=== PATIENT | male | born 1960 | race Caucasian/White ===

== ENCOUNTER 2016-03-24 16:51 | Inpatient (IN) | payer MEDICARE, MEDICAID ==
[~2016-03-24] VITALS: Ht 182.9 cm; Wt 100.6 kg
[~2016-03-24 16:51] MED LIST: /SODI15SS PO; /WARF25TA OR; /WARF5TA OR; ACET65TA OR; ALBU17IN2 INH; ALBU83IN IN; ALBU83IN INH; ALBUTEROL INHALER INH; AMLO10TA2 PO; AMLO5TAB OR; ASPI325T PO; ASPI81TA3 PO; ATEN25TA OR; ATEN25TA PO; ATOR40TA PO; ATROVENT0.02% INH; AUGM500T34 PO; CALC0.5C PO; CALC1CAP PO; CLOP75TA2 PO; COZA50TA PO; ELIQ2.5T PO; EMLA2.5C EXT; FLOVENT INH; FURO1TAB15 PO; FURO20TA2 PO; GEMF600T OR; HUMA100I SC; INSUDET SC; INSUHUMDS SC; INSULANT SC; ISOS60TA2 PO; LEVA500T PO; LIPI80TA PO; LOPR1TAB6 PO; LOPR1TAB7 PO; LOPR50TA OR; LOSA100T36 PO; LOSA50TA20 PO; LOVAZA PO; METO25TA2 OR; METO50TA2 PO; MINO25TA PO; NICO14DI3 TD; NITR0.4S SL; NITROSTAT SL SL; NORV5TAB OR; NOVOLOG100 MG/ML SC; OMEG12002 PO; OMEG1400 PO; OMEGA 3 OR; OMEP20TA7 PO; OMEP40CA2 PO; PAIN325T OR; PLAV75TA2 OR; PRAV80TA OR; SIMV80TA OR; SING10TA31 OR; SODI1POW PO; TENO25TA OR; TRIC145T19 OR; TYLENOL #3 PO; VENTAER IN; VITA200015 PO; VITA200016 PO; VITA20008 PO; WARF5VL IV; [UNRECOGNIZED DRUG - CODE] PO
--- NOTE | 2016-03-24 18:30 | REP ---
Portable chest x-ray: Two views presented: History: Chest pain. Comparison chest x-ray: 03/02/2016. Findings: The patient is rotated somewhat to the right. The heart is enlarged. The azygos vein appears dilated. This is unchanged. Pulmonary vasculature is cephalized. Interstitial markings are diffusely prominent and a few Misha B lines are visible. No pleural effusion is seen. No focal infiltrate. Impression: CHF pattern with Misha B lines, fissural thickening, vascular cephalization and cardiomegaly. No free pleural effusion seen. Signed by Yeison Krishnan MD 03/24/2016 07:47 P
[2016-03-24 19:02] LABS: BASO # 0.1 K/mm3 (0.0-0.2); EOS # 0.3 K/mm3 (0.0-0.50); EOS % 5.4 % (0.0-3.0); LARGE UNSTAINED CELL # 0.2 K/mm3 (0.0-0.4); LARGE UNSTAINED CELL % 2.5 % (0.0-4.0); LYMPH % 17.2 % (24.0-44.0); MEAN CORPUSCULAR HEMOGLOBIN 32.1 pg (27.0-33.0); MEAN CORPUSCULAR VOLUME 97.4 fl (80.0-96.0); MONO # 0.5 K/mm3 (0.0-0.8); MONO % 7.5 % (0.0-5.0); NEUTROPHILS % 66.3 % (36.0-66.0); PLATELET COUNT, AUTOMATED 215 k/mm3 (150-450); RED CELL DISTRIBUTION WIDTH 14.4 % (11.5-14.5)
[2016-03-24 19:24] LABS: CALCIUM LEVEL 9.8 MG/DL (8.5-10.1); CREATININE FOR GFR 6.02 MG/DL (0.70-1.30); GLOMERULAR FILTRATION RATE 10.3 (>56)
[2016-03-24 19:26] LABS: POTASSIUM SERUM 5.7 MEQ/L (3.5-5.1)
--- NOTE | 2016-03-24 20:40 | REPUSA ---
Clinical history: Pain, swelling. Findings: The common femoral, superficial femoral, popliteal, and other deep venous structures compre ss normally and demonstrate normal color Doppler flow. Normal venous waveforms with augmentation are seen. There are multiple large lymph nodes in the inguinal regions bilaterally. Impression: 1. No evidence of deep vein thrombosis in the femoral popliteal venous system. 2. Bilateral inguinal lymphadenopathy. Follow-up is suggested as clinically indicated.
[2016-03-24] MEDS ORDERED: FUROSEMIDE 40 MG/4 ML VIAL (J1940) As Ordered ONE (21:05)
[2016-03-24] MEDS ORDERED: ISOVUE-370 76% 100ML VIAL (Q9967) As Ordered ONE (21:28)
[2016-03-24] MEDS ORDERED: CINA30TA PO (21:34)
[2016-03-24] MEDS ORDERED: LIDO2.5C15 EXT (21:34)
[2016-03-24] MEDS ORDERED: OMEG100011 PO (21:34)
[2016-03-24] MEDS ORDERED: METO50TA2 PO (21:34)
[2016-03-24] MEDS ORDERED: CALC1CAP PO (21:34)
[2016-03-24] MEDS ORDERED: FOSR1000 PO (21:34)
[2016-03-24] MEDS ORDERED: OMEP40CA2 PO (21:34)
[2016-03-24] MEDS ORDERED: MINO25TA PO (21:34)
[2016-03-24] MEDS ORDERED: AMLO5TAB2 PO (21:34)
[2016-03-24] MEDS ORDERED: ATOR40TA PO (21:34)
[2016-03-24] MEDS ORDERED: FLUT11IN INH (21:34)
[2016-03-24] MEDS ORDERED: PROA1AER INH (21:34)
[2016-03-24] MEDS ORDERED: INSUHUMDS SC (21:34)
[2016-03-24] MEDS ORDERED: BISACODYL 5 MG TAB PO PRN (22:00)
[2016-03-24] MEDS ORDERED: IPRATROPIUM 0.5MG/ALBUTEROL 2.5MG INH SOL UD 3ML (DUONEB)(J7620) NEB PRN (22:15)
[2016-03-24] MEDS ORDERED: GLUCOSE 4 GM CHEW TABLET PO PRN (22:15)
[2016-03-24] MEDS ORDERED: GLUCAGON FOR INJ 1 MG VIAL (J1610) SC PRN (22:15)
[2016-03-24] MEDS ORDERED: DEXTROSE 50% 50 ML SYRINGE IV PRN (22:15)
--- NOTE | 2016-03-24 22:55 | EDDOCDS ---
Physician Documentation [facility] Name: Antonio Rivera Age: 55 yrs Sex: Male : 1960 Arrival Date: 03/24/2016 Time: 16:51 Bed 21 Private MD: Disposition: 03/24/16 20:51 Hospitalization ordered by Chikis Mejia for Inpatient Admission. Preliminary diagnosis are Acute pulmonary edema, Hyperkalemia - Hyponatremia. - Bed requested for PCU. - Status is Inpatient Admission. jf3 - Condition is Stable. - Problem is new. - Symptoms are unchanged. Historical: - Allergies: Tape; mushrooms; - Home Meds: 1. amlodipine 5 mg Oral tab 1 tab once daily (Last dose: 03/24/2016) 2. aspirin 325 mg Oral tab 1 tab once daily (Last dose: 03/24/2016) 3. atorvastatin 40 mg oral tab 1 tab once daily (Last dose: 03/24/2016) 4. calcium acetate 667 mg oral cap 4 caps 3 times per day (Last dose: 03/24/2016) 5. clopidogrel 75 mg oral tab 1 tab once daily (Last dose: 03/24/2016) 6. furosemide 20 mg Oral tab 4 tab once daily (Last dose: 03/24/2016) 7. Humalog Pen sliding scale Sub-Q three times a day Last dose 8 units. states uses once a day because doesn't have much left. (Last dose: 03/24/2016 10:00) 8. isosorbide mononitrate 60 mg Oral Tb24 1 tab once daily (Last dose: 03/24/2016) 9. Levemir FlexTouch 100 unit/mL (3 mL) subcutaneous inpn 12 unit daily (Last dose: 03/24/2016) 10. Lopressor 50 mg Oral tab 2 times per day (Last dose: 03/24/2016) 11. losartan 100 mg oral tab 1 tab once daily (Last dose: 03/24/2016) 12. minoxidil 2.5 mg Oral tab 2 tabs 2 times per day (Last dose: 03/24/2016) 13. [place] 3 Fish Oil 900-1,400 mg oral cpDR twice a day 14. omeprazole 40 mg Oral cpDR 1 cap once daily (Last dose: 03/24/2016) 15. Sensipar 30 mg oral tab 1 tab once daily (Last dose: 03/24/2016) 16. Vitamin D Oral 2000 unit daily 17. Vitamin D3 4,000 unit oral cap daily - PMHx: Asthma; CHF; COPD; Diabetes - IDDM: controlled; Heart Disease; Renal Failure with Dialysis; Stroke; GERD; - PSHx: Cardiac stents; Open heart surgery; Appendectomy; Tonsillectomy; Adenoidectomy; - Social history: Smoking status: Patient uses tobacco products, current every day smoker. No barriers to communication noted, The patient speaks fluent Spanish. - Family history: Not pertinent. - : The pt / caregiver states he / she is on anticoagulants: Plavix. Home medication list is obtained from the patient. - Exposure Risk Screening:: None identified. Vital Signs: 03/24 17:00 BP 123 / 85 (auto/); jf3 17:02 Pulse 84 MON; Pulse Ox 99% ; jf3 17:03 BP 123 / 85; Pulse 86; Resp 18; Temp 99.2(TE); Pulse Ox 98% on R/A; Weight 99.79 kg / ct3 220 lbs (R); Height 6 ft. 0 in. (182.88 cm) (R); Pain 7/10; 17:15 BP 164 / 77 (auto/); jf3 17:15 Pulse 84 MON; Pulse Ox 96% ; jf3 17:30 BP 166 / 91 (auto/); jf3 17:30 Pulse 86 MON; Pulse Ox 95% ; jf3 17:45 BP 160 / 75 (auto/); jf3 17:45 Pulse 84 MON; Pulse Ox 92% ; jf3 17:59 Pulse 82 MON; Pulse Ox 94% ; jf3 18:00 BP 149 / 68 (auto/); jf3 18:14 Pulse 86 MON; Pulse Ox 93% ; jf3 18:15 BP 191 / 84 (auto/); jf3 18:49 BP 203 / 95 (auto/); jf3 18:50 Pulse 82 MON; Pulse Ox 93% ; jf3 19:04 BP 197 / 100 (auto/); jf3 19:06 Pulse 82 MON; Pulse Ox 94% ; jf3 19:19 BP 194 / 94 (auto/); jf3 19:20 Pulse 84 MON; Pulse Ox 96% ; jf3 19:34 BP 183 / 75 (auto/); jf3 19:36 Pulse 82 MON; Pulse Ox 93% ; jf3 19:49 BP 173 / 82 (auto/); jf3 19:51 Pulse 82 MON; Pulse Ox 93% ; jf3 20:04 BP 194 / 88 (auto/); jf3 20:04 Pulse 82 MON; Pulse Ox 96% ; jf3 20:19 BP 173 / 79 (auto/); jf3 20:20 Pulse 82 MON; Pulse Ox 96% ; jf3 20:34 BP 173 / 94 (auto/); jf3 20:35 Pulse 82 MON; Pulse Ox 96% ; jf3 20:49 BP 197 / 88 (auto/); jf3 20:49 Pulse 92 MON; Pulse Ox 94% ; jf3 20:50 Pulse 88 MON; Pulse Ox 94% ; jf3 21:04 BP 183 / 79 (auto/); jf3 21:19 BP 175 / 76 (auto/); jf3 21:19 Pulse 84; Pulse Ox 92% ; jf3 21:34 BP 154 / 66 (auto/); jf3 21:35 Pulse 81; Pulse Ox 93% ; jf3 21:49 BP 187 / 81 (auto/); jf3 21:49 Pulse 80; Pulse Ox 94% ; jf3 22:04 BP 178 / 82 (auto/); jf3 22:05 Pulse 84; Pulse Ox 93% ; jf3 22:33 BP 188 / 81; Pulse 87; Resp 20; Temp 96.8(O); Pulse Ox 97% on R/A; Pain 0/10; jf3 17:03 Body Mass Index 29.84 (99.79 kg, 182.88 cm) ct3 MDM: 17:17 ECG WITH READING ER PHYS+CARDIAG ordered. EDMS 17:24 Levers Lace Machine Operator/Pulse Ox/q 30 min VS ordered. br1 17:24 IV Saline Lock ordered. br1 17:24 Rhythm Strip to chart ordered. br1 17:24 Undress patient appropriately for examination ordered. br1 17:25 Basic Metabolic Profile Ordered. EDMS 17:25 CBC with Diff Ordered. EDMS 17:25 Cardiac Injury Profile Ordered. EDMS 17:25 Troponin Ordered. EDMS 17:26 Chest, 1 View Ordered. EDMS 18:22 BNP Ordered. EDMS 18:22 D-Dimer Quant Ordered. EDMS 18:23 -Influenza A&B Rapid Antigen - Nose Ordered. EDMS 18:50 Financial registration complete. zo 18:50 [facility] Payment Agreement was scanned into [employer] and attached to record. zo 19:20 CBC with Diff Reviewed. br1 19:20 D-Dimer Quant Reviewed. br1 19:20 Chest, 1 View Reviewed. br1 19:22 Ultrasound Bilateral LE R/O DVT Ordered. EDMS 19:22 -Influenza A&B Rapid Antigen - Nose Reviewed. br1 20:28 Basic Metabolic Profile Reviewed. br1 20:28 BNP Reviewed. br1 20:28 Cardiac Injury Profile Reviewed. br1 20:28 Troponin Reviewed. br1 20:37 Chest, 1 View Reviewed. br1 20:42 BED REQUEST+ADM ordered. EDMS 20:47 Furosemide 40 mg IVP once ordered. br1 20:50 CT Chest Angio R/O PE Ordered. EDMS 21:59 CBC WITH DIFFERENTIAL Ordered. EDMS 22:00 Admission / Observation Status ordered. EDMS 22:00 CONSISTENT CARBOHYDRATES ordered. EDMS 22:14 RENAL PROFILE Ordered. EDMS 22:21 SODIUM,RANDOM URINE Ordered. EDMS 22:26 TROPONIN Ordered. EDMS 22:26 TROPONIN Ordered. EDMS Administered Medications: 21:08 Drug: Furosemide 40 mg [furosemide 10 mg/mL injection solution (4 mL)] Route: IVP; jf3 Site: right forearm; 22:54 Follow up: Response: No Adverse Reaction jf3 Signatures: Dispatcher [employer] EDMS RogerNimeshTrinity, Enrollment Consultant Unit ml3 Eedl Lantigua Brian, MD MD br1 Zhang ArredondoRN RN jf3 The chart was reviewed and I authenticate all verbal orders and agree with the evaluation and treatment provided.Corrections: (The following items were deleted from the chart) 22:17 21:59 BASIC METABOLIC PROFILE ordered. EDMS EDMS Attachments: 18:50 [facility] [place] Payment Agreement zo MTDD
--- NOTE | 2016-03-24 22:56 | EDDOCDS ---
Nurse's Notes [facility] Name: Antonio Rivera Age: 55 yrs Sex: Male : 1960 Arrival Date: 03/24/2016 Time: 16:51 Bed 21 Private MD: Diagnosis: Acute pulmonary edema;Hyperkalemia-Hyponatremia Presentation: 03/24 17:00 Presenting complaint: EMS states: CP w/ SOB started last night. worsening today, called jf3 EMS from home. Presenting complaint: Patient states: Pt states his chest hurts and he's: having a hell of a time breathing". States SOB started last night and CP started this morning. Aspirin was taken PATENT PARALEGAL. Adult Sepsis Screening:. Adult Sepsis Screening: The patient does not have new or worsening altered mentation. Patient's respiratory rate is less than 22. Systolic blood pressure is greater than 100. Patient has a qSOFA score of 0- Negative Sepsis Screen. Suicide/Homicide risk assessment- the patient denies having any suicidal and/or homicidal ideations and does not present with any other emotional, behavioral or mental health complaints. Status: Patient is not a cdl service technician or dependent. Transition of care: patient was not received from another setting of care. Care prior to arrival: See EMS report. Medications administered prior to arrival: ASA, NTG, BP dropped after first NTG Oxygen administered by EMS. 17:00 Acuity: [place]AG[place] Level 2 jf3 17:00 Method Of Arrival: Ambulance jf3 Triage Assessment: 17:11 General: Appears in no apparent distress, comfortable, Behavior is cooperative. Pain: jf3 Location: mid-sternal area Pain currently is 5 out of 10 on a pain scale. Pain radiates to anterior aspect of left upper chest. HIV screening NA for this visit Offered previously. The patient is triaged at the bedside. See Assessment in Nurses Notes section of ED record. Cardiovascular: Chest pain is described as mild, radiates to left chest episodes are intermittent began this morning. Historical: - Allergies: Tape; mushrooms; - Home Meds: 1. amlodipine 5 mg Oral tab 1 tab once daily (Last dose: 03/24/2016) 2. aspirin 325 mg Oral tab 1 tab once daily (Last dose: 03/24/2016) 3. atorvastatin 40 mg oral tab 1 tab once daily (Last dose: 03/24/2016) 4. calcium acetate 667 mg oral cap 4 caps 3 times per day (Last dose: 03/24/2016) 5. clopidogrel 75 mg oral tab 1 tab once daily (Last dose: 03/24/2016) 6. furosemide 20 mg Oral tab 4 tab once daily (Last dose: 03/24/2016) 7. Humalog Pen sliding scale Sub-Q three times a day Last dose 8 units. states uses once a day because doesn't have much left. (Last dose: 03/24/2016 10:00) 8. isosorbide mononitrate 60 mg Oral Tb24 1 tab once daily (Last dose: 03/24/2016) 9. Levemir FlexTouch 100 unit/mL (3 mL) subcutaneous inpn 12 unit daily (Last dose: 03/24/2016) 10. Lopressor 50 mg Oral tab 2 times per day (Last dose: 03/24/2016) 11. losartan 100 mg oral tab 1 tab once daily (Last dose: 03/24/2016) 12. minoxidil 2.5 mg Oral tab 2 tabs 2 times per day (Last dose: 03/24/2016) 13. [place] 3 Fish Oil 900-1,400 mg oral cpDR twice a day 14. omeprazole 40 mg Oral cpDR 1 cap once daily (Last dose: 03/24/2016) 15. Sensipar 30 mg oral tab 1 tab once daily (Last dose: 03/24/2016) 16. Vitamin D Oral 2000 unit daily 17. Vitamin D3 4,000 unit oral cap daily - PMHx: Asthma; CHF; COPD; Diabetes - IDDM: controlled; Heart Disease; Renal Failure with Dialysis; Stroke; GERD; - PSHx: Cardiac stents; Open heart surgery; Appendectomy; Tonsillectomy; Adenoidectomy; - Social history: Smoking status: Patient uses tobacco products, current every day smoker. No barriers to communication noted, The patient speaks fluent Arabic. - Family history: Not pertinent. - : The pt / caregiver states he / she is on anticoagulants: Plavix. Home medication list is obtained from the patient. - Exposure Risk Screening:: None identified. Screenin:13 Screening information is obtained from the patient. Fall risk: No risks identified. jf3 Assistance ADL's: requires no assistance with activities of daily living. Abuse/DV Screen: The patient / caregiver reports he/she is: not in a situation that causes fear, pain or injury. Nutritional screening: On renal diet. Advance Directives: Currently, there is a health care proxy, Yee Rivera, . There is an active DNR order but there is no copy available at this time. home support is adequate. Assessment: 18:31 General: Appears in no apparent distress, comfortable, Behavior is cooperative. Pain: jf3 Location: mid-sternal area Pain currently is 9 out of 10 on a pain scale. Neurological: Level of Consciousness is awake, alert, Oriented to person, place, time. Cardiovascular: Capillary refill < 3 seconds Heart tones S1 S2 present Chest pain. Respiratory: Airway is patent Respiratory effort is even, unlabored, Respiratory pattern is regular, symmetrical, Breath sounds are diminished bilaterally. GI: Abdomen is non- distended Bowel sounds present X 4 quads. Abd is soft and non tender X 4 quads. Derm: Rash noted that is noted to bilateral lower extremities, pt states unknown origin. 19:30 General: Appears in no apparent distress, Behavior is cooperative, Pt resting supine on jf3 stretcher with family at bedside. Pt states feeling SOB at this time. SPO2 stable, QMP aware. 20:23 General: Appears in no apparent distress, comfortable, Behavior is cooperative. jf3 General: Pt states he feels slightly SOB but has improved since coming to ED. Denies pain. Respirations easy and unlabored. Family at bedside. Box lunch given per Dr Ybarra. Pain: Denies pain. Cardiovascular: Rhythm is sinus rhythm. 21:30 General: Appears in no apparent distress, comfortable. General: Pt resting supine on jf3 stretcher with family at bedside. Respirations easy and unlabored. Call light in reach. Will continue to monitor. Pain:. 22:33 General: Appears in no apparent distress, comfortable, Behavior is cooperative. Pain: jf3 Denies pain. Neurological: Level of Consciousness is awake, alert, Oriented to person, place, time. Cardiovascular: Capillary refill < 3 seconds. Respiratory: Airway is patent Respiratory effort is even, unlabored, Respiratory pattern is regular, symmetrical. Derm: Skin is normal. Vital Signs: 17:00 BP 123 / 85 (auto/); jf3 17:02 Pulse 84 MON; Pulse Ox 99% ; jf3 17:03 BP 123 / 85; Pulse 86; Resp 18; Temp 99.2(TE); Pulse Ox 98% on R/A; Weight 99.79 kg ct3 (R); Height 6 ft. 0 in. (182.88 cm) (R); Pain 7/10; 17:15 BP 164 / 77 (auto/); jf3 17:15 Pulse 84 MON; Pulse Ox 96% ; jf3 17:30 BP 166 / 91 (auto/); jf3 17:30 Pulse 86 MON; Pulse Ox 95% ; jf3 17:45 BP 160 / 75 (auto/); jf3 17:45 Pulse 84 MON; Pulse Ox 92% ; jf3 17:59 Pulse 82 MON; Pulse Ox 94% ; jf3 18:00 BP 149 / 68 (auto/); jf3 18:14 Pulse 86 MON; Pulse Ox 93% ; jf3 18:15 BP 191 / 84 (auto/); jf3 18:49 BP 203 / 95 (auto/); jf3 18:50 Pulse 82 MON; Pulse Ox 93% ; jf3 19:04 BP 197 / 100 (auto/); jf3 19:06 Pulse 82 MON; Pulse Ox 94% ; jf3 19:19 BP 194 / 94 (auto/); jf3 19:20 Pulse 84 MON; Pulse Ox 96% ; jf3 19:34 BP 183 / 75 (auto/); jf3 19:36 Pulse 82 MON; Pulse Ox 93% ; jf3 19:49 BP 173 / 82 (auto/); jf3 19:51 Pulse 82 MON; Pulse Ox 93% ; jf3 20:04 BP 194 / 88 (auto/); jf3 20:04 Pulse 82 MON; Pulse Ox 96% ; jf3 20:19 BP 173 / 79 (auto/); jf3 20:20 Pulse 82 MON; Pulse Ox 96% ; jf3 20:34 BP 173 / 94 (auto/); jf3 20:35 Pulse 82 MON; Pulse Ox 96% ; jf3 20:49 BP 197 / 88 (auto/); jf3 20:49 Pulse 92 MON; Pulse Ox 94% ; jf3 20:50 Pulse 88 MON; Pulse Ox 94% ; jf3 21:04 BP 183 / 79 (auto/); jf3 21:19 BP 175 / 76 (auto/); jf3 21:19 Pulse 84; Pulse Ox 92% ; jf3 21:34 BP 154 / 66 (auto/); jf3 21:35 Pulse 81; Pulse Ox 93% ; jf3 21:49 BP 187 / 81 (auto/); jf3 21:49 Pulse 80; Pulse Ox 94% ; jf3 22:04 BP 178 / 82 (auto/); jf3 22:05 Pulse 84; Pulse Ox 93% ; jf3 22:33 BP 188 / 81; Pulse 87; Resp 20; Temp 96.8(O); Pulse Ox 97% on R/A; Pain 0/10; jf3 17:03 Body Mass Index 29.84 (99.79 kg, 182.88 cm) ct3 Vitals: 17:03 Log In Time N/A - ambulance arrival. ct3 ED Course: 16:52 Patient visited by Stephany Roa, Mail Sorting Supervisor. deg 16:52 Patient moved to Waiting deg 16:53 Patient moved to 21 deg 17:03 Accompanied by Family Member, Patient has correct armband on for positive ct3 identification. Placed in gown. Bed in low position. Call light in reach. Side rails up X2. court monitor on. Pulse ox on. NIBP on. 17:04 Patient visited by Taylor Savage PCA. ct3 17:05 Triage Initiated jf3 17:13 The patient / caregiver is instructed regarding the plan of care and ED course. jf3 17:15 Patient visited by Zhang Arredondo RN. jf3 17:24 Patient visited by Jhonny Ventura. dem1 17:24 EKG done. (by ED staff). Reviewed by Joseph Ybarra MD. dem1 18:12 Joseph Ybarra MD is Attending Physician. br1 18:21 Patient visited by Joseph Ybarra MD. br1 18:34 Missed attempts: 20 gauge X 2 in right forearm. jf3 18:50 [facility] [place] Agreement was scanned into [email or web address] and attached to record. zo 18:58 Chest, 1 View Returned. EDMS 19:12 Patient visited by Pancho Ramirez PCA. kb5 19:39 Patient moved to Ultrasound dmg 20:10 Patient visited by Pancho Ramirez PCA. kb5 20:13 Patient moved to 21 dmg 20:35 Chest, 1 View Returned. EDMS 20:51 Chikis Mejia is Hospitalizing Provider. br1 21:13 Patient visited by Zhang Arredondo RN. jf3 21:25 Ultrasound Bilateral LE R/O DVT Returned. EDMS 22:53 No procedures done that require assistance. jf3 Administered Medications: 21:08 Drug: Furosemide 40 mg [furosemide 10 mg/mL injection solution (4 mL)] Route: IVP; jf3 Site: right forearm; 22:54 Follow up: Response: No Adverse Reaction jf3 Order Results: Lab Order: Basic Metabolic Profile; SPEC'M 03/24/16 18:50 Test: GLUCOSE, FASTING; Value: 101; Range: 70-105; Units: MG/DL; Status: F Test: BLOOD UREA NITROGEN; Value: 27; Range: 7-18; Abnormal: Above high normal; Units: MG/DL; Status: F Test: CREATININE FOR GFR; Value: 6.02; Range: 0.70-1.30; Abnormal: Above high normal; Units: MG/DL; Status: F Test: GLOMERULAR FILTRATION RATE; Value: 10.3; Range: >56; Abnormal: Below low normal; Status: F Test: SODIUM LEVEL; Value: 129; Range: 136-145; Abnormal: Below low normal; Units: MEQ/L; Status: F Test: POTASSIUM SERUM; Value: 5.7; Range: 3.5-5.1; Abnormal: Above high normal; Units: MEQ/L; Status: F Test: CHLORIDE LEVEL; Value: 91; Range: 98-107; Abnormal: Below low normal; Units: MEQ/L; Status: F Test: CARBON DIOXIDE LEVEL; Value: 27; Range: 21-32; Units: MEQ/L; Status: F Test: ANION GAP; Value: 11; Range: 8-16; Units: MEQ/L; Status: F Test: CALCIUM LEVEL; Value: 9.8; Range: 8.5-10.1; Units: MG/DL; Status: F Test Note: ; Units are mL/min/1.73 m2 Chronic Kidney Disease Staging per NKF: Stage I & II GFR >=60 Normal to Mildly Decreased Stage III GFR 30-59 Moderately Decreased Stage IV GFR 15-29 Severely Decreased Stage V GFR <15 Very Little GFR Left ESRD GFR <15 on FINGERPRINT CLERK Lab Order: CBC with Diff; SPEC'M 01/16/17 18:50 Test: WHITE BLOOD COUNT; Value: 6.0; Range: 4.0-10.0; Units: K/mm3; Status: F Test: RED BLOOD COUNT; Value: 3.12; Range: 4.30-6.10; Abnormal: Below low normal; Units: M/mm3; Status: F Test: HEMOGLOBIN; Value: 10.0; Range: 14.0-18.0; Abnormal: Below low normal; Units: g/dl; Status: F Test: HEMATOCRIT; Value: 30.4; Range: 42.0-52.0; Abnormal: Below low normal; Units: %; Status: F Test: MEAN CORPUSCULAR VOLUME; Value: 97.4; Range: 80.0-96.0; Abnormal: Above high normal; Units: fl; Status: F Test: MEAN CORPUSCULAR HEMOGLOBIN; Value: 32.1; Range: 27.0-33.0; Units: pg; Status: F Test: MEAN CORPUSCULAR HGB CONC; Value: 33.0; Range: 32.0-36.5; Units: g/dl; Status: F Test: RED CELL DISTRIBUTION WIDTH; Value: 14.4; Range: 11.5-14.5; Units: %; Status: F Test: PLATELET COUNT, AUTOMATED; Value: 215; Range: 150-450; Units: k/mm3; Status: F Test: NEUTROPHILS %; Value: 66.3; Range: 36.0-66.0; Abnormal: Above high normal; Units: %; Status: F Test: LYMPH %; Value: 17.2; Range: 24.0-44.0; Abnormal: Below low normal; Units: %; Status: F Test: MONO %; Value: 7.5; Range: 0.0-5.0; Abnormal: Above high normal; Units: %; Status: F Test: EOS %; Value: 5.4; Range: 0.0-3.0; Abnormal: Above high normal; Units: %; Status: F Test: BASO %; Value: 1.0; Range: 0.0-1.0; Units: %; Status: F Test: LARGE UNSTAINED CELL %; Value: 2.5; Range: 0.0-4.0; Units: %; Status: F Test: NEUTROPHILS #; Value: 4.0; Range: 1.8-7.7; Units: K/mm3; Status: F Test: LYMPH #; Value: 1.0; Range: 1.5-4.5; Abnormal: Below low normal; Units: K/mm3; Status: F Test: MONO #; Value: 0.5; Range: 0.0-0.8; Units: K/mm3; Status: F Test: EOS #; Value: 0.3; Range: 0.0-0.50; Units: K/mm3; Status: F Test: BASO #; Value: 0.1; Range: 0.0-0.2; Units: K/mm3; Status: F Test: LARGE UNSTAINED CELL #; Value: 0.2; Range: 0.0-0.4; Units: K/mm3; Status: F Lab Order: Cardiac Injury Profile; [facility]' 03/24/16 18:50 Test: CPK CREATINE PHOSPHOKINASE; Value: 148; Range: 39-308; Units: U/L; Status: F Test: CK-MB VALUE MASS; Value: 3.5; Range: 0.0-3.6; Units: NG/ML; Status: F Test: MB/CK RELATIVE INDEX; Value: 2.36; Range: < OR =4; Status: F Test Note: ; DIAGNOSIS CRITERIA MMB ng/ml Relative Index (RI) NON-AMI < or = 5 N/A MNOREAL ZONE > 5 < or = 4 AMI > 5 > 4 Lab Order: Troponin; [facility]' 03/24/16 18:50 Test: TROPONIN I; Value: 0.07; Range: < 0.10; Units: NG/ML; Status: F Test Note: ; Troponin I Reference Interval for Siemens [place] Pro LOCI: 99th Percentile= 0.00-0.045 ng/ml Risk Stratification: <= 0.10 ng/ml Decreased Risk for Adverse Clinical Events. 0.10-1.50 ng/ml Increased Risk for Adverse Clinical Events. Evaluation of additional criterion and/or repeat testing in 2-6 hours is suggested to rule out myocardial damage. >= 1.50 ng/ml Indicative of Myocardial Injury. Lab Order: BNP; SPEC' 03/24/16 18:50 Test: BRAIN NATRIURETIC PEPTIDE; Value: > 5000; Range: <100; Abnormal: Above high normal; Units: PG/ML; Status: F Lab Order: D-Dimer Quant; SPEC'M 03/24/16 18:50 Test: D-DIMER QUANT; Value: 2037.8; Range: <500; Abnormal: Above high normal; Units: ng/ml; Status: F Lab Order: -Influenza A&B Rapid Antigen - Nose; SPEC'M 03/24/16 18:54 Test: INFLUENZA A RAPID SCR by ICA; Value: INFLUENZA A RESULTS NEGATIVE; Status: F Test: INFLUENZA A RAPID SCR by ICA; Value: Comments:; Status: F Test: INFLUENZA B RAPID SCR by ICA; Value: INFLUENZA B RESULTS NEGATIVE; Status: F Test Note: ; The Influenza test is a direct rapid immunoassay for the qualitative detection of Influenza viral antigen. Cell culture (Viral Culture) testing should be considered to confirm NEGATIVE results and to assist in detecting other viruses that can provide similar clinical symptoms. Please contact the lab within 24 hours ([phone] if confirmatory testing is desired. Radiology Order: Chest, 1 View Test: Chest, 1 View REASON FOR EXAMINATION: Chest Pain; Portable chest x-ray: Two views presented:; ; History: Chest pain.; ; Comparison chest x-ray: 03/02/2016.; ; Findings: The patient is rotated somewhat to the right. The heart is enlarged.; The azygos vein appears dilated. This is unchanged. Pulmonary vasculature is; cephalized. Interstitial markings are diffusely prominent and a few Misha B; lines are visible. No pleural effusion is seen. No focal infiltrate.; ; Impression:; ; CHF pattern with Misha B lines, fissural thickening, vascular cephalization and; cardiomegaly. No free pleural effusion seen.; ; ; Signed by; Yeison Krishnan MD 03/24/2016 07:47 P; Radiology Order: Ultrasound Bilateral LE R/O DVT Test: Ultrasound Bilateral LE R/O DVT REASON FOR EXAMINATION: Deformity/Swelling; ; Clinical history: Pain, swelling.; Findings: The common femoral, superficial femoral, popliteal, and other deep venous structures compre; ss normally and demonstrate normal color Doppler flow. Normal venous waveforms with augmentation are; seen. There are multiple large lymph nodes in the inguinal regions bilaterally.; Impression:; 1. No evidence of deep vein thrombosis in the femoral popliteal venous system.; 2. Bilateral inguinal lymphadenopathy. Follow-up is suggested as clinically indicated.; ; Outcome: 20:51 Decision to Hospitalize by Provider. br1 22:53 Discharge Assessment: patient administered narcotics - no. The following High Risk jf3 Discharge criteria are identified: None. Admitted to PCU accompanied by nurse, accompanied by tech, via stretcher, on monitor, with chart. Condition: stable. CT Study completed. Ultrasound Study completed. Property :Personal belongings accompany Pt. 22:54 Patient left the ED. jf3 Signatures: Dispatcher [employer] EDMS Stephany Roa, Mail Sorting Supervisor Unit Benita Handy Zoeann zo [place]roft, Kristopher, REGION MANAGER REGION MANAGER kb5 Joseph Ybarra MD MD br1 Taylor Savage, REGION MANAGER REGION MANAGER ct3 Jhonny Ventura dem1 Zhang Arredondo,RN RN jf3 Corrections: (The following items were deleted from the chart) 17:14 17:13 Advance Directives: Currently, there is a health care proxy, Yee Rivera, . jf3 There is no active DNR order. jf3 MTDD
[2016-03-24 23:00] VITALS: BP 178/78
--- NOTE | 2016-03-24 23:00 | REPUSA ---
CT angiogram of the chest Clinical statement: Chest pain and shortness of breath. Technique: Multiple axial CT images were obtained from the thoracic inlet through the upper abdomen a fter a bolus administration of nonionic intravenous contrast. Coronal and sagittal reconstructions we re also obtained. No comparison is available. Findings: The pulmonary arteries are well-opacified with contrast, with no intraluminal filling defec ts to suggest embolism. The thoracic aorta is unremarkable. Thyroid gland is within normal limits. Th ere is no thoracic lymphadenopathy. There are no pericardial effusion. There is a small left-sided pl eural effusion. The lungs are clear. Limited imaging of the upper abdomen is unremarkable. There are no suspicious osseous lesions. Impression: 1. No evidence of pulmonary embolism. 2. Small left-sided pleural effusion.
[2016-03-24 23:20] LABS: INR 1.03
[2016-03-24] MEDS ORDERED: FUROSEMIDE 100 MG/10 ML VIAL (J1940) IV ONE (23:45)
[2016-03-24] MEDS: METOPROLOL TART 50 MG TAB PO SCH (23:46)
[2016-03-24] MEDS: NICOTINE 14 MG/24 HR TRANSDERMAL TD SCH (23:46)
[2016-03-25] VITALS (7 sets, daily range): BP systolic 140–148; BP diastolic 62–86; O2SAT 91
--- NOTE | 2016-03-25 01:08 | HPE ---
DATE OF ADMISSION: 03/24/2016 PRIMARY CARE PROVIDER: Dr. Tonny Cartwright. FRESH WORK INSPECTOR: Dr. Coelho. IMPROVEMENT AUDITOR: Dr. Oconnell. CHIEF COMPLAINT: Shortness of breath. HISTORY OF PRESENT ILLNESS: Mr. Rivera is a 55-year-old male with past medical history of end-stage renal disease on hemodialysis, systolic heart failure, coronary artery disease (CAD) status post coronary artery bypass graft (CABG), who presented to the emergency department (ED) [facility] with complaint of worsening shortness of breath. Episode started last night while he was lying in bed watching television. He essentially ignored his symptoms until this afternoon when it continued to be persistent while he was lying down petting a dog. States that 3-4 months ago he was able to walk three blocks without significant shortness of breath; however, symptoms have progressed in the last few months. He now has difficulty with ambulation around the house because of his breathing. Can barely walk upstairs without shortness of breath. Associated with paroxysmal nocturnal dyspnea, 11-pound weight gain in the last month, leg edema, dry cough. Was eating a lot more around the holidays and did not follow any food restriction. He had one episode of chest pain this morning with his shortness of breath. Episode lasted for approximately 5 minutes, described as stabbing in nature, located in mid chest, no radiation, which resolved on its own. No pillow orthopnea, palpitations, fever, chills, night sweats. Despite his renal disease, he continues to report good urine output which has not decreased in the last few days. His last dialysis was on Thursday, which he claimed to have 7000 mL removed and left him feeling tired. Reports compliance with all his medications. He is on fluid restriction, but states that he does drink whatever he likes. Unable to quantify the amount that he drinks. In the ED, was given Lasix 40 mg intravenously (IV) times one. PAST MEDICAL HISTORY: 1. End-stage renal disease on hemodialysis Thursday, , Thursday. 2. Systolic heart failure (CHF), EF of 30-35% from July 2015. He was offered an automatic implantable cardioverter-defibrillator (AICD), but he declined this in the past. 3. Paroxysmal atrial fibrillation. Claims to be on Coumadin, but medication is not on his list currently. 4. Chronic obstructive pulmonary disease (COPD), not oxygen dependent. 5. Type 2 diabetes. 6. CAD status post CABG. 7. Peripheral vascular disease (PVD). 8. Pulmonary hypertension, pulmonary artery systolic pressure 40-50, Echocardiogram from July 2015. 9. Peripheral neuropathy. 10. Gastroesophageal reflux disease (GERD). 11. Prior history of noncompliance. 12. Tobacco abuse. PAST SURGICAL HISTORY: 1. CABG, angioplasty and coronary stents. 2. Left arteriovenous (AV) fistula placement. 3. Appendectomy. 4. Right great toe amputation. 5. Carotid angioplasty. ALLERGIES: No known drug allergies. HOME MEDICATIONS: - ProAir HFA two puffs inhaled every 4 hours as needed - Norvasc 5 mg by mouth daily - aspirin 325 mg by mouth daily - Lipitor 40 mg by mouth daily - calcium acetate by mouth with meals - Sensipar 30 mg by mouth daily - Plavix 75 mg by mouth daily - Flovent two puffs inhaled twice a day - Lasix 80 mg by mouth daily - Levemir 12 units daily - Humalog insulin sliding scale - isosorbide mononitrate 60 mg by mouth daily - Fosrenol 1000 mg with meal - lidocaine topical weekly with dialysis - losartan 100 mg by mouth daily - Toprol tartrate 50 mg by mouth twice a day - minoxidil 5 mg by mouth twice a day - omega one capsule by mouth twice a day - omeprazole 40 mg by mouth daily FAMILY HISTORY: Father from heart attack, CHF. Mother with COPD, diabetes. One sister from lung cancer. SOCIAL HISTORY: The patient is a current smoker, used to smoke up to five packs a day for 40 years, currently smokes half a pack a day. No alcohol or drug use. No recent travel. Lifetime travel includes going to [place], back and forth to [place]. He used to work as a [employer]. Currently lives at home with and one cat. No exposure to tuberculosis, asbestos he is aware of. REVIEW OF SYSTEMS: CONSTITUTIONAL: Positive for chills and 11-pound weight gain. No fevers, night sweats, rigors. HEENT: Denies headaches, lightheadedness, dizziness, blurry vision, difficulty with speech and swallow. CARDIOVASCULAR: As above. PULMONARY: As above. GASTROINTESTINAL: Denies hematochezia, melena, or hematemesis, nausea, vomiting , diarrhea, constipation. GENITOURINARY: No dysuria, frequency or hematuria. MUSCULOSKELETAL: No bone, muscle, joint pain. NEUROLOGICAL: No paralysis. States he had a headache after given nitroglycerin, though there is no documentation of this. Chronic paresthesia from diabetes. ENDOCRINE: Positive for diabetes. Negative for thyroid disease. LYMPHATICS: No lumps, bumps, or swelling anywhere in neck, axilla, or groin. HEMATOLOGY: No abnormal bleeding or bruising. ONCOLOGY: No history of malignancy. PHYSICAL EXAMINATION: VITAL SIGNS: Blood pressure initially 123/86, did go up to as high as systolic 203, heart rate 84, mostly in the 80s range, temperature 99.2, pulse oximetry fluctuated 92-99 on room air. Body mass index (BMI) is 30. GENERAL: Patient is lying in bed, approximately 45-degree angle, comfortable, no acute respiratory distress. Alert, awake, oriented times three, cooperative, chronically ill appearing. Family at bedside. Patient is communicating in full sentences without any respiratory distress. HEENT: Normocephalic, atraumatic. Moist oral mucosa. Edentulous. Extraocular movement intact. NECK: Supple. Trachea midline. Jugular venous distention (JVD) by the jaw line. Large neck. CHEST: Symmetric chest rise. No accessory muscle use. Breath sounds diminished bilateral lung bases with occasional crackles and wheezing. Prolonged expiratory phase. There is dullness to percussion. Chest with a midline healed incisional scar. HEART: Regular sounding, normal S1, S2. ABDOMEN: Obese, but nontender, nondistended. Bowel sounds present. No guarding. No rebound. EXTREMITIES: 2+ pitting edema extending sacrally. INTEGUMENT: There are multiple erythematous spots throughout his bilateral lower extremities, which he claims is from his dry skin and scratching. NEUROLOGIC: Sensory diminished bilateral lower extremities, which reportedly is chronic. MUSCULOSKELETAL: Right first metatarsal status post amputation. LABORATORY DATA: WBC 6, hemoglobin 10.0, hematocrit 30.4, platelets 215, neutrophils 66.3. Sodium 129, potassium 5.7, chloride 91, carbon dioxide 27, BUN 27, creatinine 6.02, glucose 101. BNP 5000. D-dimer 2037. Influenza screen pending. Ultrasound bilateral lower extremities no deep venous thrombosis (DVT). There is an incidental pickup of bilateral inguinal lymphadenopathy. Chest x-ray showed basilar cephalization, cardiomegaly, pulmonary congestion, Misha B lines, no pleural effusion. CTA pending. EKG showed rate of 85, QTc 440, sinus rhythm. No significant change compared to prior. IMPRESSION AND PLAN: Mr. Rivera is a 55-year-old male, past medical history of congestive heart failure (CHF), systolic, end-stage renal disease on hemodialysis, who presented with shortness of breath. 1. Shortness of breath. Based on his imaging, clinical findings, this is likely secondary to CHF exacerbation. He already received a one-time dose of Lasix in the emergency department (ED). Have consulted Dr. Oconnell for assistance for dialysis. The patient is due for dialysis tomorrow. Currently, he appears stable. Continue to trend troponin. EKG did not show significant changes compared to prior. 2. Congestive heart failure, systolic. Decompensated. Ejection fraction (EF) from July 2015 was 30-35%. Apparently, discussion and need for automatic implantable cardioverter-defibrillator (AICD) were taken place in the past, but patient declined this offer. Patient will be sent for dialysis tomorrow. 3. End-stage renal disease on hemodialysis. Dialysis plan as mentioned above. 4. Hypertension. Continue home dose antihypertensive agents except for Cozaar. 5. Hyperkalemia. Likely secondary to medication use. We expect this to improve after Lasix dose and insulin therapy. Hold Cozaar dose for now. 6. Hyponatremia. Serum osmolality is 273. Hypervolemic hypotonic. Check urine sodium. 7. Anemia. His hemoglobin currently appears to be at baseline. Continue to monitor for now. He does have a history of transfusion in the past. 8. Diabetes. Check hemoglobin A1c in the morning. 9. Paroxysmal atrial fibrillation. Patient is currently in sinus rhythm. Review of prior records indicated that he was on Eliquis 2.5 twice a day; however, he claims that he is currently on Coumadin. However, this is currently not on his medication list. Will check coagulation studies. 10. Tobacco abuse. Start nicotine patch. 11. Deep venous thrombosis (DVT) prophylaxis. Sequential compression devices (SCDs), thromboembolism deterrent stockings (TEDS), check coagulation before considering pharmacological intervention. In the meantime, continue SCDs and TEDs. DISPOSITION: Due to the patient's condition, we expect his stay to be greater than two midnights. My preceptor for this patient encounter was Dr. Chikis Mejia. The preceptor was physically present in the building during the encounter and was fully available as needed. All aspects of the patient interview, examination, medical decision making process, and medical care plan development were reviewed and approved by the preceptor. The preceptor is aware and concurs with the plan as stated in the body of this note and will attest to such by his/her co-signature. TIFFANY
[2016-03-25] MEDS: MINOXIDIL 2.5 MG TAB PO SCH ×3 (01:16→21:12)
[2016-03-25] MEDS: IPRATROPIUM 0.5MG/ALBUTEROL 2.5MG INH SOL UD 3ML (DUONEB)(J7620) NEB SCH ×4 (01:27→20:08)
[2016-03-25] MEDS: FLUTICASONE HFA 110 MCG 12 GM INHALER (FLOVENT) INH SCH ×3 (01:27→20:08)
[2016-03-25 05:40] LABS: BASO % 0.8 % (0.0-1.0); EOS # 0.2 K/mm3 (0.0-0.50); EOS % 3.5 % (0.0-3.0); LARGE UNSTAINED CELL # 0.1 K/mm3 (0.0-0.4); LYMPH # 0.7 K/mm3 (1.5-4.5); LYMPH % 10.9 % (24.0-44.0); MEAN CORPUSCULAR HEMOGLOBIN 32.2 pg (27.0-33.0); MEAN CORPUSCULAR HGB CONC 33.3 g/dl (32.0-36.5); MEAN CORPUSCULAR VOLUME 96.6 fl (80.0-96.0); MONO # 0.4 K/mm3 (0.0-0.8); MONO % 6.7 % (0.0-5.0); NEUTROPHILS % 76.1 % (36.0-66.0); PLATELET COUNT, AUTOMATED 217 k/mm3 (150-450); RED CELL DISTRIBUTION WIDTH 14.5 % (11.5-14.5); WHITE BLOOD COUNT 6.6 K/mm3 (4.0-10.0)
[2016-03-25 05:42] LABS: RETIC HEMOGLOBIN CONTENT CHr 33.1 PG (24-36); RETICULOCYTE % ADVIA2120 1.5 % (0.5-1.5)
[2016-03-25 06:02] LABS: ALBUMIN 3.7 GM/DL (3.2-5.2); CALCIUM LEVEL 9.2 MG/DL (8.5-10.1); CREATININE FOR GFR 6.63 MG/DL (0.70-1.30); GLOMERULAR FILTRATION RATE 9.2 (>56); PHOSPHORUS LEVEL 6.1 MG/DL (2.5-4.9)
[2016-03-25 06:05] LABS: POTASSIUM SERUM 5.8 MEQ/L (3.5-5.1)
[2016-03-25 06:17] LABS: PERCENT SATURATION 58.4 % (19.7-37.4)
[2016-03-25] MEDS: HEPARIN SOD (PORCINE) 5000 UNITS/ML VIAL SC SCH ×3 (06:27→21:12)
[2016-03-25] MEDS: METOPROLOL TART 50 MG TAB PO SCH ×2 (06:29→21:12)
[2016-03-25] MEDS: CALCIUM ACETATE 667 MG GELCAP PO SCH ×3 (06:30→17:59)
[2016-03-25] MEDS: LANTHANUM CARBONATE 500 MG CHEW TABLET PO SCH ×3 (06:31→18:00)
[2016-03-25] MEDS: ATORVASTATIN 20 MG TAB PO SCH (08:25)
[2016-03-25] MEDS: NICOTINE 14 MG/24 HR TRANSDERMAL TD SCH (08:25)
[2016-03-25] MEDS: HumaLOG INSULIN (NovoLOG) PER UNIT SC SCH ×3 (08:25→17:59)
[2016-03-25] MEDS: CINACALCET 30 MG TAB (SENSIPAR) PO SCH (08:25)
[2016-03-25] MEDS: ISOSORBIDE MON. (IMDUR) 60 MG XR TAB PO SCH (08:26)
[2016-03-25] MEDS: ASPIRIN 325 MG TAB PO SCH (08:26)
[2016-03-25] MEDS: SENOKOT S TAB PO SCH ×2 (08:26→21:13)
[2016-03-25] MEDS: CLOPIDOGREL 75 MG TAB PO SCH (08:26)
[2016-03-25] MEDS: OMEPRAZOLE 20 MG CAP PO SCH (08:26)
[2016-03-25] MEDS: amLODIPine 5 MG TAB PO SCH (08:27)
[2016-03-25] MEDS ORDERED: predniSONE 20 MG TAB PO SCH (09:00)
[2016-03-25] MEDS ORDERED: LIDOCAINE 1% SDV 5 ML VIAL SQ ONE (12:00)
[2016-03-25] MEDS ORDERED: HEPARIN 1,000 UNITS/ML 10ML VIAL (FOR RADIOLOGY& DIALYSIS ONLY) IV ONE (12:00)
--- NOTE | 2016-03-25 13:45 | CR.PDOC ---
[facility] Consultation Consultation DATE OF ADMISSION: 03/24/2016 DATE OF CONSULTATION: 03/25/2016 REQUESTING PROVIDER: Dr. Josefa Selby Consulting Physician: Dr Betty Smith MD REASON FOR CONSULTATION/CHIEF COMPLAINT: Fluid overload, dialysis patient HISTORY OF PRESENT ILLNESS: Mr. Rivera is a 55-year-old male with past medical history of end-stage renal disease on hemodialysis, systolic heart failure, coronary artery disease status post CABG, paroxysmal atrial fibrillation, peripheral vascular disease, diabetes, pulmonary hypertension, COPD and GERD who presented to the emergency department with complaints of progressive dyspnea. Patient reported that he had been dyspneic all day yesterday. He also admitted to chest pain, paroxysmal nocturnal dyspnea, weight gain, increased lower extremity edema and cough. It was thought that patient was fluid overloaded and he received IV Lasix. Patient was seen this morning at bedside. He states that his shortness of breath is improved and chest pain is also improved. He denies any fever, chills, palpitations, nausea, vomiting, diarrhea , abdominal pain, headache, dizziness, bleeding, rash. Nephrology consult was requested as he is a hemodialysis patient and will need maintenance hemodialysis for correcting his volume status. PAST MEDICAL HISTORY: 1. End-stage renal disease on hemodialysis Thursday, , Thursday. 2. Systolic heart failure (CHF), EF of 30-35%, declined AICD. 3. Paroxysmal atrial fibrillation. 4. Chronic obstructive pulmonary disease 5. Type 2 diabetes. 6. CAD status post CABG. 7. Peripheral vascular disease 8. Pulmonary hypertension 9. Peripheral neuropathy. 10. Gastroesophageal reflux disease 11. Tobacco abuse. PAST SURGICAL HISTORY: 1. CABG, angioplasty and coronary stents. 2. Left arteriovenous (AV) fistula placement. 3. Appendectomy. 4. Right great toe amputation. 5. Carotid angioplasty. ALLERGIES: No known drug allergies. HOME MEDICATIONS: Please see below. FAMILY HISTORY: No known renal disease. Father had CAD and CHF. Mother had diabetes and COPD. Sister had lung cancer SOCIAL HISTORY: Patient reports that he quit smoking 3 weeks ago. Used to smoke several packs packs a day for 40 years. Niacin any alcohol use or illicit drugs. 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 REVIEW OF SYSTEMS: CONSTITUTIONAL: No fevers, chills or night sweats. Positive for weight gain. No fatigue. HEENT: Denies headaches, lightheadedness, dizziness, acute changes to vision or hearing. CARDIOVASCULAR: Positive for shortness of breath with exertion. Chest pain is improved. Positive for lower extremity edema. PULMONARY: As if her cough or shortness of breath. No hemoptysis. GASTROINTESTINAL: Denies nausea, vomiting, abdominal pain, diarrhea, hematochezia or melena. GENITOURINARY: No range in urinary frequency. No dysuria or hematuria. MUSCULOSKELETAL: No unusual muscle or joint pains. ENDOCRINE: Positive for diabetes. LYMPHATICS: No lumps, bumps, or swelling anywhere in neck, groin, or axilla. HEMATOLOGY: No excessive bleeding or bruising. NEUROLOGICAL: No syncope. No history of CVA. No gait disturbance. PHYSICAL EXAMINATION: Vital Signs Date Time Temp Pulse Resp B/P Pulse Ox O2 Delivery O2 Flow Rate FiO2 03/25/16 08:27 73 03/25/16 08:26 142/72 03/25/16 08:00 97.3 18 94 Nasal Cannula 2.0 I&O- Last 24 Hours up to 6 AM 03/25/16 06:00 Intake Total 0 ml Output Total 200 ml Balance -200 ml GENERAL: Patient is lying in bed comfortably. In no acute distress. HEENT: Normocephalic, atraumatic. Extraocular movement intact. Pupils are round and reactive to light. No scleral icterus. Moist mucosa. NECK: Supple. No thyromegaly. Jugular venous pulsations are at the angle of the jaw. HEART: Normal S1, S2. Regular rate and rhythm. LUNGS: Positive for rhonchi and expiratory wheezing. ABDOMEN: Soft. Nontender, nondistended. Bowel sounds are present. No rebound, guarding or rigidity. EXTREMITIES: +1 lower extremity edema. No cyanosis. Positive pedal pulses bilaterally. SKIN: Warm and dry. Good skin turgor. No rashes noted. NEUROLOGIC: No focal deficits. Cranial nerves II through XII are grossly intact. Moving all extremities. LABORATORY DATA: 03/25/16 05:22 Red Blood Count 3.34 L, Mean Corpuscular Volume 96.6 H, Mean Corpuscular Hemoglobin 32.2, Mean Corpuscular Hemoglobin Concent 33.3, Red Cell Distribution Width 14.5, Anion Gap 11, Calcium Level 9.2, Glomerular Filtration Rate 9.2L, Ferritin 3091H, Hemoglobin A1c 4.6, Iron Level 122, Percent Reticulocyte Count 1.50, Phosphorus Level 6.1H, Reticulocyte Hgb Content (CHr) 33.1, Total Iron Binding Capacity 209L, Transferrin % Saturation 58.4H, Troponin I 0.07 MICROBIOLOGY: Influenza negative. IMAGING: Chest x-ray on 03/24 revealed CHF with Misha B-lines, fissural thickening, vascular cephalization and cardiomegaly. No free pleural effusion seen. CT of the chest showed no evidence of pulmonary embolism, small left pleural effusion. Vascular ultrasound showed no DVT in the lower extremities. IMPRESSION/PLAN: 1. Shortness of breath, likely secondary to mild volume overload and COPD. Patient received a dose of Lasix yesterday. He is being dialyzed today. He does not appear to be significantly volume overloaded and we will continue to correct his volume status with hemodialysis. Patient had rhonchi and wheezing on physical examination, therefore, patient will be initiated on prednisone 40 mg daily for about 5 days. 2. End-stage renal disease. Patient receives hemodialysis on Thursday, , and Saturdays. This is his normal dialysis schedule and we will continue with such. 3. Hyperkalemia. Patient has a potassium of 5.8. This should be corrected with hemodialysis. Cozaar was held on admission. 4. Hyponatremia. Sodium currently 126. He denies any symptoms. He he will be dialyzed with a higher sodium bath. Continue to monitor electrolytes. He is not on his home dose of Lasix. 5. Systolic heart failure. Ejection fraction in July 2015 was 30-35%. He has apparently declined AICD placement. Some diuretic will need to be resumed once sodium is stable to avoid decompensation. 6. COPD. Continue with albuterol breathing treatments scheduled and as needed. He has been initiated on prednisone 40 mg daily. 7. Hyperphosphatemia. He is being dialyzed today. Continue with PhosLo and Fosrenol. 8. Anemia in end-stage renal disease. Hemoglobin is currently stable. 9. Hypertension. Blood pressure stable. Patient is on Norvasc, Imdur, Lopressor , and minoxidil. His Cozaar was held on admission. 10. Secondary hyperparathyroidism. Continue Sensipar. 11. Diabetes. Controlled with a hemoglobin A1c of 4.6 12. Paroxysmal atrial fibrillation. Unclear if patient is on chronic anticoagulation. 13. Coronary artery disease and peripheral vascular disease. Continue with aspirin, Plavix, statin and beta lisette. Thank you for the consultation and allowing us participate in the care of Mr. Rivera. We will continue to follow along with you. Allergies Coded Allergies: No Known Drug Allergy (Verified Allergy, Unknown, 06/09/12) TAPE (Unverified Allergy, Unknown, 07/10/15) Home Medications Scheduled (Lidocaine/Prilocaine 2.5-2.5 %) 1 Cre Cre 1 DOSE EXT 1XWK (Reported) APPLIES TO ACCESS SITE ON ARM, ONE HOUR BEFORE DIALYSIS ON TUESDAYS Amlodipine Besylate (Amlodipine Besylate) 5 Mg Tab 5 MG PO DAILY (Reported) Aspirin (Aspirin) 325 Mg Tab 325 MG PO DAILY (Reported) Atorvastatin Calcium (Atorvastatin Calcium) 40 Mg Tab 40 MG PO DAILY (Reported ) Calcium Acetate (Calcium Acetate) 667 Mg Cap 2,668 MG PO WM (Reported) Cinacalcet Hydrochloride (Sensipar) 30 Mg Tab 30 MG PO DAILY (Reported) Clopidogrel Bisulfate (Clopidogrel) 75 Mg Tab 75 MG PO DAILY (Reported) Fluticasone Propionate (Flovent Hfa 110 MCG) 120 Puff/12 Gm Aero 2 PUFF INH BID (Reported) Furosemide (Furosemide) 20 Mg Tab 80 MG PO DAILY (Reported) Insulin Detemir (Levemir) 1 Units/0.01 Ml Susp 12 UNITS SC DAILY (Reported) Insulin Human Lispro (Humalog) 1 Units/0.01 Ml Inj 1 DOSE SC AC (Reported) Isosorbide Mononitrate (Isosorbide Mononitrate ER) 60 Mg Tab 60 MG PO DAILY ( Reported) Lanthanum Carbonate (Fosrenol) 1,000 Mg Chw 1,000 MG PO WM (Reported) Losartan Potassium (Losartan Potassium) 100 Mg Tab 100 MG PO DAILY (Reported) Metoprolol Tartrate (Metoprolol Tartrate) 50 Mg Tab 50 MG PO BID (Reported) Minoxidil (Minoxidil) 2.5 Mg Tab 5 MG PO BID (Reported) Mentor 3 Polyunsat Fatty Acids (Mentor 3 1000 mg) 1 Cap Cap 1 CAP PO BID ( Reported) Omeprazole (Omeprazole) 40 Mg Cap 40 MG PO DAILY (Reported) Prednisone (Prednisone) 20 Mg Tab #8 40 MG PO DAILY Scheduled PRN Albuterol Sulfate (Proair Hfa) 108 Mcg/Act Aer 2 PUFF INH Q4H PRN PRN SHORTNESS OF BREATH (Reported) GME ATTESTATION GME ATTESTATION My preceptor for this patient encounter was physically present in the building during the encounter and was fully available. As needed, all aspects of the patient interview, examination, medical decision making process, and medical care plan development were reviewed and approved by the preceptor. Preceptor is aware and concurs with the plan as stated in the body of this note and will attest to such by his/her cosignature. ATTENDING NOTE Nephrology Attending: Pt was seen and examined today AM during hemodialysis. UF goal of 4-5 Kg for fluid overload. Prednisone for 5 days for h/o COPD. I agree with above assessment and recommendations. MADELAINE WEBBER DO Mar 25, 2016 13:45 BETTY SMITH MD Mar 25, 2016 21:42 BETTY SMITH MD Mar 25, 2016 21:42
[2016-03-25] MEDS: predniSONE 20 MG TAB PO SCH (14:31)
--- NOTE | 2016-03-25 20:21 | IPN ---
DATE: 03/25/2016 Patient admitted overnight. Patient comfortable and in no acute distress. Reported respiration much improved. Denies any fevers, chills, chest pain, pressure or discomfort. VITAL SIGNS: Temperature 96, pulse 77, respiration 20, blood pressure 142/68, pulse ox 97% on room air. LABORATORY DATA: WBC 6.6, H H 10.8/32.2, platelets 217. CHEMISTRY: Sodium 126, potassium 5.8, chloride 90, bicarbonate 25, BUN 32, creatinine 6.6, troponin negative. PHYSICAL EXAMINATION: GENERAL: Patient comfortable in no acute distress. Currently undergoing dialysis. HEENT: Normocephalic, atraumatic. Moist mucous membranes. NECK: Supple. PULMONARY: Diminished breath sounds bilateral base. Occasional crackles. No wheeze. CARDIAC: Regular rate and rhythm. Normal S1, S2. ABDOMEN: Soft, non-tender, non-distended. Positive bowel sounds. Obese EXTREMITIES: Bilateral 2+ lower extremity edema. ASSESSMENT AND PLAN: This is a 55-year-old male patient with underlying medical history of systolic congestive heart failure with ejection fraction 35%, end-stage renal dialysis undergoing hemodialysis, paroxysmal atrial fibrillation, chronic obstructive pulmonary disease, not on oxygen, type 2 diabetes, coronary artery disease with coronary artery bypass graft, peripheral vascular disease, pulmonary hypertension, peripheral neuropathy, gastroesophageal reflux disease, history of poor compliance, smoking, admitted for acute congestive heart failure exacerbation. PROBLEM: 1. Acute congestive heart failure exacerbation with systolic diastolic. Baseline EF of 30-35%. Nephrology consulted for hemodialysis. Troponin appreciated. Electrocardiogram , telemetry monitoring. Declined AICD. 2. End-stage renal disease. Nephrology consulted. Continue dialysis. 3. Hyponatremia likely secondary to congestive heart failure. Nephrology consulted. Continue to follow. Will be undergoing dialysis. 4. Hyperkalemia. Will undergo dialysis today. We will continue to follow. 5. Hypertension. Continue blood pressure medications. 6. Anemia. Anemia work up was sent. Monitor H H. 7. Type 2 diabetes. Insulin is ordered. Follow up fingersticks. 8. Coronary artery disease. Continue aspirin, Plavix, statin and beta blockers. 9. Paroxysmal atrial fibrillation. Sinus rhythm. Patient reported to be on Coumadin, however Coumadin is not on his medication list. We will discuss with patient's cardiology Dr. Coelho for further recommendation. Continue beta blockers. Telemetry monitoring. 10. Smoking. Continue nicotine patch. Counseling provided. 11. Deep vein thrombosis prophylaxis. Heparin subcutaneously. DISPOSITION PLANNING: For hypertension continue Norvasc, metoprolol, Imdur, minoxidil. Continue to follow. Chronic obstructive pulmonary disease patient not having any significant wheeze. Nebulizer treatment as needed. DISPOSITION: Depending clinical improvement. Appreciate nephrology assistance.
[2016-03-25] MEDS ORDERED: HumaLOG INSULIN (NovoLOG) PER UNIT SC SCH (21:00)
[2016-03-26] MEDS: IPRATROPIUM 0.5MG/ALBUTEROL 2.5MG INH SOL UD 3ML (DUONEB)(J7620) NEB SCH ×2 (01:21→07:23)
[2016-03-26 04:29] VITALS: BP 142/58
[2016-03-26] MEDS: HEPARIN SOD (PORCINE) 5000 UNITS/ML VIAL SC SCH (05:29)
[2016-03-26 06:20] LABS: BASO % 0.6 % (0.0-1.0); EOS % 0.2 % (0.0-3.0); LARGE UNSTAINED CELL % 0.8 % (0.0-4.0); LYMPH # 0.4 K/mm3 (1.5-4.5); LYMPH % 7.2 % (24.0-44.0); MEAN CORPUSCULAR HEMOGLOBIN 31.6 pg (27.0-33.0); MEAN CORPUSCULAR VOLUME 98.8 fl (80.0-96.0); MONO # 0.2 K/mm3 (0.0-0.8); MONO % 4.4 % (0.0-5.0); NEUTROPHILS % 86.8 % (36.0-66.0); PLATELET COUNT, AUTOMATED 215 k/mm3 (150-450); RED CELL DISTRIBUTION WIDTH 15.9 % (11.5-14.5); WHITE BLOOD COUNT 4.6 K/mm3 (4.0-10.0)
[2016-03-26 06:34] LABS: ALBUMIN 3.5 GM/DL (3.2-5.2); CALCIUM LEVEL 9.6 MG/DL (8.5-10.1); CREATININE FOR GFR 4.6 MG/DL (0.70-1.30); GLOMERULAR FILTRATION RATE 14.1 (>56); POTASSIUM SERUM 4.7 MEQ/L (3.5-5.1)
[2016-03-26] MEDS: FLUTICASONE HFA 110 MCG 12 GM INHALER (FLOVENT) INH SCH (07:24)
--- NOTE | 2016-03-26 07:48 | ECGEPIP ---
Stationary ECG Study [facility] - ED Test Date: 2016-03-24 Pat Name: JOHNNY GILES Department: Room: - Gender: M Manager Intern: loulou : 1960 Requested By: SEBASTIÁN Jimenez Order Number: [id number] Reading MD: Elissa Medellin Measurements Intervals [place] Rate: 85 P: -13 OR: 139 QRS: 209 QRSD: 162 T: 43 QT: 391 QTc: 467 Interpretive Statements SINUS RHYTHM POSSIBLE LEFT ATRIAL ENLARGEMENT INDETERMINATE AXIS RIGHT BUNDLE BRANCH BLOCK AND POSSIBLE RIGHT VENTRICULAR HYPERTROPHY ST DEPRESSION, CONSIDER SUBENDOCARDIAL INJURY SIMILAR 03/02/16 Electronically Signed On 03-26-2016 7:48:37 EST by Elissa Medellni
[2016-03-26 08:00] VITALS: BP 148/68
[2016-03-26] MEDS: SENOKOT S TAB PO SCH (08:12)
[2016-03-26] MEDS: ASPIRIN 325 MG TAB PO SCH (08:12)
[2016-03-26] MEDS: LANTHANUM CARBONATE 500 MG CHEW TABLET PO SCH (08:12)
[2016-03-26] MEDS: NICOTINE 14 MG/24 HR TRANSDERMAL TD SCH (08:12)
[2016-03-26] MEDS: OMEPRAZOLE 20 MG CAP PO SCH (08:12)
[2016-03-26] MEDS: predniSONE 20 MG TAB PO SCH (08:13)
[2016-03-26] MEDS: MINOXIDIL 2.5 MG TAB PO SCH (08:13)
[2016-03-26] MEDS: CALCIUM ACETATE 667 MG GELCAP PO SCH (08:13)
[2016-03-26] MEDS: METOPROLOL TART 50 MG TAB PO SCH (08:14)
[2016-03-26] MEDS: HumaLOG INSULIN (NovoLOG) PER UNIT SC SCH (08:14)
[2016-03-26] MEDS: ISOSORBIDE MON. (IMDUR) 60 MG XR TAB PO SCH (08:14)
[2016-03-26] MEDS: CINACALCET 30 MG TAB (SENSIPAR) PO SCH (08:15)
[2016-03-26] MEDS: CLOPIDOGREL 75 MG TAB PO SCH (08:15)
[2016-03-26 08:16] VITALS: BP 142/58
[2016-03-26] MEDS: ATORVASTATIN 20 MG TAB PO SCH (08:16)
[2016-03-26] MEDS: amLODIPine 5 MG TAB PO SCH (08:16)
[2016-03-26] MEDS ORDERED: PRED20TA PO (10:02)
--- NOTE | 2016-03-26 11:12 | IPNPDOC ---
Date/Time Seen The patient was seen on 03/26/16 at 10:56. Progress Note DATE OF ENCOUNTER: 03/26/2016 SUBJECTIVE: Mr. Rivera was seen this morning at bedside. No acute overnight issues. He had dialysis yesterday where 4500 and fluid was removed. He tolerated it well. Sodium is improved and potassium has normalized. He reports that his breathing is much improved. He states that he feels well and would like to go home. Review of systems is negative for chest pain, chest pressure, increased shortness of breath, cough, sputum production, nausea, vomiting, abdominal pain , diarrhea, fever, chills, headache, dizziness. Vitals are stable. OBJECTIVE: Vital Signs Date Time Temp Pulse Resp B/P Pulse Ox O2 Delivery O2 Flow Rate FiO2 03/26/16 08:16 78 142/58 03/26/16 08:00 95.7 18 92 Room Air I&O- Last 24 Hours up to 6 AM 03/26/16 05:59 Intake Total 1170 ml Output Total 4500 ml Balance -3330 ml GENERAL: Patient is sitting up in chair comfortably. In no acute distress. HEENT: Normocephalic, atraumatic. Extraocular movement intact. Moist mucosa. NECK: Supple. Jugular venous pulsations are not significantly elevated. HEART: Normal S1, S2. Regular rate and rhythm. Positive for systolic ejection murmur. LUNGS: Positive for faint crackles. No rhonchi or wheezing appreciated. ABDOMEN: Soft. Nontender, nondistended. Bowel sounds are present. No rebound, guarding or rigidity. EXTREMITIES: Mild lower extremity edema. No cyanosis. Positive pedal pulses bilaterally. SKIN: Warm and dry. Good skin turgor. No rashes noted. NEUROLOGIC: No focal deficits. Cranial nerves II through XII are grossly intact. Moving all extremities. LABORATORY DATA: 03/26/16 05:35 Red Blood Count 3.02 L, Mean Corpuscular Volume 98.8 H, Mean Corpuscular Hemoglobin 31.6, Mean Corpuscular Hemoglobin Concent 32.0, Red Cell Distribution Width 15.9 H, Albumin 3.5, Calcium Level 9.6, Glomerular Filtration Rate 14.1L, Large Unclassified Cells # 0.0, Large Unclassified Cells % 0.8, Phosphorus Level 4.0 MICROBIOLOGY: Influenza negative. IMAGING: Chest x-ray on 03/24 revealed CHF with Misha B-lines, fissural thickening, vascular cephalization and cardiomegaly. No free pleural effusion seen. CT of the chest showed no evidence of pulmonary embolism, small left pleural effusion. Vascular ultrasound showed no DVT in the lower extremities. IMPRESSION/PLAN: 1. Shortness of breath, secondary to mild volume overload and COPD. Patient was hemodialyzed yesterday were 4500 mL was removed. Volume status appears to be more stable. He is also on prednisone 40 mg daily and lungs sound much better with the combination of treatments. 2. End-stage renal disease. Patient receives hemodialysis on Thursday, , and Saturdays. Next hemodialysis will be tomorrow 03/27. 3. Hyperkalemia, resolved with hemodialysis. 4. Hyponatremia, improved. Sodium currently 130. Patient is asymptomatic. Continue to monitor electrolytes. 5. Systolic heart failure. Ejection fraction in July 2015 was 30-35%. We'll continue to correct volume status with hemodialysis. 6. COPD. Continue with albuterol breathing treatments as needed. Prednisone 40 mg daily for 5 days. 7. Hyperphosphatemia, resolved after dialysis. Continue home regimen of PhosLo and Fosrenol. 8. Anemia in end-stage renal disease. Hemoglobin is currently stable. 9. Hypertension. Blood pressure stable. Continue home blood pressure medications. 10. Secondary hyperparathyroidism. Continue Sensipar. 11. Diabetes. Controlled with a hemoglobin A1c of 4.6 DISPOSITION: Patient reports that he is feeling well and wants to go home. He may be discharged to continue with his dialysis schedule. Follow-up with nephrology outpatient. GME ATTESTATION GME ATTESTATION My preceptor for this patient encounter was physically present in the building during the encounter and was fully available. As needed, all aspects of the patient interview, examination, medical decision making process, and medical care plan development were reviewed and approved by the preceptor. Preceptor is aware and concurs with the plan as stated in the body of this note and will attest to such by his/her cosignature. ATTENDING NOTE Nephrology Attending: Pt was examined this AM with the resident. I agree with assessment and plan. OK to discharge home from nephrology standpoint. MADELAINE WEBBER DO Mar 26, 2016 11:11 BETTY SMITH MD Mar 26, 2016 18:15
--- NOTE | 2016-03-26 18:56 | DSES ---
DATE OF ADMISSION: 03/24/2016 DATE OF DISCHARGE: 03/26/2016 PRIMARY CARE PROVIDER: Dr. Tonny Cartwright. CARDIOLOGY: Dr. Coelho. NEPHROLOGY: Dr. Oconnell. FINAL DIAGNOSES: 1. Acute congestive heart failure exacerbation secondary to systolic dysfunction. Baseline ejection fraction 30% to 35%. 2. End-stage renal disease. 3. Fluid overload. 4. Hyponatremia. 5. Hyperkalemia. 6. Hypertension. 7. Anemia. 8. Type 2 diabetes. 9. Coronary arterial disease. 10. Paroxysmal atrial fibrillation. 11. Smoking. 12. Poor compliance. HISTORY OF PRESENT ILLNESS: This is a 55-year-old male patient with underlying medical history of end-stage renal disease on hemodialysis, systolic heart failure with ejection fraction 30% to 35%, coronary arterial disease status post coronary artery bypass graft (CABG), who presented to the emergency room with worsening shortness of breath. Episode started the night prior. The patient was lying in bed watching television, ignored her symptoms until the afternoon, with persistent symptoms. The patient also reported dyspnea on exertion. Very poor historian. Also reported weight gain. The patient discussed with other provider had determined that the patient has also been poorly compliant to fluid restriction and dietary adherence. Denies any fevers, chills, chest pain, pressure or discomfort. HOSPITAL COURSE: The patient was admitted to the hospital. Electrolytes were followed. Nephrology consulted. Status post hemodialysis. Strict intake and output and daily weight. The patient's symptoms returned to baseline after hemodialysis. Electrolyte disturbances also corrected. Currently the patient reported back to baseline, ready for discharge for further care as outpatient. Case was discussed with nephrology, Dr. Zepeda, who is okay with the patient's discharge. A total of 4.5 liters of fluid was removed with dialysis session. VITAL SIGNS: Temperature 95.7, pulse 78, respirations 18, blood pressure 142/58. Pulse oximetry 92% on room air. LABORATORY DATA: WBC is 4.6, hemoglobin and hematocrit 9.5 over 29.9, platelets 215. Chemistry: Sodium 130, potassium 4.7, chloride 93, bicarbonate 26, BUN 20, creatinine 4.6. DISCHARGE MEDICATIONS: - prednisone 40 mg by mouth for four more days - ProAir inhalation every four hours as needed - Norvasc 5 mg by mouth daily - aspirin 325 mg by mouth daily - Lipitor 40 mg by mouth daily - calcium acetate 2668 mg by mouth with meals - Sensipar 31 grams by mouth daily - Plavix 75 mg by mouth daily - Flovent two puffs inhalation twice a day - Lasix 80 mg by mouth daily - Levemir insulin 12 units subcutaneously daily - Humalog mealtime premeal via scale - isosorbide mononitrate 60 mg by mouth daily - Fosrenol 1000 mg by mouth with meals - losartan 100 mg by mouth daily - metoprolol 50 mg by mouth twice a day - minoxidil 5 mg by mouth twice a day - omega 3 fatty acid one capsule by mouth twice a day - omeprazole 40 mg by mouth daily DISCHARGE INSTRUCTIONS: The patient is instructed to followup with his primary care provider in seven days, and to further determine what the appropriate anticoagulation is for the patient's atrial fibrillation, and followup with nephrology for further dialysis and treatment, daily weight, fluid restriction 1800 mL per day. Return to the hospital if symptoms worsen.
--- NOTE | 2016-03-26 23:55 | EDDOCDS ---
Physician Documentation [facility] Name: Antoino Rivera Age: 55 yrs Sex: Male : 1960 Arrival Date: 03/24/2016 Time: 16:51 Bed 21 Private MD: Disposition: 03/24/16 20:51 Hospitalization ordered by Chikis Mejia for Inpatient Admission. Preliminary diagnosis are Acute pulmonary edema, Hyperkalemia - Hyponatremia. - Bed requested for PCU. - Status is Inpatient Admission. jf3 - Condition is Stable. - Problem is new. - Symptoms are unchanged. Historical: - Allergies: Tape; mushrooms; - Home Meds: 1. amlodipine 5 mg Oral tab 1 tab once daily (Last dose: 03/24/2016) 2. aspirin 325 mg Oral tab 1 tab once daily (Last dose: 03/24/2016) 3. atorvastatin 40 mg oral tab 1 tab once daily (Last dose: 03/24/2016) 4. calcium acetate 667 mg oral cap 4 caps 3 times per day (Last dose: 03/24/2016) 5. clopidogrel 75 mg oral tab 1 tab once daily (Last dose: 03/24/2016) 6. furosemide 20 mg Oral tab 4 tab once daily (Last dose: 03/24/2016) 7. Humalog Pen sliding scale Sub-Q three times a day Last dose 8 units. states uses once a day because doesn't have much left. (Last dose: 03/24/2016 10:00) 8. isosorbide mononitrate 60 mg Oral Tb24 1 tab once daily (Last dose: 03/24/2016) 9. Levemir FlexTouch 100 unit/mL (3 mL) subcutaneous inpn 12 unit daily (Last dose: 03/24/2016) 10. Lopressor 50 mg Oral tab 2 times per day (Last dose: 03/24/2016) 11. losartan 100 mg oral tab 1 tab once daily (Last dose: 03/24/2016) 12. minoxidil 2.5 mg Oral tab 2 tabs 2 times per day (Last dose: 03/24/2016) 13. [place] 3 Fish Oil 900-1,400 mg oral cpDR twice a day 14. omeprazole 40 mg Oral cpDR 1 cap once daily (Last dose: 03/24/2016) 15. Sensipar 30 mg oral tab 1 tab once daily (Last dose: 03/24/2016) 16. Vitamin D Oral 2000 unit daily 17. Vitamin D3 4,000 unit oral cap daily - PMHx: Asthma; CHF; COPD; Diabetes - IDDM: controlled; Heart Disease; Renal Failure with Dialysis; Stroke; GERD; - PSHx: Cardiac stents; Open heart surgery; Appendectomy; Tonsillectomy; Adenoidectomy; - Social history: Smoking status: Patient uses tobacco products, current every day smoker. No barriers to communication noted, The patient speaks fluent Sinhala. - Family history: Not pertinent. - : The pt / caregiver states he / she is on anticoagulants: Plavix. Home medication list is obtained from the patient. - Exposure Risk Screening:: None identified. Vital Signs: 03/24 17:00 BP 123 / 85 (auto/); jf3 17:02 Pulse 84 MON; Pulse Ox 99% ; jf3 17:03 BP 123 / 85; Pulse 86; Resp 18; Temp 99.2(TE); Pulse Ox 98% on R/A; Weight 99.79 kg / ct3 220 lbs (R); Height 6 ft. 0 in. (182.88 cm) (R); Pain 7/10; 17:15 BP 164 / 77 (auto/); jf3 17:15 Pulse 84 MON; Pulse Ox 96% ; jf3 17:30 BP 166 / 91 (auto/); jf3 17:30 Pulse 86 MON; Pulse Ox 95% ; jf3 17:45 BP 160 / 75 (auto/); jf3 17:45 Pulse 84 MON; Pulse Ox 92% ; jf3 17:59 Pulse 82 MON; Pulse Ox 94% ; jf3 18:00 BP 149 / 68 (auto/); jf3 18:14 Pulse 86 MON; Pulse Ox 93% ; jf3 18:15 BP 191 / 84 (auto/); jf3 18:49 BP 203 / 95 (auto/); jf3 18:50 Pulse 82 MON; Pulse Ox 93% ; jf3 19:04 BP 197 / 100 (auto/); jf3 19:06 Pulse 82 MON; Pulse Ox 94% ; jf3 19:19 BP 194 / 94 (auto/); jf3 19:20 Pulse 84 MON; Pulse Ox 96% ; jf3 19:34 BP 183 / 75 (auto/); jf3 19:36 Pulse 82 MON; Pulse Ox 93% ; jf3 19:49 BP 173 / 82 (auto/); jf3 19:51 Pulse 82 MON; Pulse Ox 93% ; jf3 20:04 BP 194 / 88 (auto/); jf3 20:04 Pulse 82 MON; Pulse Ox 96% ; jf3 20:19 BP 173 / 79 (auto/); jf3 20:20 Pulse 82 MON; Pulse Ox 96% ; jf3 20:34 BP 173 / 94 (auto/); jf3 20:35 Pulse 82 MON; Pulse Ox 96% ; jf3 20:49 BP 197 / 88 (auto/); jf3 20:49 Pulse 92 MON; Pulse Ox 94% ; jf3 20:50 Pulse 88 MON; Pulse Ox 94% ; jf3 21:04 BP 183 / 79 (auto/); jf3 21:19 BP 175 / 76 (auto/); jf3 21:19 Pulse 84; Pulse Ox 92% ; jf3 21:34 BP 154 / 66 (auto/); jf3 21:35 Pulse 81; Pulse Ox 93% ; jf3 21:49 BP 187 / 81 (auto/); jf3 21:49 Pulse 80; Pulse Ox 94% ; jf3 22:04 BP 178 / 82 (auto/); jf3 22:05 Pulse 84; Pulse Ox 93% ; jf3 22:33 BP 188 / 81; Pulse 87; Resp 20; Temp 96.8(O); Pulse Ox 97% on R/A; Pain 0/10; jf3 17:03 Body Mass Index 29.84 (99.79 kg, 182.88 cm) ct3 MDM: 17:17 ECG WITH READING ER PHYS+CARDIAG ordered. EDMS 17:24 Entry Level Receptionist/Pulse Ox/q 30 min VS ordered. br1 17:24 IV Saline Lock ordered. br1 17:24 Rhythm Strip to chart ordered. br1 17:24 Undress patient appropriately for examination ordered. br1 17:25 Basic Metabolic Profile Ordered. EDMS 17:25 CBC with Diff Ordered. EDMS 17:25 Cardiac Injury Profile Ordered. EDMS 17:25 Troponin Ordered. EDMS 17:26 Chest, 1 View Ordered. EDMS 18:22 BNP Ordered. EDMS 18:22 D-Dimer Quant Ordered. EDMS 18:23 -Influenza A&B Rapid Antigen - Nose Ordered. EDMS 18:50 Financial registration complete. zo 18:50 [facility] Payment Agreement was scanned into [employer] and attached to record. zo 19:20 CBC with Diff Reviewed. br1 19:20 D-Dimer Quant Reviewed. br1 19:20 Chest, 1 View Reviewed. br1 19:22 Ultrasound Bilateral LE R/O DVT Ordered. EDMS 19:22 -Influenza A&B Rapid Antigen - Nose Reviewed. br1 20:28 Basic Metabolic Profile Reviewed. br1 20:28 BNP Reviewed. br1 20:28 Cardiac Injury Profile Reviewed. br1 20:28 Troponin Reviewed. br1 20:37 Chest, 1 View Reviewed. br1 20:42 BED REQUEST+ADM ordered. EDMS 20:47 Furosemide 40 mg IVP once ordered. br1 20:50 CT Chest Angio R/O PE Ordered. EDMS 21:59 CBC WITH DIFFERENTIAL Ordered. EDMS 22:00 Admission / Observation Status ordered. EDMS 22:00 CONSISTENT CARBOHYDRATES ordered. EDMS 22:14 RENAL PROFILE Ordered. EDMS 22:21 SODIUM,RANDOM URINE Ordered. EDMS 22:26 TROPONIN Ordered. EDMS 22:26 TROPONIN Ordered. EDMS 03/25 10:22 T-Sheet-- Draft Copy was scanned into [employer] and attached to record. gb 10:22 ECG/EKG was scanned into [employer] and attached to record. gb 10:23 Trend VS was scanned into [employer] and attached to record. gb 10:23 Radiology Report was scanned into [employer] and attached to record. gb Administered Medications: 03/24 21:08 Drug: Furosemide 40 mg [furosemide 10 mg/mL injection solution (4 mL)] Route: IVP; jf3 Site: right forearm; 22:54 Follow up: Response: No Adverse Reaction jf3 Signatures: Dispatcher [employer] EDMS Massiel Enriquez, Reg Reg gb Trae Duran, Set Up Technician Unit ml3 Edel Lantigua Brian, MD MD br1 Zhang Arredondo,RADHA RN jf3 The chart was reviewed and I authenticate all verbal orders and agree with the evaluation and treatment provided.Corrections: (The following items were deleted from the chart) 22:17 21:59 BASIC METABOLIC PROFILE ordered. EDMS EDMS Attachments: 18:50 [facility] Payment Agreement zo 03/25 10:22 T-Sheet-- Draft Copy gb 10: ECG/EKG gb Chart Complete MTDD
--- NOTE | 2016-03-26 23:55 | EDDOCDS ---
Physician Documentation [facility] Name: Antonio Rivera Age: 55 yrs Sex: Male : 1960 Arrival Date: 03/24/2016 Time: 16:51 Bed 21 Private MD: Disposition: 03/24/16 20:51 Hospitalization ordered by Chikis Mejia for Inpatient Admission. Preliminary diagnosis are Acute pulmonary edema, Hyperkalemia - Hyponatremia. - Bed requested for PCU. - Status is Inpatient Admission. jf3 - Condition is Stable. - Problem is new. - Symptoms are unchanged. Historical: - Allergies: Tape; mushrooms; - Home Meds: 1. amlodipine 5 mg Oral tab 1 tab once daily (Last dose: 03/24/2016) 2. aspirin 325 mg Oral tab 1 tab once daily (Last dose: 03/24/2016) 3. atorvastatin 40 mg oral tab 1 tab once daily (Last dose: 03/24/2016) 4. calcium acetate 667 mg oral cap 4 caps 3 times per day (Last dose: 03/24/2016) 5. clopidogrel 75 mg oral tab 1 tab once daily (Last dose: 03/24/2016) 6. furosemide 20 mg Oral tab 4 tab once daily (Last dose: 03/24/2016) 7. Humalog Pen sliding scale Sub-Q three times a day Last dose 8 units. states uses once a day because doesn't have much left. (Last dose: 03/24/2016 10:00) 8. isosorbide mononitrate 60 mg Oral Tb24 1 tab once daily (Last dose: 03/24/2016) 9. Levemir FlexTouch 100 unit/mL (3 mL) subcutaneous inpn 12 unit daily (Last dose: 03/24/2016) 10. Lopressor 50 mg Oral tab 2 times per day (Last dose: 03/24/2016) 11. losartan 100 mg oral tab 1 tab once daily (Last dose: 03/24/2016) 12. minoxidil 2.5 mg Oral tab 2 tabs 2 times per day (Last dose: 03/24/2016) 13. [place] 3 Fish Oil 900-1,400 mg oral cpDR twice a day 14. omeprazole 40 mg Oral cpDR 1 cap once daily (Last dose: 03/24/2016) 15. Sensipar 30 mg oral tab 1 tab once daily (Last dose: 03/24/2016) 16. Vitamin D Oral 2000 unit daily 17. Vitamin D3 4,000 unit oral cap daily - PMHx: Asthma; CHF; COPD; Diabetes - IDDM: controlled; Heart Disease; Renal Failure with Dialysis; Stroke; GERD; - PSHx: Cardiac stents; Open heart surgery; Appendectomy; Tonsillectomy; Adenoidectomy; - Social history: Smoking status: Patient uses tobacco products, current every day smoker. No barriers to communication noted, The patient speaks fluent Syriac. - Family history: Not pertinent. - : The pt / caregiver states he / she is on anticoagulants: Plavix. Home medication list is obtained from the patient. - Exposure Risk Screening:: None identified. Vital Signs: 03/24 17:00 BP 123 / 85 (auto/); jf3 17:02 Pulse 84 MON; Pulse Ox 99% ; jf3 17:03 BP 123 / 85; Pulse 86; Resp 18; Temp 99.2(TE); Pulse Ox 98% on R/A; Weight 99.79 kg / ct3 220 lbs (R); Height 6 ft. 0 in. (182.88 cm) (R); Pain 7/10; 17:15 BP 164 / 77 (auto/); jf3 17:15 Pulse 84 MON; Pulse Ox 96% ; jf3 17:30 BP 166 / 91 (auto/); jf3 17:30 Pulse 86 MON; Pulse Ox 95% ; jf3 17:45 BP 160 / 75 (auto/); jf3 17:45 Pulse 84 MON; Pulse Ox 92% ; jf3 17:59 Pulse 82 MON; Pulse Ox 94% ; jf3 18:00 BP 149 / 68 (auto/); jf3 18:14 Pulse 86 MON; Pulse Ox 93% ; jf3 18:15 BP 191 / 84 (auto/); jf3 18:49 BP 203 / 95 (auto/); jf3 18:50 Pulse 82 MON; Pulse Ox 93% ; jf3 19:04 BP 197 / 100 (auto/); jf3 19:06 Pulse 82 MON; Pulse Ox 94% ; jf3 19:19 BP 194 / 94 (auto/); jf3 19:20 Pulse 84 MON; Pulse Ox 96% ; jf3 19:34 BP 183 / 75 (auto/); jf3 19:36 Pulse 82 MON; Pulse Ox 93% ; jf3 19:49 BP 173 / 82 (auto/); jf3 19:51 Pulse 82 MON; Pulse Ox 93% ; jf3 20:04 BP 194 / 88 (auto/); jf3 20:04 Pulse 82 MON; Pulse Ox 96% ; jf3 20:19 BP 173 / 79 (auto/); jf3 20:20 Pulse 82 MON; Pulse Ox 96% ; jf3 20:34 BP 173 / 94 (auto/); jf3 20:35 Pulse 82 MON; Pulse Ox 96% ; jf3 20:49 BP 197 / 88 (auto/); jf3 20:49 Pulse 92 MON; Pulse Ox 94% ; jf3 20:50 Pulse 88 MON; Pulse Ox 94% ; jf3 21:04 BP 183 / 79 (auto/); jf3 21:19 BP 175 / 76 (auto/); jf3 21:19 Pulse 84; Pulse Ox 92% ; jf3 21:34 BP 154 / 66 (auto/); jf3 21:35 Pulse 81; Pulse Ox 93% ; jf3 21:49 BP 187 / 81 (auto/); jf3 21:49 Pulse 80; Pulse Ox 94% ; jf3 22:04 BP 178 / 82 (auto/); jf3 22:05 Pulse 84; Pulse Ox 93% ; jf3 22:33 BP 188 / 81; Pulse 87; Resp 20; Temp 96.8(O); Pulse Ox 97% on R/A; Pain 0/10; jf3 17:03 Body Mass Index 29.84 (99.79 kg, 182.88 cm) ct3 MDM: 17:17 ECG WITH READING ER PHYS+CARDIAG ordered. EDMS 17:24 School Adjustment Counselor/Pulse Ox/q 30 min VS ordered. br1 17:24 IV Saline Lock ordered. br1 17:24 Rhythm Strip to chart ordered. br1 17:24 Undress patient appropriately for examination ordered. br1 17:25 Basic Metabolic Profile Ordered. EDMS 17:25 CBC with Diff Ordered. EDMS 17:25 Cardiac Injury Profile Ordered. EDMS 17:25 Troponin Ordered. EDMS 17:26 Chest, 1 View Ordered. EDMS 18:22 BNP Ordered. EDMS 18:22 D-Dimer Quant Ordered. EDMS 18:23 -Influenza A&B Rapid Antigen - Nose Ordered. EDMS 18:50 Financial registration complete. zo 18:50 [facility] Payment Agreement was scanned into [employer] and attached to record. zo 19:20 CBC with Diff Reviewed. br1 19:20 D-Dimer Quant Reviewed. br1 19:20 Chest, 1 View Reviewed. br1 19:22 Ultrasound Bilateral LE R/O DVT Ordered. EDMS 19:22 -Influenza A&B Rapid Antigen - Nose Reviewed. br1 20:28 Basic Metabolic Profile Reviewed. br1 20:28 BNP Reviewed. br1 20:28 Cardiac Injury Profile Reviewed. br1 20:28 Troponin Reviewed. br1 20:37 Chest, 1 View Reviewed. br1 20:42 BED REQUEST+ADM ordered. EDMS 20:47 Furosemide 40 mg IVP once ordered. br1 20:50 CT Chest Angio R/O PE Ordered. EDMS 21:59 CBC WITH DIFFERENTIAL Ordered. EDMS 22:00 Admission / Observation Status ordered. EDMS 22:00 CONSISTENT CARBOHYDRATES ordered. EDMS 22:14 RENAL PROFILE Ordered. EDMS 22:21 SODIUM,RANDOM URINE Ordered. EDMS 22:26 TROPONIN Ordered. EDMS 22:26 TROPONIN Ordered. EDMS 03/25 10:22 T-Sheet-- Draft Copy was scanned into [employer] and attached to record. gb 10:22 ECG/EKG was scanned into [employer] and attached to record. gb 10:23 Trend VS was scanned into [employer] and attached to record. gb 10:23 Radiology Report was scanned into [employer] and attached to record. gb Administered Medications: 03/24 21:08 Drug: Furosemide 40 mg [furosemide 10 mg/mL injection solution (4 mL)] Route: IVP; jf3 Site: right forearm; 22:54 Follow up: Response: No Adverse Reaction jf3 Signatures: Dispatcher [employer] EDMS Massiel Enriquez, Reg Reg gb Trae Duran, Outsole Rounder Unit ml3 Edel Lantigua Brian, MD MD br1 Zhang Arredondo,RADHA RN jf3 The chart was reviewed and I authenticate all verbal orders and agree with the evaluation and treatment provided.Corrections: (The following items were deleted from the chart) 22:17 21:59 BASIC METABOLIC PROFILE ordered. EDMS EDMS Attachments: 18:50 [facility] Payment Agreement zo 03/25 10:22 T-Sheet-- Draft Copy gb 10: ECG/EKG gb Chart Complete MTDD
--- NOTE | 2016-03-26 23:56 | EDDOCDS ---
Nurse's Notes [facility] Name: Antonio Rivera Age: 55 yrs Sex: Male : 1960 Arrival Date: 03/24/2016 Time: 16:51 Bed 21 Private MD: Diagnosis: Acute pulmonary edema;Hyperkalemia-Hyponatremia Presentation: 03/24 17:00 Presenting complaint: EMS states: CP w/ SOB started last night. worsening today, called jf3 EMS from home. Presenting complaint: Patient states: Pt states his chest hurts and he's: having a hell of a time breathing". States SOB started last night and CP started this morning. 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 Adult Sepsis Screening:. Adult Sepsis Screening: The patient does not have new or worsening altered mentation. Patient's respiratory rate is less than 22. Systolic blood pressure is greater than 100. Patient has a qSOFA score of 0- Negative Sepsis Screen. Suicide/Homicide risk assessment- the patient denies having any suicidal and/or homicidal ideations and does not present with any other emotional, behavioral or mental health complaints. Status: Patient is not a resident services supervisor or dependent. Transition of care: patient was not received from another setting of care. Care prior to arrival: See EMS report. Medications administered prior to arrival: ASA, NTG, BP dropped after first NTG Oxygen administered by EMS. 17:00 Acuity: [place]AGO Level 2 jf3 17:00 Method Of Arrival: Ambulance jf3 Triage Assessment: 17:11 General: Appears in no apparent distress, comfortable, Behavior is cooperative. Pain: jf3 Location: mid-sternal area Pain currently is 5 out of 10 on a pain scale. Pain radiates to anterior aspect of left upper chest. HIV screening NA for this visit Offered previously. The patient is triaged at the bedside. See Assessment in Nurses Notes section of ED record. Cardiovascular: Chest pain is described as mild, radiates to left chest episodes are intermittent began this morning. Historical: - Allergies: Tape; mushrooms; - Home Meds: 1. amlodipine 5 mg Oral tab 1 tab once daily (Last dose: 03/24/2016) 2. aspirin 325 mg Oral tab 1 tab once daily (Last dose: 03/24/2016) 3. atorvastatin 40 mg oral tab 1 tab once daily (Last dose: 03/24/2016) 4. calcium acetate 667 mg oral cap 4 caps 3 times per day (Last dose: 03/24/2016) 5. clopidogrel 75 mg oral tab 1 tab once daily (Last dose: 03/24/2016) 6. furosemide 20 mg Oral tab 4 tab once daily (Last dose: 03/24/2016) 7. Humalog Pen sliding scale Sub-Q three times a day Last dose 8 units. states uses once a day because doesn't have much left. (Last dose: 03/24/2016 10:00) 8. isosorbide mononitrate 60 mg Oral Tb24 1 tab once daily (Last dose: 03/24/2016) 9. Levemir FlexTouch 100 unit/mL (3 mL) subcutaneous inpn 12 unit daily (Last dose: 03/24/2016) 10. Lopressor 50 mg Oral tab 2 times per day (Last dose: 03/24/2016) 11. losartan 100 mg oral tab 1 tab once daily (Last dose: 03/24/2016) 12. minoxidil 2.5 mg Oral tab 2 tabs 2 times per day (Last dose: 03/24/2016) 13. [place] 3 Fish Oil 900-1,400 mg oral cpDR twice a day 14. omeprazole 40 mg Oral cpDR 1 cap once daily (Last dose: 03/24/2016) 15. Sensipar 30 mg oral tab 1 tab once daily (Last dose: 03/24/2016) 16. Vitamin D Oral 2000 unit daily 17. Vitamin D3 4,000 unit oral cap daily - PMHx: Asthma; CHF; COPD; Diabetes - IDDM: controlled; Heart Disease; Renal Failure with Dialysis; Stroke; GERD; - PSHx: Cardiac stents; Open heart surgery; Appendectomy; Tonsillectomy; Adenoidectomy; - Social history: Smoking status: Patient uses tobacco products, current every day smoker. No barriers to communication noted, The patient speaks fluent Greenlandic. - Family history: Not pertinent. - : The pt / caregiver states he / she is on anticoagulants: Plavix. Home medication list is obtained from the patient. - Exposure Risk Screening:: None identified. Screenin:13 Screening information is obtained from the patient. Fall risk: No risks identified. jf3 Assistance ADL's: requires no assistance with activities of daily living. Abuse/DV Screen: The patient / caregiver reports he/she is: not in a situation that causes fear, pain or injury. Nutritional screening: On renal diet. Advance Directives: Currently, there is a health care proxy, Yee Rivera, . There is an active DNR order but there is no copy available at this time. home support is adequate. Assessment: 18:31 General: Appears in no apparent distress, comfortable, Behavior is cooperative. Pain: jf3 Location: mid-sternal area Pain currently is 9 out of 10 on a pain scale. Neurological: Level of Consciousness is awake, alert, Oriented to person, place, time. Cardiovascular: Capillary refill < 3 seconds Heart tones S1 S2 present Chest pain. Respiratory: Airway is patent Respiratory effort is even, unlabored, Respiratory pattern is regular, symmetrical, Breath sounds are diminished bilaterally. GI: Abdomen is non- distended Bowel sounds present X 4 quads. Abd is soft and non tender X 4 quads. Derm: Rash noted that is noted to bilateral lower extremities, pt states unknown origin. 19:30 General: Appears in no apparent distress, Behavior is cooperative, Pt resting supine on jf3 stretcher with family at bedside. Pt states feeling SOB at this time. SPO2 stable, QMP aware. 20:23 General: Appears in no apparent distress, comfortable, Behavior is cooperative. jf3 General: Pt states he feels slightly SOB but has improved since coming to ED. Denies pain. Respirations easy and unlabored. Family at bedside. Box lunch given per Dr Ybarra. Pain: Denies pain. Cardiovascular: Rhythm is sinus rhythm. 21:30 General: Appears in no apparent distress, comfortable. General: Pt resting supine on jf3 stretcher with family at bedside. Respirations easy and unlabored. Call light in reach. Will continue to monitor. Pain:. 22:33 General: Appears in no apparent distress, comfortable, Behavior is cooperative. Pain: jf3 Denies pain. Neurological: Level of Consciousness is awake, alert, Oriented to person, place, time. Cardiovascular: Capillary refill < 3 seconds. Respiratory: Airway is patent Respiratory effort is even, unlabored, Respiratory pattern is regular, symmetrical. Derm: Skin is normal. Vital Signs: 17:00 BP 123 / 85 (auto/); jf3 17:02 Pulse 84 MON; Pulse Ox 99% ; jf3 17:03 BP 123 / 85; Pulse 86; Resp 18; Temp 99.2(TE); Pulse Ox 98% on R/A; Weight 99.79 kg ct3 (R); Height 6 ft. 0 in. (182.88 cm) (R); Pain 7/10; 17:15 BP 164 / 77 (auto/); jf3 17:15 Pulse 84 MON; Pulse Ox 96% ; jf3 17:30 BP 166 / 91 (auto/); jf3 17:30 Pulse 86 MON; Pulse Ox 95% ; jf3 17:45 BP 160 / 75 (auto/); jf3 17:45 Pulse 84 MON; Pulse Ox 92% ; jf3 17:59 Pulse 82 MON; Pulse Ox 94% ; jf3 18:00 BP 149 / 68 (auto/); jf3 18:14 Pulse 86 MON; Pulse Ox 93% ; jf3 18:15 BP 191 / 84 (auto/); jf3 18:49 BP 203 / 95 (auto/); jf3 18:50 Pulse 82 MON; Pulse Ox 93% ; jf3 19:04 BP 197 / 100 (auto/); jf3 19:06 Pulse 82 MON; Pulse Ox 94% ; jf3 19:19 BP 194 / 94 (auto/); jf3 19:20 Pulse 84 MON; Pulse Ox 96% ; jf3 19:34 BP 183 / 75 (auto/); jf3 19:36 Pulse 82 MON; Pulse Ox 93% ; jf3 19:49 BP 173 / 82 (auto/); jf3 19:51 Pulse 82 MON; Pulse Ox 93% ; jf3 20:04 BP 194 / 88 (auto/); jf3 20:04 Pulse 82 MON; Pulse Ox 96% ; jf3 20:19 BP 173 / 79 (auto/); jf3 20:20 Pulse 82 MON; Pulse Ox 96% ; jf3 20:34 BP 173 / 94 (auto/); jf3 20:35 Pulse 82 MON; Pulse Ox 96% ; jf3 20:49 BP 197 / 88 (auto/); jf3 20:49 Pulse 92 MON; Pulse Ox 94% ; jf3 20:50 Pulse 88 MON; Pulse Ox 94% ; jf3 21:04 BP 183 / 79 (auto/); jf3 21:19 BP 175 / 76 (auto/); jf3 21:19 Pulse 84; Pulse Ox 92% ; jf3 21:34 BP 154 / 66 (auto/); jf3 21:35 Pulse 81; Pulse Ox 93% ; jf3 21:49 BP 187 / 81 (auto/); jf3 21:49 Pulse 80; Pulse Ox 94% ; jf3 22:04 BP 178 / 82 (auto/); jf3 22:05 Pulse 84; Pulse Ox 93% ; jf3 22:33 BP 188 / 81; Pulse 87; Resp 20; Temp 96.8(O); Pulse Ox 97% on R/A; Pain 0/10; jf3 17:03 Body Mass Index 29.84 (99.79 kg, 182.88 cm) ct3 Vitals: 17:03 Log In Time N/A - ambulance arrival. ct3 ED Course: 16:52 Patient visited by Stephany Roa, Outpatient Pharmacy Manager. deg 16:52 Patient moved to Waiting deg 16:53 Patient moved to 21 deg 17:03 Accompanied by Family Member, Patient has correct armband on for positive ct3 identification. Placed in gown. Bed in low position. Call light in reach. Side rails up X2. academy director on. Pulse ox on. NIBP on. 17:04 Patient visited by Taylor Savage PCA. ct3 17:05 Triage Initiated jf3 17:13 The patient / caregiver is instructed regarding the plan of care and ED course. jf3 17:15 Patient visited by Zhang Arredondo RN. jf3 17:24 Patient visited by Jhonny Ventura. dem1 17:24 EKG done. (by ED staff). Reviewed by Joseph Ybarra MD. dem1 18:12 Joseph Ybarra MD is Attending Physician. br1 18:21 Patient visited by Joseph Ybarra MD. br1 18:34 Missed attempts: 20 gauge X 2 in right forearm. jf3 18:50 [facility] [place] Agreement was scanned into [employer] and attached to record. zo 18:58 Chest, 1 View Returned. EDMS 19:12 Patient visited by Pancho Ramirez PCA. kb5 19:39 Patient moved to Ultrasound dmg 20:10 Patient visited by Pancho Ramirez PCA. kb5 20:13 Patient moved to 21 dmg 20:35 Chest, 1 View Returned. EDMS 20:51 Chikis Mejia is Hospitalizing Provider. br1 21:13 Patient visited by Zhang Arredondo RN. jf3 21:25 Ultrasound Bilateral LE R/O DVT Returned. EDMS 22:53 No procedures done that require assistance. jf3 03/25 10:22 T-Sheet-- Draft Copy was scanned into [employer] and attached to record. gb 10:22 ECG/EKG was scanned into [employer] and attached to record. gb 10:23 Trend VS was scanned into [employer] and attached to record. gb 10:23 Radiology Report was scanned into [employer] and attached to record. gb Administered Medications: 03/24 21:08 Drug: Furosemide 40 mg [furosemide 10 mg/mL injection solution (4 mL)] Route: IVP; jf3 Site: right forearm; 22:54 Follow up: Response: No Adverse Reaction jf3 Attachments: 10:23 Trend VS gb Order Results: Lab Order: Basic Metabolic Profile; SPEC'M 03/24/16 18:50 Test: GLUCOSE, FASTING; Value: 101; Range: 70-105; Units: MG/DL; Status: F Test: BLOOD UREA NITROGEN; Value: 27; Range: 7-18; Abnormal: Above high normal; Units: MG/DL; Status: F Test: CREATININE FOR GFR; Value: 6.02; Range: 0.70-1.30; Abnormal: Above high normal; Units: MG/DL; Status: F Test: GLOMERULAR FILTRATION RATE; Value: 10.3; Range: >56; Abnormal: Below low normal; Status: F Test: SODIUM LEVEL; Value: 129; Range: 136-145; Abnormal: Below low normal; Units: MEQ/L; Status: F Test: POTASSIUM SERUM; Value: 5.7; Range: 3.5-5.1; Abnormal: Above high normal; Units: MEQ/L; Status: F Test: CHLORIDE LEVEL; Value: 91; Range: 98-107; Abnormal: Below low normal; Units: MEQ/L; Status: F Test: CARBON DIOXIDE LEVEL; Value: 27; Range: 21-32; Units: MEQ/L; Status: F Test: ANION GAP; Value: 11; Range: 8-16; Units: MEQ/L; Status: F Test: CALCIUM LEVEL; Value: 9.8; Range: 8.5-10.1; Units: MG/DL; Status: F Test Note: ; Units are mL/min/1.73 m2 Chronic Kidney Disease Staging per NKF: Stage I & II GFR >=60 Normal to Mildly Decreased Stage III GFR 30-59 Moderately Decreased Stage IV GFR 15-29 Severely Decreased Stage V GFR <15 Very Little GFR Left ESRD GFR <15 on SCHOOL ADMINISTRATOR Lab Order: CBC with Diff; SPEC'M 03/24/16 18:50 Test: WHITE BLOOD COUNT; Value: 6.0; Range: 4.0-10.0; Units: K/mm3; Status: F Test: RED BLOOD COUNT; Value: 3.12; Range: 4.30-6.10; Abnormal: Below low normal; Units: M/mm3; Status: F Test: HEMOGLOBIN; Value: 10.0; Range: 14.0-18.0; Abnormal: Below low normal; Units: g/dl; Status: F Test: HEMATOCRIT; Value: 30.4; Range: 42.0-52.0; Abnormal: Below low normal; Units: %; Status: F Test: MEAN CORPUSCULAR VOLUME; Value: 97.4; Range: 80.0-96.0; Abnormal: Above high normal; Units: fl; Status: F Test: MEAN CORPUSCULAR HEMOGLOBIN; Value: 32.1; Range: 27.0-33.0; Units: pg; Status: F Test: MEAN CORPUSCULAR HGB CONC; Value: 33.0; Range: 32.0-36.5; Units: g/dl; Status: F Test: RED CELL DISTRIBUTION WIDTH; Value: 14.4; Range: 11.5-14.5; Units: %; Status: F Test: PLATELET COUNT, AUTOMATED; Value: 215; Range: 150-450; Units: k/mm3; Status: F Test: NEUTROPHILS %; Value: 66.3; Range: 36.0-66.0; Abnormal: Above high normal; Units: %; Status: F Test: LYMPH %; Value: 17.2; Range: 24.0-44.0; Abnormal: Below low normal; Units: %; Status: F Test: MONO %; Value: 7.5; Range: 0.0-5.0; Abnormal: Above high normal; Units: %; Status: F Test: EOS %; Value: 5.4; Range: 0.0-3.0; Abnormal: Above high normal; Units: %; Status: F Test: BASO %; Value: 1.0; Range: 0.0-1.0; Units: %; Status: F Test: LARGE UNSTAINED CELL %; Value: 2.5; Range: 0.0-4.0; Units: %; Status: F Test: NEUTROPHILS #; Value: 4.0; Range: 1.8-7.7; Units: K/mm3; Status: F Test: LYMPH #; Value: 1.0; Range: 1.5-4.5; Abnormal: Below low normal; Units: K/mm3; Status: F Test: MONO #; Value: 0.5; Range: 0.0-0.8; Units: K/mm3; Status: F Test: EOS #; Value: 0.3; Range: 0.0-0.50; Units: K/mm3; Status: F Test: BASO #; Value: 0.1; Range: 0.0-0.2; Units: K/mm3; Status: F Test: LARGE UNSTAINED CELL #; Value: 0.2; Range: 0.0-0.4; Units: K/mm3; Status: F Lab Order: Cardiac Injury Profile; SPEC'M 03/24/16 18:50 Test: CPK CREATINE PHOSPHOKINASE; Value: 148; Range: 39-308; Units: U/L; Status: F Test: CK-MB VALUE MASS; Value: 3.5; Range: 0.0-3.6; Units: NG/ML; Status: F Test: MB/CK RELATIVE INDEX; Value: 2.36; Range: < OR =4; Status: F Test Note: ; DIAGNOSIS CRITERIA MMB ng/ml Relative Index (RI) NON-AMI < or = 5 N/A [place] > 5 < or = 4 AMI > 5 > 4 Lab Order: Troponin; SPEC'M 03/24/16 18:50 Test: TROPONIN I; Value: 0.07; Range: < 0.10; Units: NG/ML; Status: F Test Note: ; Troponin I Reference Interval for [place] LOCI: 99th Percentile= 0.00-0.045 ng/ml Risk Stratification: <= 0.10 ng/ml Decreased Risk for Adverse Clinical Events. 0.10-1.50 ng/ml Increased Risk for Adverse Clinical Events. Evaluation of additional criterion and/or repeat testing in 2-6 hours is suggested to rule out myocardial damage. >= 1.50 ng/ml Indicative of Myocardial Injury. Lab Order: BNP; SPEC'M 03/24/16 18:50 Test: BRAIN NATRIURETIC PEPTIDE; Value: > 5000; Range: <100; Abnormal: Above high normal; Units: PG/ML; Status: F Lab Order: D-Dimer Quant; SPEC'M 03/24/16 18:50 Test: D-DIMER QUANT; Value: 2037.8; Range: <500; Abnormal: Above high normal; Units: ng/ml; Status: F Lab Order: -Influenza A&B Rapid Antigen - Nose; SPEC'M 03/24/16 18:54 Test: INFLUENZA A RAPID SCR by ICA; Value: INFLUENZA A RESULTS NEGATIVE; Status: F Test: INFLUENZA A RAPID SCR by ICA; Value: Comments:; Status: F Test: INFLUENZA B RAPID SCR by ICA; Value: INFLUENZA B RESULTS NEGATIVE; Status: F Test Note: ; The Influenza test is a direct rapid immunoassay for the qualitative detection of Influenza viral antigen. Cell culture (Viral Culture) testing should be considered to confirm NEGATIVE results and to assist in detecting other viruses that can provide similar clinical symptoms. Please contact the lab within 24 hours [phone]) if confirmatory testing is desired. Radiology Order: Chest, 1 View Test: Chest, 1 View REASON FOR EXAMINATION: Chest Pain; Portable chest x-ray: Two views presented:; ; History: Chest pain.; ; Comparison chest x-ray: 03/02/2016.; ; Findings: The patient is rotated somewhat to the right. The heart is enlarged.; The azygos vein appears dilated. This is unchanged. Pulmonary vasculature is; cephalized. Interstitial markings are diffusely prominent and a few Misha B; lines are visible. No pleural effusion is seen. No focal infiltrate.; ; Impression:; ; CHF pattern with Misha B lines, fissural thickening, vascular cephalization and; cardiomegaly. No free pleural effusion seen.; ; ; Signed by; Yeison Krishnan MD 03/24/2016 07:47 P; Radiology Order: Ultrasound Bilateral LE R/O DVT Test: Ultrasound Bilateral LE R/O DVT REASON FOR EXAMINATION: Deformity/Swelling; ; Clinical history: Pain, swelling.; Findings: The common femoral, superficial femoral, popliteal, and other deep venous structures compre; ss normally and demonstrate normal color Doppler flow. Normal venous waveforms with augmentation are; seen. There are multiple large lymph nodes in the inguinal regions bilaterally.; Impression:; 1. No evidence of deep vein thrombosis in the femoral popliteal venous system.; 2. Bilateral inguinal lymphadenopathy. Follow-up is suggested as clinically indicated.; ; Outcome: 03/24 20:51 Decision to Hospitalize by Provider. br1 22:53 Discharge Assessment: patient administered narcotics - no. The following High Risk jf3 Discharge criteria are identified: None. Admitted to PCU accompanied by nurse, accompanied by tech, via stretcher, on monitor, with chart. Condition: stable. CT Study completed. Ultrasound Study completed. Property :Personal belongings accompany Pt. 22:54 Patient left the ED. jf3 Signatures: Dispatcher [employer] EDMS Stephany Roa, Outpatient Pharmacy Manager Unit deg Benita Rucker dmMassiel Lee, Reg Reg gb Edel Lantigua Kristopher, ASPHALT PAVING SUPERVISOR ASPHALT PAVING SUPERVISOR kb5 Joseph Ybarra MD MD br1 Taylor Savage, ASPHALT PAVING SUPERVISOR ASPHALT PAVING SUPERVISOR ct3 Jhonny Ventura dem1 Zhang Arredondo,RN RN jf3 Corrections: (The following items were deleted from the chart) 17:14 17:13 Advance Directives: Currently, there is a health care proxy, Yee Rivera, . jf3 There is no active DNR order. jf3 Chart Complete MTDD
== END 2016-03-26 12:50 | disposition home or self-care (01) | DRG 291 ==
LOC: M ED 16:51 → M ED INP 21:50 → M PCU 22:58
PROVIDERS: ADMIT Internal Medicine Nephrology; ATTEND Hospitalist
DX: I50.23 Acute on chronic systolic (congestive) heart failure (principal); N18.6 End stage renal disease; E87.1 Hypo-osmolality and hyponatremia; N25.81 Secondary hyperparathyroidism of renal origin; I12.0 Hypertensive chronic kidney disease with stage 5 chronic kidney disease or end stage renal disease; F17.200 Nicotine dependence, unspecified, uncomplicated; I48.0 Paroxysmal atrial fibrillation; D63.1 Anemia in chronic kidney disease; E11.9 Type 2 diabetes mellitus without complications; I25.10 Atherosclerotic heart disease of native coronary artery without angina pectoris; Z91.19 Patient's noncompliance with other medical treatment and regimen; Z79.899 Other long term (current) drug therapy; Z79.82 Long term (current) use of aspirin; Z79.52 Long term (current) use of systemic steroids; I73.9 Peripheral vascular disease, unspecified; K21.9 Gastro-esophageal reflux disease without esophagitis; J44.9 Chronic obstructive pulmonary disease, unspecified; E83.39 Other disorders of phosphorus metabolism; E87.5 Hyperkalemia

== ENCOUNTER 2016-03-28 23:35 | Emergency (ER) | payer MEDICARE, MEDICAID ==
[~2016-03-28 23:35] MED LIST changes: +AMLO5TAB2 PO; +CINA30TA PO; +FLUT11IN INH; +FOSR1000 PO; +LIDO2.5C15 EXT; +OMEG100011 PO; +PRED20TA PO; +PROA1AER INH
[2016-03-29] MEDS ORDERED: IPRATROPIUM 0.5MG/ALBUTEROL 2.5MG INH SOL UD 3ML (DUONEB)(J7620) As Ordered ONE (00:46)
[2016-03-29] MEDS ORDERED: dexameTHASONE 20 MG/5 ML VIAL (J1100) As Ordered ONE (01:07)
[2016-03-29] MEDS ORDERED: guaiFENesin DM LIQ 10ML UD As Ordered ONE (01:08)
--- NOTE | 2016-03-29 02:20 | EDDOCDS ---
Nurse's Notes [facility] Name: Antonio Rivera Age: 55 yrs Sex: Male : 1960 Arrival Date: 03/28/2016 Time: 23:35 Bed 5 Private MD: URBANO WOODWARD Diagnosis: Chronic obstructive pulmonary disease with (acute) exacerbation Presentation: 03/28 23:43 Presenting complaint: Patient states: Left sided chest pain since 1000 this am--worse mcp this am, now pain 8/10. Was given 324mg ASA by EMS, refused IV start. Adult Sepsis Screening: The patient does not have new or worsening altered mentation. Patient's respiratory rate is less than 22. Systolic blood pressure is greater than 100. Patient has a qSOFA score of 0- Negative Sepsis Screen. Suicide/Homicide risk assessment- the patient denies having any suicidal and/or homicidal ideations and does not present with any other emotional, behavioral or mental health complaints. Status: Patient is not a visitor services information assistant or dependent. Transition of care: patient was not received from another setting of care. 23:43 Acuity: [place] Level 3 [facility] 23:43 Method Of Arrival: Ambulance [facility] Triage Assessment: 23:50 General: Appears uncomfortable, Behavior is cooperative. Pain: Location: anterior mcp aspect of left upper chest Pain currently is 8 out of 10 on a pain scale. HIV screening NA for this visit Offered previously. Neurological: No deficits noted. Respiratory: Airway is patent. Derm: Skin is pink, warm & dry. Historical: - Allergies: mushrooms; Tape; - Home Meds: 1. amlodipine 5 mg Oral tab 1 tab once daily 2. aspirin 325 mg Oral tab 1 tab once daily 3. atorvastatin 40 mg oral tab 1 tab once daily 4. calcium acetate 667 mg oral cap 4 caps 3 times per day 5. clopidogrel 75 mg oral tab 1 tab once daily 6. furosemide 20 mg Oral tab 4 tab once daily 7. Humalog Pen sliding scale Sub-Q three times a day 8. isosorbide mononitrate 60 mg Oral Tb24 1 tab once daily 9. Levemir FlexTouch 100 unit/mL (3 mL) subcutaneous inpn 12 unit daily 10. Lopressor 50 mg Oral tab 2 times per day 11. losartan 100 mg oral tab 1 tab once daily 12. minoxidil 2.5 mg Oral tab 2 tabs 2 times per day 13. [place] 3 Fish Oil 900-1,400 mg oral cpDR twice a day 14. Sensipar 30 mg oral tab 1 tab once daily 15. Vitamin D Oral 2000 unit daily 16. Vitamin D3 4,000 unit oral cap daily 17. Flovent 110 mcg/actuation Inhl aero 2 puffs 2 times per day 18. albuterol sulfate 90 mcg/actuation Inhl HFAA 2 puffs every 4-6 hours - PMHx: Asthma; CHF; COPD; Diabetes - IDDM: controlled; GERD; Heart Disease; Renal Failure with Dialysis; Stroke; - PSHx: Appendectomy; Tonsillectomy; Adenoidectomy; Open heart surgery; Cardiac stents; toe removed from right foot; shunt placements and revisions; - Social history: Smoking status: Patient uses tobacco products, light tobacco smoker. No barriers to communication noted, The patient speaks fluent Chadian. - Family history: Not pertinent. - : The pt / caregiver states he / she is on anticoagulants: Plavix. Home medication list is obtained from the patient. - Exposure Risk Screening:: None identified. Screenin/21 00:30 Screening information is obtained from the patient. Fall risk: No risks identified. js15 Assistance ADL's: requires no assistance with activities of daily living. Abuse/DV Screen: The patient / caregiver reports he/she is: not in a situation that causes fear, pain or injury. Nutritional screening: No deficits noted. Advance Directives: There is no active DNR order. home support is adequate. Assessment: 00:30 General: Appears in no apparent distress, Behavior is appropriate for age, cooperative. js15 Neurological: Level of Consciousness is awake, alert, obeys commands, Oriented to person, place, time. Respiratory: Airway is patent Respiratory effort is even, unlabored, Respiratory pattern is regular, symmetrical. Derm: Skin is pink, warm & dry. 01:30 Reassessment: Patient appears in no apparent distress at this time. Pt resting on js15 stretcher, talking to family at bedside and watching tv; respirations even and unlabored; skin pink, warm, dry; cardiac rhythm is NSR. Vital Signs: 03/28 23:42 BP 179 / 81; Pulse 82; Resp 18; Pulse Ox 97% on R/A; Weight 100.24 kg; Height 6 ft. 3 mcp in. (190.50 cm); Pain 8/10; 23:51 Temp 97.3(O); [facility] 03/29 01:11 BP 187 / 79 (auto/); js15 01:12 Pulse 80 MON; Pulse Ox 97% ; js15 01:41 BP 186 / 79 (auto/); js15 01:41 Pulse 80 MON; Pulse Ox 97% ; js15 02:12 BP 188 / 87; Pulse 82; Resp 18; Temp 98.4(O); Pulse Ox 94% on R/A; js15 03/28 23:42 Body Mass Index 27.62 (100.24 kg, 190.50 cm) [facility] Vitals: 03/28 23:42 Log In Time N/A - ambulance arrival. [facility] ED Course: 23:36 Patient visited by Trae Duran Button Sewer. ml3 23:36 Patient moved to Waiting ml3 23:37 URBANO WOODWARD is Private Physician. ml3 23:37 Patient moved to 5 ml3 23:44 Triage Initiated [facility] 23:51 Patient visited by Lila Montanez RN. [facility] 23:54 Kristopher Souza DO is Attending Physician. [facility] 23:54 Patient visited by Kristopher Souza DO. [facility] 03/29 00:01 EKG done. (by ED staff). Reviewed by Kristopher Souza DO. [facility] 01:00 Patient visited by Corina Pardo RN. 15 01:00 The patient / caregiver is instructed regarding the plan of care and ED course. 15 01:00 Inserted saline lock: 20 gauge in right forearm The patient tolerated the procedure js15 well. 01:26 [facility] Payment Agreement was scanned into [employer] and attached to record. [facility] 02:02 No procedures done that require assistance. js15 02:13 Discontinued IV lock intact, bleeding controlled, pressure dressing applied, No js15 redness/swelling at site. Administered Medications: 00:49 Drug: Albuterol-Ipratropium 3 ml [ipratropium-albuterol 0.5 mg-3 mg(2.5 mg base)/3 mL bb3 nebulization soln (3 mL)] Route: Inhalation; 00:55 Follow up: lung sounds increased throughout. Lung sounds with scattered crackles in bb3 posterior 00:50 CANCELLED (Duplicate Order): Albuterol-Ipratropium 3 ml Inhalation once bb3 01:10 Drug: Dextromethorphan-Guaifenesin 5 ml [dextromethorphan-guaifenesin 10 mg-100 mg/5 mL js15 oral liquid (5 mL)] Route: PO; 01:10 Drug: Dexamethasone 12 mg [dexamethasone 4 mg/mL injection solution] Route: IV; Rate: js15 bolus; Site: right forearm; 02:02 Follow up: Response: No Adverse Reaction js15 Intake: RT: 00:46 Respiratory: Respiratory effort is even, unlabored, Respiratory pattern is regular bb3 symmetrical, diminished fine scattered wheezes throughout. Pt has a strong hacking non productive cough. 00:48 Initial Med Neb Given as ordered Patient was instructed and evaluated on procedure. bb3 00:53 Respiratory: lung sounds increased throughout. Lung sounds with scattered crackles in bb3 posterior. Order Results: There are currently no results for this order. Outcome: 02:00 Discharge ordered by Provider. cs11 02:13 Discharge Assessment: Patient awake, alert and oriented x 3. No cognitive and/or js15 functional deficits noted. Patient verbalized understanding of disposition instructions. patient administered narcotics - no. The following High Risk Discharge criteria are identified: None. Discharged to home ambulatory, with family. Condition: unchanged. Discharge instructions given to patient, Instructed on discharge instructions, follow up and referral plans. medication usage, Demonstrated understanding of instructions, medications, Pt was receptive of discharge instructions/ teaching. Prescriptions given X 1. No special radiology studies were completed. Property sent home with patient. 02:20 Patient left the ED. js15 Signatures: Lila Montanez, RN RN Trae Mckay, Button Sewer Unit ml3 Ac Penny bb3 Kristopher Souza DO DO cs11 Anna Diaz Julia, RN RN js15 MTDD
--- NOTE | 2016-03-29 02:20 | EDDOCDS ---
Physician Documentation [facility] Name: Antonio Rivera Age: 55 yrs Sex: Male : 1960 Arrival Date: 03/28/2016 Time: 23:35 Bed 5 Private MD: URBANO WOODWARD Disposition: 03/29/16 02:00 Discharged to Home/Self Care. Impression: Chronic obstructive pulmonary disease with (acute) exacerbation. - Condition is Stable. - Prescriptions for Prednisone 20 mg Oral Tablet - take 3 tablets by ORAL route once daily for 4 days; 12 tablet. - Medication Reconciliation, Local Pharmacy Hours form. - Follow up: Private Physician; When: Call to arrange an appointment; Reason: Recheck today's complaints. - Problem is chronic. - Symptoms have improved. Historical: - Allergies: mushrooms; Tape; - Home Meds: 1. amlodipine 5 mg Oral tab 1 tab once daily 2. aspirin 325 mg Oral tab 1 tab once daily 3. atorvastatin 40 mg oral tab 1 tab once daily 4. calcium acetate 667 mg oral cap 4 caps 3 times per day 5. clopidogrel 75 mg oral tab 1 tab once daily 6. furosemide 20 mg Oral tab 4 tab once daily 7. Humalog Pen sliding scale Sub-Q three times a day 8. isosorbide mononitrate 60 mg Oral Tb24 1 tab once daily 9. Levemir FlexTouch 100 unit/mL (3 mL) subcutaneous inpn 12 unit daily 10. Lopressor 50 mg Oral tab 2 times per day 11. losartan 100 mg oral tab 1 tab once daily 12. minoxidil 2.5 mg Oral tab 2 tabs 2 times per day 13. [place] 3 Fish Oil 900-1,400 mg oral cpDR twice a day 14. Sensipar 30 mg oral tab 1 tab once daily 15. Vitamin D Oral 2000 unit daily 16. Vitamin D3 4,000 unit oral cap daily 17. Flovent 110 mcg/actuation Inhl aero 2 puffs 2 times per day 18. albuterol sulfate 90 mcg/actuation Inhl HFAA 2 puffs every 4-6 hours - PMHx: Asthma; CHF; COPD; Diabetes - IDDM: controlled; GERD; Heart Disease; Renal Failure with Dialysis; Stroke; - PSHx: Appendectomy; Tonsillectomy; Adenoidectomy; Open heart surgery; Cardiac stents; toe removed from right foot; shunt placements and revisions; - Social history: Smoking status: Patient uses tobacco products, light tobacco smoker. No barriers to communication noted, The patient speaks fluent [place]. - Family history: Not pertinent. - : The pt / caregiver states he / she is on anticoagulants: Plavix. Home medication list is obtained from the patient. - Exposure Risk Screening:: None identified. Vital Signs: 03/28 23:42 BP 179 / 81; Pulse 82; Resp 18; Pulse Ox 97% on R/A; Weight 100.24 kg / 220.99 lbs; mcp Height 6 ft. 3 in. (190.50 cm); Pain 8/10; 23:51 Temp 97.3(O); mcp 03/29 01:11 BP 187 / 79 (auto/); js15 01:12 Pulse 80 MON; Pulse Ox 97% ; js15 01:41 BP 186 / 79 (auto/); js15 01:41 Pulse 80 MON; Pulse Ox 97% ; js15 02:12 BP 188 / 87; Pulse 82; Resp 18; Temp 98.4(O); Pulse Ox 94% on R/A; js15 03/28 23:42 Body Mass Index 27.62 (100.24 kg, 190.50 cm) mcp MDM: 03/28 23:52 ECG WITH READING ER PHYS+CARDIAG ordered. EDMS 23:56 Chest, 2 View (pa\E\lat) Ordered. EDMS 03/29 00:28 Financial registration complete. [facility] 00:45 Dextromethorphan-Guaifenesin Liquid 10 mg-100 mg/5 mL 5 ml PO once ordered. 11 00:45 Albuterol-Ipratropium 3 ml Inhalation once ordered. cs11 00:45 Call Respiratory ordered. cs11 00:45 IV Saline Lock ordered. cs11 00:45 Dexamethasone 12 mg IV at bolus once ordered. cs11 00:46 Call Respiratory complete. ml3 01:26 [facility] Payment Agreement was scanned into [employer] and attached to record. [facility] Administered Medications: 00:49 Drug: Albuterol-Ipratropium 3 ml [ipratropium-albuterol 0.5 mg-3 mg(2.5 mg base)/3 mL bb3 nebulization soln (3 mL)] Route: Inhalation; 00:55 Follow up: lung sounds increased throughout. Lung sounds with scattered crackles in bb3 posterior 00:50 CANCELLED (Duplicate Order): Albuterol-Ipratropium 3 ml Inhalation once bb3 01:10 Drug: Dextromethorphan-Guaifenesin 5 ml [dextromethorphan-guaifenesin 10 mg-100 mg/5 mL js15 oral liquid (5 mL)] Route: PO; 01:10 Drug: Dexamethasone 12 mg [dexamethasone 4 mg/mL injection solution] Route: IV; Rate: js15 bolus; Site: right forearm; 02:02 Follow up: Response: No Adverse Reaction js15 Signatures: Dispatcher [employer] EDMS Lila Montanez, RN RN [facility] Trae Duran, Box Sorter Unit ml3 Ac Penny bb3 Kristopher Souza, DO 11 Anna Diaz [facility] Corina PardoRN RN js15 The chart was reviewed and I authenticate all verbal orders and agree with the evaluation and treatment provided.Corrections: (The following items were deleted from the chart) 00:50 00:44 Albuterol-Ipratropium 3 ml Inhalation once ordered. bb3 bb3 Attachments: 01:26 [facility] Payment Agreement [facility] MTDD
--- NOTE | 2016-03-29 08:16 | ECGEPIP ---
Stationary ECG Study 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
--- NOTE | 2016-03-29 11:09 | REP ---
Chest x-ray: Two views. History: Cough. Comparison chest x-ray March 24, 2016. Findings: There is widening of the superior mediastinum in the region of the right paratracheal region. This may be dilated azygos vein. It is a bit more prominent than on March 02, 2016. Cardiomegaly is observed. There is also some fullness behind the left heart border in the left mediastinal contour and in the azygo-esophageal line, question upper abdominal and lower thoracic or perhaps retrocrural lymphadenopathy. The pleural angles are sharp. There are a few Misha-B lines in the right base. No pleural effusion is seen. No infiltrate is noted. Impression: Cardiomegaly. Dilation of the azygos vein versus right paratracheal lymphadenopathy. Question retrocrural or upper abdominal lymphadenopathy behind the heart. Consider abdominal CT scanning. Signed by Yeison Krishnan MD 03/29/2016 01:13 P
--- NOTE | 2016-03-31 03:21 | EDDOCDS ---
Nurse's Notes [facility] Name: Antonio Rivera Age: 55 yrs Sex: Male : 1960 Arrival Date: 03/28/2016 Time: 23:35 Bed 5 Private MD: URBANO WOODWARD Diagnosis: Chronic obstructive pulmonary disease with (acute) exacerbation Presentation: 03/28 23:43 Presenting complaint: Patient states: Left sided chest pain since 1000 this am--worse mcp this am, now pain 8/10. Was given 324mg ASA by EMS, refused IV start. Adult Sepsis Screening: The patient does not have new or worsening altered mentation. Patient's respiratory rate is less than 22. Systolic blood pressure is greater than 100. Patient has a qSOFA score of 0- Negative Sepsis Screen. Suicide/Homicide risk assessment- the patient denies having any suicidal and/or homicidal ideations and does not present with any other emotional, behavioral or mental health complaints. 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 Transition of care: patient was not received from another setting of care. 23:43 Acuity: [place] Level 3 [facility] 23:43 Method Of Arrival: Ambulance [facility] Triage Assessment: 23:50 General: Appears uncomfortable, Behavior is cooperative. Pain: Location: anterior mcp aspect of left upper chest Pain currently is 8 out of 10 on a pain scale. HIV screening NA for this visit Offered previously. Neurological: No deficits noted. Respiratory: Airway is patent. Derm: Skin is pink, warm & dry. Historical: - Allergies: mushrooms; Tape; - Home Meds: 1. amlodipine 5 mg Oral tab 1 tab once daily 2. aspirin 325 mg Oral tab 1 tab once daily 3. atorvastatin 40 mg oral tab 1 tab once daily 4. calcium acetate 667 mg oral cap 4 caps 3 times per day 5. clopidogrel 75 mg oral tab 1 tab once daily 6. furosemide 20 mg Oral tab 4 tab once daily 7. Humalog Pen sliding scale Sub-Q three times a day 8. isosorbide mononitrate 60 mg Oral Tb24 1 tab once daily 9. Levemir FlexTouch 100 unit/mL (3 mL) subcutaneous inpn 12 unit daily 10. Lopressor 50 mg Oral tab 2 times per day 11. losartan 100 mg oral tab 1 tab once daily 12. minoxidil 2.5 mg Oral tab 2 tabs 2 times per day 13. [place] 3 Fish Oil 900-1,400 mg oral cpDR twice a day 14. Sensipar 30 mg oral tab 1 tab once daily 15. Vitamin D Oral 2000 unit daily 16. Vitamin D3 4,000 unit oral cap daily 17. Flovent 110 mcg/actuation Inhl aero 2 puffs 2 times per day 18. albuterol sulfate 90 mcg/actuation Inhl HFAA 2 puffs every 4-6 hours - PMHx: Asthma; CHF; COPD; Diabetes - IDDM: controlled; GERD; Heart Disease; Renal Failure with Dialysis; Stroke; - PSHx: Appendectomy; Tonsillectomy; Adenoidectomy; Open heart surgery; Cardiac stents; toe removed from right foot; shunt placements and revisions; - Social history: Smoking status: Patient uses tobacco products, light tobacco smoker. No barriers to communication noted, The patient speaks fluent Colombian. - Family history: Not pertinent. - : The pt / caregiver states he / she is on anticoagulants: Plavix. Home medication list is obtained from the patient. - Exposure Risk Screening:: None identified. Screenin/21 00:30 Screening information is obtained from the patient. Fall risk: No risks identified. js15 Assistance ADL's: requires no assistance with activities of daily living. Abuse/DV Screen: The patient / caregiver reports he/she is: not in a situation that causes fear, pain or injury. Nutritional screening: No deficits noted. Advance Directives: There is no active DNR order. home support is adequate. Assessment: 00:30 General: Appears in no apparent distress, Behavior is appropriate for age, cooperative. js15 Neurological: Level of Consciousness is awake, alert, obeys commands, Oriented to person, place, time. Respiratory: Airway is patent Respiratory effort is even, unlabored, Respiratory pattern is regular, symmetrical. Derm: Skin is pink, warm & dry. 01:30 Reassessment: Patient appears in no apparent distress at this time. Pt resting on js15 stretcher, talking to family at bedside and watching tv; respirations even and unlabored; skin pink, warm, dry; cardiac rhythm is NSR. Vital Signs: 03/28 23:42 BP 179 / 81; Pulse 82; Resp 18; Pulse Ox 97% on R/A; Weight 100.24 kg; Height 6 ft. 3 mcp in. (190.50 cm); Pain 8/10; 23:51 Temp 97.3(O); [facility] 03/29 01:11 BP 187 / 79 (auto/); js15 01:12 Pulse 80 MON; Pulse Ox 97% ; js15 01:41 BP 186 / 79 (auto/); js15 01:41 Pulse 80 MON; Pulse Ox 97% ; js15 02:12 BP 188 / 87; Pulse 82; Resp 18; Temp 98.4(O); Pulse Ox 94% on R/A; js15 03/28 23:42 Body Mass Index 27.62 (100.24 kg, 190.50 cm) [facility] Vitals: 03/28 23:42 Log In Time N/A - ambulance arrival. [facility] ED Course: 23:36 Patient visited by Trae Duran Reporting Process Consultant. ml3 23:36 Patient moved to Waiting ml3 23:37 URBANO WOODWARD is Private Physician. ml3 23:37 Patient moved to 5 ml3 23:44 Triage Initiated [facility] 23:51 Patient visited by Lila Montanez RN. [facility] 23:54 Kristopher Patel DO is Attending Physician. [facility] 23:54 Patient visited by Kristopher Patel DO. [facility] 03/29 00:01 EKG done. (by ED staff). Reviewed by Kristopher Patel DO. [facility] 01:00 Patient visited by Corina Pardo RN. 15 01:00 The patient / caregiver is instructed regarding the plan of care and ED course. js15 01:00 Inserted saline lock: 20 gauge in right forearm The patient tolerated the procedure js15 well. 01:26 [facility] Payment Agreement was scanned into [employer] and attached to record. [facility] 02:02 No procedures done that require assistance. js15 02:13 Discontinued IV lock intact, bleeding controlled, pressure dressing applied, No js15 redness/swelling at site. 08:42 EKG-ADULT Returned. EDMS 11:00 T-Sheet-- Draft Copy was scanned into [employer] and attached to record. gb 11:01 ECG/EKG was scanned into [employer] and attached to record. gb 11:34 Chest, 2 View (pa\E\lat) Returned. EDMS Administered Medications: 00:49 Drug: Albuterol-Ipratropium 3 ml [ipratropium-albuterol 0.5 mg-3 mg(2.5 mg base)/3 mL bb3 nebulization soln (3 mL)] Route: Inhalation; 00:55 Follow up: lung sounds increased throughout. Lung sounds with scattered crackles in bb3 posterior 00:50 CANCELLED (Duplicate Order): Albuterol-Ipratropium 3 ml Inhalation once bb3 01:10 Drug: Dextromethorphan-Guaifenesin 5 ml [dextromethorphan-guaifenesin 10 mg-100 mg/5 mL js15 oral liquid (5 mL)] Route: PO; 01:10 Drug: Dexamethasone 12 mg [dexamethasone 4 mg/mL injection solution] Route: IV; Rate: js15 bolus; Site: right forearm; 02:02 Follow up: Response: No Adverse Reaction js15 Intake: RT: 00:46 Respiratory: Respiratory effort is even, unlabored, Respiratory pattern is regular bb3 symmetrical, diminished fine scattered wheezes throughout. Pt has a strong hacking non productive cough. 00:48 Initial Med Neb Given as ordered Patient was instructed and evaluated on procedure. bb3 00:53 Respiratory: lung sounds increased throughout. Lung sounds with scattered crackles in bb3 posterior. 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: ; : 1960 Requested By: KRISTOPHER PATEL; Order Number: [id number] Reading MD: Elissa Medellin; Measurements; Intervals Maurice; Rate: 79 P: 68; WV: 197 QRS: 197; QRSD: 148 T: 27; QT: 398; QTc: 459; Interpretive Statements; SINUS RHYTHM; INDETERMINATE AXIS; RIGHT BUNDLE BRANCH BLOCK AND POSSIBLE RIGHT VENTRICULAR HYPERTROPHY; ST DEPRESSION, CONSIDER SUBENDOCARDIAL INJURY; SIMILAR 03/24/16 17:22; Electronically Signed On 03-29-2016 8:15:35 EST by Elissa Medellin; Radiology Order: Chest, 2 View (pa\E\lat) Test: Chest, 2 View (pa\E\lat) REASON FOR EXAMINATION: Cough; Chest x-ray: Two views.; ; History: Cough.; ; Comparison chest x-ray March 24, 2016.; ; Findings: There is widening of the superior mediastinum in the region of the; right paratracheal region. This may be dilated azygos vein. It is a bit more; prominent than on March 02, 2016. Cardiomegaly is observed. There is also; some fullness behind the left heart border in the left mediastinal contour and in; the azygo-esophageal line, question upper abdominal and lower thoracic or perhaps; retrocrural lymphadenopathy. The pleural angles are sharp. There are a few; Misha-B lines in the right base. No pleural effusion is seen. No infiltrate is; noted.; ; Impression:; ; Cardiomegaly. Dilation of the azygos vein versus right paratracheal; lymphadenopathy. Question retrocrural or upper abdominal lymphadenopathy behind; the heart. Consider abdominal CT scanning.; ; ; Signed by; Yeison Krishnan MD 03/29/2016 01:13 P; Outcome: 02:00 Discharge ordered by Provider. cs11 02:13 Discharge Assessment: Patient awake, alert and oriented x 3. No cognitive and/or js15 functional deficits noted. Patient verbalized understanding of disposition instructions. patient administered narcotics - no. The following High Risk Discharge criteria are identified: None. Discharged to home ambulatory, with family. Condition: unchanged. Discharge instructions given to patient, Instructed on discharge instructions, follow up and referral plans. medication usage, Demonstrated understanding of instructions, medications, Pt was receptive of discharge instructions/ teaching. Prescriptions given X 1. No special radiology studies were completed. Property sent home with patient. 02:20 Patient left the ED. js15 Signatures: Dispatcher [employer] EDMS Lila Montanez, RN RN Massiel Sharma, Reg Reg Trae Campbell, Reporting Process Consultant Unit [email or web address] Ac Penny bb3 Kristopher Patel DO DO cs11 Anna Diaz Corina Shields,RADHA GARCIA js15 Chart Complete MTDD
--- NOTE | 2016-03-31 03:21 | EDDOCDS ---
Physician Documentation [facility] Name: Antonio Rivera Age: 55 yrs Sex: Male : 1960 Arrival Date: 03/28/2016 Time: 23:35 Bed 5 Private MD: URBANO WOODWARD Disposition: 03/29/16 02:00 Discharged to Home/Self Care. Impression: Chronic obstructive pulmonary disease with (acute) exacerbation. - Condition is Stable. - Prescriptions for Prednisone 20 mg Oral Tablet - take 3 tablets by ORAL route once daily for 4 days; 12 tablet. - Medication Reconciliation, Local Pharmacy Hours form. - Follow up: Private Physician; When: Call to arrange an appointment; Reason: Recheck today's complaints. - Problem is chronic. - Symptoms have improved. Historical: - Allergies: mushrooms; Tape; - Home Meds: 1. amlodipine 5 mg Oral tab 1 tab once daily 2. aspirin 325 mg Oral tab 1 tab once daily 3. atorvastatin 40 mg oral tab 1 tab once daily 4. calcium acetate 667 mg oral cap 4 caps 3 times per day 5. clopidogrel 75 mg oral tab 1 tab once daily 6. furosemide 20 mg Oral tab 4 tab once daily 7. Humalog Pen sliding scale Sub-Q three times a day 8. isosorbide mononitrate 60 mg Oral Tb24 1 tab once daily 9. Levemir FlexTouch 100 unit/mL (3 mL) subcutaneous inpn 12 unit daily 10. Lopressor 50 mg Oral tab 2 times per day 11. losartan 100 mg oral tab 1 tab once daily 12. minoxidil 2.5 mg Oral tab 2 tabs 2 times per day 13. [place] 3 Fish Oil 900-1,400 mg oral cpDR twice a day 14. Sensipar 30 mg oral tab 1 tab once daily 15. Vitamin D Oral 2000 unit daily 16. Vitamin D3 4,000 unit oral cap daily 17. Flovent 110 mcg/actuation Inhl aero 2 puffs 2 times per day 18. albuterol sulfate 90 mcg/actuation Inhl HFAA 2 puffs every 4-6 hours - PMHx: Asthma; CHF; COPD; Diabetes - IDDM: controlled; GERD; Heart Disease; Renal Failure with Dialysis; Stroke; - PSHx: Appendectomy; Tonsillectomy; Adenoidectomy; Open heart surgery; Cardiac stents; toe removed from right foot; shunt placements and revisions; - Social history: Smoking status: Patient uses tobacco products, light tobacco smoker. No barriers to communication noted, The patient speaks fluent [place] Islander. - Family history: Not pertinent. - : The pt / caregiver states he / she is on anticoagulants: Plavix. Home medication list is obtained from the patient. - Exposure Risk Screening:: None identified. Vital Signs: 03/28 23:42 BP 179 / 81; Pulse 82; Resp 18; Pulse Ox 97% on R/A; Weight 100.24 kg / 220.99 lbs; mcp Height 6 ft. 3 in. (190.50 cm); Pain 8/10; 23:51 Temp 97.3(O); mcp 03/29 01:11 BP 187 / 79 (auto/); js15 01:12 Pulse 80 MON; Pulse Ox 97% ; js15 01:41 BP 186 / 79 (auto/); js15 01:41 Pulse 80 MON; Pulse Ox 97% ; js15 02:12 BP 188 / 87; Pulse 82; Resp 18; Temp 98.4(O); Pulse Ox 94% on R/A; js15 03/28 23:42 Body Mass Index 27.62 (100.24 kg, 190.50 cm) mcp MDM: 03/28 23:52 ECG WITH READING ER PHYS+CARDIAG ordered. EDMS 23:56 Chest, 2 View (pa\E\lat) Ordered. EDMS 03/29 00:28 Financial registration complete. [facility] 00:45 Dextromethorphan-Guaifenesin Liquid 10 mg-100 mg/5 mL 5 ml PO once ordered. cs11 00:45 Albuterol-Ipratropium 3 ml Inhalation once ordered. cs11 00:45 Call Respiratory ordered. cs11 00:45 IV Saline Lock ordered. cs11 00:45 Dexamethasone 12 mg IV at bolus once ordered. cs11 00:46 Call Respiratory complete. ml3 01:26 [facility] Payment Agreement was scanned into [employer] and attached to record. [facility] 11:00 T-Sheet-- Draft Copy was scanned into [employer] and attached to record. gb 11:01 ECG/EKG was scanned into [employer] and attached to record. gb Administered Medications: 00:49 Drug: Albuterol-Ipratropium 3 ml [ipratropium-albuterol 0.5 mg-3 mg(2.5 mg base)/3 mL bb3 nebulization soln (3 mL)] Route: Inhalation; 00:55 Follow up: lung sounds increased throughout. Lung sounds with scattered crackles in bb3 posterior 00:50 CANCELLED (Duplicate Order): Albuterol-Ipratropium 3 ml Inhalation once bb3 01:10 Drug: Dextromethorphan-Guaifenesin 5 ml [dextromethorphan-guaifenesin 10 mg-100 mg/5 mL js15 oral liquid (5 mL)] Route: PO; 01:10 Drug: Dexamethasone 12 mg [dexamethasone 4 mg/mL injection solution] Route: IV; Rate: js15 bolus; Site: right forearm; 02:02 Follow up: Response: No Adverse Reaction js15 Signatures: Dispatcher [employer] Lila Dumont, RN RN [facility] Massiel Enriquez, Napoleon Reg gb Roger, Trae, Fixed Income Trading Vice President Unit ml3 Ac Penny bb3 Kristopher Souza, DO 11 Anna Diaz [facility] Corina Pardo RN RN js15 The chart was reviewed and I authenticate all verbal orders and agree with the evaluation and treatment provided.Corrections: (The following items were deleted from the chart) 00:50 00:44 Albuterol-Ipratropium 3 ml Inhalation once ordered. bb3 bb3 Attachments: 01:26 [facility] Payment Agreement [facility] 11:00 T-Sheet-- Draft Copy 11:01 ECG/EKG Chart Complete MTDD
--- NOTE | 2016-03-31 03:21 | EDDOCDS ---
Physician Documentation [facility] Name: Antonio Rivera Age: 55 yrs Sex: Male : 1960 Arrival Date: 03/28/2016 Time: 23:35 Bed 5 Private MD: URBANO WOODWARD Disposition: 03/29/16 02:00 Discharged to Home/Self Care. Impression: Chronic obstructive pulmonary disease with (acute) exacerbation. - Condition is Stable. - Prescriptions for Prednisone 20 mg Oral Tablet - take 3 tablets by ORAL route once daily for 4 days; 12 tablet. - Medication Reconciliation, Local Pharmacy Hours form. - Follow up: Private Physician; When: Call to arrange an appointment; Reason: Recheck today's complaints. - Problem is chronic. - Symptoms have improved. Historical: - Allergies: mushrooms; Tape; - Home Meds: 1. amlodipine 5 mg Oral tab 1 tab once daily 2. aspirin 325 mg Oral tab 1 tab once daily 3. atorvastatin 40 mg oral tab 1 tab once daily 4. calcium acetate 667 mg oral cap 4 caps 3 times per day 5. clopidogrel 75 mg oral tab 1 tab once daily 6. furosemide 20 mg Oral tab 4 tab once daily 7. Humalog Pen sliding scale Sub-Q three times a day 8. isosorbide mononitrate 60 mg Oral Tb24 1 tab once daily 9. Levemir FlexTouch 100 unit/mL (3 mL) subcutaneous inpn 12 unit daily 10. Lopressor 50 mg Oral tab 2 times per day 11. losartan 100 mg oral tab 1 tab once daily 12. minoxidil 2.5 mg Oral tab 2 tabs 2 times per day 13. [place] 3 Fish Oil 900-1,400 mg oral cpDR twice a day 14. Sensipar 30 mg oral tab 1 tab once daily 15. Vitamin D Oral 2000 unit daily 16. Vitamin D3 4,000 unit oral cap daily 17. Flovent 110 mcg/actuation Inhl aero 2 puffs 2 times per day 18. albuterol sulfate 90 mcg/actuation Inhl HFAA 2 puffs every 4-6 hours - PMHx: Asthma; CHF; COPD; Diabetes - IDDM: controlled; GERD; Heart Disease; Renal Failure with Dialysis; Stroke; - PSHx: Appendectomy; Tonsillectomy; Adenoidectomy; Open heart surgery; Cardiac stents; toe removed from right foot; shunt placements and revisions; - Social history: Smoking status: Patient uses tobacco products, light tobacco smoker. No barriers to communication noted, The patient speaks fluent Bermudian. - Family history: Not pertinent. - : The pt / caregiver states he / she is on anticoagulants: Plavix. Home medication list is obtained from the patient. - Exposure Risk Screening:: None identified. Vital Signs: 03/28 23:42 BP 179 / 81; Pulse 82; Resp 18; Pulse Ox 97% on R/A; Weight 100.24 kg / 220.99 lbs; mcp Height 6 ft. 3 in. (190.50 cm); Pain 8/10; 23:51 Temp 97.3(O); mcp 03/29 01:11 BP 187 / 79 (auto/); js15 01:12 Pulse 80 MON; Pulse Ox 97% ; js15 01:41 BP 186 / 79 (auto/); js15 01:41 Pulse 80 MON; Pulse Ox 97% ; js15 02:12 BP 188 / 87; Pulse 82; Resp 18; Temp 98.4(O); Pulse Ox 94% on R/A; js15 03/28 23:42 Body Mass Index 27.62 (100.24 kg, 190.50 cm) mcp MDM: 03/28 23:52 ECG WITH READING ER PHYS+CARDIAG ordered. EDMS 23:56 Chest, 2 View (pa\E\lat) Ordered. EDMS 03/29 00:28 Financial registration complete. [facility] 00:45 Dextromethorphan-Guaifenesin Liquid 10 mg-100 mg/5 mL 5 ml PO once ordered. cs11 00:45 Albuterol-Ipratropium 3 ml Inhalation once ordered. cs11 00:45 Call Respiratory ordered. cs11 00:45 IV Saline Lock ordered. cs11 00:45 Dexamethasone 12 mg IV at bolus once ordered. cs11 00:46 Call Respiratory complete. ml3 01:26 [facility] Payment Agreement was scanned into [employer] and attached to record. [facility] 11:00 T-Sheet-- Draft Copy was scanned into [employer] and attached to record. gb 11:01 ECG/EKG was scanned into [employer] and attached to record. gb Administered Medications: 00:49 Drug: Albuterol-Ipratropium 3 ml [ipratropium-albuterol 0.5 mg-3 mg(2.5 mg base)/3 mL bb3 nebulization soln (3 mL)] Route: Inhalation; 00:55 Follow up: lung sounds increased throughout. Lung sounds with scattered crackles in bb3 posterior 00:50 CANCELLED (Duplicate Order): Albuterol-Ipratropium 3 ml Inhalation once bb3 01:10 Drug: Dextromethorphan-Guaifenesin 5 ml [dextromethorphan-guaifenesin 10 mg-100 mg/5 mL js15 oral liquid (5 mL)] Route: PO; 01:10 Drug: Dexamethasone 12 mg [dexamethasone 4 mg/mL injection solution] Route: IV; Rate: js15 bolus; Site: right forearm; 02:02 Follow up: Response: No Adverse Reaction js15 Signatures: Dispatcher [employer] Lila Dumont, RN RN [facility] Massiel Enriquez, Napoleon Reg gb Roger, Trae, Control Systems Developer Unit ml3 Ac Penny bb3 Kristopher Souza, DO 11 Anna Diaz [facility] Corina Pardo RN RN js15 The chart was reviewed and I authenticate all verbal orders and agree with the evaluation and treatment provided.Corrections: (The following items were deleted from the chart) 00:50 00:44 Albuterol-Ipratropium 3 ml Inhalation once ordered. bb3 bb3 Attachments: 01:26 [facility] Payment Agreement [facility] 11:00 T-Sheet-- Draft Copy 11:01 ECG/EKG Chart Complete MTDD
--- NOTE | 2016-04-01 11:10 | EDDOCDS ---
Physician Documentation [facility] Name: Antonio Rivera Age: 55 yrs Sex: Male : 1960 Arrival Date: 03/28/2016 Time: 23:35 Bed 5 Private MD: URBANO WOODWARD Disposition: 03/29/16 02:00 Discharged to Home/Self Care. Impression: Chronic obstructive pulmonary disease with (acute) exacerbation. - Condition is Stable. - Prescriptions for Prednisone 20 mg Oral Tablet - take 3 tablets by ORAL route once daily for 4 days; 12 tablet. - Medication Reconciliation, Local Pharmacy Hours form. - Follow up: Private Physician; When: Call to arrange an appointment; Reason: Recheck today's complaints. - Problem is chronic. - Symptoms have improved. Historical: - Allergies: mushrooms; Tape; - Home Meds: 1. amlodipine 5 mg Oral tab 1 tab once daily 2. aspirin 325 mg Oral tab 1 tab once daily 3. atorvastatin 40 mg oral tab 1 tab once daily 4. calcium acetate 667 mg oral cap 4 caps 3 times per day 5. clopidogrel 75 mg oral tab 1 tab once daily 6. furosemide 20 mg Oral tab 4 tab once daily 7. Humalog Pen sliding scale Sub-Q three times a day 8. isosorbide mononitrate 60 mg Oral Tb24 1 tab once daily 9. Levemir FlexTouch 100 unit/mL (3 mL) subcutaneous inpn 12 unit daily 10. Lopressor 50 mg Oral tab 2 times per day 11. losartan 100 mg oral tab 1 tab once daily 12. minoxidil 2.5 mg Oral tab 2 tabs 2 times per day 13. [place] 3 Fish Oil 900-1,400 mg oral cpDR twice a day 14. Sensipar 30 mg oral tab 1 tab once daily 15. Vitamin D Oral 2000 unit daily 16. Vitamin D3 4,000 unit oral cap daily 17. Flovent 110 mcg/actuation Inhl aero 2 puffs 2 times per day 18. albuterol sulfate 90 mcg/actuation Inhl HFAA 2 puffs every 4-6 hours - PMHx: Asthma; CHF; COPD; Diabetes - IDDM: controlled; GERD; Heart Disease; Renal Failure with Dialysis; Stroke; - PSHx: Appendectomy; Tonsillectomy; Adenoidectomy; Open heart surgery; Cardiac stents; toe removed from right foot; shunt placements and revisions; - Social history: Smoking status: Patient uses tobacco products, light tobacco smoker. No barriers to communication noted, The patient speaks fluent [place] Rican. - Family history: Not pertinent. - : The pt / caregiver states he / she is on anticoagulants: Plavix. Home medication list is obtained from the patient. - Exposure Risk Screening:: None identified. Vital Signs: 03/28 23:42 BP 179 / 81; Pulse 82; Resp 18; Pulse Ox 97% on R/A; Weight 100.24 kg / 220.99 lbs; mcp Height 6 ft. 3 in. (190.50 cm); Pain 8/10; 23:51 Temp 97.3(O); mcp 03/29 01:11 BP 187 / 79 (auto/); js15 01:12 Pulse 80 MON; Pulse Ox 97% ; js15 01:41 BP 186 / 79 (auto/); js15 01:41 Pulse 80 MON; Pulse Ox 97% ; js15 02:12 BP 188 / 87; Pulse 82; Resp 18; Temp 98.4(O); Pulse Ox 94% on R/A; js15 03/28 23:42 Body Mass Index 27.62 (100.24 kg, 190.50 cm) mcp MDM: 03/28 23:52 ECG WITH READING ER PHYS+CARDIAG ordered. EDMS 23:56 Chest, 2 View (pa\E\lat) Ordered. EDMS 03/29 00:28 Financial registration complete. [facility] 00:45 Dextromethorphan-Guaifenesin Liquid 10 mg-100 mg/5 mL 5 ml PO once ordered. cs11 00:45 Albuterol-Ipratropium 3 ml Inhalation once ordered. cs11 00:45 Call Respiratory ordered. cs11 00:45 IV Saline Lock ordered. cs11 00:45 Dexamethasone 12 mg IV at bolus once ordered. cs11 00:46 Call Respiratory complete. ml3 01:26 [facility] Payment Agreement was scanned into [employer] and attached to record. [facility] 11:00 T-Sheet-- Draft Copy was scanned into [employer] and attached to record. gb 11:01 ECG/EKG was scanned into [employer] and attached to record. gb Administered Medications: 00:49 Drug: Albuterol-Ipratropium 3 ml [ipratropium-albuterol 0.5 mg-3 mg(2.5 mg base)/3 mL bb3 nebulization soln (3 mL)] Route: Inhalation; 00:55 Follow up: lung sounds increased throughout. Lung sounds with scattered crackles in bb3 posterior 00:50 CANCELLED (Duplicate Order): Albuterol-Ipratropium 3 ml Inhalation once bb3 01:10 Drug: Dextromethorphan-Guaifenesin 5 ml [dextromethorphan-guaifenesin 10 mg-100 mg/5 mL js15 oral liquid (5 mL)] Route: PO; 01:10 Drug: Dexamethasone 12 mg [dexamethasone 4 mg/mL injection solution] Route: IV; Rate: js15 bolus; Site: right forearm; 02:02 Follow up: Response: No Adverse Reaction js15 Signatures: Dispatcher [employer] Lila Dumont, RN RN [facility] Massiel Enriquez, Napoleon Reg gb Roger, Trae, Sheeter Waxer Operator Unit ml3 Ac Penny bb3 Kristopher Souza, DO 11 Anna Diaz [facility] Corina Pardo RN RN js15 The chart was reviewed and I authenticate all verbal orders and agree with the evaluation and treatment provided.Corrections: (The following items were deleted from the chart) 00:50 00:44 Albuterol-Ipratropium 3 ml Inhalation once ordered. bb3 bb3 Attachments: 01:26 [facility] Payment Agreement [facility] 11:00 T-Sheet-- Draft Copy 11:01 ECG/EKG MTDD
--- NOTE | 2016-04-01 11:10 | EDDOCDS ---
Nurse's Notes [facility] [place] Name: Antonio Rivera Age: 55 yrs Sex: Male : 1960 Arrival Date: 03/28/2016 Time: 23:35 Bed 5 Private MD: URBANO WOODWARD Diagnosis: Chronic obstructive pulmonary disease with (acute) exacerbation Presentation: 03/28 23:43 Presenting complaint: Patient states: Left sided chest pain since 1000 this am--worse mcp this am, now pain 8/10. Was given 324mg ASA by EMS, refused IV start. Adult Sepsis Screening: The patient does not have new or worsening altered mentation. Patient's respiratory rate is less than 22. Systolic blood pressure is greater than 100. Patient has a qSOFA score of 0- Negative Sepsis Screen. Suicide/Homicide risk assessment- the patient denies having any suicidal and/or homicidal ideations and does not present with any other emotional, behavioral or mental health complaints. Status: Patient is not a child protective services social worker or dependent. Transition of care: patient was not received from another setting of care. 23:43 Acuity: [place] Level 3 [facility] 23:43 Method Of Arrival: Ambulance [facility] Triage Assessment: 23:50 General: Appears uncomfortable, Behavior is cooperative. Pain: Location: anterior mcp aspect of left upper chest Pain currently is 8 out of 10 on a pain scale. HIV screening NA for this visit Offered previously. Neurological: No deficits noted. Respiratory: Airway is patent. Derm: Skin is pink, warm & dry. Historical: - Allergies: mushrooms; Tape; - Home Meds: 1. amlodipine 5 mg Oral tab 1 tab once daily 2. aspirin 325 mg Oral tab 1 tab once daily 3. atorvastatin 40 mg oral tab 1 tab once daily 4. calcium acetate 667 mg oral cap 4 caps 3 times per day 5. clopidogrel 75 mg oral tab 1 tab once daily 6. furosemide 20 mg Oral tab 4 tab once daily 7. Humalog Pen sliding scale Sub-Q three times a day 8. isosorbide mononitrate 60 mg Oral Tb24 1 tab once daily 9. Levemir FlexTouch 100 unit/mL (3 mL) subcutaneous inpn 12 unit daily 10. Lopressor 50 mg Oral tab 2 times per day 11. losartan 100 mg oral tab 1 tab once daily 12. minoxidil 2.5 mg Oral tab 2 tabs 2 times per day 13. [place] 3 Fish Oil 900-1,400 mg oral cpDR twice a day 14. Sensipar 30 mg oral tab 1 tab once daily 15. Vitamin D Oral 2000 unit daily 16. Vitamin D3 4,000 unit oral cap daily 17. Flovent 110 mcg/actuation Inhl aero 2 puffs 2 times per day 18. albuterol sulfate 90 mcg/actuation Inhl HFAA 2 puffs every 4-6 hours - PMHx: Asthma; CHF; COPD; Diabetes - IDDM: controlled; GERD; Heart Disease; Renal Failure with Dialysis; Stroke; - PSHx: Appendectomy; Tonsillectomy; Adenoidectomy; Open heart surgery; Cardiac stents; toe removed from right foot; shunt placements and revisions; - Social history: Smoking status: Patient uses tobacco products, light tobacco smoker. No barriers to communication noted, The patient speaks fluent Vincentian. - Family history: Not pertinent. - : The pt / caregiver states he / she is on anticoagulants: Plavix. Home medication list is obtained from the patient. - Exposure Risk Screening:: None identified. Screenin/21 00:30 Screening information is obtained from the patient. Fall risk: No risks identified. js15 Assistance ADL's: requires no assistance with activities of daily living. Abuse/DV Screen: The patient / caregiver reports he/she is: not in a situation that causes fear, pain or injury. Nutritional screening: No deficits noted. Advance Directives: There is no active DNR order. home support is adequate. Assessment: 00:30 General: Appears in no apparent distress, Behavior is appropriate for age, cooperative. js15 Neurological: Level of Consciousness is awake, alert, obeys commands, Oriented to person, place, time. Respiratory: Airway is patent Respiratory effort is even, unlabored, Respiratory pattern is regular, symmetrical. Derm: Skin is pink, warm & dry. 01:30 Reassessment: Patient appears in no apparent distress at this time. Pt resting on js15 stretcher, talking to family at bedside and watching tv; respirations even and unlabored; skin pink, warm, dry; cardiac rhythm is NSR. Vital Signs: 03/28 23:42 BP 179 / 81; Pulse 82; Resp 18; Pulse Ox 97% on R/A; Weight 100.24 kg; Height 6 ft. 3 mcp in. (190.50 cm); Pain 8/10; 23:51 Temp 97.3(O); [facility] 03/29 01:11 BP 187 / 79 (auto/); js15 01:12 Pulse 80 MON; Pulse Ox 97% ; js15 01:41 BP 186 / 79 (auto/); js15 01:41 Pulse 80 MON; Pulse Ox 97% ; js15 02:12 BP 188 / 87; Pulse 82; Resp 18; Temp 98.4(O); Pulse Ox 94% on R/A; js15 03/28 23:42 Body Mass Index 27.62 (100.24 kg, 190.50 cm) [facility] Vitals: 03/28 23:42 Log In Time N/A - ambulance arrival. [facility] ED Course: 23:36 Patient visited by Trae Duran Professor Of German. ml3 23:36 Patient moved to Waiting ml3 23:37 URBANO WOODWARD is Private Physician. ml3 23:37 Patient moved to 5 ml3 23:44 Triage Initiated [facility] 23:51 Patient visited by Lila Montanez RN. [facility] 23:54 Kristopher Patel DO is Attending Physician. [facility] 23:54 Patient visited by Kristopher Patel DO. [facility] 03/29 00:01 EKG done. (by ED staff). Reviewed by Kristopher Patel DO. [facility] 01:00 Patient visited by Corina Pardo RN. 15 01:00 The patient / caregiver is instructed regarding the plan of care and ED course. js15 01:00 Inserted saline lock: 20 gauge in right forearm The patient tolerated the procedure js15 well. 01:26 [facility] Payment Agreement was scanned into [employer] and attached to record. [facility] 02:02 No procedures done that require assistance. js15 02:13 Discontinued IV lock intact, bleeding controlled, pressure dressing applied, No js15 redness/swelling at site. 08:42 EKG-ADULT Returned. EDMS 11:00 T-Sheet-- Draft Copy was scanned into [employer] and attached to record. gb 11:01 ECG/EKG was scanned into [employer] and attached to record. gb 11:34 Chest, 2 View (pa\E\lat) Returned. EDMS Administered Medications: 00:49 Drug: Albuterol-Ipratropium 3 ml [ipratropium-albuterol 0.5 mg-3 mg(2.5 mg base)/3 mL bb3 nebulization soln (3 mL)] Route: Inhalation; 00:55 Follow up: lung sounds increased throughout. Lung sounds with scattered crackles in bb3 posterior 00:50 CANCELLED (Duplicate Order): Albuterol-Ipratropium 3 ml Inhalation once bb3 01:10 Drug: Dextromethorphan-Guaifenesin 5 ml [dextromethorphan-guaifenesin 10 mg-100 mg/5 mL js15 oral liquid (5 mL)] Route: PO; 01:10 Drug: Dexamethasone 12 mg [dexamethasone 4 mg/mL injection solution] Route: IV; Rate: js15 bolus; Site: right forearm; 02:02 Follow up: Response: No Adverse Reaction js15 Intake: RT: 00:46 Respiratory: Respiratory effort is even, unlabored, Respiratory pattern is regular bb3 symmetrical, diminished fine scattered wheezes throughout. Pt has a strong hacking non productive cough. 00:48 Initial Med Neb Given as ordered Patient was instructed and evaluated on procedure. bb3 00:53 Respiratory: lung sounds increased throughout. Lung sounds with scattered crackles in bb3 posterior. Order Results: Radiology Order: EKG-ADULT Test: EKG-ADULT REASON FOR EXAMINATION: Chest Pain; Stationary ECG Study; [facility] - ED; ; Test Date: 2016-03-29; Pat Name: ANTONIO RIVERA Department:; Room: -; Gender: M Forensic Analyst: ; : 1960 Requested By: KRISTOPHER PATEL; Order Number: [id number] Reading MD: Elissa Medellin; Measurements; Intervals [place]; Rate: 79 P: 68; VT: 197 QRS: 197; QRSD: 148 T: 27; QT: 398; QTc: 459; Interpretive Statements; SINUS RHYTHM; INDETERMINATE AXIS; RIGHT BUNDLE BRANCH BLOCK AND POSSIBLE RIGHT VENTRICULAR HYPERTROPHY; ST DEPRESSION, CONSIDER SUBENDOCARDIAL INJURY; SIMILAR 03/24/16 17:22; Electronically Signed On 03-29-2016 8:15:35 EST by Elissa Medellin; Radiology Order: Chest, 2 View (pa\E\lat) Test: Chest, 2 View (pa\E\lat) REASON FOR EXAMINATION: Cough; Chest x-ray: Two views.; ; History: Cough.; ; Comparison chest x-ray March 24, 2016.; ; Findings: There is widening of the superior mediastinum in the region of the; right paratracheal region. This may be dilated azygos vein. It is a bit more; prominent than on March 02, 2016. Cardiomegaly is observed. There is also; some fullness behind the left heart border in the left mediastinal contour and in; the azygo-esophageal line, question upper abdominal and lower thoracic or perhaps; retrocrural lymphadenopathy. The pleural angles are sharp. There are a few; Mihsa-B lines in the right base. No pleural effusion is seen. No infiltrate is; noted.; ; Impression:; ; Cardiomegaly. Dilation of the azygos vein versus right paratracheal; lymphadenopathy. Question retrocrural or upper abdominal lymphadenopathy behind; the heart. Consider abdominal CT scanning.; ; ; Signed by; Yeison Krishnan MD 03/29/2016 01:13 P; Outcome: 02:00 Discharge ordered by Provider. cs11 02:13 Discharge Assessment: Patient awake, alert and oriented x 3. No cognitive and/or js15 functional deficits noted. Patient verbalized understanding of disposition instructions. patient administered narcotics - no. The following High Risk Discharge criteria are identified: None. Discharged to home ambulatory, with family. Condition: unchanged. Discharge instructions given to patient, Instructed on discharge instructions, follow up and referral plans. medication usage, Demonstrated understanding of instructions, medications, Pt was receptive of discharge instructions/ teaching. Prescriptions given X 1. No special radiology studies were completed. Property sent home with patient. 02:20 Patient left the ED. js15 Addendum: 04/01/2016 11:08 Narrative: Final x-ray report reviewed with Dr. Olivia and report to be faxed to PCP. jesse Signatures: Dispatcher [employer] Lynne Jones RN RN Lila Del Real RN RN mcp Barnhardt, Gloria, Napoleon Reg Trae Campbell, Professor Of German Unit ml3 Ac Penny bb3 Kristopher Patel, DO cs11 Anna Diaz Corina Shields RN RN js15 MTDD
--- NOTE | 2016-04-01 11:10 | EDDOCDS ---
Physician Documentation [facility] Name: Antonio Rivera Age: 55 yrs Sex: Male : 1960 Arrival Date: 03/28/2016 Time: 23:35 Bed 5 Private MD: URBANO WOODWARD Disposition: 03/29/16 02:00 Discharged to Home/Self Care. Impression: Chronic obstructive pulmonary disease with (acute) exacerbation. - Condition is Stable. - Prescriptions for Prednisone 20 mg Oral Tablet - take 3 tablets by ORAL route once daily for 4 days; 12 tablet. - Medication Reconciliation, Local Pharmacy Hours form. - Follow up: Private Physician; When: Call to arrange an appointment; Reason: Recheck today's complaints. - Problem is chronic. - Symptoms have improved. Historical: - Allergies: mushrooms; Tape; - Home Meds: 1. amlodipine 5 mg Oral tab 1 tab once daily 2. aspirin 325 mg Oral tab 1 tab once daily 3. atorvastatin 40 mg oral tab 1 tab once daily 4. calcium acetate 667 mg oral cap 4 caps 3 times per day 5. clopidogrel 75 mg oral tab 1 tab once daily 6. furosemide 20 mg Oral tab 4 tab once daily 7. Humalog Pen sliding scale Sub-Q three times a day 8. isosorbide mononitrate 60 mg Oral Tb24 1 tab once daily 9. Levemir FlexTouch 100 unit/mL (3 mL) subcutaneous inpn 12 unit daily 10. Lopressor 50 mg Oral tab 2 times per day 11. losartan 100 mg oral tab 1 tab once daily 12. minoxidil 2.5 mg Oral tab 2 tabs 2 times per day 13. [place] 3 Fish Oil 900-1,400 mg oral cpDR twice a day 14. Sensipar 30 mg oral tab 1 tab once daily 15. Vitamin D Oral 2000 unit daily 16. Vitamin D3 4,000 unit oral cap daily 17. Flovent 110 mcg/actuation Inhl aero 2 puffs 2 times per day 18. albuterol sulfate 90 mcg/actuation Inhl HFAA 2 puffs every 4-6 hours - PMHx: Asthma; CHF; COPD; Diabetes - IDDM: controlled; GERD; Heart Disease; Renal Failure with Dialysis; Stroke; - PSHx: Appendectomy; Tonsillectomy; Adenoidectomy; Open heart surgery; Cardiac stents; toe removed from right foot; shunt placements and revisions; - Social history: Smoking status: Patient uses tobacco products, light tobacco smoker. No barriers to communication noted, The patient speaks fluent [place]oran. - Family history: Not pertinent. - : The pt / caregiver states he / she is on anticoagulants: Plavix. Home medication list is obtained from the patient. - Exposure Risk Screening:: None identified. Vital Signs: 03/28 23:42 BP 179 / 81; Pulse 82; Resp 18; Pulse Ox 97% on R/A; Weight 100.24 kg / 220.99 lbs; mcp Height 6 ft. 3 in. (190.50 cm); Pain 8/10; 23:51 Temp 97.3(O); mcp 03/29 01:11 BP 187 / 79 (auto/); js15 01:12 Pulse 80 MON; Pulse Ox 97% ; js15 01:41 BP 186 / 79 (auto/); js15 01:41 Pulse 80 MON; Pulse Ox 97% ; js15 02:12 BP 188 / 87; Pulse 82; Resp 18; Temp 98.4(O); Pulse Ox 94% on R/A; js15 03/28 23:42 Body Mass Index 27.62 (100.24 kg, 190.50 cm) mcp MDM: 03/28 23:52 ECG WITH READING ER PHYS+CARDIAG ordered. EDMS 23:56 Chest, 2 View (pa\E\lat) Ordered. EDMS 03/29 00:28 Financial registration complete. [facility] 00:45 Dextromethorphan-Guaifenesin Liquid 10 mg-100 mg/5 mL 5 ml PO once ordered. cs11 00:45 Albuterol-Ipratropium 3 ml Inhalation once ordered. cs11 00:45 Call Respiratory ordered. cs11 00:45 IV Saline Lock ordered. cs11 00:45 Dexamethasone 12 mg IV at bolus once ordered. cs11 00:46 Call Respiratory complete. ml3 01:26 [facility] Payment Agreement was scanned into [employer] and attached to record. [facility] 11:00 T-Sheet-- Draft Copy was scanned into [employer] and attached to record. gb 11:01 ECG/EKG was scanned into [employer] and attached to record. gb Administered Medications: 00:49 Drug: Albuterol-Ipratropium 3 ml [ipratropium-albuterol 0.5 mg-3 mg(2.5 mg base)/3 mL bb3 nebulization soln (3 mL)] Route: Inhalation; 00:55 Follow up: lung sounds increased throughout. Lung sounds with scattered crackles in bb3 posterior 00:50 CANCELLED (Duplicate Order): Albuterol-Ipratropium 3 ml Inhalation once bb3 01:10 Drug: Dextromethorphan-Guaifenesin 5 ml [dextromethorphan-guaifenesin 10 mg-100 mg/5 mL js15 oral liquid (5 mL)] Route: PO; 01:10 Drug: Dexamethasone 12 mg [dexamethasone 4 mg/mL injection solution] Route: IV; Rate: js15 bolus; Site: right forearm; 02:02 Follow up: Response: No Adverse Reaction js15 Signatures: Dispatcher [employer] Lila Dumont, RN RN [facility] Massiel Enriquez, Napoleon Reg gb Roger, Trae, Tape Sewing Machine Operator Unit ml3 Ac Penny bb3 Kristopher Souza, DO 11 Anna Diaz [facility] Corina Pardo RN RN js15 The chart was reviewed and I authenticate all verbal orders and agree with the evaluation and treatment provided.Corrections: (The following items were deleted from the chart) 00:50 00:44 Albuterol-Ipratropium 3 ml Inhalation once ordered. bb3 bb3 Attachments: 01:26 [facility] Payment Agreement [facility] 11:00 T-Sheet-- Draft Copy 11:01 ECG/EKG MTDD
--- NOTE | 2016-04-01 11:11 | EDDOCDS ---
Nurse's Notes [facility] Name: Antonio Rivera Age: 55 yrs Sex: Male : 1960 Arrival Date: 03/28/2016 Time: 23:35 Bed 5 Private MD: URBANO WOODWARD Diagnosis: Chronic obstructive pulmonary disease with (acute) exacerbation Presentation: 03/28 23:43 Presenting complaint: Patient states: Left sided chest pain since 1000 this am--worse mcp this am, now pain 8/10. Was given 324mg ASA by EMS, refused IV start. Adult Sepsis Screening: The patient does not have new or worsening altered mentation. Patient's respiratory rate is less than 22. Systolic blood pressure is greater than 100. Patient has a qSOFA score of 0- Negative Sepsis Screen. Suicide/Homicide risk assessment- the patient denies having any suicidal and/or homicidal ideations and does not present with any other emotional, behavioral or mental health complaints. Status: Patient is not a access services assistant or dependent. Transition of care: patient was not received from another setting of care. 23:43 Acuity: [place] Level 3 [facility] 23:43 Method Of Arrival: Ambulance [facility] Triage Assessment: 23:50 General: Appears uncomfortable, Behavior is cooperative. Pain: Location: anterior mcp aspect of left upper chest Pain currently is 8 out of 10 on a pain scale. HIV screening NA for this visit Offered previously. Neurological: No deficits noted. Respiratory: Airway is patent. Derm: Skin is pink, warm & dry. Historical: - Allergies: mushrooms; Tape; - Home Meds: 1. amlodipine 5 mg Oral tab 1 tab once daily 2. aspirin 325 mg Oral tab 1 tab once daily 3. atorvastatin 40 mg oral tab 1 tab once daily 4. calcium acetate 667 mg oral cap 4 caps 3 times per day 5. clopidogrel 75 mg oral tab 1 tab once daily 6. furosemide 20 mg Oral tab 4 tab once daily 7. Humalog Pen sliding scale Sub-Q three times a day 8. isosorbide mononitrate 60 mg Oral Tb24 1 tab once daily 9. Levemir FlexTouch 100 unit/mL (3 mL) subcutaneous inpn 12 unit daily 10. Lopressor 50 mg Oral tab 2 times per day 11. losartan 100 mg oral tab 1 tab once daily 12. minoxidil 2.5 mg Oral tab 2 tabs 2 times per day 13. [place] 3 Fish Oil 900-1,400 mg oral cpDR twice a day 14. Sensipar 30 mg oral tab 1 tab once daily 15. Vitamin D Oral 2000 unit daily 16. Vitamin D3 4,000 unit oral cap daily 17. Flovent 110 mcg/actuation Inhl aero 2 puffs 2 times per day 18. albuterol sulfate 90 mcg/actuation Inhl HFAA 2 puffs every 4-6 hours - PMHx: Asthma; CHF; COPD; Diabetes - IDDM: controlled; GERD; Heart Disease; Renal Failure with Dialysis; Stroke; - PSHx: Appendectomy; Tonsillectomy; Adenoidectomy; Open heart surgery; Cardiac stents; toe removed from right foot; shunt placements and revisions; - Social history: Smoking status: Patient uses tobacco products, light tobacco smoker. No barriers to communication noted, The patient speaks fluent Ugandan. - Family history: Not pertinent. - : The pt / caregiver states he / she is on anticoagulants: Plavix. Home medication list is obtained from the patient. - Exposure Risk Screening:: None identified. Screenin/21 00:30 Screening information is obtained from the patient. Fall risk: No risks identified. js15 Assistance ADL's: requires no assistance with activities of daily living. Abuse/DV Screen: The patient / caregiver reports he/she is: not in a situation that causes fear, pain or injury. Nutritional screening: No deficits noted. Advance Directives: There is no active DNR order. home support is adequate. Assessment: 00:30 General: Appears in no apparent distress, Behavior is appropriate for age, cooperative. js15 Neurological: Level of Consciousness is awake, alert, obeys commands, Oriented to person, place, time. Respiratory: Airway is patent Respiratory effort is even, unlabored, Respiratory pattern is regular, symmetrical. Derm: Skin is pink, warm & dry. 01:30 Reassessment: Patient appears in no apparent distress at this time. Pt resting on js15 stretcher, talking to family at bedside and watching tv; respirations even and unlabored; skin pink, warm, dry; cardiac rhythm is NSR. Vital Signs: 03/28 23:42 BP 179 / 81; Pulse 82; Resp 18; Pulse Ox 97% on R/A; Weight 100.24 kg; Height 6 ft. 3 mcp in. (190.50 cm); Pain 8/10; 23:51 Temp 97.3(O); [facility] 03/29 01:11 BP 187 / 79 (auto/); js15 01:12 Pulse 80 MON; Pulse Ox 97% ; js15 01:41 BP 186 / 79 (auto/); js15 01:41 Pulse 80 MON; Pulse Ox 97% ; js15 02:12 BP 188 / 87; Pulse 82; Resp 18; Temp 98.4(O); Pulse Ox 94% on R/A; js15 03/28 23:42 Body Mass Index 27.62 (100.24 kg, 190.50 cm) [facility] Vitals: 03/28 23:42 Log In Time N/A - ambulance arrival. [facility] ED Course: 23:36 Patient visited by Trae Duran Cement Cutter. ml3 23:36 Patient moved to Waiting ml3 23:37 URBANO WOODWARD is Private Physician. ml3 23:37 Patient moved to 5 ml3 23:44 Triage Initiated [facility] 23:51 Patient visited by Lila Montanez RN. [facility] 23:54 Kristopher Patel DO is Attending Physician. [facility] 23:54 Patient visited by Kristopher Patel DO. [facility] 03/29 00:01 EKG done. (by ED staff). Reviewed by Kristopher Patel DO. [facility] 01:00 Patient visited by Corina Pardo RN. 15 01:00 The patient / caregiver is instructed regarding the plan of care and ED course. js15 01:00 Inserted saline lock: 20 gauge in right forearm The patient tolerated the procedure js15 well. 01:26 [facility] Payment Agreement was scanned into [employer] and attached to record. [facility] 02:02 No procedures done that require assistance. js15 02:13 Discontinued IV lock intact, bleeding controlled, pressure dressing applied, No js15 redness/swelling at site. 08:42 EKG-ADULT Returned. EDMS 11:00 T-Sheet-- Draft Copy was scanned into [employer] and attached to record. gb 11:01 ECG/EKG was scanned into [employer] and attached to record. gb 11:34 Chest, 2 View (pa\E\lat) Returned. EDMS Administered Medications: 00:49 Drug: Albuterol-Ipratropium 3 ml [ipratropium-albuterol 0.5 mg-3 mg(2.5 mg base)/3 mL bb3 nebulization soln (3 mL)] Route: Inhalation; 00:55 Follow up: lung sounds increased throughout. Lung sounds with scattered crackles in bb3 posterior 00:50 CANCELLED (Duplicate Order): Albuterol-Ipratropium 3 ml Inhalation once bb3 01:10 Drug: Dextromethorphan-Guaifenesin 5 ml [dextromethorphan-guaifenesin 10 mg-100 mg/5 mL js15 oral liquid (5 mL)] Route: PO; 01:10 Drug: Dexamethasone 12 mg [dexamethasone 4 mg/mL injection solution] Route: IV; Rate: js15 bolus; Site: right forearm; 02:02 Follow up: Response: No Adverse Reaction js15 Intake: RT: 00:46 Respiratory: Respiratory effort is even, unlabored, Respiratory pattern is regular bb3 symmetrical, diminished fine scattered wheezes throughout. Pt has a strong hacking non productive cough. 00:48 Initial Med Neb Given as ordered Patient was instructed and evaluated on procedure. bb3 00:53 Respiratory: lung sounds increased throughout. Lung sounds with scattered crackles in bb3 posterior. 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: ; : 1960 Requested By: KRISTOPHER PATEL; Order Number: [id number] Reading MD: Elissa Medellin; Measurements; Intervals Fletcher; Rate: 79 P: 68; TX: 197 QRS: 197; QRSD: 148 T: 27; QT: 398; QTc: 459; Interpretive Statements; SINUS RHYTHM; INDETERMINATE AXIS; RIGHT BUNDLE BRANCH BLOCK AND POSSIBLE RIGHT VENTRICULAR HYPERTROPHY; ST DEPRESSION, CONSIDER SUBENDOCARDIAL INJURY; SIMILAR 03/24/16 17:22; Electronically Signed On 03-29-2016 8:15:35 EST by Elissa Medellin; Radiology Order: Chest, 2 View (pa\E\lat) Test: Chest, 2 View (pa\E\lat) REASON FOR EXAMINATION: Cough; Chest x-ray: Two views.; ; History: Cough.; ; Comparison chest x-ray March 24, 2016.; ; Findings: There is widening of the superior mediastinum in the region of the; right paratracheal region. This may be dilated azygos vein. It is a bit more; prominent than on March 02, 2016. Cardiomegaly is observed. There is also; some fullness behind the left heart border in the left mediastinal contour and in; the azygo-esophageal line, question upper abdominal and lower thoracic or perhaps; retrocrural lymphadenopathy. The pleural angles are sharp. There are a few; Misha-B lines in the right base. No pleural effusion is seen. No infiltrate is; noted.; ; Impression:; ; Cardiomegaly. Dilation of the azygos vein versus right paratracheal; lymphadenopathy. Question retrocrural or upper abdominal lymphadenopathy behind; the heart. Consider abdominal CT scanning.; ; ; Signed by; Yeison Krishnan MD 03/29/2016 01:13 P; Outcome: 02:00 Discharge ordered by Provider. cs11 02:13 Discharge Assessment: Patient awake, alert and oriented x 3. No cognitive and/or js15 functional deficits noted. Patient verbalized understanding of disposition instructions. patient administered narcotics - no. The following High Risk Discharge criteria are identified: None. Discharged to home ambulatory, with family. Condition: unchanged. Discharge instructions given to patient, Instructed on discharge instructions, follow up and referral plans. medication usage, Demonstrated understanding of instructions, medications, Pt was receptive of discharge instructions/ teaching. Prescriptions given X 1. No special radiology studies were completed. Property sent home with patient. 02:20 Patient left the ED. js15 Addendum: 04/01/2016 11:08 Narrative: Final x-ray report reviewed with Dr. Olivia and report to be faxed to PCP. jesse Signatures: Dispatcher [employer] Lynne Jones RN RN Lila Del Real RN RN mcp Barnhardt, Gloria, Napoleon Reg Trae Campbell, Cement Cutter Unit ml3 Ac Penny bb3 Kristopher Patel, DO cs11 Anna Diaz Corina Shields RN RN js15 Chart Complete MTDD
--- NOTE | 2016-04-01 11:11 | EDDOCDS ---
Physician Documentation [facility] Name: Antonio Rivera Age: 55 yrs Sex: Male : 1960 Arrival Date: 03/28/2016 Time: 23:35 Bed 5 Private MD: URBANO WOODWARD Disposition: 03/29/16 02:00 Discharged to Home/Self Care. Impression: Chronic obstructive pulmonary disease with (acute) exacerbation. - Condition is Stable. - Prescriptions for Prednisone 20 mg Oral Tablet - take 3 tablets by ORAL route once daily for 4 days; 12 tablet. - Medication Reconciliation, Local Pharmacy Hours form. - Follow up: Private Physician; When: Call to arrange an appointment; Reason: Recheck today's complaints. - Problem is chronic. - Symptoms have improved. Historical: - Allergies: mushrooms; Tape; - Home Meds: 1. amlodipine 5 mg Oral tab 1 tab once daily 2. aspirin 325 mg Oral tab 1 tab once daily 3. atorvastatin 40 mg oral tab 1 tab once daily 4. calcium acetate 667 mg oral cap 4 caps 3 times per day 5. clopidogrel 75 mg oral tab 1 tab once daily 6. furosemide 20 mg Oral tab 4 tab once daily 7. Humalog Pen sliding scale Sub-Q three times a day 8. isosorbide mononitrate 60 mg Oral Tb24 1 tab once daily 9. Levemir FlexTouch 100 unit/mL (3 mL) subcutaneous inpn 12 unit daily 10. Lopressor 50 mg Oral tab 2 times per day 11. losartan 100 mg oral tab 1 tab once daily 12. minoxidil 2.5 mg Oral tab 2 tabs 2 times per day 13. [place] 3 Fish Oil 900-1,400 mg oral cpDR twice a day 14. Sensipar 30 mg oral tab 1 tab once daily 15. Vitamin D Oral 2000 unit daily 16. Vitamin D3 4,000 unit oral cap daily 17. Flovent 110 mcg/actuation Inhl aero 2 puffs 2 times per day 18. albuterol sulfate 90 mcg/actuation Inhl HFAA 2 puffs every 4-6 hours - PMHx: Asthma; CHF; COPD; Diabetes - IDDM: controlled; GERD; Heart Disease; Renal Failure with Dialysis; Stroke; - PSHx: Appendectomy; Tonsillectomy; Adenoidectomy; Open heart surgery; Cardiac stents; toe removed from right foot; shunt placements and revisions; - Social history: Smoking status: Patient uses tobacco products, light tobacco smoker. No barriers to communication noted, The patient speaks fluent Spanish. - Family history: Not pertinent. - : The pt / caregiver states he / she is on anticoagulants: Plavix. Home medication list is obtained from the patient. - Exposure Risk Screening:: None identified. Vital Signs: 03/28 23:42 BP 179 / 81; Pulse 82; Resp 18; Pulse Ox 97% on R/A; Weight 100.24 kg / 220.99 lbs; mcp Height 6 ft. 3 in. (190.50 cm); Pain 8/10; 23:51 Temp 97.3(O); mcp 03/29 01:11 BP 187 / 79 (auto/); js15 01:12 Pulse 80 MON; Pulse Ox 97% ; js15 01:41 BP 186 / 79 (auto/); js15 01:41 Pulse 80 MON; Pulse Ox 97% ; js15 02:12 BP 188 / 87; Pulse 82; Resp 18; Temp 98.4(O); Pulse Ox 94% on R/A; js15 03/28 23:42 Body Mass Index 27.62 (100.24 kg, 190.50 cm) mcp MDM: 03/28 23:52 ECG WITH READING ER PHYS+CARDIAG ordered. EDMS 23:56 Chest, 2 View (pa\E\lat) Ordered. EDMS 03/29 00:28 Financial registration complete. [facility] 00:45 Dextromethorphan-Guaifenesin Liquid 10 mg-100 mg/5 mL 5 ml PO once ordered. cs11 00:45 Albuterol-Ipratropium 3 ml Inhalation once ordered. cs11 00:45 Call Respiratory ordered. cs11 00:45 IV Saline Lock ordered. cs11 00:45 Dexamethasone 12 mg IV at bolus once ordered. cs11 00:46 Call Respiratory complete. ml3 01:26 [facility] Payment Agreement was scanned into [employer] and attached to record. [facility] 11:00 T-Sheet-- Draft Copy was scanned into [employer] and attached to record. gb 11:01 ECG/EKG was scanned into [employer] and attached to record. gb Administered Medications: 00:49 Drug: Albuterol-Ipratropium 3 ml [ipratropium-albuterol 0.5 mg-3 mg(2.5 mg base)/3 mL bb3 nebulization soln (3 mL)] Route: Inhalation; 00:55 Follow up: lung sounds increased throughout. Lung sounds with scattered crackles in bb3 posterior 00:50 CANCELLED (Duplicate Order): Albuterol-Ipratropium 3 ml Inhalation once bb3 01:10 Drug: Dextromethorphan-Guaifenesin 5 ml [dextromethorphan-guaifenesin 10 mg-100 mg/5 mL js15 oral liquid (5 mL)] Route: PO; 01:10 Drug: Dexamethasone 12 mg [dexamethasone 4 mg/mL injection solution] Route: IV; Rate: js15 bolus; Site: right forearm; 02:02 Follow up: Response: No Adverse Reaction js15 Signatures: Dispatcher [employer] Lila Dumont, RN RN [facility] Massiel Enriquez, Napoleon Reg gb Roger, Trae, Physician Pediatrician Unit ml3 Ac Penny bb3 Kristopher Souza, DO 11 Anna Diaz [facility] Corina Pardo RN RN js15 The chart was reviewed and I authenticate all verbal orders and agree with the evaluation and treatment provided.Corrections: (The following items were deleted from the chart) 00:50 00:44 Albuterol-Ipratropium 3 ml Inhalation once ordered. bb3 bb3 Attachments: 01:26 [facility] Payment Agreement [facility] 11:00 T-Sheet-- Draft Copy 11:01 ECG/EKG Chart Complete MTDD
--- NOTE | 2016-04-01 11:11 | EDDOCDS ---
Physician Documentation [facility] Name: Antonio Rivera Age: 55 yrs Sex: Male : 1960 Arrival Date: 03/28/2016 Time: 23:35 Bed 5 Private MD: URBANO WOODWARD Disposition: 03/29/16 02:00 Discharged to Home/Self Care. Impression: Chronic obstructive pulmonary disease with (acute) exacerbation. - Condition is Stable. - Prescriptions for Prednisone 20 mg Oral Tablet - take 3 tablets by ORAL route once daily for 4 days; 12 tablet. - Medication Reconciliation, Local Pharmacy Hours form. - Follow up: Private Physician; When: Call to arrange an appointment; Reason: Recheck today's complaints. - Problem is chronic. - Symptoms have improved. Historical: - Allergies: mushrooms; Tape; - Home Meds: 1. amlodipine 5 mg Oral tab 1 tab once daily 2. aspirin 325 mg Oral tab 1 tab once daily 3. atorvastatin 40 mg oral tab 1 tab once daily 4. calcium acetate 667 mg oral cap 4 caps 3 times per day 5. clopidogrel 75 mg oral tab 1 tab once daily 6. furosemide 20 mg Oral tab 4 tab once daily 7. Humalog Pen sliding scale Sub-Q three times a day 8. isosorbide mononitrate 60 mg Oral Tb24 1 tab once daily 9. Levemir FlexTouch 100 unit/mL (3 mL) subcutaneous inpn 12 unit daily 10. Lopressor 50 mg Oral tab 2 times per day 11. losartan 100 mg oral tab 1 tab once daily 12. minoxidil 2.5 mg Oral tab 2 tabs 2 times per day 13. [place] 3 Fish Oil 900-1,400 mg oral cpDR twice a day 14. Sensipar 30 mg oral tab 1 tab once daily 15. Vitamin D Oral 2000 unit daily 16. Vitamin D3 4,000 unit oral cap daily 17. Flovent 110 mcg/actuation Inhl aero 2 puffs 2 times per day 18. albuterol sulfate 90 mcg/actuation Inhl HFAA 2 puffs every 4-6 hours - PMHx: Asthma; CHF; COPD; Diabetes - IDDM: controlled; GERD; Heart Disease; Renal Failure with Dialysis; Stroke; - PSHx: Appendectomy; Tonsillectomy; Adenoidectomy; Open heart surgery; Cardiac stents; toe removed from right foot; shunt placements and revisions; - Social history: Smoking status: Patient uses tobacco products, light tobacco smoker. No barriers to communication noted, The patient speaks fluent Swazi. - Family history: Not pertinent. - : The pt / caregiver states he / she is on anticoagulants: Plavix. Home medication list is obtained from the patient. - Exposure Risk Screening:: None identified. Vital Signs: 03/28 23:42 BP 179 / 81; Pulse 82; Resp 18; Pulse Ox 97% on R/A; Weight 100.24 kg / 220.99 lbs; mcp Height 6 ft. 3 in. (190.50 cm); Pain 8/10; 23:51 Temp 97.3(O); mcp 03/29 01:11 BP 187 / 79 (auto/); js15 01:12 Pulse 80 MON; Pulse Ox 97% ; js15 01:41 BP 186 / 79 (auto/); js15 01:41 Pulse 80 MON; Pulse Ox 97% ; js15 02:12 BP 188 / 87; Pulse 82; Resp 18; Temp 98.4(O); Pulse Ox 94% on R/A; js15 03/28 23:42 Body Mass Index 27.62 (100.24 kg, 190.50 cm) mcp MDM: 03/28 23:52 ECG WITH READING ER PHYS+CARDIAG ordered. EDMS 23:56 Chest, 2 View (pa\E\lat) Ordered. EDMS 03/29 00:[address] [facility] 00:45 Dextromethorphan-Guaifenesin Liquid 10 mg-100 mg/5 mL 5 ml PO once ordered. cs11 00:45 Albuterol-Ipratropium 3 ml Inhalation once ordered. cs11 00:45 Call Respiratory ordered. cs11 00:45 IV Saline Lock ordered. cs11 00:45 Dexamethasone 12 mg IV at bolus once ordered. cs11 00:46 Call Respiratory complete. ml3 01:26 [facility] Payment Agreement was scanned into [employer] and attached to record. [facility] 11:00 T-Sheet-- Draft Copy was scanned into [employer] and attached to record. gb 11:01 ECG/EKG was scanned into [employer] and attached to record. gb Administered Medications: 00:49 Drug: Albuterol-Ipratropium 3 ml [ipratropium-albuterol 0.5 mg-3 mg(2.5 mg base)/3 mL bb3 nebulization soln (3 mL)] Route: Inhalation; 00:55 Follow up: lung sounds increased throughout. Lung sounds with scattered crackles in bb3 posterior 00:50 CANCELLED (Duplicate Order): Albuterol-Ipratropium 3 ml Inhalation once bb3 01:10 Drug: Dextromethorphan-Guaifenesin 5 ml [dextromethorphan-guaifenesin 10 mg-100 mg/5 mL js15 oral liquid (5 mL)] Route: PO; 01:10 Drug: Dexamethasone 12 mg [dexamethasone 4 mg/mL injection solution] Route: IV; Rate: js15 bolus; Site: right forearm; 02:02 Follow up: Response: No Adverse Reaction js15 Signatures: Dispatcher [employer] Lila Dumont, RN RN [facility] Massiel Enriquez, Napoleon Reg gb Roger, Trae, Yardage Control Clerk Unit ml3 Ac Penny bb3 Kristopher Souza, DO [address] [facility] Corina Pardo RN RN js15 The chart was reviewed and I authenticate all verbal orders and agree with the evaluation and treatment provided.Corrections: (The following items were deleted from the chart) 00:50 00:44 Albuterol-Ipratropium 3 ml Inhalation once ordered. bb3 bb3 Attachments: 01:26 [facility] Payment Agreement [facility] 11:00 T-Sheet-- Draft Copy 11:01 ECG/EKG Chart Complete MTDD
--- NOTE | 2016-04-01 20:36 | EDDOCDS ---
Nurse's Notes [facility] Name: Antonio Rivera Age: 55 yrs Sex: Male : 1960 Arrival Date: 03/28/2016 Time: 23:35 Bed 5 Private MD: URBANO WOODWARD Diagnosis: Chronic obstructive pulmonary disease with (acute) exacerbation Presentation: 03/28 23:43 Presenting complaint: Patient states: Left sided chest pain since 1000 this am--worse mcp this am, now pain 8/10. Was given 324mg ASA by EMS, refused IV start. Adult Sepsis Screening: The patient does not have new or worsening altered mentation. Patient's respiratory rate is less than 22. Systolic blood pressure is greater than 100. Patient has a qSOFA score of 0- Negative Sepsis Screen. Suicide/Homicide risk assessment- the patient denies having any suicidal and/or homicidal ideations and does not present with any other emotional, behavioral or mental health complaints. Status: Patient is not a director agricultural services or dependent. Transition of care: patient was not received from another setting of care. 23:43 Acuity: [place] Level 3 [facility] 23:43 Method Of Arrival: Ambulance [facility] Triage Assessment: 23:50 General: Appears uncomfortable, Behavior is cooperative. Pain: Location: anterior mcp aspect of left upper chest Pain currently is 8 out of 10 on a pain scale. HIV screening NA for this visit Offered previously. Neurological: No deficits noted. Respiratory: Airway is patent. Derm: Skin is pink, warm & dry. Historical: - Allergies: mushrooms; Tape; - Home Meds: 1. amlodipine 5 mg Oral tab 1 tab once daily 2. aspirin 325 mg Oral tab 1 tab once daily 3. atorvastatin 40 mg oral tab 1 tab once daily 4. calcium acetate 667 mg oral cap 4 caps 3 times per day 5. clopidogrel 75 mg oral tab 1 tab once daily 6. furosemide 20 mg Oral tab 4 tab once daily 7. Humalog Pen sliding scale Sub-Q three times a day 8. isosorbide mononitrate 60 mg Oral Tb24 1 tab once daily 9. Levemir FlexTouch 100 unit/mL (3 mL) subcutaneous inpn 12 unit daily 10. Lopressor 50 mg Oral tab 2 times per day 11. losartan 100 mg oral tab 1 tab once daily 12. minoxidil 2.5 mg Oral tab 2 tabs 2 times per day 13. [place] 3 Fish Oil 900-1,400 mg oral cpDR twice a day 14. Sensipar 30 mg oral tab 1 tab once daily 15. Vitamin D Oral 2000 unit daily 16. Vitamin D3 4,000 unit oral cap daily 17. Flovent 110 mcg/actuation Inhl aero 2 puffs 2 times per day 18. albuterol sulfate 90 mcg/actuation Inhl HFAA 2 puffs every 4-6 hours - PMHx: Asthma; CHF; COPD; Diabetes - IDDM: controlled; GERD; Heart Disease; Renal Failure with Dialysis; Stroke; - PSHx: Appendectomy; Tonsillectomy; Adenoidectomy; Open heart surgery; Cardiac stents; toe removed from right foot; shunt placements and revisions; - Social history: Smoking status: Patient uses tobacco products, light tobacco smoker. No barriers to communication noted, The patient speaks fluent Lithuanian. - Family history: Not pertinent. - : The pt / caregiver states he / she is on anticoagulants: Plavix. Home medication list is obtained from the patient. - Exposure Risk Screening:: None identified. Screenin/21 00:30 Screening information is obtained from the patient. Fall risk: No risks identified. js15 Assistance ADL's: requires no assistance with activities of daily living. Abuse/DV Screen: The patient / caregiver reports he/she is: not in a situation that causes fear, pain or injury. Nutritional screening: No deficits noted. Advance Directives: There is no active DNR order. home support is adequate. Assessment: 00:30 General: Appears in no apparent distress, Behavior is appropriate for age, cooperative. js15 Neurological: Level of Consciousness is awake, alert, obeys commands, Oriented to person, place, time. Respiratory: Airway is patent Respiratory effort is even, unlabored, Respiratory pattern is regular, symmetrical. Derm: Skin is pink, warm & dry. 01:30 Reassessment: Patient appears in no apparent distress at this time. Pt resting on js15 stretcher, talking to family at bedside and watching tv; respirations even and unlabored; skin pink, warm, dry; cardiac rhythm is NSR. Vital Signs: 03/28 23:42 BP 179 / 81; Pulse 82; Resp 18; Pulse Ox 97% on R/A; Weight 100.24 kg; Height 6 ft. 3 mcp in. (190.50 cm); Pain 8/10; 23:51 Temp 97.3(O); [facility] 03/29 01:11 BP 187 / 79 (auto/); js15 01:12 Pulse 80 MON; Pulse Ox 97% ; js15 01:41 BP 186 / 79 (auto/); js15 01:41 Pulse 80 MON; Pulse Ox 97% ; js15 02:12 BP 188 / 87; Pulse 82; Resp 18; Temp 98.4(O); Pulse Ox 94% on R/A; js15 03/28 23:42 Body Mass Index 27.62 (100.24 kg, 190.50 cm) [facility] Vitals: 03/28 23:42 Log In Time N/A - ambulance arrival. [facility] ED Course: 23:36 Patient visited by Trae Duran Clothes Wringer. ml3 23:36 Patient moved to Waiting ml3 23:37 URBANO WOODWARD is Private Physician. ml3 23:37 Patient moved to 5 ml3 23:44 Triage Initiated [facility] 23:51 Patient visited by Lila Montanez RN. [facility] 23:54 Kristopher Patel DO is Attending Physician. [facility] 23:54 Patient visited by Kristopher Patel DO. [facility] 03/29 00:01 EKG done. (by ED staff). Reviewed by Kristopher Patel DO. [facility] 01:00 Patient visited by Corina Pardo RN. 15 01:00 The patient / caregiver is instructed regarding the plan of care and ED course. js15 01:00 Inserted saline lock: 20 gauge in right forearm The patient tolerated the procedure js15 well. 01:26 [facility] Payment Agreement was scanned into [employer] and attached to record. [facility] 02:02 No procedures done that require assistance. js15 02:13 Discontinued IV lock intact, bleeding controlled, pressure dressing applied, No js15 redness/swelling at site. 08:42 EKG-ADULT Returned. EDMS 11:00 T-Sheet-- Draft Copy was scanned into [employer] and attached to record. gb 11:01 ECG/EKG was scanned into [employer] and attached to record. gb 11:34 Chest, 2 View (pa\E\lat) Returned. EDMS Administered Medications: 00:49 Drug: Albuterol-Ipratropium 3 ml [ipratropium-albuterol 0.5 mg-3 mg(2.5 mg base)/3 mL bb3 nebulization soln (3 mL)] Route: Inhalation; 00:55 Follow up: lung sounds increased throughout. Lung sounds with scattered crackles in bb3 posterior 00:50 CANCELLED (Duplicate Order): Albuterol-Ipratropium 3 ml Inhalation once bb3 01:10 Drug: Dextromethorphan-Guaifenesin 5 ml [dextromethorphan-guaifenesin 10 mg-100 mg/5 mL js15 oral liquid (5 mL)] Route: PO; 01:10 Drug: Dexamethasone 12 mg [dexamethasone 4 mg/mL injection solution] Route: IV; Rate: js15 bolus; Site: right forearm; 02:02 Follow up: Response: No Adverse Reaction js15 Intake: RT: 00:46 Respiratory: Respiratory effort is even, unlabored, Respiratory pattern is regular bb3 symmetrical, diminished fine scattered wheezes throughout. Pt has a strong hacking non productive cough. 00:48 Initial Med Neb Given as ordered Patient was instructed and evaluated on procedure. bb3 00:53 Respiratory: lung sounds increased throughout. Lung sounds with scattered crackles in bb3 posterior. 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: ; : 1960 Requested By: KRISTOPHER PATEL; Order Number: [id number] Reading MD: Elissa Medellin; Measurements; Intervals [place]; Rate: 79 P: 68; [place]: 197 QRS: 197; QRSD: 148 T: 27; QT: 398; QTc: 459; Interpretive Statements; SINUS RHYTHM; INDETERMINATE AXIS; RIGHT BUNDLE BRANCH BLOCK AND POSSIBLE RIGHT VENTRICULAR HYPERTROPHY; ST DEPRESSION, CONSIDER SUBENDOCARDIAL INJURY; SIMILAR 03/24/16 17:22; Electronically Signed On 03-29-2016 8:15:35 EST by Elissa Medellin; Radiology Order: Chest, 2 View (pa\E\lat) Test: Chest, 2 View (pa\E\lat) REASON FOR EXAMINATION: Cough; Chest x-ray: Two views.; ; History: Cough.; ; Comparison chest x-ray March 24, 2016.; ; Findings: There is widening of the superior mediastinum in the region of the; right paratracheal region. This may be dilated azygos vein. It is a bit more; prominent than on March 02, 2016. Cardiomegaly is observed. There is also; some fullness behind the left heart border in the left mediastinal contour and in; the azygo-esophageal line, question upper abdominal and lower thoracic or perhaps; retrocrural lymphadenopathy. The pleural angles are sharp. There are a few; Misha-B lines in the right base. No pleural effusion is seen. No infiltrate is; noted.; ; Impression:; ; Cardiomegaly. Dilation of the azygos vein versus right paratracheal; lymphadenopathy. Question retrocrural or upper abdominal lymphadenopathy behind; the heart. Consider abdominal CT scanning.; ; ; Signed by; Yeison Krishnan MD 03/29/2016 01:13 P; Outcome: 02:00 Discharge ordered by Provider. cs11 02:13 Discharge Assessment: Patient awake, alert and oriented x 3. No cognitive and/or js15 functional deficits noted. Patient verbalized understanding of disposition instructions. patient administered narcotics - no. The following High Risk Discharge criteria are identified: None. Discharged to home ambulatory, with family. Condition: unchanged. Discharge instructions given to patient, Instructed on discharge instructions, follow up and referral plans. medication usage, Demonstrated understanding of instructions, medications, Pt was receptive of discharge instructions/ teaching. Prescriptions given X 1. No special radiology studies were completed. Property sent home with patient. 02:20 Patient left the ED. js15 Addendum: 04/01/2016 11:08 Narrative: Final x-ray report reviewed with Dr. Olivia and report to be faxed to PCP. jesse Signatures: Dispatcher [employer] Lynne Jones RN RN Lila Del Real RN RN mcp Barnhardt, Gloria, Napoleon Reg Trae Campbell, Clothes Wringer Unit ml3 Ac Penny bb3 Kristopher Patel, DO cs11 Anna Diaz Corina Shields RN RN js15 Chart Complete MTDD
--- NOTE | 2016-04-01 20:36 | EDDOCDS ---
Nurse's Notes [facility] Name: Antonio Rivera Age: 55 yrs Sex: Male : 1960 Arrival Date: 03/28/2016 Time: 23:35 Bed 5 Private MD: URBANO WOODWARD Diagnosis: Chronic obstructive pulmonary disease with (acute) exacerbation Presentation: 03/28 23:43 Presenting complaint: Patient states: Left sided chest pain since 1000 this am--worse mcp this am, now pain 8/10. Was given 324mg ASA by EMS, refused IV start. Adult Sepsis Screening: The patient does not have new or worsening altered mentation. Patient's respiratory rate is less than 22. Systolic blood pressure is greater than 100. Patient has a qSOFA score of 0- Negative Sepsis Screen. Suicide/Homicide risk assessment- the patient denies having any suicidal and/or homicidal ideations and does not present with any other emotional, behavioral or mental health complaints. Status: Patient is not a accounting advisory services manager or dependent. Transition of care: patient was not received from another setting of care. 23:43 Acuity: [place] Level 3 [facility] 23:43 Method Of Arrival: Ambulance [facility] Triage Assessment: 23:50 General: Appears uncomfortable, Behavior is cooperative. Pain: Location: anterior mcp aspect of left upper chest Pain currently is 8 out of 10 on a pain scale. HIV screening NA for this visit Offered previously. Neurological: No deficits noted. Respiratory: Airway is patent. Derm: Skin is pink, warm & dry. Historical: - Allergies: mushrooms; Tape; - Home Meds: 1. amlodipine 5 mg Oral tab 1 tab once daily 2. aspirin 325 mg Oral tab 1 tab once daily 3. atorvastatin 40 mg oral tab 1 tab once daily 4. calcium acetate 667 mg oral cap 4 caps 3 times per day 5. clopidogrel 75 mg oral tab 1 tab once daily 6. furosemide 20 mg Oral tab 4 tab once daily 7. Humalog Pen sliding scale Sub-Q three times a day 8. isosorbide mononitrate 60 mg Oral Tb24 1 tab once daily 9. Levemir FlexTouch 100 unit/mL (3 mL) subcutaneous inpn 12 unit daily 10. Lopressor 50 mg Oral tab 2 times per day 11. losartan 100 mg oral tab 1 tab once daily 12. minoxidil 2.5 mg Oral tab 2 tabs 2 times per day 13. [place] 3 Fish Oil 900-1,400 mg oral cpDR twice a day 14. Sensipar 30 mg oral tab 1 tab once daily 15. Vitamin D Oral 2000 unit daily 16. Vitamin D3 4,000 unit oral cap daily 17. Flovent 110 mcg/actuation Inhl aero 2 puffs 2 times per day 18. albuterol sulfate 90 mcg/actuation Inhl HFAA 2 puffs every 4-6 hours - PMHx: Asthma; CHF; COPD; Diabetes - IDDM: controlled; GERD; Heart Disease; Renal Failure with Dialysis; Stroke; - PSHx: Appendectomy; Tonsillectomy; Adenoidectomy; Open heart surgery; Cardiac stents; toe removed from right foot; shunt placements and revisions; - Social history: Smoking status: Patient uses tobacco products, light tobacco smoker. No barriers to communication noted, The patient speaks fluent Stateless. - Family history: Not pertinent. - : The pt / caregiver states he / she is on anticoagulants: Plavix. Home medication list is obtained from the patient. - Exposure Risk Screening:: None identified. Screenin/21 00:30 Screening information is obtained from the patient. Fall risk: No risks identified. js15 Assistance ADL's: requires no assistance with activities of daily living. Abuse/DV Screen: The patient / caregiver reports he/she is: not in a situation that causes fear, pain or injury. Nutritional screening: No deficits noted. Advance Directives: There is no active DNR order. home support is adequate. Assessment: 00:30 General: Appears in no apparent distress, Behavior is appropriate for age, cooperative. js15 Neurological: Level of Consciousness is awake, alert, obeys commands, Oriented to person, place, time. Respiratory: Airway is patent Respiratory effort is even, unlabored, Respiratory pattern is regular, symmetrical. Derm: Skin is pink, warm & dry. 01:30 Reassessment: Patient appears in no apparent distress at this time. Pt resting on js15 stretcher, talking to family at bedside and watching tv; respirations even and unlabored; skin pink, warm, dry; cardiac rhythm is NSR. Vital Signs: 03/28 23:42 BP 179 / 81; Pulse 82; Resp 18; Pulse Ox 97% on R/A; Weight 100.24 kg; Height 6 ft. 3 mcp in. (190.50 cm); Pain 8/10; 23:51 Temp 97.3(O); [facility] 03/29 01:11 BP 187 / 79 (auto/); js15 01:12 Pulse 80 MON; Pulse Ox 97% ; js15 01:41 BP 186 / 79 (auto/); js15 01:41 Pulse 80 MON; Pulse Ox 97% ; js15 02:12 BP 188 / 87; Pulse 82; Resp 18; Temp 98.4(O); Pulse Ox 94% on R/A; js15 03/28 23:42 Body Mass Index 27.62 (100.24 kg, 190.50 cm) [facility] Vitals: 03/28 23:42 Log In Time N/A - ambulance arrival. [facility] ED Course: 23:36 Patient visited by Trae Duran Dimension Warehouse Supervisor. ml3 23:36 Patient moved to Waiting ml3 23:37 URBANO WOODWARD is Private Physician. ml3 23:37 Patient moved to 5 ml3 23:44 Triage Initiated [facility] 23:51 Patient visited by Lila Montanez RN. [facility] 23:54 Kristopher Patel DO is Attending Physician. [facility] 23:54 Patient visited by Kristopher Patel DO. [facility] 03/29 00:01 EKG done. (by ED staff). Reviewed by Kristopher Patel DO. [facility] 01:00 Patient visited by Corina Pardo RN. 15 01:00 The patient / caregiver is instructed regarding the plan of care and ED course. js15 01:00 Inserted saline lock: 20 gauge in right forearm The patient tolerated the procedure js15 well. 01:26 [facility] Payment Agreement was scanned into [employer] and attached to record. [facility] 02:02 No procedures done that require assistance. js15 02:13 Discontinued IV lock intact, bleeding controlled, pressure dressing applied, No js15 redness/swelling at site. 08:42 EKG-ADULT Returned. EDMS 11:00 T-Sheet-- Draft Copy was scanned into [employer] and attached to record. gb 11:01 ECG/EKG was scanned into [employer] and attached to record. gb 11:34 Chest, 2 View (pa\E\lat) Returned. EDMS Administered Medications: 00:49 Drug: Albuterol-Ipratropium 3 ml [ipratropium-albuterol 0.5 mg-3 mg(2.5 mg base)/3 mL bb3 nebulization soln (3 mL)] Route: Inhalation; 00:55 Follow up: lung sounds increased throughout. Lung sounds with scattered crackles in bb3 posterior 00:50 CANCELLED (Duplicate Order): Albuterol-Ipratropium 3 ml Inhalation once bb3 01:10 Drug: Dextromethorphan-Guaifenesin 5 ml [dextromethorphan-guaifenesin 10 mg-100 mg/5 mL js15 oral liquid (5 mL)] Route: PO; 01:10 Drug: Dexamethasone 12 mg [dexamethasone 4 mg/mL injection solution] Route: IV; Rate: js15 bolus; Site: right forearm; 02:02 Follow up: Response: No Adverse Reaction js15 Intake: RT: 00:46 Respiratory: Respiratory effort is even, unlabored, Respiratory pattern is regular bb3 symmetrical, diminished fine scattered wheezes throughout. Pt has a strong hacking non productive cough. 00:48 Initial Med Neb Given as ordered Patient was instructed and evaluated on procedure. bb3 00:53 Respiratory: lung sounds increased throughout. Lung sounds with scattered crackles in bb3 posterior. 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: ; : 1960 Requested By: KRISTOPHER PATEL; Order Number: [id number] Reading MD: Elissa Medellin; Measurements; Intervals [place]; Rate: 79 P: 68; [place]: 197 QRS: 197; QRSD: 148 T: 27; QT: 398; QTc: 459; Interpretive Statements; SINUS RHYTHM; INDETERMINATE AXIS; RIGHT BUNDLE BRANCH BLOCK AND POSSIBLE RIGHT VENTRICULAR HYPERTROPHY; ST DEPRESSION, CONSIDER SUBENDOCARDIAL INJURY; SIMILAR 03/24/16 17:22; Electronically Signed On 03-29-2016 8:15:35 EST by Elissa Medellin; Radiology Order: Chest, 2 View (pa\E\lat) Test: Chest, 2 View (pa\E\lat) REASON FOR EXAMINATION: Cough; Chest x-ray: Two views.; ; History: Cough.; ; Comparison chest x-ray March 24, 2016.; ; Findings: There is widening of the superior mediastinum in the region of the; right paratracheal region. This may be dilated azygos vein. It is a bit more; prominent than on March 02, 2016. Cardiomegaly is observed. There is also; some fullness behind the left heart border in the left mediastinal contour and in; the azygo-esophageal line, question upper abdominal and lower thoracic or perhaps; retrocrural lymphadenopathy. The pleural angles are sharp. There are a few; Misha-B lines in the right base. No pleural effusion is seen. No infiltrate is; noted.; ; Impression:; ; Cardiomegaly. Dilation of the azygos vein versus right paratracheal; lymphadenopathy. Question retrocrural or upper abdominal lymphadenopathy behind; the heart. Consider abdominal CT scanning.; ; ; Signed by; Yeison Krishnan MD 03/29/2016 01:13 P; Outcome: 02:00 Discharge ordered by Provider. cs11 02:13 Discharge Assessment: Patient awake, alert and oriented x 3. No cognitive and/or js15 functional deficits noted. Patient verbalized understanding of disposition instructions. patient administered narcotics - no. The following High Risk Discharge criteria are identified: None. Discharged to home ambulatory, with family. Condition: unchanged. Discharge instructions given to patient, Instructed on discharge instructions, follow up and referral plans. medication usage, Demonstrated understanding of instructions, medications, Pt was receptive of discharge instructions/ teaching. Prescriptions given X 1. No special radiology studies were completed. Property sent home with patient. 02:20 Patient left the ED. js15 Addendum: 04/01/2016 11:08 Narrative: Final x-ray report reviewed with Dr. Olivia and report to be faxed to PCP. jesse Signatures: Dispatcher [employer] Lynne Jones RN RN Lila Del Real RN RN mcp Barnhardt, Gloria, Napoleon Reg Trae Campbell, Dimension Warehouse Supervisor Unit ml3 Ac Penny bb3 Kristopher Patel, DO cs11 Anna Diaz Corina Shields RN RN js15 MTDD
--- NOTE | 2016-04-01 20:36 | EDDOCDS ---
Physician Documentation [facility] Name: Antonio Rivera Age: 55 yrs Sex: Male : 1960 Arrival Date: 03/28/2016 Time: 23:35 Bed 5 Private MD: URBANO WOODWARD Disposition: 03/29/16 02:00 Discharged to Home/Self Care. Impression: Chronic obstructive pulmonary disease with (acute) exacerbation. - Condition is Stable. - Prescriptions for Prednisone 20 mg Oral Tablet - take 3 tablets by ORAL route once daily for 4 days; 12 tablet. - Medication Reconciliation, Local Pharmacy Hours form. - Follow up: Private Physician; When: Call to arrange an appointment; Reason: Recheck today's complaints. - Problem is chronic. - Symptoms have improved. Historical: - Allergies: mushrooms; Tape; - Home Meds: 1. amlodipine 5 mg Oral tab 1 tab once daily 2. aspirin 325 mg Oral tab 1 tab once daily 3. atorvastatin 40 mg oral tab 1 tab once daily 4. calcium acetate 667 mg oral cap 4 caps 3 times per day 5. clopidogrel 75 mg oral tab 1 tab once daily 6. furosemide 20 mg Oral tab 4 tab once daily 7. Humalog Pen sliding scale Sub-Q three times a day 8. isosorbide mononitrate 60 mg Oral Tb24 1 tab once daily 9. Levemir FlexTouch 100 unit/mL (3 mL) subcutaneous inpn 12 unit daily 10. Lopressor 50 mg Oral tab 2 times per day 11. losartan 100 mg oral tab 1 tab once daily 12. minoxidil 2.5 mg Oral tab 2 tabs 2 times per day 13. [place] 3 Fish Oil 900-1,400 mg oral cpDR twice a day 14. Sensipar 30 mg oral tab 1 tab once daily 15. Vitamin D Oral 2000 unit daily 16. Vitamin D3 4,000 unit oral cap daily 17. Flovent 110 mcg/actuation Inhl aero 2 puffs 2 times per day 18. albuterol sulfate 90 mcg/actuation Inhl HFAA 2 puffs every 4-6 hours - PMHx: Asthma; CHF; COPD; Diabetes - IDDM: controlled; GERD; Heart Disease; Renal Failure with Dialysis; Stroke; - PSHx: Appendectomy; Tonsillectomy; Adenoidectomy; Open heart surgery; Cardiac stents; toe removed from right foot; shunt placements and revisions; - Social history: Smoking status: Patient uses tobacco products, light tobacco smoker. No barriers to communication noted, The patient speaks fluent [place]. - Family history: Not pertinent. - : The pt / caregiver states he / she is on anticoagulants: Plavix. Home medication list is obtained from the patient. - Exposure Risk Screening:: None identified. Vital Signs: 03/28 23:42 BP 179 / 81; Pulse 82; Resp 18; Pulse Ox 97% on R/A; Weight 100.24 kg / 220.99 lbs; mcp Height 6 ft. 3 in. (190.50 cm); Pain 8/10; 23:51 Temp 97.3(O); mcp 03/29 01:11 BP 187 / 79 (auto/); js15 01:12 Pulse 80 MON; Pulse Ox 97% ; js15 01:41 BP 186 / 79 (auto/); js15 01:41 Pulse 80 MON; Pulse Ox 97% ; js15 02:12 BP 188 / 87; Pulse 82; Resp 18; Temp 98.4(O); Pulse Ox 94% on R/A; js15 03/28 23:42 Body Mass Index 27.62 (100.24 kg, 190.50 cm) mcp MDM: 03/28 23:52 ECG WITH READING ER PHYS+CARDIAG ordered. EDMS 23:56 Chest, 2 View (pa\E\lat) Ordered. EDMS 03/29 00:28 Financial registration complete. [facility] 00:45 Dextromethorphan-Guaifenesin Liquid 10 mg-100 mg/5 mL 5 ml PO once ordered. cs11 00:45 Albuterol-Ipratropium 3 ml Inhalation once ordered. cs11 00:45 Call Respiratory ordered. cs11 00:45 IV Saline Lock ordered. cs11 00:45 Dexamethasone 12 mg IV at bolus once ordered. cs11 00:46 Call Respiratory complete. ml3 01:26 [facility] Payment Agreement was scanned into [employer] and attached to record. [facility] 11:00 T-Sheet-- Draft Copy was scanned into [employer] and attached to record. gb 11:01 ECG/EKG was scanned into [employer] and attached to record. gb Administered Medications: 00:49 Drug: Albuterol-Ipratropium 3 ml [ipratropium-albuterol 0.5 mg-3 mg(2.5 mg base)/3 mL bb3 nebulization soln (3 mL)] Route: Inhalation; 00:55 Follow up: lung sounds increased throughout. Lung sounds with scattered crackles in bb3 posterior 00:50 CANCELLED (Duplicate Order): Albuterol-Ipratropium 3 ml Inhalation once bb3 01:10 Drug: Dextromethorphan-Guaifenesin 5 ml [dextromethorphan-guaifenesin 10 mg-100 mg/5 mL js15 oral liquid (5 mL)] Route: PO; 01:10 Drug: Dexamethasone 12 mg [dexamethasone 4 mg/mL injection solution] Route: IV; Rate: js15 bolus; Site: right forearm; 02:02 Follow up: Response: No Adverse Reaction js15 Addendum: 04/01/2016 20:32 Radiology Callback: Radiology results faxed to primary care physician/provider. damon lyman faxed formal report of cxr for fu mlg. Signatures: Dispatcher [employer] EDFloyd Loya MD MD ml Peters, Mary, RN RN [facility] Massiel Enriquez, Napoleon Reg gb Trae Duran, Corporate Communications Intern Unit ml3 [employer] bb3 Kristopher Souza, DO 11 Anna Diaz Corina Shields,RN RN js15 The chart was reviewed and I authenticate all verbal orders and agree with the evaluation and treatment provided.Corrections: (The following items were deleted from the chart) 03/29 00:50 00:44 Albuterol-Ipratropium 3 ml Inhalation once ordered. bb3 bb3 Attachments: 01:26 [facility] Payment Agreement [facility] 11:00 T-Sheet-- Draft Copy 11:01 [facility]
--- NOTE | 2016-04-01 20:36 | EDDOCDS ---
[facility]ation [facility] Name: Antonio Rivera Age: 55 yrs Sex: Male : 1960 Arrival Date: 03/28/2016 Time: 23:35 Bed 5 Private MD: URBANO WOODWARD Disposition: 03/29/16 02:00 Discharged to Home/Self Care. Impression: Chronic obstructive pulmonary disease with (acute) exacerbation. - Condition is Stable. - Prescriptions for Prednisone 20 mg Oral Tablet - take 3 tablets by ORAL route once daily for 4 days; 12 tablet. - Medication Reconciliation, Local Pharmacy Hours form. - Follow up: Private Physician; When: Call to arrange an appointment; Reason: Recheck today's complaints. - Problem is chronic. - Symptoms have improved. Historical: - Allergies: mushrooms; Tape; - Home Meds: 1. amlodipine 5 mg Oral tab 1 tab once daily 2. aspirin 325 mg Oral tab 1 tab once daily 3. atorvastatin 40 mg oral tab 1 tab once daily 4. calcium acetate 667 mg oral cap 4 caps 3 times per day 5. clopidogrel 75 mg oral tab 1 tab once daily 6. furosemide 20 mg Oral tab 4 tab once daily 7. Humalog Pen sliding scale Sub-Q three times a day 8. isosorbide mononitrate 60 mg Oral Tb24 1 tab once daily 9. Levemir FlexTouch 100 unit/mL (3 mL) subcutaneous inpn 12 unit daily 10. Lopressor 50 mg Oral tab 2 times per day 11. losartan 100 mg oral tab 1 tab once daily 12. minoxidil 2.5 mg Oral tab 2 tabs 2 times per day 13. [place] 3 Fish Oil 900-1,400 mg oral cpDR twice a day 14. Sensipar 30 mg oral tab 1 tab once daily 15. Vitamin D Oral 2000 unit daily 16. Vitamin D3 4,000 unit oral cap daily 17. Flovent 110 mcg/actuation Inhl aero 2 puffs 2 times per day 18. albuterol sulfate 90 mcg/actuation Inhl HFAA 2 puffs every 4-6 hours - PMHx: Asthma; CHF; COPD; Diabetes - IDDM: controlled; GERD; Heart Disease; Renal Failure with Dialysis; Stroke; - PSHx: Appendectomy; Tonsillectomy; Adenoidectomy; Open heart surgery; Cardiac stents; toe removed from right foot; shunt placements and revisions; - Social history: Smoking status: Patient uses tobacco products, light tobacco smoker. No barriers to communication noted, The patient speaks fluent [place]i. - Family history: Not pertinent. - : The pt / caregiver states he / she is on anticoagulants: Plavix. Home medication list is obtained from the patient. - Exposure Risk Screening:: None identified. Vital Signs: 03/28 23:42 BP 179 / 81; Pulse 82; Resp 18; Pulse Ox 97% on R/A; Weight 100.24 kg / 220.99 lbs; mcp Height 6 ft. 3 in. (190.50 cm); Pain 8/10; 23:51 Temp 97.3(O); mcp 03/29 01:11 BP 187 / 79 (auto/); js15 01:12 Pulse 80 MON; Pulse Ox 97% ; js15 01:41 BP 186 / 79 (auto/); js15 01:41 Pulse 80 MON; Pulse Ox 97% ; js15 02:12 BP 188 / 87; Pulse 82; Resp 18; Temp 98.4(O); Pulse Ox 94% on R/A; js15 03/28 23:42 Body Mass Index 27.62 (100.24 kg, 190.50 cm) mcp MDM: 03/28 23:52 ECG WITH READING ER PHYS+CARDIAG ordered. EDMS 23:56 Chest, 2 View (pa\E\lat) Ordered. EDMS 03/29 00:28 Financial registration complete. [facility] 00:45 Dextromethorphan-Guaifenesin Liquid 10 mg-100 mg/5 mL 5 ml PO once ordered. cs11 00:45 Albuterol-Ipratropium 3 ml Inhalation once ordered. cs11 00:45 Call Respiratory ordered. cs11 00:45 IV Saline Lock ordered. cs11 00:45 Dexamethasone 12 mg IV at bolus once ordered. cs11 00:46 Call Respiratory complete. ml3 01:26 [facility] Payment Agreement was scanned into [employer] and attached to record. [facility] 11:00 T-Sheet-- Draft Copy was scanned into [employer] and attached to record. gb 11:01 ECG/EKG was scanned into [employer] and attached to record. gb Administered Medications: 00:49 Drug: Albuterol-Ipratropium 3 ml [ipratropium-albuterol 0.5 mg-3 mg(2.5 mg base)/3 mL bb3 nebulization soln (3 mL)] Route: Inhalation; 00:55 Follow up: lung sounds increased throughout. Lung sounds with scattered crackles in bb3 posterior 00:50 CANCELLED (Duplicate Order): Albuterol-Ipratropium 3 ml Inhalation once bb3 01:10 Drug: Dextromethorphan-Guaifenesin 5 ml [dextromethorphan-guaifenesin 10 mg-100 mg/5 mL js15 oral liquid (5 mL)] Route: PO; 01:10 Drug: Dexamethasone 12 mg [dexamethasone 4 mg/mL injection solution] Route: IV; Rate: js15 bolus; Site: right forearm; 02:02 Follow up: Response: No Adverse Reaction js15 Addendum: 04/01/2016 20:32 Radiology Callback: Radiology results faxed to primary care physician/provider. damon lyman faxed formal report of cxr for fu mlg. Signatures: Dispatcher [employer] EDFloyd Loya MD MD ml Peters, Mary, RN RN [facility] Massiel Enriquez, Napoleon Reg gb Trae Duran, Hr Coordinator Unit ml3 [employer] bb3 Kristopher Souza, DO 11 Anna Diaz [facility] Corina Pardo,RN RN js15 The chart was reviewed and I authenticate all verbal orders and agree with the evaluation and treatment provided.Corrections: (The following items were deleted from the chart) 03/29 00:50 00:44 Albuterol-Ipratropium 3 ml Inhalation once ordered. bb3 bb3 Attachments: 01:26 [facility] Payment Agreement [facility] 11:00 T-Sheet-- Draft Copy 11:01 ECG/EKG Chart Complete MTDD
--- NOTE | 2016-04-01 20:36 | EDDOCDS ---
Physician Documentation [facility] Name: Antonio Rivera Age: 55 yrs Sex: Male : 1960 Arrival Date: 03/28/2016 Time: 23:35 Bed 5 Private MD: URBANO WOODWARD Disposition: 03/29/16 02:00 Discharged to Home/Self Care. Impression: Chronic obstructive pulmonary disease with (acute) exacerbation. - Condition is Stable. - Prescriptions for Prednisone 20 mg Oral Tablet - take 3 tablets by ORAL route once daily for 4 days; 12 tablet. - Medication Reconciliation, Local Pharmacy Hours form. - Follow up: Private Physician; When: Call to arrange an appointment; Reason: Recheck today's complaints. - Problem is chronic. - Symptoms have improved. Historical: - Allergies: mushrooms; Tape; - Home Meds: 1. amlodipine 5 mg Oral tab 1 tab once daily 2. aspirin 325 mg Oral tab 1 tab once daily 3. atorvastatin 40 mg oral tab 1 tab once daily 4. calcium acetate 667 mg oral cap 4 caps 3 times per day 5. clopidogrel 75 mg oral tab 1 tab once daily 6. furosemide 20 mg Oral tab 4 tab once daily 7. Humalog Pen sliding scale Sub-Q three times a day 8. isosorbide mononitrate 60 mg Oral Tb24 1 tab once daily 9. Levemir FlexTouch 100 unit/mL (3 mL) subcutaneous inpn 12 unit daily 10. Lopressor 50 mg Oral tab 2 times per day 11. losartan 100 mg oral tab 1 tab once daily 12. minoxidil 2.5 mg Oral tab 2 tabs 2 times per day 13. [place] 3 Fish Oil 900-1,400 mg oral cpDR twice a day 14. Sensipar 30 mg oral tab 1 tab once daily 15. Vitamin D Oral 2000 unit daily 16. Vitamin D3 4,000 unit oral cap daily 17. Flovent 110 mcg/actuation Inhl aero 2 puffs 2 times per day 18. albuterol sulfate 90 mcg/actuation Inhl HFAA 2 puffs every 4-6 hours - PMHx: Asthma; CHF; COPD; Diabetes - IDDM: controlled; GERD; Heart Disease; Renal Failure with Dialysis; Stroke; - PSHx: Appendectomy; Tonsillectomy; Adenoidectomy; Open heart surgery; Cardiac stents; toe removed from right foot; shunt placements and revisions; - Social history: Smoking status: Patient uses tobacco products, light tobacco smoker. No barriers to communication noted, The patient speaks fluent [place]alander. - Family history: Not pertinent. - : The pt / caregiver states he / she is on anticoagulants: Plavix. Home medication list is obtained from the patient. - Exposure Risk Screening:: None identified. Vital Signs: 03/28 23:42 BP 179 / 81; Pulse 82; Resp 18; Pulse Ox 97% on R/A; Weight 100.24 kg / 220.99 lbs; mcp Height 6 ft. 3 in. (190.50 cm); Pain 8/10; 23:51 Temp 97.3(O); mcp 03/29 01:11 BP 187 / 79 (auto/); js15 01:12 Pulse 80 MON; Pulse Ox 97% ; js15 01:41 BP 186 / 79 (auto/); js15 01:41 Pulse 80 MON; Pulse Ox 97% ; js15 02:12 BP 188 / 87; Pulse 82; Resp 18; Temp 98.4(O); Pulse Ox 94% on R/A; js15 03/28 23:42 Body Mass Index 27.62 (100.24 kg, 190.50 cm) mcp MDM: 03/28 23:52 ECG WITH READING ER PHYS+CARDIAG ordered. EDMS 23:56 Chest, 2 View (pa\E\lat) Ordered. EDMS 03/29 00:28 Financial registration complete. [facility] 00:45 Dextromethorphan-Guaifenesin Liquid 10 mg-100 mg/5 mL 5 ml PO once ordered. cs11 00:45 Albuterol-Ipratropium 3 ml Inhalation once ordered. cs11 00:45 Call Respiratory ordered. cs11 00:45 IV Saline Lock ordered. cs11 00:45 Dexamethasone 12 mg IV at bolus once ordered. cs11 00:46 Call Respiratory complete. ml3 01:26 [facility] Payment Agreement was scanned into [employer] and attached to record. [facility] 11:00 T-Sheet-- Draft Copy was scanned into [employer] and attached to record. gb 11:01 ECG/EKG was scanned into [employer] and attached to record. gb Administered Medications: 00:49 Drug: Albuterol-Ipratropium 3 ml [ipratropium-albuterol 0.5 mg-3 mg(2.5 mg base)/3 mL bb3 nebulization soln (3 mL)] Route: Inhalation; 00:55 Follow up: lung sounds increased throughout. Lung sounds with scattered crackles in bb3 posterior 00:50 CANCELLED (Duplicate Order): Albuterol-Ipratropium 3 ml Inhalation once bb3 01:10 Drug: Dextromethorphan-Guaifenesin 5 ml [dextromethorphan-guaifenesin 10 mg-100 mg/5 mL js15 oral liquid (5 mL)] Route: PO; 01:10 Drug: Dexamethasone 12 mg [dexamethasone 4 mg/mL injection solution] Route: IV; Rate: js15 bolus; Site: right forearm; 02:02 Follow up: Response: No Adverse Reaction js15 Addendum: 04/01/2016 20:32 Radiology Callback: Radiology results faxed to primary care physician/provider. damon lyman faxed formal report of cxr for fu mlg. Signatures: Dispatcher [employer] EDFloyd Loya MD MD ml Peters, Mary, RN RN [facility] Massiel Enriquez, Napoleon Reg gb Trae Duran, Commander Internal Affairs Unit ml3 Ac [employer] bb3 Kristopher Souza, DO 11 Anna Diaz Corina Shields,RN RN js15 The chart was reviewed and I authenticate all verbal orders and agree with the evaluation and treatment provided.Corrections: (The following items were deleted from the chart) 03/29 00:50 00:44 Albuterol-Ipratropium 3 ml Inhalation once ordered. bb3 bb3 Attachments: 01:26 [facility] Payment Agreement [facility] 11:00 T-Sheet-- Draft Copy 11:01 ECG[facility]EKG [id number]
--- NOTE | 2016-04-01 20:36 | EDDOCDS ---
Physician Documentation [facility] Name: Antonio iRvera Age: 55 yrs Sex: Male : 1960 Arrival Date: 03/28/2016 Time: 23:35 Bed 5 Private MD: URBANO WOODWARD Disposition: 03/29/16 02:00 Discharged to Home/Self Care. Impression: Chronic obstructive pulmonary disease with (acute) exacerbation. - Condition is Stable. - Prescriptions for Prednisone 20 mg Oral Tablet - take 3 tablets by ORAL route once daily for 4 days; 12 tablet. - Medication Reconciliation, Local Pharmacy Hours form. - Follow up: Private Physician; When: Call to arrange an appointment; Reason: Recheck today's complaints. - Problem is chronic. - Symptoms have improved. Historical: - Allergies: mushrooms; Tape; - Home Meds: 1. amlodipine 5 mg Oral tab 1 tab once daily 2. aspirin 325 mg Oral tab 1 tab once daily 3. atorvastatin 40 mg oral tab 1 tab once daily 4. calcium acetate 667 mg oral cap 4 caps 3 times per day 5. clopidogrel 75 mg oral tab 1 tab once daily 6. furosemide 20 mg Oral tab 4 tab once daily 7. Humalog Pen sliding scale Sub-Q three times a day 8. isosorbide mononitrate 60 mg Oral Tb24 1 tab once daily 9. Levemir FlexTouch 100 unit/mL (3 mL) subcutaneous inpn 12 unit daily 10. Lopressor 50 mg Oral tab 2 times per day 11. losartan 100 mg oral tab 1 tab once daily 12. minoxidil 2.5 mg Oral tab 2 tabs 2 times per day 13. [place] 3 Fish Oil 900-1,400 mg oral cpDR twice a day 14. Sensipar 30 mg oral tab 1 tab once daily 15. Vitamin D Oral 2000 unit daily 16. Vitamin D3 4,000 unit oral cap daily 17. Flovent 110 mcg/actuation Inhl aero 2 puffs 2 times per day 18. albuterol sulfate 90 mcg/actuation Inhl HFAA 2 puffs every 4-6 hours - PMHx: Asthma; CHF; COPD; Diabetes - IDDM: controlled; GERD; Heart Disease; Renal Failure with Dialysis; Stroke; - PSHx: Appendectomy; Tonsillectomy; Adenoidectomy; Open heart surgery; Cardiac stents; toe removed from right foot; shunt placements and revisions; - Social history: Smoking status: Patient uses tobacco products, light tobacco smoker. No barriers to communication noted, The patient speaks fluent [place]ese. - Family history: Not pertinent. - : The pt / caregiver states he / she is on anticoagulants: Plavix. Home medication list is obtained from the patient. - Exposure Risk Screening:: None identified. Vital Signs: 03/28 23:42 BP 179 / 81; Pulse 82; Resp 18; Pulse Ox 97% on R/A; Weight 100.24 kg / 220.99 lbs; mcp Height 6 ft. 3 in. (190.50 cm); Pain 8/10; 23:51 Temp 97.3(O); mcp 03/29 01:11 BP 187 / 79 (auto/); js15 01:12 Pulse 80 MON; Pulse Ox 97% ; js15 01:41 BP 186 / 79 (auto/); js15 01:41 Pulse 80 MON; Pulse Ox 97% ; js15 02:12 BP 188 / 87; Pulse 82; Resp 18; Temp 98.4(O); Pulse Ox 94% on R/A; js15 03/28 23:42 Body Mass Index 27.62 (100.24 kg, 190.50 cm) mcp MDM: 03/28 23:52 ECG WITH READING ER PHYS+CARDIAG ordered. EDMS 23:56 Chest, 2 View (pa\E\lat) Ordered. EDMS 03/29 00:28 Financial registration complete. [facility] 00:45 Dextromethorphan-Guaifenesin Liquid 10 mg-100 mg/5 mL 5 ml PO once ordered. cs11 00:45 Albuterol-Ipratropium 3 ml Inhalation once ordered. cs11 00:45 Call Respiratory ordered. cs11 00:45 IV Saline Lock ordered. cs11 00:45 Dexamethasone 12 mg IV at bolus once ordered. cs11 00:46 Call Respiratory complete. ml3 01:26 [facility] Payment Agreement was scanned into [employer] and attached to record. [facility] 11:00 T-Sheet-- Draft Copy was scanned into [employer] and attached to record. gb 11:01 ECG/EKG was scanned into [employer] and attached to record. gb Administered Medications: 00:49 Drug: Albuterol-Ipratropium 3 ml [ipratropium-albuterol 0.5 mg-3 mg(2.5 mg base)/3 mL bb3 nebulization soln (3 mL)] Route: Inhalation; 00:55 Follow up: lung sounds increased throughout. Lung sounds with scattered crackles in bb3 posterior 00:50 CANCELLED (Duplicate Order): Albuterol-Ipratropium 3 ml Inhalation once bb3 01:10 Drug: Dextromethorphan-Guaifenesin 5 ml [dextromethorphan-guaifenesin 10 mg-100 mg/5 mL js15 oral liquid (5 mL)] Route: PO; 01:10 Drug: Dexamethasone 12 mg [dexamethasone 4 mg/mL injection solution] Route: IV; Rate: js15 bolus; Site: right forearm; 02:02 Follow up: Response: No Adverse Reaction js15 Addendum: 04/01/2016 20:32 Radiology Callback: Radiology results faxed to primary care physician/provider. damon lyman faxed formal report of cxr for fu mlg. Signatures: Dispatcher [employer] EDFloyd Loya MD MD ml Peters, Mary, RN RN [facility] Massiel Enriquez, Napoleon Reg gb Trae Duran, Electric [employer] Controls Assembler Unit ml3 [employer] bb3 Kristopher Souza, DO 11 Anna Diaz [facility] Corina Pardo,RN RN js15 The chart was reviewed and I authenticate all verbal orders and agree with the evaluation and treatment provided.Corrections: (The following items were deleted from the chart) 03/29 00:50 00:44 Albuterol-Ipratropium 3 ml Inhalation once ordered. bb3 bb3 Attachments: 01:26 [facility] Payment Agreement [facility] 11:00 T-Sheet-- Draft Copy 11:01 ECG/EKG Chart Complete MTDD
== END 2016-03-29 02:20 | disposition home or self-care (01) ==
LOC: M ED 23:35
DX: J44.1 Chronic obstructive pulmonary disease with (acute) exacerbation (principal); E11.9 Type 2 diabetes mellitus without complications; J45.909 Unspecified asthma, uncomplicated; N19 Unspecified kidney failure; K21.9 Gastro-esophageal reflux disease without esophagitis; I51.9 Heart disease, unspecified; Z99.2 Dependence on renal dialysis; F17.210 Nicotine dependence, cigarettes, uncomplicated; Z86.73 Personal history of transient ischemic attack (TIA), and cerebral infarction without residual deficits; Z79.899 Other long term (current) drug therapy; Z79.82 Long term (current) use of aspirin; Z79.4 Long term (current) use of insulin; Z79.51 Long term (current) use of inhaled steroids; Z91.018 Allergy to other foods; Z91.09 Other allergy status, other than to drugs and biological substances; Z95.5 Presence of coronary angioplasty implant and graft
CPT/HCPCS: 71020; 93005; 94640; 96374; 99284; J1100

== ENCOUNTER 2016-04-02 20:17 | Inpatient (IN) | payer MEDICARE, MEDICAID ==
[~2016-04-02] VITALS: Ht 190.5 cm; Wt 98.7 kg
[2016-04-02 21:17] LABS: BASO % 0.3 % (0.0-1.0); EOS # 0.2 K/mm3 (0.0-0.50); EOS % 3.7 % (0.0-3.0); LARGE UNSTAINED CELL # 0.1 K/mm3 (0.0-0.4); LARGE UNSTAINED CELL % 1.2 % (0.0-4.0); LYMPH # 0.8 K/mm3 (1.5-4.5); LYMPH % 12.2 % (24.0-44.0); MEAN CORPUSCULAR HEMOGLOBIN 33.3 pg (27.0-33.0); MEAN CORPUSCULAR HGB CONC 33.8 g/dl (32.0-36.5); MEAN CORPUSCULAR VOLUME 98.4 fl (80.0-96.0); MONO # 0.5 K/mm3 (0.0-0.8); MONO % 7.8 % (0.0-5.0); NEUTROPHILS # 4.6 K/mm3 (1.8-7.7); NEUTROPHILS % 74.8 % (36.0-66.0); PLATELET COUNT, AUTOMATED 209 k/mm3 (150-450); RED CELL DISTRIBUTION WIDTH 16.1 % (11.5-14.5); WHITE BLOOD COUNT 6.1 K/mm3 (4.0-10.0)
[2016-04-02 21:49] LABS: CREATININE FOR GFR 5.86 MG/DL (0.70-1.30); GLOMERULAR FILTRATION RATE 10.7 (>56)
[2016-04-02 21:55] LABS: POTASSIUM SERUM 5.3 MEQ/L (3.5-5.1)
[2016-04-02 23:49] LABS: ABG BASE EXCESS 0.7 (-2.0-2.0); ABG DEVICE NASAL CANN; ABG HCO3 24.6 MEQ/L (22.0-26.0); ABG PARTIAL PRESSURE CO2 37.2 mmHg (35.0-45.0); ABG STANDARD HCO3 24.9 MEQ/L (22.0-26.0); ABG TOTAL CO2 25.8 MEQ/L (22.0-29.0); ABG pH (ARTERIAL) 7.439 UNITS (7.350-7.450)
[2016-04-02] MEDS ORDERED: FUROSEMIDE 40 MG/4 ML VIAL (J1940) As Ordered ONE (23:59)
--- NOTE | 2016-04-03 00:20 | REPUSA ---
CLINICAL HISTORY: CHF, assess for retrocrural and upper abdominal adenopathy. TECHNIQUE: CT of the chest, abdomen and pelvis was performed without intravenous contrast by obtainin g contiguous CT axial slices from level of the vocal cords to the proximal femoral diaphyses. Multipl kathi reformats were obtained in the coronal and sagittal projections. COMPARISON: None FINDINGS : LOWER NECK: Thyroid gland is unremarkable. No mass, suspicious cystic lesion, or enlarged adenopathy identified. AXILLA AND MEDIASTINUM: There are multiple prominent to mildly enlarged mediastinal paratracheal, per iaortic, and subcarinal nodes. Multiple retrocrural tortuous venous structures noted. HEART AND GREAT VESSELS: Status post median sternotomy and CABG. Heart is normal in size with no liz cardial effusion. Great vessels demonstrate no aneurysmal dilatation. LUNGS/AIRWAYS/PLEURA: No acute infiltrate, effusion, mass, suspicious nodule, or pneumothorax. LIVER: Normal in size with smooth contours. BILIARY SYSTEM: No intrahepatic biliary ductal dilatation is seen. The common duct is normal in calib er. The gallbladder demonstrates 102 mm stones without wall thickening or pericholecystic fluid. PANCREAS: The pancreas is normal in size, contour and density. No suspicious cystic lesion or ductal dilatation. SPLEEN: Normal in size with no suspicious cystic lesion. ADRENALS: The adrenal glands are unremarkable. KIDNEYS/URETERS: Bilateral renal atrophy with cortical scarring with multiple simple as well as prote inaceous versus hemorrhagic cysts-were a few are peripherally calcified in right upper pole. There ar e also heterogeneous and more nodular measuring up to lesions for reference measuring up to 2.1 cm po sterior left interpole axial series 205, images 51 and 2.3 cm anterior left interpole exophytic image 58. No stones or hydronephrosis. URINARY BLADDER: Circumferential wall thickening noted without stones or diverticula. PROSTATE/SEMINAL VESICLES: Within normal size limits. AORTA AND ILIAC ARTERIES AND VEINS: -Diffuse atherosclerotic calcifications noted without aneurysmal dilatation -The infrahepatic IVC is diminutive, superiorly there appears to be more as echoes continuation of th e IVC. LYMPH NODES: No enlarged adenopathy. GASTROINTESTINAL: The bowel is normal in caliber. No foci of small or large bowel wall thickening are seen. PERITONEUM: No abdominal or pelvic ascites is seen. No peritoneal mass is seen. ABDOMINAL/PELVIC WALL: No hernia is identified. OSSEOUS STRUCTURES/SOFT TISSUES: No suspicious osseous lesion, acute fracture, or soft tissue abnorma lity. Multilevel degenerative changes of the spine, moderate to severe at L2-L3 and L5-S1 with disc s pace narrowing, subchondral sclerosis, vacuum phenomenon. IMPRESSION : 1. No evidence of CHF. 2. There are multiple prominent to mildly enlarged mediastinal nodes which may be benign reactive alt neha there is clinical history of malignancy metastatic disease should be considered and such cases short interim follow-up CT in 2 month would be recommended to exclude growth. -No definitive evidence of abdominal pelvic adenopathy. Periaortic structures in the upper abdomen ar e likely tortuous venous channels and may represent azygos continuation of the IVC or other vascular anomaly. If clinically necessitated this can be further confirmed by contrast CT abdomen/pelvis. 3. Bilateral renal atrophy with scarring and multiple cysts as described although a few more nodular appearing in the left kidney cannot be definitively characterized. There is no prior imaging to docum ent stability of these findings, further evaluation with contrast MR abdomen (preferable if no contra indications) versus contrast CT abdomen should be considered to exclude a cortical neoplasm.
[2016-04-03] MEDS ORDERED: ONDANSETRON 4 MG TAB (S0181) PO PRN (02:00)
[2016-04-03] MEDS ORDERED: GLUCOSE 4 GM CHEW TABLET PO PRN (02:00)
[2016-04-03] MEDS ORDERED: ONDANSETRON 4MG/2ML VIAL (J2405) IV PRN (02:00)
[2016-04-03] MEDS ORDERED: GLUCAGON FOR INJ 1 MG VIAL (J1610) SC PRN (02:00)
[2016-04-03] MEDS ORDERED: IPRATROPIUM 0.5MG/ALBUTEROL 2.5MG INH SOL UD 3ML (DUONEB)(J7620) NEB PRN (02:00)
[2016-04-03] MEDS ORDERED: ACETAMINOPHEN TAB 650MG DOSE (2X325MG) PO PRN (02:00)
[2016-04-03] MEDS ORDERED: DEXTROSE 50% 50 ML SYRINGE IV PRN (02:00)
[2016-04-03] MEDS ORDERED: AMLO10TA2 PO (02:23)
[2016-04-03] MEDS ORDERED: LOVA1CAP17 PO (02:23)
[2016-04-03] MEDS ORDERED: VITA200016 PO (02:23)
[2016-04-03] MEDS ORDERED: PRED20TA PO (02:23)
[2016-04-03] MEDS ORDERED: ASPI325T PO (02:23)
--- NOTE | 2016-04-03 02:39 | HPEPDOC ---
Medical History and Physical Date of Admission 04/03/2016 History and Physical HISTORY AND PHYSICAL Date of admission: 04/03/2016 PCP: Dr. Tonny Cartwright Chief complaint: I couldn't breathe HPI: 55-year-old male with end-stage renal disease on hemodialysis Thursday, chronic systolic CHF with an ejection fraction of 30-35%, HTN , paroxysmal A. fib, COPD, diabetes mellitus type 2, CAD with history of CABG, PVD, pulmonary hypertension, peripheral neuropathy, GERD, history of CVA, continued tobacco abuse who presented to the emergency department because he was short of breath. The patient is a challenging historian but what I am able to glean from our interview is as follows. The patient states that he has been short of breath for yesterday, or may be a couple days, but today is when it really got bad. He states that he was laying down taking a nap and then when he got up from the nap he all of a sudden couldn't breathe. He states that oxygen makes his breathing better, but nothing makes it worse. He tried his inhalers and this did not help. He reports that he has been attending dialysis as scheduled, and has not missed any recent appointments. Of note, this is his second admission for shortness of breath in the last month, and he has had 2 additional ER visits on top of those 2 admissions within the last month for shortness of breath. Unrelated to his shortness of breath, during our interview , it came out that on Thursday he slipped on ice, hit his head, and is unsure if he lost consciousness. Past medical history: end-stage renal disease on hemodialysis Thursday, chronic systolic CHF with an ejection fraction of 30-35%, HTN, paroxysmal A. fib, COPD, diabetes mellitus type 2, CAD with history of CABG, PVD , pulmonary hypertension, peripheral neuropathy, GERD, history of CVA, continued tobacco abuse Past surgical history: CABG, PCI, AV fistula placement, appendectomy, right great toe amputation, carotid angioplasty, unspecified ocular surgery Family history: Parkinson's, [place], lung cancer Social history: The patient denies any drug or alcohol use. He continues to smoke, currently smoking 3-4 cigarettes a day. Allergies: Tape Review of systems: General: Negative for fever and chills Eyes: Negative for vision changes and ocular discharge ENT: Negative for sore throat and nose bleed Cardiovascular: Negative for chest pain and palpitations Respiratory: Positive for cough, shortness of breath, wheezing GI: Negative for nausea, vomiting, diarrhea, constipation Musculoskeletal: Positive for chronic back pain Skin: Negative for rash Neuro: Positive for headache and dizziness. Negative for numbness and tingling. Psych: Negative for depression and suicidal ideation Endocrine: Negative for polyuria : Negative for dysuria Heme: Negative for bruising and bleeding Home meds: See below Physical exam: Vital signs: Blood pressure 167/76, HR 89, temperature 97.3, O2 sat 92% on 2 L, RR 20 Gen.: awake, alert, no acute distress Eyes: Extraocular movements intact, normal sclera ENT: Moist mucous membranes Cardiovascular: RRR, 3/6 systolic murmur Lungs: shallow breaths, no wheeze Abdomen: Soft, NT/ND, normal BS Musculoskeletal: normal range of motion Extremities: 2+ bilat peripheral edema Neuro: alert and oriented 3, normal speech, no focal deficits Psych: Normal mood with congruent affect Labs and radiology: See below Potassium 5.3 CT of the chest does not show any evidence of CHF, but does note multiple enlarged mediastinal lymph nodes which will need short interval follow-up with repeat CT in 2 months Assessment and plan: 55-year-old male with end-stage renal disease on hemodialysis Thursday, chronic systolic CHF with an ejection fraction of 30-35%, HTN, paroxysmal A. fib, COPD, diabetes mellitus type 2, CAD with history of CABG, PVD , pulmonary hypertension, peripheral neuropathy, GERD, history of CVA, continued tobacco abuse who presented with shortness of breath and is admitted with acute on chronic respiratory failure. 1. Acute on chronic respiratory failure: This appears to be multifactorial in etiology, secondary to his COPD, chronic systolic CHF, pulmonary hypertension. The patient has had multiple ED visits, as well as multiple admissions within the last month for shortness of breath. I suspect that he may need chronic continuous O2 at home. At this time, we will maximize treatment of his underlying issues. 2. COPD exacerbation: DuoNeb scheduled and as needed, Solu-Medrol, Levaquin. Continue home Flovent. May need to consider adding Spiriva. 3. Chronic systolic CHF with ejection fraction of 30-35%: The patient has previously been offered an AICD, and has declined. He tells me again today that he does not want an AICD. He does have some mild edema in his lower extremities , but his chest imaging does not show any evidence of volume overload. At this time, we'll continue him on his home Lasix. 4. End-stage renal disease on hemodialysis: Consult Dr. Oconnell for HD. Continue home vitamin D, fosrenol, Sensipar, and PhosLo. 5. Paroxysmal A. fib: The patient currently appears to be in normal sinus rhythm. We'll monitor him on telemetry, and continue his home metoprolol. Upon questioning, the patient tells me that he is on a blood thinner. He is not sure which one, but when I mention warfarin, he says he thinks that's it. Concomitantly, his says that warfarin is definitely not it, and when I mention eliquis, she states that that is it. On his home med rec, he does not have any blood thinners listed. In the morning, we will have to call his pharmacy and find out what he is supposed to take. 6. Diabetes mellitus type 2: Continue home Levemir 12 units daily. Sliding scale insulin while in-house. 7. CAD with history of CABG, PVD: Continue home aspirin, Plavix, beta lisette, statin. 8. GERD: Continue home PPI. 9. History of CVA: Continue home aspirin, Plavix, and statin. Continue blood pressure control. 10. Hypertension: Continue home minoxidil, ARB, beta lisette, Imdur, Norvasc, Lasix. 11. Recent slip and fall with head injury: The patient states he is unsure if he lost consciousness. He also believes he is on a blood thinner, although I have been unable to confirm this. At this time, we will get a noncontrasted CT of his head to evaluate for any bleed. 12. Multiple enlarged mediastinal nodes: This was seen on the CT of his chest. The radiologist is recommending short interval follow-up with repeat CT in 2 months. 13. Abnormalities of the kidneys: CT of the abdomen and pelvis mentions some concern on his kidneys that could possibly represent cortical neoplasm. The radiologist is recommending an MRI with contrast of the abdomen to further evaluate. DVT prophylaxis: Heparin Dispo: admit as an inpatient to the service of Dr. Chikis Mejia. CODE STATUS: DNR/DNI. Vital Signs see above Laboratory Data Labs 24H Laboratory Tests 2 04/02/16 20:58: Anion Gap 10, White Blood Count 6.1, Red Blood Count 3.39L, Hemoglobin 11.3L, Hematocrit 33.4L, Mean Corpuscular Volume 98.4H, Mean Corpuscular Hemoglobin 33.3H, Mean Corpuscular Hemoglobin Concent 33.8, Red Cell Distribution Width 16.1H, Platelet Count 209, Neutrophils (%) (Auto) 74.8H, Lymphocytes (%) (Auto) 12.2L, Monocytes (%) (Auto) 7.8H, Eosinophils (%) (Auto) 3.7H, Basophils (%) ( Auto) 0.3, Neutrophils # (Auto) 4.6, Lymphocytes # (Auto) 0.8L, Monocytes # ( Auto) 0.5, Eosinophils # (Auto) 0.2, Basophils # (Auto) 0.0, Blood Urea Nitrogen 41H, Creatinine 5.86H, Sodium Level 136, Potassium Level 5.3H, Chloride Level 97L, Carbon Dioxide Level 29, Calcium Level 9.0, Total Creatine Kinase 173, Creatine Kinase MB 5.0H, Creatine Kinase MB Relative Index 2.89, Glomerular Filtration Rate 10.7L, Large Unclassified Cells # 0.1, Large Unclassified Cells % 1.2, Troponin I 0.06 04/02/16 23:28: Arterial Blood pH 7.439, Arterial Blood Partial Pressure CO2 37.2, Arterial Blood Partial Pressure O2 56.0L, Arterial Blood Total CO2 25.8, Arterial Blood HCO3 24.6, Arterial Blood Base Excess 0.7, Arterial Blood Oxygen Saturation 90.3L, Blood Gas Bicarbonate Standard 24.9, Oxygen Delivery Device NASAL IRON CBC/BMP Laboratory Tests 04/02/16 20:58 Calcium Level 9.0, Total Creatine Kinase 173, Red Blood Count 3.39 L, Mean Corpuscular Volume 98.4 H, Mean Corpuscular Hemoglobin 33.3 H, Mean Corpuscular Hemoglobin Concent 33.8, Red Cell Distribution Width 16.1 H, Neutrophils (%) ( Auto) 74.8 H, Lymphocytes (%) (Auto) 12.2 L, Monocytes (%) (Auto) 7.8 H, Eosinophils (%) (Auto) 3.7 H, Basophils (%) (Auto) 0.3, Neutrophils # (Auto) 4.6 , Lymphocytes # (Auto) 0.8 L, Monocytes # (Auto) 0.5, Eosinophils # (Auto) 0.2, Basophils # (Auto) 0.0 Microbiology Microbiology 04/02/16 Blood Culture, Received Pending 04/02/16 Blood Culture, Received Pending Home Medications Scheduled (Lidocaine/Prilocaine 2.5-2.5 %) 1 Cre Cre 1 DOSE EXT 1XWK APPLIES TO ACCESS SITE ON ARM, ONE HOUR BEFORE DIALYSIS ON TUESDAYS Amlodipine Besylate (Amlodipine Besylate) 10 Mg Tab 10 MG PO DAILY Aspirin (Aspirin) 325 Mg Tab 325 MG PO DAILY Aspirin (Aspirin) 325 Mg Tab 325 MG PO DAILY Atorvastatin Calcium (Atorvastatin Calcium) 40 Mg Tab 40 MG PO DAILY Calcium Acetate (Calcium Acetate) 667 Mg Cap 2,668 MG PO WM Cinacalcet Hydrochloride (Sensipar) 30 Mg Tab 30 MG PO DAILY Clopidogrel Bisulfate (Clopidogrel) 75 Mg Tab 75 MG PO DAILY Fluticasone Propionate (Flovent Hfa 110 MCG) 120 Puff/12 Gm Aero 2 PUFF INH BID Furosemide (Furosemide) 20 Mg Tab 80 MG PO DAILY Insulin Detemir (Levemir) 1 Units/0.01 Ml Susp 12 UNITS SC DAILY Insulin Human Lispro (Humalog) 1 Units/0.01 Ml Inj 1 DOSE SC AC PER SLIDING SCALE Isosorbide Mononitrate (Isosorbide Mononitrate ER) 60 Mg Tab 60 MG PO DAILY Lanthanum Carbonate (Fosrenol) 1,000 Mg Chw 1,000 MG PO WM Losartan Potassium (Losartan Potassium) 100 Mg Tab 100 MG PO DAILY Metoprolol Tartrate (Metoprolol Tartrate) 50 Mg Tab 50 MG PO BID Minoxidil (Minoxidil) 2.5 Mg Tab 5 MG PO BID Lorenzo 3 Polyunsat Fatty Acids (Lovaza 1 gm) 1 Cap Cap 2 CAP PO DAILY Omeprazole (Omeprazole) 40 Mg Cap 40 MG PO DAILY Prednisone (Prednisone) 20 Mg Tab 40 MG PO DAILY 4 DAY SUPPLY: ONE DOSE LEFT Vitamin D (Vitamin D) 2,000 Unit Cap 2,000 UNIT PO Q2D Scheduled PRN Albuterol Sulfate (Proair Hfa) 108 Mcg/Act Aer 2 PUFF INH Q4H PRN PRN SHORTNESS OF BREATH Allergies Coded Allergies: Pregabalin (Unverified Allergy, Intermediate, FEET SWELLING, 04/03/16) Mushroom (Unverified Allergy, Unknown, 04/03/16) No Known Drug Allergy (Verified Allergy, Unknown, 06/09/12) TAPE (Unverified Allergy, Unknown, 07/10/15) TJ BAHENA Apr 03, 2016 02:39
--- NOTE | 2016-04-03 02:40 | REPUSA ---
CLINICAL HISTORY: Trauma. TECHNIQUE: Multiple axial CT images were obtained through the brain without IV contrast material. COMMENTS: Right parietal chronic encephalomalacia. There is normal configuration of sella turcica. There are no intra or extra-axial collections. There is no mass effect or midline shift. There is no evidence of hematoma formation. No hydrocephalus is p resent. The ventricles are symmetrical. No abnormal calcifications are present. There is diffuse age-appropriate cerebellar and cerebral atrophy with proportionally dilated ventricl es and cortical sulci. There are bilateral periventricular and subcortical white matter hypolucencies compatible with mild c hronic microvascular disease. Otherwise, no significant focal abnormalities are seen either in the posterior fossa or supratentoria l compartment. IMPRESSION: 1. Age-appropriate cerebellar and cerebral atrophy. Right parietal chronic encephalomalacia. 2. Mild chronic microvascular disease. 3. No evidence of acute intracranial pathology. Thank you for your kind referral of this patient.
[2016-04-03] MEDS ORDERED: PERCOCET 5MG/325MG TAB As Ordered ONE (03:34)
[2016-04-03] MEDS: PERCOCET 5MG/325MG TAB PO PRN ×2 (03:36→21:23)
[2016-04-03 03:50] VITALS: BP 188/87
[2016-04-03] MEDS ORDERED: LevoFLOXacin IV 500 MG in APPROPRIATE DILUENT 1 EA IV SCH (04:00)
[2016-04-03] MEDS ORDERED: LevoFLOXacin(LEVAQUIN)500 MG/100 ML BAG (J1956) As Ordered ONE (04:06)
[2016-04-03] MEDS ORDERED: methylPREDNISolone INJ 125 MG/2 ML VIAL (J2930) As Ordered ONE (04:06)
[2016-04-03] MEDS: methylPREDNISolone INJ 125 MG/2 ML VIAL (J2930) IV SCH ×3 (04:16→21:21)
[2016-04-03 05:39] LABS: INR 0.98
[2016-04-03] MEDS ORDERED: HEPARIN SOD (PORCINE) 5000 UNITS/ML VIAL As Ordered ONE (06:35)
[2016-04-03] MEDS ORDERED: LEVEMIR (INSULIN DETEMIR) 1 UNITS/0.01ML As Ordered ONE (06:39)
[2016-04-03] MEDS: FLUTICASONE HFA 110 MCG 12 GM INHALER (FLOVENT) INH SCH ×2 (06:50→20:57)
[2016-04-03] MEDS: IPRATROPIUM 0.5MG/ALBUTEROL 2.5MG INH SOL UD 3ML (DUONEB)(J7620) NEB SCH ×3 (06:50→20:15)
[2016-04-03] MEDS: HEPARIN SOD (PORCINE) 5000 UNITS/ML VIAL SC SCH ×3 (07:10→21:22)
[2016-04-03] MEDS: FUROSEMIDE 20 MG TAB PO SCH (07:13)
[2016-04-03] MEDS: VITAMIN D 1,000 INTERNATIONAL UNITS TABLET PO SCH (07:13)
[2016-04-03] MEDS: ASPIRIN 325 MG TAB PO SCH (07:13)
[2016-04-03] MEDS: OMEGA-3 1050MG CAPSULE PO SCH (07:13)
[2016-04-03] MEDS: LANTHANUM CARBONATE 500 MG CHEW TABLET PO SCH ×3 (07:15→18:28)
[2016-04-03] MEDS: METOPROLOL TART 50 MG TAB PO SCH ×2 (07:15→21:22)
[2016-04-03] MEDS: CLOPIDOGREL 75 MG TAB PO SCH (07:15)
[2016-04-03] MEDS: ATORVASTATIN 20 MG TAB PO SCH (07:16)
[2016-04-03] MEDS: LOSARTAN 50 MG TAB PO SCH (07:16)
[2016-04-03] MEDS: CALCIUM ACETATE 667 MG GELCAP PO SCH ×3 (07:17→18:28)
[2016-04-03] MEDS: MINOXIDIL 2.5 MG TAB PO SCH ×2 (07:17→21:22)
[2016-04-03] MEDS: OMEPRAZOLE 20 MG CAP PO SCH (07:18)
[2016-04-03] MEDS: CINACALCET 30 MG TAB (SENSIPAR) PO SCH (07:18)
[2016-04-03] MEDS: ISOSORBIDE MON. (IMDUR) 60 MG XR TAB PO SCH (07:18)
--- NOTE | 2016-04-03 07:27 | ECGEPIP ---
Stationary ECG Study [facility] - ED Test Date: 2016-04-02 Pat Name: JOHNNY GILES Department: Room: [place] [address] Gender: M Biomedical Specialist: melissa : 1960 Requested By: Cristino Briceno Order Number: [id number] Reading MD: Elissa Medellin Measurements Intervals Tyler Rate: 84 P: -16 NC: 133 QRS: 228 QRSD: 153 T: 45 QT: 384 QTc: 454 Interpretive Statements SINUS RHYTHM POSSIBLE LEFT ATRIAL ENLARGEMENT INDETERMINATE AXIS RIGHT BUNDLE BRANCH BLOCK AND POSSIBLE RIGHT VENTRICULAR HYPERTROPHY SIMILAR 03/29/16 Electronically Signed On 04-03-2016 7:27:09 EST by Elissa Medellin
[2016-04-03] MEDS: HumaLOG INSULIN (NovoLOG) PER UNIT SC SCH ×4 (07:30→21:24)
[2016-04-03] MEDS: amLODIPine 10 MG TAB PO SCH (07:49)
[2016-04-03 08:00] VITALS: BP 183/82
[2016-04-03] MEDS ORDERED: LEVEMIR (INSULIN DETEMIR) 1 UNITS/0.01ML SC SCH (09:00)
--- NOTE | 2016-04-03 09:44 | REP ---
Chest x-ray: Two views. History: Shortness of breath. Comparison chest x-ray is from March 29, 2016. Findings: Cardiomegaly, prior sternotomy wires and right paratracheal soft tissue widening are again seen unchanged. Mediastinal fullness behind the heart is again seen unchanged. Interstitial markings are slightly prominent question early interstitial edema. There is cephalization of the pulmonary vasculature. No kristina pleural effusion seen. Impression: No significant change from March 29, 2016. Signed by Yeison Krishnan MD 04/03/2016 10:38 A
[2016-04-03] MEDS ORDERED: HEPARIN 1,000 UNITS/ML 10ML VIAL (FOR RADIOLOGY& DIALYSIS ONLY) IV ONE (11:00)
--- NOTE | 2016-04-03 11:32 | CR.PDOC ---
[facility] Consultation Consultation DATE OF ADMISSION: 04/03/2016 DATE OF CONSULTATION: 04/03/2016 REQUESTING PROVIDER: Dr. Chikis Mejia CONSULTING PROVIDER: Dr. Enmanuel Oconnell REASON FOR CONSULTATION/CHIEF COMPLAINT: ESRD on hemodialysis HISTORY OF PRESENT ILLNESS: Mr. Rivera is a 55-year-old male with past medical history of end-stage renal disease on hemodialysis, systolic heart failure, coronary artery disease status post CABG, paroxysmal atrial fibrillation, peripheral vascular disease, diabetes, pulmonary hypertension, COPD and GERD who presented to the emergency department with complaints of dyspnea. He presented about 10 days ago with similar complaints. He reports that he was just laying in bed when his shortness of breath started yesterday. He denied any chest pain or increased lower extremity edema. He reports that he is not drinking fluids although he has a history of noncompliance with fluid intake. He tried using his inhalers but that did not provide any significant relief. He was seen this morning in the dialysis unit. He reports that his breathing is a little bit better now that he is on supplemental oxygen. He denies any chest pain, chest pressure, palpitations, fever, chills, nausea, vomiting, diarrhea, abdominal pain, headache or dizziness. Nephrology consult was requested as he requires hemodialysis to maintain his volume status. PAST MEDICAL HISTORY: 1. End-stage renal disease on hemodialysis Thursday, , Thursday. 2. Systolic heart failure (CHF), EF of 30-35%, declined AICD. 3. Paroxysmal atrial fibrillation. 4. Chronic obstructive pulmonary disease. 5. Type 2 diabetes. 6. CAD status post CABG. 7. Peripheral vascular disease. 8. Pulmonary hypertension. 9. Peripheral neuropathy. 10. Gastroesophageal reflux disease. 11. History of CVA. 12. Tobacco abuse. PAST SURGICAL HISTORY: 1. CABG, angioplasty and coronary stents. 2. Left arteriovenous (AV) fistula placement. 3. Appendectomy. 4. Right great toe amputation. 5. Carotid angioplasty. 6. Eye surgery. ALLERGIES: Pregabalin, tape. HOME MEDICATIONS: Please see below. FAMILY HISTORY: No known renal disease. Father had CAD and CHF. Mother had diabetes and COPD. Sister had lung cancer. SOCIAL HISTORY: Patient continues to smoke, about 3-4 cigarettes a a day currently but used to smoke several packs a day for 40 years. Denies any alcohol use or illicit drugs. 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 REVIEW OF SYSTEMS: CONSTITUTIONAL: No fevers, chills or night sweats. No fatigue. HEENT: Denies headaches, lightheadedness, dizziness, acute changes to vision or hearing. CARDIOVASCULAR: Positive for shortness of breath. No chest pain or palpitations. Positive for lower extremity edema. PULMONARY: Positive for cough and shortness of breath. No hemoptysis. GASTROINTESTINAL: Denies nausea, vomiting, abdominal pain, diarrhea, hematochezia or melena. GENITOURINARY: No change in urinary frequency. No dysuria or hematuria. MUSCULOSKELETAL: Has chronic back pain. No unusual muscle or joint pains. ENDOCRINE: Positive for diabetes. No thyroid disorder. HEMATOLOGY: No excessive bleeding or bruising. NEUROLOGICAL: No syncope. No gait disturbance. PHYSICAL EXAMINATION: Vital Signs Date Time Temp Pulse Resp B/P Pulse Ox O2 Delivery O2 Flow Rate FiO2 04/03/16 08:00 Nasal Cannula 2.0 04/03/16 07:49 86 183/82 04/03/16 04:24 20 04/03/16 03:50 95.7 99 GENERAL: Patient is lying in bed comfortably. In no acute distress. HEENT: Normocephalic, atraumatic. Extraocular movement intact. Pupils are round and reactive to light. No scleral icterus. Moist mucosa. NECK: Supple. No thyromegaly. Jugular venous pulsations are elevated. HEART: Normal S1, S2. Regular rate and rhythm. Positive for systolic ejection murmur. LUNGS: Positive for faint rales in the lower bases. Also diminished in the lower bases. ABDOMEN: Soft. Nontender, nondistended. Bowel sounds are present. No rebound, guarding or rigidity. EXTREMITIES: +2 lower extremity edema. No cyanosis. Positive pedal pulses bilaterally. SKIN: Warm and dry. Good skin turgor. No rashes noted. NEUROLOGIC: No focal deficits. Cranial nerves II through XII are grossly intact. Moving all extremities. LABORATORY DATA: 04/02/16 20:58 Red Blood Count 3.39 L, Mean Corpuscular Volume 98.4 H, Mean Corpuscular Hemoglobin 33.3 H, Mean Corpuscular Hemoglobin Concent 33.8, Red Cell Distribution Width 16.1 H, Anion Gap 10, Calcium Level 9.0, Total Creatine Kinase 173, Creatine Kinase MB 5.0H, Creatine Kinase MB Relative Index 2.89, Glomerular Filtration Rate 10.7L, Troponin I 0.06 04/02/16 23:28: Arterial Blood pH 7.439, Arterial Blood Partial Pressure CO2 37.2, Arterial Blood Partial Pressure O2 56.0L, Arterial Blood Total CO2 25.8, Arterial Blood HCO3 24.6, Arterial Blood Base Excess 0.7, Arterial Blood Oxygen Saturation 90.3L, Blood Gas Bicarbonate Standard 24.9, Oxygen Delivery Device NASAL CANNULA 04/03/16 05:20: Total Creatine Kinase 143, Creatine Kinase MB 3.9H, Creatine Kinase MB Relative Index 2.72, Troponin I 0.07, Prothrombin Time International Ratio 0.98, Prothrombin Time 13.1 MICROBIOLOGY: Blood Cultures pending. IMAGING: Chest x-ray shows cardiomegaly, mediastinal fullness behind the heart that is unchanged, interstitial markings are slightly more prominent questioning interstitial edema, cephalization of the pulmonary vasculature, no kristina pleural effusion. Chest CT revealed multiple prominent some mildly enlarged mediastinal nodes, bilateral renal atrophy with scarring and multiple cysts Abdomen/pelvis CT revealed no definite evidence of abdominal pelvic adenopathy, periaortic structures in the upper abdomen are likely tortuous venous channels Head CT revealed age appropriate cerebellar and cerebral atrophy, right parietal chronic encephalomalacia, mild chronic microvascular disease IMPRESSION/PLAN: 1. Shortness of breath, likely secondary to fluid overload. Clinically, he appears volume overloaded with jugular venous distention and lower extremity edema. He is currently being dialyzed and we will reassess his volume status to see if more fluid needs to be removed. Patient has history of noncompliance with oral intake at home and repeatedly found to have increased weight during dialysis despite stating that he does not drink fluids at home. 2. End-stage renal disease. Patient receives hemodialysis on Thursday, , and Saturdays. This is his normal dialysis day. Goal is to remove 6 L. We will see if more fluid needs to be removed tomorrow. 3. Hyperkalemia. Patient has a potassium of 5.3. This should be corrected with hemodialysis. 4. Chronic systolic heart failure. Ejection fraction in July 2015 was 30-35%. He has apparently declined AICD placement. We will attempt to correct his fluid status with hemodialysis. He remains on his home dose of Lasix. 5. History of COPD. Breathing treatments as needed. It appears that his shortness of breath is more likely secondary to fluid overload. Nonetheless, he is being treated for COPD exacerbation. He is also on Levaquin, being managed by primary team. 6. Abnormal CT. Chest CT showed multiple enlarged mediastinal nodes and his abdominal CT showed bilateral renal atrophy with scarring and multiple cysts that are more nodular in appearance and needing to rule our renal neoplasm. Imaging with contrast has been ordered to further evaluate. Should be done prior to hemodialysis. 7. Anemia in end-stage renal disease. Hemoglobin is currently stable. No intervention needed at this time 8. Hypertension. Continue Norvasc, Imdur, Lopressor, Minoxidil, Cozaar and Lasix. 9. History of hyperphosphatemia and secondary hyperparathyroidism. He is being dialyzed today. Continue with Phoslo, Sensipar and Fosrenol. 10. Diabetes. Controlled. Continue home insulin. 11. Paroxysmal atrial fibrillation. Currently in sinus rhythm, rate is controlled. 12. Coronary artery disease and peripheral vascular disease. Continue with aspirin, Plavix, statin and beta lisette. Thank you for the consultation and allowing us participate in the care of Mr. Rivera. We will continue to follow along with you. Allergies Coded Allergies: Pregabalin (Unverified Allergy, Intermediate, FEET SWELLING, 04/03/16) Mushroom (Unverified Allergy, Unknown, 04/03/16) No Known Drug Allergy (Verified Allergy, Unknown, 06/09/12) TAPE (Unverified Allergy, Unknown, 07/10/15) Home Medications Scheduled (Lidocaine/Prilocaine 2.5-2.5 %) 1 Cre Cre 1 DOSE EXT 1XWK (Reported) APPLIES TO ACCESS SITE ON ARM, ONE HOUR BEFORE DIALYSIS ON TUESDAYS Amlodipine Besylate (Amlodipine Besylate) 10 Mg Tab 10 MG PO DAILY (Reported) Aspirin (Aspirin) 325 Mg Tab 325 MG PO DAILY (Reported) Aspirin (Aspirin) 325 Mg Tab 325 MG PO DAILY (Reported) Atorvastatin Calcium (Atorvastatin Calcium) 40 Mg Tab 40 MG PO DAILY (Reported ) Calcium Acetate (Calcium Acetate) 667 Mg Cap 2,668 MG PO WM (Reported) Cinacalcet Hydrochloride (Sensipar) 30 Mg Tab 30 MG PO DAILY (Reported) Clopidogrel Bisulfate (Clopidogrel) 75 Mg Tab 75 MG PO DAILY (Reported) Fluticasone Propionate (Flovent Hfa 110 MCG) 120 Puff/12 Gm Aero 2 PUFF INH BID (Reported) Furosemide (Furosemide) 20 Mg Tab 80 MG PO DAILY (Reported) Insulin Detemir (Levemir) 1 Units/0.01 Ml Susp 12 UNITS SC DAILY (Reported) Insulin Human Lispro (Humalog) 1 Units/0.01 Ml Inj 1 DOSE SC AC (Reported) PER SLIDING SCALE Isosorbide Mononitrate (Isosorbide Mononitrate ER) 60 Mg Tab 60 MG PO DAILY ( Reported) Lanthanum Carbonate (Fosrenol) 1,000 Mg Chw 1,000 MG PO WM (Reported) Losartan Potassium (Losartan Potassium) 100 Mg Tab 100 MG PO DAILY (Reported) Metoprolol Tartrate (Metoprolol Tartrate) 50 Mg Tab 50 MG PO BID (Reported) Minoxidil (Minoxidil) 2.5 Mg Tab 5 MG PO BID (Reported) [place] 3 Polyunsat Fatty Acids (Lovaza 1 gm) 1 Cap Cap 2 CAP PO DAILY (Reported ) Omeprazole (Omeprazole) 40 Mg Cap 40 MG PO DAILY (Reported) Prednisone (Prednisone) 20 Mg Tab 40 MG PO DAILY (Reported) 4 DAY SUPPLY: ONE DOSE LEFT Vitamin D (Vitamin D) 2,000 Unit Cap 2,000 UNIT PO Q2D (Reported) Scheduled PRN Albuterol Sulfate (Proair Hfa) 108 Mcg/Act Aer 2 PUFF INH Q4H PRN PRN SHORTNESS OF BREATH (Reported) GME ATTESTATION GME ATTESTATION My preceptor for this patient encounter was physically present in the building during the encounter and was fully available. As needed, all aspects of the patient interview, examination, medical decision making process, and medical care plan development were reviewed and approved by the preceptor. Preceptor is aware and concurs with the plan as stated in the body of this note and will attest to such by his/her cosignature. MADELAINE WEBBER DO Apr 03, 2016 11:32
[2016-04-03 13:43] VITALS: BP 156/70
--- NOTE | 2016-04-03 13:52 | EDDOCDS ---
Physician Documentation [facility] Name: Antonio Rivera Age: 55 yrs Sex: Male : 1960 Arrival Date: 04/02/2016 Time: 20:17 Bed Admit Hold Private MD: Tonny Cartwright Disposition: 04/03 01:24 Critical Care:. pc Disposition: 04/03/16 01:27 Hospitalization ordered by Cheryle Mason for Inpatient Admission. Preliminary diagnosis are Chronic obstructive pulmonary disease with (acute) exacerbation, End stage renal disease. - Bed requested for PCU. - Status is Inpatient Admission. nr1 - Condition is Stable. - Problem is new. - Symptoms have improved. HPI: 04/02 20:45 This 55 yrs old Male presents to ER via Ambulance with complaints of pc Breathing Difficulty. 20:45 The history is obtained from the patient, the patient's spouse. The patient presents pc with shortness of breath, with a prior history of COPD, congestive heart failure. The symptoms began suddenly just prior to arrival. The symptoms He was lying down and suddenly had to sit up, gasping for air. His called EMS. He denies any chest pain. He has not had any recent fevers or chills, URI symptoms. He has chronic pedal edema but says he has been following his renal diet and CHF fluid restrictions. He had dialysis yesterday, wit 7000mL removed, which is his normal. He still makes urine, 2-3 times per day, which has not changed.. There were no precipitating events that led to the current complaints. At their worst, the symptoms were moderate. In the emergency department, the symptoms have resolved. The patient has experienced similar episodes in the past, multiple times. The patient has been recently been admitted at [facility], was discharged a couple of weeks ago, for similar complaints. Historical: - Allergies: mushrooms; Tape; - Home Meds: 1. albuterol sulfate 90 mcg/actuation Inhl HFAA 2 puffs every 4-6 hours (Last dose: 04/02/2016 20:15) 2. amlodipine 10 mg oral tab 1 tab once daily (Last dose: 04/02/2016 08:00) 3. prednisone 20 mg Oral tab 2 tabs once daily (Last dose: 04/02/2016 08:00) 4. Vitamin D3 4,000 unit oral cap daily 5. omeprazole 40 mg Oral cpDR 1 cap once daily (Last dose: 04/02/2016 08:00) 6. Vitamin D Oral 2000 unit daily (Last dose: 04/02/2016 08:00) 7. [place] 3 Fish Oil 900-1,400 mg oral cpDR twice a day 8. aspirin 325 mg Oral tab 1 tab once daily (Last dose: 04/02/2016 08:00) 9. isosorbide mononitrate 60 mg Oral Tb24 1 tab once daily (Last dose: 04/02/2016 08:00) 10. clopidogrel 75 mg oral tab 1 tab once daily (Last dose: 04/02/2016 08:00) 11. calcium acetate 667 mg oral cap 4 caps 3 times per day 12. minoxidil 2.5 mg Oral tab 2 tabs 2 times per day 13. Sensipar 30 mg oral tab 1 tab once daily 14. Flovent 110 mcg/actuation Inhl aero 2 puffs 2 times per day 15. furosemide 20 mg Oral tab 4 tab once daily (Last dose: 04/02/2016 08:00) 16. Levemir FlexTouch 100 unit/mL (3 mL) subcutaneous inpn 12 unit daily (Last dose: 04/02/2016 08:00) 17. Humalog Pen sliding scale Sub-Q three times a day 18. atorvastatin 40 mg oral tab 1 tab once daily 19. losartan 100 mg oral tab 1 tab once daily 20. Lopressor 50 mg Oral tab 2 times per day - PMHx: Asthma; CHF; COPD; Diabetes - IDDM: controlled; GERD; Heart Disease; Renal Failure with Dialysis; Stroke; - PSHx: Appendectomy; Tonsillectomy; Adenoidectomy; Open heart surgery; Cardiac stents; toe removed from right foot; shunt placements and revisions; fistula, left arm; - The history from nurses notes was reviewed: and I agree with what is documented. - Social history: Smoking status: Patient uses tobacco products, light tobacco smoker. No barriers to communication noted, The patient speaks fluent Sinhala. - Family history: No immediate family members are acutely ill. - : The pt / caregiver states he / she is on anticoagulants: Plavix. Home medication list is obtained from the patient, appsplit import data, pill bottles. - Hospitalizations: : The patient was recently seen at [facility]. - Exposure Risk Screening:: None identified. - Immunization history:: All immunizations up-to-date. - Social history:: the patient is a former smoker, the patient does not drink alcohol. ROS: 20:45 All systems are negative except as listed. The gastrointestinal and genitourinary pc components are also addressed in the HPI. Exam: 20:45 General Appearance: no acute distress, alert. pc 20:45 EENT: ears, nose and throat normal, pharynx normal, mucous membranes moist pale conjunctiva. 20:45 Neck: normal inspection. 20:45 Respiratory: no respiratory distress, no pleuritic chest pain, speaks in full sentences, auscultation reveals rales, in the left posterior lower lobe and right posterior lower lobe. 20:45 Cardiovascular: normal heart rate, normal rhythm, no jugular venous distension appreciated, no murmurs, no gallop, no friction rub. 20:45 Abdomen: non-tender, non-distended, no organomegaly. 20:45 Skin: normal color, warm, dry. 20:45 Extremities: non-tender, normal range of motion of all joints, pedal edema is present and is 2 +. 20:45 Neuro: alert, oriented to person, place and time. 20:45 Psych: normal mood. Vital Signs: 20:33 BP 160 / 70; Pulse 85; Resp 20; Temp 97.3(O); Pulse Ox 98% on R/A; Weight 106.14 kg / mlc 234 lbs; Height 6 ft. 3 in. (190.50 cm); Pain 0/10; 20:40 BP 155 / 72 (auto/); mlc 20:40 Pulse 86 MON; Pulse Ox 97% ; mlc 21:12 Weight 106.59 kg / 234.99 lbs (M); mlc 21:19 BP 183 / 77 (auto/); mlc 21:19 Pulse 84 MON; Pulse Ox 93% ; mlc 21:25 BP 185 / 79 (auto/); mlc 21:54 Pulse 84 MON; Pulse Ox 95% ; mlc 21:54 BP 178 / 80 (auto/); mlc 22:10 BP 173 / 74 (auto/); mlc 22:10 Pulse 82 MON; Pulse Ox 94% ; mlc 22:19 Pulse 84 MON; Pulse Ox 97% ; mlc 22:25 BP 167 / 73 (auto/); mlc 22:25 Pulse 84 MON; Pulse Ox 97% ; mlc 22:40 Pulse 86 MON; Pulse Ox 86% ; mlc 22:40 BP 162 / 72 (auto/); mlc 22:55 Pulse 86 MON; Pulse Ox 90% ; mlc 22:55 BP 159 / 70 (auto/); mlc 23:10 BP 177 / 79 (auto/); mlc 23:11 Pulse 88 MON; Pulse Ox 90% ; mlc 23:25 BP 175 / 87 (auto/); mlc 23:26 Pulse 88 MON; Pulse Ox 91% ; mlc 23:40 BP 165 / 76 (auto/); mlc 23:41 Pulse 86 MON; Pulse Ox 90% ; mlc 23:55 BP 191 / 85 (auto/); mlc 23:56 Pulse 88 MON; Pulse Ox 95% ; mlc 04/03 00:14 Pulse 88 MON; Pulse Ox 98% ; mlc 00:25 BP 190 / 78 (auto/); mlc 00:26 Pulse 84 MON; Pulse Ox 96% ; mlc 00:40 BP 169 / 74 (auto/); mlc 00:41 Pulse 86 MON; Pulse Ox 97% ; mlc 00:55 BP 169 / 78 (auto/); mlc 00:56 Pulse 86 MON; Pulse Ox 95% ; mlc 01:10 BP 153 / 70 (auto/); mlc 01:11 Pulse 86 MON; Pulse Ox 94% ; mlc 01:25 Pulse 86 MON; Pulse Ox 93% ; mlc 01:25 BP 170 / 79 (auto/); mlc 01:40 BP 167 / 76 (auto/); mlc 01:41 Pulse 90 MON; Pulse Ox 90% ; mlc 03:00 Pulse 86 MON; Pulse Ox 98% ; [facility] [place] 04/02 21:12 Body Mass Index 29.37 (106.59 kg, 190.50 cm) mlc MDM: 04/02 20:45 -Blood Culture (Adults Only), peripheral from different site, or from device/port/PICC pc etc. if present ordered. 20:45 Felt Hat Steamer/Pulse Ox/q 15 min VS ordered. pc 20:45 IV Saline Lock ordered. pc 20:45 Rhythm Strip to chart ordered. pc 20:45 Weigh Pt on scale, in Kg (Do Not Use Reported Weight) ordered. pc 20:45 Differential diagnosis: CHF, Chronic Obstructive Pulmonary Disease pulmonary edema, pc Unstable Angina ESRD, AoCD. Plan: labs, EKG, CXR. 20:46 Basic Metabolic Profile Ordered. EDMS 20:46 CBC with Diff Ordered. EDMS 20:46 Cardiac Injury Profile Ordered. EDMS 20:46 Troponin Ordered. EDMS 20:46 -Blood Culture (Adults Only), peripheral from different site, or from device/port/PICC ml3 etc. if present complete. 20:46 -Blood Culture Ordered. EDMS 20:47 Chest, 2 View (pa\E\lat) Ordered. EDMS 20:47 ECG WITH READING ER PHYS+CARDIAG ordered. EDMS 20:48 BLOOD CULTURES Ordered. EDMS 21:05 Financial registration complete. gjb 21:08 [facility] Payment Agreement was scanned into [employer] and attached to record. gjb 21:19 Test interpretation: EKG. pc 22:27 Basic Metabolic Profile Reviewed. pc 22:27 CBC with Diff Reviewed. pc 22:27 Cardiac Injury Profile Reviewed. pc 22:27 Troponin Reviewed. pc 22:32 CT ABD & PELVIS: No Contrast Ordered. EDMS 22:32 CT Chest Without Contrast Ordered. EDMS 23:12 Call Respiratory ordered. pc 23:12 Call Respiratory complete. ml3 23:29 -Arterial Blood Gas Ordered. EDMS 23:57 -Arterial Blood Gas Reviewed. pc 23:57 Oxygen at 2L/min via NC ordered. pc 23:57 Furosemide 40 mg IVP once ordered. pc 04/03 01:07 CT ABD & PELVIS: No Contrast Reviewed. pc 01:07 CT Chest Without Contrast Reviewed. pc 01:23 BED REQUEST+ADM ordered. EDMS 01:24 Antibiotic administration: Not indicated, the patient does not have an appreciated pc infiltrate. Data reviewed: old medical records, vital signs, nurses notes, lab test results, all radiology studies and available results. Data reviewed: EKG(s). Test interpretation: LAB - all labs as ordered have been reviewed, interpreted and considered in the overall management of the clinical presentation; X-RAY - interpreted by Radiologist and personally reviewed, 1 view chest COPD, chronic interstitial changes, ?retrocrural nodes and CT recommended. Test interpretation: Arterial blood gas is normal except. pO2: 56 interpreted by Radiologist and personally reviewed, Abdomen/Pelvis CT; atrophic kidneys Chest CT; mild lymph adenopathy, no CHF. The patient has been re-examined and re-evaluated. The patient's symptoms have mildly improved after treatment. Physician consultation: Dr. Cheryle Mason was contacted at :, regarding admission, and will see patient in ED, shortly. Disposition: The historical points, examination findings, and any diagnostic results supporting the provided diagnosis, were discussed with the patient or legal guardian. The need for further work-up and/or treatment in the hospital was explained. 02:11 Admission / Observation Status ordered. EDMS 02:11 CT Head without contrast Ordered. EDMS 02:11 CONSISTENT CARBOHYDRATES ordered. EDMS 02:12 CARDIAC MARKER PANEL Ordered. EDMS 02:13 CARDIAC MARKER PANEL Ordered. EDMS 02:13 CARDIAC MARKER PANEL Ordered. EDMS 02:30 PROTHROMBIN TIME PROFILE\E\INR Ordered. EDMS 06:53 Fingerstick Blood Sugar Ordered. EDMS 09:53 CT ABD & PELVIS WITH CONTRAST Ordered. EDMS 09:53 CT Chest with contrast Ordered. EDMS EC/25 21:19 Rate is 84 beats/min. Rhythm is regular, Normal Sinus Rhythm. Left axis deviation pc noted. QRS is negative in leads II, aVF. AL interval is normal. QRS interval is prolonged at 153 msec. QT interval is normal. No Q waves. T waves are Normal. ST Segment is depressed in leads I, II, aVF, V3, V4, V5, V6, <1mm. Clinical impression: Normal Sinus Rhythm, Nonspecific ST-T changes, and RBBB. No change from previous ECG on March 29, 2016. Administered Medications: 04/03 00:10 Drug: Furosemide 40 mg [furosemide 10 mg/mL injection solution (4 mL)] Route: IVP; [facility] [place] Site: right antecubital; Critical Care Time: 24 Critical care time: Bedside Care: 30 minutes, Consultation: 10 minutes, Family pc Intervention: 15 minutes. Total time: 55 minutes Signatures: Dispatcher [employer] EDNH Cristino Brewer MD MD pc Lopresti, Mary-Elizabeth, Accounts Receivable Manager Unit ml3 Emily Peña RN RN [facility] [place] Alana Kaiser RN RN nr1 Beck, Gabriela gjb Andrews, Steven, RN RN sa The chart was reviewed and I authenticate all verbal orders and agree with the evaluation and treatment provided.Corrections: (The following items were deleted from the chart) 04/02 23:24 23:13 ARTERIAL BLOOD GAS+LAB ordered. EDMS EDMS Attachments: 21:08 [facility] Payment Agreement gjb [email or web address]
--- NOTE | 2016-04-03 13:53 | EDDOCDS ---
Nurse's Notes [facility] Name: Antonio Rivera Age: 55 yrs Sex: Male : 1960 Arrival Date: 04/02/2016 Time: 20:17 Bed Admit Hold Private MD: Tonny Cartwright Diagnosis: Chronic obstructive pulmonary disease with (acute) exacerbation;End stage renal disease Presentation: 04/02 20:20 Presenting complaint: EMS states: increased SOB over past few days. pt took 4x mlc albuterol inhaler at home. Adult Sepsis Screening: The patient does not have new or worsening altered mentation. Patient's respiratory rate is less than 22. Status: Patient is not a gas refrigerator servicer or dependent. Transition of care: patient was not received from another setting of care. Care prior to arrival: Glucose check. 200. 20:20 [place] [facility] [place] Acuity: [place] Level 3 [facility] [place] Adult Sepsis Screening: Patient has a qSOFA score of 0- Negative Sepsis Screen. [facility] [place]icide/Homicide risk assessment- the patient denies having any suicidal and/or homicidal ideations and does not present with any other emotional, behavioral or mental health complaints. Triage Assessment: 20:33 General: Appears in no apparent distress, comfortable, Behavior is cooperative, pt mlc watching tv. Pain: Denies pain. HIV screening NA for this visit Offered previously. The patient is triaged at the bedside. See Assessment in Nurses Notes section of ED record. Neurological: Level of Consciousness is awake, alert, Oriented to person, place, time. Cardiovascular: Rhythm is regular. Respiratory: Onset: The symptoms/episode began/occurred today, Airway is patent Respiratory effort is even, unlabored, Respiratory pattern is regular, Reports cough that is non-productive. Derm: Skin is normal. Historical: - Allergies: mushrooms; Tape; - Home Meds: 1. albuterol sulfate 90 mcg/actuation Inhl HFAA 2 puffs every 4-6 hours (Last dose: 04/02/2016 20:15) 2. amlodipine 10 mg oral tab 1 tab once daily (Last dose: 04/02/2016 08:00) 3. prednisone 20 mg Oral tab 2 tabs once daily (Last dose: 04/02/2016 08:00) 4. Vitamin D3 4,000 unit oral cap daily 5. omeprazole 40 mg Oral cpDR 1 cap once daily (Last dose: 04/02/2016 08:00) 6. Vitamin D Oral 2000 unit daily (Last dose: 04/02/2016 08:00) 7. [place] 3 Fish Oil 900-1,400 mg oral cpDR twice a day 8. aspirin 325 mg Oral tab 1 tab once daily (Last dose: 04/02/2016 08:00) 9. isosorbide mononitrate 60 mg Oral Tb24 1 tab once daily (Last dose: 04/02/2016 08:00) 10. clopidogrel 75 mg oral tab 1 tab once daily (Last dose: 04/02/2016 08:00) 11. calcium acetate 667 mg oral cap 4 caps 3 times per day 12. minoxidil 2.5 mg Oral tab 2 tabs 2 times per day 13. Sensipar 30 mg oral tab 1 tab once daily 14. Flovent 110 mcg/actuation Inhl aero 2 puffs 2 times per day 15. furosemide 20 mg Oral tab 4 tab once daily (Last dose: 04/02/2016 08:00) 16. Levemir FlexTouch 100 unit/mL (3 mL) subcutaneous inpn 12 unit daily (Last dose: 04/02/2016 08:00) 17. Humalog Pen sliding scale Sub-Q three times a day 18. atorvastatin 40 mg oral tab 1 tab once daily 19. losartan 100 mg oral tab 1 tab once daily 20. Lopressor 50 mg Oral tab 2 times per day - PMHx: Asthma; CHF; COPD; Diabetes - IDDM: controlled; GERD; Heart Disease; Renal Failure with Dialysis; Stroke; - PSHx: Appendectomy; Tonsillectomy; Adenoidectomy; Open heart surgery; Cardiac stents; toe removed from right foot; shunt placements and revisions; fistula, left arm; - The history from nurses notes was reviewed: and I agree with what is documented. - Social history: Smoking status: Patient uses tobacco products, light tobacco smoker. No barriers to communication noted, The patient speaks fluent [place]. - Family history: No immediate family members are acutely ill. - : The pt / caregiver states he / she is on anticoagulants: Plavix. Home medication list is obtained from the patient, [employer] import data, pill bottles. - Hospitalizations: : The patient was recently seen at [facility]. - Exposure Risk Screening:: None identified. - Immunization history:: All immunizations up-to-date. - Social history:: the patient is a former smoker, the patient does not drink alcohol. Screenin:36 Screening information is obtained from the patient. Fall risk: No risks identified. mlc Assistance ADL's: Requires assistance with meal preparation, this assistance is provided by family members, Meals on Wheels, housework, assistance is provided by family members. Abuse/DV Screen: The patient / caregiver reports he/she is: not in a situation that causes fear, pain or injury. Nutritional screening: On renal diet. Advance Directives: Currently, there is a health care proxy, Yee Rivera, . There is an active DNR order but there is no copy available at this time. There is a living will, but a copy is not available at this time. There is an active Power of Food Tray Assembler, Yee Rivera, . home support is adequate. Assessment: 20:39 General: Appears in no apparent distress, comfortable, Behavior is appropriate for age, mlc cooperative, pt watching tv. Pain: Denies pain. Neurological: Level of Consciousness is awake, alert, Oriented to person, place, time. Cardiovascular: Heart tones S1 S2 present Rhythm is sinus rhythm. Cardiovascular: Chest pain is denied. Respiratory: Airway. Respiratory: Airway is patent Respiratory effort is even, unlabored, Respiratory pattern is regular, Breath sounds are diminished bilaterally. Reports cough that is non-productive, pain with cough. Derm: Skin is. 21:31 Reassessment: Patient appears in no apparent distress at this time. Patient states mlc symptoms have not improved. no changes since prior. pt resting comfortably in bed. . Cardiovascular: Edema is 3+ to left ankle, left foot, right ankle and right foot. 22:12 Reassessment: Patient appears in no apparent distress at this time. pt resting with mlc eyes closed. resp easy/unlabored. . 23:00 Reassessment: Patient appears in no apparent distress at this time. pt resting mlc comfortably in bed, watching tv. resp easy/unlabored. . 23:56 Reassessment: Patient appears in no apparent distress at this time. pt states he feels mlc SOB, pt repositioned and sitting at side of bed. SPO2 at 95%. Dr. Brewer made aware. Respiratory: Breath sounds are coarse expiratory bilaterally. Breath sounds are diminished. 04/03 00:15 Reassessment: Patient appears in no apparent distress at this time. Patient states mlc feeling better. pt medicated per order. urinal at bedside. NC in place. 02:10 General: Appears in no apparent distress, comfortable, pt resting with eyes closed, mlc resp easy/unlabored. . 03:01 General: Appears in no apparent distress, comfortable, Behavior is cooperative. mlc General: pt reports being unable to urinate at this time. Neurological: Level of Consciousness is awake, alert, Oriented to person, place, time. Respiratory: Airway is patent Respiratory effort is even, unlabored, Respiratory pattern is regular. 03:01 General: report given to Ani Tillman RN. [facility] [place] Reassessment: PATIENT IS AN ED DOMÍNGUEZ. ALL FURTHER DOCUMENTATION TO BE DONE IN [facility].nr1 Vital Signs: 04/02 20:33 BP 160 / 70; Pulse 85; Resp 20; Temp 97.3(O); Pulse Ox 98% on R/A; Weight 106.14 kg; mlc Height 6 ft. 3 in. (190.50 cm); Pain 0/10; 20:40 BP 155 / 72 (auto/); mlc 20:40 Pulse 86 MON; Pulse Ox 97% ; mlc 21:12 Weight 106.59 kg (M); mlc 21:19 BP 183 / 77 (auto/); mlc 21:19 Pulse 84 MON; Pulse Ox 93% ; mlc 21:25 BP 185 / 79 (auto/); mlc 21:54 Pulse 84 MON; Pulse Ox 95% ; mlc 21:54 BP 178 / 80 (auto/); mlc 22:10 BP 173 / 74 (auto/); mlc 22:10 Pulse 82 MON; Pulse Ox 94% ; mlc 22:19 Pulse 84 MON; Pulse Ox 97% ; mlc 22:25 BP 167 / 73 (auto/); mlc 22:25 Pulse 84 MON; Pulse Ox 97% ; mlc 22:40 Pulse 86 MON; Pulse Ox 86% ; mlc 22:40 BP 162 / 72 (auto/); mlc 22:55 Pulse 86 MON; Pulse Ox 90% ; mlc 22:55 BP 159 / 70 (auto/); mlc 23:10 BP 177 / 79 (auto/); mlc 23:11 Pulse 88 MON; Pulse Ox 90% ; mlc 23:25 BP 175 / 87 (auto/); mlc 23:26 Pulse 88 MON; Pulse Ox 91% ; mlc 23:40 BP 165 / 76 (auto/); mlc 23:41 Pulse 86 MON; Pulse Ox 90% ; mlc 23:55 BP 191 / 85 (auto/); mlc 23:56 Pulse 88 MON; Pulse Ox 95% ; mlc 04/03 00:14 Pulse 88 MON; Pulse Ox 98% ; mlc 00:25 BP 190 / 78 (auto/); mlc 00:26 Pulse 84 MON; Pulse Ox 96% ; mlc 00:40 BP 169 / 74 (auto/); mlc 00:41 Pulse 86 MON; Pulse Ox 97% ; mlc 00:55 BP 169 / 78 (auto/); mlc 00:56 Pulse 86 MON; Pulse Ox 95% ; mlc 01:10 BP 153 / 70 (auto/); mlc 01:11 Pulse 86 MON; Pulse Ox 94% ; mlc 01:25 Pulse 86 MON; Pulse Ox 93% ; mlc 01:25 BP 170 / 79 (auto/); mlc 01:40 BP 167 / 76 (auto/); mlc 01:41 Pulse 90 MON; Pulse Ox 90% ; mlc 03:00 Pulse 86 MON; Pulse Ox 98% ; mlc 04/02 21:12 Body Mass Index 29.37 (106.59 kg, 190.50 cm) mlc Vitals: 04/02 20:33 Log In Time N/A - ambulance [place] [facility] [place] Course: 20:18 Patient visited by Trae Duran, Wind Turbine Installer. ml3 20:18 Patient moved to Waiting ml3 20:19 URBANO WOODWARD is Private Physician. ml3 20:19 Tonny Cartwright is Private Physician. ml3 20:19 Emily Peña,RADHA is Primary Nurse. ml3 20:19 Patient moved to 5 ml3 20:22 Cristino Brewer MD is Attending Physician. pc 20:24 Triage Initiated mlc 20:37 Patient visited by Emily Peña RN. mlc 20:39 geophysicist on. Pulse ox on. NIBP on. mlc 20:41 Patient visited by Emily Peña,RADHA. mlc 20:44 Patient visited by Cristino Brewer MD. pc 21:08 [facility] Payment Agreement was scanned into How do you roll? and attached to record. gjb 21:20 EKG done. (by ED staff). Reviewed by Cristino Brewer MD. mlc 21:23 Patient visited by Pancho Ramirez PCA. kb5 21:31 The patient / caregiver is instructed regarding the plan of care and ED course. [facility] [place] Inserted saline lock: 20 gauge in right antecubital area and blood collected. [place] [facility] [place] tolerated the procedure well. by Danika Pizarro RN. 22:27 Patient visited by Cristino Brewer MD. pc 23:05 Patient visited by Pancho Ramirez PCA. kb5 23:41 -Arterial Blood Gas Sent. bb3 23:58 Patient visited by Emily Peña RN. [facility] [place] 04/03 00:14 O2 via nasal cannula \T\ 2L/min. mlc 00:16 Patient visited by Emily Peña RN. mlc 00:54 CT ABD & PELVIS: No Contrast Returned. EDMS 00:54 CT Chest Without Contrast Returned. EDMS 00:55 Patient visited by Pancho Ramirez PCA. kb5 01:27 Cheryle Mason is Hospitalizing Provider. pc 02:27 Patient moved to Admit Hold ml3 02:50 CT Head without contrast Returned. EDMS 03:03 Patient visited by Emily Peña RN. mlc 07:29 Primary Nurse role handed off by Emily Peña RN kr3 07:36 EKG-ADULT Returned. EDMS 09:49 Chest, 2 View (pa\E\lat) Returned. EDMS Administered Medications: 00:10 Drug: Furosemide 40 mg [furosemide 10 mg/mL injection solution (4 mL)] Route: IVP; [facility] [place]: right antecubital; RT: 04/02 23:41 ABG's drawn from right radial artery pressure held for 5 minutes no bleeding noted bb3 pressure bandage applied specimen sent pt. tolerated well. Oxygen is room air. Order Results: Lab Order: Basic Metabolic Profile; SPEC'M 04/02/16 20:58 Test: GLUCOSE, FASTING; Value: 127; Range: 70-105; Abnormal: Above high normal; Units: MG/DL; Status: F Test: BLOOD UREA NITROGEN; Value: 41; Range: 7-18; Abnormal: Above high normal; Units: MG/DL; Status: F Test: CREATININE FOR GFR; Value: 5.86; Range: 0.70-1.30; Abnormal: Above high normal; Units: MG/DL; Status: F Test: GLOMERULAR FILTRATION RATE; Value: 10.7; Range: >56; Abnormal: Below low normal; Status: F Test: SODIUM LEVEL; Value: 136; Range: 136-145; Units: MEQ/L; Status: F Test: POTASSIUM SERUM; Value: 5.3; Range: 3.5-5.1; Abnormal: Above high normal; Units: MEQ/L; Status: F Test: CHLORIDE LEVEL; Value: 97; Range: 98-107; Abnormal: Below low normal; Units: MEQ/L; Status: F Test: CARBON DIOXIDE LEVEL; Value: 29; Range: 21-32; Units: MEQ/L; Status: F Test: ANION GAP; Value: 10; Range: 8-16; Units: MEQ/L; Status: F Test: CALCIUM LEVEL; Value: 9.0; Range: 8.5-10.1; Units: MG/DL; Status: F Test Note: ; Units are mL/min/1.73 m2 Chronic Kidney Disease Staging per NKF: Stage I & II GFR >=60 Normal to Mildly Decreased Stage III GFR 30-59 Moderately Decreased Stage IV GFR 15-29 Severely Decreased Stage V GFR <15 Very Little GFR Left ESRD GFR <15 on STATISTICS TUTOR Lab Order: CBC with Diff; SPEC'M 04/02/16 20:58 Test: WHITE BLOOD COUNT; Value: 6.1; Range: 4.0-10.0; Units: K/mm3; Status: F Test: RED BLOOD COUNT; Value: 3.39; Range: 4.30-6.10; Abnormal: Below low normal; Units: M/mm3; Status: F Test: HEMOGLOBIN; Value: 11.3; Range: 14.0-18.0; Abnormal: Below low normal; Units: g/dl; Status: F Test: HEMATOCRIT; Value: 33.4; Range: 42.0-52.0; Abnormal: Below low normal; Units: %; Status: F Test: MEAN CORPUSCULAR VOLUME; Value: 98.4; Range: 80.0-96.0; Abnormal: Above high normal; Units: fl; Status: F Test: MEAN CORPUSCULAR HEMOGLOBIN; Value: 33.3; Range: 27.0-33.0; Abnormal: Above high normal; Units: pg; Status: F Test: MEAN CORPUSCULAR HGB CONC; Value: 33.8; Range: 32.0-36.5; Units: g/dl; Status: F Test: RED CELL DISTRIBUTION WIDTH; Value: 16.1; Range: 11.5-14.5; Abnormal: Above high normal; Units: %; Status: F Test: PLATELET COUNT, AUTOMATED; Value: 209; Range: 150-450; Units: k/mm3; Status: F Test: NEUTROPHILS %; Value: 74.8; Range: 36.0-66.0; Abnormal: Above high normal; Units: %; Status: F Test: LYMPH %; Value: 12.2; Range: 24.0-44.0; Abnormal: Below low normal; Units: %; Status: F Test: MONO %; Value: 7.8; Range: 0.0-5.0; Abnormal: Above high normal; Units: %; Status: F Test: EOS %; Value: 3.7; Range: 0.0-3.0; Abnormal: Above high normal; Units: %; Status: F Test: BASO %; Value: 0.3; Range: 0.0-1.0; Units: %; Status: F Test: LARGE UNSTAINED CELL %; Value: 1.2; Range: 0.0-4.0; Units: %; Status: F Test: NEUTROPHILS #; Value: 4.6; Range: 1.8-7.7; Units: K/mm3; Status: F Test: LYMPH #; Value: 0.8; Range: 1.5-4.5; Abnormal: Below low normal; Units: K/mm3; Status: F Test: MONO #; Value: 0.5; Range: 0.0-0.8; Units: K/mm3; Status: F Test: EOS #; Value: 0.2; Range: 0.0-0.50; Units: K/mm3; Status: F Test: BASO #; Value: 0.0; Range: 0.0-0.2; Units: K/mm3; Status: F Test: LARGE UNSTAINED CELL #; Value: 0.1; Range: 0.0-0.4; Units: K/mm3; Status: F Lab Order: Cardiac Injury Profile; SPEC'M 04/02/16 20:58 Test: CPK CREATINE PHOSPHOKINASE; Value: 173; Range: 39-308; Units: U/L; Status: F Test: CK-MB VALUE MASS; Value: 5.0; Range: 0.0-3.6; Abnormal: Above high normal; Units: NG/ML; Status: F Test: MB/CK RELATIVE INDEX; Value: 2.89; Range: < OR =4; Status: F Test Note: ; DIAGNOSIS CRITERIA MMB ng/ml Relative Index (RI) NON-AMI < or = 5 N/A [place] > 5 < or = 4 AMI > 5 > 4 Lab Order: Troponin; [facility] 04/02/16 20:58 Test: TROPONIN I; Value: 0.06; Range: < 0.10; Units: NG/ML; Status: F Test Note: ; Troponin I Reference Interval for Nonlinear Dynamics LOCI: 99th Percentile= 0.00-0.045 ng/ml Risk Stratification: <= 0.10 ng/ml Decreased Risk for Adverse Clinical Events. 0.10-1.50 ng/ml Increased Risk for Adverse Clinical Events. Evaluation of additional criterion and/or repeat testing in 2-6 hours is suggested to rule out myocardial damage. >= 1.50 ng/ml Indicative of Myocardial Injury. Lab Order: -Arterial Blood Gas; [facility] 04/02/16 23:28 Test: ABG pH (ARTERIAL); Value: 7.439; Range: 7.350-7.450; Units: UNITS; Status: F Test: ABG PARTIAL PRESSURE CO2; Value: 37.2; Range: 35.0-45.0; Units: mmHg; Status: F Test: ABG PARTIAL PRESSURE O2; Value: 56.0; Range: 75.0-100.0; Abnormal: Below low normal; Units: mmHg; Status: F Test: ABG TOTAL CO2; Value: 25.8; Range: 22.0-29.0; Units: MEQ/L; Status: F Test: ABG HCO3; Value: 24.6; Range: 22.0-26.0; Units: MEQ/L; Status: F Test: ABG BASE EXCESS; Value: 0.7; Range: -2.0-2.0; Status: F Test: ABG STANDARD HCO3; Value: 24.9; Range: 22.0-26.0; Units: MEQ/L; Status: F Test: ABG O2 SATURATION; Value: 90.3; Range: 95.0-99.0; Abnormal: Below low normal; Units: %; Status: F Test: ABG DEVICE; Value: NASAL IRON; Status: F Lab Order: CARDIAC MARKER PANEL; SPEC'04/03/16 05:20 Test: CPK CREATINE PHOSPHOKINASE; Value: 143; Range: 39-308; Units: U/L; Status: F Test: CK-MB VALUE MASS; Value: 3.9; Range: 0.0-3.6; Abnormal: Above high normal; Units: NG/ML; Status: F Test: MB/CK RELATIVE INDEX; Value: 2.72; Range: < OR =4; Status: F Test: TROPONIN I; Value: 0.07; Range: < 0.10; Units: NG/ML; Status: F Test Note: ; DIAGNOSIS CRITERIA MMB ng/ml Relative Index (RI) NON-AMI < or = 5 N/A [place]ONE > 5 < or = 4 AMI > 5 > 4 Lab Order: PROTHROMBIN TIME PROFILE\E\INR; SPEC'04/03/16 05:20 Test: PROTHROMBIN TIME; Value: 13.1; Range: 12.3-14.5; Units: SECONDS; Status: F Test: INR; Value: 0.98; Status: F Test Note: ; THERAPUTIC HUMAN INR VALUES INDICATIONS NORMAL RANGES PROPHYLAXIS/TREATMENT OF: VENOUS THROMBOSIS 2.0-3.0 PULMONARY EMBOLISM 2.0-3.0 PREVENTION OF SYSTEMIC EMBOLISM FROM: TISSUE HEART VALVES 2.0-3.0 ACUTE MYOCARDIAL INFARCTION 2.0-3.0 VALVULAR HEART DISEASE 2.0-3.0 ATRIAL FIBRILLATION 2.0-3.0 MECHANICAL VALVES(HIGH RISK) 2.5-3.5 RECURRENT MYOCARDIAL INFARCTION 2.5-3.5 Lab Order: Fingerstick Blood Sugar; SPEC'04/03/16 06:44 Test: BEDSIDE GLUCOSE; Value: 133; Range: 70-105; Abnormal: Above high normal; Units: MG/DL; Status: F Radiology Order: Chest, 2 View (pa\E\lat) Test: Chest, 2 View (pa\E\lat) REASON FOR EXAMINATION: Shortness of Breath; Chest x-ray: Two views.; ; History: Shortness of breath.; ; Comparison chest x-ray is from March 29, 2016.; ; Findings: Cardiomegaly, prior sternotomy wires and right paratracheal soft; tissue widening are again seen unchanged. Mediastinal fullness behind the heart; is again seen unchanged. Interstitial markings are slightly prominent question; early interstitial edema. 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 retrocrural/upper abd adenopathy; ; CLINICAL HISTORY: CHF, assess for retrocrural and upper abdominal adenopathy.; TECHNIQUE: CT of the chest, abdomen and pelvis was performed without intravenous contrast by obtainin; g contiguous CT axial slices from level of the vocal cords to the proximal femoral diaphyses. Multipl; kathi reformats were obtained in the coronal and sagittal projections.; COMPARISON: None; FINDINGS :; LOWER NECK: Thyroid gland is unremarkable. No mass, suspicious cystic lesion, or enlarged adenopathy; identified.; AXILLA AND MEDIASTINUM: There are multiple prominent to mildly enlarged mediastinal paratracheal, per; iaortic, and subcarinal nodes. Multiple retrocrural tortuous venous structures noted.; HEART AND GREAT VESSELS: Status post median sternotomy and CABG. Heart is normal in size with no liz; cardial effusion. Great vessels demonstrate no aneurysmal dilatation.; LUNGS/AIRWAYS/PLEURA: No acute infiltrate, effusion, mass, suspicious nodule, or pneumothorax.; LIVER: Normal in size with smooth contours.; BILIARY SYSTEM: No intrahepatic biliary ductal dilatation is seen. The common duct is normal in calib; er. The gallbladder demonstrates 102 mm stones without wall thickening or pericholecystic fluid.; PANCREAS: The pancreas is normal in size, contour and density. No suspicious cystic lesion or ductal; dilatation.; SPLEEN: Normal in size with no suspicious cystic lesion.; ADRENALS: The adrenal glands are unremarkable.; KIDNEYS/URETERS: Bilateral renal atrophy with cortical scarring with multiple simple as well as prote; inaceous versus hemorrhagic cysts-were a few are peripherally calcified in right upper pole. There ar; e also heterogeneous and more nodular measuring up to lesions for reference measuring up to 2.1 cm po; sterior left interpole axial series 205, images 51 and 2.3 cm anterior left interpole exophytic image; 58. No stones or hydronephrosis.; URINARY BLADDER: Circumferential wall thickening noted without stones or diverticula.; PROSTATE/SEMINAL VESICLES: Within normal size limits.; AORTA AND ILIAC ARTERIES AND VEINS:; -Diffuse atherosclerotic calcifications noted without aneurysmal dilatation; -The infrahepatic IVC is diminutive, superiorly there appears to be more as echoes continuation of th; e IVC.; LYMPH NODES: No enlarged adenopathy.; GASTROINTESTINAL: The bowel is normal in caliber. No foci of small or large bowel wall thickening are; seen.; PERITONEUM: No abdominal or pelvic ascites is seen. No peritoneal mass is seen.; ABDOMINAL/PELVIC WALL: No hernia is identified.; OSSEOUS STRUCTURES/SOFT TISSUES: No suspicious osseous lesion, acute fracture, or soft tissue abnorma; lity. Multilevel degenerative changes of the spine, moderate to severe at L2-L3 and L5-S1 with disc s; pace narrowing, subchondral sclerosis, vacuum phenomenon.; IMPRESSION :; 1. No evidence of CHF.; 2. There are multiple prominent to mildly enlarged mediastinal nodes which may be benign reactive alt; neha there is clinical history of malignancy metastatic disease should be considered and such cases; short interim follow-up CT in 2 month would be recommended to exclude growth.; -No definitive evidence of abdominal pelvic adenopathy. Periaortic structures in the upper abdomen ar; e likely tortuous venous channels and may represent azygos continuation of the IVC or other vascular; anomaly. If clinically necessitated this can be further confirmed by contrast CT abdomen/pelvis.; 3. Bilateral renal atrophy with scarring and multiple cysts as described although a few more nodular; appearing in the left kidney cannot be definitively characterized. There is no prior imaging to docum; ent stability of these findings, further evaluation with contrast MR abdomen (preferable if no contra; indications) versus contrast CT abdomen should be considered to exclude a cortical neoplasm.; ; Radiology Order: CT Chest Without Contrast Test: CT Chest Without Contrast REASON FOR EXAMINATION: COPD, ?RML infiltrate, ?CHF; ; CLINICAL HISTORY: CHF, assess for retrocrural and upper abdominal adenopathy.; TECHNIQUE: CT of the chest, abdomen and pelvis was performed without intravenous contrast by obtainin; g contiguous CT axial slices from level of the vocal cords to the proximal femoral diaphyses. Multipl; kathi reformats were obtained in the coronal and sagittal projections.; COMPARISON: None; FINDINGS :; LOWER NECK: Thyroid gland is unremarkable. No mass, suspicious cystic lesion, or enlarged adenopathy; identified.; AXILLA AND MEDIASTINUM: There are multiple prominent to mildly enlarged mediastinal paratracheal, per; iaortic, and subcarinal nodes. Multiple retrocrural tortuous venous structures noted.; HEART AND GREAT VESSELS: Status post median sternotomy and CABG. Heart is normal in size with no liz; cardial effusion. Great vessels demonstrate no aneurysmal dilatation.; LUNGS/AIRWAYS/PLEURA: No acute infiltrate, effusion, mass, suspicious nodule, or pneumothorax.; LIVER: Normal in size with smooth contours.; BILIARY SYSTEM: No intrahepatic biliary ductal dilatation is seen. The common duct is normal in calib; er. The gallbladder demonstrates 102 mm stones without wall thickening or pericholecystic fluid.; PANCREAS: The pancreas is normal in size, contour and density. No suspicious cystic lesion or ductal; dilatation.; SPLEEN: Normal in size with no suspicious cystic lesion.; ADRENALS: The adrenal glands are unremarkable.; KIDNEYS/URETERS: Bilateral renal atrophy with cortical scarring with multiple simple as well as prote; inaceous versus hemorrhagic cysts-were a few are peripherally calcified in right upper pole. There ar; e also heterogeneous and more nodular measuring up to lesions for reference measuring up to 2.1 cm po; sterior left interpole axial series 205, images 51 and 2.3 cm anterior left interpole exophytic image; 58. No stones or hydronephrosis.; URINARY BLADDER: Circumferential wall thickening noted without stones or diverticula.; PROSTATE/SEMINAL VESICLES: Within normal size limits.; AORTA AND ILIAC ARTERIES AND VEINS:; -Diffuse atherosclerotic calcifications noted without aneurysmal dilatation; -The infrahepatic IVC is diminutive, superiorly there appears to be more as echoes continuation of th; e IVC.; LYMPH NODES: No enlarged adenopathy.; GASTROINTESTINAL: The bowel is normal in caliber. No foci of small or large bowel wall thickening are; seen.; PERITONEUM: No abdominal or pelvic ascites is seen. No peritoneal mass is seen.; ABDOMINAL/PELVIC WALL: No hernia is identified.; OSSEOUS STRUCTURES/SOFT TISSUES: No suspicious osseous lesion, acute fracture, or soft tissue abnorma; lity. Multilevel degenerative changes of the spine, moderate to severe at L2-L3 and L5-S1 with disc s; pace narrowing, subchondral sclerosis, vacuum phenomenon.; IMPRESSION :; 1. No evidence of CHF.; 2. There are multiple prominent to mildly enlarged mediastinal nodes which may be benign reactive alt; neha there is clinical history of malignancy metastatic disease should be considered and such cases; short interim follow-up CT in 2 month would be recommended to exclude growth.; -No definitive evidence of abdominal pelvic adenopathy. Periaortic structures in the upper abdomen ar; e likely tortuous venous channels and may represent azygos continuation of the IVC or other vascular; anomaly. If clinically necessitated this can be further confirmed by contrast CT abdomen/pelvis.; 3. Bilateral renal atrophy with scarring and multiple cysts as described although a few more nodular; appearing in the left kidney cannot be definitively characterized. There is no prior imaging to docum; ent stability of these findings, further evaluation with contrast MR abdomen (preferable if no contra; indications) versus contrast CT abdomen should be considered to exclude a cortical neoplasm.; ; Radiology Order: CT Head without contrast Test: CT Head without contrast REASON FOR EXAMINATION: slipped on ice, fell, and hit head; on eliquis; ; CLINICAL HISTORY: Trauma.; TECHNIQUE: Multiple axial CT images were obtained through the brain without IV contrast material.; COMMENTS:; Right parietal chronic encephalomalacia.; There is normal configuration of sella turcica. There are no intra or extra-axial collections. There; is no mass effect or midline shift. There is no evidence of hematoma formation. No hydrocephalus is p; resent. The ventricles are symmetrical. No abnormal calcifications are present.; There is diffuse age-appropriate cerebellar and cerebral atrophy with proportionally dilated ventricl; es and cortical sulci.; There are bilateral periventricular and subcortical white matter hypolucencies compatible with mild c; hronic microvascular disease.; Otherwise, no significant focal abnormalities are seen either in the posterior fossa or supratentoria; l compartment.; IMPRESSION:; 1. Age-appropriate cerebellar and cerebral atrophy. Right parietal chronic encephalomalacia.; 2. Mild chronic microvascular disease.; 3. No evidence of acute intracranial pathology.; Thank you for your kind referral of this patient.; ; ; Outcome: 04/03 01:27 Decision to Hospitalize by Provider. pc 13:52 Patient left the ED. nr1 Signatures: Dispatcher [employer] EDMS Cristino Brewer MD MD Trae Duran, Wind [employer] Installer Unit ml3 Cindy CalleRN RN kr3 Pancho Ramirez, MERLE DIRECTOR INFORMATICS kb5 Ac Penny bb3 Emily Peña RN RN mlc Rillera, Nicole, RN RN nr1 Shelia Judd [facility]
[2016-04-03] MEDS: NICOTINE 21MG/24HR 1 EA TRANSDERMAL TD SCH (14:57)
[2016-04-03 16:00] VITALS: BP 155/70
[2016-04-03 19:24] VITALS: BP 176/73
[2016-04-03 23:51] VITALS: BP 153/70
[2016-04-04] MEDS: IPRATROPIUM 0.5MG/ALBUTEROL 2.5MG INH SOL UD 3ML (DUONEB)(J7620) NEB SCH ×4 (02:00→20:08)
[2016-04-04] MEDS: methylPREDNISolone INJ 125 MG/2 ML VIAL (J2930) IV SCH (03:23)
[2016-04-04 03:26] VITALS: BP 152/69
[2016-04-04 05:47] LABS: EOS % 0.1 % (0.0-3.0); LARGE UNSTAINED CELL % 0.3 % (0.0-4.0); LYMPH # 0.3 K/mm3 (1.5-4.5); LYMPH % 3.8 % (24.0-44.0); MEAN CORPUSCULAR HEMOGLOBIN 31.2 pg (27.0-33.0); MEAN CORPUSCULAR VOLUME 100.5 fl (80.0-96.0); MONO # 0.2 K/mm3 (0.0-0.8); MONO % 3.3 % (0.0-5.0); NEUTROPHILS # 6.8 K/mm3 (1.8-7.7); NEUTROPHILS % 92.5 % (36.0-66.0); PLATELET COUNT, AUTOMATED 193 k/mm3 (150-450); RED CELL DISTRIBUTION WIDTH 15.9 % (11.5-14.5); WHITE BLOOD COUNT 7.3 K/mm3 (4.0-10.0)
[2016-04-04 05:59] LABS: INR 1.07
[2016-04-04 06:06] LABS: CALCIUM LEVEL 9.3 MG/DL (8.5-10.1); CREATININE FOR GFR 4.66 MG/DL (0.70-1.30); GLOMERULAR FILTRATION RATE 13.9 (>56); MAGNESIUM LEVEL 1.9 MG/DL (1.8-2.4)
[2016-04-04 06:08] LABS: POTASSIUM SERUM 5.8 MEQ/L (3.5-5.1)
[2016-04-04] MEDS: HEPARIN SOD (PORCINE) 5000 UNITS/ML VIAL SC SCH ×3 (06:12→21:05)
[2016-04-04] MEDS ORDERED: GASTROGRAFIN SOLUTION 30ML PO ONE (06:30)
[2016-04-04] MEDS ORDERED: GASTROGRAFIN SOLUTION 30ML (Q9963) PO ONE (07:00)
[2016-04-04 07:20] VITALS: BP 164/78
[2016-04-04] MEDS: FLUTICASONE HFA 110 MCG 12 GM INHALER (FLOVENT) INH SCH ×2 (07:26→20:11)
[2016-04-04] MEDS ORDERED: ISOVUE-370 76% 100ML VIAL (Q9967) As Ordered ONE (08:08)
[2016-04-04] MEDS ORDERED: predniSONE 20 MG TAB PO SCH (09:00)
--- NOTE | 2016-04-04 09:10 | REP ---
Chest CT with IV contrast: Comparisons are 04/02/2016 without IV contrast and 03/24/2016. Pulmonary artery CT angiography: There is mediastinal, paratracheal, subcarinal and retrocrural adenopathy, not significantly changed. There is no hilar adenopathy. No axillary adenopathy. No lung masses or nodules are identified. There are no infiltrates or effusions. Thoracic aorta is unremarkable. Cardiac size is enlarged. Sternotomy wires are noted. There is no pericardial effusion. There is a small focal densities superiorly in the approximate T 11 vertebral body, bone island versus metastasis. No other lytic, blastic or destructive skeletal changes are identified. Impression: Mediastinal, paratracheal, subcarinal and retrocrural adenopathy. No hilar or axillary adenopathy. No lung masses or nodules. No infiltrates or effusions. The single small density in the T11 vertebral body, metastasis versus bone island. Signed by Car Glover MD 04/04/2016 09:02 A
[2016-04-04] MEDS: LANTHANUM CARBONATE 500 MG CHEW TABLET PO SCH ×3 (09:23→17:14)
[2016-04-04] MEDS: LEVEMIR (INSULIN DETEMIR) 1 UNITS/0.01ML SC SCH (09:24)
[2016-04-04] MEDS: MINOXIDIL 2.5 MG TAB PO SCH ×2 (09:24→21:06)
[2016-04-04] MEDS: METOPROLOL TART 50 MG TAB PO SCH ×2 (09:24→21:05)
[2016-04-04] MEDS: CALCIUM ACETATE 667 MG GELCAP PO SCH ×3 (09:25→17:14)
[2016-04-04] MEDS: LOSARTAN 50 MG TAB PO SCH (09:26)
[2016-04-04] MEDS: CINACALCET 30 MG TAB (SENSIPAR) PO SCH (09:26)
[2016-04-04] MEDS: CLOPIDOGREL 75 MG TAB PO SCH (09:27)
[2016-04-04] MEDS: OMEGA-3 1050MG CAPSULE PO SCH (09:27)
[2016-04-04] MEDS: HumaLOG INSULIN (NovoLOG) PER UNIT SC SCH ×4 (09:27→20:43)
[2016-04-04] MEDS: ATORVASTATIN 20 MG TAB PO SCH (09:28)
[2016-04-04] MEDS: ASPIRIN 325 MG TAB PO SCH (09:28)
[2016-04-04] MEDS: ISOSORBIDE MON. (IMDUR) 60 MG XR TAB PO SCH (09:28)
[2016-04-04] MEDS: amLODIPine 10 MG TAB PO SCH (09:28)
[2016-04-04] MEDS: OMEPRAZOLE 20 MG CAP PO SCH (09:29)
[2016-04-04] MEDS: FUROSEMIDE 20 MG TAB PO SCH (09:29)
[2016-04-04] MEDS: NICOTINE 21MG/24HR 1 EA TRANSDERMAL TD SCH (09:30)
--- NOTE | 2016-04-04 09:42 | REP ---
CT study of the abdomen pelvis with IV and oral contrast: History: Renal masses. Patient on dialysis. Comparison CT abdomen study without contrast is from April 02, 2016. CT contrast dose: 100 mL of Isovue 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 There is some diffuse subcutaneous edema. The lung bases are essentially clear. The liver is enlarged measuring 19 cm in craniocaudal span in the midclavicular line. No focal hepatic mass lesion is seen. There is opaque material in the dependent portion of the gallbladder consistent with cholelithiasis. Mild gallbladder wall thickening is seen. There is a trace of ascites visible in the perihepatic region. No adrenal mass is seen. The kidneys show bilateral atrophy. Decreased contrast enhancement is seen in each kidney. There are multiple cysts some of which are somewhat hyperdense. No renal mass lesion or hydronephrosis is seen on either side. The pancreas shows no evidence of mass. Small and large intestinal bowel loops are unremarkable. Seminal vesicles, prostate and urinary bladder appear intact. No abdominal wall defect is seen. The appendix is surgically absent by history and it is not apparent on images. No bony destructive lesion is seen. There is extensive diffuse vascular calcification affecting the arterial tree throughout. In addition, vascular calcification is seen to a somewhat lesser degree affecting the inferior vena cava, common iliac and external iliac veins, and the common femoral veins bilaterally. There is contrast enhancement in the portal vein and superior mesenteric vein indicating patency of these structures. I do not see definite enhancement of the iliac veins or vena cava although this may be related to circulation time and acquisition time relative to the contrast injection. The intrahepatic segment of the inferior vena cava is small and there are perivertebral venous collateral vessels above the diaphragm which appear to feed a dilated azygos vein an azygos venous arch in the chest. This raises a question of inferior vena cava obstruction. Collateral veins are seen in the periaortic region below the liver as well. No definite adenopathy is seen. There are some mildly hypertrophied lymph nodes in the inguinal lymph node chain bilaterally. The largest of these is on the left where there is an elongate lymph node measuring 5.5 cm in length by 2.3 x 1.3 cm in transverse dimension. Impression: 1. Cholelithiasis. 2. Hepatomegaly. 3. Renal cortical atrophy with numerous cysts but no evidence of mass or hydronephrosis. 4. Venous collaterals in the retroperitoneum and paravertebral region with multifocal venous calcification. Pattern raises a question of infrahepatic occlusion of the IVC with collateral drainage via the azygos vein. This is a chronic finding. 5. Hypertrophied lymph nodes in the inguinal regions bilaterally. No other mass or adenopathy seen. Signed by Yeison Krishnan MD 04/04/2016 09:51 A
--- NOTE | 2016-04-04 11:37 | IPNPDOC ---
Date/Time Seen The patient was seen on 04/04/16 at 11:18. Progress Note DATE OF ENCOUNTER: 04/04/2016 SUBJECTIVE: Mr. Rivera was seen this morning during hemodialysis. He reports that his breathing is much better and that he feels good. He reports that he is not drinking excessive fluids at home however he has several admissions in the past due to fluid overload and shortness of breath. This morning, he denies any chest pain or pressure. No shortness of breath. He remains on supplemental oxygen. No nausea, vomiting, diarrhea, abdominal pain, fever, chills, headache, dizziness. OBJECTIVE: Vital Signs Date Time Temp Pulse Resp B/P Pulse Ox O2 Delivery O2 Flow Rate FiO2 04/04/16 09:28 152/69 04/04/16 09:28 73 04/04/16 07:20 96.0 18 97 Room Air 04/03/16 08:00 2.0 I&O- Last 24 Hours up to 6 AM 04/04/16 05:59 Intake Total 1140 ml Output Total 6175 ml Balance -5035 ml GENERAL: Patient is lying in bed comfortably. In no acute distress. HEENT: Normocephalic, atraumatic. Extraocular movement intact. Moist mucosa. NECK: Supple. No thyromegaly. Jugular venous pulsations are elevated. HEART: Normal S1, S2. Regular rate and rhythm. Positive for systolic ejection murmur. LUNGS: Positive for faint rales in the lower bases. Also diminished in the lower bases. ABDOMEN: Soft. Nontender, nondistended. Bowel sounds are present. No rebound, guarding or rigidity. EXTREMITIES: +2 lower extremity edema. No cyanosis. Positive pedal pulses bilaterally. SKIN: Warm and dry. Good skin turgor. No rashes noted. NEUROLOGIC: No focal deficits. Moving all extremities. LABORATORY DATA: 04/04/16 04:59 Red Blood Count 3.63 L, Mean Corpuscular Volume 100.5 H, Mean Corpuscular Hemoglobin 31.2, Mean Corpuscular Hemoglobin Concentration 31.0 L, Red Cell Distribution Width 15.9 H, Calcium Level 9.3, Glomerular Filtration Rate 13.9L, Magnesium Level 1.9, Prothrombin Time International Ratio 1.07, Prothrombin Time 14.0 MICROBIOLOGY: Blood Cultures show no growth thus far. IMAGING: Chest x-ray done on 04/03 revealed cardiomegaly, mediastinal fullness behind the heart that is unchanged, interstitial markings are slightly more prominent questioning interstitial edema, cephalization of the pulmonary vasculature, no kristina pleural effusion. Chest CT on 04/03 revealed multiple prominent some mildly enlarged mediastinal nodes, bilateral renal atrophy with scarring and multiple cysts Abdomen/pelvis CT on 04/03 revealed no definite evidence of abdominal pelvic adenopathy, periaortic structures in the upper abdomen are likely tortuous venous channels. Head CT on 04/03 revealed age appropriate cerebellar and cerebral atrophy, right parietal chronic encephalomalacia, mild chronic microvascular disease Repeat chest CT done with IV contrast on 04/04 revealed mediastinal, paratracheal , subcarinal and retrocrural adenopathy. No lung masses or nodules. No infiltrates or effusions. There is a small density in the T11 vertebral body and metastasis could not be ruled out. Repeat abdomen/pelvis CT done with contrast on 04/04 revealed renal cortical atrophy with numerous cysts but no evidence of mass or hydronephrosis, venous collaterals in the retroperitoneum and paravertebral region with multifocal venous calcification, this pattern raises question of infrahepatic occlusion of the IVC, hepatomegaly, cholelithiasis, bilateral hypertrophied lymph nodes in the inguinal region, no other masses noted. IMPRESSION/PLAN: 1. Shortness of breath, secondary to fluid overload. Clinically, he remains volume overloaded with jugular venous distention and lower extremity edema. He was dialyzed yesterday where 6 L of fluid was removed. He is also receiving dialysis today with a goal of removing 5 L. Potassium was also elevated, which should improve after receiving dialysis. He should be on a strict fluid restriction. This was emphasized to the patient today. 2. End-stage renal disease. Patient receives hemodialysis on Thursday, , and Saturdays. He is being dialyzed today secondary to continued fluid overload and hyperkalemia. Next regular session will be tomorrow 04/05. 3. Hyperkalemia. Potassium has increased to 5.8. This should be corrected with hemodialysis. 4. Mild hyponatremia, likely secondary to hypervolemia. We will attempt to improve volume status with hemodialysis. 5. Chronic systolic heart failure. Ejection fraction in July 2015 was 30-35%. He has apparently declined AICD placement. We will attempt to correct his fluid status with hemodialysis. He remains on his home dose of Lasix and should be on a 1500ml fluid restriction. 6. Abnormal CT. Repeat chest and abdominal CT with contrast reveals multiple areas of adenopathy, but no evidence of lung mass or renal mass. There is a question of infrahepatic occlusion of the IVC, which could be chronic. There is also small density in the T11 vertebral body. Defer to primary team for any further workup or management needed. 7. Anemia in end-stage renal disease. Hemoglobin is currently stable. No intervention needed at this time 8. Hypertension. Continue Norvasc, Imdur, Lopressor, Minoxidil, Cozaar and Lasix. 9. History of hyperphosphatemia and secondary hyperparathyroidism. Continue with Phoslo, Sensipar and Fosrenol. GME ATTESTATION GME ATTESTATION My preceptor for this patient encounter was physically present in the building during the encounter and was fully available. As needed, all aspects of the patient interview, examination, medical decision making process, and medical care plan development were reviewed and approved by the preceptor. Preceptor is aware and concurs with the plan as stated in the body of this note and will attest to such by his/her cosignature. MADELAINE WEBBER DO Apr 04, 2016 11:37
--- NOTE | 2016-04-04 12:06 | IPNPDOC ---
Assessment/Plan Date Seen The patient was seen on 04/04/16. Problems Problems: (1) CHF exacerbation Status: Acute Problem Text: systolic chf exacerbation due to dietary and HD noncompliance. getting back to back HD, says gained 30 lbs this month. (2) ESRD (end stage renal disease) Status: Chronic Problem Text: with fluid overload getting daily HD. (3) Hypertension Status: Chronic Problem Text: continue home medications (4) Diabetes Status: Chronic (5) Paroxysmal a-fib Status: Chronic Problem Text: now in sinus (6) Peripheral neuropathy Status: Chronic (7) PAD (peripheral artery disease) Status: Chronic (8) Hx of CABG Status: Chronic (9) CAD (coronary artery disease) Status: Chronic (10) Lymphadenopathy of other site Status: Acute Problem Text: has lymphadenopathy in severeal regions of the lung but not in the hilar or axillary region , (11) History of cerebrovascular accident Status: Chronic (12) Pulmonary hypertension Status: Chronic (13) GERD (gastroesophageal reflux disease) Status: Chronic (14) COPD (chronic obstructive pulmonary disease) Status: Chronic Problem Text: also possibly has sleep disordered breathing as from nocturnal oximetry , never has sleep studies Plan / VTE VTE Prophylaxis Ordered?: Yes Subjective Review of Systems CC/HPI The patient is a 55-year-old male admitted with a reason for visit of Acute On Chronic Respiratory Failure. Events since last encounter feeling better today , reduced sob after dialysis yesterday , no fever or chills , no chest pain or sob Objective Physical Examination General Exam: Positive: Alert, Cooperative, No Acute Distress Eye Exam: Positive: Conjunctiva & lids normal, EOMI, PERRLA, Negative: Sclera icteric ENT Exam: Positive: Atraumatic, Mucous membr. moist/pink, Pharynx Normal Neck Exam: Positive: Supple, Negative: JVD, thyromegaly Chest Exam: Positive: Clear to auscultation, Normal air movement Heart Exam: Positive: Normal S1, Normal S2, Rate Normal, Regular Rhythm, Negative: Murmurs, Rubs Telemetry: Positive: No significant arrhythmia Abdomen Exam: Positive: Normal bowel sounds, Soft, Negative: Hepatospenomegaly, Tenderness Extremity Exam: Positive: Edema, Normal pulses, Negative: Clubbing, Cyanosis Vital Signs/I&O Vital Signs Date Time Temp Pulse Resp B/P Pulse Ox O2 Delivery O2 Flow Rate FiO2 04/04/16 09:28 152/69 04/04/16 09:28 73 04/04/16 07:20 96.0 18 97 Room Air 04/03/16 08:00 2.0 I&O- Last 24 Hours up to 6 AM 04/04/16 06:00 Intake Total 1140 ml Output Total 6175 ml Balance -5035 ml Laboratory Data Labs 24H Laboratory Tests 2 04/03/16 14:02: Creatine Kinase MB 3.8H, Creatine Kinase MB Relative Index 3.14, Total Creatine Kinase 121, Troponin I 0.05# 04/03/16 17:03: Bedside Glucose (Misc Panel) 258H 04/03/16 20:06: Bedside Glucose (Misc Panel) 272H 04/03/16 21:18: Creatine Kinase MB 3.8H, Creatine Kinase MB Relative Index 3.58, Total Creatine Kinase 106, Troponin I 0.04 04/04/16 04:59: Anion Gap 13, White Blood Count 7.3, Red Blood Count 3.63L, Hemoglobin 11.3L, Hematocrit 36.5L, Mean Corpuscular Volume 100.5H, Mean Corpuscular Hemoglobin 31.2, Mean Corpuscular Hemoglobin Concent 31.0L, Red Cell Distribution Width 15.9H, Platelet Count 193, Neutrophils (%) (Auto) 92.5H, Lymphocytes (%) (Auto) 3.8L, Monocytes (%) (Auto) 3.3, Eosinophils (%) (Auto) 0.1, Basophils (%) (Auto ) 0.0, Neutrophils # (Auto) 6.8, Lymphocytes # (Auto) 0.3L, Monocytes # (Auto) 0.2, Eosinophils # (Auto) 0.0, Basophils # (Auto) 0.0, Blood Urea Nitrogen 35H, Creatinine 4.66H, Sodium Level 135L, Potassium Level 5.8H, Chloride Level 95L, Carbon Dioxide Level 27, Calcium Level 9.3, Glomerular Filtration Rate 13.9L, Large Unclassified Cells # 0.0, Large Unclassified Cells % 0.3, Magnesium Level 1.9, Prothromb Time International Ratio 1.07, Prothrombin Time 14.0 CBC/BMP Laboratory Tests 04/04/16 04:59 Calcium Level 9.3, Red Blood Count 3.63 L, Mean Corpuscular Volume 100.5 H, Mean Corpuscular Hemoglobin 31.2, Mean Corpuscular Hemoglobin Concent 31.0 L, Red Cell Distribution Width 15.9 H, Neutrophils (%) (Auto) 92.5 H, Lymphocytes ( %) (Auto) 3.8 L, Monocytes (%) (Auto) 3.3, Eosinophils (%) (Auto) 0.1, Basophils (%) (Auto) 0.0, Neutrophils # (Auto) 6.8, Lymphocytes # (Auto) 0.3 L, Monocytes # (Auto) 0.2, Eosinophils # (Auto) 0.0, Basophils # (Auto) 0.0 FSBS Laboratory Tests Test 04/03/16 17:03 04/03/16 20:06 Range/Units Bedside Glucose (Misc Panel) 258 272 70-105 MG/DL Microbiology Microbiology 04/02/16 Blood Culture - Preliminary, Resulted No growth after 24 hours . All specim... 04/02/16 Blood Culture - Preliminary, Resulted No growth after 24 hours . All specim... ISRAEL CAMPUZANO MD Apr 04, 2016 12:06
[2016-04-04 14:30] VITALS: BP 136/64
[2016-04-04 16:00] VITALS: BP 104/52
[2016-04-04 18:00] VITALS: BP 144/64
[2016-04-04] MEDS ORDERED: EMLA CREAM 5GM (LIDOCAINE/PRILOCAINE) EXT PRN (20:45)
[2016-04-04] MEDS: PERCOCET 5MG/325MG TAB PO PRN (21:12)
[2016-04-04 22:00] VITALS: BP 139/63
[2016-04-05] MEDS ORDERED: LevoFLOXacin IV 250 MG in APPROPRIATE DILUENT 1 EA IV SCH ×2
[2016-04-05 05:52] LABS: BASO % 0.4 % (0.0-1.0); EOS % 0.1 % (0.0-3.0); LARGE UNSTAINED CELL # 0.1 K/mm3 (0.0-0.4); LARGE UNSTAINED CELL % 0.6 % (0.0-4.0); LYMPH # 0.5 K/mm3 (1.5-4.5); LYMPH % 3.2 % (24.0-44.0); MEAN CORPUSCULAR HEMOGLOBIN 31.8 pg (27.0-33.0); MEAN CORPUSCULAR HGB CONC 31.7 g/dl (32.0-36.5); MEAN CORPUSCULAR VOLUME 100.2 fl (80.0-96.0); MONO # 0.7 K/mm3 (0.0-0.8); NEUTROPHILS # 12.2 K/mm3 (1.8-7.7); NEUTROPHILS % 90.7 % (36.0-66.0); PLATELET COUNT, AUTOMATED 185 k/mm3 (150-450); RED CELL DISTRIBUTION WIDTH 16.9 % (11.5-14.5); WHITE BLOOD COUNT 13.5 K/mm3 (4.0-10.0)
[2016-04-05 05:58] LABS: INR 1.04
[2016-04-05 06:00] VITALS: BP 134/61
[2016-04-05] MEDS: NICOTINE 21MG/24HR 1 EA TRANSDERMAL TD SCH (06:09)
[2016-04-05] MEDS: VITAMIN D 1,000 INTERNATIONAL UNITS TABLET PO SCH (06:09)
[2016-04-05] MEDS: LOSARTAN 50 MG TAB PO SCH (06:09)
[2016-04-05 06:10] LABS: CALCIUM LEVEL 8.9 MG/DL (8.5-10.1); CREATININE FOR GFR 3.75 MG/DL (0.70-1.30); GLOMERULAR FILTRATION RATE 17.8 (>56); POTASSIUM SERUM 4.8 MEQ/L (3.5-5.1)
[2016-04-05] MEDS: OMEPRAZOLE 20 MG CAP PO SCH (06:10)
[2016-04-05] MEDS: CLOPIDOGREL 75 MG TAB PO SCH (06:10)
[2016-04-05] MEDS: ASPIRIN 325 MG TAB PO SCH (06:10)
[2016-04-05] MEDS: FUROSEMIDE 20 MG TAB PO SCH (06:10)
[2016-04-05] MEDS: CINACALCET 30 MG TAB (SENSIPAR) PO SCH (06:10)
[2016-04-05] MEDS: MINOXIDIL 2.5 MG TAB PO SCH ×2 (06:11→21:05)
[2016-04-05] MEDS: CALCIUM ACETATE 667 MG GELCAP PO SCH ×3 (06:11→18:58)
[2016-04-05] MEDS: ATORVASTATIN 20 MG TAB PO SCH (06:11)
[2016-04-05] MEDS: ISOSORBIDE MON. (IMDUR) 60 MG XR TAB PO SCH (06:12)
[2016-04-05] MEDS: amLODIPine 10 MG TAB PO SCH (06:12)
[2016-04-05] MEDS: METOPROLOL TART 50 MG TAB PO SCH ×2 (06:12→21:06)
[2016-04-05] MEDS: LANTHANUM CARBONATE 500 MG CHEW TABLET PO SCH ×3 (06:13→18:58)
[2016-04-05] MEDS: HEPARIN SOD (PORCINE) 5000 UNITS/ML VIAL SC SCH ×3 (06:13→21:06)
[2016-04-05] MEDS: OMEGA-3 1050MG CAPSULE PO SCH (06:14)
[2016-04-05] MEDS: IPRATROPIUM 0.5MG/ALBUTEROL 2.5MG INH SOL UD 3ML (DUONEB)(J7620) NEB SCH ×3 (08:24→20:56)
[2016-04-05] MEDS: FLUTICASONE HFA 110 MCG 12 GM INHALER (FLOVENT) INH SCH ×2 (08:25→20:56)
[2016-04-05] MEDS: HumaLOG INSULIN (NovoLOG) PER UNIT SC SCH ×4 (08:52→20:14)
[2016-04-05] MEDS: LEVEMIR (INSULIN DETEMIR) 1 UNITS/0.01ML SC SCH (08:53)
[2016-04-05 09:45] VITALS: BP 135/64
--- NOTE | 2016-04-05 10:43 | IPNPDOC ---
Assessment/Plan Date Seen The patient was seen on 04/05/16. Problems Problems: (1) CHF exacerbation Status: Acute Problem Text: systolic chf exacerbation due to dietary and HD noncompliance. getting back to back HD, says gained 30 lbs this month. (2) ESRD (end stage renal disease) Status: Chronic Problem Text: with fluid overload getting daily HD. (3) Hypertension Status: Chronic Problem Text: continue home medications (4) Diabetes Status: Chronic (5) Paroxysmal a-fib Status: Chronic Problem Text: now in sinus (6) Peripheral neuropathy Status: Chronic (7) PAD (peripheral artery disease) Status: Chronic (8) Hx of CABG Status: Chronic (9) CAD (coronary artery disease) Status: Chronic (10) Lymphadenopathy of other site Status: Acute Problem Text: has lymphadenopathy in severeal regions of the lung but not in the hilar or axillary region , (11) History of cerebrovascular accident Status: Chronic (12) Pulmonary hypertension Status: Chronic (13) GERD (gastroesophageal reflux disease) Status: Chronic (14) COPD (chronic obstructive pulmonary disease) Status: Chronic Problem Text: also possibly has sleep disordered breathing as from nocturnal oximetry , never has sleep studies Plan / VTE VTE Prophylaxis Ordered?: Yes Subjective Review of Systems CC/HPI The patient is a 55-year-old male admitted with a reason for visit of Acute On Chronic Respiratory Failure. Events since last encounter no new complaints going for HD again today. Objective Physical Examination General Exam: Positive: Alert, Cooperative, No Acute Distress Eye Exam: Positive: Conjunctiva & lids normal, EOMI, PERRLA, Negative: Sclera icteric ENT Exam: Positive: Atraumatic, Mucous membr. moist/pink, Pharynx Normal Neck Exam: Positive: Supple, Negative: JVD, thyromegaly Chest Exam: Positive: Clear to auscultation, Normal air movement Heart Exam: Positive: Normal S1, Normal S2, Rate Normal, Regular Rhythm, Negative: Murmurs, Rubs Telemetry: Positive: No significant arrhythmia Abdomen Exam: Positive: Normal bowel sounds, Soft, Negative: Hepatospenomegaly, Tenderness Extremity Exam: Positive: Edema, Normal pulses, Negative: Clubbing, Cyanosis Vital Signs/I&O Vital Signs Date Time Temp Pulse Resp B/P Pulse Ox O2 Delivery O2 Flow Rate FiO2 04/05/16 09:45 96.0 66 12 135/64 95 Room Air 1/26/17 08:00 2.0 I&O- Last 24 Hours up to 6 AM 04/05/16 06:00 Intake Total 1830 ml Output Total 5000 ml Balance -3170 ml Laboratory Data Labs 24H Laboratory Tests 2 04/04/16 14:37: Bedside Glucose (Misc Panel) 132H 04/04/16 16:37: Bedside Glucose (Misc Panel) 166H 04/04/16 20:41: Bedside Glucose (Misc Panel) 196H 04/05/16 05:37: Anion Gap 13, White Blood Count 13.5H, Red Blood Count 3.51L, Hemoglobin 11.1L, Hematocrit 35.1L, Mean Corpuscular Volume 100.2H, Mean Corpuscular Hemoglobin 31.8, Mean Corpuscular Hemoglobin Concent 31.7L, Red Cell Distribution Width 16.9H, Platelet Count 185, Neutrophils (%) (Auto) 90.7H, Lymphocytes (%) (Auto) 3.2L, Monocytes (%) (Auto) 5.0, Eosinophils (%) (Auto) 0.1, Basophils (%) (Auto ) 0.4, Neutrophils # (Auto) 12.2H, Lymphocytes # (Auto) 0.5L, Monocytes # (Auto ) 0.7, Eosinophils # (Auto) 0.0, Basophils # (Auto) 0.0, Blood Urea Nitrogen 35H , Creatinine 3.75H, Sodium Level 134L, Potassium Level 4.8, Chloride Level 94L, Carbon Dioxide Level 27, Calcium Level 8.9, Glomerular Filtration Rate 17.8L, Large Unclassified Cells # 0.1, Large Unclassified Cells % 0.6, Magnesium Level 2.0, Prothromb Time International Ratio 1.04, Prothrombin Time 13.7 CBC/BMP Laboratory Tests 04/05/16 05:37 Calcium Level 8.9, Red Blood Count 3.51 L, Mean Corpuscular Volume 100.2 H, Mean Corpuscular Hemoglobin 31.8, Mean Corpuscular Hemoglobin Concent 31.7 L, Red Cell Distribution Width 16.9 H, Neutrophils (%) (Auto) 90.7 H, Lymphocytes ( %) (Auto) 3.2 L, Monocytes (%) (Auto) 5.0, Eosinophils (%) (Auto) 0.1, Basophils (%) (Auto) 0.4, Neutrophils # (Auto) 12.2 H, Lymphocytes # (Auto) 0.5 L, Monocytes # (Auto) 0.7, Eosinophils # (Auto) 0.0, Basophils # (Auto) 0.0 FSBS Laboratory Tests Test 04/04/16 14:37 04/04/16 16:37 04/04/16 20:41 Range/Units Bedside Glucose (Misc Panel) 132 166 196 70-105 MG/DL Microbiology Microbiology 04/02/16 Blood Culture - Preliminary, Resulted No Growth after 48 hours. All Specime... 04/02/16 Blood Culture - Preliminary, Resulted No Growth after 48 hours. All Specime... ISRAEL CAMPUZANO MD Apr 05, 2016 10:43
--- NOTE | 2016-04-05 12:44 | IPNPDOC ---
Date/Time Seen The patient was seen on 04/05/16 at 12:30. Progress Note DATE OF ENCOUNTER: 04/05/2016 SUBJECTIVE: Mr. Rivera was seen this morning at bedside. He is due for dialysis today. He reports that his breathing is better. He was not on any supplemental oxygen this morning. He had dialysis yesterday where 5000mL of fluid was removed , which was well tolerated. He denies any chest pain or pressure, shortness of breath, nausea, vomiting, diarrhea, abdominal pain, fever, chills, headache, dizziness. He is afebrile however white count is elevated. OBJECTIVE: Vital Signs Date Time Temp Pulse Resp B/P Pulse Ox O2 Delivery O2 Flow Rate FiO2 04/05/16 09:45 96.0 66 12 135/64 95 Room Air I&O- Last 24 Hours up to 6 AM 04/05/16 05:59 Intake Total 1680 ml Output Total 5000 ml Balance -3320 ml GENERAL: Patient is lying in bed comfortably. In no acute distress. HEENT: Normocephalic, atraumatic. Extraocular movement intact. Moist mucosa. NECK: Supple. No thyromegaly. Jugular venous pulsations are elevated up to the earlobe. HEART: Normal S1, S2. Regular rate and rhythm. Positive for systolic ejection murmur. LUNGS: Good air movement bilaterally. No rhonchi or wheezing appreciated. ABDOMEN: Soft. Nontender, nondistended. Bowel sounds are present. No rebound, guarding or rigidity. EXTREMITIES: 2+ lower extremity edema. No cyanosis. Positive pedal pulses bilaterally. SKIN: Warm and dry. Good skin turgor. No rashes noted. NEUROLOGIC: No focal deficits. Moving all extremities. LABORATORY DATA: 04/05/16 05:37 MICROBIOLOGY: Blood Cultures show no growth thus far. IMAGING: Chest x-ray done on 04/03 revealed cardiomegaly, mediastinal fullness behind the heart that is unchanged, interstitial markings are slightly more prominent questioning interstitial edema, cephalization of the pulmonary vasculature, no kristina pleural effusion. Chest CT on 04/03 revealed multiple prominent some mildly enlarged mediastinal nodes, bilateral renal atrophy with scarring and multiple cysts Abdomen/pelvis CT on 04/03 revealed no definite evidence of abdominal pelvic adenopathy, periaortic structures in the upper abdomen are likely tortuous venous channels. Head CT on 04/03 revealed age appropriate cerebellar and cerebral atrophy, right parietal chronic encephalomalacia, mild chronic microvascular disease Repeat chest CT done with IV contrast on 04/04 revealed mediastinal, paratracheal , subcarinal and retrocrural adenopathy. No lung masses or nodules. No infiltrates or effusions. There is a small density in the T11 vertebral body and metastasis could not be ruled out. Repeat abdomen/pelvis CT done with contrast on 04/04 revealed renal cortical atrophy with numerous cysts but no evidence of mass or hydronephrosis, venous collaterals in the retroperitoneum and paravertebral region with multifocal venous calcification, this pattern raises question of infrahepatic occlusion of the IVC, hepatomegaly, cholelithiasis, bilateral hypertrophied lymph nodes in the inguinal region, no other masses noted. IMPRESSION/PLAN: 1. Shortness of breath, secondary to fluid overload. Clinically, he remains volume overloaded with jugular venous distention and lower extremity edema. He was dialyzed where 6 liters of fluid was removed. He was dialyzed yesterday where 5 liters of fluid was removed. He will be dialyzed again today with a goal of 5 liters. He should be on a strict fluid restriction and this has been emphasized. 2. End-stage renal disease. Patient receives hemodialysis on Thursday, , and Saturdays. He is being dialyzed today, as this is his regular day. 3. Hyperkalemia, resolved after receiving dialysis. 4. Mild hyponatremia, likely secondary to hypervolemia. We will attempt to improve volume status with hemodialysis. 5. Chronic systolic heart failure. Ejection fraction in July 2015 was 30-35%. He has apparently declined AICD placement. We will continue to correct his fluid status with hemodialysis. He remains on his home dose of Lasix and should be on a 1500ml fluid restriction. 6. Abnormal CT. Repeat chest and abdominal CT with contrast reveals multiple areas of adenopathy, but no evidence of lung mass or renal mass. There is a question of infrahepatic occlusion of the IVC, which could be chronic. There is also small density in the T11 vertebral body. Defer to primary team for any further workup or management needed. 7. Anemia in end-stage renal disease. Hemoglobin is currently stable. No intervention needed at this time 8. Hypertension. Continue Norvasc, Imdur, Lopressor, Minoxidil, Cozaar and Lasix. 9. History of hyperphosphatemia and secondary hyperparathyroidism. Continue with Phoslo, Sensipar and Fosrenol. GME ATTESTATION GME ATTESTATION My preceptor for this patient encounter was physically present in the building during the encounter and was fully available. As needed, all aspects of the patient interview, examination, medical decision making process, and medical care plan development were reviewed and approved by the preceptor. Preceptor is aware and concurs with the plan as stated in the body of this note and will attest to such by his/her cosignature. MADELAINE WEBBER DO Apr 05, 2016 12:44
--- NOTE | 2016-04-05 14:54 | EDDOCDS ---
Physician Documentation [facility] Name: Antonio Rivera Age: 55 yrs Sex: Male : 1960 Arrival Date: 04/02/2016 Time: 20:17 Bed Admit Hold Private MD: Tonny Cartwright Disposition: 04/03 01:24 Critical Care:. pc Disposition: 04/03/16 01:27 Hospitalization ordered by Cheryle Mason for Inpatient Admission. Preliminary diagnosis are Chronic obstructive pulmonary disease with (acute) exacerbation, End stage renal disease. - Bed requested for PCU. - Status is Inpatient Admission. nr1 - Condition is Stable. - Problem is new. - Symptoms have improved. HPI: 04/02 20:45 This 55 yrs old Male presents to ER via Ambulance with complaints of pc Breathing Difficulty. 20:45 The history is obtained from the patient, the patient's spouse. The patient presents pc with shortness of breath, with a prior history of COPD, congestive heart failure. The symptoms began suddenly just prior to arrival. The symptoms He was lying down and suddenly had to sit up, gasping for air. His called EMS. He denies any chest pain. He has not had any recent fevers or chills, URI symptoms. He has chronic pedal edema but says he has been following his renal diet and CHF fluid restrictions. He had dialysis yesterday, wit 7000mL removed, which is his normal. He still makes urine, 2-3 times per day, which has not changed.. There were no precipitating events that led to the current complaints. At their worst, the symptoms were moderate. In the emergency department, the symptoms have resolved. The patient has experienced similar episodes in the past, multiple times. The patient has been recently been admitted at [facility], was discharged a couple of weeks ago, for similar complaints. Historical: - Allergies: mushrooms; Tape; - Home Meds: 1. albuterol sulfate 90 mcg/actuation Inhl HFAA 2 puffs every 4-6 hours (Last dose: 04/02/2016 20:15) 2. amlodipine 10 mg oral tab 1 tab once daily (Last dose: 04/02/2016 08:00) 3. prednisone 20 mg Oral tab 2 tabs once daily (Last dose: 04/02/2016 08:00) 4. Vitamin D3 4,000 unit oral cap daily 5. omeprazole 40 mg Oral cpDR 1 cap once daily (Last dose: 04/02/2016 08:00) 6. Vitamin D Oral 2000 unit daily (Last dose: 04/02/2016 08:00) 7. Bowie 3 Fish Oil 900-1,400 mg oral cpDR twice a day 8. aspirin 325 mg Oral tab 1 tab once daily (Last dose: 04/02/2016 08:00) 9. isosorbide mononitrate 60 mg Oral Tb24 1 tab once daily (Last dose: 04/02/2016 08:00) 10. clopidogrel 75 mg oral tab 1 tab once daily (Last dose: 04/02/2016 08:00) 11. calcium acetate 667 mg oral cap 4 caps 3 times per day 12. minoxidil 2.5 mg Oral tab 2 tabs 2 times per day 13. Sensipar 30 mg oral tab 1 tab once daily 14. Flovent 110 mcg/actuation Inhl aero 2 puffs 2 times per day 15. furosemide 20 mg Oral tab 4 tab once daily (Last dose: 04/02/2016 08:00) 16. Levemir FlexTouch 100 unit/mL (3 mL) subcutaneous inpn 12 unit daily (Last dose: 04/02/2016 08:00) 17. Humalog Pen sliding scale Sub-Q three times a day 18. atorvastatin 40 mg oral tab 1 tab once daily 19. losartan 100 mg oral tab 1 tab once daily 20. Lopressor 50 mg Oral tab 2 times per day - PMHx: Asthma; CHF; COPD; Diabetes - IDDM: controlled; GERD; Heart Disease; Renal Failure with Dialysis; Stroke; - PSHx: Appendectomy; Tonsillectomy; Adenoidectomy; Open heart surgery; Cardiac stents; toe removed from right foot; shunt placements and revisions; fistula, left arm; - The history from nurses notes was reviewed: and I agree with what is documented. - Social history: Smoking status: Patient uses tobacco products, light tobacco smoker. No barriers to communication noted, The patient speaks fluent Latvian. - Family history: No immediate family members are acutely ill. - : The pt / caregiver states he / she is on anticoagulants: Plavix. Home medication list is obtained from the patient, [employer] import data, pill bottles. - Hospitalizations: : The patient was recently seen at [facility]. - Exposure Risk Screening:: None identified. - Immunization history:: All immunizations up-to-date. - Social history:: the patient is a former smoker, the patient does not drink alcohol. ROS: 20:45 All systems are negative except as listed. The gastrointestinal and genitourinary pc components are also addressed in the HPI. Exam: 20:45 General Appearance: no acute distress, alert. pc 20:45 EENT: ears, nose and throat normal, pharynx normal, mucous membranes moist pale conjunctiva. 20:45 Neck: normal inspection. 20:45 Respiratory: no respiratory distress, no pleuritic chest pain, speaks in full sentences, auscultation reveals rales, in the left posterior lower lobe and right posterior lower lobe. 20:45 Cardiovascular: normal heart rate, normal rhythm, no jugular venous distension appreciated, no murmurs, no gallop, no friction rub. 20:45 Abdomen: non-tender, non-distended, no organomegaly. 20:45 Skin: normal color, warm, dry. 20:45 Extremities: non-tender, normal range of motion of all joints, pedal edema is present and is 2 +. 20:45 Neuro: alert, oriented to person, place and time. 20:45 Psych: normal mood. Vital Signs: 20:33 BP 160 / 70; Pulse 85; Resp 20; Temp 97.3(O); Pulse Ox 98% on R/A; Weight 106.14 kg / mlc 234 lbs; Height 6 ft. 3 in. (190.50 cm); Pain 0/10; 20:40 BP 155 / 72 (auto/); mlc 20:40 Pulse 86 MON; Pulse Ox 97% ; mlc 21:12 Weight 106.59 kg / 234.99 lbs (M); mlc 21:19 BP 183 / 77 (auto/); mlc 21:19 Pulse 84 MON; Pulse Ox 93% ; mlc 21:25 BP 185 / 79 (auto/); mlc 21:54 Pulse 84 MON; Pulse Ox 95% ; mlc 21:54 BP 178 / 80 (auto/); mlc 22:10 BP 173 / 74 (auto/); mlc 22:10 Pulse 82 MON; Pulse Ox 94% ; mlc 22:19 Pulse 84 MON; Pulse Ox 97% ; mlc 22:25 BP 167 / 73 (auto/); mlc 22:25 Pulse 84 MON; Pulse Ox 97% ; mlc 22:40 Pulse 86 MON; Pulse Ox 86% ; mlc 22:40 BP 162 / 72 (auto/); mlc 22:55 Pulse 86 MON; Pulse Ox 90% ; mlc 22:55 BP 159 / 70 (auto/); mlc 23:10 BP 177 / 79 (auto/); mlc 23:11 Pulse 88 MON; Pulse Ox 90% ; mlc 23:25 BP 175 / 87 (auto/); mlc 23:26 Pulse 88 MON; Pulse Ox 91% ; mlc 23:40 BP 165 / 76 (auto/); mlc 23:41 Pulse 86 MON; Pulse Ox 90% ; mlc 23:55 BP 191 / 85 (auto/); mlc 23:56 Pulse 88 MON; Pulse Ox 95% ; mlc 04/03 00:14 Pulse 88 MON; Pulse Ox 98% ; mlc 00:25 BP 190 / 78 (auto/); mlc 00:26 Pulse 84 MON; Pulse Ox 96% ; mlc 00:40 BP 169 / 74 (auto/); mlc 00:41 Pulse 86 MON; Pulse Ox 97% ; mlc 00:55 BP 169 / 78 (auto/); mlc 00:56 Pulse 86 MON; Pulse Ox 95% ; mlc 01:10 BP 153 / 70 (auto/); mlc 01:11 Pulse 86 MON; Pulse Ox 94% ; mlc 01:25 Pulse 86 MON; Pulse Ox 93% ; mlc 01:25 BP 170 / 79 (auto/); mlc 01:40 BP 167 / 76 (auto/); mlc 01:41 Pulse 90 MON; Pulse Ox 90% ; mlc 03:00 Pulse 86 MON; Pulse Ox 98% ; [facility] [place] 04/02 21:12 Body Mass Index 29.37 (106.59 kg, 190.50 cm) mlc MDM: 04/02 20:45 -Blood Culture (Adults Only), peripheral from different site, or from device/port/PICC pc etc. if present ordered. 20:45 Broadcast Maintenance Technician/Pulse Ox/q 15 min VS ordered. pc 20:45 IV Saline Lock ordered. pc 20:45 Rhythm Strip to chart ordered. pc 20:45 Weigh Pt on scale, in Kg (Do Not Use Reported Weight) ordered. pc 20:45 Differential diagnosis: CHF, Chronic Obstructive Pulmonary Disease pulmonary edema, pc Unstable Angina ESRD, AoCD. Plan: labs, EKG, CXR. 20:46 Basic Metabolic Profile Ordered. EDMS 20:46 CBC with Diff Ordered. EDMS 20:46 Cardiac Injury Profile Ordered. EDMS 20:46 Troponin Ordered. EDMS 20:46 -Blood Culture (Adults Only), peripheral from different site, or from device/port/PICC ml3 etc. if present complete. 20:46 -Blood Culture Ordered. EDMS 20:47 Chest, 2 View (pa\E\lat) Ordered. EDMS 20:47 ECG WITH READING ER PHYS+CARDIAG ordered. EDMS 20:48 BLOOD CULTURES Ordered. EDMS 21:05 Financial registration complete. gjb 21:08 [facility] Payment Agreement was scanned into [employer] and attached to record. gjb 21:19 Test interpretation: EKG. pc 22:27 Basic Metabolic Profile Reviewed. pc 22:27 CBC with Diff Reviewed. pc 22:27 Cardiac Injury Profile Reviewed. pc 22:27 Troponin Reviewed. pc 22:32 CT ABD & PELVIS: No Contrast Ordered. EDMS 22:32 CT Chest Without Contrast Ordered. EDMS 23:12 Call Respiratory ordered. pc 23:12 Call Respiratory complete. ml3 23:29 -Arterial Blood Gas Ordered. EDMS 23:57 -Arterial Blood Gas Reviewed. pc 23:57 Oxygen at 2L/min via NC ordered. pc 23:57 Furosemide 40 mg IVP once ordered. pc 04/03 01:07 CT ABD & PELVIS: No Contrast Reviewed. pc 01:07 CT Chest Without Contrast Reviewed. pc 01:23 BED REQUEST+ADM ordered. EDMS 01:24 Antibiotic administration: Not indicated, the patient does not have an appreciated pc infiltrate. Data reviewed: old medical records, vital signs, nurses notes, lab test results, all radiology studies and available results. Data reviewed: EKG(s). Test interpretation: LAB - all labs as ordered have been reviewed, interpreted and considered in the overall management of the clinical presentation; X-RAY - interpreted by Radiologist and personally reviewed, 1 view chest COPD, chronic interstitial changes, ?retrocrural nodes and CT recommended. Test interpretation: Arterial blood gas is normal except. pO2: 56 interpreted by Radiologist and personally reviewed, Abdomen/Pelvis CT; atrophic kidneys Chest CT; mild lymph adenopathy, no CHF. The patient has been re-examined and re-evaluated. The patient's symptoms have mildly improved after treatment. Physician consultation: Dr. Cheryle Mason was contacted at :, regarding admission, and will see patient in ED, shortly. Disposition: The historical points, examination findings, and any diagnostic results supporting the provided diagnosis, were discussed with the patient or legal guardian. The need for further work-up and/or treatment in the hospital was explained. 02:11 Admission / Observation Status ordered. EDMS 02:11 CT Head without contrast Ordered. EDMS 02:11 CONSISTENT CARBOHYDRATES ordered. EDMS 02:12 CARDIAC MARKER PANEL Ordered. EDMS 02:13 CARDIAC MARKER PANEL Ordered. EDMS 02:13 CARDIAC MARKER PANEL Ordered. EDMS 02:30 PROTHROMBIN TIME PROFILE\E\INR Ordered. EDMS 06:53 Fingerstick Blood Sugar Ordered. EDMS 09:53 CT ABD & PELVIS WITH CONTRAST Ordered. EDMS 09:53 CT Chest with contrast Ordered. EDMS EC/25 21:19 Rate is 84 beats/min. Rhythm is regular, Normal Sinus Rhythm. Left axis deviation pc noted. QRS is negative in leads II, aVF. PA interval is normal. QRS interval is prolonged at 153 msec. QT interval is normal. No Q waves. T waves are Normal. ST Segment is depressed in leads I, II, aVF, V3, V4, V5, V6, <1mm. Clinical impression: Normal Sinus Rhythm, Nonspecific ST-T changes, and RBBB. No change from previous ECG on March 29, 2016. Administered Medications: 04/03 00:10 Drug: Furosemide 40 mg [furosemide 10 mg/mL injection solution (4 mL)] Route: IVP; [facility] [place] Site: right antecubital; Critical Care Time: 24 Critical care time: Bedside Care: 30 minutes, Consultation: 10 minutes, Family pc Intervention: 15 minutes. Total time: 55 minutes Signatures: Dispatcher [employer] EDUT Cristino Brewer MD MD pc Lopresti, Mary-Elizabeth, Public Policy Manager Unit ml3 Emily Peña RN RN [facility] [place] Alana Kaiser RN RN nr1 Beck, Gabriela gjb Andrews, Steven, RN RN sa The chart was reviewed and I authenticate all verbal orders and agree with the evaluation and treatment provided.Corrections: (The following items were deleted from the chart) 04/02 23:24 23:13 ARTERIAL BLOOD GAS+LAB ordered. EDMS EDMS Attachments: 21:08 [facility] Payment Agreement gjb Chart Complete MTDD
--- NOTE | 2016-04-05 14:54 | EDDOCDS ---
Nurse's Notes [facility] Name: Antonio Rivera Age: 55 yrs Sex: Male : 1960 Arrival Date: 04/02/2016 Time: 20:17 Bed Admit Hold Private MD: Tonny Cartwright Diagnosis: Chronic obstructive pulmonary disease with (acute) exacerbation;End stage renal disease Presentation: 04/02 20:20 Presenting complaint: EMS states: increased SOB over past few days. pt took 4x mlc albuterol inhaler at home. Adult Sepsis Screening: The patient does not have new or worsening altered mentation. Patient's respiratory rate is less than 22. Status: Patient is not a technical services representative or dependent. Transition of care: patient was not received from another setting of care. Care prior to arrival: Glucose check. 200. 20:20 Method Of Arrival: Ambulance [place] 20:20 Acuity: CHAGO Level 3 [place] 20:25 Adult Sepsis Screening: Patient has a qSOFA score of 0- Negative Sepsis Screen. [place] Suicide/Homicide risk assessment- the patient denies having any suicidal and/or homicidal ideations and does not present with any other emotional, behavioral or mental health complaints. Triage Assessment: 20:33 General: Appears in no apparent distress, comfortable, Behavior is cooperative, pt mlc watching tv. Pain: Denies pain. HIV screening NA for this visit Offered previously. The patient is triaged at the bedside. See Assessment in Nurses Notes section of ED record. Neurological: Level of Consciousness is awake, alert, Oriented to person, place, time. Cardiovascular: Rhythm is regular. Respiratory: Onset: The symptoms/episode began/occurred today, Airway is patent Respiratory effort is even, unlabored, Respiratory pattern is regular, Reports cough that is non-productive. Derm: Skin is normal. Historical: - Allergies: mushrooms; Tape; - Home Meds: 1. albuterol sulfate 90 mcg/actuation Inhl HFAA 2 puffs every 4-6 hours (Last dose: 04/02/2016 20:15) 2. amlodipine 10 mg oral tab 1 tab once daily (Last dose: 04/02/2016 08:00) 3. prednisone 20 mg Oral tab 2 tabs once daily (Last dose: 04/02/2016 08:00) 4. Vitamin D3 4,000 unit oral cap daily 5. omeprazole 40 mg Oral cpDR 1 cap once daily (Last dose: 04/02/2016 08:00) 6. Vitamin D Oral 2000 unit daily (Last dose: 04/02/2016 08:00) 7. [place] 3 Fish Oil 900-1,400 mg oral cpDR twice a day 8. aspirin 325 mg Oral tab 1 tab once daily (Last dose: 04/02/2016 08:00) 9. isosorbide mononitrate 60 mg Oral Tb24 1 tab once daily (Last dose: 04/02/2016 08:00) 10. clopidogrel 75 mg oral tab 1 tab once daily (Last dose: 04/02/2016 08:00) 11. calcium acetate 667 mg oral cap 4 caps 3 times per day 12. minoxidil 2.5 mg Oral tab 2 tabs 2 times per day 13. Sensipar 30 mg oral tab 1 tab once daily 14. Flovent 110 mcg/actuation Inhl aero 2 puffs 2 times per day 15. furosemide 20 mg Oral tab 4 tab once daily (Last dose: 04/02/2016 08:00) 16. Levemir FlexTouch 100 unit/mL (3 mL) subcutaneous inpn 12 unit daily (Last dose: 04/02/2016 08:00) 17. Humalog Pen sliding scale Sub-Q three times a day 18. atorvastatin 40 mg oral tab 1 tab once daily 19. losartan 100 mg oral tab 1 tab once daily 20. Lopressor 50 mg Oral tab 2 times per day - PMHx: Asthma; CHF; COPD; Diabetes - IDDM: controlled; GERD; Heart Disease; Renal Failure with Dialysis; Stroke; - PSHx: Appendectomy; Tonsillectomy; Adenoidectomy; Open heart surgery; Cardiac stents; toe removed from right foot; shunt placements and revisions; fistula, left arm; - The history from nurses notes was reviewed: and I agree with what is documented. - Social history: Smoking status: Patient uses tobacco products, light tobacco smoker. No barriers to communication noted, The patient speaks fluent [place]. - Family history: No immediate family members are acutely ill. - : The pt / caregiver states he / she is on anticoagulants: Plavix. Home medication list is obtained from the patient, [employer] import data, pill bottles. - Hospitalizations: : The patient was recently seen at [facility]. - Exposure Risk Screening:: None identified. - Immunization history:: All immunizations up-to-date. - Social history:: the patient is a former smoker, the patient does not drink alcohol. Screenin:36 Screening information is obtained from the patient. Fall risk: No risks identified. mlc Assistance ADL's: Requires assistance with meal preparation, this assistance is provided by family members, Meals on Wheels, housework, assistance is provided by family members. Abuse/DV Screen: The patient / caregiver reports he/she is: not in a situation that causes fear, pain or injury. Nutritional screening: On renal diet. Advance Directives: Currently, there is a health care proxy, Yee Rivera, . There is an active DNR order but there is no copy available at this time. There is a living will, but a copy is not available at this time. There is an active Power of Heading Matcher And Assembler, Yee Rivera, . home support is adequate. Assessment: 20:39 General: Appears in no apparent distress, comfortable, Behavior is appropriate for age, mlc cooperative, pt watching tv. Pain: Denies pain. Neurological: Level of Consciousness is awake, alert, Oriented to person, place, time. Cardiovascular: Heart tones S1 S2 present Rhythm is sinus rhythm. Cardiovascular: Chest pain is denied. Respiratory: Airway. Respiratory: Airway is patent Respiratory effort is even, unlabored, Respiratory pattern is regular, Breath sounds are diminished bilaterally. Reports cough that is non-productive, pain with cough. Derm: Skin is. 21:31 Reassessment: Patient appears in no apparent distress at this time. Patient states mlc symptoms have not improved. no changes since prior. pt resting comfortably in bed. . Cardiovascular: Edema is 3+ to left ankle, left foot, right ankle and right foot. 22:12 Reassessment: Patient appears in no apparent distress at this time. pt resting with mlc eyes closed. resp easy/unlabored. . 23:00 Reassessment: Patient appears in no apparent distress at this time. pt resting mlc comfortably in bed, watching tv. resp easy/unlabored. . 23:56 Reassessment: Patient appears in no apparent distress at this time. pt states he feels mlc SOB, pt repositioned and sitting at side of bed. SPO2 at 95%. Dr. Brewer made aware. Respiratory: Breath sounds are coarse expiratory bilaterally. Breath sounds are diminished. 04/03 00:15 Reassessment: Patient appears in no apparent distress at this time. Patient states mlc feeling better. pt medicated per order. urinal at bedside. NC in place. 02:10 General: Appears in no apparent distress, comfortable, pt resting with eyes closed, mlc resp easy/unlabored. . 03:01 General: Appears in no apparent distress, comfortable, Behavior is cooperative. mlc General: pt reports being unable to urinate at this time. Neurological: Level of Consciousness is awake, alert, Oriented to person, place, time. Respiratory: Airway is patent Respiratory effort is even, unlabored, Respiratory pattern is regular. 03:01 General: report given to Ani Tillman RN. [place] 07:12 Reassessment: PATIENT IS AN ED DOMÍNGUEZ. ALL FURTHER DOCUMENTATION TO BE DONE IN [facility].nr1 Vital Signs: 04/02 20:33 BP 160 / 70; Pulse 85; Resp 20; Temp 97.3(O); Pulse Ox 98% on R/A; Weight 106.14 kg; mlc Height 6 ft. 3 in. (190.50 cm); Pain 0/10; 20:40 BP 155 / 72 (auto/); mlc 20:40 Pulse 86 MON; Pulse Ox 97% ; mlc 21:12 Weight 106.59 kg (M); mlc 21:19 BP 183 / 77 (auto/); mlc 21:19 Pulse 84 MON; Pulse Ox 93% ; mlc 21:25 BP 185 / 79 (auto/); mlc 21:54 Pulse 84 MON; Pulse Ox 95% ; mlc 21:54 BP 178 / 80 (auto/); mlc 22:10 BP 173 / 74 (auto/); mlc 22:10 Pulse 82 MON; Pulse Ox 94% ; mlc 22:19 Pulse 84 MON; Pulse Ox 97% ; mlc 22:25 BP 167 / 73 (auto/); mlc 22:25 Pulse 84 MON; Pulse Ox 97% ; mlc 22:40 Pulse 86 MON; Pulse Ox 86% ; mlc 22:40 BP 162 / 72 (auto/); mlc 22:55 Pulse 86 MON; Pulse Ox 90% ; mlc 22:55 BP 159 / 70 (auto/); mlc 23:10 BP 177 / 79 (auto/); mlc 23:11 Pulse 88 MON; Pulse Ox 90% ; mlc 23:25 BP 175 / 87 (auto/); mlc 23:26 Pulse 88 MON; Pulse Ox 91% ; mlc 23:40 BP 165 / 76 (auto/); mlc 23:41 Pulse 86 MON; Pulse Ox 90% ; mlc 23:55 BP 191 / 85 (auto/); mlc 23:56 Pulse 88 MON; Pulse Ox 95% ; mlc 04/03 00:14 Pulse 88 MON; Pulse Ox 98% ; mlc 00:25 BP 190 / 78 (auto/); mlc 00:26 Pulse 84 MON; Pulse Ox 96% ; mlc 00:40 BP 169 / 74 (auto/); mlc 00:41 Pulse 86 MON; Pulse Ox 97% ; mlc 00:55 BP 169 / 78 (auto/); mlc 00:56 Pulse 86 MON; Pulse Ox 95% ; mlc 01:10 BP 153 / 70 (auto/); mlc 01:11 Pulse 86 MON; Pulse Ox 94% ; mlc 01:25 Pulse 86 MON; Pulse Ox 93% ; mlc 01:25 BP 170 / 79 (auto/); mlc 01:40 BP 167 / 76 (auto/); mlc 01:41 Pulse 90 MON; Pulse Ox 90% ; mlc 03:00 Pulse 86 MON; Pulse Ox 98% ; mlc 04/02 21:12 Body Mass Index 29.37 (106.59 kg, 190.50 cm) mlc Vitals: 04/02 20:33 Log In Time N/A - ambulance arrival. [place] ED Course: 20:18 Patient visited by Trae Duran, Librarian Helper. ml3 20:18 Patient moved to Waiting ml3 20:19 URBANO WOODWARD is Private Physician. ml3 20:19 Tonny Cartwright is Private Physician. ml3 20:19 Emily Peña,RADHA is Primary Nurse. ml3 20:19 Patient moved to 5 ml3 20:22 Cristino Brewer MD is Attending Physician. pc 20:24 Triage Initiated mlc 20:37 Patient visited by Emily Peña RN. mlc 20:39 media monitor on. Pulse ox on. NIBP on. mlc 20:41 Patient visited by Emily Peña,RADHA. mlc 20:44 Patient visited by Cristino Brewer MD. pc 21:08 [facility] Payment Agreement was scanned into [employer] and attached to record. gjb 21:20 EKG done. (by ED staff). Reviewed by Cristino Brewer MD. mlc 21:23 Patient visited by Pancho aRmirez PCA. kb5 21:31 The patient / caregiver is instructed regarding the plan of care and ED course. [place] 21:31 Inserted saline lock: 20 gauge in right antecubital area and blood collected. The [place] patient tolerated the procedure well. by Danika Pizarro RN. 22:27 Patient visited by Cristino Brewer MD. pc 23:05 Patient visited by Pancho Ramirez PCA. kb5 23:41 -Arterial Blood Gas Sent. bb3 23:58 Patient visited by Emily Peña RN. [place] 04/03 00:14 O2 via nasal cannula \T\ 2L/min. mlc 00:16 Patient visited by Emily Peña RN. mlc 00:54 CT ABD & PELVIS: No Contrast Returned. EDMS 00:54 CT Chest Without Contrast Returned. EDMS 00:55 Patient visited by Pancho Ramirez PCA. kb5 01:27 Cheryle Mason is Hospitalizing Provider. pc 02:27 Patient moved to Admit Hold ml3 02:50 CT Head without contrast Returned. EDMS 03:03 Patient visited by Emily Peña RN. mlc 07:29 Primary Nurse role handed off by Emily Peña RN kr3 07:36 EKG-ADULT Returned. EDMS 09:49 Chest, 2 View (pa\E\lat) Returned. EDMS Administered Medications: 00:10 Drug: Furosemide 40 mg [furosemide 10 mg/mL injection solution (4 mL)] Route: IVP; [place] Site: right antecubital; RT: 04/02 23:41 ABG's drawn from right radial artery pressure held for 5 minutes no bleeding noted bb3 pressure bandage applied specimen sent pt. tolerated well. Oxygen is room air. Order Results: Lab Order: Basic Metabolic Profile; SPEC'M 04/02/16 20:58 Test: GLUCOSE, FASTING; Value: 127; Range: 70-105; Abnormal: Above high normal; Units: MG/DL; Status: F Test: BLOOD UREA NITROGEN; Value: 41; Range: 7-18; Abnormal: Above high normal; Units: MG/DL; Status: F Test: CREATININE FOR GFR; Value: 5.86; Range: 0.70-1.30; Abnormal: Above high normal; Units: MG/DL; Status: F Test: GLOMERULAR FILTRATION RATE; Value: 10.7; Range: >56; Abnormal: Below low normal; Status: F Test: SODIUM LEVEL; Value: 136; Range: 136-145; Units: MEQ/L; Status: F Test: POTASSIUM SERUM; Value: 5.3; Range: 3.5-5.1; Abnormal: Above high normal; Units: MEQ/L; Status: F Test: CHLORIDE LEVEL; Value: 97; Range: 98-107; Abnormal: Below low normal; Units: MEQ/L; Status: F Test: CARBON DIOXIDE LEVEL; Value: 29; Range: 21-32; Units: MEQ/L; Status: F Test: ANION GAP; Value: 10; Range: 8-16; Units: MEQ/L; Status: F Test: CALCIUM LEVEL; Value: 9.0; Range: 8.5-10.1; Units: MG/DL; Status: F Test Note: ; Units are mL/min/1.73 m2 Chronic Kidney Disease Staging per NKF: Stage I & II GFR >=60 Normal to Mildly Decreased Stage III GFR 30-59 Moderately Decreased Stage IV GFR 15-29 Severely Decreased Stage V GFR <15 Very Little GFR Left ESRD GFR <15 on INSULATION CUPOLA OPERATOR Lab Order: CBC with Diff; SPEC'M 04/02/16 20:58 Test: WHITE BLOOD COUNT; Value: 6.1; Range: 4.0-10.0; Units: K/mm3; Status: F Test: RED BLOOD COUNT; Value: 3.39; Range: 4.30-6.10; Abnormal: Below low normal; Units: M/mm3; Status: F Test: HEMOGLOBIN; Value: 11.3; Range: 14.0-18.0; Abnormal: Below low normal; Units: g/dl; Status: F Test: HEMATOCRIT; Value: 33.4; Range: 42.0-52.0; Abnormal: Below low normal; Units: %; Status: F Test: MEAN CORPUSCULAR VOLUME; Value: 98.4; Range: 80.0-96.0; Abnormal: Above high normal; Units: fl; Status: F Test: MEAN CORPUSCULAR HEMOGLOBIN; Value: 33.3; Range: 27.0-33.0; Abnormal: Above high normal; Units: pg; Status: F Test: MEAN CORPUSCULAR HGB CONC; Value: 33.8; Range: 32.0-36.5; Units: g/dl; Status: F Test: RED CELL DISTRIBUTION WIDTH; Value: 16.1; Range: 11.5-14.5; Abnormal: Above high normal; Units: %; Status: F Test: PLATELET COUNT, AUTOMATED; Value: 209; Range: 150-450; Units: k/mm3; Status: F Test: NEUTROPHILS %; Value: 74.8; Range: 36.0-66.0; Abnormal: Above high normal; Units: %; Status: F Test: LYMPH %; Value: 12.2; Range: 24.0-44.0; Abnormal: Below low normal; Units: %; Status: F Test: MONO %; Value: 7.8; Range: 0.0-5.0; Abnormal: Above high normal; Units: %; Status: F Test: EOS %; Value: 3.7; Range: 0.0-3.0; Abnormal: Above high normal; Units: %; Status: F Test: BASO %; Value: 0.3; Range: 0.0-1.0; Units: %; Status: F Test: LARGE UNSTAINED CELL %; Value: 1.2; Range: 0.0-4.0; Units: %; Status: F Test: NEUTROPHILS #; Value: 4.6; Range: 1.8-7.7; Units: K/mm3; Status: F Test: LYMPH #; Value: 0.8; Range: 1.5-4.5; Abnormal: Below low normal; Units: K/mm3; Status: F Test: MONO #; Value: 0.5; Range: 0.0-0.8; Units: K/mm3; Status: F Test: EOS #; Value: 0.2; Range: 0.0-0.50; Units: K/mm3; Status: F Test: BASO #; Value: 0.0; Range: 0.0-0.2; Units: K/mm3; Status: F Test: LARGE UNSTAINED CELL #; Value: 0.1; Range: 0.0-0.4; Units: K/mm3; Status: F Lab Order: Cardiac Injury Profile; SPEC'M 04/02/16 20:58 Test: CPK CREATINE PHOSPHOKINASE; Value: 173; Range: 39-308; Units: U/L; Status: F Test: CK-MB VALUE MASS; Value: 5.0; Range: 0.0-3.6; Abnormal: Above high normal; Units: NG/ML; Status: F Test: MB/CK RELATIVE INDEX; Value: 2.89; Range: < OR =4; Status: F Test Note: ; DIAGNOSIS CRITERIA MMB ng/ml Relative Index (RI) NON-AMI < or = 5 N/A MONREAL ZONE > 5 < or = 4 AMI > 5 > 4 Lab Order: Troponin; [facility] 04/02/16 20:58 Test: TROPONIN I; Value: 0.06; Range: < 0.10; Units: NG/ML; Status: F Test Note: ; Troponin I Reference Interval for [employer] LOCI: 99th Percentile= 0.00-0.045 ng/ml Risk Stratification: <= 0.10 ng/ml Decreased Risk for Adverse Clinical Events. 0.10-1.50 ng/ml Increased Risk for Adverse Clinical Events. Evaluation of additional criterion and/or repeat testing in 2-6 hours is suggested to rule out myocardial damage. >= 1.50 ng/ml Indicative of Myocardial Injury. Lab Order: -Arterial Blood Gas; [facility] 04/02/16 23:28 Test: ABG pH (ARTERIAL); Value: 7.439; Range: 7.350-7.450; Units: UNITS; Status: F Test: ABG PARTIAL PRESSURE CO2; Value: 37.2; Range: 35.0-45.0; Units: mmHg; Status: F Test: ABG PARTIAL PRESSURE O2; Value: 56.0; Range: 75.0-100.0; Abnormal: Below low normal; Units: mmHg; Status: F Test: ABG TOTAL CO2; Value: 25.8; Range: 22.0-29.0; Units: MEQ/L; Status: F Test: ABG HCO3; Value: 24.6; Range: 22.0-26.0; Units: MEQ/L; Status: F Test: ABG BASE EXCESS; Value: 0.7; Range: -2.0-2.0; Status: F Test: ABG STANDARD HCO3; Value: 24.9; Range: 22.0-26.0; Units: MEQ/L; Status: F Test: ABG O2 SATURATION; Value: 90.3; Range: 95.0-99.0; Abnormal: Below low normal; Units: %; Status: F Test: ABG DEVICE; Value: NASAL IRON; Status: F Lab Order: CARDIAC MARKER PANEL; SPEC'04/03/16 05:20 Test: CPK CREATINE PHOSPHOKINASE; Value: 143; Range: 39-308; Units: U/L; Status: F Test: CK-MB VALUE MASS; Value: 3.9; Range: 0.0-3.6; Abnormal: Above high normal; Units: NG/ML; Status: F Test: MB/CK RELATIVE INDEX; Value: 2.72; Range: < OR =4; Status: F Test: TROPONIN I; Value: 0.07; Range: < 0.10; Units: NG/ML; Status: F Test Note: ; DIAGNOSIS CRITERIA MMB ng/ml Relative Index (RI) NON-AMI < or = 5 N/A MONREAL ZONE > 5 < or = 4 AMI > 5 > 4 Lab Order: PROTHROMBIN TIME PROFILE\E\INR; SPEC'04/03/16 05:20 Test: PROTHROMBIN TIME; Value: 13.1; Range: 12.3-14.5; Units: SECONDS; Status: F Test: INR; Value: 0.98; Status: F Test Note: ; THERAPUTIC HUMAN INR VALUES INDICATIONS NORMAL RANGES PROPHYLAXIS/TREATMENT OF: VENOUS THROMBOSIS 2.0-3.0 PULMONARY EMBOLISM 2.0-3.0 PREVENTION OF SYSTEMIC EMBOLISM FROM: TISSUE HEART VALVES 2.0-3.0 ACUTE MYOCARDIAL INFARCTION 2.0-3.0 VALVULAR HEART DISEASE 2.0-3.0 ATRIAL FIBRILLATION 2.0-3.0 MECHANICAL VALVES(HIGH RISK) 2.5-3.5 RECURRENT MYOCARDIAL INFARCTION 2.5-3.5 Lab Order: Fingerstick Blood Sugar; SPEC'04/03/16 06:44 Test: BEDSIDE GLUCOSE; Value: 133; Range: 70-105; Abnormal: Above high normal; Units: MG/DL; Status: F Radiology Order: Chest, 2 View (pa\E\lat) Test: Chest, 2 View (pa\E\lat) REASON FOR EXAMINATION: Shortness of Breath; Chest x-ray: Two views.; ; History: Shortness of breath.; ; Comparison chest x-ray is from March 29, 2016.; ; Findings: Cardiomegaly, prior sternotomy wires and right paratracheal soft; tissue widening are again seen unchanged. Mediastinal fullness behind the heart; is again seen unchanged. Interstitial markings are slightly prominent question; early interstitial edema. There is cephalization of the pulmonary vasculature.; No kristina pleural effusion seen.; ; Impression:; ; No significant change from March 29, 2016.; ; ; Signed by; Yeison Krishnan MD 04/03/2016 10:38 A; Radiology Order: EKG-ADULT Test: EKG-ADULT REASON FOR EXAMINATION: Shortness of Breath; Stationary ECG Study; [facility] - ED; ; Test Date: 2016-04-02; Pat Name: ANTONIO RIVERA Department:; Room: [place] [address]; Gender: M Coun[employer]: melissa; : 1960 Requested By: Cristino Briceno; Order Number: [id number] Reading MD: Elissa Medellin; Measurements; Intervals [place]; Rate: 84 P: -16; CO: 133 QRS: 228; QRSD: 153 T: 45; QT: 384; QTc: 454; Interpretive Statements; SINUS RHYTHM; POSSIBLE LEFT ATRIAL ENLARGEMENT; INDETERMINATE AXIS; RIGHT BUNDLE BRANCH BLOCK AND POSSIBLE RIGHT VENTRICULAR HYPERTROPHY; SIMILAR 03/29/16; Electronically Signed On 04-03-2016 7:27:09 EST by Elissa Medellin; Radiology Order: CT ABD & PELVIS: No Contrast Test: CT ABD & PELVIS: No Contrast REASON FOR EXAMINATION: ? retrocrural/upper abd adenopathy; ; CLINICAL HISTORY: CHF, assess for retrocrural and upper abdominal adenopathy.; TECHNIQUE: CT of the chest, abdomen and pelvis was performed without intravenous contrast by obtainin; g contiguous CT axial slices from level of the vocal cords to the proximal femoral diaphyses. Multipl; kathi reformats were obtained in the coronal and sagittal projections.; COMPARISON: None; FINDINGS :; LOWER NECK: Thyroid gland is unremarkable. No mass, suspicious cystic lesion, or enlarged adenopathy; identified.; AXILLA AND MEDIASTINUM: There are multiple prominent to mildly enlarged mediastinal paratracheal, per; iaortic, and subcarinal nodes. Multiple retrocrural tortuous venous structures noted.; HEART AND GREAT VESSELS: Status post median sternotomy and CABG. Heart is normal in size with no liz; cardial effusion. Great vessels demonstrate no aneurysmal dilatation.; LUNGS/AIRWAYS/PLEURA: No acute infiltrate, effusion, mass, suspicious nodule, or pneumothorax.; LIVER: Normal in size with smooth contours.; BILIARY SYSTEM: No intrahepatic biliary ductal dilatation is seen. The common duct is normal in calib; er. The gallbladder demonstrates 102 mm stones without wall thickening or pericholecystic fluid.; PANCREAS: The pancreas is normal in size, contour and density. No suspicious cystic lesion or ductal; dilatation.; SPLEEN: Normal in size with no suspicious cystic lesion.; ADRENALS: The adrenal glands are unremarkable.; KIDNEYS/URETERS: Bilateral renal atrophy with cortical scarring with multiple simple as well as prote; inaceous versus hemorrhagic cysts-were a few are peripherally calcified in right upper pole. There ar; e also heterogeneous and more nodular measuring up to lesions for reference measuring up to 2.1 cm po; sterior left interpole axial series 205, images 51 and 2.3 cm anterior left interpole exophytic image; 58. No stones or hydronephrosis.; URINARY BLADDER: Circumferential wall thickening noted without stones or diverticula.; PROSTATE/SEMINAL VESICLES: Within normal size limits.; AORTA AND ILIAC ARTERIES AND VEINS:; -Diffuse atherosclerotic calcifications noted without aneurysmal dilatation; -The infrahepatic IVC is diminutive, superiorly there appears to be more as echoes continuation of th; e IVC.; LYMPH NODES: No enlarged adenopathy.; GASTROINTESTINAL: The bowel is normal in caliber. No foci of small or large bowel wall thickening are; seen.; PERITONEUM: No abdominal or pelvic ascites is seen. No peritoneal mass is seen.; ABDOMINAL/PELVIC WALL: No hernia is identified.; OSSEOUS STRUCTURES/SOFT TISSUES: No suspicious osseous lesion, acute fracture, or soft tissue abnorma; lity. Multilevel degenerative changes of the spine, moderate to severe at L2-L3 and L5-S1 with disc s; pace narrowing, subchondral sclerosis, vacuum phenomenon.; IMPRESSION :; 1. No evidence of CHF.; 2. There are multiple prominent to mildly enlarged mediastinal nodes which may be benign reactive alt; neha there is clinical history of malignancy metastatic disease should be considered and such cases; short interim follow-up CT in 2 month would be recommended to exclude growth.; -No definitive evidence of abdominal pelvic adenopathy. Periaortic structures in the upper abdomen ar; e likely tortuous venous channels and may represent azygos continuation of the IVC or other vascular; anomaly. If clinically necessitated this can be further confirmed by contrast CT abdomen/pelvis.; 3. Bilateral renal atrophy with scarring and multiple cysts as described although a few more nodular; appearing in the left kidney cannot be definitively characterized. There is no prior imaging to docum; ent stability of these findings, further evaluation with contrast MR abdomen (preferable if no contra; indications) versus contrast CT abdomen should be considered to exclude a cortical neoplasm.; ; Radiology Order: CT Chest Without Contrast Test: CT Chest Without Contrast REASON FOR EXAMINATION: COPD, ?RML infiltrate, ?CHF; ; CLINICAL HISTORY: CHF, assess for retrocrural and upper abdominal adenopathy.; TECHNIQUE: CT of the chest, abdomen and pelvis was performed without intravenous contrast by obtainin; g contiguous CT axial slices from level of the vocal cords to the proximal femoral diaphyses. Multipl; kathi reformats were obtained in the coronal and sagittal projections.; COMPARISON: None; FINDINGS :; LOWER NECK: Thyroid gland is unremarkable. No mass, suspicious cystic lesion, or enlarged adenopathy; identified.; AXILLA AND MEDIASTINUM: There are multiple prominent to mildly enlarged mediastinal paratracheal, per; iaortic, and subcarinal nodes. Multiple retrocrural tortuous venous structures noted.; HEART AND GREAT VESSELS: Status post median sternotomy and CABG. Heart is normal in size with no liz; cardial effusion. Great vessels demonstrate no aneurysmal dilatation.; LUNGS/AIRWAYS/PLEURA: No acute infiltrate, effusion, mass, suspicious nodule, or pneumothorax.; LIVER: Normal in size with smooth contours.; BILIARY SYSTEM: No intrahepatic biliary ductal dilatation is seen. The common duct is normal in calib; er. The gallbladder demonstrates 102 mm stones without wall thickening or pericholecystic fluid.; PANCREAS: The pancreas is normal in size, contour and density. No suspicious cystic lesion or ductal; dilatation.; SPLEEN: Normal in size with no suspicious cystic lesion.; ADRENALS: The adrenal glands are unremarkable.; KIDNEYS/URETERS: Bilateral renal atrophy with cortical scarring with multiple simple as well as prote; inaceous versus hemorrhagic cysts-were a few are peripherally calcified in right upper pole. There ar; e also heterogeneous and more nodular measuring up to lesions for reference measuring up to 2.1 cm po; sterior left interpole axial series 205, images 51 and 2.3 cm anterior left interpole exophytic image; 58. No stones or hydronephrosis.; URINARY BLADDER: Circumferential wall thickening noted without stones or diverticula.; PROSTATE/SEMINAL VESICLES: Within normal size limits.; AORTA AND ILIAC ARTERIES AND VEINS:; -Diffuse atherosclerotic calcifications noted without aneurysmal dilatation; -The infrahepatic IVC is diminutive, superiorly there appears to be more as echoes continuation of th; e IVC.; LYMPH NODES: No enlarged adenopathy.; GASTROINTESTINAL: The bowel is normal in caliber. No foci of small or large bowel wall thickening are; seen.; PERITONEUM: No abdominal or pelvic ascites is seen. No peritoneal mass is seen.; ABDOMINAL/PELVIC WALL: No hernia is identified.; OSSEOUS STRUCTURES/SOFT TISSUES: No suspicious osseous lesion, acute fracture, or soft tissue abnorma; lity. Multilevel degenerative changes of the spine, moderate to severe at L2-L3 and L5-S1 with disc s; pace narrowing, subchondral sclerosis, vacuum phenomenon.; IMPRESSION :; 1. No evidence of CHF.; 2. There are multiple prominent to mildly enlarged mediastinal nodes which may be benign reactive alt; neha there is clinical history of malignancy metastatic disease should be considered and such cases; short interim follow-up CT in 2 month would be recommended to exclude growth.; -No definitive evidence of abdominal pelvic adenopathy. Periaortic structures in the upper abdomen ar; e likely tortuous venous channels and may represent azygos continuation of the IVC or other vascular; anomaly. If clinically necessitated this can be further confirmed by contrast CT abdomen/pelvis.; 3. Bilateral renal atrophy with scarring and multiple cysts as described although a few more nodular; appearing in the left kidney cannot be definitively characterized. There is no prior imaging to docum; ent stability of these findings, further evaluation with contrast MR abdomen (preferable if no contra; indications) versus contrast CT abdomen should be considered to exclude a cortical neoplasm.; ; Radiology Order: CT Head without contrast Test: CT Head without contrast REASON FOR EXAMINATION: slipped on ice, fell, and hit head; on eliquis; ; CLINICAL HISTORY: Trauma.; TECHNIQUE: Multiple axial CT images were obtained through the brain without IV contrast material.; COMMENTS:; Right parietal chronic encephalomalacia.; There is normal configuration of sella turcica. There are no intra or extra-axial collections. There; is no mass effect or midline shift. There is no evidence of hematoma formation. No hydrocephalus is p; resent. The ventricles are symmetrical. No abnormal calcifications are present.; There is diffuse age-appropriate cerebellar and cerebral atrophy with proportionally dilated ventricl; es and cortical sulci.; There are bilateral periventricular and subcortical white matter hypolucencies compatible with mild c; hronic microvascular disease.; Otherwise, no significant focal abnormalities are seen either in the posterior fossa or supratentoria; l compartment.; IMPRESSION:; 1. Age-appropriate cerebellar and cerebral atrophy. Right parietal chronic encephalomalacia.; 2. Mild chronic microvascular disease.; 3. No evidence of acute intracranial pathology.; Thank you for your kind referral of this patient.; ; ; Outcome: 04/03 01:27 Decision to Hospitalize by Provider. pc 13:52 Patient left the ED. nr1 Signatures: Dispatcher [employer] EDMS Cristino Brewer MD MD Trae Duran, Librarian Helper Unit ml3 Cindy CalleRN RN kr3 Pancho Ramirez, MERLE OPERATOR LIGHTS kb5 Ac Penny bb3 Emily Peña RN RN mlc Rillera, Nicole, RN RN nr1 Shelia Judd Chart Complete MTDD
--- NOTE | 2016-04-05 14:54 | EDDOCDS ---
Physician Documentation [facility] Name: Antonio Rivera Age: 55 yrs Sex: Male : 1960 Arrival Date: 04/02/2016 Time: 20:17 Bed Admit Hold Private MD: Tonny Cartwright Disposition: 04/03 01:24 Critical Care:. pc Disposition: 04/03/16 01:27 Hospitalization ordered by Cheryle Mason for Inpatient Admission. Preliminary diagnosis are Chronic obstructive pulmonary disease with (acute) exacerbation, End stage renal disease. - Bed requested for PCU. - Status is Inpatient Admission. nr1 - Condition is Stable. - Problem is new. - Symptoms have improved. HPI: 04/02 20:45 This 55 yrs old Male presents to ER via Ambulance with complaints of pc Breathing Difficulty. 20:45 The history is obtained from the patient, the patient's spouse. The patient presents pc with shortness of breath, with a prior history of COPD, congestive heart failure. The symptoms began suddenly just prior to arrival. The symptoms He was lying down and suddenly had to sit up, gasping for air. His called EMS. He denies any chest pain. He has not had any recent fevers or chills, URI symptoms. He has chronic pedal edema but says he has been following his renal diet and CHF fluid restrictions. He had dialysis yesterday, wit 7000mL removed, which is his normal. He still makes urine, 2-3 times per day, which has not changed.. There were no precipitating events that led to the current complaints. At their worst, the symptoms were moderate. In the emergency department, the symptoms have resolved. The patient has experienced similar episodes in the past, multiple times. The patient has been recently been admitted at [facility], was discharged a couple of weeks ago, for similar complaints. Historical: - Allergies: mushrooms; Tape; - Home Meds: 1. albuterol sulfate 90 mcg/actuation Inhl HFAA 2 puffs every 4-6 hours (Last dose: 04/02/2016 20:15) 2. amlodipine 10 mg oral tab 1 tab once daily (Last dose: 04/02/2016 08:00) 3. prednisone 20 mg Oral tab 2 tabs once daily (Last dose: 04/02/2016 08:00) 4. Vitamin D3 4,000 unit oral cap daily 5. omeprazole 40 mg Oral cpDR 1 cap once daily (Last dose: 04/02/2016 08:00) 6. Vitamin D Oral 2000 unit daily (Last dose: 04/02/2016 08:00) 7. [place] 3 Fish Oil 900-1,400 mg oral cpDR twice a day 8. aspirin 325 mg Oral tab 1 tab once daily (Last dose: 04/02/2016 08:00) 9. isosorbide mononitrate 60 mg Oral Tb24 1 tab once daily (Last dose: 04/02/2016 08:00) 10. clopidogrel 75 mg oral tab 1 tab once daily (Last dose: 04/02/2016 08:00) 11. calcium acetate 667 mg oral cap 4 caps 3 times per day 12. minoxidil 2.5 mg Oral tab 2 tabs 2 times per day 13. Sensipar 30 mg oral tab 1 tab once daily 14. Flovent 110 mcg/actuation Inhl aero 2 puffs 2 times per day 15. furosemide 20 mg Oral tab 4 tab once daily (Last dose: 04/02/2016 08:00) 16. Levemir FlexTouch 100 unit/mL (3 mL) subcutaneous inpn 12 unit daily (Last dose: 04/02/2016 08:00) 17. Humalog Pen sliding scale Sub-Q three times a day 18. atorvastatin 40 mg oral tab 1 tab once daily 19. losartan 100 mg oral tab 1 tab once daily 20. Lopressor 50 mg Oral tab 2 times per day - PMHx: Asthma; CHF; COPD; Diabetes - IDDM: controlled; GERD; Heart Disease; Renal Failure with Dialysis; Stroke; - PSHx: Appendectomy; Tonsillectomy; Adenoidectomy; Open heart surgery; Cardiac stents; toe removed from right foot; shunt placements and revisions; fistula, left arm; - The history from nurses notes was reviewed: and I agree with what is documented. - Social history: Smoking status: Patient uses tobacco products, light tobacco smoker. No barriers to communication noted, The patient speaks fluent [place]ian. - Family history: No immediate family members are acutely ill. - : The pt / caregiver states he / she is on anticoagulants: Plavix. Home medication list is obtained from the patient, [employer] import data, pill bottles. - Hospitalizations: : The patient was recently seen at [facility]. - Exposure Risk Screening:: None identified. - Immunization history:: All immunizations up-to-date. - Social history:: the patient is a former smoker, the patient does not drink alcohol. ROS: 20:45 All systems are negative except as listed. The gastrointestinal and genitourinary pc components are also addressed in the HPI. Exam: 20:45 General Appearance: no acute distress, alert. pc 20:45 EENT: ears, nose and throat normal, pharynx normal, mucous membranes moist pale conjunctiva. 20:45 Neck: normal inspection. 20:45 Respiratory: no respiratory distress, no pleuritic chest pain, speaks in full sentences, auscultation reveals rales, in the left posterior lower lobe and right posterior lower lobe. 20:45 Cardiovascular: normal heart rate, normal rhythm, no jugular venous distension appreciated, no murmurs, no gallop, no friction rub. 20:45 Abdomen: non-tender, non-distended, no organomegaly. 20:45 Skin: normal color, warm, dry. 20:45 Extremities: non-tender, normal range of motion of all joints, pedal edema is present and is 2 +. 20:45 Neuro: alert, oriented to person, place and time. 20:45 Psych: normal mood. Vital Signs: 20:33 BP 160 / 70; Pulse 85; Resp 20; Temp 97.3(O); Pulse Ox 98% on R/A; Weight 106.14 kg / mlc 234 lbs; Height 6 ft. 3 in. (190.50 cm); Pain 0/10; 20:40 BP 155 / 72 (auto/); mlc 20:40 Pulse 86 MON; Pulse Ox 97% ; mlc 21:12 Weight 106.59 kg / 234.99 lbs (M); mlc 21:19 BP 183 / 77 (auto/); mlc 21:19 Pulse 84 MON; Pulse Ox 93% ; mlc 21:25 BP 185 / 79 (auto/); mlc 21:54 Pulse 84 MON; Pulse Ox 95% ; mlc 21:54 BP 178 / 80 (auto/); mlc 22:10 BP 173 / 74 (auto/); mlc 22:10 Pulse 82 MON; Pulse Ox 94% ; mlc 22:19 Pulse 84 MON; Pulse Ox 97% ; mlc 22:25 BP 167 / 73 (auto/); mlc 22:25 Pulse 84 MON; Pulse Ox 97% ; mlc 22:40 Pulse 86 MON; Pulse Ox 86% ; mlc 22:40 BP 162 / 72 (auto/); mlc 22:55 Pulse 86 MON; Pulse Ox 90% ; mlc 22:55 BP 159 / 70 (auto/); mlc 23:10 BP 177 / 79 (auto/); mlc 23:11 Pulse 88 MON; Pulse Ox 90% ; mlc 23:25 BP 175 / 87 (auto/); mlc 23:26 Pulse 88 MON; Pulse Ox 91% ; mlc 23:40 BP 165 / 76 (auto/); mlc 23:41 Pulse 86 MON; Pulse Ox 90% ; mlc 23:55 BP 191 / 85 (auto/); mlc 23:56 Pulse 88 MON; Pulse Ox 95% ; mlc 04/03 00:14 Pulse 88 MON; Pulse Ox 98% ; mlc 00:25 BP 190 / 78 (auto/); mlc 00:26 Pulse 84 MON; Pulse Ox 96% ; mlc 00:40 BP 169 / 74 (auto/); mlc 00:41 Pulse 86 MON; Pulse Ox 97% ; mlc 00:55 BP 169 / 78 (auto/); mlc 00:56 Pulse 86 MON; Pulse Ox 95% ; mlc 01:10 BP 153 / 70 (auto/); mlc 01:11 Pulse 86 MON; Pulse Ox 94% ; mlc 01:25 Pulse 86 MON; Pulse Ox 93% ; mlc 01:25 BP 170 / 79 (auto/); mlc 01:40 BP 167 / 76 (auto/); mlc 01:41 Pulse 90 MON; Pulse Ox 90% ; mlc 03:00 Pulse 86 MON; Pulse Ox 98% ; [facility] 04/02 21:12 Body Mass Index 29.37 (106.59 kg, 190.50 cm) mlc MDM: 04/02 20:45 -Blood Culture (Adults Only), peripheral from different site, or from device/port/PICC pc etc. if present ordered. 20:45 Hot Box Spotter/Pulse Ox/q 15 min VS ordered. pc 20:45 IV Saline Lock ordered. pc 20:45 Rhythm Strip to chart ordered. pc 20:45 Weigh Pt on scale, in Kg (Do Not Use Reported Weight) ordered. pc 20:45 Differential diagnosis: CHF, Chronic Obstructive Pulmonary Disease pulmonary edema, pc Unstable Angina ESRD, AoCD. Plan: labs, EKG, CXR. 20:46 Basic Metabolic Profile Ordered. EDMS 20:46 CBC with Diff Ordered. EDMS 20:46 Cardiac Injury Profile Ordered. EDMS 20:46 Troponin Ordered. EDMS 20:46 -Blood Culture (Adults Only), peripheral from different site, or from device/port/PICC ml3 etc. if present complete. 20:46 -Blood Culture Ordered. EDMS 20:47 Chest, 2 View (pa\E\lat) Ordered. EDMS 20:47 ECG WITH READING ER PHYS+CARDIAG ordered. EDMS 20:48 BLOOD CULTURES Ordered. EDMS 21:05 Financial registration complete. gjb 21:08 [facility] [place] [facility] Payment Agreement was scanned into [employer] and attached to record. gjb 21:19 Test interpretation: EKG. pc 22:27 Basic Metabolic Profile Reviewed. pc 22:27 CBC with Diff Reviewed. pc 22:27 Cardiac Injury Profile Reviewed. pc 22:27 Troponin Reviewed. pc 22:32 CT ABD & PELVIS: No Contrast Ordered. EDMS 22:32 CT Chest Without Contrast Ordered. EDMS 23:12 Call Respiratory ordered. pc 23:12 Call Respiratory complete. ml3 23:29 -Arterial Blood Gas Ordered. EDMS 23:57 -Arterial Blood Gas Reviewed. pc 23:57 Oxygen at 2L/min via NC ordered. pc 23:57 Furosemide 40 mg IVP once ordered. pc 04/03 01:07 CT ABD & PELVIS: No Contrast Reviewed. pc 01:07 CT Chest Without Contrast Reviewed. pc 01:23 BED REQUEST+ADM ordered. EDMS 01:24 Antibiotic administration: Not indicated, the patient does not have an appreciated pc infiltrate. Data reviewed: old medical records, vital signs, nurses notes, lab test results, all radiology studies and available results. Data reviewed: EKG(s). Test interpretation: LAB - all labs as ordered have been reviewed, interpreted and considered in the overall management of the clinical presentation; X-RAY - interpreted by Radiologist and personally reviewed, 1 view chest COPD, chronic interstitial changes, ?retrocrural nodes and CT recommended. Test interpretation: Arterial blood gas is normal except. pO2: 56 interpreted by Radiologist and personally reviewed, Abdomen/Pelvis CT; atrophic kidneys Chest CT; mild lymph adenopathy, no CHF. The patient has been re-examined and re-evaluated. The patient's symptoms have mildly improved after treatment. Physician consultation: Dr. Cheryle Mason was contacted at :, regarding admission, and will see patient in ED, shortly. Disposition: The historical points, examination findings, and any diagnostic results supporting the provided diagnosis, were discussed with the patient or legal guardian. The need for further work-up and/or treatment in the hospital was explained. 02:11 Admission / Observation Status ordered. EDMS 02:11 CT Head without contrast Ordered. EDMS 02:11 CONSISTENT CARBOHYDRATES ordered. EDMS 02:12 CARDIAC MARKER PANEL Ordered. EDMS 02:13 CARDIAC MARKER PANEL Ordered. EDMS 02:13 CARDIAC MARKER PANEL Ordered. EDMS 02:30 PROTHROMBIN TIME PROFILE\E\INR Ordered. EDMS 06:53 Fingerstick Blood Sugar Ordered. EDMS 09:53 CT ABD & PELVIS WITH CONTRAST Ordered. EDMS 09:53 CT Chest with contrast Ordered. EDMS EC/25 21:19 Rate is 84 beats/min. Rhythm is regular, Normal Sinus Rhythm. Left axis deviation pc noted. QRS is negative in leads II, aVF. NE interval is normal. QRS interval is prolonged at 153 msec. QT interval is normal. No Q waves. T waves are Normal. ST Segment is depressed in leads I, II, aVF, V3, V4, V5, V6, <1mm. Clinical impression: Normal Sinus Rhythm, Nonspecific ST-T changes, and RBBB. No change from previous ECG on March 29, 2016. Administered Medications: 04/03 00:10 Drug: Furosemide 40 mg [furosemide 10 mg/mL injection solution (4 mL)] Route: IVP; [facility] Site: right antecubital; Critical Care Time: 24 Critical care time: Bedside Care: 30 minutes, Consultation: 10 minutes, Family pc Intervention: 15 minutes. Total time: 55 minutes Signatures: Dispatcher [employer] EDWY Cristino Brewer MD MD pc Lopresti, Mary-Elizabeth, Slasher Tender Helper Unit ml3 Emily Peña RN RN [facility] Alana Kaiser RN RN nr1 Beck, Gabriela gjb Andrews, Steven, RN RN sa The chart was reviewed and I authenticate all verbal orders and agree with the evaluation and treatment provided.Corrections: (The following items were deleted from the chart) 04/02 23:24 23:13 ARTERIAL BLOOD GAS+LAB ordered. EDMS EDMS Attachments: 21:08 [facility] Payment Agreement gjb Chart Complete MTDD
[2016-04-05 18:00] VITALS: BP 152/70
[2016-04-05 22:00] VITALS: BP 153/69
[2016-04-06] MEDS ORDERED: HEPARIN 1,000 UNITS/ML 10ML VIAL (FOR RADIOLOGY& DIALYSIS ONLY) XX SCH
[2016-04-06] MEDS: PERCOCET 5MG/325MG TAB PO PRN (01:30)
[2016-04-06 06:00] VITALS: BP 123/60
[2016-04-06] MEDS: HEPARIN SOD (PORCINE) 5000 UNITS/ML VIAL SC SCH (06:11)
[2016-04-06 06:22] LABS: INR 1.05
[2016-04-06 06:24] LABS: BASO % 0.2 % (0.0-1.0); EOS # 0.1 K/mm3 (0.0-0.50); EOS % 1.1 % (0.0-3.0); LARGE UNSTAINED CELL # 0.1 K/mm3 (0.0-0.4); LARGE UNSTAINED CELL % 1.3 % (0.0-4.0); LYMPH # 1.3 K/mm3 (1.5-4.5); LYMPH % 13.5 % (24.0-44.0); MEAN CORPUSCULAR HEMOGLOBIN 31.7 pg (27.0-33.0); MEAN CORPUSCULAR HGB CONC 32.4 g/dl (32.0-36.5); MONO # 0.8 K/mm3 (0.0-0.8); MONO % 9.1 % (0.0-5.0); NEUTROPHILS # 6.6 K/mm3 (1.8-7.7); NEUTROPHILS % 74.8 % (36.0-66.0); PLATELET COUNT, AUTOMATED 164 k/mm3 (150-450); RED CELL DISTRIBUTION WIDTH 16.7 % (11.5-14.5); WHITE BLOOD COUNT 8.9 K/mm3 (4.0-10.0)
[2016-04-06 06:43] LABS: CALCIUM LEVEL 8.3 MG/DL (8.5-10.1); CREATININE FOR GFR 2.99 MG/DL (0.70-1.30); GLOMERULAR FILTRATION RATE 23.2 (>56); MAGNESIUM LEVEL 1.7 MG/DL (1.8-2.4); POTASSIUM SERUM 3.8 MEQ/L (3.5-5.1)
[2016-04-06] MEDS: IPRATROPIUM 0.5MG/ALBUTEROL 2.5MG INH SOL UD 3ML (DUONEB)(J7620) NEB SCH (07:36)
[2016-04-06] MEDS: FLUTICASONE HFA 110 MCG 12 GM INHALER (FLOVENT) INH SCH (07:36)
[2016-04-06] MEDS: HumaLOG INSULIN (NovoLOG) PER UNIT SC SCH ×2 (07:56→12:10)
[2016-04-06] MEDS: CINACALCET 30 MG TAB (SENSIPAR) PO SCH (08:14)
[2016-04-06] MEDS: ASPIRIN 325 MG TAB PO SCH (08:14)
[2016-04-06 08:15] VITALS: BP 123/60
[2016-04-06] MEDS: ATORVASTATIN 20 MG TAB PO SCH (08:15)
[2016-04-06] MEDS: FUROSEMIDE 20 MG TAB PO SCH (08:15)
[2016-04-06] MEDS: ISOSORBIDE MON. (IMDUR) 60 MG XR TAB PO SCH (08:15)
[2016-04-06] MEDS: OMEPRAZOLE 20 MG CAP PO SCH (08:15)
[2016-04-06] MEDS: MINOXIDIL 2.5 MG TAB PO SCH (08:15)
[2016-04-06] MEDS: amLODIPine 10 MG TAB PO SCH (08:16)
[2016-04-06] MEDS: CLOPIDOGREL 75 MG TAB PO SCH (08:16)
[2016-04-06] MEDS: CALCIUM ACETATE 667 MG GELCAP PO SCH ×2 (08:16→12:13)
[2016-04-06] MEDS: OMEGA-3 1050MG CAPSULE PO SCH (08:16)
[2016-04-06] MEDS: METOPROLOL TART 50 MG TAB PO SCH (08:16)
[2016-04-06] MEDS: LOSARTAN 50 MG TAB PO SCH (08:17)
[2016-04-06] MEDS: LANTHANUM CARBONATE 500 MG CHEW TABLET PO SCH ×2 (08:17→12:13)
[2016-04-06] MEDS: NICOTINE 21MG/24HR 1 EA TRANSDERMAL TD SCH (08:17)
[2016-04-06 09:00] VITALS: BP 156/68
[2016-04-06] MEDS ORDERED: LEVEMIR (INSULIN DETEMIR) 1 UNITS/0.01ML SC SCH (09:00)
--- NOTE | 2016-04-07 08:33 | IPN ---
DATE OF VISIT: 04/06/2016 Mr. Rivera is seen this morning on his bedside. He is lying in the bed comfortably without any dyspnea. He has been dialyzed frequently and significant amount of fluid has been removed over last few days. Last dialysis was performed yesterday with 5 liters of fluid removal. Before this, 5 liters were removed on 04/04 and 6 liters were removed on 04/03. His weight has come down to 98.7 kg today from 106.1 kg on admission. The patient is regularly dialyzed on Thursday, and Thursday schedule. He has been chronically noncompliant with fluid restrictions. PHYSICAL EXAMINATION: VITAL SIGNS: Temperature is 96.0 degrees Fahrenheit, heart rate 65 per minute and respiratory rate 19 per minute. Blood pressure 156/68 mmHg and oxygen saturation 95% on room air. HEENT/NECK: His neck veins are now mildly distended. Head is atraumatic. Ears, nose and throat are unremarkable. Neck is supple and without any thyroid enlargement. Trachea is midline. HEART: Sounds regular. LUNGS: Lungs clear to auscultation. ABDOMEN: Soft and nontender and without any palpable organomegaly. Bowel sounds are normal. EXTREMITIES : No cyanosis or clubbing. His left arm AV fistula is patent. Peripheral edema has improved significantly. NEUROLOGICALLY: He is awake, alert and oriented times three. LABORATORY DATA: Today's labs show WBC count 8.9, hemoglobin 10.9 and hematocrit 33.6. Platelets 164. Sodium 138 and potassium 3.8. BUN 23 and creatinine 2.99. PROBLEMS: 1. Shortness of breath. The patient had volume overload due to noncompliance with fluid restriction in the setting of end-stage renal disease. We have removed a total of 16 liters of fluid with hemodialysis over last three days and his volume status has improved significantly. His dyspnea has also improved. I have discussed with the patient and his multiple times during this admission and have reiterated once again today that he needs to follow his fluid restriction of 1500 per day. 2. End-stage renal disease. The patient was dialyzed yesterday and his next dialysis will be scheduled as an outpatient on April 08. 3. Hypertension. Blood pressure control has also improved as his volume status has improved. He will continue with chronic antihypertensive medications. 4. His anemia is stable. He does not need any intervention. 5. DISPOSITION: From a renal standpoint, the patient can be discharged to home today and he will be scheduled for next hemodialysis on April 08 as an outpatient.
--- NOTE | 2016-04-17 12:57 | DSES ---
DATE OF ADMISSION: 04/03/2016 DATE OF DISCHARGE: 04/06/2016 PRIMARY CARE PROVIDER: Tonny Cartwright MD EMPLOYMENT MANAGER: Enmanuel Oconnell MD DISCHARGE DIAGNOSES: 1. Fluid overload due to dietary noncompliance. 2. End stage renal disease (ESRD), on hemodialysis. 3. Systolic congestive heart failure exacerbation due to fluid overload from dietary and hemodialysis noncompliance. 4. Hypertension. 5. Diabetes. 6. Paroxysmal atrial fibrillation. 7. Peripheral neuropathy. 8. Peripheral artery disease. 9. Coronary artery disease with history of coronary artery bypass graft (CABG). 10. Pulmonary hypertension. 11. Chronic obstructive pulmonary disease (COPD). 12. History of cerebrovascular accident. 13. Gastroesophageal reflux disease (GERD). 14. Lymphadenopathy of the lung which needs to be followed up. 15. Sleep disorder, breathing with nocturnal desaturation, never had a sleep study. 16. 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 DISCHARGE MEDICATIONS: - albuterol two puff inhalation every 4 hours as needed for shortness of breath - amlodipine 10 mg daily - aspirin 325 mg daily - atorvastatin 40 mg daily - calcium acetate four tablets with each meal - Sensipar 30 mg by mouth daily - clopidogrel 75 mg by mouth daily - fluticasone MDI two puff inhalation twice a day - Lasix 80 mg by mouth daily - Levemir insulin 12 units daily - Lispro insulin as per sliding scale - isosorbide mononitrate 60 mg by mouth daily - Fosrenol 1000 mg by mouth with each meal - losartan potassium 100 mg by mouth daily - metoprolol 50 mg twice a day - minoxidil 5 mg twice a day - omega 3 polyunsaturated fatty acid two capsules by mouth daily - omeprazole 40 mg by mouth daily - vitamin D 2000 units by mouth every 2 days HOSPITAL COURSE: This is a 55-year-old male with end stage renal disease (ESRD) who is very noncompliant with his diet and fluid restrictions. He presented to the hospital with acute onset shortness of breath. Patient was found to have gained about 30 pounds in 1 month. Patient was urgently hemodialyzed back to back for four consecutive days with removal of 16 liters of fluid with significant improvement in his breathing status and overall fluid status. His weight significantly reduced from 106 to 98 kg. His shortness of breath improved. On the day of discharge, he was asymptomatic, functionally at his baseline, and was discharged home in a stable condition. PHYSICAL EXAMINATION: VITAL SIGNS: Temperature 96, pulse 65, respiratory rate 19, blood pressure 156/68, pulse oximetry 95% in room air. GENERAL: Patient awake, alert, oriented times three, sitting up in bed in no acute distress. HEENT: Normocephalic, atraumatic. Moist mucous membranes. Anicteric eyes. CHEST: Clear to auscultation. CARDIOVASCULAR: S1, S2, regular. ABDOMEN: Soft, nontender. Bowel sounds present. EXTREMITIES: No edema. LABORATORY DATA: WBC 8.9, hemoglobin 10.9, platelets 164. Sodium 138, potassium 3.8, chloride 98, bicarbonate 30, BUN 23, creatinine 2.9, glucose 88, calcium 8.3, magnesium 1.7. Blood cultures no growth. CT chest showed mediastinal paratracheal subcarinal and retrocrural lymphadenopathy. There was no axillary or hilar lymphadenopathy. There were no lung masses or nodules. No infiltrates or effusions. There was a single density in the T11 vertebral body. Metastasis versus bone island. CT abdomen and pelvis showed cholelithiasis, hepatomegaly, renal cortical atrophy with numerous cysts, no evidence of mass or hydronephrosis. hypertrophied lymph nodes in the inguinal regions bilaterally. Venous collaterals in the retroperitoneum and paravertebral region with multifocal venous calcification. 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 This is a chronic finding. DISPOSITION: Patient is discharged home in a stable condition. DISCHARGE INSTRUCTIONS: Patient to followup with primary care provider in 1 week. Patient to followup with routine hemodialysis as per outpatient schedule. Fluid restriction 1.5 liters per day. Diet 2 gram sodium diet and carbohydrate consistent diet. Activity as tolerated.
== END 2016-04-06 12:54 | disposition home health service (06) | DRG 291 ==
LOC: M ED 20:17 → M ED INP 04-03 01:58 → M PCU 04-03 13:28 → M MSPAV 04-04 17:55
PROVIDERS: ADMIT Hospitalist; ATTEND Internal Medicine Nephrology
PROC: 5A1D00Z (ICD-10-PCS; principal; 2016-04-05)
DX: I50.21 Acute systolic (congestive) heart failure (principal); J96.21 Acute and chronic respiratory failure with hypoxia; N18.6 End stage renal disease; I87.1 Compression of vein; J44.1 Chronic obstructive pulmonary disease with (acute) exacerbation; I12.0 Hypertensive chronic kidney disease with stage 5 chronic kidney disease or end stage renal disease; E87.79 Other fluid overload; Z66 Do not resuscitate; E11.9 Type 2 diabetes mellitus without complications; K21.9 Gastro-esophageal reflux disease without esophagitis; I25.10 Atherosclerotic heart disease of native coronary artery without angina pectoris; I48.0 Paroxysmal atrial fibrillation; R59.0 Localized enlarged lymph nodes; G47.9 Sleep disorder, unspecified; I27.2 Other secondary pulmonary hypertension; D63.1 Anemia in chronic kidney disease; E87.5 Hyperkalemia; G62.9 Polyneuropathy, unspecified; I87.8 Other specified disorders of veins; F17.210 Nicotine dependence, cigarettes, uncomplicated; I73.9 Peripheral vascular disease, unspecified; E83.39 Other disorders of phosphorus metabolism; Z79.4 Long term (current) use of insulin; Z91.15 Patient's noncompliance with renal dialysis; Z91.11 Patient's noncompliance with dietary regimen; Z99.2 Dependence on renal dialysis; Z95.1 Presence of aortocoronary bypass graft; Z79.51 Long term (current) use of inhaled steroids; Z79.899 Other long term (current) drug therapy; Z86.73 Personal history of transient ischemic attack (TIA), and cerebral infarction without residual deficits; Z89.421 Acquired absence of other right toe(s); Z91.048 Other nonmedicinal substance allergy status; Z82.49 Family history of ischemic heart disease and other diseases of the circulatory system; Z83.3 Family history of diabetes mellitus; Z80.1 Family history of malignant neoplasm of trachea, bronchus and lung; Z83.6 Family history of other diseases of the respiratory system; Z91.018 Allergy to other foods

== ENCOUNTER 2016-04-15 23:47 | Emergency (ER) | payer MEDICARE, MEDICAID ==
[~2016-04-15 23:47] MED LIST changes: +LOVA1CAP17 PO
--- NOTE | 2016-04-16 01:56 | EDDOCDS ---
Nurse's Notes [facility] Name: Antonio Rivera Age: 55 yrs Sex: Male : 1960 Arrival Date: 04/15/2016 Time: 23:47 Bed 11 Private MD: URBANO WOODWARD Diagnosis: Chronic obstructive pulmonary disease, unspecified;End stage renal disease Presentation: 04/15 23:56 Presenting complaint: EMS states: per EMS pt has had SOB since 0530 this AM, pt states tm5 that he feels better with Oxygen on, Sinus on Monitor, 166/64 HR 70, RR 12-14, per EMS faint wheezes throughout. Adult Sepsis Screening: The patient does not have new or worsening altered mentation. Patient's respiratory rate is less than 22. Systolic blood pressure is greater than 100. Patient has a qSOFA score of 0- Negative Sepsis Screen. Suicide/Homicide risk assessment- the patient denies having any suicidal and/or homicidal ideations and does not present with any other emotional, behavioral or mental health complaints. 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 Transition of care: patient was not received from another setting of care. 23:56 Acuity: [place] Level 3 tm5 23:56 Method Of Arrival: Ambulance tm5 Triage Assessment: 04/16 00:01 General: Appears in no apparent distress, Behavior is appropriate for age, cooperative. tm5 Pain: Denies pain. HIV screening NA for this visit Offered previously. The patient is triaged at the bedside. See Assessment in Nurses Notes section of ED record. Neurological: Level of Consciousness is awake, alert, Oriented to person, place, time. Cardiovascular: Rhythm is sinus rhythm No ectopy. Respiratory: Onset: The symptoms/episode began/occurred yesterday, Airway is patent Respiratory effort is even, unlabored, Respiratory pattern is regular, symmetrical, Breath sounds are diminished bilaterally. Breath sounds with wheezes expiratory in left posterior lower lobe, right posterior middle lobe and right posterior lower lobe Reports shortness of breath on exertion. GI: No deficits noted. : No deficits noted. Derm: Skin is pink, warm & dry. Historical: - Allergies: mushrooms; Tape; - Home Meds: 1. albuterol sulfate 90 mcg/actuation Inhl HFAA 2 puffs every 4-6 hours 2. amlodipine 10 mg Oral tab 1 tab once daily 3. aspirin 325 mg Oral tab 1 tab once daily 4. atorvastatin 40 mg oral tab 1 tab once daily 5. calcium acetate 667 mg oral cap 4 caps 3 times per day 6. clopidogrel 75 mg oral tab 1 tab once daily 7. Flovent 110 mcg/actuation Inhl aero 2 puffs 2 times per day 8. furosemide 20 mg Oral tab 4 tab once daily 9. Humalog Pen sliding scale Sub-Q three times a day 10. isosorbide mononitrate 60 mg Oral Tb24 1 tab once daily 11. Levemir FlexTouch 100 unit/mL (3 mL) subcutaneous inpn 12 unit daily 12. Lopressor 50 mg Oral tab 2 times per day 13. losartan 100 mg oral tab 1 tab once daily 14. minoxidil 2.5 mg Oral tab 2 tabs 2 times per day 15. Temple 3 Fish Oil 900-1,400 mg oral cpDR twice a day 16. omeprazole 40 mg Oral cpDR 1 cap once daily 17. Sensipar 30 mg oral tab 1 tab once daily 18. Vitamin D Oral 2000 unit daily 19. Vitamin D3 4,000 unit oral cap daily - PMHx: Asthma; CHF; COPD; Diabetes - IDDM: controlled; GERD; Heart Disease; Renal Failure with Dialysis; Stroke; - PSHx: Cardiac stents; CABG; Adenoidectomy; Tonsillectomy; toe amputated; Appendectomy; - The history from nurses notes was reviewed: and I agree with what is documented. - Social history: Smoking status: Patient uses tobacco products, current every day smoker. No barriers to communication noted, The patient speaks fluent Croatian. - Family history: Not pertinent. - : The pt / caregiver states he / she is on anticoagulants: Plavix. Home medication list is obtained from [employer] import data. - Hospitalizations: : The patient was recently seen at [facility], and discharged 1 month(s) ago, for similar complaints. - Exposure Risk Screening:: None identified. - Immunization history:: All immunizations up-to-date. - Social history:: the patient smokes cigarettes the patient drinks alcohol. Screenin:03 Screening information is obtained from the patient. Fall risk: No risks identified. tm5 Assistance ADL's: requires no assistance with activities of daily living. Abuse/DV Screen: The patient / caregiver reports he/she is: not in a situation that causes fear, pain or injury. Nutritional screening: No deficits noted. Advance Directives: Currently, there is a health care proxy, Yee (). There is an active DNR order but there is no copy available at this time. home support is adequate. Assessment: 00:03 General: see triage assessment . Cardiovascular: Rhythm is sinus rhythm No ectopy. tm5 00:09 General: left the Oxygen off to monitor room air O2 sat. tm5 01:08 General: Pt refused to have ABG drawn, aware . tm5 01:50 Reassessment: Patient appears in no apparent distress at this time. Patient states tm5 feeling better. Patient states symptoms have improved. Vital Signs: 04/15 23:58 BP 152 / 71; Pulse 93; Resp 20; Temp 99.3(TE); Pulse Ox 95% on R/A; Weight 106.14 kg jmv (R); Height 6 ft. 3 in. (190.50 cm) (R); Pain 5/10; 04/16 00:03 Pulse Ox 95% on R/A; tm5 00:11 BP 155 / 71 (auto/); tm5 00:12 Pulse 92 MON; Resp 18 S; Pulse Ox 93% on R/A; tm5 00:26 BP 152 / 72 (auto/); tm5 00:27 Pulse 92 MON; Pulse Ox 93% ; tm5 00:41 BP 148 / 59 (auto/); tm5 00:42 Pulse 90 MON; Pulse Ox 94% ; tm5 00:56 BP 142 / 63 (auto/); tm5 00:57 Pulse 92 MON; Resp 20 S; Pulse Ox 95% on R/A; Pain 0/10; tm5 01:11 BP 156 / 67 (auto/); tm5 01:12 Pulse 90 MON; Resp 20 S; Pulse Ox 94% on R/A; Pain 0/10; tm5 01:50 BP 145 / 65; Pulse 74; Resp 20; Temp 97.8(O); Pulse Ox 96% on R/A; Pain 0/10; tm5 04/15 23:58 Body Mass Index 29.25 (106.14 kg, 190.50 cm) jmv 00:03 pt very talkative on rrom air & 02 sat remains in high 90's tm5 Vitals: 00:01 Log In Time N/A - ambulance arrival. tm5 ED Course: 07 23:49 Patient visited by Zan Lobato PCA. mdr 23:49 URBANO WOODWARD is Private Physician. mdr 23:49 Patient moved to Waiting mdr 23:50 Patient moved to 11 mdr 23:56 Patient visited by Philly Pitts,RADHA. tm5 23:58 Triage Initiated tm5 04/16 00:00 Patient visited by Edgard Johnson PCA. jmv 00:00 Pt greeted and oriented to ED. Patient advised of names of staff involved in care, jmv location of call curiel, wait times and NPO status. Accompanied by Significant Other, Patient has correct armband on for positive identification. Placed in gown. Bed in low position. Call light in reach. Side rails up X2. front desk monitor on. Pulse ox on. NIBP on. 00:01 Family accompanied patient. tm5 00:03 Awaiting ED physician evaluation. tm5 00:03 The patient / caregiver is instructed regarding the plan of care and ED course. tm5 00:03 O2 via nasal cannula \T\ 2L/min. tm5 00:09 Philly Pitts RN is Primary Nurse. tm5 00:24 Cristino Brewer MD is Attending Physician. pc 00:31 Patient visited by Philly Pitts RN. tm5 00:31 ED physician to see patient. tm5 00:32 Patient visited by Cristino Brewer MD. pc 00:48 Patient moved to Radiology gómez 00:55 Patient moved to radiology. tm5 00:57 Patient moved back from radiology. tm5 01:06 Patient moved to 11 gómez 01:25 Patient visited by Philly Pitts RN. tm5 01:36 Enmanuel Oconnell is Referral Physician. pc 01:50 Patient visited by Philly Pitts RN. tm5 01:50 No IV's were initiated during this patient's visit. No procedures done that require tm5 assistance. RT: 01:10 ABG's Patient Refused ABG. lf2 Order Results: There are currently no results for this order. Outcome: 01:37 Discharge ordered by Provider. pc 01:50 Discharge Assessment: Patient awake, alert and oriented x 3. No cognitive and/or tm5 functional deficits noted. Patient verbalized understanding of disposition instructions. patient administered narcotics - no. The following High Risk Discharge criteria are identified: None. Discharged to home ambulatory, with significant other. Condition: good Condition: stable Condition: improved. No special radiology studies were completed. Property :Personal belongings accompany Pt. 01:56 Patient left the ED. tm5 Signatures: Cristino Brewer MD MD pc Bartlett, Floyd fab Rick, Mitchell, INSTRUCTOR MODELING INSTRUCTOR MODELING Lu Fernandez,RT RT lf2 Edgard Johnson, INSTRUCTOR MODELING INSTRUCTOR MODELING Philly Sharp,RN RN tm5 MTDD
--- NOTE | 2016-04-16 01:56 | EDDOCDS ---
Physician Documentation [facility] Name: Antonio Rivera Age: 55 yrs Sex: Male : 1960 Arrival Date: 04/15/2016 Time: 23:47 Bed 11 Private MD: URBANO WOODWARD Disposition: 04/16 01:36 Critical Care: Critical care not applicable. pc Disposition: 04/16/16 01:37 Discharged to Home/Self Care. Impression: Chronic obstructive pulmonary disease, unspecified, End stage renal disease. - Condition is Stable. - Discharge Instructions: End-Stage Kidney Disease, Chronic Obstructive Pulmonary Disease. - Medication Reconciliation, Local Pharmacy Hours form. - Follow up: Enmanuel Oconnell; When: As previously arranged; Reason: Recheck today's complaints, Continuance of care. - Problem is an acute exacerbation. - Symptoms are resolved. HPI: 00:41 This 55 yrs old Male presents to ER via Ambulance with complaints of pc Breathing Difficulty. 00:41 The history is obtained from the patient. The patient presents with shortness of pc breath, with a prior history of COPD. The patient has shortness of breath He says he awoke this morning very SOB at 5:30am. He went to dialysis and had 8000mL removed, with his usual being 7000mL. He had to receive oxygen while on dialysis but was okay to be discharged home. He says he still feels SOB but has not been using his nebulizers. He denies any chest pain, fevers or chills.. The patient has experienced similar episodes in the past, chronically. The patient has been recently seen by Dr. Oconnell. Historical: - Allergies: mushrooms; Tape; - Home Meds: 1. albuterol sulfate 90 mcg/actuation Inhl HFAA 2 puffs every 4-6 hours 2. amlodipine 10 mg Oral tab 1 tab once daily 3. aspirin 325 mg Oral tab 1 tab once daily 4. atorvastatin 40 mg oral tab 1 tab once daily 5. calcium acetate 667 mg oral cap 4 caps 3 times per day 6. clopidogrel 75 mg oral tab 1 tab once daily 7. Flovent 110 mcg/actuation Inhl aero 2 puffs 2 times per day 8. furosemide 20 mg Oral tab 4 tab once daily 9. Humalog Pen sliding scale Sub-Q three times a day 10. isosorbide mononitrate 60 mg Oral Tb24 1 tab once daily 11. Levemir FlexTouch 100 unit/mL (3 mL) subcutaneous inpn 12 unit daily 12. Lopressor 50 mg Oral tab 2 times per day 13. losartan 100 mg oral tab 1 tab once daily 14. minoxidil 2.5 mg Oral tab 2 tabs 2 times per day 15. Mize 3 Fish Oil 900-1,400 mg oral cpDR twice a day 16. omeprazole 40 mg Oral cpDR 1 cap once daily 17. Sensipar 30 mg oral tab 1 tab once daily 18. Vitamin D Oral 2000 unit daily 19. Vitamin D3 4,000 unit oral cap daily - PMHx: Asthma; CHF; COPD; Diabetes - IDDM: controlled; GERD; Heart Disease; Renal Failure with Dialysis; Stroke; - PSHx: Cardiac stents; CABG; Adenoidectomy; Tonsillectomy; toe amputated; Appendectomy; - The history from nurses notes was reviewed: and I agree with what is documented. - Social history: Smoking status: Patient uses tobacco products, current every day smoker. No barriers to communication noted, The patient speaks fluent Pashto. - Family history: Not pertinent. - : The pt / caregiver states he / she is on anticoagulants: Plavix. Home medication list is obtained from [employer] import data. - Hospitalizations: : The patient was recently seen at [facility], and discharged 1 month(s) ago, for similar complaints. - Exposure Risk Screening:: None identified. - Immunization history:: All immunizations up-to-date. - Social history:: the patient smokes cigarettes the patient drinks alcohol. ROS: 00:41 All systems are negative except as listed. The gastrointestinal and genitourinary pc components are also addressed in the HPI. Exam: 00:41 General Appearance: no acute distress, alert, laying at 15 degree incline, on room air, pc with a PO of 96%, hands behind head. 00:41 EENT: normal eye inspection, ears, nose and throat normal, pharynx normal, mucous membranes moist 00:41 Neck: normal inspection. 00:41 Respiratory: no respiratory distress, breath sounds normal, no pleuritic chest pain, speaks in full sentences. 00:41 Cardiovascular: normal heart rate, normal rhythm, no jugular venous distension appreciated, no murmurs, no gallop, no friction rub. 00:41 Abdomen: non-tender, non-distended, no organomegaly. 00:41 Skin: normal color, warm, dry. 00:41 Extremities: non-tender, normal range of motion of all joints, pedal edema is present and is 1 +. 00:41 Neuro: alert, oriented to person, place and time, cranial nerves normal as tested, no motor deficits, no sensory deficits. 00:41 Psych: normal mood. Vital Signs: 04/15 23:58 BP 152 / 71; Pulse 93; Resp 20; Temp 99.3(TE); Pulse Ox 95% on R/A; Weight 106.14 kg / jmv 234 lbs (R); Height 6 ft. 3 in. (190.50 cm) (R); Pain 5/10; 04/16 00:03 Pulse Ox 95% on R/A; tm5 00:11 BP 155 / 71 (auto/); tm5 00:12 Pulse 92 MON; Resp 18 S; Pulse Ox 93% on R/A; tm5 00:26 BP 152 / 72 (auto/); tm5 00:27 Pulse 92 MON; Pulse Ox 93% ; tm5 00:41 BP 148 / 59 (auto/); tm5 00:42 Pulse 90 MON; Pulse Ox 94% ; tm5 00:56 BP 142 / 63 (auto/); tm5 00:57 Pulse 92 MON; Resp 20 S; Pulse Ox 95% on R/A; Pain 0/10; tm5 01:11 BP 156 / 67 (auto/); tm5 01:12 Pulse 90 MON; Resp 20 S; Pulse Ox 94% on R/A; Pain 0/10; tm5 01:50 BP 145 / 65; Pulse 74; Resp 20; Temp 97.8(O); Pulse Ox 96% on R/A; Pain 0/10; tm5 04/15 23:58 Body Mass Index 29.25 (106.14 kg, 190.50 cm) jmv 00:03 pt very talkative on rrom air & 02 sat remains in high 90's tm5 MDM: 00:40 Call Respiratory ordered. pc 00:41 Differential diagnosis: Anxiety Reaction Chronic Obstructive Pulmonary Disease ESRD. pc Plan: Lab, CXR. 00:42 Call Respiratory complete. mdr 00:42 Chest, 2 View (pa\E\lat) Ordered. EDMS 00:56 Financial registration complete. hs2 01:36 Data reviewed: old medical records, vital signs, nurses notes, all radiology studies pc and available results. Test interpretation: X-RAY - interpreted by me, 2 view chest, no acute disease. The patient has been re-examined and re-evaluated. The clinical presentation did not require any ED treatment or interventions. Disposition: The historical points, examination findings, and any diagnostic results supporting the provided diagnosis, were discussed with the patient or legal guardian. The need for outpatient follow up with the provider listed on their discharge instructions was discussed. They were encouraged to return to [facility], or the nearest ED, if symptoms worsen/persist, or for any other questions/concerns. Signatures: Dispatcher [employer] [facility] Cristino Brewer MD MD pc Rick, Mitchell, LABORER EGG PRODUCING FARM LABORER EGG PRODUCING FARM Natalie Almanza, Reg Reg hs2 Philly Pitts,RN RN tm5 The chart was reviewed and I authenticate all verbal orders and agree with the evaluation and treatment provided.Corrections: (The following items were deleted from the chart) 01:28 00:42 ARTERIAL BLOOD GAS+LAB ordered. [facility] MTDD
--- NOTE | 2016-04-16 08:41 | REP ---
Chest x-ray: Two views. History: Cough. Comparison chest x-ray April 02, 2016. Findings: The patient is status post prior median sternotomy. EKG electrodes are seen. There is right paratracheal mediastinal widening which is consistent with mediastinal lymphadenopathy unchanged. Cardiomegaly is again observed. Pulmonary vasculature is cephalized and there are a few Misha B lines at the bases. There is slight blunting of the right lateral pleural angle. Lateral film shows fissural thickening. Impression: CHF pattern. Mediastinal lymphadenopathy. No focal infiltrate. Signed by Yeison Krishnan MD 04/16/2016 02:59 P
--- NOTE | 2016-04-18 02:56 | EDDOCDS ---
Physician Documentation [facility] Name: Antonio Rivera Age: 55 yrs Sex: Male : 1960 Arrival Date: 04/15/2016 Time: 23:47 Bed 11 Private MD: URBANO WOODWARD Disposition: 04/16 01:36 Critical Care: Critical care not applicable. pc Disposition: 04/16/16 01:37 Discharged to Home/Self Care. Impression: Chronic obstructive pulmonary disease, unspecified, End stage renal disease. - Condition is Stable. - Discharge Instructions: End-Stage Kidney Disease, Chronic Obstructive Pulmonary Disease. - Medication Reconciliation, Local Pharmacy Hours form. - Follow up: Enmanuel Oconnell; When: As previously arranged; Reason: Recheck today's complaints, Continuance of care. - Problem is an acute exacerbation. - Symptoms are resolved. HPI: 00:41 This 55 yrs old Male presents to ER via Ambulance with complaints of pc Breathing Difficulty. 00:41 The history is obtained from the patient. The patient presents with shortness of pc breath, with a prior history of COPD. The patient has shortness of breath He says he awoke this morning very SOB at 5:30am. He went to dialysis and had 8000mL removed, with his usual being 7000mL. He had to receive oxygen while on dialysis but was okay to be discharged home. He says he still feels SOB but has not been using his nebulizers. He denies any chest pain, fevers or chills.. The patient has experienced similar episodes in the past, chronically. The patient has been recently seen by Dr. Oconnell. Historical: - Allergies: mushrooms; Tape; - Home Meds: 1. albuterol sulfate 90 mcg/actuation Inhl HFAA 2 puffs every 4-6 hours 2. amlodipine 10 mg Oral tab 1 tab once daily 3. aspirin 325 mg Oral tab 1 tab once daily 4. atorvastatin 40 mg oral tab 1 tab once daily 5. calcium acetate 667 mg oral cap 4 caps 3 times per day 6. clopidogrel 75 mg oral tab 1 tab once daily 7. Flovent 110 mcg/actuation Inhl aero 2 puffs 2 times per day 8. furosemide 20 mg Oral tab 4 tab once daily 9. Humalog Pen sliding scale Sub-Q three times a day 10. isosorbide mononitrate 60 mg Oral Tb24 1 tab once daily 11. Levemir FlexTouch 100 unit/mL (3 mL) subcutaneous inpn 12 unit daily 12. Lopressor 50 mg Oral tab 2 times per day 13. losartan 100 mg oral tab 1 tab once daily 14. minoxidil 2.5 mg Oral tab 2 tabs 2 times per day 15. [place] 3 Fish Oil 900-1,400 mg oral cpDR twice a day 16. omeprazole 40 mg Oral cpDR 1 cap once daily 17. Sensipar 30 mg oral tab 1 tab once daily 18. Vitamin D Oral 2000 unit daily 19. Vitamin D3 4,000 unit oral cap daily - PMHx: Asthma; CHF; COPD; Diabetes - IDDM: controlled; GERD; Heart Disease; Renal Failure with Dialysis; Stroke; - PSHx: Cardiac stents; CABG; Adenoidectomy; Tonsillectomy; toe amputated; Appendectomy; - The history from nurses notes was reviewed: and I agree with what is documented. - Social history: Smoking status: Patient uses tobacco products, current every day smoker. No barriers to communication noted, The patient speaks fluent Thai. - Family history: Not pertinent. - : The pt / caregiver states he / she is on anticoagulants: Plavix. Home medication list is obtained from [employer] import data. - Hospitalizations: : The patient was recently seen at [facility], and discharged 1 month(s) ago, for similar complaints. - Exposure Risk Screening:: None identified. - Immunization history:: All immunizations up-to-date. - Social history:: the patient smokes cigarettes the patient drinks alcohol. ROS: 00:41 All systems are negative except as listed. The gastrointestinal and genitourinary pc components are also addressed in the HPI. Exam: 00:41 General Appearance: no acute distress, alert, laying at 15 degree incline, on room air, pc with a PO of 96%, hands behind head. 00:41 EENT: normal eye inspection, ears, nose and throat normal, pharynx normal, mucous membranes moist 00:41 Neck: normal inspection. 00:41 Respiratory: no respiratory distress, breath sounds normal, no pleuritic chest pain, speaks in full sentences. 00:41 Cardiovascular: normal heart rate, normal rhythm, no jugular venous distension appreciated, no murmurs, no gallop, no friction rub. 00:41 Abdomen: non-tender, non-distended, no organomegaly. 00:41 Skin: normal color, warm, dry. 00:41 Extremities: non-tender, normal range of motion of all joints, pedal edema is present and is 1 +. 00:41 Neuro: alert, oriented to person, place and time, cranial nerves normal as tested, no motor deficits, no sensory deficits. 00:41 Psych: normal mood. Vital Signs: 04/15 23:58 BP 152 / 71; Pulse 93; Resp 20; Temp 99.3(TE); Pulse Ox 95% on R/A; Weight 106.14 kg / jmv 234 lbs (R); Height 6 ft. 3 in. (190.50 cm) (R); Pain 5/10; 04/16 00:03 Pulse Ox 95% on R/A; tm5 00:11 BP 155 / 71 (auto/); tm5 00:12 Pulse 92 MON; Resp 18 S; Pulse Ox 93% on R/A; tm5 00:26 BP 152 / 72 (auto/); tm5 00:27 Pulse 92 MON; Pulse Ox 93% ; tm5 00:41 BP 148 / 59 (auto/); tm5 00:42 Pulse 90 MON; Pulse Ox 94% ; tm5 00:56 BP 142 / 63 (auto/); tm5 00:57 Pulse 92 MON; Resp 20 S; Pulse Ox 95% on R/A; Pain 0/10; tm5 01:11 BP 156 / 67 (auto/); tm5 01:12 Pulse 90 MON; Resp 20 S; Pulse Ox 94% on R/A; Pain 0/10; tm5 01:50 BP 145 / 65; Pulse 74; Resp 20; Temp 97.8(O); Pulse Ox 96% on R/A; Pain 0/10; tm5 04/15 23:58 Body Mass Index 29.25 (106.14 kg, 190.50 cm) jmv 00:03 pt very talkative on rrom air & 02 sat remains in high 90's tm5 MDM: 00:40 Call Respiratory ordered. pc 00:41 Differential diagnosis: Anxiety Reaction Chronic Obstructive Pulmonary Disease ESRD. pc Plan: Lab, CXR. 00:42 Call Respiratory complete. mdr 00:42 Chest, 2 View (pa\E\lat) Ordered. EDMS 00:56 Financial registration complete. hs2 01:36 Data reviewed: old medical records, vital signs, nurses notes, all radiology studies pc and available results. Test interpretation: X-RAY - interpreted by me, 2 view chest, no acute disease. The patient has been re-examined and re-evaluated. The clinical presentation did not require any ED treatment or interventions. Disposition: The historical points, examination findings, and any diagnostic results supporting the provided diagnosis, were discussed with the patient or legal guardian. The need for outpatient follow up with the provider listed on their discharge instructions was discussed. They were encouraged to return to [facility], or the nearest ED, if symptoms worsen/persist, or for any other questions/concerns. 03:23 [facility] Payment Agreement was scanned into [employer] and attached to record. hs2 Signatures: Dispatcher [facility] Cristino Brewer MD MD pc Rick, Mitchell, FURNITURE FABRICATOR FURNITURE FABRICATOR Natalie Almanza, Reg Reg hs2 Philly Pitts,RN RN tm5 The chart was reviewed and I authenticate all verbal orders and agree with the evaluation and treatment provided.Corrections: (The following items were deleted from the chart) 01:28 00:42 ARTERIAL BLOOD GAS+LAB ordered. [facility]NE Attachments: 03:23 [facility] Payment Agreement hs2 Chart Complete MTDD
--- NOTE | 2016-04-18 02:56 | EDDOCDS ---
Nurse's Notes [facility] Name: Antoino Rivera Age: 55 yrs Sex: Male : 1960 Arrival Date: 04/15/2016 Time: 23:47 Bed 11 Private MD: URBANO WOODWARD Diagnosis: Chronic obstructive pulmonary disease, unspecified;End stage renal disease Presentation: 04/15 23:56 Presenting complaint: EMS states: per EMS pt has had SOB since 0530 this AM, pt states tm5 that he feels better with Oxygen on, Sinus on Monitor, 166/64 HR 70, RR 12-14, per EMS faint wheezes throughout. Adult Sepsis Screening: The patient does not have new or worsening altered mentation. Patient's respiratory rate is less than 22. Systolic blood pressure is greater than 100. Patient has a qSOFA score of 0- Negative Sepsis Screen. Suicide/Homicide risk assessment- the patient denies having any suicidal and/or homicidal ideations and does not present with any other emotional, behavioral or mental health complaints. Status: Patient is not a chief optometry service or dependent. Transition of care: patient was not received from another setting of care. 23:56 Acuity: HCAGO Level 3 tm5 23:56 Method Of Arrival: Ambulance tm5 Triage Assessment: 04/16 00:01 General: Appears in no apparent distress, Behavior is appropriate for age, cooperative. tm5 Pain: Denies pain. HIV screening NA for this visit Offered previously. The patient is triaged at the bedside. See Assessment in Nurses Notes section of ED record. Neurological: Level of Consciousness is awake, alert, Oriented to person, place, time. Cardiovascular: Rhythm is sinus rhythm No ectopy. Respiratory: Onset: The symptoms/episode began/occurred yesterday, Airway is patent Respiratory effort is even, unlabored, Respiratory pattern is regular, symmetrical, Breath sounds are diminished bilaterally. Breath sounds with wheezes expiratory in left posterior lower lobe, right posterior middle lobe and right posterior lower lobe Reports shortness of breath on exertion. GI: No deficits noted. : No deficits noted. Derm: Skin is pink, warm & dry. Historical: - Allergies: mushrooms; Tape; - Home Meds: 1. albuterol sulfate 90 mcg/actuation Inhl HFAA 2 puffs every 4-6 hours 2. amlodipine 10 mg Oral tab 1 tab once daily 3. aspirin 325 mg Oral tab 1 tab once daily 4. atorvastatin 40 mg oral tab 1 tab once daily 5. calcium acetate 667 mg oral cap 4 caps 3 times per day 6. clopidogrel 75 mg oral tab 1 tab once daily 7. Flovent 110 mcg/actuation Inhl aero 2 puffs 2 times per day 8. furosemide 20 mg Oral tab 4 tab once daily 9. Humalog Pen sliding scale Sub-Q three times a day 10. isosorbide mononitrate 60 mg Oral Tb24 1 tab once daily 11. Levemir FlexTouch 100 unit/mL (3 mL) subcutaneous inpn 12 unit daily 12. Lopressor 50 mg Oral tab 2 times per day 13. losartan 100 mg oral tab 1 tab once daily 14. minoxidil 2.5 mg Oral tab 2 tabs 2 times per day 15. [place] 3 Fish Oil 900-1,400 mg oral cpDR twice a day 16. omeprazole 40 mg Oral cpDR 1 cap once daily 17. Sensipar 30 mg oral tab 1 tab once daily 18. Vitamin D Oral 2000 unit daily 19. Vitamin D3 4,000 unit oral cap daily - PMHx: Asthma; CHF; COPD; Diabetes - IDDM: controlled; GERD; Heart Disease; Renal Failure with Dialysis; Stroke; - PSHx: Cardiac stents; CABG; Adenoidectomy; Tonsillectomy; toe amputated; Appendectomy; - The history from nurses notes was reviewed: and I agree with what is documented. - Social history: Smoking status: Patient uses tobacco products, current every day smoker. No barriers to communication noted, The patient speaks fluent Urdu. - Family history: Not pertinent. - : The pt / caregiver states he / she is on anticoagulants: Plavix. Home medication list is obtained from [employer] import data. - Hospitalizations: : The patient was recently seen at [facility], and discharged 1 month(s) ago, for similar complaints. - Exposure Risk Screening:: None identified. - Immunization history:: All immunizations up-to-date. - Social history:: the patient smokes cigarettes the patient drinks alcohol. Screenin:03 Screening information is obtained from the patient. Fall risk: No risks identified. tm5 Assistance ADL's: requires no assistance with activities of daily living. Abuse/DV Screen: The patient / caregiver reports he/she is: not in a situation that causes fear, pain or injury. Nutritional screening: No deficits noted. Advance Directives: Currently, there is a health care proxy, Yee (). There is an active DNR order but there is no copy available at this time. home support is adequate. Assessment: 00:03 General: see triage assessment . Cardiovascular: Rhythm is sinus rhythm No ectopy. tm5 00:09 General: left the Oxygen off to monitor room air O2 sat. tm5 01:08 General: Pt refused to have ABG drawn, aware . tm5 01:50 Reassessment: Patient appears in no apparent distress at this time. Patient states tm5 feeling better. Patient states symptoms have improved. Vital Signs: 04/15 23:58 BP 152 / 71; Pulse 93; Resp 20; Temp 99.3(TE); Pulse Ox 95% on R/A; Weight 106.14 kg jmv (R); Height 6 ft. 3 in. (190.50 cm) (R); Pain 5/10; 04/16 00:03 Pulse Ox 95% on R/A; tm5 00:11 BP 155 / 71 (auto/); tm5 00:12 Pulse 92 MON; Resp 18 S; Pulse Ox 93% on R/A; tm5 00:26 BP 152 / 72 (auto/); tm5 00:27 Pulse 92 MON; Pulse Ox 93% ; tm5 00:41 BP 148 / 59 (auto/); tm5 00:42 Pulse 90 MON; Pulse Ox 94% ; tm5 00:56 BP 142 / 63 (auto/); tm5 00:57 Pulse 92 MON; Resp 20 S; Pulse Ox 95% on R/A; Pain 0/10; tm5 01:11 BP 156 / 67 (auto/); tm5 01:12 Pulse 90 MON; Resp 20 S; Pulse Ox 94% on R/A; Pain 0/10; tm5 01:50 BP 145 / 65; Pulse 74; Resp 20; Temp 97.8(O); Pulse Ox 96% on R/A; Pain 0/10; tm5 04/15 23:58 Body Mass Index 29.25 (106.14 kg, 190.50 cm) jmv 00:03 pt very talkative on rrom air & 02 sat remains in high 90's tm5 Vitals: 00:01 Log In Time N/A - ambulance arrival. tm5 ED Course: 04/15 23:49 Patient visited by Zan Lobato PCA. mdr 23:49 URBANO WOODWARD is Private Physician. mdr 23:49 Patient moved to Waiting mdr 23:50 Patient moved to 11 mdr 23:56 Patient visited by Philly Pitts,RADHA. tm5 23:58 Triage Initiated tm5 04/16 00:00 Patient visited by Edgard Johnson PCA. jmv 00:00 Pt greeted and oriented to ED. Patient advised of names of staff involved in care, jmv location of call curiel, wait times and NPO status. Accompanied by Significant Other, Patient has correct armband on for positive identification. Placed in gown. Bed in low position. Call light in reach. Side rails up X2. electronic device monitor on. Pulse ox on. NIBP on. 00:01 Family accompanied patient. tm5 00:03 Awaiting ED physician evaluation. tm5 00:03 The patient / caregiver is instructed regarding the plan of care and ED course. tm5 00:03 O2 via nasal cannula \T\ 2L/min. tm5 00:09 Philly Pitts RN is Primary Nurse. tm5 00:24 Cristino Brewer MD is Attending Physician. pc 00:31 Patient visited by Philly Pitts RN. tm5 00:31 ED physician to see patient. tm5 00:32 Patient visited by Cristino Brewer MD. pc 00:48 Patient moved to Radiology gómez 00:55 Patient moved to radiology. tm5 00:57 Patient moved back from radiology. tm5 01:06 Patient moved to 11 gómez 01:25 Patient visited by Philly Pitts RN. tm5 01:36 Enmanuel Oconnell is Referral Physician. pc 01:50 Patient visited by Philly Pitts RN. tm5 01:50 No IV's were initiated during this patient's visit. No procedures done that require tm5 assistance. 03:23 [facility] Payment Agreement was scanned into [employer] and attached to record. hs2 09:04 Chest, 2 View (pa\E\lat) Returned. EDMS RT: 01:10 ABG's Patient Refused ABG. lf2 Order Results: Radiology Order: Chest, 2 View (pa\E\lat) Test: Chest, 2 View (pa\E\lat) REASON FOR EXAMINATION: Cough; Chest x-ray: Two views.; ; History: Cough.; ; Comparison chest x-ray April 02, 2016.; ; Findings: The patient is status post prior median sternotomy. EKG electrodes; are seen. There is right paratracheal mediastinal widening which is consistent; with mediastinal lymphadenopathy unchanged. Cardiomegaly is again observed.; Pulmonary vasculature is cephalized and there are a few Misha B lines at the; bases. There is slight blunting of the right lateral pleural angle. Lateral; film shows fissural thickening.; ; Impression:; ; CHF pattern. Mediastinal lymphadenopathy. No focal infiltrate.; ; ; Signed by; Yeison Krishnan MD 04/16/2016 02:59 P; Outcome: 01:37 Discharge ordered by Provider. pc 01:50 Discharge Assessment: Patient awake, alert and oriented x 3. No cognitive and/or tm5 functional deficits noted. Patient verbalized understanding of disposition instructions. patient administered narcotics - no. The following High Risk Discharge criteria are identified: None. Discharged to home ambulatory, with significant other. Condition: good Condition: stable Condition: improved. No special radiology studies were completed. Property :Personal belongings accompany Pt. 01:56 Patient left the ED. tm5 Signatures: Dispatcher [employer] EDMS Cristino Brewer MD MD pc [place], Floyd fab Rick, Mitchell, BOILER HOUSE OPERATOR BOILER HOUSE OPERATOR Lu Fernandez,RT RT lf2 Natalie Carmona, Reg Reg hs2 Edgard Johnson, BOILER HOUSE OPERATOR BOILER HOUSE OPERATOR Philly Sharp,RADHA RN tm5 Chart Complete MTDD
--- NOTE | 2016-04-18 02:56 | EDDOCDS ---
Physician Documentation [facility] Name: Antonio Rivera Age: 55 yrs Sex: Male : 1960 Arrival Date: 04/15/2016 Time: 23:47 Bed 11 Private MD: URBANO WOODWARD Disposition: 04/16 01:36 Critical Care: Critical care not applicable. pc Disposition: 04/16/16 01:37 Discharged to Home/Self Care. Impression: Chronic obstructive pulmonary disease, unspecified, End stage renal disease. - Condition is Stable. - Discharge Instructions: End-Stage Kidney Disease, Chronic Obstructive Pulmonary Disease. - Medication Reconciliation, Local Pharmacy Hours form. - Follow up: Enmanuel Oconnell; When: As previously arranged; Reason: Recheck today's complaints, Continuance of care. - Problem is an acute exacerbation. - Symptoms are resolved. HPI: 00:41 This 55 yrs old Male presents to ER via Ambulance with complaints of pc Breathing Difficulty. 00:41 The history is obtained from the patient. The patient presents with shortness of pc breath, with a prior history of COPD. The patient has shortness of breath He says he awoke this morning very SOB at 5:30am. He went to dialysis and had 8000mL removed, with his usual being 7000mL. He had to receive oxygen while on dialysis but was okay to be discharged home. He says he still feels SOB but has not been using his nebulizers. He denies any chest pain, fevers or chills.. The patient has experienced similar episodes in the past, chronically. The patient has been recently seen by Dr. Oconnell. Historical: - Allergies: mushrooms; Tape; - Home Meds: 1. albuterol sulfate 90 mcg/actuation Inhl HFAA 2 puffs every 4-6 hours 2. amlodipine 10 mg Oral tab 1 tab once daily 3. aspirin 325 mg Oral tab 1 tab once daily 4. atorvastatin 40 mg oral tab 1 tab once daily 5. calcium acetate 667 mg oral cap 4 caps 3 times per day 6. clopidogrel 75 mg oral tab 1 tab once daily 7. Flovent 110 mcg/actuation Inhl aero 2 puffs 2 times per day 8. furosemide 20 mg Oral tab 4 tab once daily 9. Humalog Pen sliding scale Sub-Q three times a day 10. isosorbide mononitrate 60 mg Oral Tb24 1 tab once daily 11. Levemir FlexTouch 100 unit/mL (3 mL) subcutaneous inpn 12 unit daily 12. Lopressor 50 mg Oral tab 2 times per day 13. losartan 100 mg oral tab 1 tab once daily 14. minoxidil 2.5 mg Oral tab 2 tabs 2 times per day 15. [place] 3 Fish Oil 900-1,400 mg oral cpDR twice a day 16. omeprazole 40 mg Oral cpDR 1 cap once daily 17. Sensipar 30 mg oral tab 1 tab once daily 18. Vitamin D Oral 2000 unit daily 19. Vitamin D3 4,000 unit oral cap daily - PMHx: Asthma; CHF; COPD; Diabetes - IDDM: controlled; GERD; Heart Disease; Renal Failure with Dialysis; Stroke; - PSHx: Cardiac stents; CABG; Adenoidectomy; Tonsillectomy; toe amputated; Appendectomy; - The history from nurses notes was reviewed: and I agree with what is documented. - Social history: Smoking status: Patient uses tobacco products, current every day smoker. No barriers to communication noted, The patient speaks fluent Sami. - Family history: Not pertinent. - : The pt / caregiver states he / she is on anticoagulants: Plavix. Home medication list is obtained from [employer] import data. - Hospitalizations: : The patient was recently seen at [facility], and discharged 1 month(s) ago, for similar complaints. - Exposure Risk Screening:: None identified. - Immunization history:: All immunizations up-to-date. - Social history:: the patient smokes cigarettes the patient drinks alcohol. ROS: 00:41 All systems are negative except as listed. The gastrointestinal and genitourinary pc components are also addressed in the HPI. Exam: 00:41 General Appearance: no acute distress, alert, laying at 15 degree incline, on room air, pc with a PO of 96%, hands behind head. 00:41 EENT: normal eye inspection, ears, nose and throat normal, pharynx normal, mucous membranes moist 00:41 Neck: normal inspection. 00:41 Respiratory: no respiratory distress, breath sounds normal, no pleuritic chest pain, speaks in full sentences. 00:41 Cardiovascular: normal heart rate, normal rhythm, no jugular venous distension appreciated, no murmurs, no gallop, no friction rub. 00:41 Abdomen: non-tender, non-distended, no organomegaly. 00:41 Skin: normal color, warm, dry. 00:41 Extremities: non-tender, normal range of motion of all joints, pedal edema is present and is 1 +. 00:41 Neuro: alert, oriented to person, place and time, cranial nerves normal as tested, no motor deficits, no sensory deficits. 00:41 Psych: normal mood. Vital Signs: 04/15 23:58 BP 152 / 71; Pulse 93; Resp 20; Temp 99.3(TE); Pulse Ox 95% on R/A; Weight 106.14 kg / jmv 234 lbs (R); Height 6 ft. 3 in. (190.50 cm) (R); Pain 5/10; 04/16 00:03 Pulse Ox 95% on R/A; tm5 00:11 BP 155 / 71 (auto/); tm5 00:12 Pulse 92 MON; Resp 18 S; Pulse Ox 93% on R/A; tm5 00:26 BP 152 / 72 (auto/); tm5 00:27 Pulse 92 MON; Pulse Ox 93% ; tm5 00:41 BP 148 / 59 (auto/); tm5 00:42 Pulse 90 MON; Pulse Ox 94% ; tm5 00:56 BP 142 / 63 (auto/); tm5 00:57 Pulse 92 MON; Resp 20 S; Pulse Ox 95% on R/A; Pain 0/10; tm5 01:11 BP 156 / 67 (auto/); tm5 01:12 Pulse 90 MON; Resp 20 S; Pulse Ox 94% on R/A; Pain 0/10; tm5 01:50 BP 145 / 65; Pulse 74; Resp 20; Temp 97.8(O); Pulse Ox 96% on R/A; Pain 0/10; tm5 04/15 23:58 Body Mass Index 29.25 (106.14 kg, 190.50 cm) jmv 00:03 pt very talkative on rrom air & 02 sat remains in high 90's tm5 MDM: 00:40 Call Respiratory ordered. pc 00:41 Differential diagnosis: Anxiety Reaction Chronic Obstructive Pulmonary Disease ESRD. pc Plan: Lab, CXR. 00:42 Call Respiratory complete. mdr 00:42 Chest, 2 View (pa\E\lat) Ordered. EDMS 00:56 Financial registration complete. hs2 01:36 Data reviewed: old medical records, vital signs, nurses notes, all radiology studies pc and available results. Test interpretation: X-RAY - interpreted by me, 2 view chest, no acute disease. The patient has been re-examined and re-evaluated. The clinical presentation did not require any ED treatment or interventions. Disposition: The historical points, examination findings, and any diagnostic results supporting the provided diagnosis, were discussed with the patient or legal guardian. The need for outpatient follow up with the provider listed on their discharge instructions was discussed. They were encouraged to return to [facility], or the nearest ED, if symptoms worsen/persist, or for any other questions/concerns. 03:23 [facility] Payment Agreement was scanned into [employer] and attached to record. hs2 Signatures: Dispatcher [employer] [facility] Cristino Brewer MD MD pc Rick, Mitchell, OPTIMIZATION ENGINEER OPTIMIZATION ENGINEER Natalie Almanza, Reg Reg hs2 Philly Pitts,RN RN tm5 The chart was reviewed and I authenticate all verbal orders and agree with the evaluation and treatment provided.Corrections: (The following items were deleted from the chart) 01:28 00:42 ARTERIAL BLOOD GAS+LAB ordered. [facility] EDKS Attachments: 03:23 [facility] Payment Agreement hs2 Chart Complete MTDD
== END 2016-04-16 01:56 | disposition home or self-care (01) ==
LOC: M ED 23:47
DX: J44.9 Chronic obstructive pulmonary disease, unspecified (principal); N18.6 End stage renal disease; J45.909 Unspecified asthma, uncomplicated; I50.20 Unspecified systolic (congestive) heart failure; E11.9 Type 2 diabetes mellitus without complications; K21.9 Gastro-esophageal reflux disease without esophagitis; I25.10 Atherosclerotic heart disease of native coronary artery without angina pectoris; Z86.73 Personal history of transient ischemic attack (TIA), and cerebral infarction without residual deficits; Z79.4 Long term (current) use of insulin; Z79.82 Long term (current) use of aspirin; Z79.899 Other long term (current) drug therapy; F17.210 Nicotine dependence, cigarettes, uncomplicated; Z91.018 Allergy to other foods; Z91.09 Other allergy status, other than to drugs and biological substances

== ENCOUNTER 2016-05-20 23:27 | Emergency (ER) | payer MEDICARE, MEDICAID ==
[2016-05-20] MEDS ORDERED: ONDANSETRON 4 MG ORAL DISINTEGRATING TAB (S0181) PO ONE (23:45)
[2016-05-21 00:40] LABS: CALCIUM LEVEL 9.3 MG/DL (8.5-10.1); CREATININE FOR GFR 4.59 MG/DL (0.70-1.30); GLOMERULAR FILTRATION RATE 14.1 (>56); POTASSIUM SERUM 5.1 MEQ/L (3.5-5.1)
[2016-05-21] MEDS ORDERED: ZOFR4TAB3 PO (00:47)
[2016-05-21 00:54] VITALS: BP 170/77
== END 2016-05-21 01:17 | disposition home or self-care (01) ==
LOC: EDBD 23:27 → M ED 05-21 00:53
DX: K52.9 Noninfective gastroenteritis and colitis, unspecified (principal); I12.9 Hypertensive chronic kidney disease with stage 1 through stage 4 chronic kidney disease, or unspecified chronic kidney disease; I25.10 Atherosclerotic heart disease of native coronary artery without angina pectoris; E11.9 Type 2 diabetes mellitus without complications; K21.9 Gastro-esophageal reflux disease without esophagitis; N18.9 Chronic kidney disease, unspecified; F17.200 Nicotine dependence, unspecified, uncomplicated; Z99.2 Dependence on renal dialysis; Z79.899 Other long term (current) drug therapy; Z79.51 Long term (current) use of inhaled steroids; Z79.82 Long term (current) use of aspirin; Z79.4 Long term (current) use of insulin; Z88.8 Allergy status to other drugs, medicaments and biological substances; Z91.018 Allergy to other foods; Z91.048 Other nonmedicinal substance allergy status

== ENCOUNTER 2016-06-23 19:03 | Emergency (ER) | payer MEDICARE, MEDICAID ==
[~2016-06-23] VITALS: Ht 188 cm; Wt 93.4 kg
[~2016-06-23 19:03] MED LIST changes: +ZOFR4TAB3 PO
[2016-06-23] MEDS ORDERED: ACETAMINOPH W/CODEINE #3 TAB UD PO ONE (19:30)
[2016-06-23] MEDS ORDERED: CLINDAMYCIN 150 MG CAP PO ONE (19:30)
[2016-06-23] MEDS ORDERED: CLEO150C PO (19:33)
[2016-06-23] MEDS ORDERED: ACET30TAB PO (19:33)
[2016-06-23 19:55] VITALS: BP 193/91
== END 2016-06-23 20:00 | disposition home or self-care (01) ==
LOC: M ED 19:42
DX: E11.622 Type 2 diabetes mellitus with other skin ulcer (principal); Z79.4 Long term (current) use of insulin

== ENCOUNTER 2016-07-02 15:27 | Emergency (ER) | payer MEDICARE, MEDICAID ==
[~2016-07-02] VITALS: Ht 190.5 cm; Wt 91.6 kg
[~2016-07-02 15:27] MED LIST changes: +ACET30TAB PO; +CLEO150C PO
[2016-07-02 16:36] LABS: INR 1.09
--- NOTE | 2016-07-02 16:48 | REP ---
RIGHT FOOT, FOUR VIEWS: HISTORY: Possible osteomyelitis. The patient is status-post amputation of the distal , intermediate phalanges and head of the proximal phalange of the first digit. There is no acute fracture or dislocation. The joint spaces are normal in appearance. A soft-tissue defect is present lateral to the head of the 5th metatarsal. IMPRESSION: The patient is status-post amputation of the first digit. Signed by Julian Briggs MD 07/02/2016 05:18 P
[2016-07-02 16:51] LABS: ALBUMIN 3.6 GM/DL (3.2-5.2); ALBUMIN/GLOBULIN RATIO 0.92 (1.00-1.93); BASO # 0.1 K/mm3 (0.0-0.2); BASO % 0.8 % (0.0-1.0); BILIRUBIN,DIRECT 0.6 MG/DL (0.0-0.2); CALCIUM LEVEL 9.1 MG/DL (8.5-10.1); CREATININE FOR GFR 5.44 MG/DL (0.70-1.30); EOS # 0.3 K/mm3 (0.0-0.50); EOS % 3.5 % (0.0-3.0); GLOMERULAR FILTRATION RATE 11.6 (>56); LARGE UNSTAINED CELL # 0.2 K/mm3 (0.0-0.4); LARGE UNSTAINED CELL % 2.5 % (0.0-4.0); LYMPH # 1.1 K/mm3 (1.5-4.5); LYMPH % 13.6 % (24.0-44.0); MEAN CORPUSCULAR HEMOGLOBIN 31.7 pg (27.0-33.0); MEAN CORPUSCULAR VOLUME 95.9 fl (80.0-96.0); MONO # 0.7 K/mm3 (0.0-0.8); MONO % 8.2 % (0.0-5.0); NEUTROPHILS # 5.9 K/mm3 (1.8-7.7); NEUTROPHILS % 71.5 % (36.0-66.0); PLATELET COUNT, AUTOMATED 287 k/mm3 (150-450); POTASSIUM SERUM 4.7 MEQ/L (3.5-5.1); RED CELL DISTRIBUTION WIDTH 15.6 % (11.5-14.5); TOTAL PROTEIN 7.5 GM/DL (6.4-8.2); WHITE BLOOD COUNT 8.3 K/mm3 (4.0-10.0)
[2016-07-02] MEDS ORDERED: AMPICILLIN SOD/SULBACTAM SOD 3 GM in D5W MINI-BAG PLUS 100 ML IV ONE (17:00)
[2016-07-02] MEDS ORDERED: DOXY100C37 PO (17:00)
[2016-07-02 17:50] VITALS: BP 140/72
== END 2016-07-02 18:01 | disposition home or self-care (01) ==
LOC: M ED 15:57
DX: E11.621 Type 2 diabetes mellitus with foot ulcer (principal); L03.115 Cellulitis of right lower limb; J45.909 Unspecified asthma, uncomplicated; E11.22 Type 2 diabetes mellitus with diabetic chronic kidney disease; Z89.421 Acquired absence of other right toe(s); N18.6 End stage renal disease; Z86.73 Personal history of transient ischemic attack (TIA), and cerebral infarction without residual deficits; Z86.718 Personal history of other venous thrombosis and embolism; Z95.1 Presence of aortocoronary bypass graft; Z95.5 Presence of coronary angioplasty implant and graft; Z99.2 Dependence on renal dialysis; Z79.899 Other long term (current) drug therapy; Z79.4 Long term (current) use of insulin; Z79.82 Long term (current) use of aspirin; Z88.8 Allergy status to other drugs, medicaments and biological substances; Z91.018 Allergy to other foods; L23.1 Allergic contact dermatitis due to adhesives; F17.210 Nicotine dependence, cigarettes, uncomplicated

== ENCOUNTER 2016-07-16 18:10 | Emergency (ER) | payer MEDICARE, MEDICAID ==
[~2016-07-16] VITALS: Ht 190.5 cm; Wt 88.0 kg
[~2016-07-16 18:10] MED LIST changes: +DOXY100C37 PO
[2016-07-16] MEDS ORDERED: MORPHINE 2 MG/ML 1ML SYRINGE IV ONE (19:30)
--- NOTE | 2016-07-16 20:10 | REPUSA ---
CLINICAL HISTORY: Headache. TECHNIQUE: Multiple axial CT images were obtained through the brain without IV contrast material. COMMENTS: There is normal configuration of sella turcica. There are no intra or extra-axial collections. There is no mass effect or midline shift. There is no evidence of hematoma formation. No hydrocephalus is p resent. The ventricles are symmetrical. No abnormal calcifications are present. There is encephalomalacia involving right frontal and right parietal lobe compatible with old infarct s. Old lacunar infarct is noted involving the right internal capsule. There is diffuse age-appropriate cerebellar and cerebral atrophy with proportionally dilated ventricl es and cortical sulci. There are bilateral periventricular and subcortical white matter hypolucencies compatible with mild c hronic microvascular disease. Otherwise, no significant focal abnormalities are seen either in the posterior fossa or supratentoria l compartment. IMPRESSION: 1. Age-appropriate cerebellar and cerebral atrophy. 2. Mild chronic microvascular disease. 3. There is encephalomalacia involving right frontal and right parietal lobe compatible with old infa rcts. Old lacunar infarct is noted involving the right internal capsule. 4. No evidence of acute intracranial pathology. Thank you for your kind referral of this patient.
[2016-07-16 20:21] LABS: BASO # 0.1 K/mm3 (0.0-0.2); BASO % 0.9 % (0.0-1.0); EOS # 0.2 K/mm3 (0.0-0.50); LARGE UNSTAINED CELL # 0.2 K/mm3 (0.0-0.4); LARGE UNSTAINED CELL % 1.9 % (0.0-4.0); LYMPH # 1.1 K/mm3 (1.5-4.5); LYMPH % 14.4 % (24.0-44.0); MEAN CORPUSCULAR HEMOGLOBIN 32.1 pg (27.0-33.0); MEAN CORPUSCULAR HGB CONC 32.3 g/dl (32.0-36.5); MEAN CORPUSCULAR VOLUME 99.6 fl (80.0-96.0); MONO # 0.5 K/mm3 (0.0-0.8); MONO % 6.9 % (0.0-5.0); NEUTROPHILS # 5.6 K/mm3 (1.8-7.7); NEUTROPHILS % 72.9 % (36.0-66.0); PLATELET COUNT, AUTOMATED 268 k/mm3 (150-450); RED CELL DISTRIBUTION WIDTH 16.1 % (11.5-14.5); WHITE BLOOD COUNT 7.6 K/mm3 (4.0-10.0)
[2016-07-16 20:41] LABS: CALCIUM LEVEL 8.8 MG/DL (8.5-10.1); CREATININE FOR GFR 5.44 MG/DL (0.70-1.30); GLOMERULAR FILTRATION RATE 11.6 (>56); POTASSIUM SERUM 4.7 MEQ/L (3.5-5.1)
[2016-07-16 20:45] LABS: INR 1.07
[2016-07-16 21:38] VITALS: BP 178/86
== END 2016-07-16 21:41 | disposition home or self-care (01) ==
LOC: EDBD 18:10 → M ED 19:09
DX: T58.8X1A Toxic effect of carbon monoxide from other source, accidental (unintentional), initial encounter (principal); F17.210 Nicotine dependence, cigarettes, uncomplicated; R51 Headache; I25.10 Atherosclerotic heart disease of native coronary artery without angina pectoris; E11.9 Type 2 diabetes mellitus without complications; K21.9 Gastro-esophageal reflux disease without esophagitis; J44.9 Chronic obstructive pulmonary disease, unspecified; N17.9 Acute kidney failure, unspecified; Z99.2 Dependence on renal dialysis

== ENCOUNTER → 2016-07-18 | Outpatient (REF) | payer MEDICARE, MEDICAID | LOC: M LAB REF 16:19 | PROVIDERS: ATTEND Surgery | DX: E11.621 Type 2 diabetes mellitus with foot ulcer (principal) ==

== ENCOUNTER 2016-07-27 19:18 | Emergency (ER) | payer MEDICARE, MEDICAID ==
[~2016-07-27] VITALS: Ht 190.5 cm; Wt 88.0 kg
[2016-07-27] MEDS ORDERED: NITROGLYCERIN 2% OINT 1 GM *U/D* PKT TOP ONE (19:45)
[2016-07-27] MEDS ORDERED: dexameTHASONE 20 MG/5 ML VIAL (J1100) IV ONE (19:45)
[2016-07-27] MEDS: IPRATROPIUM 0.5MG/ALBUTEROL 2.5MG INH SOL UD 3ML (DUONEB)(J7620) NEB SCH ×2 (20:01→20:02)
[2016-07-27 20:37] LABS: VENOUS BASE EXCESS -5.5 (-2.0-2.0); VENOUS O2 SATURATION 81.9 % (60.0-80.0); VENOUS PARTIAL PRESSURE CO2 39.9 mmHg (38.0-50.0); VENOUS PARTIAL PRESSURE O2 51.5 mmHg (30.0-50.0); VENOUS STANDARD HCO3 19.6 MEQ/L; VENOUS TOTAL CO2 21.4 MEQ/L (24.0-28.0)
[2016-07-27 20:40] LABS: BASO % 0.5 % (0.0-1.0); EOS # 0.2 K/mm3 (0.0-0.50); EOS % 2.3 % (0.0-3.0); LARGE UNSTAINED CELL # 0.1 K/mm3 (0.0-0.4); LARGE UNSTAINED CELL % 1.4 % (0.0-4.0); LYMPH % 11.6 % (24.0-44.0); MEAN CORPUSCULAR HEMOGLOBIN 32.3 pg (27.0-33.0); MEAN CORPUSCULAR HGB CONC 33.3 g/dl (32.0-36.5); MONO # 0.7 K/mm3 (0.0-0.8); MONO % 8.8 % (0.0-5.0); NEUTROPHILS # 5.9 K/mm3 (1.8-7.7); NEUTROPHILS % 75.4 % (36.0-66.0); PLATELET COUNT, AUTOMATED 273 k/mm3 (150-450); RED CELL DISTRIBUTION WIDTH 16.4 % (11.5-14.5); WHITE BLOOD COUNT 7.8 K/mm3 (4.0-10.0)
[2016-07-27 21:59] LABS: CALCIUM LEVEL 9.4 MG/DL (8.5-10.1); CREATININE FOR GFR 7.69 MG/DL (0.70-1.30); GLOMERULAR FILTRATION RATE 7.8 (>56)
[2016-07-27 22:07] VITALS: BP 184/89
[2016-07-27] MEDS ORDERED: PRED20TA PO (22:09)
--- NOTE | 2016-07-28 08:11 | REP ---
Clinical: Dyspnea . Comparison: 04/16/2016 . Findings: The mediastinum and cardiac silhouette are stable and again demonstrate cardiomegaly with prior sternotomy and CABG. The lung rivera are clear without acute consolidation, effusion, or pneumothorax. Skeletal structures are intact. Impression: No acute cardiopulmonary process. Signed by Minesh Meier MD 07/28/2016 08:02 A
== END 2016-07-27 22:40 | disposition home or self-care (01) ==
LOC: EDBD 19:18 → M ED 20:08
DX: J44.9 Chronic obstructive pulmonary disease, unspecified (principal); N18.9 Chronic kidney disease, unspecified; I25.10 Atherosclerotic heart disease of native coronary artery without angina pectoris; E11.22 Type 2 diabetes mellitus with diabetic chronic kidney disease; I12.9 Hypertensive chronic kidney disease with stage 1 through stage 4 chronic kidney disease, or unspecified chronic kidney disease; E78.5 Hyperlipidemia, unspecified; K21.9 Gastro-esophageal reflux disease without esophagitis; F17.200 Nicotine dependence, unspecified, uncomplicated; Z99.2 Dependence on renal dialysis; Z95.5 Presence of coronary angioplasty implant and graft; Z79.899 Other long term (current) drug therapy; Z88.1 Allergy status to other antibiotic agents; Z88.8 Allergy status to other drugs, medicaments and biological substances; Z91.018 Allergy to other foods; Z91.09 Other allergy status, other than to drugs and biological substances
CPT/HCPCS: 36415; 36600; 71010; 80048; 82375; 82803; 85025; 87040; 94640; 96374; 99284; J1100

== ENCOUNTER 2016-08-02 21:15 | Emergency (ER) | payer MEDICARE, MEDICAID ==
[~2016-08-02] VITALS: Ht 190.5 cm; Wt 97.1 kg
[2016-08-02] MEDS ORDERED: TRAM50TA2 PO (21:41)
[2016-08-02] MEDS ORDERED: BACT800T5 PO (21:41)
[2016-08-02] MEDS ORDERED: ASPIRIN 81 MG CHEW TABLET PO ONE (21:45)
[2016-08-02 22:06] LABS: BASO % 0.2 % (0.0-1.0); EOS # 0.3 K/mm3 (0.0-0.50); EOS % 2.9 % (0.0-3.0); LARGE UNSTAINED CELL # 0.1 K/mm3 (0.0-0.4); LARGE UNSTAINED CELL % 1.2 % (0.0-4.0); LYMPH % 9.5 % (24.0-44.0); MEAN CORPUSCULAR HGB CONC 33.3 g/dl (32.0-36.5); MEAN CORPUSCULAR VOLUME 96.1 fl (80.0-96.0); MONO # 0.8 K/mm3 (0.0-0.8); MONO % 8.3 % (0.0-5.0); NEUTROPHILS # 7.6 K/mm3 (1.8-7.7); NEUTROPHILS % 77.9 % (36.0-66.0); PLATELET COUNT, AUTOMATED 312 k/mm3 (150-450); RED CELL DISTRIBUTION WIDTH 16.1 % (11.5-14.5); WHITE BLOOD COUNT 9.8 K/mm3 (4.0-10.0)
[2016-08-02 22:38] LABS: CALCIUM LEVEL 8.7 MG/DL (8.5-10.1); CREATININE FOR GFR 3.58 MG/DL (0.70-1.30); GLOMERULAR FILTRATION RATE 18.8 (>56); POTASSIUM SERUM 3.9 MEQ/L (3.5-5.1)
[2016-08-03 00:41] VITALS: BP 174/78
--- NOTE | 2016-08-03 08:28 | REP ---
Clinical: Chest pain. Comparison: 07/27/2016. Mediastinum and cardiac silhouette are stable mild cardiomegaly cannot be excluded. No obvious focal consolidation, effusion, or pneumothorax appreciated. However, subtle right middle lobe atelectasis cannot be excluded and should be correlated with auscultation. Skeletal structures intact. Impression: Relatively stable examination. Cannot exclude trace right middle lobe atelectasis. Signed by Minesh Meier MD 08/03/2016 08:19 A
--- NOTE | 2016-08-03 09:29 | ECGEPIP ---
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
== END 2016-08-03 00:44 | disposition short-term general hospital (02) ==
LOC: M ED 21:46
DX: I21.4 Non-ST elevation (NSTEMI) myocardial infarction (principal); R07.9 Chest pain, unspecified; I51.9 Heart disease, unspecified; E11.22 Type 2 diabetes mellitus with diabetic chronic kidney disease; E11.21 Type 2 diabetes mellitus with diabetic nephropathy; J44.9 Chronic obstructive pulmonary disease, unspecified; N18.9 Chronic kidney disease, unspecified; F17.200 Nicotine dependence, unspecified, uncomplicated; Z99.2 Dependence on renal dialysis; Z95.5 Presence of coronary angioplasty implant and graft; Z86.718 Personal history of other venous thrombosis and embolism; Z90.89 Acquired absence of other organs; Z82.49 Family history of ischemic heart disease and other diseases of the circulatory system

== ENCOUNTER 2016-08-08 13:59 | Emergency (ER) | payer MEDICARE, MEDICAID ==
[~2016-08-08] VITALS: Ht 190.5 cm; Wt 92.5 kg
[~2016-08-08 13:59] MED LIST changes: +BACT800T5 PO; +TRAM50TA2 PO
[2016-08-08 15:53] LABS: BASO % 0.4 % (0.0-1.0); EOS # 0.3 K/mm3 (0.0-0.50); LARGE UNSTAINED CELL # 0.1 K/mm3 (0.0-0.4); LARGE UNSTAINED CELL % 1.2 % (0.0-4.0); LYMPH # 0.9 K/mm3 (1.5-4.5); MEAN CORPUSCULAR HEMOGLOBIN 32.4 pg (27.0-33.0); MEAN CORPUSCULAR HGB CONC 33.2 g/dl (32.0-36.5); MEAN CORPUSCULAR VOLUME 97.7 fl (80.0-96.0); MONO # 0.7 K/mm3 (0.0-0.8); MONO % 7.4 % (0.0-5.0); NEUTROPHILS # 7.1 K/mm3 (1.8-7.7); PLATELET COUNT, AUTOMATED 202 k/mm3 (150-450); RED CELL DISTRIBUTION WIDTH 16.2 % (11.5-14.5)
[2016-08-08 17:34] VITALS: BP 182/79
== END 2016-08-08 17:34 | disposition home or self-care (01) ==
LOC: M ED 15:08
DX: L76.22 Postprocedural hemorrhage of skin and subcutaneous tissue following other procedure (principal); I12.9 Hypertensive chronic kidney disease with stage 1 through stage 4 chronic kidney disease, or unspecified chronic kidney disease; N18.9 Chronic kidney disease, unspecified; I69.020 Aphasia following nontraumatic subarachnoid hemorrhage; F17.200 Nicotine dependence, unspecified, uncomplicated; Z95.5 Presence of coronary angioplasty implant and graft

== ENCOUNTER 2016-08-18 19:59 | Inpatient (IN) | payer MEDICARE, MEDICAID ==
[~2016-08-18] VITALS: Ht 182.9 cm; Wt 94.1 kg
[2016-08-18 21:03] LABS: BASO # 0.1 K/mm3 (0.0-0.2); BASO % 1.4 % (0.0-1.0); EOS # 0.3 K/mm3 (0.0-0.50); EOS % 5.3 % (0.0-3.0); LARGE UNSTAINED CELL # 0.1 K/mm3 (0.0-0.4); LARGE UNSTAINED CELL % 1.3 % (0.0-4.0); LYMPH # 1.1 K/mm3 (1.5-4.5); LYMPH % 16.5 % (24.0-44.0); MEAN CORPUSCULAR HEMOGLOBIN 31.9 pg (27.0-33.0); MEAN CORPUSCULAR HGB CONC 33.1 g/dl (32.0-36.5); MEAN CORPUSCULAR VOLUME 96.4 fl (80.0-96.0); MONO # 0.6 K/mm3 (0.0-0.8); MONO % 9.2 % (0.0-5.0); NEUTROPHILS % 66.2 % (36.0-66.0); PLATELET COUNT, AUTOMATED 216 k/mm3 (150-450); RED CELL DISTRIBUTION WIDTH 15.5 % (11.5-14.5)
[2016-08-18 21:22] LABS: CALCIUM LEVEL 8.7 MG/DL (8.5-10.1); CREATININE FOR GFR 6.06 MG/DL (0.70-1.30); GLOMERULAR FILTRATION RATE 10.2 (>56)
[2016-08-18] MEDS ORDERED: DEXTROSE 50% 50 ML SYRINGE IV STA (23:58)
[2016-08-18] MEDS ORDERED: HumuLIN R (REGULAR) INSULIN (NovoLIN R) **100U/ML** PER UNIT SC STA (23:58)
[2016-08-19] MEDS ORDERED: ALBUTEROL SULFATE 2.5 MG/0.5 ML INH NEB SOLN NEB ONE
[2016-08-19] MEDS ORDERED: ALBU83IN INH ×2 (02:56)
[2016-08-19] MEDS ORDERED: TRIC145T PO (02:56)
[2016-08-19] MEDS ORDERED: AMLO5TAB2 PO (02:56)
[2016-08-19] MEDS ORDERED: COUM1TAB17 PO (02:56)
[2016-08-19] MEDS ORDERED: INSULANT SC ×2 (02:56)
[2016-08-19] MEDS ORDERED: NITR4TASL SL (02:56)
[2016-08-19] MEDS ORDERED: ATEN25TA PO (02:56)
[2016-08-19] MEDS ORDERED: SOD POLYSTYRENE SULFONATE SUSP 15 GM/60 ML UD PO ONE ×2 (04:30)
[2016-08-19 05:21] VITALS: BP 125/60
[2016-08-19 05:57] VITALS: BP 125/60
--- NOTE | 2016-08-19 05:59 | ECGEPIP ---
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
--- NOTE | 2016-08-19 06:02 | ECGEPIP ---
Stationary ECG Study [facility] - ED Test Date: 2016-08-18 Pat Name: JOHNNY GILES Department: Room: - Gender: M Email Administrator: freeman : 1960 Requested By: SEBASTIÁN Jimenez Order Number: [id number] Reading MD: Cristino Brewer Measurements Intervals [place] Rate: 83 P: 6 ID: 203 QRS: -47 QRSD: 196 T: 154 QT: 418 QTc: 493 Interpretive Statements SINUS RHYTHM MARKED LEFT AXIS DEVIATION RIGHT BUNDLE BRANCH BLOCK LEAD II UNINTERPRETABLE Electronically Signed On 08-19-2016 6:02:03 EDT by Cristino Brewer
[2016-08-19 06:07] LABS: MEAN CORPUSCULAR HGB CONC 34.3 g/dl (32.0-36.5); MEAN CORPUSCULAR VOLUME 96.3 fl (80.0-96.0); RED CELL DISTRIBUTION WIDTH 15.6 % (11.5-14.5); WHITE BLOOD COUNT 6.1 K/mm3 (4.0-10.0)
[2016-08-19 06:08] LABS: INR 1.04
--- NOTE | 2016-08-19 06:29 | HPEPDOC ---
General Date of Admission Aug 19, 2016 at 04:21 Primary Care Physician: Phan Lancaster Attending Physician: CHRISTOFER CARD DO Chief Complaint The patient is a 56-year-old male admitted with a reason for visit of Chest Pain ,Esrd,Hyperkalemia,Hyponatremia. Source: Patient Exam Limitations: No limitations Timing/Duration: 24 hours Severity: Moderate Associated Symptoms: Chest Pain, Diaphoresis History of Present Illness 56-year-old male with a recent coronary stent last month, presented with chest pain. Patient complains of far just intermittent and nonradiating 8 x 10 in intensity. There are no tingling, numbness. Present there has been compliant with the medicine Home Medications Scheduled Albuterol Sulfate (Albuterol Sulfate) 2.5 Mg/3 Ml Nebu, 2.5 MG INH BID, ( Reported) Amlodipine Besylate (Amlodipine Besylate) 5 Mg Tab, 5 MG PO DAILY, (Reported) Aspirin (Aspirin) 325 Mg Tab, 325 MG PO DAILY, (Reported) Atenolol (Atenolol) 25 Mg Tab, 25 MG PO DAILY, (Reported) Clopidogrel Bisulfate (Clopidogrel) 75 Mg Tab, 75 MG PO DAILY, (Reported) Fenofibrate (Tricor) 145 Mg Tab, 145 MG PO DAILY, (Reported) Insulin Glargine (Lantus) 1 Units/0.01 Ml Susp, 35 UNITS SC QAM, (Reported) Insulin Glargine (Lantus) 1 Units/0.01 Ml Susp, 30 UNITS SC QHS, (Reported) [place] 3 Polyunsat Fatty Acids (Lovaza 1 gm) 1 Cap Cap, 1 CAP PO BID, (Reported) Omeprazole (Omeprazole) 40 Mg Cap, 40 MG PO DAILY, (Reported) Warfarin Sod (Coumadin) 5 Mg Tab, 5 MG PO ASDIRECTED, (Reported) Scheduled PRN Albuterol Sulfate (Proair Hfa) 108 Mcg/Act Aer, 2 PUFF INH Q4H PRN for SHORTNESS OF BREATH, (Reported) Albuterol Sulfate (Albuterol Sulfate) 2.5 Mg/3 Ml Nebu, 2.5 MG INH Q4H PRN for SHORTNESS OF BREATH, (Reported) Nitroglycerin (Nitrostat) 0.4 Mg Subl, 0.4 MG SL NITRO PRN for CHEST PAIN, ( Reported) Allergies Coded Allergies: Pregabalin (Unverified Allergy, Intermediate, FEET SWELLING, 04/03/16) Mushroom (Unverified Allergy, Unknown, 04/03/16) TAPE (Unverified Allergy, Unknown, 07/10/15) Varenicline (Verified Allergy, Unknown, 07/02/16) Past Medical History Medical History CAD, hypertension, some anemia and associated renal disease on hemodialysis Surgical History Coronary a stent Review of Symptoms Constitutional: Reports: Fatigue, Lethargy, Denies: Chills, Fever, Night Sweats Eyes: Denies: Pain, Vision change ENT: Denies: Head Aches, Ear Pain, Dysphagia Skin: Denies: Rash, Lesions, Breakdown Pulmonary: Denies: Dyspnea, Cough Cardiovascular: Reports: Chest Pain, Palpitations, Orthopnea, Denies: Paroxysmal Noc. Dyspnea, Lt Headedness Gastrointestinal: Denies: Nausea, Vomiting, Abdominal Pain, Diarrhea Genitourinary: Denies: Dysuria, Frequency, Incontinence, Retention Hematologic: Denies: Bruising, Bleeding Excessively Musculoskeletal: Denies: Neck Pain, Back Pain, Joint Pain, Muscle Pain, Spasms Neurological: Denies: Weakness, Numbness, Change in speech, Confusion Psych: Reports: Mood Normal, Denies: Depression, Memory Issues Physical Examination General Exam: Positive: Alert, Mild Distress Eye Exam: Positive: PERRLA, Conjunctiva & lids normal, EOMI, Negative: Sclera icteric ENT Exam: Positive: Atraumatic, Mucous membr. moist/pink, Pharynx Normal Neck Exam: Positive: Supple, Negative: JVD, thyromegaly Chest Exam: Positive: Rales Heart Exam: Positive: Rate Normal, Regular Rhythm, Normal S1, Normal S2, Negative: Murmurs, Rubs Telemetry: Positive: No significant arrhythmia Abdomen Exam: Positive: Normal bowel sounds, Soft, Negative: Tenderness, Hepatospenomegaly Extremity Exam: Positive: Normal pulses, Negative: Clubbing, Cyanosis, Edema Skin Exam: Positive: Nl turgor and temperature, Negative: Breakdown, Lesion Neuro Exam: Positive: Normal Gait, Normal Speech, Cranial Nerves 3-12 NL, Reflexes 2+ Psych Exam: Positive: Mental status NL, Mood NL, Oriented x 3 Vital Signs Vital Signs Date Time Temp Pulse Resp B/P (MAP) Pulse Ox O2 Delivery O2 Flow Rate FiO2 08/19/16 05:57 98.0 85 20 125/60 (81) 97 Room Air Laboratory Data Labs 24H Laboratory Tests 2 08/18/16 20:43: White Blood Count 6.0, Red Blood Count 3.37L, Hemoglobin 10.7L, Hematocrit 32.4L , Mean Corpuscular Volume 96.4H, Mean Corpuscular Hemoglobin 31.9, Mean Corpuscular Hemoglobin Concent 33.1, Red Cell Distribution Width 15.5H, Platelet Count 216, Neutrophils (%) (Auto) 66.2H, Lymphocytes (%) (Auto) 16.5L, Monocytes (%) (Auto) 9.2H, Eosinophils (%) (Auto) 5.3H, Basophils (%) (Auto) 1.4H, Neutrophils # (Auto) 4.0, Lymphocytes # (Auto) 1.1L, Monocytes # (Auto) 0.6, Eosinophils # (Auto) 0.3, Basophils # (Auto) 0.1, Large Unclassified Cells % 1.3, Large Unclassified Cells # 0.1, Anion Gap 9, Glomerular Filtration Rate 10.2L, Blood Urea Nitrogen 41H, Creatinine 6.06H, Sodium Level 120L, Potassium Level 6.0H, Chloride Level 85L, Carbon Dioxide Level 26, Calcium Level 8.7, Total Creatine Kinase 84, Creatine Kinase MB 3.6, Creatine Kinase MB Relative Index 4.28H, Troponin I 0.06 08/18/16 23:19: Total Creatine Kinase 78, Creatine Kinase MB 3.4, Creatine Kinase MB Relative Index 4.35H, Troponin I 0.05 08/19/16 00:34: Bedside Glucose (Misc Panel) 104 08/19/16 05:55: Prothrombin Time 13.7, Prothromb Time International Ratio 1.04 CBC/BMP Laboratory Tests 08/18/16 20:43 Red Blood Count 3.37 L, Mean Corpuscular Volume 96.4 H, Mean Corpuscular Hemoglobin 31.9, Mean Corpuscular Hemoglobin Concent 33.1, Red Cell Distribution Width 15.5 H, Neutrophils (%) (Auto) 66.2 H, Lymphocytes (%) (Auto ) 16.5 L, Monocytes (%) (Auto) 9.2 H, Eosinophils (%) (Auto) 5.3 H, Basophils (% ) (Auto) 1.4 H, Neutrophils # (Auto) 4.0, Lymphocytes # (Auto) 1.1 L, Monocytes # (Auto) 0.6, Eosinophils # (Auto) 0.3, Basophils # (Auto) 0.1, Calcium Level 8.7, Total Creatine Kinase 84 08/19/16 05:55 Red Blood Count 3.26 L, Mean Corpuscular Volume 96.3 H, Mean Corpuscular Hemoglobin 33.0, Mean Corpuscular Hemoglobin Concent 34.3, Red Cell Distribution Width 15.6 H Assessment/Plan 56-year-old man, history of CAD status post coronary stent last month, presented to the emergency department for chest pain. Problems (1) Hyponatremia Status: Acute Problem Text: Sodium 120 likely due to hypovolemic hyponatremia. 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 He'll likely due to a ESRD on hemodialysis, given a Kayexalate will follow up on potassium (3) Chest pain Status: Acute Problem Text: R troponin 0.06%. Her exam is tender just last month and the patient has been complaining days is likely that presented in a stent occluded with follow-up with cardiology consult (4) ESRD (end stage renal disease) Status: Chronic Problem Text: We will get nephrology involved and the present, will get hemodialysis today and Thursday. In the 6.6 Plan / VTE VTE Prophylaxis Ordered?: Yes Plan Diet: Continue Current Activity: Continue Current Anticipated Discharge: Home MARYLIN GOODEN MD Aug 19, 2016 06:29
[2016-08-19 06:31] LABS: CALCIUM LEVEL 8.7 MG/DL (8.5-10.1); CREATININE FOR GFR 6.33 MG/DL (0.70-1.30); GLOMERULAR FILTRATION RATE 9.7 (>56); MAGNESIUM LEVEL 1.7 MG/DL (1.8-2.4)
[2016-08-19 06:35] LABS: POTASSIUM SERUM 5.6 MEQ/L (3.5-5.1)
[2016-08-19 08:00] VITALS: BP 130/65
--- NOTE | 2016-08-19 08:52 | REP ---
Chest two views HISTORY: Chest pain Comparison: 08/02/2016 The lungs are clear. The cardiac silhouette is enlarged. The pulmonary vasculature is normal in appearance. The bony structure is intact. IMPRESSION: Cardiomegaly. Signed by Julian Briggs MD 08/19/2016 08:43 A
[2016-08-19] MEDS ORDERED: TOLVAPTAN 15 MG TAB (SAMSCA) PO SCH (09:00)
[2016-08-19] MEDS ORDERED: CLOPIDOGREL 75 MG TAB PO SCH (09:00)
[2016-08-19] MEDS: CLOPIDOGREL 75 MG TAB PO SCH (09:00)
[2016-08-19] MEDS: HEPARIN SOD (PORCINE) 5000 UNITS/ML VIAL SQ SCH ×2 (09:13→20:56)
[2016-08-19] MEDS ORDERED: ASPI325T PO (10:21)
[2016-08-19] MEDS ORDERED: LEVE1INJ5 SC (10:21)
[2016-08-19] MEDS ORDERED: LOVA1CAP17 PO (10:21)
[2016-08-19] MEDS ORDERED: FURO20TA2 PO (10:21)
[2016-08-19] MEDS ORDERED: AMLO10TA2 PO (10:21)
[2016-08-19] MEDS ORDERED: VITA-122 PO (10:21)
[2016-08-19] MEDS ORDERED: PLAV75TA38 PO (10:21)
[2016-08-19] MEDS ORDERED: CALC1CAP PO (10:21)
[2016-08-19] MEDS ORDERED: ISOS60TA2 PO (10:21)
[2016-08-19] MEDS ORDERED: OMEP40CA2 PO (10:21)
[2016-08-19] MEDS ORDERED: LOSA100T36 PO (10:21)
[2016-08-19] MEDS ORDERED: ATOR1TAB18 PO (10:22)
[2016-08-19] MEDS ORDERED: HEPARIN 1,000 UNITS/ML 10ML VIAL (FOR RADIOLOGY& DIALYSIS ONLY) IV ONE (11:30)
[2016-08-19 14:45] VITALS: BP 138/68
[2016-08-19] MEDS: CALCIUM ACETATE 667 MG GELCAP PO SCH ×2 (15:56→20:55)
[2016-08-19] MEDS: LOSARTAN 50 MG TAB PO SCH (15:57)
[2016-08-19] MEDS: FUROSEMIDE 20 MG TAB PO SCH (15:57)
[2016-08-19] MEDS: amLODIPine 10 MG TAB PO SCH (15:58)
[2016-08-19] MEDS: OMEPRAZOLE 20 MG CAP PO SCH (15:58)
[2016-08-19] MEDS: ASPIRIN 325 MG TAB PO SCH (15:58)
[2016-08-19] MEDS: ISOSORBIDE MON. (IMDUR) 60 MG XR TAB PO SCH (15:59)
[2016-08-19] MEDS: VITAMIN D 1,000 INTERNATIONAL UNITS TABLET PO SCH (15:59)
--- NOTE | 2016-08-19 18:18 | CR ---
DATE OF CONSULTATION: 08/19/2016 REQUESTING PHYSICIAN: Dr. Charlie Win CONSULTING PHYSICIAN: Dr. Zepeda REASON FOR CONSULTATION: Management of end-stage renal disease, hemodialysis, and hyperkalemia. CHIEF COMPLAINT: Patient presented to the emergency room last night because of chest pain and shortness of breath. HISTORY OF PRESENT ILLNESS: Antonio Rivera is a 56-year-old male with a past medical history of end-stage renal disease, on hemodialysis every Thursday, , Thursday. He presented to the emergency room yesterday with intermittent, nonradiating, 8/10 intensity chest pain. There was no associated nausea or vomiting. There was no sweating. The patient's last hemodialysis session was on Thursday. Today is patient's regular day of dialysis. Patient was also found to have a potassium of 6 and a sodium of 120. Patient was given Kayexalate last night because of hyponatremia. He was also given one dose of Samsca. Nephrology service was called for further help in the management of end-stage renal disease and hemodialysis. PAST MEDICAL HISTORY: 1. End-stage renal disease, on hemodialysis every Thursday, , Thursday. 2. Anemia and end-stage renal disease. 3. Hypertension. 4. Coronary artery disease. 5. Congestive heart failure with a history of left ventricular ejection fraction of around 30-35%. 6. History of paroxysmal atrial fibrillation. 7. Chronic obstructive pulmonary disease (COPD). 8. Diabetes mellitus, type 2. 9. Peripheral vascular disease. 10. Gastroesophageal reflux disease. PAST SURGICAL HISTORY: 1. History of coronary artery bypass grafting. 2. History of angioplasty and coronary stents. 3. Status post left forearm arteriovenous (AV) fistula placement. 4. Status post appendectomy. 5. History of right big toe amputation. 6. History of carotid angioplasty. ALLERGIES: Patient is allergic to VARENICLINE, tape, PREGABALIN, and mushrooms. FAMILY HISTORY: No significant family history of end-stage renal disease requiring hemodialysis. Patient's father had congestive heart failure (CHF) and coronary artery disease. Mother had diabetes and COPD. SOCIAL HISTORY: Patient used to heavily smoke, but he reports that he has cut down the smoking now. He denies any illicit drug abuse or alcohol abuse. REVIEW OF SYSTEMS: CONSTITUTIONAL: Patient denies any fevers, chills, or rigors. EYES: He denies any blurry vision or double vision. ENT: He denies any dysphagia or odynophagia. CARDIOVASCULAR: Patient reports chest pain, almost 8/10 intensity. He also reports lower extremity edema. PULMONARY: Patient reports history of COPD and cough. GASTROINTESTINAL: He denies any nausea, vomiting, pain in abdomen, constipation. GENITOURINARY: He denies any dysuria or hematuria. MUSCULOSKELETAL: He denies any muscle aches or pains. ENDOCRINE: Patient reports history of diabetes and secondary hyperparathyroidism. HEMATOLOGICAL/ONCOLOGICAL: Patient denies any easy bruising or bleeding. CENTRAL NERVOUS SYSTEM: He denies any syncope or cerebrovascular accident (CVA). PSYCHIATRIC: He denies any depression or anxiety. SKIN: Patient reports right-sided diabetic foot ulcer. All other review of systems is negative. PHYSICAL EXAMINATION: GENERAL: Patient is awake, alert, oriented times three, lying in bed, getting hemodialysis done when I examine the patient. VITAL SIGNS: Temperature is 97.9 degrees Fahrenheit, blood pressure is 125/60, pulse is 85, respiratory rate of 18, saturating 97% on room air. HEAD AND NECK: Extraocular muscles intact. Pupils equally round and reactive to light. Mucous membranes are moist. Neck is supple. There is mildly elevated jugular venous distention (JVD). CARDIOVASCULAR: S1, S2, regular rate. No murmur, rub, or gallop. RESPIRATORY: Decreased breath sounds at the bases. Positive bilateral expiratory rhonchi. Otherwise bilateral equal air entry. ABDOMEN: Abdomen is soft. Positive bowel sounds. Nontender. No ascites. No organomegaly. EXTREMITIES: No clubbing or cyanosis. Trace edema of the bilateral lower extremities. Patient has a right-sided diabetic foot ulcer, which is covered with a dressing, and right big toe is amputated. CENTRAL NERVOUS SYSTEM: No focal neurological deficit. Power is 5/5 in all extremities. AV ACCESS: Patient has a left forearm AV fistula with positive thrill and bruit. PSYCHIATRIC: Normal mood and affect. LABORATORY REVIEW: CBC showed a WBC 6.1, hemoglobin 10.7, platelets are 207. BMP showed sodium 124, potassium 5.6, chloride 87, bicarbonate 22, BUN is 46, creatinine is 6.3, magnesium 1.7. Troponin 0.05. CK-MB is 4.3. IMAGING: A chest x-ray done on August 18 showed cardiomegaly. CURRENT INPATIENT MEDICATIONS: Patient's inpatient medications include: - - albuterol nebulizations - amlodipine 10 mg daily - aspirin 325 mg by mouth daily - atorvastatin 80 mg daily - Phos-Lo 2.6 gram by mouth three times a day - Plavix 75 mg daily - Lasix 80 mg by mouth daily - heparin 50,000 units subcutaneous every 12 hours - isosorbide 60 mg by mouth daily - losartan 100 mg by mouth daily - Prilosec 40 mg by mouth daily - Kayexalate 30 gram by mouth times two dose was given - tolvaptan 15 mg by mouth every 24 hours - vitamin D 1000 units by mouth daily ASSESSMENT: A 56-year-old male with past medical history of end-stage renal disease, on hemodialysis every Thursday, , Thursday, history of systolic congestive heart failure, hypertension, admitted at this time with chest pain, missing hemodialysis, hyperkalemia, and hyponatremia. PLAN: 1. Chest pain. It is most likely secondary to fluid overload and noncompliance with fluid restriction. Patient is being emergently dialyzed, which will help with the improvement of chest pain. Patient also has systolic congestive heart failure and coronary artery disease. Continue aspirin, Plavix, and statins as per primary team. Troponins are being trended, and they are stable at this time. 2. End-stage renal disease, on hemodialysis. Today is patient's regular day of dialysis. Patient will be dialyzed according to his regular schedule. 3. Hyperkalemia. Patient was already given Kayexalate. Potassium is still high. Patient will be dialyzed with a 1K bath today. Potassium is expected to improve after dialysis. 4. Hyponatremia. Hyponatremia secondary to hypervolemia and noncompliance with fluid restriction. Samsca was started by the admitting hospitalist overnight; however, I shall try to manage the hyponatremia with hemodialysis and ultrafiltration. Samsca was stopped. 5. Chronic kidney disease, mineral bone disease. Continue current dose of Phos-Lo with meals. 6. Hypertension. Blood pressure is optimized at this time. Continue current dose of amlodipine 10 mg by mouth daily, isosorbide mononitrate 60 mg by mouth daily, losartan 100 mg by mouth daily. 7. COPD and active smoking. Patient has rhonchi on clinical exam. Hemodialysis and ultrafiltration would also help with the shortness of breath. Continue the nebulizations at this time. Thank you for involving us in the care of this patient. We shall be happy to follow the patient along with you tomorrow morning. Urgent hemodialysis was arranged, and patient is being dialyzed at this time.
[2016-08-19 20:00] VITALS: BP 163/67
[2016-08-19] MEDS ORDERED: SLF 3 ML SYR IV PRN (20:45)
[2016-08-19] MEDS: SLF 3 ML SYR IV SCH (20:56)
[2016-08-19] MEDS ORDERED: ATORVASTATIN 20 MG TAB PO SCH (21:00)
[2016-08-19 23:59] VITALS: BP 140/64
[2016-08-20 04:00] VITALS: BP 135/63
[2016-08-20] MEDS: SLF 3 ML SYR IV SCH (04:47)
[2016-08-20 05:21] LABS: MEAN CORPUSCULAR HEMOGLOBIN 33.7 pg (27.0-33.0); MEAN CORPUSCULAR HGB CONC 34.2 g/dl (32.0-36.5); MEAN CORPUSCULAR VOLUME 98.6 fl (80.0-96.0); RED CELL DISTRIBUTION WIDTH 15.9 % (11.5-14.5); WHITE BLOOD COUNT 5.9 K/mm3 (4.0-10.0)
[2016-08-20 05:38] LABS: ALBUMIN 3.3 GM/DL (3.2-5.2); ALBUMIN/GLOBULIN RATIO 0.92 (1.00-1.93); CALCIUM LEVEL 8.7 MG/DL (8.5-10.1); CREATININE FOR GFR 4.27 MG/DL (0.70-1.30); GLOMERULAR FILTRATION RATE 15.3 (>56); POTASSIUM SERUM 4.7 MEQ/L (3.5-5.1); TOTAL PROTEIN 6.9 GM/DL (6.4-8.2)
[2016-08-20 07:30] VITALS: BP 153/72
[2016-08-20] MEDS: OMEPRAZOLE 20 MG CAP PO SCH (08:21)
[2016-08-20] MEDS: HEPARIN SOD (PORCINE) 5000 UNITS/ML VIAL SQ SCH (08:21)
[2016-08-20] MEDS: CALCIUM ACETATE 667 MG GELCAP PO SCH (08:21)
[2016-08-20] MEDS: CLOPIDOGREL 75 MG TAB PO SCH (08:22)
[2016-08-20] MEDS: ASPIRIN 325 MG TAB PO SCH (08:22)
[2016-08-20] MEDS: VITAMIN D 1,000 INTERNATIONAL UNITS TABLET PO SCH (08:22)
[2016-08-20 08:23] VITALS: BP 153/72
[2016-08-20] MEDS: FUROSEMIDE 20 MG TAB PO SCH (08:23)
[2016-08-20] MEDS: LOSARTAN 50 MG TAB PO SCH (08:23)
[2016-08-20] MEDS: ISOSORBIDE MON. (IMDUR) 60 MG XR TAB PO SCH (08:24)
[2016-08-20] MEDS: amLODIPine 10 MG TAB PO SCH (08:24)
--- NOTE | 2016-08-21 20:53 | DSES ---
DATE OF ADMISSION: 08/19/2016 DATE OF DISCHARGE: 08/20/2016 DISCHARGE DIAGNOSIS: Decompensated systolic heart failure. SECONDARY DIAGNOSES: 1. Fluid overload. 2. End stage renal disease. 3. Hypertension. 4. Coronary artery disease. 5. Paroxysmal atrial fibrillation. 6. Chronic obstructive pulmonary disease (COPD). 7. Type 2 diabetes. 8. Peripheral vascular disease. 9. Gastroesophageal reflux disease (GERD). HOSPITAL COURSE: The patient is a 56-year-old man with a long history of medication noncompliance, reportedly underwent coronary stenting within the last one month. He presented to the emergency room on 08/19/2016 with chest pain and shortness of breath. Initially, in the emergency room, there was concern for potentially an occluded stent; however, his cardiac enzymes were negative and his vital signs were fairly stable. He reportedly had been nonadherent with dietary restrictions. He was seen in consultation by Dr. Zepeda of nephrology. The patient was admitted to the progressive care unit (PCU) and found to be in fluid overload. He did undergo ultrafiltration on a regular hemodialysis day emergently. Subsequently, his symptoms did resolve. The patient was also found to be severely hyperkalemic and hyponatremic with a potassium of 6 and hyponatremia with a sodium of 120, which did improve with hemodialysis. OBJECTIVE: This morning, the patient tells me that his pain has completely resolved and he wants to go home. He has no complaints. No chest pain, shortness of breath. VITAL SIGNS: Temperature 98.3, pulse 83, respiratory rate 20, blood pressure 153/72, oxygen saturation 96% on room air. GENERAL: He is a disheveled, man lying in bed. He is in no distress, but he is argumentative and combative verbally. HEENT: Malodorous. Poor dentition. Moist mucous membranes. No appreciable elevation of central venous pressure at this time. CARDIOVASCULAR EXAM: S1, S2 regular. RESPIRATORY EXAM: Clear. ABDOMINAL EXAM: Obese. EXTREMITIES: No clubbing, cyanosis or edema. LABORATORY STUDIES: WBC 5.9, hemoglobin 10.6, hematocrit 31.1, stable. Platelet count 212. Chemistry panel: Sodium 128, up from 120. Potassium 4.7, chloride 94, bicarbonate 25, BUN 28, creatinine 4.2. No new imaging. ASSESSMENT AND PLAN: This is a 56-year-old man with resolved decompensated systolic heart failure. 1. Decompensated systolic heart failure. The patient is status post hemodialysis with ultrafiltration. He is much improved at this time. He is continued on aspirin, Lasix, losartan, isosorbide mononitrate. 2. End stage renal disease. Dr. Hilliard help is greatly appreciated. The patient is continued on PhosLo.Tolvaptan was discontinued. He received one dose of this. 3. Hyponatremia secondary to hypervolemia. Improved with dialysis. The patient is scheduled for regular hemodialysis tomorrow. He assures me that he will followup with this. 4. Hypertension. The patient is continued on amlodipine, isosorbide mononitrate, losartan. 5. Vitamin D deficiency. He is continued on supplementation. 6. Gastroesophageal reflux disease (GERD). He is continued on Prilosec. 7. Coronary artery disease. The patient is continued on aspirin, statin and curiously he is not on a beta lisette. We will defer to his outpatient providers. He did have a stent placement last month. He will require close followup with his software support technician. 8. Chronic obstructive pulmonary disease (COPD). He is at his baseline respiratory status and post hemodialysis. He does not require any oxygen. He is continued with the nebulizer treatments as well in the hospital. 9. Medical noncompliance. The patient has a history of skipping dialysis and not being compliant with dietary restrictions and missing followup appointments. Strict adherence to medical therapy has been advised. He has been warned that if he continues his current behavior that it will shorten his life significantly. He demonstrates understanding of this. He assures me that he will take better care of himself moving ahead in the future. DISPOSITION: The patient is being discharged home to the care of his family. He is to followup with his regular hemodialysis tomorrow and also with his primary care provider within 7 days. Activity and diet are both as to prior to admission. He is to followup with his software support technician as scheduled. MEDICATIONS: At the time of discharge: - Norvasc 10 mg daily - aspirin 325 mg daily - atorvastatin 80 mg at night - calcium acetate 2668 mg three times a day - vitamin D3 1000 units daily - Plavix 75 mg daily - Lasix 80 mg daily - Levemir 12 units daily - isosorbide mononitrate 60 mg daily - losartan 100 mg daily - [place] 3 fatty acid one capsule twice a day - omeprazole 40 mg daily Greater than 40 minutes spent on organizing disposition. No medication changes during this stay. His medications are as per his last discharge from [facility]. Please see that discharge summary for more details of medications. MTDD
== END 2016-08-20 10:20 | disposition home health service (06) | DRG 640 ==
LOC: EDBD 19:59 → M ED 21:08 → M ED INP 08-19 04:21 → M PCU 08-19 14:46
PROVIDERS: ADMIT Internal Medicine; ATTEND Internal Medicine
PROC: 5A1D00Z (ICD-10-PCS; principal; 2016-08-19)
DX: E87.1 Hypo-osmolality and hyponatremia (principal); N18.6 End stage renal disease; I50.23 Acute on chronic systolic (congestive) heart failure; I13.2 Hypertensive heart and chronic kidney disease with heart failure and with stage 5 chronic kidney disease, or end stage renal disease; E87.5 Hyperkalemia; E87.70 Fluid overload, unspecified; I25.10 Atherosclerotic heart disease of native coronary artery without angina pectoris; I48.0 Paroxysmal atrial fibrillation; J44.9 Chronic obstructive pulmonary disease, unspecified; E11.9 Type 2 diabetes mellitus without complications; I73.9 Peripheral vascular disease, unspecified; K21.9 Gastro-esophageal reflux disease without esophagitis; Z91.14 Patient's other noncompliance with medication regimen; Z95.820 Peripheral vascular angioplasty status with implants and grafts; Z91.19 Patient's noncompliance with other medical treatment and regimen; Z79.4 Long term (current) use of insulin; Z79.02 Long term (current) use of antithrombotics/antiplatelets; Z79.899 Other long term (current) drug therapy; Z79.01 Long term (current) use of anticoagulants; Z88.8 Allergy status to other drugs, medicaments and biological substances; Z91.018 Allergy to other foods; Z91.048 Other nonmedicinal substance allergy status; Z99.2 Dependence on renal dialysis; Z95.828 Presence of other vascular implants and grafts; Z95.5 Presence of coronary angioplasty implant and graft; Z82.49 Family history of ischemic heart disease and other diseases of the circulatory system; Z83.3 Family history of diabetes mellitus; Z83.6 Family history of other diseases of the respiratory system; Z72.0 Tobacco use

== ENCOUNTER 2016-09-01 14:26 | Emergency (ER) | payer MEDICARE, MEDICAID ==
[~2016-09-01] VITALS: Ht 190.5 cm; Wt 93.1 kg
[~2016-09-01 14:26] MED LIST changes: -ATOR40TA PO; +ATOR40TA75 PO; +ATOR80TA59 PO; +COUM1TAB17 PO; -FURO1TAB15 PO; +FURO80TA2 PO; +LEVA1TAB2 PO; -LEVA500T PO; +LEVE1INJ5 SC; -METO50TA2 PO; +METO50TA7 PO; +MINO2.5T PO; -MINO25TA PO; +NITR4TASL SL; +PLAV1TAB2 PO; -PROA1AER INH; +PROAAER10 INH; +TRIC145T22 PO; +VITA-122 PO
[2016-09-01] MEDS ORDERED: ASPIRIN 81 MG CHEW TABLET PO ONE (15:00)
[2016-09-01] MEDS ORDERED: NITROGLYCERIN 0.4 MG SUBL TABLET SL PRN (15:00)
[2016-09-01 15:14] LABS: BASO % 0.4 % (0.0-1.0); EOS # 0.1 K/mm3 (0.0-0.50); EOS % 1.7 % (0.0-3.0); LARGE UNSTAINED CELL # 0.1 K/mm3 (0.0-0.4); LYMPH # 1.1 K/mm3 (1.5-4.5); LYMPH % 13.4 % (24.0-44.0); MEAN CORPUSCULAR HEMOGLOBIN 33.5 pg (27.0-33.0); MEAN CORPUSCULAR VOLUME 98.5 fl (80.0-96.0); MONO # 0.6 K/mm3 (0.0-0.8); NEUTROPHILS # 5.9 K/mm3 (1.8-7.7); NEUTROPHILS % 75.4 % (36.0-66.0); PLATELET COUNT, AUTOMATED 206 k/mm3 (150-450); WHITE BLOOD COUNT 7.8 K/mm3 (4.0-10.0)
[2016-09-01 15:19] VITALS: BP 163/102
[2016-09-01 15:30] LABS: ALBUMIN 3.9 GM/DL (3.2-5.2); ALBUMIN/GLOBULIN RATIO 1.05 (1.00-1.93); BILIRUBIN,DIRECT 0.9 MG/DL (0.0-0.2); BILIRUBIN,TOTAL 1.6 MG/DL (0.2-1.0); CALCIUM LEVEL 9.8 MG/DL (8.5-10.1); CREATININE FOR GFR 5.97 MG/DL (0.70-1.30); GLOMERULAR FILTRATION RATE 10.4 (>56); TOTAL PROTEIN 7.6 GM/DL (6.4-8.2)
[2016-09-01 15:31] LABS: POTASSIUM SERUM 5.9 MEQ/L (3.5-5.1)
[2016-09-01 15:33] LABS: INR 1.12
--- NOTE | 2016-09-01 15:52 | REP ---
Clinical: Chest pain. Technique: PA and lateral. Comparison: 08/18/2016. Findings: Mediastinum and cardiac silhouette are stable. Subtle infrahilar opacities may reflect bronchitis and atelectasis. Correlation is recommended. No focal consolidation, effusion, or pneumothorax. Skeletal structures are intact. Evidence of prior sternotomy and CABG. Impression: Subtle infrahilar opacities may reflect bronchitis and/or atelectasis. Correlation is recommended. Signed by Minesh Meier MD 09/01/2016 03:43 P
[2016-09-01] MEDS ORDERED: MOXIFLOXACIN 400 MG TAB PO ONE (16:15)
[2016-09-01] MEDS ORDERED: IPRATROPIUM 0.5MG/ALBUTEROL 2.5MG INH SOL UD 3ML (DUONEB)(J7620) NEB ONE (16:15)
[2016-09-01] MEDS ORDERED: AVEL400T PO (17:29)
[2016-09-01] MEDS ORDERED: ALBU17IN2 INH (17:29)
[2016-09-01 17:33] VITALS: BP 138/82
--- NOTE | 2016-09-01 20:07 | ECGEPIP ---
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
== END 2016-09-01 17:46 | disposition home or self-care (01) ==
LOC: M ED 15:33
DX: J44.0 Chronic obstructive pulmonary disease with (acute) lower respiratory infection (principal); E11.9 Type 2 diabetes mellitus without complications; F17.210 Nicotine dependence, cigarettes, uncomplicated; I10 Essential (primary) hypertension; Z95.1 Presence of aortocoronary bypass graft; Z86.73 Personal history of transient ischemic attack (TIA), and cerebral infarction without residual deficits

== ENCOUNTER 2016-09-04 18:53 | Emergency (ER) | payer MEDICARE, MEDICAID ==
[~2016-09-04] VITALS: Ht 190.5 cm; Wt 44.3 kg
[~2016-09-04 18:53] MED LIST changes: +AVEL400T PO
[2016-09-04] MEDS ORDERED: NORCO, ANEXSIA 5/325MG TABLET (HYDROcodone/ACETAMINOPHEN) PO ONE (22:30)
--- NOTE | 2016-09-04 23:50 | REPUSA ---
CT of the lumbar spine without contrast Clinical history: Pain. Trauma. Technique: Multiple axial CT images were obtained through the lumbar spine without administration of contrast. Coronal and sagittal 3-D reconstructed images were also obtained. Findings: The lumbar vertebral bodies are in satisfactory positioning and alignment. No fractures or dislocatio ns are demonstrated. Intervertebral disc spaces are severely narrowed at L5/S1 and L2/L3, with scler osis and osteophytic changes. There is a large disc bulge at L4/L5. Moderate disc bulge is seen at L 2/L3 and L3/L4. There is no evidence of facet subluxation. The neural foramen appear grossly patent. The spinal canal demonstrates normal caliber and contour without evidence of spinal stenosis. The ida rounding soft tissues are within normal limits. Impression: 1. No acute fracture or traumatic injury. 2. Multilevel degenerative disc disease as described with disc osteophyte complexes. Moderate disc bu lges are noted at L2/L3, L3/L4, and L4/L5. No evidence of central canal stenosis.
[2016-09-05 00:26] VITALS: BP 168/86
--- NOTE | 2016-09-05 08:09 | REP ---
Lumbar spine two views AP and lateral projections: The patient is unable to lay on his back and the images are performed. The patient sitting on side of bed. Suboptimal study. Comparison is 12/30/2015. There is mild scoliosis convex right at the thoracolumbar junction. This could be positional. Vertebral body heights and alignment are normal. There is advanced degenerative disc disease with marked disc space narrowing and disc vacuum phenomenon at L2-3 and L5 S1. This is unchanged. There is moderate degenerative disc disease at L4-5. This is also unchanged. There is calcified vascular atheroma. The abdominal aorta. Impression: Mild scoliosis. Degenerative disc disease as described. Suboptimal study. Signed by Car Glover MD 09/05/2016 08:00 A
--- NOTE | 2016-09-05 08:16 | REP ---
Clinical: Trauma. Technique: Frontal view of the chest with multiple views of the left hemithorax. Findings: Frontal view of the chest demonstrates cardiomegaly and subtle bilateral opacities. No effusion, or pneumothorax. Multiple views of the left hemithorax demonstrates no acute rib fracture/injury or pathology. Impression: Cardiomegaly and lower lobe opacities suggested. No obvious rib fracture. Signed by Minesh Meier MD 09/05/2016 08:07 A
--- NOTE | 2016-09-06 18:20 | ED PDOC ---
Post-Departure Follow-Up radiology report faxed to Elissa Ralph MD Sep 06, 2016 18:19
== END 2016-09-05 00:33 | disposition home or self-care (01) ==
LOC: EDBD 18:53 → M ED 20:18
DX: S20.222A Contusion of left back wall of thorax, initial encounter (principal); W01.198A Fall on same level from slipping, tripping and stumbling with subsequent striking against other object, initial encounter; Y92.89 Other specified places as the place of occurrence of the external cause; Y93.01 Activity, walking, marching and hiking; Y99.9 Unspecified external cause status

== ENCOUNTER → 2016-09-05 | Outpatient (CLI) | payer MEDICARE, MEDICAID ==
[~2016-09-05] MED LIST changes: +AMOX875T PO; +CEFD1CAP8 PO; +CINA30TA; +CYCL10TA PO; +FISH1000 PO; +LEVA1TAB PO; +MOXI1TAB PO; +MUCI600T37 PO; +PERC5TAB12 PO; +PRED50TA PO; +SANT250O8 TOP
--- NOTE | 2016-09-05 14:14 | REP ---
MRI RIGHT FOOT WITHOUT CONTRAST: HISTORY: Type 1 diabetes with foot ulcer. Comparison radiographs are from July 02, 2016. TECHNIQUE: Axial, coronal, and sagittal imaging planes are utilized. T1- and T2-weighted scans were obtained with and without fat saturation. MRI FINDINGS: The patient is status post amputation of the great toe across the base of the proximal phalanx. Cortical and medullary bone signal intensity are otherwise normal in the phalanges, metatarsals, and tarsal bones of the right foot. There is some diffuse soft tissue swelling throughout the forefoot on T2-weighted scans. There is no evidence of soft tissue abscess. There is no evidence to suggest osteomyelitis. A dressing is seen over the lateral aspect of the right foot. IMPRESSION: No visible soft tissue abscess or evidence of osteomyelitis seen. Signed by Yeison Krishnan MD 09/05/2016 05:13 P
== END ==
LOC: M RAD 08:56
PROVIDERS: ATTEND Surgery
DX: E10.621 Type 1 diabetes mellitus with foot ulcer (principal)

== ENCOUNTER 2016-09-08 19:58 | Inpatient (IN) | payer MEDICARE, MEDICAID ==
[~2016-09-08] VITALS: Ht 180.3 cm; Wt 95.0 kg
[~2016-09-08 19:58] MED LIST changes: -AMOX875T PO; -CEFD1CAP8 PO; -CINA30TA; -CYCL10TA PO; -FISH1000 PO; -ISOVUE-370 76% 100ML VIAL (Q9967) As Ordered ONE; -LEVA1TAB PO; -MOXI1TAB PO; -MUCI600T37 PO; -PERC5TAB12 PO; -PRED50TA PO; -SANT250O8 TOP
[2016-09-08] MEDS ORDERED: CLEO150C PO (20:12)
[2016-09-08] MEDS ORDERED: AMOX875T PO (20:12)
[2016-09-08] MEDS ORDERED: MINO2.5T PO (20:12)
[2016-09-08] MEDS ORDERED: PRED20TA PO (20:12)
[2016-09-08] MEDS ORDERED: ASPIRIN 81 MG CHEW TABLET PO ONE (21:45)
[2016-09-08 21:51] LABS: BASO # 0.1 K/mm3 (0.0-0.2); BASO % 0.7 % (0.0-1.0); EOS # 0.3 K/mm3 (0.0-0.50); LARGE UNSTAINED CELL # 0.1 K/mm3 (0.0-0.4); LARGE UNSTAINED CELL % 0.9 % (0.0-4.0); LYMPH # 1.1 K/mm3 (1.5-4.5); LYMPH % 11.6 % (24.0-44.0); MEAN CORPUSCULAR HEMOGLOBIN 31.8 pg (27.0-33.0); MEAN CORPUSCULAR HGB CONC 31.6 g/dl (32.0-36.5); MEAN CORPUSCULAR VOLUME 100.7 fl (80.0-96.0); MONO # 0.5 K/mm3 (0.0-0.8); MONO % 5.8 % (0.0-5.0); NEUTROPHILS # 7.1 K/mm3 (1.8-7.7); PLATELET COUNT, AUTOMATED 190 k/mm3 (150-450); RED CELL DISTRIBUTION WIDTH 17.3 % (11.5-14.5); WHITE BLOOD COUNT 9.1 K/mm3 (4.0-10.0)
[2016-09-08 22:02] LABS: INR 1.17
[2016-09-08 22:14] LABS: CALCIUM LEVEL 9.3 MG/DL (8.5-10.1); CREATININE FOR GFR 5.61 MG/DL (0.70-1.30); GLOMERULAR FILTRATION RATE 11.2 (>56)
[2016-09-08 22:28] LABS: POTASSIUM SERUM 5.7 MEQ/L (3.5-5.1)
--- NOTE | 2016-09-08 22:40 | REPUSA ---
Clinical history: Cough. Comparison: None. Findings: Frontal and lateral views of the chest were obtained. The mediastinum and cardiac silhouett e are within normal limits. There is a left lower lobe infiltrate. No pleural effusion or pneumothora x is seen. The osseous structures and soft tissues are unremarkable. Impression: Left lower lobe infiltrate.
[2016-09-08] MEDS ORDERED: VANCOMYCIN HCL 1,000 MG, VIAL MATE ADAPTER 1 EACH in D5W 250 ML IV ONE (23:45)
[2016-09-08] MEDS ORDERED: PIPERACILLIN/TAZOBACTAM SOD 2.25 GM in D5W MINI-BAG PLUS 50 ML IV ONE (23:45)
[2016-09-09] MEDS ORDERED: MOXI1TAB PO (00:10)
[2016-09-09] MEDS ORDERED: SANT250O8 TOP (00:10)
[2016-09-09] MEDS ORDERED: FISH1000 PO (00:10)
[2016-09-09] MEDS ORDERED: FOSR1000 PO (00:10)
[2016-09-09] MEDS ORDERED: PROAAER10 INH (00:10)
--- NOTE | 2016-09-09 00:50 | REPUSA ---
CLINICAL HISTORY: Edema. COMMENTS: Real time sonography with duplex doppler of the extremities bilaterally was performed with attention to the major deep venous structures. Evaluation reveals the common femoral, superficial femoral and popliteal veins bilaterally to be comp letely compressible without intraluminal thrombus. There is normal spontaneous phasic flow and augmen tation in all deep veins. The greater saphenous/common femoral vein junctions are patent bilaterally. IMPRESSION: No evidence of DVT in the lower extremities bilaterally. Thank you for your kind referral of this patient.
[2016-09-09] MEDS ORDERED: LEVEMIR (INSULIN DETEMIR) 1 UNITS/0.01ML SC ONE (01:00)
[2016-09-09 02:03] VITALS: BP 173/97
[2016-09-09] MEDS: ACETAMINOPHEN TAB 650MG DOSE (2X325MG) PO PRN ×2 (02:43→10:31)
[2016-09-09] MEDS: OMEGA-3 1050MG CAPSULE PO SCH ×3 (02:48→21:42)
[2016-09-09] MEDS: ATORVASTATIN 20 MG TAB PO SCH ×2 (02:48→21:42)
[2016-09-09 05:54] LABS: VANCOMYCIN RANDOM 13.2 UG/ML
[2016-09-09 06:00] VITALS: BP 190/96
[2016-09-09] MEDS ORDERED: MORPHINE 2 MG/ML 1ML SYRINGE IV ONE (06:30)
[2016-09-09] MEDS: HEPARIN SOD (PORCINE) 5000 UNITS/ML VIAL SC SCH ×3 (06:36→21:42)
[2016-09-09] MEDS: HumaLOG INSULIN (NovoLOG) PER UNIT SC SCH ×4 (07:30→20:51)
[2016-09-09] MEDS ORDERED: GLUCAGON FOR INJ 1 MG VIAL (J1610) SC PRN (07:30)
[2016-09-09] MEDS ORDERED: DEXTROSE 50% 50 ML SYRINGE IV PRN (07:30)
[2016-09-09] MEDS ORDERED: GLUCOSE 4 GM CHEW TABLET PO PRN (07:30)
--- NOTE | 2016-09-09 07:34 | HPEPDOC ---
General Date of Admission Sep 08, 2016 at 23:00 Primary Care Physician: Phan Lancaster MD Chief Complaint The patient is a 56-year-old male admitted with a reason for visit of Chest Pain /Elevated D-Dimer. Source: Patient Exam Limitations: No limitations History of Present Illness This is a 56yo male with past medical history of htn, CAD s/p VA with recent PCI and stenting few months ago, anemia of chronic dz, esrd/hd (//Thu), severe systolic HF (30%), chronic PAF, copd, DM2, PAD who presents with pleuritic chest pain. Pt reports pain started few days ago, R parasternal, worse with deep inspiration and cough. Pt denies n/v, fever, chills, drenching sweats, sick contacts, abd pain, diarrhea, unilateral LE swelling, or recent trauma to LE. Pt did report recent fall where he struck his back, leading to severe pain over his L paraspinal lower back. Upon presentation, pt had labs and imaging. Initial troponin was neg, with BNP of >5000 and an elevated d- dimer. Additionally, CXR obtained in ED showed evidence of LLL infiltrate. Home Medications Scheduled Aspirin (Aspirin) 325 Mg Tab, 325 MG PO DAILY, (Reported) Atorvastatin Calcium (Atorvastatin Calcium) 80 Mg Tab, 80 MG PO QHS, (Reported) Calcium Acetate (Calcium Acetate) 667 Mg Cap, 2,668 MG PO WM, (Reported) Cholecalciferol (Vitamin D3) 1,000 Unit Tab, 2,000 UNIT PO DAILY, (Reported) Clopidogrel Bisulfate (Plavix) 75 Mg Tab, 75 MG PO DAILY, (Reported) Collagenase (Santyl) 250 Unit/Gm Oin, 1 DOSE TOP 3XW, (Reported) USES ON HAND IN MORNING ON TUESDAYS, THURSDAYS AND SATURDAYS Fish Oil (Fish Oil) 1,000 Mg Cap, 1,000 MG PO BID, (Reported) Insulin Detemir (Levemir Flextouch) 100 Unit/Ml Inj, 12 UNIT SC DAILY, (Reported ) Isosorbide Mononitrate (Isosorbide Mononitrate ER) 60 Mg Tab, 60 MG PO DAILY, ( Reported) Lanthanum Carbonate (Fosrenol) 1,000 Mg Chw, 1,000 MG PO WM, (Reported) Minoxidil (Minoxidil) 2.5 Mg Tab, 2.5 MG PO DAILY, (Reported) Moxifloxacin Hydrochloride (Moxifloxacin HCl) 400 Mg Tab, 400 MG PO DAILY, ( Reported) Omeprazole (Omeprazole) 40 Mg Cap, 40 MG PO DAILY, (Reported) Scheduled PRN Albuterol Sulfate (Proair Hfa) 108 Mcg/Act Aer, 2 PUFF INH Q4H PRN for SHORTNESS OF BREATH, (Reported) Allergies Coded Allergies: Pregabalin (Unverified Allergy, Intermediate, FEET SWELLING, 09/08/16) Mushroom (Unverified Allergy, Unknown, 09/08/16) TAPE (Unverified Allergy, Unknown, 09/08/16) Varenicline (Verified Allergy, Unknown, 09/08/16) Past Medical History Medical History 1. End-stage renal disease, on hemodialysis every Thursday, , Thursday. 2. Anemia and end-stage renal disease. 3. Hypertension. 4. Coronary artery disease. 5. Congestive heart failure with a history of left ventricular ejection fraction of around 30-35%. 6. History of paroxysmal atrial fibrillation. 7. Chronic obstructive pulmonary disease (COPD). 8. Diabetes mellitus, type 2. 9. Peripheral vascular disease. 10. Gastroesophageal reflux disease. Surgical History 1. History of coronary artery bypass grafting. 2. History of angioplasty and coronary stents. 3. Status post left forearm arteriovenous (AV) fistula placement. 4. Status post appendectomy. 5. History of right big toe amputation. 6. History of carotid angioplasty. Family History Significant Family History: Cancer, COPD, Diabetes, Heart disease, Hypertension , Lung disease, Hyperlipidemia Social History * Smoker: former Smoker Alcohol: Denies Drugs: denies Recent Travel/Sick Contacts: Denies: Recent travel, Recent sick contacts Psychosocial History: No pertinent psych hx Non-adherence to medical recommendations Review of Symptoms Constitutional: Reports: Fatigue, Denies: Chills, Fever, Night Sweats Eyes: Denies: Vision change ENT: Denies: Head Aches, Dysphagia, Sinus Congestion Skin: Denies: Rash Pulmonary: Reports: Dyspnea, Cough, Pleuritic Chest Pain Cardiovascular: Reports: Chest Pain, Denies: Palpitations, Orthopnea, Paroxysmal Noc. Dyspnea, Edema Gastrointestinal: Denies: Nausea, Vomiting, Abdominal Pain Hematologic: Denies: Bruising, Bleeding Excessively Endocrine: Denies: Polydipsia, Polyphagia, Polyuria Musculoskeletal: Reports: Back Pain (From recent fall with bruising-causing pain with inspiration), Denies: Neck Pain Neurological: Denies: Weakness, Numbness, Change in speech Psych: Reports: Mood Normal Physical Examination General Exam: Positive: Alert, No Acute Distress Eye Exam: Positive: Conjunctiva & lids normal, Negative: Sclera icteric ENT Exam: Positive: Atraumatic, Mucous membr. moist/pink Neck Exam: Positive: Supple, Lymphadenopathy Chest Exam: Positive: Clear to auscultation (Poor inspiratory effort secondary to pain) Heart Exam: Positive: Rate Normal, Regular Rhythm, Normal S1, Normal S2, Negative: Tachycardic, Bradycardic, Gallops, Murmurs, Rubs Abdomen Exam: Positive: Normal bowel sounds, Soft, Negative: BS Hyperactive, BS Hypoactive, Tenderness, Hepatospenomegaly Extremity Exam: Negative: Clubbing, Cyanosis, Tenderness Skin Exam: Positive: Nl turgor and temperature, Other skin issue (Bruise L paraspinal from mid spine down to just above L posterior iliac crest) Neuro Exam: Positive: Normal Gait, Normal Speech, Strength at 5/5 X4 ext, Cranial Nerves 3-12 NL Psych Exam: Positive: Mental status NL, Mood NL Vital Signs Vital Signs Date Time Temp Pulse Resp B/P (MAP) Pulse Ox O2 Delivery O2 Flow Rate FiO2 09/09/16 04:00 Room Air 09/09/16 02:03 97.6 83 24 173/97 (122) 98 Laboratory Data Labs 24H Laboratory Tests 2 09/08/16 21:35: White Blood Count 9.1, Red Blood Count 3.74L, Hemoglobin 11.9L, Hematocrit 37.7L , Mean Corpuscular Volume 100.7H, Mean Corpuscular Hemoglobin 31.8, Mean Corpuscular Hemoglobin Concent 31.6L, Red Cell Distribution Width 17.3H, Platelet Count 190, Neutrophils (%) (Auto) 78.0H, Lymphocytes (%) (Auto) 11.6L, Monocytes (%) (Auto) 5.8H, Eosinophils (%) (Auto) 3.0, Basophils (%) (Auto) 0.7 , Neutrophils # (Auto) 7.1, Lymphocytes # (Auto) 1.1L, Monocytes # (Auto) 0.5, Eosinophils # (Auto) 0.3, Basophils # (Auto) 0.1, Large Unclassified Cells % 0.9 , Large Unclassified Cells # 0.1, Prothrombin Time 15.1H, Prothromb Time International Ratio 1.17, Activated Partial Thromboplast Time 33.8, D-Dimer, Quantitative 2916.9H, Anion Gap 12, Glomerular Filtration Rate 11.2L, Blood Urea Nitrogen 35H, Creatinine 5.61H, Sodium Level 128L, Potassium Level 5.7H, Chloride Level 93L, Carbon Dioxide Level 23, Calcium Level 9.3, Total Creatine Kinase 183, Creatine Kinase MB 5.7H, Creatine Kinase MB Relative Index 3.11, Troponin I 0.06, B-Type Natriuretic Peptide > 5000H 09/09/16 01:33: Bedside Glucose (Misc Panel) 127H 09/09/16 03:36: Total Creatine Kinase 163, Creatine Kinase MB 6.2H, Creatine Kinase MB Relative Index 3.80, Troponin I 0.07 CBC/BMP Laboratory Tests 09/08/16 21:35 Red Blood Count 3.74 L, Mean Corpuscular Volume 100.7 H, Mean Corpuscular Hemoglobin 31.8, Mean Corpuscular Hemoglobin Concent 31.6 L, Red Cell Distribution Width 17.3 H, Neutrophils (%) (Auto) 78.0 H, Lymphocytes (%) (Auto ) 11.6 L, Monocytes (%) (Auto) 5.8 H, Eosinophils (%) (Auto) 3.0, Basophils (%) (Auto) 0.7, Neutrophils # (Auto) 7.1, Lymphocytes # (Auto) 1.1 L, Monocytes # ( Auto) 0.5, Eosinophils # (Auto) 0.3, Basophils # (Auto) 0.1, Calcium Level 9.3, Total Creatine Kinase 183 Microbiology Microbiology 09/08/16 Blood Culture, Received Pending 09/08/16 Blood Culture, Received Pending Assessment/Plan This is a 56yo male with past medical history of htn, CAD s/p VA with recent PCI and stenting few months ago, anemia of chronic dz, esrd/hd (T//Thu), severe systolic HF (30%), chronic PAF, copd, DM2, PAD who presents with pleuritic chest pain and LLL pna 1 dyspnea, pleuritic cp w/LLL on cxr Low suspicion of DVT/PE in this pt as he was until recently on AC for chronic PAF Elevated d-dimer in setting of infxn Continue iv abx-vanc/zosyn as pt recently hospitalized and had been on moxi recently Dose vanc to level Dose zosyn to esrd/hd Follow-up wbc trend, fever curve, cx's Checking LE dopplers If still suspicion of VTE with negative dopplers can obtain CTA prior to pt's scheduled HD 2 CAD s/p PCI with stent Continue DAPT with asa/plavix Continue statin Continue fish oil Continue ISMN 3 Malignant htn Continue minoxidil Continue ISMN Continue regular scheduled HD 4 Acute on chronic systolic hf Pt for HD Consult renal 5 Chronic PAF Pt recently on coumadin but stopped Will d/w cardiology, but likely due to non-adherence and recent cath with stent requiring plavix 6 DM2 Continue levemir FS with coverage 7 DVT prophylaxis heparin sq Plan / VTE VTE Prophylaxis Ordered?: Yes Amado Capps MD Sep 09, 2016 06:20
--- NOTE | 2016-09-09 07:36 | ECGEPIP ---
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
[2016-09-09 08:00] VITALS: BP 181/94
[2016-09-09] MEDS: LANTHANUM CARBONATE 500 MG CHEW TABLET PO SCH ×3 (08:38→17:54)
[2016-09-09] MEDS: ASPIRIN 325 MG TAB PO SCH (08:39)
[2016-09-09] MEDS: VITAMIN D 1,000 INTERNATIONAL UNITS TABLET PO SCH (08:39)
[2016-09-09] MEDS: OMEPRAZOLE 20 MG CAP PO SCH (08:39)
[2016-09-09] MEDS: CALCIUM ACETATE 667 MG GELCAP PO SCH ×3 (08:39→17:55)
[2016-09-09] MEDS: MINOXIDIL 2.5 MG TAB PO SCH (08:39)
[2016-09-09] MEDS: ISOSORBIDE MON. (IMDUR) 60 MG XR TAB PO SCH (08:40)
[2016-09-09] MEDS: CLOPIDOGREL 75 MG TAB PO SCH (08:40)
[2016-09-09] MEDS: PIPERACILLIN/TAZOBACTAM SOD 2.25 GM in D5W MINI-BAG PLUS 50 ML IV SCH ×2 (08:40→17:47)
[2016-09-09] MEDS: SANTYL OINT 30GM TOP SCH (08:41)
[2016-09-09 11:09] LABS: CALCIUM LEVEL 8.9 MG/DL (8.5-10.1); CREATININE FOR GFR 6.26 MG/DL (0.70-1.30); GLOMERULAR FILTRATION RATE 9.8 (>56); POTASSIUM SERUM 4.9 MEQ/L (3.5-5.1)
[2016-09-09 11:11] LABS: MEAN CORPUSCULAR HEMOGLOBIN 32.6 pg (27.0-33.0); MEAN CORPUSCULAR HGB CONC 31.9 g/dl (32.0-36.5); MEAN CORPUSCULAR VOLUME 102.3 fl (80.0-96.0); RED CELL DISTRIBUTION WIDTH 17.2 % (11.5-14.5); WHITE BLOOD COUNT 9.2 K/mm3 (4.0-10.0)
[2016-09-09] MEDS ORDERED: NALOXONE INJ 2 MG/2 ML SYRINGE (J2310) As Ordered ONE (12:50)
[2016-09-09 17:26] VITALS: BP 180/96
[2016-09-09] MEDS ORDERED: hydrALAZINE INJ 20 MG/ML VIAL IV ONE (17:45)
[2016-09-09] MEDS ORDERED: NALOXONE INJ 0.4 MG/1 ML VIAL (J2310) IV STA (18:05)
[2016-09-09 18:22] VITALS: BP 192/86
[2016-09-09] MEDS: VANCOMYCIN HCL 1,000 MG, VIAL MATE ADAPTER 1 EACH in D5W 250 ML IV SCH (18:37)
[2016-09-09] MEDS: CHECK TO SEE IF PATIENT IS RECEIVING DIALYSIS TODAY AND REFER TO THE VANCOMYCIN ORDER XX SCH (18:41)
[2016-09-09] MEDS: PERCOCET 5MG/325MG TAB PO PRN (19:27)
[2016-09-09 20:00] VITALS: BP 181/80
[2016-09-10] VITALS (7 sets, daily range): BP systolic 151–188; BP diastolic 68–88
[2016-09-10] MEDS: PIPERACILLIN/TAZOBACTAM SOD 2.25 GM in D5W MINI-BAG PLUS 50 ML IV SCH ×3 (00:12→15:40)
[2016-09-10] MEDS: PERCOCET 5MG/325MG TAB PO PRN ×3 (00:14→20:20)
[2016-09-10 04:40] LABS: MEAN CORPUSCULAR HEMOGLOBIN 32.6 pg (27.0-33.0); MEAN CORPUSCULAR HGB CONC 33.2 g/dl (32.0-36.5); MEAN CORPUSCULAR VOLUME 98.1 fl (80.0-96.0); RED CELL DISTRIBUTION WIDTH 16.7 % (11.5-14.5); WHITE BLOOD COUNT 6.8 K/mm3 (4.0-10.0)
[2016-09-10 04:51] LABS: CALCIUM LEVEL 8.8 MG/DL (8.5-10.1); CREATININE FOR GFR 4.22 MG/DL (0.70-1.30); GLOMERULAR FILTRATION RATE 15.5 (>56); POTASSIUM SERUM 4.1 MEQ/L (3.5-5.1)
[2016-09-10] MEDS: HEPARIN SOD (PORCINE) 5000 UNITS/ML VIAL SC SCH ×3 (06:11→21:39)
[2016-09-10] MEDS: HumaLOG INSULIN (NovoLOG) PER UNIT SC SCH ×4 (07:30→21:00)
[2016-09-10] MEDS: ASPIRIN 325 MG TAB PO SCH (10:01)
[2016-09-10] MEDS: LANTHANUM CARBONATE 500 MG CHEW TABLET PO SCH ×3 (10:01→17:17)
[2016-09-10] MEDS: VITAMIN D 1,000 INTERNATIONAL UNITS TABLET PO SCH (10:02)
[2016-09-10] MEDS: OMEGA-3 1050MG CAPSULE PO SCH ×2 (10:02→20:19)
[2016-09-10] MEDS: CLOPIDOGREL 75 MG TAB PO SCH (10:02)
[2016-09-10] MEDS: OMEPRAZOLE 20 MG CAP PO SCH (10:02)
[2016-09-10] MEDS: MINOXIDIL 2.5 MG TAB PO SCH (10:04)
[2016-09-10] MEDS: CALCIUM ACETATE 667 MG GELCAP PO SCH ×3 (10:05→17:17)
[2016-09-10] MEDS: ISOSORBIDE MON. (IMDUR) 60 MG XR TAB PO SCH (10:05)
[2016-09-10] MEDS: SANTYL OINT 30GM TOP SCH (10:06)
--- NOTE | 2016-09-10 10:37 | CR ---
DATE OF CONSULTATION: 09/09/2016 REASON FOR CONSULTATION: Shortness of breath, hyperkalemia and chest pain in this gentleman with end-stage renal disease. HISTORY OF PRESENT ILLNESS: Mr. Rivera is a 56-year-old gentleman with multiple chronic medical problems including diabetes, hypertension, coronary artery disease, end-stage renal disease and associated complications. He was brought to the emergency room with chest pain last evening and got admitted. He has been diagnosed with pneumonia and uncontrolled hypertension with congestive heart failure. Nephrology consultation was requested this morning as the patient is due for dialysis. I have seen Mr. Rivera in intensive care unit this morning. PAST MEDICAL AND SURGICAL HISTORY Significant for: 1. Hypertension. 2. Coronary artery disease, status post prior myocardial infarction. 3. Diabetes. 4. End-stage renal disease. 5. Severe systolic congestive heart failure. 6. Chronic basilar arterial disease. 7. Atrial fibrillation. 8. Hyperparathyroidism. 9. History of hypercholesterolemia. 10. Depression. 11. Gastroesophageal reflux disease. MEDICATIONS His home medications include: - aspirin 325 mg daily - atorvastatin 80 mg daily - calcium acetate two capsules three times a day with meals - vitamin D 1000 units daily - Plavix 75 mg daily - fish oil 1000 mg twice a day - Levemir insulin 12 units at bedtime - isosorbide 60 mg daily - minoxidil 2.5 mg daily - omeprazole 40 mg daily - albuterol inhaler as needed for shortness of breath ALLERGIES: The patient has reported allergy to LYRICA, MUSHROOMS, TAPE. PAST MEDICAL HISTORY: Significant for AV fistula creation, history of coronary angioplasty and stent preceded by coronary bypass surgery, appendectomy, right big toe amputation and carotid angioplasty. FAMILY HISTORY: There is no family history for end-stage renal disease. He does have history of chronic obstructive pulmonary disease (COPD), diabetes, hypertension and heart disease in his family. SOCIAL HISTORY: The patient is a former smoker. He denies any alcohol or drug use. He lives with his family. REVIEW OF SYSTEMS: The patient denies any fever or chills. He developed shortness of breath and chest pain last evening due to which he came to the emergency room, which has now improved. He is somewhat hard of hearing. His nose and throat are unremarkable. His eye sight is poor due to diabetic retinopathy. Cardiovascular system is significant for dyspnea and chest pain, which has now improved. Respiratory system is significant for COPD. He denies any hemoptysis. Gastrointestinal system is negative for vomiting, diarrhea, abdominal pain or rectal bleeding. Genitourinary system is negative for dysuria or hematuria. Endocrine system is significant for hyperparathyroidism and diabetes. There is no history of hypothyroidism. Psychosocial system is significant for noncompliance with medications and dietary restrictions in addition to depression. Neurological system is negative for seizures. He does have prior history of transient ischemic attack. Musculoskeletal system is significant for chronic back pain and leg edema. PHYSICAL EXAMINATION: At the time of my visit, the patient is lying in the bed without any acute distress. Temperature 97.7 degrees Fahrenheit, heart rate 83 per minute and respiratory rate 20 per minute. Blood pressure 180/96 mmHg and oxygen saturation 93% on room air. Head: Is atraumatic. Ears, nose and throat are unremarkable. Neck veins are moderately distended. There is no thyroid enlargement. Trachea is midline. Heart sounds are regular with systolic murmur grade 2/6. Lungs with scattered rhonchi bilaterally and minimal expiratory wheezing. Abdomen is soft and nontender and bowel sounds are normal. Liver is mildly enlarged and nontender. Extremities have no cyanosis or clubbing. His left arm AV fistula is patent. There is 2+ edema on his legs. Neurologically, he is awake, alert and oriented times three. LABORATORY DATA WBC count 9.2, hemoglobin 11.5 and hematocrit 36.2. Sodium 128 and potassium 5.7. CO2 23, BUN 35 and creatinine 5.61. His BNP level is greater than 5000. Chest x-ray done in the emergency room showed cardiomegaly and left lower lobe infiltrate. There is also pulmonary vascular congestion. Ultrasound of his legs was done, which showed no evidence of deep vein thrombosis (DVT). PROBLEMS: 1. Chest pain and shortness of breath. Most likely related to volume overload and congestive heart failure. He did have a troponin, which remained within normal range of less than 0.1. The patient has history of noncompliance and usually gains 6-8 kg, weight between dialysis treatments. We are going to arrange dialysis for him this afternoon, and we will try to remove at least 6 liters of fluid. 2. End-stage renal disease. The patient is due for dialysis today, which is his regular day. Dialysis will be performed for 4 hours and 6 liters of fluid will be removed. 3. Hyperkalemia again this is related to dietary noncompliance. The patient was dialyzed with 1.0 mEq potassium bath, which will help to correct his hyperkalemia. 4. Hyponatremia. This is related to hypervolemia and noncompliance with fluid restriction. This will also improve with fluid removal of 6 liters today. We will recheck his electrolytes. 5. Uncontrolled hypertension. Partly it is related to noncompliance with medications and partly it is related to volume overload. After fluid removal, we will monitor his blood pressure and make adjustments in his medications. 6. Acute on chronic systolic congestive heart failure. The patient is significantly volume overloaded. We will remove at least 6 liters of fluid today and then reevaluate his volume status. We might need to consider further dialysis again tomorrow. I thank you for involving me in the care of Mr. Rivera. I will follow him along with you.
--- NOTE | 2016-09-10 12:47 | IPN ---
DATE: 09/10/2016 Mr. Rivera is seen this morning on his bedside in intensive care unit. He was admitted with chest pain, shortness of breath and uncontrolled hypertension. He underwent hemodialysis yesterday and was removed 6 liters of fluid, which he tolerated well. His dyspnea has improved and he denies any chest pain. His blood pressure is still somewhat on the high side. The patient denies any nausea, vomiting or headache. PHYSICAL EXAMINATION Temperature 97.5 degrees Fahrenheit, heart rate 74 per minute and respiratory rate 22 per minute. Blood pressure 151/72 mmHg and oxygen saturation 96% on room air. Head is atraumatic. Neck veins are mildly distended. Neck is supple and without any thyroid enlargement. Ears, nose and throat are unremarkable. Heart sounds are regular and there is no pericardial friction rub. Lungs sound clear to auscultation. Abdomen is soft and nontender and without a palpable organomegaly. Extremities have no cyanosis or clubbing. Neurologically, he is awake, alert and at his baseline mentation. Today's labs show WBC count 6.8, hemoglobin 11.0, hematocrit 32.9. Platelets 174. Sodium 134 and potassium 4.1. BUN 25 and creatinine 4.22. PROBLEMS: 1. Shortness of breath. This was related to hypervolemia and his volume status has improved significantly. I discussed with the patient about further fluid removal need and possibility of an ultrafiltration, however he declined it. He wishes to wait until tomorrow for his regular dialysis treatment. 2. Uncontrolled hypertension. Blood pressure control is improved. He has been receiving his usual medications and I suggest to give him extra minoxidil if indicated. Volume status correction will also help with the control of blood pressure. 3. Pneumonia. The patient is currently on vancomycin and Zosyn. He is afebrile and doing well. 4. Hyperkalemia, potassium level has corrected with hemodialysis. No other intervention is indicated. 5. Hyponatremia. Sodium level has also improved today, and we will continue to monitor his electrolytes daily. This will correct further with hemodialysis. DISPOSITION: From renal standpoint, the patient can be transferred to medical floor.
--- NOTE | 2016-09-10 14:23 | IPNPDOC ---
Subjective Date Seen The patient was seen on 09/10/16. Subjective Chief Complaint/HPI The patient is a 56-year-old male admitted with a reason for visit of Chest Pain /Elevated D-Dimer. Events since last encounter feels better this am , continues to have the back pain at the site of injury where he fell. no fever or chills, no chest pain , has some cough , no abdominal pain nausea or vomiting or diarrhea. Objective Physical Examination General Exam: Positive: Alert, Cooperative, No Acute Distress Eye Exam: Positive: Conjunctiva & lids normal, Negative: Sclera icteric ENT Exam: Positive: Atraumatic, Mucous membr. moist/pink Neck Exam: Positive: Supple, Lymphadenopathy Chest Exam: Positive: Clear to auscultation (Poor inspiratory effort secondary to pain) Heart Exam: Positive: Rate Normal, Regular Rhythm, Normal S1, Normal S2, Murmurs, Negative: Tachycardic, Bradycardic, Gallops, Rubs Abdomen Exam: Positive: Normal bowel sounds, Soft, Negative: BS Hyperactive, BS Hypoactive, Tenderness, Hepatospenomegaly Extremity Exam: Negative: Clubbing, Cyanosis, Tenderness Skin Exam: Positive: Nl turgor and temperature, Other skin issue (Bruise L paraspinal from mid spine down to just above L posterior iliac crest) Neuro Exam: Positive: Normal Gait, Normal Speech, Strength at 5/5 X4 ext, Cranial Nerves 3-12 NL Psych Exam: Positive: Mental status NL, Mood NL Assessment /Plan Problems (1) Pneumonia Status: Acute Problem Text: continue zosyn and vanco. (2) ESRD (end stage renal disease) Status: Chronic (3) CAD (coronary artery disease) Status: Chronic Problem Text: s/p stenting in july 2016 (4) Hx of CABG Status: Chronic (5) Diabetes Status: Chronic (6) Hypertension Status: Chronic (7) PAD (peripheral artery disease) Status: Chronic (8) Peripheral neuropathy Status: Chronic (9) Paroxysmal a-fib Status: Chronic (10) GERD (gastroesophageal reflux disease) Status: Chronic (11) Pulmonary hypertension Status: Chronic (12) History of cerebrovascular accident Status: Chronic (13) Back contusion Status: Acute Problem Text: after fall down steps at the house. patient does not want to go back to the same house any more. (14) Elevated d-dimer Status: Acute Problem Text: low probability for PE by wells criteria so will not do any ct angio. (15) COPD (chronic obstructive pulmonary disease) Status: Chronic Plan/VTE VTE Prophylaxis Ordered?: Yes VS, I&O, 24H, Fishbone Vital Signs/I&O Vital Signs Date Time Temp Pulse Resp B/P (MAP) Pulse Ox O2 Delivery O2 Flow Rate FiO2 09/10/16 12:52 18 09/10/16 12:30 Room Air 09/10/16 12:00 97.5 74 177/81 (113) 97 I&O- Last 24 Hours up to 6 AM 09/10/16 05:59 Intake Total 955 ml Output Total 6650 ml Balance -5695 ml Laboratory Data 24H LABS Laboratory Tests 2 09/09/16 17:42: Bedside Glucose (Misc Panel) 49L 09/09/16 18:40: Bedside Glucose (Misc Panel) 118H 09/09/16 20:45: Bedside Glucose (Misc Panel) 152H 09/10/16 04:04: Anion Gap 9, Glomerular Filtration Rate 15.5L, Blood Urea Nitrogen 25H, Creatinine 4.22H, Sodium Level 134L, Potassium Level 4.1, Chloride Level 96L, Carbon Dioxide Level 29, Calcium Level 8.8 09/10/16 07:43: Bedside Glucose (Misc Panel) 83 09/10/16 11:42: Bedside Glucose (Misc Panel) 197H CBC/BMP Laboratory Tests 09/10/16 04:04 Red Blood Count 3.36 L, Mean Corpuscular Volume 98.1 H, Mean Corpuscular Hemoglobin 32.6, Mean Corpuscular Hemoglobin Concent 33.2, Red Cell Distribution Width 16.7 H, Calcium Level 8.8 Microbiology Microbiology 09/08/16 Blood Culture - Preliminary, Resulted No growth after 24 hours . All specim... 09/08/16 Blood Culture - Preliminary, Resulted No growth after 24 hours . All specim... ISRAEL CAMPUZANO MD Sep 10, 2016 14:23
[2016-09-10] MEDS ORDERED: ONDANSETRON 4MG/2ML VIAL (J2405) IV PRN (15:45)
[2016-09-10] MEDS: CHECK TO SEE IF PATIENT IS RECEIVING DIALYSIS TODAY AND REFER TO THE VANCOMYCIN ORDER XX SCH (16:00)
[2016-09-10] MEDS: ATORVASTATIN 20 MG TAB PO SCH (20:20)
[2016-09-11] MEDS: PIPERACILLIN/TAZOBACTAM SOD 2.25 GM in D5W MINI-BAG PLUS 50 ML IV SCH ×3 (00:18→15:27)
[2016-09-11 02:00] VITALS: BP 160/70
[2016-09-11] MEDS: PERCOCET 5MG/325MG TAB PO PRN ×2 (03:17→17:40)
[2016-09-11] MEDS: CALCIUM ACETATE 667 MG GELCAP PO SCH ×3 (06:07→17:39)
[2016-09-11] MEDS: HEPARIN SOD (PORCINE) 5000 UNITS/ML VIAL SC SCH ×3 (06:07→21:24)
[2016-09-11] MEDS: ASPIRIN 325 MG TAB PO SCH (06:08)
[2016-09-11] MEDS: CLOPIDOGREL 75 MG TAB PO SCH (06:08)
[2016-09-11] MEDS: OMEPRAZOLE 20 MG CAP PO SCH (06:08)
[2016-09-11] MEDS: SANTYL OINT 30GM TOP SCH (06:09)
[2016-09-11] MEDS: LANTHANUM CARBONATE 500 MG CHEW TABLET PO SCH ×3 (06:09→17:39)
[2016-09-11] MEDS: VITAMIN D 1,000 INTERNATIONAL UNITS TABLET PO SCH (06:09)
[2016-09-11] MEDS: OMEGA-3 1050MG CAPSULE PO SCH ×2 (06:09→21:23)
[2016-09-11 06:10] VITALS: BP 144/60
[2016-09-11] MEDS: MINOXIDIL 2.5 MG TAB PO SCH (06:13)
[2016-09-11] MEDS: ISOSORBIDE MON. (IMDUR) 60 MG XR TAB PO SCH (06:13)
[2016-09-11] MEDS: HumaLOG INSULIN (NovoLOG) PER UNIT SC SCH ×4 (06:19→21:00)
[2016-09-11 06:54] LABS: CALCIUM LEVEL 9.3 MG/DL (8.5-10.1); CREATININE FOR GFR 5.2 MG/DL (0.70-1.30); GLOMERULAR FILTRATION RATE 12.2 (>56); MEAN CORPUSCULAR HEMOGLOBIN 32.8 pg (27.0-33.0); MEAN CORPUSCULAR HGB CONC 33.7 g/dl (32.0-36.5); MEAN CORPUSCULAR VOLUME 97.3 fl (80.0-96.0); POTASSIUM SERUM 4.4 MEQ/L (3.5-5.1); RED CELL DISTRIBUTION WIDTH 17.1 % (11.5-14.5); WHITE BLOOD COUNT 6.2 K/mm3 (4.0-10.0)
[2016-09-11] MEDS ORDERED: HEPARIN 1,000 UNITS/ML 10ML VIAL (FOR RADIOLOGY& DIALYSIS ONLY) IV ONE (11:45)
[2016-09-11] MEDS ORDERED: DARBEPOETIN 100 MCG/0.5 ML *DIALYSIS* SYRINGE (J0882) IV SCH (11:45)
--- NOTE | 2016-09-11 11:52 | IPN ---
DATE: 09/11/2016 Mr. Rivera is seen this morning during hemodialysis. He is resting comfortably. He did injure his left middle finger on his way to dialysis and had some bleeding. Currently, nursing staff has applied a bandage and dressing. The patient denies any headache, dyspnea, chest pain, nausea, vomiting, fever or chills. PHYSICAL EXAMINATION: Temperature 98.0 degrees Fahrenheit, heart rate 80 per minute and respiratory rate 18 per minute. Blood pressure 144/60 mmHg and oxygen saturation 98% on room air. Neck is supple and jugular venous distention (JVD) is 7-8 cm above sternal angle. Head is atraumatic. Ears, nose and throat are unremarkable. Heart sounds are regular and lungs with a few basilar rales. Abdomen is soft, nontender and bowel sounds normal. There is no palpable organomegaly. Extremities have no cyanosis or clubbing. His left middle finger is wrapped in dressing and I did open the dressing. He seems to have a small old ulcer with a stab and small area of skin laceration with oozing of blood. Extremities have 1+ edema around his ankles. Neurologically, he is awake, alert and at his baseline mentation. Today's labs show WBC count 6.2, hemoglobin 10.3 and hematocrit 30.7. Sodium 128 and potassium 4.4. BUN 29 and creatinine 5.2. Glucose 92 and calcium 9.3. PROBLEMS: 1. End-stage renal disease. The patient is being dialyzed today, which is his regular day. He will complete his 4-hour dialysis treatment. 2. Congestive heart failure with systolic dysfunction. We are trying to remove about 5 liters of fluid today with hemodialysis and he seems to be tolerating it well so far. 3. Hyponatremia. His sodium level declined significantly from yesterday. We anticipate improvement with hemodialysis today. His electrolytes will be rechecked tomorrow morning. 4. Anemia. His anemia is mild and stable. He will be given Aranesp 100 mcg today with hemodialysis. 5. Pneumonia. The patient remains on Zosyn, and he is clinically improving. 6. Hypertension. Blood pressure control has improved and is likely to improve further with fluid removal of 5 liters today.
--- NOTE | 2016-09-11 13:14 | IPNPDOC ---
Subjective Date Seen The patient was seen on 09/11/16. Subjective Chief Complaint/HPI The patient is a 56-year-old male admitted with a reason for visit of Chest Pain /Elevated D-Dimer. Objective Physical Examination General Exam: Positive: Alert, Cooperative, No Acute Distress Eye Exam: Positive: Conjunctiva & lids normal, Negative: Sclera icteric ENT Exam: Positive: Atraumatic, Mucous membr. moist/pink Neck Exam: Positive: Supple, Lymphadenopathy Chest Exam: Positive: Clear to auscultation (Poor inspiratory effort secondary to pain) Heart Exam: Positive: Rate Normal, Regular Rhythm, Normal S1, Normal S2, Murmurs, Negative: Tachycardic, Bradycardic, Gallops, Rubs Abdomen Exam: Positive: Normal bowel sounds, Soft, Negative: BS Hyperactive, BS Hypoactive, Tenderness, Hepatospenomegaly Extremity Exam: Negative: Clubbing, Cyanosis, Tenderness Skin Exam: Positive: Nl turgor and temperature, Other skin issue (Bruise L paraspinal from mid spine down to just above L posterior iliac crest) Neuro Exam: Positive: Normal Gait, Normal Speech, Strength at 5/5 X4 ext, Cranial Nerves 3-12 NL Psych Exam: Positive: Mental status NL, Mood NL Assessment /Plan Problems (1) Pneumonia Status: Acute Response to Treatment: Improving Problem Text: continue zosyn . vancomycin discontinued as no MRSA. blood cultures in progress. . (2) Systolic congestive heart failure Status: Acute Problem Text: acute on chronic with fluid overload. trying to remove extra fluid during HD. EF of 30% to 35% (3) ESRD (end stage renal disease) Status: Chronic Response to Treatment: Stable Problem Text: has hyponatremia which should improve with HD. anemia of chronic disease, hh at goal. (4) CAD (coronary artery disease) Status: Chronic Problem Text: s/p stenting in july 2016 (5) Hx of CABG Status: Chronic (6) Diabetes Status: Chronic (7) Hypertension Status: Chronic (8) PAD (peripheral artery disease) Status: Chronic (9) Peripheral neuropathy Status: Chronic (10) Paroxysmal a-fib Status: Chronic Response to Treatment: Stable (11) GERD (gastroesophageal reflux disease) Status: Chronic (12) Pulmonary hypertension Status: Chronic (13) History of cerebrovascular accident Status: Chronic (14) Back contusion Status: Acute Problem Text: after fall down steps at the house. patient does not want to go back to the same house any more. (15) Elevated d-dimer Status: Acute Problem Text: low probability for PE by wells criteria so will not do any ct angio. (16) COPD (chronic obstructive pulmonary disease) Status: Chronic Plan/VTE VTE Prophylaxis Ordered?: Yes VS, I&O, 24H, Fishbone Vital Signs/I&O Vital Signs Date Time Temp Pulse Resp B/P (MAP) Pulse Ox O2 Delivery O2 Flow Rate FiO2 09/11/16 09:00 Room Air 09/11/16 06:13 144/60 09/11/16 06:10 98.0 79 18 98 I&O- Last 24 Hours up to 6 AM 09/11/16 05:59 Intake Total 1995 ml Output Total 400 ml Balance 1595 ml Laboratory Data 24H LABS Laboratory Tests 2 09/10/16 16:26: Bedside Glucose (Misc Panel) 82 09/10/16 21:23: Bedside Glucose (Misc Panel) 166H 09/11/16 06:19: Bedside Glucose (Misc Panel) 100 09/11/16 06:29: Anion Gap 13, Glomerular Filtration Rate 12.2L, Blood Urea Nitrogen 29H, Creatinine 5.20H, Sodium Level 128L, Potassium Level 4.4, Chloride Level 91L, Carbon Dioxide Level 24, Calcium Level 9.3 CBC/BMP Laboratory Tests 09/11/16 06:29 Red Blood Count 3.16 L, Mean Corpuscular Volume 97.3 H, Mean Corpuscular Hemoglobin 32.8, Mean Corpuscular Hemoglobin Concent 33.7, Red Cell Distribution Width 17.1 H, Calcium Level 9.3 Microbiology Microbiology 09/08/16 Blood Culture - Preliminary, Resulted No Growth after 48 hours. All Specime... 09/08/16 Blood Culture - Preliminary, Resulted No Growth after 48 hours. All Specime... ISRAEL CAMPUZANO MD Sep 11, 2016 13:14
[2016-09-11 14:00] VITALS: BP 140/58
[2016-09-11] MEDS: CHECK TO SEE IF PATIENT IS RECEIVING DIALYSIS TODAY AND REFER TO THE VANCOMYCIN ORDER XX SCH (16:00)
[2016-09-11] MEDS: VANCOMYCIN HCL 1,000 MG, VIAL MATE ADAPTER 1 EACH in D5W 250 ML IV SCH (16:20)
[2016-09-11 18:00] VITALS: BP 152/68
[2016-09-11 20:20] VITALS: BP 162/62
[2016-09-11] MEDS: ATORVASTATIN 20 MG TAB PO SCH (21:24)
[2016-09-12] MEDS: PIPERACILLIN/TAZOBACTAM SOD 2.25 GM in D5W MINI-BAG PLUS 50 ML IV SCH ×2 (00:14→08:49)
[2016-09-12] MEDS: PERCOCET 5MG/325MG TAB PO PRN (00:15)
[2016-09-12 02:00] VITALS: BP 166/76
[2016-09-12 05:55] VITALS: BP 146/68
[2016-09-12] MEDS: HEPARIN SOD (PORCINE) 5000 UNITS/ML VIAL SC SCH ×2 (06:03→14:00)
[2016-09-12 06:51] LABS: MEAN CORPUSCULAR HEMOGLOBIN 32.4 pg (27.0-33.0); MEAN CORPUSCULAR HGB CONC 33.1 g/dl (32.0-36.5); MEAN CORPUSCULAR VOLUME 97.9 fl (80.0-96.0); RED CELL DISTRIBUTION WIDTH 16.7 % (11.5-14.5); WHITE BLOOD COUNT 5.9 K/mm3 (4.0-10.0)
[2016-09-12 07:03] LABS: CALCIUM LEVEL 9.2 MG/DL (8.5-10.1); CREATININE FOR GFR 3.66 MG/DL (0.70-1.30); GLOMERULAR FILTRATION RATE 18.3 (>56); POTASSIUM SERUM 4.4 MEQ/L (3.5-5.1)
[2016-09-12] MEDS: HumaLOG INSULIN (NovoLOG) PER UNIT SC SCH ×2 (07:30→12:27)
[2016-09-12] MEDS: ASPIRIN 325 MG TAB PO SCH (08:47)
[2016-09-12] MEDS: CALCIUM ACETATE 667 MG GELCAP PO SCH ×2 (08:47→12:29)
[2016-09-12] MEDS: VITAMIN D 1,000 INTERNATIONAL UNITS TABLET PO SCH (08:48)
[2016-09-12] MEDS: LANTHANUM CARBONATE 500 MG CHEW TABLET PO SCH ×2 (08:48→12:29)
[2016-09-12] MEDS: OMEGA-3 1050MG CAPSULE PO SCH (08:48)
[2016-09-12] MEDS: MINOXIDIL 2.5 MG TAB PO SCH (08:48)
[2016-09-12] MEDS: CLOPIDOGREL 75 MG TAB PO SCH (08:48)
[2016-09-12] MEDS: OMEPRAZOLE 20 MG CAP PO SCH (08:48)
[2016-09-12 08:49] VITALS: BP 146/68
[2016-09-12] MEDS: ISOSORBIDE MON. (IMDUR) 60 MG XR TAB PO SCH (08:49)
[2016-09-12] MEDS: SANTYL OINT 30GM TOP SCH (08:50)
[2016-09-12] MEDS ORDERED: LEVE1INJ5 SC (09:55)
[2016-09-12] MEDS ORDERED: CEFD1CAP8 PO (09:55)
[2016-09-12 10:00] VITALS: BP 170/90
--- NOTE | 2016-09-12 17:11 | IPN ---
DATE: 09/12/2016 SUBJECTIVE: Mr. Rivera is seen this morning on his bedside. He is sitting at the edge of bed. He denies any nausea, vomiting, dyspnea or chest pain. I see boxes of potato chips on his bedside table and have inquired about it. The patient reports that he eats only a few every day. I have advised him to avoid any high salt-containing foods. PHYSICAL EXAMINATION: GENERAL: He is awake, alert and oriented times three. VITAL SIGNS: Temperature is 99 degrees Fahrenheit, heart rate 79 per minute and respiratory rate 17 per minute. Blood pressure 146/68 mmHg and oxygen saturation 97% on room air. HEENT: Head is atraumatic. Ears, nose and throat are unremarkable. CARDIORESPIRATORY: Heart sounds are regular and lungs clear to auscultation. ABDOMEN: Soft and nontender and without a palpable organomegaly. EXTREMITIES: Have no cyanosis or clubbing. He has a small scabbed ulcer on his left middle finger. There is no cellulitis at present. Arteriovenous (AV) fistula in left forearm is patent. LABORATORY DATA: Today's labs show WBC count 5.9, hemoglobin 10.7 and hematocrit 32.2. Sodium 131 and potassium 4.4. BUN 18 and creatinine 3.66. PROBLEMS: 1. End-stage renal disease. The patient was dialyzed yesterday and his next dialysis will be scheduled for tomorrow. At present, his volume status seems to be well compensated. 2. Hyponatremia. This is chronic and related to dietary noncompliance. Sodium level did improve from yesterday. It is likely to improve further with hemodialysis if he follows his fluid restriction. 3. Anemia. His anemia is stable and does not need any intervention. 4. Hypertension. Blood pressure control has also improved with improvement in his volume status and adjustment in medications. I recommend to continue with current antihypertensive medications. DISPOSITION: From renal standpoint, the patient can be discharged to home today and followup at outpatient dialysis clinic. His next dialysis will be scheduled for tomorrow.
--- NOTE | 2016-09-14 08:41 | DSES ---
DATE OF ADMISSION: 09/09/2016 DATE OF DISCHARGE: 09/12/2016 PRIMARY CARE PROVIDER: Phan Lancaster MD CLINICAL RESEARCH MANAGER: Enmanuel Oconnell MD DISCHARGE DIAGNOSES: 1. Left lower lobe pneumonia. 2. Systolic congestive heart failure with exacerbation due to noncompliance with dialysis. Has an ejection fraction (EF) of 30% to 35%. 3. End-stage renal disease, on hemodialysis. 4. Coronary artery disease, status post coronary artery bypass graft (CABG) in the past and status post recent stenting on 08/06/2016. 5. Diabetes. 6. Hypertension. 7. Peripheral arterial disease. 8. Peripheral neuropathy. 9. Paroxysmal atrial fibrillation (AFib). 10. Gastroesophageal reflux disease (GERD). 11. Pulmonary hypertension. 12. History of cerebrovascular accident with residual hemiparesis. 13. Recent fall down the stairs 4 days prior to admission with back contusions. 14. Elevated D-dimer. However, CT angiogram of the abdominal arteries and pulmonary arteries did not show any pulmonary embolism and showed good vascular runoff in both the lower extremities. 15. Chronic obstructive pulmonary disease (COPD). 16. Chronic diabetic foot ulcer on the right lateral midfoot, following with Dr. Saldivar. HOSPITAL COURSE: This is a 56-year-old patient with end-stage renal disease (ESRD) on hemodialysis, presented with pleuritic chest pain for a few days, which started after he tripped and fell down his stairs on 09/04/2016. At that time, he had come to the emergency room and was evaluated for acute trauma, which was negative. At this time, in the emergency room, he was found to have an elevated brain natriuretic peptide (BNP) greater than 5000, elevated D-dimer, and chest x-ray showed left lower lobe infiltrate. The patient was admitted for a left lower lobe pneumonia. The patient had an angiogram of the abdominal arteries, which showed good flow to all the lower extremities arteries. In view of his low probability for pulmonary embolism, the patient did not have a CT angiogram of the pulmonary artery stent. The patient was started on antibiotics for pneumonia. The patient had dialysis done in the hospital. The patient shortness of breath improved with treatment, though the patient continued to complain of back pain at the place where he had hurt himself when he fell. The patient's was felt partially due to restriction of respiratory movements due to pain. However, in the hospital, he was doing well; and on the day of discharge, his vital signs were stable, did not have much complaints. He was functionally at his baseline. He did express that he did not like his current housing situation, did not want to go back home. Patient and family services (PFS) and case management have spoken to him about his situation; and as per them, the patient has to go back to his current house; and then if he is unhappy with the current house, he has to apply for new housing. PHYSICAL EXAMINATION: VITAL SIGNS: Temperature 99, pulse 79, respiratory rate 17, blood pressure 171/90, pulse oximetry 97% in room air. GENERAL: The patient awake, alert, oriented times three. Sitting up in bed in no acute distress. HEENT: Normocephalic, atraumatic. Moist mucous membranes. Anicteric eyes. CHEST: Clear to auscultation. CARDIOVASCULAR: S1, S2. Regular. No rub, murmur, or gallop. ABDOMEN: Soft, nontender. Bowel sounds present. EXTREMITIES: No edema. LABORATORY DATA: WBC 5.9, hemoglobin 10.7, platelet 168. Sodium 131, potassium 4.4, chloride 95, bicarbonate 28, BUN 18, creatinine 3.66, glucose 73, calcium 9.2. Cardiac enzymes were negative. DISPOSITION: The patient is discharged home in a stable condition. DISCHARGE INSTRUCTIONS: The patient to followup with primary care provider in 1 week. The patient to followup with his hemodialysis and to follow with hemodialysis. Diet as tolerated. Activity as tolerated.
== END 2016-09-12 14:53 | disposition home health service (06) | DRG 291 ==
LOC: M ED 19:58 → EDBD 19:58 → M ED INP 09-09 00:50 → M ICU 09-09 01:54 → M MSPAV 09-10 12:17
PROVIDERS: ATTEND Internal Medicine Nephrology
PROC: 5A1D00Z (ICD-10-PCS; principal; 2016-09-09)
DX: I13.2 Hypertensive heart and chronic kidney disease with heart failure and with stage 5 chronic kidney disease, or end stage renal disease (principal); I50.23 Acute on chronic systolic (congestive) heart failure; N18.6 End stage renal disease; J18.9 Pneumonia, unspecified organism; E87.1 Hypo-osmolality and hyponatremia; E11.9 Type 2 diabetes mellitus without complications; I48.0 Paroxysmal atrial fibrillation; K21.9 Gastro-esophageal reflux disease without esophagitis; J44.9 Chronic obstructive pulmonary disease, unspecified; Z95.1 Presence of aortocoronary bypass graft; I25.10 Atherosclerotic heart disease of native coronary artery without angina pectoris; Z99.2 Dependence on renal dialysis; I73.9 Peripheral vascular disease, unspecified; S20.229A Contusion of unspecified back wall of thorax, initial encounter; E87.5 Hyperkalemia; I25.2 Old myocardial infarction; D63.1 Anemia in chronic kidney disease; Z79.4 Long term (current) use of insulin; Z91.018 Allergy to other foods; Z88.8 Allergy status to other drugs, medicaments and biological substances; Z91.048 Other nonmedicinal substance allergy status; Z95.828 Presence of other vascular implants and grafts; Z89.411 Acquired absence of right great toe; Z83.3 Family history of diabetes mellitus; Z80.9 Family history of malignant neoplasm, unspecified; Z82.49 Family history of ischemic heart disease and other diseases of the circulatory system; Z83.6 Family history of other diseases of the respiratory system; Z87.891 Personal history of nicotine dependence; Z91.19 Patient's noncompliance with other medical treatment and regimen; W10.8XXA Fall (on) (from) other stairs and steps, initial encounter; Y92.009 Unspecified place in unspecified non-institutional (private) residence as the place of occurrence of the external cause; Y93.01 Activity, walking, marching and hiking; Y99.9 Unspecified external cause status

== ENCOUNTER → 2016-09-08 | Outpatient (CLI) | payer MEDICARE, MEDICAID ==
[~2016-09-08] MED LIST changes: +ISOVUE-370 76% 100ML VIAL (Q9967) As Ordered ONE
--- NOTE | 2016-09-16 01:43 | REP ---
Clinical: Diabetes with lower extremity ulcer. Technique: Axial contrast enhanced images from the thoracic inlet through the lower extremities using 100 ml Isovue 370 intravenous contrast material and imaged in the arterial phase of enhancement with coronal and sagittal re-formations. MIP and MPR re-formations obtained. Comparison: 04/04/2016 Findings: Satisfactory arterial enhancement is appreciated. Extensive atherosclerotic changes involving the aorta through the bilateral lower extremities noted, but with seemingly satisfactory opacification of the bilateral lower extremity vessels including three-vessel runoff to the ankles. Attenuated flow through the celiac access, SMA, and bilateral renal arteries cannot be excluded. Liver, spleen, pancreas, and bilateral adrenal glands are essentially normal for noncontrast / arterial phase enhancement. Cholelithiasis noted without CT evidence for acute cholecystitis. Kidneys demonstrate chronic atrophic changes and bilateral hypodense lesions suggesting cysts along with renovascular calcifications and chronic perinephric stranding. Right perinephric retroperitoneal and inguinal adenopathy cannot be excluded. The enteric system is without obstruction or acute inflammatory process. Pelvis demonstrates normal bladder and prominent prostate gland. No ascites. No free air. Impression: 1. Extensive atherosclerotic changes noted through the aorta, branch vessels and bilateral lower extremity arterial vasculature, but satisfactory enhancement is suggested along with three-vessel runoff to the bilateral ankles. 2. Cholelithiasis. 3. Renal atrophy and hyperdense lesions suggesting cysts may be correlated with ultrasound. 4. Right perinephric and retroperitoneal adenopathy warrants 3-6 months follow-up and correlation. Signed by Minesh Meier MD 09/16/2016 01:35 A
== END ==
LOC: M RAD 07:39
PROVIDERS: ATTEND Surgery
DX: E11.621 Type 2 diabetes mellitus with foot ulcer (principal)

== ENCOUNTER 2016-09-21 18:47 | Emergency (ER) | payer MEDICARE, MEDICAID ==
[~2016-09-21] VITALS: Ht 190.5 cm; Wt 95.4 kg
[~2016-09-21 18:47] MED LIST changes: +AMOX875T PO; +CEFD1CAP8 PO; +FISH1000 PO; +MOXI1TAB PO; +SANT250O8 TOP
[2016-09-21] MEDS ORDERED: CINA30TA (19:02)
[2016-09-21 19:30] LABS: BASO # 0.1 K/mm3 (0.0-0.2); BASO % 1.9 % (0.0-1.0); EOS # 0.2 K/mm3 (0.0-0.50); EOS % 4.1 % (0.0-3.0); LARGE UNSTAINED CELL # 0.1 K/mm3 (0.0-0.4); LARGE UNSTAINED CELL % 2.2 % (0.0-4.0); LYMPH % 15.3 % (24.0-44.0); MEAN CORPUSCULAR HEMOGLOBIN 32.6 pg (27.0-33.0); MEAN CORPUSCULAR HGB CONC 32.8 g/dl (32.0-36.5); MEAN CORPUSCULAR VOLUME 99.4 fl (80.0-96.0); MONO # 0.7 K/mm3 (0.0-0.8); MONO % 10.9 % (0.0-5.0); NEUTROPHILS # 3.9 K/mm3 (1.8-7.7); NEUTROPHILS % 65.6 % (36.0-66.0); PLATELET COUNT, AUTOMATED 187 k/mm3 (150-450); RED CELL DISTRIBUTION WIDTH 17.5 % (11.5-14.5)
[2016-09-21] MEDS ORDERED: KETOROLAC 30 MG/ML VIAL (J1885) IV ONE (19:30)
[2016-09-21 19:39] LABS: INR 1.06
--- NOTE | 2016-09-21 19:41 | ECGEPIP ---
Stationary ECG Study [facility] - ED Test Date: 2016-09-21 Pat Name: JOHNNY GILES Department: Room: - Gender: M Gasfitter: AYE : 1960 Requested By: GERBER PATEL Order Number: [id number] Reading MD: Floyd Barbosa Measurements Intervals [place] Rate: 79 P: 35 [place]: 192 QRS: -73 QRSD: 164 T: 29 QT: 429 QTc: 493 Interpretive Statements SINUS RHYTHM INDETERMINATE AXIS RIGHT BUNDLE BRANCH BLOCK CW 09/08/16 - RATE DECREASED NEW ST T WAVE CHANGES ANTEROSEPTAL LEADS - RULE OUT ISCHEMIA CLINICALLY CORREALTE Electronically Signed On 09-21-2016 19:41:37 EDT by Floyd Barbosa
[2016-09-21 19:51] LABS: CALCIUM LEVEL 9.5 MG/DL (8.5-10.1); CREATININE FOR GFR 4.64 MG/DL (0.70-1.30); GLOMERULAR FILTRATION RATE 13.9 (>56); POTASSIUM SERUM 4.2 MEQ/L (3.5-5.1)
[2016-09-21] MEDS ORDERED: MORPHINE 2 MG/ML 1ML SYRINGE IV ONE (22:00)
[2016-09-22 01:32] VITALS: BP 136/72
--- NOTE | 2016-09-22 07:16 | REP ---
Chest two views HISTORY: Hypertension Comparison: None Linear densities are present in the left lower lobe consistent with atelectasis or scar. The right lung is clear. The heart is normal in size. The pulmonary vasculature is normal in appearance. Degenerative change is present in the thoracic spine. IMPRESSION: No acute disease. Signed by Julian Briggs MD 09/22/2016 03:57 P
--- NOTE | 2016-09-22 07:28 | ECGEPIP ---
Stationary ECG Study [facility] - ED Test Date: 2016-09-21 Pat Name: JOHNNY GILES Department: Room: - Gender: M Hothouse Worker: terrell : 1960 Requested By: GERBER PATEL Order Number: [id number] Reading MD: Elissa Medellin Measurements Intervals [place] Rate: 79 P: 77 SD: 192 QRS: 269 QRSD: 167 T: 54 QT: 430 QTc: 494 Interpretive Statements SINUS RHYTHM MARKED RIGHT AXIS DEVIATION RIGHT BUNDLE BRANCH BLOCK AND POSSIBLE RIGHT VENTRICULAR HYPERTROPHY SIMILAR 09/21/16 19:06 Electronically Signed On 09-22-2016 7:27:41 EDT by Elissa Medellin
== END 2016-09-22 01:55 | disposition home or self-care (01) ==
LOC: M ED 18:47 → EDBD 18:47 → M ED 09-22 01:55
DX: M94.0 Chondrocostal junction syndrome [Tietze] (principal); Z79.01 Long term (current) use of anticoagulants; Z95.1 Presence of aortocoronary bypass graft; Z98.61 Coronary angioplasty status
CPT/HCPCS: 36415; 71010; 80048; 82550; 82553; 84484; 85025; 85610; 85730; 93005; 96374; 96375; 99285; J1885

== ENCOUNTER 2016-09-26 06:02 | Emergency (ER) | payer MEDICARE, MEDICAID ==
[~2016-09-26 06:02] MED LIST changes: +CINA30TA
[2016-09-26] MEDS ORDERED: MORPHINE 2 MG/ML 1ML SYRINGE IM ONE (06:30)
--- NOTE | 2016-09-26 07:33 | REP ---
Left ribs and PA chest: Left ribs four views: There are nondisplaced fractures at the lateral aspects of the left tenth, eleventh and twelfth ribs. PA chest: There is no pneumothorax, hemothorax or pulmonary contusion. There are sternotomy wires and cardiomegaly, unchanged 09/21/2016. The nba, mediastinum, and bony thorax are otherwise unremarkable. Signed by Car Glover MD 09/26/2016 07:24 A
[2016-09-26 07:51] VITALS: BP 191/102
[2016-09-26] MEDS ORDERED: PERC5TAB12 PO (08:10)
== END 2016-09-26 08:39 | disposition home or self-care (01) ==
LOC: M ED 06:02
DX: S22.42XA Multiple fractures of ribs, left side, initial encounter for closed fracture (principal); I25.10 Atherosclerotic heart disease of native coronary artery without angina pectoris; I25.2 Old myocardial infarction; E11.9 Type 2 diabetes mellitus without complications; I10 Essential (primary) hypertension; G89.29 Other chronic pain; M54.5 Low back pain; F17.210 Nicotine dependence, cigarettes, uncomplicated; X58.XXXA Exposure to other specified factors, initial encounter; Y92.018 Other place in single-family (private) house as the place of occurrence of the external cause; Y99.9 Unspecified external cause status; Y93.9 Activity, unspecified; Z88.8 Allergy status to other drugs, medicaments and biological substances; Z88.1 Allergy status to other antibiotic agents; Z91.018 Allergy to other foods; Z79.82 Long term (current) use of aspirin; Z79.4 Long term (current) use of insulin; Z79.899 Other long term (current) drug therapy

== ENCOUNTER 2016-09-28 18:56 | Emergency (ER) | payer MEDICARE, MEDICAID ==
[~2016-09-28] VITALS: Ht 177.8 cm; Wt 89.0 kg
[~2016-09-28 18:56] MED LIST changes: +PERC5TAB12 PO
[2016-09-28 20:12] LABS: BASO # 0.1 K/mm3 (0.0-0.2); BASO % 1.7 % (0.0-1.0); EOS # 0.4 K/mm3 (0.0-0.50); EOS % 8.2 % (0.0-3.0); LARGE UNSTAINED CELL # 0.1 K/mm3 (0.0-0.4); LARGE UNSTAINED CELL % 1.1 % (0.0-4.0); LYMPH # 0.8 K/mm3 (1.5-4.5); MEAN CORPUSCULAR HEMOGLOBIN 33.1 pg (27.0-33.0); MEAN CORPUSCULAR HGB CONC 33.2 g/dl (32.0-36.5); MEAN CORPUSCULAR VOLUME 99.6 fl (80.0-96.0); MONO # 0.5 K/mm3 (0.0-0.8); MONO % 8.8 % (0.0-5.0); NEUTROPHILS # 3.4 K/mm3 (1.8-7.7); NEUTROPHILS % 66.3 % (36.0-66.0); PLATELET COUNT, AUTOMATED 188 k/mm3 (150-450); RED CELL DISTRIBUTION WIDTH 16.6 % (11.5-14.5); WHITE BLOOD COUNT 5.1 K/mm3 (4.0-10.0)
[2016-09-28 20:35] LABS: CALCIUM LEVEL 9.6 MG/DL (8.5-10.1); CREATININE FOR GFR 4.82 MG/DL (0.70-1.30); GLOMERULAR FILTRATION RATE 13.3 (>56); POTASSIUM SERUM 4.1 MEQ/L (3.5-5.1)
[2016-09-28 21:50] VITALS: BP 160/100
--- NOTE | 2016-09-29 07:55 | REP ---
Portable chest, , 04:00 p.m., single AP view, patient sitting: Comparison is the left rib series dated 09/26/2016. The previously identified left rib fractures are obscured on the current portable study. Lung rivera are clear. Cardiomegaly is again identified, unchanged. Sternotomy wires are again identified. There is a vascular stent superimposed over the cardiac silhouette on the right , unchanged. Impression: No acute cardiopulmonary findings. Cardiomegaly is again identified. Signed by Car Glover MD 09/29/2016 07:46 A
--- NOTE | 2016-09-29 08:28 | ECGEPIP ---
Stationary ECG Study [facility] - ED Test Date: 2016-09-28 Pat Name: JOHNNY GILES Department: Room: - Gender: M Powder Compounder: Living[place]B: 1960 Requested By: Cristino Briceno Order Number: [id number] Reading MD: Cristino Brewer Measurements Intervals [place] Rate: 85 P: -36 [place]: 176 QRS: -78 QRSD: 154 T: 29 QT: 405 QTc: 482 Interpretive Statements SINUS RHYTHM MARKED LEFT AXIS DEVIATION RIGHT BUNDLE BRANCH BLOCK SIMILAR TO 09/21/16 Electronically Signed On 09-29-2016 8:28:27 EDT by Cristino Brewer
== END 2016-09-28 21:51 | disposition home or self-care (01) ==
LOC: EDBD 18:56 → M ED 18:56
DX: R07.89 Other chest pain (principal); N18.6 End stage renal disease; E11.9 Type 2 diabetes mellitus without complications; I12.0 Hypertensive chronic kidney disease with stage 5 chronic kidney disease or end stage renal disease; E78.5 Hyperlipidemia, unspecified; F17.210 Nicotine dependence, cigarettes, uncomplicated; Z88.1 Allergy status to other antibiotic agents; Z88.8 Allergy status to other drugs, medicaments and biological substances; Z91.018 Allergy to other foods; Z79.82 Long term (current) use of aspirin; Z79.4 Long term (current) use of insulin; Z79.899 Other long term (current) drug therapy

== ENCOUNTER 2016-10-01 21:17 | Emergency (ER) | payer MEDICARE, MEDICAID ==
[~2016-10-01] VITALS: Ht 190.5 cm; Wt 93.2 kg
[2016-10-01] MEDS: IPRATROPIUM 0.5MG/ALBUTEROL 2.5MG INH SOL UD 3ML (DUONEB)(J7620) NEB PRN ×2 (21:52→21:53)
[2016-10-01 21:57] LABS: BASO # 0.1 K/mm3 (0.0-0.2); BASO % 1.2 % (0.0-1.0); EOS # 0.6 K/mm3 (0.0-0.50); EOS % 9.9 % (0.0-3.0); LARGE UNSTAINED CELL # 0.1 K/mm3 (0.0-0.4); LARGE UNSTAINED CELL % 1.6 % (0.0-4.0); LYMPH % 14.1 % (24.0-44.0); MEAN CORPUSCULAR HEMOGLOBIN 32.5 pg (27.0-33.0); MEAN CORPUSCULAR HGB CONC 32.9 g/dl (32.0-36.5); MONO # 0.6 K/mm3 (0.0-0.8); MONO % 8.8 % (0.0-5.0); NEUTROPHILS # 4.2 K/mm3 (1.8-7.7); NEUTROPHILS % 64.4 % (36.0-66.0); PLATELET COUNT, AUTOMATED 191 k/mm3 (150-450); RED CELL DISTRIBUTION WIDTH 16.3 % (11.5-14.5); WHITE BLOOD COUNT 6.4 K/mm3 (4.0-10.0)
[2016-10-01 21:59] LABS: VENOUS PARTIAL PRESSURE CO2 47.1 mmHg (38.0-50.0); VENOUS PARTIAL PRESSURE O2 47.7 mmHg (30.0-50.0); VENOUS STANDARD HCO3 26.8 MEQ/L; VENOUS TOTAL CO2 29.9 MEQ/L (24.0-28.0)
[2016-10-01] MEDS ORDERED: ALBUTEROL 90 MCG/ACT 8GM HFA INHALER INH ONE (22:30)
[2016-10-01 22:36] VITALS: BP 175/81
[2016-10-01 22:37] LABS: CALCIUM LEVEL 9.4 MG/DL (8.5-10.1); CREATININE FOR GFR 5.15 MG/DL (0.70-1.30); GLOMERULAR FILTRATION RATE 12.3 (>56); POTASSIUM SERUM 4.6 MEQ/L (3.5-5.1)
--- NOTE | 2016-10-02 07:49 | REP ---
Portable chest, single AP view, 09:51 p.m.: Comparison 09/28/2016. Sternotomy wires and cardiomegaly are again identified, unchanged. The lung rivera are clear except for minor discoid atelectasis in the right mid lung. The previously identified vascular stent superimposed over the cardiac silhouette on the right is obscured on the current study by under penetration. Impression: Minor discoid atelectasis in the right mid lung. Signed by Car Glover MD 10/02/2016 07:41 A
--- NOTE | 2016-10-02 11:25 | ECGEPIP ---
Stationary ECG Study [facility] - ED Test Date: 2016-10-01 Pat Name: JOHNNY GILES Department: Room: - Gender: M Pathology Laboratory Director: freeman : 1960 Requested By: CLAUDIA MENDEZ Order Number: [id number] Reading MD: Elissa Medellin Measurements Intervals [place] Rate: 85 P: 31 [place]: 191 QRS: -81 QRSD: 161 T: 53 QT: 413 QTc: 491 Interpretive Statements SINUS RHYTHM RIGHT BUNDLE BRANCH BLOCK LEFT ANTERIOR FASCICULAR BLOCK SIMILAR 09/28/16 Electronically Signed On 10-02-2016 11:24:55 EDT by Elissa Medellin
== END 2016-10-01 22:56 | disposition home or self-care (01) ==
LOC: M ED 21:17 → EDBD 21:17 → M ED 22:56
DX: J44.1 Chronic obstructive pulmonary disease with (acute) exacerbation (principal); I12.0 Hypertensive chronic kidney disease with stage 5 chronic kidney disease or end stage renal disease; I25.10 Atherosclerotic heart disease of native coronary artery without angina pectoris; N18.6 End stage renal disease; Z99.2 Dependence on renal dialysis; Z95.1 Presence of aortocoronary bypass graft; Z98.61 Coronary angioplasty status; Z88.8 Allergy status to other drugs, medicaments and biological substances; Z91.018 Allergy to other foods; Z91.048 Other nonmedicinal substance allergy status; Z79.82 Long term (current) use of aspirin; Z79.4 Long term (current) use of insulin; Z79.899 Other long term (current) drug therapy; Z79.52 Long term (current) use of systemic steroids

== ENCOUNTER → 2016-10-07 | Outpatient (CLI) | payer MEDICARE, MEDICAID ==
[~2016-10-07] MED LIST changes: +CYCL10TA PO; +LEVA1TAB PO; +MUCI600T37 PO; +PRED50TA PO
--- NOTE | 2016-10-07 12:55 | REP ---
Chest two views HISTORY: Pneumonia Comparison: 10/01/2016 The lungs are clear. The heart is normal in size. The pulmonary vasculature is normal in appearance. The bony structure is intact. IMPRESSION: No acute disease. Signed by Julian Briggs MD 10/07/2016 12:47 P
== END ==
LOC: M SMT 10:32
PROVIDERS: ATTEND Internal Medicine Nephrology
DX: J18.9 Pneumonia, unspecified organism (principal)

== ENCOUNTER 2016-10-14 00:14 | Emergency (ER) | payer MEDICARE, MEDICAID ==
[~2016-10-14] VITALS: Ht 190.5 cm; Wt 93.0 kg
[~2016-10-14 00:14] MED LIST changes: -CYCL10TA PO; -LEVA1TAB PO; -MUCI600T37 PO; -PRED50TA PO
[2016-10-14] MEDS ORDERED: methylPREDNISolone INJ 125 MG/2 ML VIAL (J2930) IV ONE (01:30)
[2016-10-14] MEDS: IPRATROPIUM 0.5MG/ALBUTEROL 2.5MG INH SOL UD 3ML (DUONEB)(J7620) NEB PRN ×2 (01:41→02:21)
[2016-10-14 01:58] LABS: BASO # 0.1 K/mm3 (0.0-0.2); BASO % 1.3 % (0.0-1.0); EOS # 1.1 K/mm3 (0.0-0.50); LARGE UNSTAINED CELL # 0.1 K/mm3 (0.0-0.4); LARGE UNSTAINED CELL % 1.2 % (0.0-4.0); LYMPH # 0.8 K/mm3 (1.5-4.5); LYMPH % 8.1 % (24.0-44.0); MEAN CORPUSCULAR HEMOGLOBIN 32.7 pg (27.0-33.0); MEAN CORPUSCULAR HGB CONC 32.9 g/dl (32.0-36.5); MEAN CORPUSCULAR VOLUME 99.2 fl (80.0-96.0); MONO # 0.7 K/mm3 (0.0-0.8); MONO % 7.9 % (0.0-5.0); NEUTROPHILS # 5.6 K/mm3 (1.8-7.7); NEUTROPHILS % 68.5 % (36.0-66.0); PLATELET COUNT, AUTOMATED 197 k/mm3 (150-450); RED CELL DISTRIBUTION WIDTH 16.5 % (11.5-14.5); WHITE BLOOD COUNT 8.2 K/mm3 (4.0-10.0)
[2016-10-14 01:59] LABS: ABG BASE EXCESS 5.8 (-2.0-2.0); ABG HCO3 29.9 MEQ/L (22.0-26.0); ABG PARTIAL PRESSURE CO2 41.6 mmHg (35.0-45.0); ABG PARTIAL PRESSURE O2 85.6 mmHg (75.0-100.0); ABG STANDARD HCO3 29.7 MEQ/L (22.0-26.0); ABG TOTAL CO2 31.2 MEQ/L (22.0-29.0); ABG pH (ARTERIAL) 7.475 UNITS (7.350-7.450)
[2016-10-14 02:24] LABS: CALCIUM LEVEL 9.7 MG/DL (8.5-10.1); CREATININE FOR GFR 5.49 MG/DL (0.70-1.30); GLOMERULAR FILTRATION RATE 11.4 (>56)
[2016-10-14 02:32] LABS: POTASSIUM SERUM 5.8 MEQ/L (3.5-5.1)
[2016-10-14 04:12] VITALS: BP 178/82
[2016-10-14] MEDS ORDERED: PRED20TA PO (04:18)
--- NOTE | 2016-10-14 08:03 | REP ---
PA and lateral chest: Comparison is 2016. There are no focal infiltrates. There are no pleural effusions. Lung rivera otherwise clear and unchanged. There are sternotomy wires are again identified. Cardiac size is upper normal. The nba, mediastinum, and bony thorax are unremarkable. Impression: There is no interval change. Signed by Car Glover MD 10/14/2016 07:54 A
--- NOTE | 2016-10-14 10:49 | ECGEPIP ---
Stationary ECG Study [facility] - ED Test Date: 2016-10-14 Pat Name: JOHNNY GILES Department: Room: - Gender: M Director Food And Beverage: dario : 1960 Requested By: KATHY Singh Order Number: [id number] Reading MD: Elissa Medellin Measurements Intervals [place] Rate: 91 P: 30 [place]: 175 QRS: 204 QRSD: 158 T: 30 QT: 388 QTc: 477 Interpretive Statements SINUS RHYTHM INDETERMINATE AXIS RIGHT BUNDLE BRANCH BLOCK AND POSSIBLE RIGHT VENTRICULAR HYPERTROPHY SIMILAR 10/01/16 Electronically Signed On 10-14-2016 10:49:02 EDT by Elissa Medellin
== END 2016-10-14 04:40 | disposition home or self-care (01) ==
LOC: M ED 00:14
DX: J44.9 Chronic obstructive pulmonary disease, unspecified (principal); I50.9 Heart failure, unspecified; N18.6 End stage renal disease; Z99.2 Dependence on renal dialysis; Z72.0 Tobacco use
CPT/HCPCS: 36600; 71020; 80048; 82550; 82553; 82803; 83880; 84484; 85025; 87040; 93005; 93041; 94640; 94760; 96374; 99285; J2930

== ENCOUNTER 2016-10-18 19:41 | Emergency (ER) | payer MEDICARE, MEDICAID ==
[~2016-10-18] VITALS: Ht 190.5 cm; Wt 88.2 kg
[2016-10-18] MEDS ORDERED: methylPREDNISolone INJ 125 MG/2 ML VIAL (J2930) IV ONE (20:00)
[2016-10-18] MEDS: IPRATROPIUM 0.5MG/ALBUTEROL 2.5MG INH SOL UD 3ML (DUONEB)(J7620) NEB PRN ×2 (20:35→20:36)
[2016-10-18 20:52] LABS: BASO % 0.1 % (0.0-1.0); EOS # 0.3 K/mm3 (0.0-0.50); EOS % 2.8 % (0.0-3.0); LARGE UNSTAINED CELL # 0.1 K/mm3 (0.0-0.4); LARGE UNSTAINED CELL % 0.8 % (0.0-4.0); LYMPH # 0.5 K/mm3 (1.5-4.5); MEAN CORPUSCULAR HEMOGLOBIN 32.5 pg (27.0-33.0); MEAN CORPUSCULAR HGB CONC 31.9 g/dl (32.0-36.5); MEAN CORPUSCULAR VOLUME 101.9 fl (80.0-96.0); MONO # 0.6 K/mm3 (0.0-0.8); MONO % 6.9 % (0.0-5.0); NEUTROPHILS # 7.7 K/mm3 (1.8-7.7); NEUTROPHILS % 84.4 % (36.0-66.0); PLATELET COUNT, AUTOMATED 235 k/mm3 (150-450); RED CELL DISTRIBUTION WIDTH 16.4 % (11.5-14.5); WHITE BLOOD COUNT 9.2 K/mm3 (4.0-10.0)
[2016-10-18 20:58] LABS: ALBUMIN 3.6 GM/DL (3.2-5.2); BILIRUBIN,TOTAL 1.6 MG/DL (0.2-1.0); CALCIUM LEVEL 9.2 MG/DL (8.5-10.1); CREATININE FOR GFR 3.49 MG/DL (0.70-1.30); GLOMERULAR FILTRATION RATE 19.3 (>56); POTASSIUM SERUM 3.8 MEQ/L (3.5-5.1); TOTAL PROTEIN 7.2 GM/DL (6.4-8.2)
[2016-10-18 20:59] LABS: INR 1.02
[2016-10-18] MEDS ORDERED: MUCI600T37 PO (21:55)
[2016-10-18] MEDS ORDERED: LEVA1TAB PO (21:55)
[2016-10-18] MEDS ORDERED: PRED50TA PO (21:55)
[2016-10-18 21:56] VITALS: BP 162/82
[2016-10-18] MEDS ORDERED: LevoFLOXacin 250 MG TABLET PO ONE (22:00)
[2016-10-18] MEDS ORDERED: predniSONE 20 MG TAB PO ONE (22:00)
[2016-10-18] MEDS ORDERED: AZITHROMYCIN INJ 500 MG, VIAL MATE ADAPTER 1 EACH in D5W 250 ML IV ONE (22:00)
[2016-10-18] MEDS ORDERED: LevoFLOXacin 500 MG TABLET PO ONE (22:45)
[2016-10-18] MEDS ORDERED: cefTRIAXone SOD 1 GM in D5W MINI-BAG PLUS 50 ML IV ONE (23:00)
--- NOTE | 2016-10-19 07:30 | ECGEPIP ---
Stationary ECG Study [facility] - ED Test Date: 2016-10-18 Pat Name: JOHNNY GILES Department: Room: - Gender: M Magazine Writer: ct : 1960 Requested By: KADEN WRAY Order Number: [id number] Reading MD: Elissa Medellin Measurements Intervals [place] Rate: 95 P: 72 [place]: 161 QRS: 265 QRSD: 158 T: 50 QT: 395 QTc: 498 Interpretive Statements SINUS RHYTHM MARKED RIGHT AXIS DEVIATION RIGHT BUNDLE BRANCH BLOCK AND POSSIBLE RIGHT VENTRICULAR HYPERTROPHY SIMILAR 10/14/16 Electronically Signed On 10-19-2016 7:30:37 EDT by Elissa Medellin
--- NOTE | 2016-10-19 07:55 | REP ---
PA and lateral chest: Comparison is a 10/26/2016. Lung rivera are clear. Cardiac size is upper normal. The nba, mediastinum, and bony thorax are unremarkable and unchanged. There are sternotomy wires, unchanged. Impression: There are no acute cardiopulmonary findings. No interval change. Signed by Car Glover MD 10/19/2016 07:46 A
== END 2016-10-18 22:57 | disposition home or self-care (01) ==
LOC: M ED 19:41
DX: J44.1 Chronic obstructive pulmonary disease with (acute) exacerbation (principal); J18.9 Pneumonia, unspecified organism; N18.6 End stage renal disease; E11.9 Type 2 diabetes mellitus without complications; Z99.2 Dependence on renal dialysis; Z72.0 Tobacco use
CPT/HCPCS: 71020; 80048; 80076; 82550; 82553; 83605; 83880; 84436; 84443; 84484; 85025; 85610; 86140; 87040; 87486; 87581; 87633; 87798; 93005; 93041; 94640; 94760; 96374; 96375; 99284; J0456; J0696; J2930

== ENCOUNTER 2016-10-29 06:16 | Emergency (ER) | payer MEDICARE, MEDICAID ==
[~2016-10-29] VITALS: Ht 190.5 cm; Wt 88.6 kg
[~2016-10-29 06:16] MED LIST changes: +LEVA1TAB PO; +MUCI600T37 PO; +PRED50TA PO
[2016-10-29] MEDS ORDERED: CYCL10TA PO (06:38)
[2016-10-29 07:14] VITALS: BP 167/82
== END 2016-10-29 07:15 | disposition home or self-care (01) ==
LOC: M ED 06:16
DX: M54.12 Radiculopathy, cervical region (principal); Z72.0 Tobacco use

== ENCOUNTER 2016-12-07 20:20 | Emergency (ER) | payer MEDICARE, MEDICAID ==
[~2016-12-07] VITALS: Ht 190.5 cm; Wt 88.2 kg
[~2016-12-07 20:20] MED LIST changes: +CYCL10TA PO
[2016-12-07] MEDS ORDERED: ASPIRIN 81 MG CHEW TABLET PO ONE (21:15)
[2016-12-07] MEDS ORDERED: IPRATROPIUM 0.5MG/ALBUTEROL 2.5MG INH SOL UD 3ML (DUONEB)(J7620) NEB ONE (21:15)
[2016-12-07] MEDS ORDERED: NITROGLYCERIN 0.4 MG SUBL TABLET SL PRN (21:15)
[2016-12-07 21:41] LABS: VENOUS BASE EXCESS 3.4 (-2.0-2.0); VENOUS O2 SATURATION 86.9 % (60.0-80.0); VENOUS PARTIAL PRESSURE CO2 46.5 mmHg (38.0-50.0); VENOUS PARTIAL PRESSURE O2 52.3 mmHg (30.0-50.0); VENOUS STANDARD HCO3 27.3 MEQ/L; VENOUS TOTAL CO2 30.1 MEQ/L (24.0-28.0)
[2016-12-07 21:45] LABS: ADD MORPHOLOGY? NO; BASO # 0.1 10^3/uL (0.0-0.2); BASO % 0.8 % (0.0-1.0); EOS # 0.4 10^3/uL (0.0-0.50); EOS % 5.2 % (0.0-3.0); IMMATURE GRANULOCYTE % 0.4 % (0-0); MEAN CORPUSCULAR HEMOGLOBIN 32.1 pg (27.0-33.0); MEAN CORPUSCULAR VOLUME 100.3 fl (80.0-96.0); MONO # 0.9 10^3/uL (0.0-0.8); NEUTROPHILS # 4.8 10^3/uL (1.8-7.7); NEUTROPHILS % 66.6 % (36.0-66.0); PLATELET COUNT, AUTOMATED 183 10^3/uL (150-450); WHITE BLOOD COUNT 7.2 10^3/uL (4.0-10.0)
[2016-12-07 21:55] LABS: INR 1.1
[2016-12-07 22:10] LABS: CALCIUM LEVEL 9.3 MG/DL (8.5-10.1); CREATININE FOR GFR 4.05 MG/DL (0.70-1.30); GLOMERULAR FILTRATION RATE 16.3 (>56)
[2016-12-07 22:23] LABS: POTASSIUM SERUM 5.7 MEQ/L (3.5-5.1)
[2016-12-07 23:27] VITALS: BP 166/90
[2016-12-08] MEDS ORDERED: diphenhydrAMINE 25 MG CAP PO ONE (04:15)
[2016-12-08 04:18] VITALS: BP 188/96
--- NOTE | 2016-12-08 07:39 | REP ---
PA and lateral chest: Comparison is 10/18/2016. There are sternotomy wires, unchanged. Cardiac size is upper normal, unchanged. There are no infiltrates, effusions or masses. Lung rivera are clear and unchanged. The nba, mediastinum, and bony thorax are unchanged. There are surgical clips in the mediastinum, and probable coronary artery vascular stent. These are unchanged. Impression: There is no interval change. Signed by Car Glover MD 12/08/2016 07:31 A
--- NOTE | 2016-12-09 09:12 | ECGEPIP ---
Stationary ECG Study [facility] - ED Test Date: 2016-12-08 Pat Name: JOHNNY GILES Department: Room: - Gender: M Enroller: LivingstonB: 1960 Requested By: KATHY Singh Order Number: [id number] Reading MD: Elissa Medellin Measurements Intervals [place] Rate: 98 P: 47 [place]: 142 QRS: 231 QRSD: 164 T: 51 QT: 373 QTc: 477 Interpretive Statements SINUS RHYTHM MARKED RIGHT AXIS DEVIATION RIGHT BUNDLE BRANCH BLOCK AND POSSIBLE RIGHT VENTRICULAR HYPERTROPHY SIMILAR 12/07/16 20:53 Electronically Signed On 12-09-2016 9:12:41 EDT by Eilssa Medellin
--- NOTE | 2016-12-09 09:12 | ECGEPIP ---
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
== END 2016-12-08 04:42 | disposition home or self-care (01) ==
LOC: M ED 20:20
DX: R07.89 Other chest pain (principal); Z72.0 Tobacco use

== ENCOUNTER 2016-12-16 09:25 | Emergency (ER) | payer MEDICARE, MEDICAID ==
[~2016-12-16] VITALS: Ht 190.5 cm; Wt 87.3 kg
[2016-12-16 09:25] VITALS: BP 187/87
--- NOTE | 2016-12-16 10:14 | REP ---
CT Head without contrast HISTORY: Trauma COMPARISON: 07/16/2016 Areas of decreased attenuation are present in the right frontal and parietal lobes. There is dilatation of the overlying cortical sulci. This represents encephalomalacia. Areas of decreased attenuation are present in the the right basal ganglia , thalamus , left internal capsule and layne. These represent old lacunar infarctions. Areas of decreased attenuation are present in the periventricular white matter. This represents small-vessel ischemic disease. There is no intraparenchymal hemorrhage, acute infarct, mass or midline shift. The ventricular system and cortical sulci are dilated consistent with mild volume loss. There is no extra cerebral collection. There is no fracture. The visualized sinuses are clear. IMPRESSION: 1. Right frontal and parietal lobe encephalomalacia. 2. 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 3. Small vessel ischemic disease. 4. Mild volume loss. Signed by Julian Briggs MD 12/16/2016 10:05 A
== END 2016-12-16 10:41 | disposition home or self-care (01) ==
LOC: M ED 09:25
DX: S01.01XA Laceration without foreign body of scalp, initial encounter (principal); I25.10 Atherosclerotic heart disease of native coronary artery without angina pectoris; I10 Essential (primary) hypertension; E11.9 Type 2 diabetes mellitus without complications; J44.9 Chronic obstructive pulmonary disease, unspecified; Z72.0 Tobacco use; W01.198A Fall on same level from slipping, tripping and stumbling with subsequent striking against other object, initial encounter; Y92.099 Unspecified place in other non-institutional residence as the place of occurrence of the external cause; Y93.01 Activity, walking, marching and hiking; Y99.9 Unspecified external cause status

== ENCOUNTER 2016-12-18 22:09 | Emergency (ER) | payer MEDICARE, MEDICAID ==
[~2016-12-18] VITALS: Ht 190.5 cm; Wt 88.2 kg
[2016-12-18] MEDS ORDERED: ASPIRIN 325 MG TAB PO ONE (23:45)
[2016-12-19] MEDS ORDERED: PERCOCET 5MG/325MG TAB PO ONE (00:30)
[2016-12-19 00:44] LABS: BASO # 0.1 10^3/uL (0.0-0.2); BASO % 0.8 % (0.0-1.0); EOS # 0.2 10^3/uL (0.0-0.50); EOS % 2.7 % (0.0-3.0); IMMATURE GRANULOCYTE % 0.4 % (0-0); LYMPH # 1.1 10^3/uL (1.5-4.5); LYMPH % 14.2 % (24.0-44.0); MEAN CORPUSCULAR HEMOGLOBIN 32.3 pg (27.0-33.0); MEAN CORPUSCULAR HGB CONC 32.7 g/dl (32.0-36.5); MEAN CORPUSCULAR VOLUME 98.7 fl (80.0-96.0); MONO % 12.7 % (0.0-5.0); NEUTROPHILS # 5.4 10^3/uL (1.8-7.7); NEUTROPHILS % 69.2 % (36.0-66.0); PLATELET COUNT, AUTOMATED 205 10^3/uL (150-450); RED CELL DISTRIBUTION WIDTH 16.9 % (11.5-14.5); WHITE BLOOD COUNT 7.8 10^3/uL (4.0-10.0)
[2016-12-19 00:52] LABS: INR 1.07
[2016-12-19 00:55] LABS: CALCIUM LEVEL 9.9 MG/DL (8.5-10.1); CREATININE FOR GFR 4.71 MG/DL (0.70-1.30); GLOMERULAR FILTRATION RATE 13.7 (>56)
[2016-12-19 00:59] LABS: POTASSIUM SERUM 5.2 MEQ/L (3.5-5.1)
[2016-12-19 04:17] VITALS: BP 182/88
--- NOTE | 2016-12-19 07:46 | ECGEPIP ---
Stationary ECG Study 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
--- NOTE | 2016-12-19 07:47 | ECGEPIP ---
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
--- NOTE | 2016-12-19 08:54 | REP ---
Portable chest x-ray: Single view. History: Chest pain. Comparison study: December 07, 2016. Findings: The patient is status post prior median sternotomy. The lungs are well inflated and clear. Pulmonary vasculature is not increased. Pleural angles are sharp. No significant bony abnormality is seen. Impression: Cardiomegaly. Prior sternotomy. No acute disease. Signed by Yeison Krishnan MD 12/19/2016 02:38 P
== END 2016-12-19 04:43 | disposition home or self-care (01) ==
LOC: M ED 22:09
DX: R07.89 Other chest pain (principal); E11.9 Type 2 diabetes mellitus without complications; I11.0 Hypertensive heart disease with heart failure; J44.9 Chronic obstructive pulmonary disease, unspecified; I50.9 Heart failure, unspecified; E78.5 Hyperlipidemia, unspecified; I73.9 Peripheral vascular disease, unspecified; N18.9 Chronic kidney disease, unspecified; Z95.1 Presence of aortocoronary bypass graft; Z79.899 Other long term (current) drug therapy; Z79.82 Long term (current) use of aspirin; Z79.4 Long term (current) use of insulin; Z88.8 Allergy status to other drugs, medicaments and biological substances; Z91.018 Allergy to other foods; L23.1 Allergic contact dermatitis due to adhesives; F17.210 Nicotine dependence, cigarettes, uncomplicated

== ENCOUNTER 2017-01-31 23:58 | Emergency (ER) | payer MEDICARE, MEDICAID ==
[~2017-01-31] VITALS: Ht 170.2 cm; Wt 80.0 kg
[2017-02-01] MEDS ORDERED: IPRATROPIUM 0.5MG/ALBUTEROL 2.5MG INH SOL UD 3ML (DUONEB)(J7620) NEB PRN (01:30)
[2017-02-01 02:18] LABS: BASO # 0.1 10^3/uL (0.0-0.2); BASO % 1.3 % (0.0-1.0); EOS # 0.2 10^3/uL (0.0-0.50); IMMATURE GRANULOCYTE % 0.4 % (0-0); LYMPH % 12.3 % (24.0-44.0); MEAN CORPUSCULAR HEMOGLOBIN 32.9 pg (27.0-33.0); MEAN CORPUSCULAR HGB CONC 33.1 g/dl (32.0-36.5); MEAN CORPUSCULAR VOLUME 99.5 fl (80.0-96.0); MONO % 12.3 % (0.0-5.0); NEUTROPHILS # 5.6 10^3/uL (1.8-7.7); NEUTROPHILS % 70.7 % (36.0-66.0); PLATELET COUNT, AUTOMATED 209 10^3/uL (150-450); RED CELL DISTRIBUTION WIDTH 15.7 % (11.5-14.5); WHITE BLOOD COUNT 7.9 10^3/uL (4.0-10.0)
[2017-02-01 02:35] LABS: CALCIUM LEVEL 9.9 MG/DL (8.5-10.1); CREATININE FOR GFR 4.74 MG/DL (0.70-1.30); GLOMERULAR FILTRATION RATE 13.6 (>56)
[2017-02-01 05:36] VITALS: BP 150/94
--- NOTE | 2017-02-01 09:31 | REP ---
Clinical: Cough and dyspnea . Comparison: 12/18/2016 . Technique: PA and lateral. Findings: The mediastinum and cardiac silhouette are stable. Evidence for cardiomegaly with prior sternotomy, CABG, and coronary stent. The lung rivera are clear and without acute consolidation, effusion, or pneumothorax. The skeletal structures are intact and normal. Impression: 1. No acute cardiopulmonary process. Signed by Minesh Meier MD 02/01/2017 09:22 A
--- NOTE | 2017-02-02 08:53 | ECGEPIP ---
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
== END 2017-02-01 07:03 | disposition left against medical advice (07) ==
LOC: M ED 23:58
DX: R06.02 Shortness of breath (principal); J44.9 Chronic obstructive pulmonary disease, unspecified; I45.10 Unspecified right bundle-branch block; I25.10 Atherosclerotic heart disease of native coronary artery without angina pectoris; I50.9 Heart failure, unspecified; I25.2 Old myocardial infarction; N18.6 End stage renal disease; Z99.2 Dependence on renal dialysis; Z87.891 Personal history of nicotine dependence; Z79.899 Other long term (current) drug therapy; Z79.4 Long term (current) use of insulin; Z79.82 Long term (current) use of aspirin; Z79.02 Long term (current) use of antithrombotics/antiplatelets

== ENCOUNTER 2017-03-06 01:05 | Inpatient (IN) | payer MEDICARE, MEDICAID ==
[2017-03-06] MEDS: IPRATROPIUM 0.5MG/ALBUTEROL 2.5MG INH SOL UD 3ML (DUONEB)(J7620) NEB ×8 (01:31→23:27)
[2017-03-06 01:57] LABS: BASO # 0.1 10^3/uL (0.0-0.2); BASO % 0.6 % (0.0-1.0); EOS # 0.3 10^3/uL (0.0-0.50); EOS % 3.3 % (0.0-3.0); HEMATOCRIT 35.1 % (42.0-52.0); HEMOGLOBIN 11.5 g/dl (14.0-18.0); IMMATURE GRANULOCYTE % 0.2 % (0-0); LYMPH # 1.3 10^3/uL (1.5-4.5); LYMPH % 13.7 % (24.0-44.0); MEAN CORPUSCULAR HEMOGLOBIN 32.9 pg (27.0-33.0); MEAN CORPUSCULAR HGB CONC 32.8 g/dl (32.0-36.5); MEAN CORPUSCULAR VOLUME 100.3 fl (80.0-96.0); MONO # 1.5 10^3/uL (0.0-0.8); MONO % 16.3 % (0.0-5.0); NEUTROPHILS # 6.1 10^3/uL (1.8-7.7); NEUTROPHILS % 65.9 % (36.0-66.0); PLATELET COUNT, AUTOMATED 203 10^3/uL (150-450); RED CELL DISTRIBUTION WIDTH 15.5 % (11.5-14.5); WHITE BLOOD COUNT 9.3 10^3/uL (4.0-10.0)
[2017-03-06 02:22] LABS: ANION GAP 7 MEQ/L (8-16); BLOOD UREA NITROGEN 52 MG/DL (7-18); CALCIUM LEVEL 9.4 MG/DL (8.5-10.1); CARBON DIOXIDE LEVEL 32 MEQ/L (21-32); CHLORIDE LEVEL 92 MEQ/L (98-107); CREATININE FOR GFR 5.05 MG/DL (0.70-1.30); GLOMERULAR FILTRATION RATE 12.6 (>56); GLUCOSE, FASTING 127 MG/DL (70-105); SODIUM LEVEL 131 MEQ/L (136-145)
[2017-03-06 02:24] LABS: LACTIC ACID SEPSIS PROTOCOL 1.6 MMOL/L (0.4-2.0)
[2017-03-06 02:31] LABS: POTASSIUM SERUM 6.6 MEQ/L (3.5-5.1)
[2017-03-06] MEDS: HumuLIN R (REGULAR) INSULIN (NovoLIN R) **100U/ML** PER UNIT IV (02:56)
[2017-03-06] MEDS: DEXTROSE 50% 50 ML SYRINGE IV (03:07)
[2017-03-06] MEDS: CALCIUM CHLORIDE 10% 1 GM in D5W 100 ML IV (03:12)
[2017-03-06] MEDS ORDERED: IPRATROPIUM 0.5MG/ALBUTEROL 2.5MG INH SOL UD 3ML (DUONEB)(J7620) NEB (04:00)
[2017-03-06 04:26] LABS: BEDSIDE GLUCOSE 127 MG/DL (70-105)
[2017-03-06] MEDS ORDERED: GLUCOSE 4 GM CHEW TABLET PO (05:15)
[2017-03-06] MEDS ORDERED: DEXTROSE 50% 50 ML SYRINGE IV (05:15)
[2017-03-06] MEDS ORDERED: GLUCAGON FOR INJ 1 MG VIAL (J1610) SC (05:15)
[2017-03-06] MEDS ORDERED: SLF 3 ML SYR IV (05:45)
[2017-03-06] MEDS ORDERED: HEPARIN SOD (PORCINE) 5000 UNITS/ML VIAL SC (06:00)
[2017-03-06] MEDS: SLF 3 ML SYR IV ×3 (06:00→20:18)
[2017-03-06] MEDS: LOSARTAN 50 MG TAB PO (06:45)
[2017-03-06] MEDS: ISOSORBIDE MON. (IMDUR) 60 MG XR TAB PO (06:46)
[2017-03-06] MEDS: MINOXIDIL 2.5 MG TAB PO (06:46)
[2017-03-06] MEDS: amLODIPine 10 MG TAB PO (06:46)
[2017-03-06 07:29] LABS: BEDSIDE GLUCOSE 170 MG/DL (70-105)
[2017-03-06] MEDS: SANTYL OINT 30GM TOP (08:10)
[2017-03-06] MEDS: EMLA CREAM 5GM (LIDOCAINE/PRILOCAINE) TOP (08:10)
[2017-03-06] MEDS: HumaLOG INSULIN (NovoLOG) PER UNIT SC ×4 (08:29→22:34)
[2017-03-06] MEDS: LEVEMIR (INSULIN DETEMIR) 1 UNITS/0.01ML SC (08:31)
[2017-03-06] MEDS: ATORVASTATIN 20 MG TAB PO (08:31)
[2017-03-06] MEDS: OMEPRAZOLE 20 MG CAP PO (08:33)
[2017-03-06] MEDS: CLOPIDOGREL 75 MG TAB PO (08:33)
[2017-03-06] MEDS: ASPIRIN 325 MG TAB PO (08:33)
[2017-03-06] MEDS: CALCIUM ACETATE 667 MG GELCAP PO ×3 (08:34→18:49)
[2017-03-06] MEDS: OMEGA-3 1050MG CAPSULE PO (08:34)
[2017-03-06] MEDS: VITAMIN D 1,000 INTERNATIONAL UNITS TABLET PO (08:35)
[2017-03-06] MEDS: CEPACOL LOZENGE PO ×2 (08:35→20:13)
[2017-03-06] MEDS: predniSONE 20 MG TAB PO (08:35)
[2017-03-06] MEDS: CINACALCET 30 MG TAB (SENSIPAR) PO (08:37)
[2017-03-06] MEDS: FUROSEMIDE 80 MG TAB PO (08:40)
[2017-03-06] MEDS ORDERED: CINACALCET 30 MG TAB (SENSIPAR) PO (09:00)
[2017-03-06] MEDS: HEPARIN 1,000 UNITS/ML 10ML VIAL (FOR RADIOLOGY& DIALYSIS ONLY) IV (09:26)
[2017-03-06 10:46] LABS: ALBUMIN 2.9 GM/DL (3.2-5.2); ANION GAP 10 MEQ/L (8-16); BLOOD UREA NITROGEN 49 MG/DL (7-18); CALCIUM LEVEL 9.7 MG/DL (8.5-10.1); CARBON DIOXIDE LEVEL 28 MEQ/L (21-32); CHLORIDE LEVEL 95 MEQ/L (98-107); CREATININE FOR GFR 4.29 MG/DL (0.70-1.30); GLOMERULAR FILTRATION RATE 15.2 (>56); GLUCOSE, FASTING 157 MG/DL (70-105); PHOSPHORUS LEVEL 2.9 MG/DL (2.5-4.9); POTASSIUM SERUM 4.4 MEQ/L (3.5-5.1); SODIUM LEVEL 133 MEQ/L (136-145)
[2017-03-06 14:33] LABS: BEDSIDE GLUCOSE 112 MG/DL (70-105)
[2017-03-06 16:59] LABS: BEDSIDE GLUCOSE 213 MG/DL (70-105)
[2017-03-06 20:33] LABS: BEDSIDE GLUCOSE 251 MG/DL (70-105)
[2017-03-07] MEDS: CEPACOL LOZENGE PO ×4 (02:01→21:04)
[2017-03-07] MEDS: IPRATROPIUM 0.5MG/ALBUTEROL 2.5MG INH SOL UD 3ML (DUONEB)(J7620) NEB ×6 (02:06→23:29)
[2017-03-07 05:11] LABS: HEMATOCRIT 30.1 % (42.0-52.0); HEMOGLOBIN 9.9 g/dl (14.0-18.0); MEAN CORPUSCULAR HEMOGLOBIN 32.6 pg (27.0-33.0); MEAN CORPUSCULAR HGB CONC 32.9 g/dl (32.0-36.5); PLATELET COUNT, AUTOMATED 186 10^3/uL (150-450); RED BLOOD COUNT 3.04 10^6/uL (4.30-6.10); RED CELL DISTRIBUTION WIDTH 15.5 % (11.5-14.5); WHITE BLOOD COUNT 8.5 10^3/uL (4.0-10.0)
[2017-03-07 05:23] LABS: ANION GAP 10 MEQ/L (8-16); BLOOD UREA NITROGEN 31 MG/DL (7-18); CALCIUM LEVEL 9.3 MG/DL (8.5-10.1); CARBON DIOXIDE LEVEL 27 MEQ/L (21-32); CHLORIDE LEVEL 94 MEQ/L (98-107); CREATININE FOR GFR 3.24 MG/DL (0.70-1.30); GLUCOSE, FASTING 184 MG/DL (70-105); PHOSPHORUS LEVEL 3.2 MG/DL (2.5-4.9); POTASSIUM SERUM 4.1 MEQ/L (3.5-5.1); SODIUM LEVEL 131 MEQ/L (136-145)
[2017-03-07] MEDS: SLF 3 ML SYR IV ×3 (06:00→21:04)
[2017-03-07] MEDS: LEVEMIR (INSULIN DETEMIR) 1 UNITS/0.01ML SC (08:01)
[2017-03-07] MEDS: amLODIPine 10 MG TAB PO (08:02)
[2017-03-07] MEDS: HumaLOG INSULIN (NovoLOG) PER UNIT SC ×4 (08:02→21:09)
[2017-03-07] MEDS: VITAMIN D 1,000 INTERNATIONAL UNITS TABLET PO (08:02)
[2017-03-07] MEDS: ATORVASTATIN 20 MG TAB PO (08:03)
[2017-03-07] MEDS: LOSARTAN 50 MG TAB PO (08:03)
[2017-03-07] MEDS: CALCIUM ACETATE 667 MG GELCAP PO ×3 (08:03→17:23)
[2017-03-07] MEDS: OMEGA-3 1050MG CAPSULE PO (08:03)
[2017-03-07] MEDS: predniSONE 20 MG TAB PO (08:03)
[2017-03-07] MEDS: ASPIRIN 325 MG TAB PO (08:04)
[2017-03-07] MEDS: ISOSORBIDE MON. (IMDUR) 60 MG XR TAB PO (08:04)
[2017-03-07] MEDS: CLOPIDOGREL 75 MG TAB PO (08:04)
[2017-03-07] MEDS: MINOXIDIL 2.5 MG TAB PO (08:04)
[2017-03-07] MEDS: OMEPRAZOLE 20 MG CAP PO (08:04)
[2017-03-07] MEDS: CINACALCET 30 MG TAB (SENSIPAR) PO (08:07)
[2017-03-07] MEDS: FUROSEMIDE 80 MG TAB PO (08:07)
[2017-03-07] MEDS ORDERED: BENZONATATE 100 MG CAP PO (09:45)
[2017-03-07 12:07] LABS: BEDSIDE GLUCOSE 209 MG/DL (70-105)
[2017-03-07] MEDS: BENZONATATE 100 MG CAP PO (12:07)
[2017-03-07] MEDS: guaiFENesin ER 600 MG TAB PO ×2 (12:07→21:04)
[2017-03-07 16:42] LABS: BEDSIDE GLUCOSE 228 MG/DL (70-105)
[2017-03-07 21:36] LABS: BEDSIDE GLUCOSE 235 MG/DL (70-105)
[2017-03-07 22:52] LABS: POTASSIUM SERUM 4.9 MEQ/L (3.5-5.1)
[2017-03-08] MEDS: CEPACOL LOZENGE PO ×2 (00:49→09:08)
[2017-03-08] MEDS: IPRATROPIUM 0.5MG/ALBUTEROL 2.5MG INH SOL UD 3ML (DUONEB)(J7620) NEB ×4 (03:29→12:22)
[2017-03-08 05:15] LABS: HEMATOCRIT 30.6 % (42.0-52.0); HEMOGLOBIN 10.3 g/dl (14.0-18.0); MEAN CORPUSCULAR HEMOGLOBIN 32.7 pg (27.0-33.0); MEAN CORPUSCULAR HGB CONC 33.7 g/dl (32.0-36.5); MEAN CORPUSCULAR VOLUME 97.1 fl (80.0-96.0); PLATELET COUNT, AUTOMATED 208 10^3/uL (150-450); RED BLOOD COUNT 3.15 10^6/uL (4.30-6.10); RED CELL DISTRIBUTION WIDTH 15.3 % (11.5-14.5)
[2017-03-08] MEDS: SLF 3 ML SYR IV (05:18)
[2017-03-08 05:35] LABS: ALBUMIN 3.2 GM/DL (3.2-5.2); ANION GAP 13 MEQ/L (8-16); BLOOD UREA NITROGEN 47 MG/DL (7-18); CALCIUM LEVEL 9.5 MG/DL (8.5-10.1); CARBON DIOXIDE LEVEL 26 MEQ/L (21-32); CHLORIDE LEVEL 88 MEQ/L (98-107); CREATININE FOR GFR 4.17 MG/DL (0.70-1.30); GLOMERULAR FILTRATION RATE 15.7 (>56); GLUCOSE, FASTING 183 MG/DL (70-105); PHOSPHORUS LEVEL 3.2 MG/DL (2.5-4.9); SODIUM LEVEL 127 MEQ/L (136-145)
[2017-03-08 06:09] LABS: CK-MB VALUE MASS 7.9 NG/ML (0.0-3.6); CPK CREATINE PHOSPHOKINASE 156 U/L (39-308); MB/CK RELATIVE INDEX 5.06 (< OR =4); TROPONIN I 0.81 NG/ML (< 0.10)
[2017-03-08 06:38] LABS: MYOGLOBIN > 500 NG/ML (16-116)
[2017-03-08] MEDS: HumaLOG INSULIN (NovoLOG) PER UNIT SC ×2 (08:12→12:40)
[2017-03-08] MEDS: LEVEMIR (INSULIN DETEMIR) 1 UNITS/0.01ML SC (08:12)
[2017-03-08] MEDS: ATORVASTATIN 20 MG TAB PO (08:13)
[2017-03-08] MEDS: ASPIRIN 325 MG TAB PO (08:13)
[2017-03-08] MEDS: CALCIUM ACETATE 667 MG GELCAP PO ×2 (08:13→12:39)
[2017-03-08] MEDS: LOSARTAN 50 MG TAB PO (08:14)
[2017-03-08] MEDS: predniSONE 20 MG TAB PO (08:15)
[2017-03-08] MEDS: amLODIPine 10 MG TAB PO (08:15)
[2017-03-08] MEDS: CLOPIDOGREL 75 MG TAB PO (08:15)
[2017-03-08] MEDS: ISOSORBIDE MON. (IMDUR) 60 MG XR TAB PO (08:15)
[2017-03-08] MEDS: FUROSEMIDE 80 MG TAB PO (08:15)
[2017-03-08] MEDS: guaiFENesin ER 600 MG TAB PO (08:16)
[2017-03-08] MEDS: MINOXIDIL 2.5 MG TAB PO (08:16)
[2017-03-08] MEDS: VITAMIN D 1,000 INTERNATIONAL UNITS TABLET PO (08:16)
[2017-03-08] MEDS: OMEPRAZOLE 20 MG CAP PO (08:16)
[2017-03-08] MEDS: OMEGA-3 1050MG CAPSULE PO (08:16)
[2017-03-08] MEDS: CINACALCET 30 MG TAB (SENSIPAR) PO (08:16)
[2017-03-08] MEDS ORDERED: HEPARIN 1,000 UNITS/ML 10ML VIAL (FOR RADIOLOGY& DIALYSIS ONLY) IV (10:45)
[2017-03-08] MEDS ORDERED: LIDOCAINE 1% SDV 5 ML VIAL SQ (10:45)
[2017-03-08 12:26] LABS: BEDSIDE GLUCOSE 146 MG/DL (70-105)
== END 2017-03-08 15:17 | disposition home or self-care (01) | DRG 190 ==
LOC: M PCU 03-07 18:28 → M ED 01:05 → M ED INP 01:06 → M PCU 05:21
DX: J44.1 Chronic obstructive pulmonary disease with (acute) exacerbation (principal); N18.6 End stage renal disease; I50.23 Acute on chronic systolic (congestive) heart failure; I13.2 Hypertensive heart and chronic kidney disease with heart failure and with stage 5 chronic kidney disease, or end stage renal disease; E78.00 Pure hypercholesterolemia, unspecified; E87.5 Hyperkalemia; I25.10 Atherosclerotic heart disease of native coronary artery without angina pectoris; D63.1 Anemia in chronic kidney disease; K21.9 Gastro-esophageal reflux disease without esophagitis; E11.621 Type 2 diabetes mellitus with foot ulcer; I48.0 Paroxysmal atrial fibrillation; E11.51 Type 2 diabetes mellitus with diabetic peripheral angiopathy without gangrene; Z99.2 Dependence on renal dialysis; Z79.02 Long term (current) use of antithrombotics/antiplatelets; Z79.4 Long term (current) use of insulin; Z88.8 Allergy status to other drugs, medicaments and biological substances; Z91.018 Allergy to other foods; Z91.048 Other nonmedicinal substance allergy status; Z95.1 Presence of aortocoronary bypass graft; Z95.5 Presence of coronary angioplasty implant and graft; Z95.828 Presence of other vascular implants and grafts; Z87.891 Personal history of nicotine dependence

== ENCOUNTER 2017-03-10 21:50 | Emergency (ER) | payer MEDICARE, MEDICAID ==
[2017-03-11 00:49] LABS: BASO # 0.1 10^3/uL (0.0-0.2); BASO % 0.4 % (0.0-1.0); EOS # 0.4 10^3/uL (0.0-0.50); EOS % 2.6 % (0.0-3.0); HEMATOCRIT 34.1 % (42.0-52.0); HEMOGLOBIN 11.6 g/dl (14.0-18.0); IMMATURE GRANULOCYTE # 0.1 10^3/uL (0-0); IMMATURE GRANULOCYTE % 0.9 % (0-0); LYMPH # 1.3 10^3/uL (1.5-4.5); LYMPH % 8.6 % (24.0-44.0); MEAN CORPUSCULAR HEMOGLOBIN 32.7 pg (27.0-33.0); MEAN CORPUSCULAR VOLUME 96.1 fl (80.0-96.0); MONO # 1.4 10^3/uL (0.0-0.8); MONO % 8.9 % (0.0-5.0); NEUTROPHILS # 11.9 10^3/uL (1.8-7.7); NEUTROPHILS % 78.6 % (36.0-66.0); PLATELET COUNT, AUTOMATED 245 10^3/uL (150-450); RED BLOOD COUNT 3.55 10^6/uL (4.30-6.10); RED CELL DISTRIBUTION WIDTH 14.8 % (11.5-14.5); WHITE BLOOD COUNT 15.2 10^3/uL (4.0-10.0)
[2017-03-11] MEDS: IPRATROPIUM 0.5MG/ALBUTEROL 2.5MG INH SOL UD 3ML (DUONEB)(J7620) NEB (01:03)
[2017-03-11 01:06] LABS: ANION GAP 9 MEQ/L (8-16); BLOOD UREA NITROGEN 75 MG/DL (7-18); CARBON DIOXIDE LEVEL 27 MEQ/L (21-32); CHLORIDE LEVEL 91 MEQ/L (98-107); CREATININE FOR GFR 5.09 MG/DL (0.70-1.30); GLOMERULAR FILTRATION RATE 12.5 (>56); GLUCOSE, FASTING 139 MG/DL (70-105); SODIUM LEVEL 127 MEQ/L (136-145)
[2017-03-11 01:07] LABS: POTASSIUM SERUM 5.4 MEQ/L (3.5-5.1)
[2017-03-11] MEDS: SOD POLYSTYRENE SULFONATE SUSP 15 GM/60 ML UD PO (02:41)
== END 2017-03-11 03:15 | disposition home or self-care (01) ==
LOC: M ED 03-11 03:15
DX: N18.9 Chronic kidney disease, unspecified (principal); R06.02 Shortness of breath; E11.9 Type 2 diabetes mellitus without complications; I25.10 Atherosclerotic heart disease of native coronary artery without angina pectoris; Z99.2 Dependence on renal dialysis; Z86.718 Personal history of other venous thrombosis and embolism; Z86.73 Personal history of transient ischemic attack (TIA), and cerebral infarction without residual deficits; Z82.49 Family history of ischemic heart disease and other diseases of the circulatory system; Z79.899 Other long term (current) drug therapy; Z79.82 Long term (current) use of aspirin; Z79.4 Long term (current) use of insulin; Z79.01 Long term (current) use of anticoagulants; Z88.8 Allergy status to other drugs, medicaments and biological substances; Z91.018 Allergy to other foods; Z91.048 Other nonmedicinal substance allergy status; Z87.891 Personal history of nicotine dependence
CPT/HCPCS: 71046

== ENCOUNTER 2017-03-24 13:34 | Outpatient (RCR) | payer MEDICARE, MEDICAID | END 2017-04-08 | LOC: M PT 03-31 12:45 | DX: Z51.89 Encounter for other specified aftercare (principal); G62.9 Polyneuropathy, unspecified | CPT/HCPCS: 97110 ==

== ENCOUNTER 2017-04-09 13:14 | Outpatient (RCR) | payer MEDICARE, MEDICAID | END 2017-05-06 | LOC: M PT 04-14 12:44 | DX: Z51.89 Encounter for other specified aftercare (principal); G62.9 Polyneuropathy, unspecified | CPT/HCPCS: 97110 ==

== ENCOUNTER 2017-05-05 22:38 | Emergency (ER) | payer MEDICARE, MEDICAID ==
[2017-05-06] MEDS: ASPIRIN 81 MG CHEW TABLET PO ×2 (00:09)
[2017-05-06 00:11] LABS: INR 1.07; PROTHROMBIN TIME 14.1 SECONDS (12.4-14.5)
[2017-05-06 00:15] LABS: BASO # 0.1 10^3/uL (0.0-0.2); BASO % 1.3 % (0.0-1.0); EOS # 0.3 10^3/uL (0.0-0.50); EOS % 4.2 % (0.0-3.0); HEMATOCRIT 32.1 % (42.0-52.0); HEMOGLOBIN 10.8 g/dl (14.0-18.0); IMMATURE GRANULOCYTE % 0.5 % (0-3.0); LYMPH # 0.9 10^3/uL (1.5-4.5); LYMPH % 14.1 % (24.0-44.0); MEAN CORPUSCULAR HEMOGLOBIN 32.3 pg (27.0-33.0); MEAN CORPUSCULAR HGB CONC 33.6 g/dl (32.0-36.5); MEAN CORPUSCULAR VOLUME 96.1 fl (80.0-96.0); MONO # 1.1 10^3/uL (0.0-0.8); MONO % 16.4 % (0.0-5.0); NEUTROPHILS # 4.1 10^3/uL (1.8-7.7); NEUTROPHILS % 63.5 % (36.0-66.0); PLATELET COUNT, AUTOMATED 188 10^3/uL (150-450); RED BLOOD COUNT 3.34 10^6/uL (4.30-6.10); RED CELL DISTRIBUTION WIDTH 14.9 % (11.5-14.5); WHITE BLOOD COUNT 6.4 10^3/uL (4.0-10.0)
[2017-05-06] MEDS: IPRATROPIUM 0.5MG/ALBUTEROL 2.5MG INH SOL UD 3ML (DUONEB)(J7620) NEB ×6 (00:18→02:10)
[2017-05-06 00:41] LABS: ABG BASE EXCESS 1.8 (-2.0-2.0); ABG HCO3 25.9 MEQ/L (22.0-26.0); ABG O2 SATURATION 97.8 % (95.0-99.0); ABG PARTIAL PRESSURE CO2 38.4 mmHg (35.0-45.0); ABG PARTIAL PRESSURE O2 100.2 mmHg (75.0-100.0); ABG STANDARD HCO3 26.1 MEQ/L (22.0-26.0); ABG pH (ARTERIAL) 7.446 UNITS (7.350-7.450)
[2017-05-06 00:53] LABS: ANION GAP 10 MEQ/L (8-16); BLOOD UREA NITROGEN 48 MG/DL (7-18); CALCIUM LEVEL 9.1 MG/DL (8.5-10.1); CARBON DIOXIDE LEVEL 29 MEQ/L (21-32); CHLORIDE LEVEL 89 MEQ/L (98-107); CK-MB VALUE MASS 3.4 NG/ML (0.0-3.6); CPK CREATINE PHOSPHOKINASE 76 U/L (39-308); CREATININE FOR GFR 4.62 MG/DL (0.70-1.30); GLUCOSE, FASTING 116 MG/DL (70-100); MB/CK RELATIVE INDEX 4.47 (< OR =4); SODIUM LEVEL 128 MEQ/L (136-145); TROPONIN I 0.03 NG/ML (< 0.10)
[2017-05-06 01:00] LABS: INFLUENZA A AMPLIFICATION NEGATIVE (NEGATIVE); INFLUENZA B AMPLIFICATION NEGATIVE (NEGATIVE)
[2017-05-06 01:15] LABS: POTASSIUM SERUM 5.4 MEQ/L (3.5-5.1)
== END 2017-05-06 03:17 | disposition home or self-care (01) ==
LOC: M ED 05-06 03:17
DX: R06.02 Shortness of breath (principal); I45.10 Unspecified right bundle-branch block; I51.7 Cardiomegaly; E11.9 Type 2 diabetes mellitus without complications; I51.9 Heart disease, unspecified; I10 Essential (primary) hypertension; N18.6 End stage renal disease; Z99.2 Dependence on renal dialysis; Z86.73 Personal history of transient ischemic attack (TIA), and cerebral infarction without residual deficits; Z95.5 Presence of coronary angioplasty implant and graft; Z95.1 Presence of aortocoronary bypass graft; F17.200 Nicotine dependence, unspecified, uncomplicated; Z79.82 Long term (current) use of aspirin; Z79.899 Other long term (current) drug therapy; Z79.4 Long term (current) use of insulin; Z88.8 Allergy status to other drugs, medicaments and biological substances; Z91.018 Allergy to other foods
CPT/HCPCS: 71046

== ENCOUNTER 2017-05-20 15:20 | Inpatient (IN) | payer MEDICARE, MEDICAID ==
[2017-05-20 16:22] LABS: BASO # 0.1 10^3/uL (0.0-0.2); BASO % 0.9 % (0.0-1.0); EOS # 0.1 10^3/uL (0.0-0.50); EOS % 1.8 % (0.0-3.0); HEMATOCRIT 32.6 % (42.0-52.0); HEMOGLOBIN 10.8 g/dl (14.0-18.0); IMMATURE GRANULOCYTE % 0.4 % (0-3.0); LYMPH # 0.4 10^3/uL (1.5-4.5); LYMPH % 7.8 % (24.0-44.0); MEAN CORPUSCULAR HEMOGLOBIN 32.4 pg (27.0-33.0); MEAN CORPUSCULAR HGB CONC 33.1 g/dl (32.0-36.5); MEAN CORPUSCULAR VOLUME 97.9 fl (80.0-96.0); MONO % 18.2 % (0.0-5.0); NEUTROPHILS # 3.9 10^3/uL (1.8-7.7); NEUTROPHILS % 70.9 % (36.0-66.0); PLATELET COUNT, AUTOMATED 179 10^3/uL (150-450); RED BLOOD COUNT 3.33 10^6/uL (4.30-6.10); RED CELL DISTRIBUTION WIDTH 14.6 % (11.5-14.5); WHITE BLOOD COUNT 5.5 10^3/uL (4.0-10.0)
[2017-05-20 16:24] LABS: ALBUMIN 3.4 GM/DL (3.2-5.2); ALBUMIN/GLOBULIN RATIO 0.71 (1.00-1.93); ALKALINE PHOSPHATASE 428 U/L (45-117); ALT/SGPT 21 U/L (12-78); ANION GAP 7 MEQ/L (8-16); AST/SGOT 28 U/L (7-37); BILIRUBIN,TOTAL 1.5 MG/DL (0.2-1.0); BLOOD UREA NITROGEN 17 MG/DL (7-18); CALCIUM LEVEL 9.6 MG/DL (8.5-10.1); CARBON DIOXIDE LEVEL 33 MEQ/L (21-32); CHLORIDE LEVEL 94 MEQ/L (98-107); CPK CREATINE PHOSPHOKINASE 116 U/L (39-308); CREATININE FOR GFR 2.93 MG/DL (0.70-1.30); GLOMERULAR FILTRATION RATE 23.6 (>56); GLUCOSE, FASTING 83 MG/DL (70-100); LIPASE 123 U/L (73-393); POTASSIUM SERUM 4.2 MEQ/L (3.5-5.1); SODIUM LEVEL 134 MEQ/L (136-145); TOTAL PROTEIN 8.2 GM/DL (6.4-8.2)
[2017-05-20 16:33] LABS: INR 1.16
[2017-05-20 16:37] LABS: CK-MB VALUE MASS 9.7 NG/ML (0.0-3.6); MB/CK RELATIVE INDEX 8.36 (< OR =4); NT-PRO BNP 125642 PG/ML (<125)
[2017-05-20] MEDS: METOPROLOL 5 MG/5 ML VIAL IV ×3 (16:37→16:54)
[2017-05-20 16:40] LABS: TROPONIN I 1.57 NG/ML (< 0.10)
[2017-05-20 16:48] LABS: LACTIC ACID SEPSIS PROTOCOL 1.5 MMOL/L (0.4-2.0)
[2017-05-20] MEDS: METOPROLOL TART 50 MG TAB PO (16:54)
[2017-05-20] MEDS ORDERED: METOPROLOL TART 50 MG TAB PO (18:00)
[2017-05-20] MEDS ORDERED: BISACODYL 5 MG TAB PO (19:45)
[2017-05-20] MEDS ORDERED: HEPARIN SOD (PORCINE) 5000 UNITS/ML VIAL IV (19:45)
[2017-05-20] MEDS ORDERED: ONDANSETRON 4 MG TAB (S0181) PO (19:45)
[2017-05-20] MEDS ORDERED: GLUCOSE 4 GM CHEW TABLET PO (20:15)
[2017-05-20] MEDS ORDERED: DEXTROSE 50% 50 ML SYRINGE IV (20:15)
[2017-05-20] MEDS ORDERED: LEVALBUTEROL 1.25 MG/0.5 ML CONCENTRATE NEB INH ×2 (20:15→20:30)
[2017-05-20] MEDS ORDERED: GLUCAGON FOR INJ 1 MG VIAL (J1610) SC (20:15)
[2017-05-20 20:43] LABS: PARTIAL THROMBOPLASTIN TIME 37.3 SECONDS (26.8-37.9)
[2017-05-20 20:59] LABS: MAGNESIUM LEVEL 2.3 MG/DL (1.8-2.4)
[2017-05-20] MEDS: HumaLOG INSULIN (NovoLOG) PER UNIT SC (21:00)
[2017-05-20] MEDS: HEPARIN DRIP 25,000 UNITS in APPROPRIATE DILUENT 1 EA IV (21:11)
[2017-05-20 21:41] LABS: BEDSIDE GLUCOSE 149 MG/DL (70-105)
[2017-05-20 22:26] LABS: CK-MB VALUE MASS 17.1 NG/ML (0.0-3.6)
[2017-05-20 22:41] LABS: TROPONIN I 9.62 NG/ML (< 0.10)
[2017-05-20 22:42] LABS: CPK CREATINE PHOSPHOKINASE 222 U/L (39-308)
[2017-05-21 03:22] LABS: BASO # 0.1 10^3/uL (0.0-0.2); BASO % 1.1 % (0.0-1.0); EOS # 0.2 10^3/uL (0.0-0.50); EOS % 2.5 % (0.0-3.0); HEMATOCRIT 33.2 % (42.0-52.0); HEMOGLOBIN 10.9 g/dl (14.0-18.0); IMMATURE GRANULOCYTE % 0.4 % (0-3.0); LYMPH # 0.7 10^3/uL (1.5-4.5); LYMPH % 9.9 % (24.0-44.0); MEAN CORPUSCULAR HEMOGLOBIN 32.2 pg (27.0-33.0); MEAN CORPUSCULAR HGB CONC 32.8 g/dl (32.0-36.5); MEAN CORPUSCULAR VOLUME 97.9 fl (80.0-96.0); MONO % 14.5 % (0.0-5.0); NEUTROPHILS # 5.1 10^3/uL (1.8-7.7); NEUTROPHILS % 71.6 % (36.0-66.0); PLATELET COUNT, AUTOMATED 174 10^3/uL (150-450); RED BLOOD COUNT 3.39 10^6/uL (4.30-6.10); RED CELL DISTRIBUTION WIDTH 14.6 % (11.5-14.5); WHITE BLOOD COUNT 7.1 10^3/uL (4.0-10.0)
[2017-05-21 03:34] LABS: PARTIAL THROMBOPLASTIN TIME 65.9 SECONDS (26.8-37.9)
[2017-05-21 03:44] LABS: ANION GAP 9 MEQ/L (8-16); CARBON DIOXIDE LEVEL 30 MEQ/L (21-32); CHLORIDE LEVEL 94 MEQ/L (98-107); CREATININE FOR GFR 3.78 MG/DL (0.70-1.30); GLOMERULAR FILTRATION RATE 17.6 (>56); GLUCOSE, FASTING 116 MG/DL (70-100); POTASSIUM SERUM 4.4 MEQ/L (3.5-5.1); SODIUM LEVEL 133 MEQ/L (136-145)
[2017-05-21 03:52] LABS: BLOOD UREA NITROGEN 30 MG/DL (7-18)
[2017-05-21] MEDS: ACETAMINOPHEN TAB 650MG DOSE (2X325MG) PO (03:58)
[2017-05-21 04:02] LABS: CK-MB VALUE MASS 12.5 NG/ML (0.0-3.6); CPK CREATINE PHOSPHOKINASE 223 U/L (39-308)
[2017-05-21] MEDS: NITROGLYCERIN 0.4 MG/HR PATCH TD (04:42)
[2017-05-21] MEDS: MORPHINE 4 MG/ML 1ML VIAL (J2270) IV (04:43)
[2017-05-21] MEDS: METOPROLOL TART 50 MG TAB PO ×3 (06:00→12:14)
[2017-05-21] MEDS: CINACALCET 30 MG TAB (SENSIPAR) PO (08:03)
[2017-05-21] MEDS: ASPIRIN 81 MG ENTERIC TAB PO (08:04)
[2017-05-21] MEDS: CLOPIDOGREL 75 MG TAB PO (08:04)
[2017-05-21] MEDS: ATORVASTATIN 20 MG TAB PO (08:04)
[2017-05-21] MEDS: OMEPRAZOLE 20 MG CAP PO (08:04)
[2017-05-21] MEDS: CALCIUM ACETATE 667 MG GELCAP PO (08:04)
[2017-05-21] MEDS: OMEGA-3 1050MG CAPSULE PO (08:04)
[2017-05-21] MEDS: ISOSORBIDE MON. (IMDUR) 30 MG XR TAB PO (08:05)
[2017-05-21] MEDS: LEVEMIR (INSULIN DETEMIR) 1 UNITS/0.01ML SC (08:06)
[2017-05-21] MEDS: HumaLOG INSULIN (NovoLOG) PER UNIT SC ×2 (08:06→12:00)
[2017-05-21] MEDS ORDERED: EUCERIN 120GM CREAM TOP (09:00)
[2017-05-21] MEDS ORDERED: SANTYL OINT 30GM TOP (09:00)
[2017-05-21 11:33] LABS: PARTIAL THROMBOPLASTIN TIME 77.3 SECONDS (26.8-37.9)
[2017-05-21 11:40] LABS: BEDSIDE GLUCOSE 93 MG/DL (70-105)
[2017-05-21 11:42] LABS: CK-MB VALUE MASS 10.6 NG/ML (0.0-3.6); CPK CREATINE PHOSPHOKINASE 222 U/L (39-308); MB/CK RELATIVE INDEX 4.77 (< OR =4)
[2017-05-21] MEDS ORDERED: **NOTE PATIENT COMMENT** MISC XX (16:30)
== END 2017-05-21 13:00 | disposition short-term general hospital (02) | DRG 280 ==
LOC: M ED 15:20 → M ED INP 18:44 → M PCU 20:13
DX: I21.4 Non-ST elevation (NSTEMI) myocardial infarction (principal); N18.6 End stage renal disease; I50.22 Chronic systolic (congestive) heart failure; I13.2 Hypertensive heart and chronic kidney disease with heart failure and with stage 5 chronic kidney disease, or end stage renal disease; Z66 Do not resuscitate; I48.0 Paroxysmal atrial fibrillation; I25.10 Atherosclerotic heart disease of native coronary artery without angina pectoris; J44.9 Chronic obstructive pulmonary disease, unspecified; E11.51 Type 2 diabetes mellitus with diabetic peripheral angiopathy without gangrene; D63.1 Anemia in chronic kidney disease; K21.9 Gastro-esophageal reflux disease without esophagitis; Z99.2 Dependence on renal dialysis; Z95.828 Presence of other vascular implants and grafts; Z95.5 Presence of coronary angioplasty implant and graft; Z91.018 Allergy to other foods; Z91.048 Other nonmedicinal substance allergy status; Z88.8 Allergy status to other drugs, medicaments and biological substances; Z87.891 Personal history of nicotine dependence; Z79.82 Long term (current) use of aspirin; Z79.02 Long term (current) use of antithrombotics/antiplatelets; Z79.4 Long term (current) use of insulin

== ENCOUNTER 2017-05-29 20:57 | Emergency (ER) | payer MEDICARE, MEDICAID ==
[2017-05-29] MEDS ORDERED: IPRATROPIUM 0.5MG/ALBUTEROL 2.5MG INH SOL UD 3ML (DUONEB)(J7620) NEB (21:30)
[2017-05-29 21:47] LABS: BASO % 0.5 % (0.0-1.0); EOS # 0.4 10^3/uL (0.0-0.50); EOS % 4.1 % (0.0-3.0); HEMATOCRIT 31.4 % (42.0-52.0); HEMOGLOBIN 10.4 g/dl (14.0-18.0); IMMATURE GRANULOCYTE % 0.5 % (0-3.0); LYMPH % 11.6 % (24.0-44.0); MEAN CORPUSCULAR HEMOGLOBIN 32.4 pg (27.0-33.0); MEAN CORPUSCULAR HGB CONC 33.1 g/dl (32.0-36.5); MEAN CORPUSCULAR VOLUME 97.8 fl (80.0-96.0); MONO # 1.3 10^3/uL (0.0-0.8); MONO % 14.9 % (0.0-5.0); NEUTROPHILS # 5.9 10^3/uL (1.8-7.7); NEUTROPHILS % 68.4 % (36.0-66.0); PLATELET COUNT, AUTOMATED 170 10^3/uL (150-450); RED BLOOD COUNT 3.21 10^6/uL (4.30-6.10); RED CELL DISTRIBUTION WIDTH 14.6 % (11.5-14.5); WHITE BLOOD COUNT 8.7 10^3/uL (4.0-10.0)
[2017-05-29 22:04] LABS: INR 1.13; PROTHROMBIN TIME 14.7 SECONDS (12.4-14.5)
[2017-05-29 22:10] LABS: ALBUMIN 3.1 GM/DL (3.2-5.2); ALBUMIN/GLOBULIN RATIO 0.69 (1.00-1.93); ALKALINE PHOSPHATASE 310 U/L (45-117); ALT/SGPT 21 U/L (12-78); ANION GAP 5 MEQ/L (8-16); AST/SGOT 23 U/L (7-37); BILIRUBIN,DIRECT 0.6 MG/DL (0.0-0.2); BLOOD UREA NITROGEN 15 MG/DL (7-18); CALCIUM LEVEL 8.5 MG/DL (8.5-10.1); CARBON DIOXIDE LEVEL 34 MEQ/L (21-32); CHLORIDE LEVEL 93 MEQ/L (98-107); CREATININE FOR GFR 2.88 MG/DL (0.70-1.30); GLOMERULAR FILTRATION RATE 24.1 (>56); GLUCOSE, FASTING 111 MG/DL (70-100); SODIUM LEVEL 132 MEQ/L (136-145); TOTAL PROTEIN 7.6 GM/DL (6.4-8.2)
[2017-05-29 22:41] LABS: ABG BASE EXCESS 6.5 (-2.0-2.0); ABG HCO3 29.4 MEQ/L (22.0-26.0); ABG PARTIAL PRESSURE CO2 35.9 mmHg (35.0-45.0); ABG PARTIAL PRESSURE O2 73.3 mmHg (75.0-100.0); ABG STANDARD HCO3 30.4 MEQ/L (22.0-26.0); ABG TOTAL CO2 30.5 MEQ/L (22.0-29.0); ABG pH (ARTERIAL) 7.531 UNITS (7.350-7.450)
== END 2017-05-30 00:37 | disposition home or self-care (01) ==
LOC: M ED 05-30 00:37
DX: R06.02 Shortness of breath (principal); I45.10 Unspecified right bundle-branch block; E11.9 Type 2 diabetes mellitus without complications; I10 Essential (primary) hypertension; J98.4 Other disorders of lung; N18.6 End stage renal disease; Z99.2 Dependence on renal dialysis; Z87.891 Personal history of nicotine dependence; Z82.49 Family history of ischemic heart disease and other diseases of the circulatory system; R53.82 Chronic fatigue, unspecified; I51.7 Cardiomegaly; Z95.1 Presence of aortocoronary bypass graft; Z79.82 Long term (current) use of aspirin; Z79.4 Long term (current) use of insulin; Z79.899 Other long term (current) drug therapy; Z91.89 Other specified personal risk factors, not elsewhere classified; Z88.8 Allergy status to other drugs, medicaments and biological substances; Z91.018 Allergy to other foods
CPT/HCPCS: 71045

== ENCOUNTER 2017-06-01 16:16 | Inpatient (IN) | payer MEDICARE, MEDICAID ==
[2017-06-01] MEDS: ONDANSETRON 4MG/2ML VIAL (J2405) IV (17:20)
[2017-06-01] MEDS: ASPIRIN 81 MG CHEW TABLET PO (17:20)
[2017-06-01 17:23] LABS: BASO # 0.1 10^3/uL (0.0-0.2); BASO % 0.9 % (0.0-1.0); EOS # 0.3 10^3/uL (0.0-0.50); EOS % 3.7 % (0.0-3.0); HEMATOCRIT 36.6 % (42.0-52.0); HEMOGLOBIN 11.9 g/dl (14.0-18.0); IMMATURE GRANULOCYTE % 0.6 % (0-3.0); LYMPH # 1.3 10^3/uL (1.5-4.5); LYMPH % 14.2 % (24.0-44.0); MEAN CORPUSCULAR HEMOGLOBIN 31.6 pg (27.0-33.0); MEAN CORPUSCULAR HGB CONC 32.5 g/dl (32.0-36.5); MEAN CORPUSCULAR VOLUME 97.3 fl (80.0-96.0); MONO # 1.3 10^3/uL (0.0-0.8); MONO % 14.8 % (0.0-5.0); NEUTROPHILS # 5.9 10^3/uL (1.8-7.7); NEUTROPHILS % 65.8 % (36.0-66.0); PLATELET COUNT, AUTOMATED 208 10^3/uL (150-450); RED BLOOD COUNT 3.76 10^6/uL (4.30-6.10); RED CELL DISTRIBUTION WIDTH 14.4 % (11.5-14.5); WHITE BLOOD COUNT 8.9 10^3/uL (4.0-10.0)
[2017-06-01 17:50] LABS: ANION GAP 8 MEQ/L (8-16); CALCIUM LEVEL 9.5 MG/DL (8.5-10.1); CARBON DIOXIDE LEVEL 30 MEQ/L (21-32); CHLORIDE LEVEL 90 MEQ/L (98-107); CK-MB VALUE MASS 4.4 NG/ML (<3.6); CPK CREATINE PHOSPHOKINASE 105 U/L (39-308); GLOMERULAR FILTRATION RATE 10.3 (>56); GLUCOSE, FASTING 110 MG/DL (70-100); MB/CK RELATIVE INDEX 4.19 (< OR =4); SODIUM LEVEL 128 MEQ/L (136-145); TROPONIN I 0.09 NG/ML (< 0.10)
[2017-06-01 18:03] LABS: BLOOD UREA NITROGEN 41 MG/DL (7-18); POTASSIUM SERUM 5.3 MEQ/L (3.5-5.1)
[2017-06-01 18:06] LABS: CREATININE FOR GFR 6.03 MG/DL (0.70-1.30)
[2017-06-01] MEDS ORDERED: GLUCOSE 4 GM CHEW TABLET PO (19:15)
[2017-06-01] MEDS ORDERED: DEXTROSE 50% 50 ML SYRINGE IV (19:15)
[2017-06-01] MEDS ORDERED: GLUCAGON FOR INJ 1 MG VIAL (J1610) SC (19:15)
[2017-06-01 20:17] LABS: C REACTIVE PROTEIN QUANTITATIV 6.41 MG/DL (0.00-0.30)
[2017-06-01 20:35] LABS: ERYTHROCYTE SEDIMENTATION RATE 60 mm/hr (0-20)
[2017-06-01] MEDS: HumaLOG INSULIN (NovoLOG) PER UNIT SC (20:57)
[2017-06-01] MEDS: METOPROLOL TART 25 MG TABLET PO (21:13)
[2017-06-01] MEDS: ATORVASTATIN 20 MG TAB PO (21:13)
[2017-06-01] MEDS: HEPARIN SOD (PORCINE) 5000 UNITS/ML VIAL SC (21:13)
[2017-06-01 23:49] LABS: TROPONIN I < 0.02 NG/ML (< 0.10)
[2017-06-02] MEDS ORDERED: SLF 3 ML SYR IV (00:45)
[2017-06-02] MEDS: ACETAMINOPHEN TAB 650MG DOSE (2X325MG) PO ×2 (04:14→21:26)
[2017-06-02] MEDS: SLF 3 ML SYR IV ×3 (04:14→20:55)
[2017-06-02 05:35] LABS: HEMATOCRIT 31.5 % (42.0-52.0); HEMOGLOBIN 10.3 g/dl (14.0-18.0); MEAN CORPUSCULAR HEMOGLOBIN 31.2 pg (27.0-33.0); MEAN CORPUSCULAR HGB CONC 32.7 g/dl (32.0-36.5); MEAN CORPUSCULAR VOLUME 95.5 fl (80.0-96.0); PLATELET COUNT, AUTOMATED 185 10^3/uL (150-450); RED CELL DISTRIBUTION WIDTH 14.2 % (11.5-14.5); WHITE BLOOD COUNT 8.3 10^3/uL (4.0-10.0)
[2017-06-02 06:14] LABS: ANION GAP 9 MEQ/L (8-16); BLOOD UREA NITROGEN 47 MG/DL (7-18); CALCIUM LEVEL 8.4 MG/DL (8.5-10.1); CARBON DIOXIDE LEVEL 27 MEQ/L (21-32); CHLORIDE LEVEL 91 MEQ/L (98-107); CREATININE FOR GFR 6.17 MG/DL (0.70-1.30); GLUCOSE, FASTING 95 MG/DL (70-100); SODIUM LEVEL 127 MEQ/L (136-145); TROPONIN I 0.08 NG/ML (< 0.10)
[2017-06-02] MEDS: HEPARIN SOD (PORCINE) 5000 UNITS/ML VIAL SC ×2 (06:14→20:48)
[2017-06-02] MEDS: CALCIUM ACETATE 667 MG GELCAP PO ×3 (06:14→17:47)
[2017-06-02 06:20] LABS: POTASSIUM SERUM 5.2 MEQ/L (3.5-5.1)
[2017-06-02] MEDS: HumaLOG INSULIN (NovoLOG) PER UNIT SC ×4 (07:24→20:52)
[2017-06-02] MEDS: ASPIRIN 81 MG ENTERIC TAB PO (08:08)
[2017-06-02] MEDS: CLOPIDOGREL 75 MG TAB PO (08:08)
[2017-06-02] MEDS: METOPROLOL TART 25 MG TABLET PO ×2 (08:08→20:48)
[2017-06-02] MEDS: OMEPRAZOLE 20 MG CAP PO (08:08)
[2017-06-02] MEDS: HEPARIN 1,000 UNITS/ML 10ML VIAL (FOR RADIOLOGY& DIALYSIS ONLY) IV (10:45)
[2017-06-02 12:51] LABS: BEDSIDE GLUCOSE 86 MG/DL (70-105)
[2017-06-02 13:34] LABS: BEDSIDE GLUCOSE 93 MG/DL (70-105)
[2017-06-02 17:06] LABS: BEDSIDE GLUCOSE 123 MG/DL (70-105)
[2017-06-02] MEDS: ATORVASTATIN 20 MG TAB PO (20:48)
[2017-06-02 21:07] LABS: BEDSIDE GLUCOSE 106 MG/DL (70-105)
[2017-06-03] MEDS: ACETAMINOPHEN TAB 650MG DOSE (2X325MG) PO (04:52)
[2017-06-03] MEDS: SLF 3 ML SYR IV (04:53)
[2017-06-03 05:37] LABS: HEMATOCRIT 32.3 % (42.0-52.0); HEMOGLOBIN 10.3 g/dl (14.0-18.0); MEAN CORPUSCULAR HEMOGLOBIN 31.3 pg (27.0-33.0); MEAN CORPUSCULAR HGB CONC 31.9 g/dl (32.0-36.5); MEAN CORPUSCULAR VOLUME 98.2 fl (80.0-96.0); PLATELET COUNT, AUTOMATED 178 10^3/uL (150-450); RED BLOOD COUNT 3.29 10^6/uL (4.30-6.10); RED CELL DISTRIBUTION WIDTH 14.6 % (11.5-14.5); WHITE BLOOD COUNT 8.4 10^3/uL (4.0-10.0)
[2017-06-03 05:55] LABS: ANION GAP 5 MEQ/L (8-16); BLOOD UREA NITROGEN 34 MG/DL (7-18); CALCIUM LEVEL 9.3 MG/DL (8.5-10.1); CARBON DIOXIDE LEVEL 31 MEQ/L (21-32); CHLORIDE LEVEL 96 MEQ/L (98-107); GLUCOSE, FASTING 92 MG/DL (70-100); POTASSIUM SERUM 5.1 MEQ/L (3.5-5.1); SODIUM LEVEL 132 MEQ/L (136-145)
[2017-06-03] MEDS: HumaLOG INSULIN (NovoLOG) PER UNIT SC ×2 (07:30→11:38)
[2017-06-03] MEDS: ALBUTEROL 90 MCG/ACT 8GM HFA INHALER INH (09:09)
[2017-06-03] MEDS: ASPIRIN 81 MG ENTERIC TAB PO (09:13)
[2017-06-03] MEDS: CLOPIDOGREL 75 MG TAB PO (09:13)
[2017-06-03] MEDS: CALCIUM ACETATE 667 MG GELCAP PO ×2 (09:13→12:30)
[2017-06-03] MEDS: OMEPRAZOLE 20 MG CAP PO (09:13)
[2017-06-03] MEDS: METOPROLOL TART 25 MG TABLET PO (09:13)
[2017-06-03] MEDS: HEPARIN SOD (PORCINE) 5000 UNITS/ML VIAL SC (09:14)
[2017-06-03] MEDS: HEPARIN 1,000 UNITS/ML 10ML VIAL (FOR RADIOLOGY& DIALYSIS ONLY) IV (11:30)
[2017-06-03 11:53] LABS: BEDSIDE GLUCOSE 109 MG/DL (70-105)
== END 2017-06-03 13:06 | disposition home health service (06) | DRG 291 ==
LOC: M ED 16:16 → M ED INP 18:59 → M PCU 22:04
PROC: 5A1D70Z Performance of Urinary Filtration, Intermittent, Less than 6 Hours Per Day (ICD-10-PCS; principal; 2017-06-02)
DX: I13.2 Hypertensive heart and chronic kidney disease with heart failure and with stage 5 chronic kidney disease, or end stage renal disease (principal); I50.23 Acute on chronic systolic (congestive) heart failure; N18.6 End stage renal disease; N25.81 Secondary hyperparathyroidism of renal origin; I48.91 Unspecified atrial fibrillation; E78.5 Hyperlipidemia, unspecified; I25.10 Atherosclerotic heart disease of native coronary artery without angina pectoris; J44.9 Chronic obstructive pulmonary disease, unspecified; E11.22 Type 2 diabetes mellitus with diabetic chronic kidney disease; K21.9 Gastro-esophageal reflux disease without esophagitis; E11.51 Type 2 diabetes mellitus with diabetic peripheral angiopathy without gangrene; F17.210 Nicotine dependence, cigarettes, uncomplicated; E11.621 Type 2 diabetes mellitus with foot ulcer; L97.519 Non-pressure chronic ulcer of other part of right foot with unspecified severity; D63.1 Anemia in chronic kidney disease; Z86.73 Personal history of transient ischemic attack (TIA), and cerebral infarction without residual deficits; Z95.1 Presence of aortocoronary bypass graft; Z88.8 Allergy status to other drugs, medicaments and biological substances; Z91.018 Allergy to other foods; Z79.82 Long term (current) use of aspirin; Z79.02 Long term (current) use of antithrombotics/antiplatelets; Z79.899 Other long term (current) drug therapy; Z99.2 Dependence on renal dialysis; Z91.15 Patient's noncompliance with renal dialysis; Z89.411 Acquired absence of right great toe

== ENCOUNTER 2017-06-10 19:18 | Inpatient (IN) | payer MEDICARE, MEDICAID ==
[2017-06-10] MEDS: HEPARIN SOD (PORCINE) 5000 UNITS/ML VIAL SC (14:46)
[2017-06-10] MEDS: PIPERACILLIN/TAZOBACTAM SOD 3.375 GM in APPROPRIATE DILUENT 1 EA IV (20:00)
[2017-06-10] MEDS: NS 2,520 ML in APPROPRIATE DILUENT 1 EA IV (20:00)
[2017-06-10] MEDS: ACETAMINOPHEN TAB 650MG DOSE (2X325MG) PO (20:00)
[2017-06-10] MEDS ORDERED: ISOVUE-370 76% 100ML VIAL (Q9967) As Ordered (20:26)
[2017-06-10 20:36] LABS: BASO % 0.2 % (0.0-1.0); HEMATOCRIT 34.2 % (42.0-52.0); HEMOGLOBIN 11.3 g/dl (13.5-17.5); IMMATURE GRANULOCYTE % 1.2 % (0-3.0); LYMPH % 2.4 % (24.0-44.0); MEAN CORPUSCULAR HEMOGLOBIN 31.7 pg (27.0-33.0); MEAN CORPUSCULAR VOLUME 95.8 fl (80.0-96.0); MONO # 0.5 10^3/uL (0.0-0.8); MONO % 6.3 % (0.0-5.0); NEUTROPHILS # 7.8 10^3/uL (1.8-7.7); PLATELET COUNT, AUTOMATED 136 10^3/uL (150-450); RED BLOOD COUNT 3.57 10^6/uL (4.30-6.10); WHITE BLOOD COUNT 8.6 10^3/uL (4.0-10.0)
[2017-06-10 20:46] LABS: INR 1.31; PROTHROMBIN TIME 16.6 SECONDS (12.4-14.5)
[2017-06-10 20:47] LABS: PARTIAL THROMBOPLASTIN TIME 33.9 SECONDS (26.8-37.9)
[2017-06-10 20:54] LABS: LYMPH # 0.2 10^3/uL (1.5-4.5); POSITIVE DIFF POS FLAG
[2017-06-10 20:55] LABS: NEUTROPHILS % 89.9 % (36.0-66.0)
[2017-06-10 21:07] LABS: ALBUMIN/GLOBULIN RATIO 0.63 (1.00-1.93); ALKALINE PHOSPHATASE 680 U/L (45-117); ALT/SGPT 107 U/L (12-78); ANION GAP 12 MEQ/L (8-16); AST/SGOT 158 U/L (7-37); BILIRUBIN,DIRECT 1.5 MG/DL (0.0-0.2); BILIRUBIN,TOTAL 1.9 MG/DL (0.2-1.0); BLOOD UREA NITROGEN 47 MG/DL (7-18); CALCIUM LEVEL 8.9 MG/DL (8.5-10.1); CARBON DIOXIDE LEVEL 26 MEQ/L (21-32); CHLORIDE LEVEL 100 MEQ/L (98-107); CREATININE FOR GFR 5.87 MG/DL (0.70-1.30); GLOMERULAR FILTRATION RATE 10.6 (>56); GLUCOSE, FASTING 179 MG/DL (70-100); LIPASE 91 U/L (73-393); POTASSIUM SERUM 4.6 MEQ/L (3.5-5.1); SODIUM LEVEL 138 MEQ/L (136-145); TOTAL PROTEIN 7.8 GM/DL (6.4-8.2)
[2017-06-10 21:13] LABS: LACTIC ACID SEPSIS PROTOCOL 2.1 MMOL/L (0.4-2.0)
[2017-06-10 22:53] LABS: KETONE, URINE AUTO RFX NEGATIVE (NEGATIVE); LEUKOCYTE ESTERASE UR AUTO RFX NEGATIVE (NEGATIVE); NITRITE, URINE AUTO RFX NEGATIVE (NEGATIVE); RBC, URINE AUTO RFX 2 /HPF (0-3); SPECIFIC GRAVITY UR AUTO RFX 1.013 (1.002-1.035); SQUAM EPITHELIAL CELL UR AURFX 0 /HPF (0-6); WBC, URINE AUTO RFX 1 /HPF (0-3)
[2017-06-10 23:24] LABS: AMMONIA 26 uMOL/L (<32)
[2017-06-11] MEDS: NS 1,000 ML IV ×3 (00:03→21:01)
[2017-06-11] MEDS: VANCOMYCIN HCL 1,000 MG, VIAL MATE ADAPTER 1 EACH in D5W 250 ML IV (00:30)
[2017-06-11] MEDS: PIPERACILLIN/TAZOBACTAM SOD 2.25 GM in APPROPRIATE DILUENT 1 EA IV ×4 (02:59→21:01)
[2017-06-11] MEDS: ACETAMINOPHEN TAB 650MG DOSE (2X325MG) PO ×3 (05:07→21:06)
[2017-06-11] MEDS: HEPARIN SOD (PORCINE) 5000 UNITS/ML VIAL SC ×2 (05:07→21:00)
[2017-06-11 06:57] LABS: BASO # 0.1 10^3/uL (0.0-0.2); BASO % 0.5 % (0.0-1.0); HEMATOCRIT 28.9 % (42.0-52.0); HEMOGLOBIN 9.5 g/dl (13.5-17.5); IMMATURE GRANULOCYTE % 0.7 % (0-3.0); LYMPH # 0.3 10^3/uL (1.5-4.5); LYMPH % 3.6 % (24.0-44.0); MEAN CORPUSCULAR HGB CONC 32.9 g/dl (32.0-36.5); MEAN CORPUSCULAR VOLUME 94.4 fl (80.0-96.0); MONO # 0.4 10^3/uL (0.0-0.8); MONO % 3.9 % (0.0-5.0); NEUTROPHILS # 8.7 10^3/uL (1.8-7.7); NEUTROPHILS % 91.3 % (36.0-66.0); PLATELET COUNT, AUTOMATED 132 10^3/uL (150-450); RED BLOOD COUNT 3.06 10^6/uL (4.30-6.10); RED CELL DISTRIBUTION WIDTH 15.2 % (11.5-14.5); WHITE BLOOD COUNT 9.5 10^3/uL (4.0-10.0)
[2017-06-11 07:26] LABS: ALBUMIN 2.4 GM/DL (3.2-5.2); ALBUMIN/GLOBULIN RATIO 0.55 (1.00-1.93); ALKALINE PHOSPHATASE 463 U/L (45-117); ALT/SGPT 76 U/L (12-78); ANION GAP 11 MEQ/L (8-16); AST/SGOT 79 U/L (7-37); BILIRUBIN,TOTAL 1.8 MG/DL (0.2-1.0); BLOOD UREA NITROGEN 51 MG/DL (7-18); CARBON DIOXIDE LEVEL 23 MEQ/L (21-32); CHLORIDE LEVEL 100 MEQ/L (98-107); CREATININE FOR GFR 6.06 MG/DL (0.70-1.30); GLOMERULAR FILTRATION RATE 10.2 (>56); GLUCOSE, FASTING 219 MG/DL (70-100); POTASSIUM SERUM 4.6 MEQ/L (3.5-5.1); SODIUM LEVEL 134 MEQ/L (136-145); TOTAL PROTEIN 6.8 GM/DL (6.4-8.2)
[2017-06-11] MEDS: CLOPIDOGREL 75 MG TAB PO (08:06)
[2017-06-11] MEDS: DOCUSATE SODIUM 100 MG CAP PO (08:06)
[2017-06-11] MEDS: CALCIUM ACETATE 667 MG GELCAP PO ×3 (08:06→17:05)
[2017-06-11] MEDS: ASPIRIN 81 MG ENTERIC TAB PO (08:06)
[2017-06-11] MEDS: METOPROLOL TART 25 MG TABLET PO ×2 (08:10→21:00)
[2017-06-11] MEDS: IPRATROPIUM 0.5MG/ALBUTEROL 2.5MG INH SOL UD 3ML (DUONEB)(J7620) NEB ×4 (08:23→20:00)
[2017-06-11] MEDS: **VANCO AFTER HD** MISC XX (14:47)
[2017-06-11] MEDS: ATORVASTATIN 20 MG TAB PO (21:00)
[2017-06-12] MEDS: PIPERACILLIN/TAZOBACTAM SOD 2.25 GM in APPROPRIATE DILUENT 1 EA IV ×2 (02:19→09:00)
[2017-06-12] MEDS: HEPARIN SOD (PORCINE) 5000 UNITS/ML VIAL SC ×3 (05:56→22:14)
[2017-06-12] MEDS: CALCIUM ACETATE 667 MG GELCAP PO ×3 (05:56→17:29)
[2017-06-12] MEDS: ASPIRIN 81 MG ENTERIC TAB PO (05:56)
[2017-06-12] MEDS: CLOPIDOGREL 75 MG TAB PO (05:57)
[2017-06-12] MEDS: METOPROLOL TART 25 MG TABLET PO ×2 (05:57→22:14)
[2017-06-12 06:44] LABS: HEMATOCRIT 30.1 % (42.0-52.0); HEMOGLOBIN 9.8 g/dl (13.5-17.5); MEAN CORPUSCULAR HEMOGLOBIN 31.2 pg (27.0-33.0); MEAN CORPUSCULAR HGB CONC 32.6 g/dl (32.0-36.5); MEAN CORPUSCULAR VOLUME 95.9 fl (80.0-96.0); PLATELET COUNT, AUTOMATED 133 10^3/uL (150-450); RED BLOOD COUNT 3.14 10^6/uL (4.30-6.10); RED CELL DISTRIBUTION WIDTH 15.5 % (11.5-14.5); WHITE BLOOD COUNT 8.9 10^3/uL (4.0-10.0)
[2017-06-12 07:22] LABS: ANION GAP 10 MEQ/L (8-16); BLOOD UREA NITROGEN 57 MG/DL (7-18); CALCIUM LEVEL 8.5 MG/DL (8.5-10.1); CARBON DIOXIDE LEVEL 22 MEQ/L (21-32); CHLORIDE LEVEL 98 MEQ/L (98-107); CREATININE FOR GFR 6.69 MG/DL (0.70-1.30); GLOMERULAR FILTRATION RATE 9.1 (>56); GLUCOSE, FASTING 140 MG/DL (70-100); POTASSIUM SERUM 4.5 MEQ/L (3.5-5.1); SODIUM LEVEL 130 MEQ/L (136-145); VANCOMYCIN RANDOM 7.6 UG/ML
[2017-06-12] MEDS: IPRATROPIUM 0.5MG/ALBUTEROL 2.5MG INH SOL UD 3ML (DUONEB)(J7620) NEB ×4 (07:34→19:13)
[2017-06-12] MEDS: VANCOMYCIN HCL 1,000 MG, VIAL MATE ADAPTER 1 EACH in D5W 250 ML IV ×2 (08:00→17:29)
[2017-06-12] MEDS: ACETAMINOPHEN TAB 650MG DOSE (2X325MG) PO ×2 (11:35→18:49)
[2017-06-12] MEDS: HEPARIN 1,000 UNITS/ML 10ML VIAL (FOR RADIOLOGY& DIALYSIS ONLY) IV (11:45)
[2017-06-12] MEDS: EMLA CREAM 5GM (LIDOCAINE/PRILOCAINE) EXT (12:10)
[2017-06-12 14:58] LABS: ERYTHROCYTE SEDIMENTATION RATE 67 mm/hr (0-20)
[2017-06-12] MEDS: **VANCO AFTER HD** MISC XX (17:39)
[2017-06-12] MEDS: ATORVASTATIN 20 MG TAB PO (22:14)
[2017-06-13] MEDS: HEPARIN SOD (PORCINE) 5000 UNITS/ML VIAL SC ×3 (06:00→21:13)
[2017-06-13] MEDS: ACETAMINOPHEN TAB 650MG DOSE (2X325MG) PO ×3 (06:00→17:48)
[2017-06-13 06:53] LABS: ANION GAP 8 MEQ/L (8-16); BLOOD UREA NITROGEN 32 MG/DL (7-18); CALCIUM LEVEL 8.7 MG/DL (8.5-10.1); CARBON DIOXIDE LEVEL 26 MEQ/L (21-32); CHLORIDE LEVEL 100 MEQ/L (98-107); CREATININE FOR GFR 4.35 MG/DL (0.70-1.30); GLUCOSE, FASTING 171 MG/DL (70-100); POTASSIUM SERUM 3.8 MEQ/L (3.5-5.1); SODIUM LEVEL 134 MEQ/L (136-145)
[2017-06-13 06:56] LABS: HEMATOCRIT 28.6 % (42.0-52.0); HEMOGLOBIN 9.3 g/dl (13.5-17.5); MEAN CORPUSCULAR HEMOGLOBIN 30.9 pg (27.0-33.0); MEAN CORPUSCULAR HGB CONC 32.5 g/dl (32.0-36.5); PLATELET COUNT, AUTOMATED 136 10^3/uL (150-450); RED BLOOD COUNT 3.01 10^6/uL (4.30-6.10); RED CELL DISTRIBUTION WIDTH 15.3 % (11.5-14.5); WHITE BLOOD COUNT 7.7 10^3/uL (4.0-10.0)
[2017-06-13] MEDS: IPRATROPIUM 0.5MG/ALBUTEROL 2.5MG INH SOL UD 3ML (DUONEB)(J7620) NEB ×4 (07:37→20:07)
[2017-06-13] MEDS: ASPIRIN 81 MG ENTERIC TAB PO (09:27)
[2017-06-13] MEDS: CALCIUM ACETATE 667 MG GELCAP PO ×3 (09:27→17:47)
[2017-06-13] MEDS: METOPROLOL TART 25 MG TABLET PO ×2 (09:28→21:13)
[2017-06-13] MEDS: **VANCO AFTER HD** MISC XX (16:04)
[2017-06-13] MEDS: BENZONATATE 100 MG CAP PO (17:47)
[2017-06-13] MEDS: NAFCILLIN SOD 2 GM in D5W MINI-BAG PLUS 50 ML IV (19:52)
[2017-06-13] MEDS: ATORVASTATIN 20 MG TAB PO (21:13)
[2017-06-14] MEDS: NAFCILLIN SOD 2 GM in D5W MINI-BAG PLUS 50 ML IV ×4 (02:06→19:41)
[2017-06-14] MEDS: ACETAMINOPHEN TAB 650MG DOSE (2X325MG) PO ×4 (03:02→17:40)
[2017-06-14] MEDS: HEPARIN SOD (PORCINE) 5000 UNITS/ML VIAL SC ×3 (05:11→21:09)
[2017-06-14] MEDS: BENZONATATE 100 MG CAP PO (05:14)
[2017-06-14 05:53] LABS: HEMATOCRIT 29.5 % (42.0-52.0); HEMOGLOBIN 9.6 g/dl (13.5-17.5); MEAN CORPUSCULAR HGB CONC 32.5 g/dl (32.0-36.5); MEAN CORPUSCULAR VOLUME 95.2 fl (80.0-96.0); PLATELET COUNT, AUTOMATED 169 10^3/uL (150-450); RED CELL DISTRIBUTION WIDTH 15.2 % (11.5-14.5)
[2017-06-14 06:12] LABS: ANION GAP 8 MEQ/L (8-16); BLOOD UREA NITROGEN 38 MG/DL (7-18); CALCIUM LEVEL 8.7 MG/DL (8.5-10.1); CARBON DIOXIDE LEVEL 28 MEQ/L (21-32); CHLORIDE LEVEL 96 MEQ/L (98-107); CREATININE FOR GFR 5.09 MG/DL (0.70-1.30); GLOMERULAR FILTRATION RATE 12.5 (>56); GLUCOSE, FASTING 93 MG/DL (70-100); POTASSIUM SERUM 3.9 MEQ/L (3.5-5.1); SODIUM LEVEL 132 MEQ/L (136-145)
[2017-06-14] MEDS: IPRATROPIUM 0.5MG/ALBUTEROL 2.5MG INH SOL UD 3ML (DUONEB)(J7620) NEB ×4 (07:30→20:18)
[2017-06-14] MEDS: METOPROLOL TART 25 MG TABLET PO ×2 (08:52→21:08)
[2017-06-14] MEDS: CALCIUM ACETATE 667 MG GELCAP PO ×3 (08:52→17:39)
[2017-06-14] MEDS: ASPIRIN 81 MG ENTERIC TAB PO (08:52)
[2017-06-14] MEDS: ATORVASTATIN 20 MG TAB PO (21:08)
[2017-06-14] MEDS: CALCIUM CARBONATE 500 MG CHEW U/D PO (22:45)
[2017-06-15] MEDS: NAFCILLIN SOD 2 GM in D5W MINI-BAG PLUS 50 ML IV ×3 (02:12→14:06)
[2017-06-15] MEDS: ASPIRIN 81 MG ENTERIC TAB PO (06:22)
[2017-06-15] MEDS: METOPROLOL TART 25 MG TABLET PO ×2 (06:23→20:49)
[2017-06-15] MEDS: CALCIUM CARBONATE 500 MG CHEW U/D PO (06:25)
[2017-06-15] MEDS: IPRATROPIUM 0.5MG/ALBUTEROL 2.5MG INH SOL UD 3ML (DUONEB)(J7620) NEB ×4 (07:17→20:32)
[2017-06-15] MEDS: CALCIUM ACETATE 667 MG GELCAP PO ×3 (08:17→16:56)
[2017-06-15] MEDS: EMLA CREAM 5GM (LIDOCAINE/PRILOCAINE) EXT (08:17)
[2017-06-15 09:26] LABS: HEMATOCRIT 31.1 % (42.0-52.0); HEMOGLOBIN 10.4 g/dl (13.5-17.5); MEAN CORPUSCULAR HEMOGLOBIN 30.7 pg (27.0-33.0); MEAN CORPUSCULAR HGB CONC 33.4 g/dl (32.0-36.5); MEAN CORPUSCULAR VOLUME 91.7 fl (80.0-96.0); PLATELET COUNT, AUTOMATED 201 10^3/uL (150-450); RED BLOOD COUNT 3.39 10^6/uL (4.30-6.10); RED CELL DISTRIBUTION WIDTH 15.1 % (11.5-14.5); WHITE BLOOD COUNT 8.2 10^3/uL (4.0-10.0)
[2017-06-15 09:48] LABS: ANION GAP 9 MEQ/L (8-16); BLOOD UREA NITROGEN 52 MG/DL (7-18); CALCIUM LEVEL 8.4 MG/DL (8.5-10.1); CARBON DIOXIDE LEVEL 28 MEQ/L (21-32); CHLORIDE LEVEL 93 MEQ/L (98-107); CREATININE FOR GFR 5.96 MG/DL (0.70-1.30); GLOMERULAR FILTRATION RATE 10.4 (>56); GLUCOSE, FASTING 117 MG/DL (70-100); POTASSIUM SERUM 4.2 MEQ/L (3.5-5.1); SODIUM LEVEL 130 MEQ/L (136-145)
[2017-06-15] MEDS: HEPARIN 1,000 UNITS/ML 10ML VIAL (FOR RADIOLOGY& DIALYSIS ONLY) IV (12:15)
[2017-06-15] MEDS: BUPIVACAINE HCL 0.5% 30 ML VIAL As Ordered (14:13)
[2017-06-15] MEDS ORDERED: PROPOFOL 200 MG/20 ML VIAL As Ordered (17:30)
[2017-06-15] MEDS ORDERED: fentaNYL 100 MCG/2 ML INJECTION (J3010) As Ordered (17:30)
[2017-06-15] MEDS ORDERED: LIDOCAINE 2% INJ 100 MG/5 ML SDV (FOR ANES.) As Ordered (17:30)
[2017-06-15] MEDS ORDERED: MIDAZOLAM INJ 2 MG/2 ML VIAL (J2250) As Ordered (17:31)
[2017-06-15] MEDS: LIDOCAINE 2% MDV 20 ML VIAL As Ordered (18:01)
[2017-06-15] MEDS: ROPIvacaine 0.5% 30 ML INJECTION (J2795 PER 1MG) As Ordered (18:01)
[2017-06-15] MEDS: GENTAMICIN SULF INJ 80MG/2ML VIAL (J1580) As Ordered (18:21)
[2017-06-15 18:59] LABS: BEDSIDE GLUCOSE 94 MG/DL (70-105)
[2017-06-15] MEDS ORDERED: fentaNYL 100 MCG/2 ML INJECTION (J3010) IV (19:15)
[2017-06-15] MEDS ORDERED: ONDANSETRON 4MG/2ML VIAL (J2405) IV (19:15)
[2017-06-15] MEDS: ATORVASTATIN 20 MG TAB PO (20:48)
[2017-06-15] MEDS ORDERED: CEFAZOLIN SOD 2 GM in APPROPRIATE DILUENT 1 EA IV (21:00)
[2017-06-15] MEDS: ACETAMINOPHEN TAB 650MG DOSE (2X325MG) PO (23:14)
[2017-06-16] MEDS: ACETAMINOPHEN TAB 650MG DOSE (2X325MG) PO ×4 (03:50→21:55)
[2017-06-16 05:55] LABS: HEMATOCRIT 28.8 % (42.0-52.0); HEMOGLOBIN 9.5 g/dl (13.5-17.5); MEAN CORPUSCULAR HEMOGLOBIN 30.4 pg (27.0-33.0); MEAN CORPUSCULAR VOLUME 92.3 fl (80.0-96.0); PLATELET COUNT, AUTOMATED 210 10^3/uL (150-450); RED BLOOD COUNT 3.12 10^6/uL (4.30-6.10); RED CELL DISTRIBUTION WIDTH 15.1 % (11.5-14.5); WHITE BLOOD COUNT 8.5 10^3/uL (4.0-10.0)
[2017-06-16] MEDS: HEPARIN SOD (PORCINE) 5000 UNITS/ML VIAL SC ×3 (05:56→21:53)
[2017-06-16 06:09] LABS: ANION GAP 6 MEQ/L (8-16); BLOOD UREA NITROGEN 26 MG/DL (7-18); CALCIUM LEVEL 8.1 MG/DL (8.5-10.1); CARBON DIOXIDE LEVEL 28 MEQ/L (21-32); CHLORIDE LEVEL 98 MEQ/L (98-107); CREATININE FOR GFR 3.95 MG/DL (0.70-1.30); GLOMERULAR FILTRATION RATE 16.7 (>56); GLUCOSE, FASTING 95 MG/DL (70-100); POTASSIUM SERUM 4.1 MEQ/L (3.5-5.1); SODIUM LEVEL 132 MEQ/L (136-145)
[2017-06-16] MEDS: IPRATROPIUM 0.5MG/ALBUTEROL 2.5MG INH SOL UD 3ML (DUONEB)(J7620) NEB ×4 (07:56→21:22)
[2017-06-16] MEDS: CLOPIDOGREL 75 MG TAB PO (08:54)
[2017-06-16] MEDS: CALCIUM ACETATE 667 MG GELCAP PO ×3 (08:54→17:34)
[2017-06-16] MEDS: ASPIRIN 81 MG ENTERIC TAB PO (08:54)
[2017-06-16] MEDS: METOPROLOL TART 25 MG TABLET PO ×2 (08:57→21:54)
[2017-06-16 11:19] LABS: ESTIMATED AVERAGE GLUCOSE 137 MG/DL (60-110); HEMOGLOBIN A1c 6.4 %
[2017-06-16] MEDS: CALCIUM CARBONATE 500 MG CHEW U/D PO (13:44)
[2017-06-16] MEDS: BENZONATATE 100 MG CAP PO (14:26)
[2017-06-16] MEDS: ATORVASTATIN 20 MG TAB PO (21:53)
[2017-06-17] MEDS: IPRATROPIUM 0.5MG/ALBUTEROL 2.5MG INH SOL UD 3ML (DUONEB)(J7620) NEB ×5 (00:57→19:41)
[2017-06-17] MEDS: BENZONATATE 100 MG CAP PO (02:00)
[2017-06-17] MEDS: ACETAMINOPHEN TAB 650MG DOSE (2X325MG) PO ×2 (02:01→10:46)
[2017-06-17] MEDS: CALCIUM CARBONATE 500 MG CHEW U/D PO (02:37)
[2017-06-17] MEDS: HEPARIN SOD (PORCINE) 5000 UNITS/ML VIAL SC ×3 (06:00→21:32)
[2017-06-17 06:02] LABS: HEMATOCRIT 27.6 % (42.0-52.0); HEMOGLOBIN 8.9 g/dl (13.5-17.5); MEAN CORPUSCULAR HEMOGLOBIN 30.5 pg (27.0-33.0); MEAN CORPUSCULAR HGB CONC 32.2 g/dl (32.0-36.5); MEAN CORPUSCULAR VOLUME 94.5 fl (80.0-96.0); PLATELET COUNT, AUTOMATED 216 10^3/uL (150-450); RED BLOOD COUNT 2.92 10^6/uL (4.30-6.10); RED CELL DISTRIBUTION WIDTH 15.4 % (11.5-14.5); WHITE BLOOD COUNT 7.6 10^3/uL (4.0-10.0)
[2017-06-17 06:18] LABS: ANION GAP 6 MEQ/L (8-16); BLOOD UREA NITROGEN 31 MG/DL (7-18); CALCIUM LEVEL 8.7 MG/DL (8.5-10.1); CARBON DIOXIDE LEVEL 29 MEQ/L (21-32); CHLORIDE LEVEL 97 MEQ/L (98-107); CREATININE FOR GFR 4.84 MG/DL (0.70-1.30); GLOMERULAR FILTRATION RATE 13.2 (>56); GLUCOSE, FASTING 140 MG/DL (70-100); POTASSIUM SERUM 4.2 MEQ/L (3.5-5.1); SODIUM LEVEL 132 MEQ/L (136-145)
[2017-06-17] MEDS: ASPIRIN 81 MG ENTERIC TAB PO (07:01)
[2017-06-17] MEDS: CALCIUM ACETATE 667 MG GELCAP PO ×3 (07:01→17:42)
[2017-06-17] MEDS: CLOPIDOGREL 75 MG TAB PO (07:01)
[2017-06-17] MEDS: METOPROLOL TART 25 MG TABLET PO ×2 (07:02→21:33)
[2017-06-17] MEDS: EMLA CREAM 5GM (LIDOCAINE/PRILOCAINE) EXT (07:42)
[2017-06-17] MEDS ORDERED: DARBEPOETIN 100 MCG/0.5 ML *DIALYSIS* SYRINGE (J0882) IV (12:00)
[2017-06-17] MEDS: HEPARIN 1,000 UNITS/ML 10ML VIAL (FOR RADIOLOGY& DIALYSIS ONLY) IV (12:25)
[2017-06-17] MEDS: NORCO, ANEXSIA 5/325MG TABLET (HYDROcodone/ACETAMINOPHEN) PO ×2 (18:19→22:35)
[2017-06-17] MEDS: ATORVASTATIN 20 MG TAB PO (21:32)
[2017-06-18] MEDS: CALCIUM CARBONATE 500 MG CHEW U/D PO ×2 (02:05→20:19)
[2017-06-18] MEDS: HEPARIN SOD (PORCINE) 5000 UNITS/ML VIAL SC ×4 (05:17→22:00)
[2017-06-18] MEDS: NORCO, ANEXSIA 5/325MG TABLET (HYDROcodone/ACETAMINOPHEN) PO ×3 (05:19→20:15)
[2017-06-18] MEDS: IPRATROPIUM 0.5MG/ALBUTEROL 2.5MG INH SOL UD 3ML (DUONEB)(J7620) NEB ×4 (07:45→20:55)
[2017-06-18 08:22] LABS: HEMATOCRIT 27.7 % (42.0-52.0); HEMOGLOBIN 8.8 g/dl (13.5-17.5); MEAN CORPUSCULAR HEMOGLOBIN 30.2 pg (27.0-33.0); MEAN CORPUSCULAR HGB CONC 31.8 g/dl (32.0-36.5); MEAN CORPUSCULAR VOLUME 95.2 fl (80.0-96.0); PLATELET COUNT, AUTOMATED 205 10^3/uL (150-450); RED BLOOD COUNT 2.91 10^6/uL (4.30-6.10); RED CELL DISTRIBUTION WIDTH 15.7 % (11.5-14.5); WHITE BLOOD COUNT 6.9 10^3/uL (4.0-10.0)
[2017-06-18 08:53] LABS: ANION GAP 8 MEQ/L (8-16); BLOOD UREA NITROGEN 21 MG/DL (7-18); CALCIUM LEVEL 8.9 MG/DL (8.5-10.1); CARBON DIOXIDE LEVEL 22 MEQ/L (21-32); CHLORIDE LEVEL 101 MEQ/L (98-107); CREATININE FOR GFR 3.44 MG/DL (0.70-1.30); GLOMERULAR FILTRATION RATE 19.6 (>56); GLUCOSE, FASTING 91 MG/DL (70-100); SODIUM LEVEL 131 MEQ/L (136-145)
[2017-06-18 08:54] LABS: POTASSIUM SERUM 5.2 MEQ/L (3.5-5.1)
[2017-06-18] MEDS: CLOPIDOGREL 75 MG TAB PO (09:26)
[2017-06-18] MEDS: METOPROLOL TART 25 MG TABLET PO ×2 (09:26→20:13)
[2017-06-18] MEDS: CALCIUM ACETATE 667 MG GELCAP PO ×3 (09:26→18:02)
[2017-06-18] MEDS: ASPIRIN 81 MG ENTERIC TAB PO (09:26)
[2017-06-18] MEDS ORDERED: VANCOMYCIN HCL 1,000 MG, VIAL MATE ADAPTER 1 EACH in D5W 250 ML IV (16:45)
[2017-06-18] MEDS: VANCOMYCIN HCL 1,000 MG, VIAL MATE ADAPTER 1 EACH in D5W 250 ML IV (18:01)
[2017-06-18] MEDS: LevoFLOXacin 500 MG TABLET PO (18:02)
[2017-06-18] MEDS: ATORVASTATIN 20 MG TAB PO (20:12)
[2017-06-19] MEDS: HEPARIN SOD (PORCINE) 5000 UNITS/ML VIAL SC ×4 (06:00→22:00)
[2017-06-19 06:30] LABS: HEMATOCRIT 27.6 % (42.0-52.0); HEMOGLOBIN 8.9 g/dl (13.5-17.5); MEAN CORPUSCULAR HEMOGLOBIN 31.1 pg (27.0-33.0); MEAN CORPUSCULAR HGB CONC 32.2 g/dl (32.0-36.5); MEAN CORPUSCULAR VOLUME 96.5 fl (80.0-96.0); PLATELET COUNT, AUTOMATED 215 10^3/uL (150-450); RED BLOOD COUNT 2.86 10^6/uL (4.30-6.10); RED CELL DISTRIBUTION WIDTH 15.9 % (11.5-14.5); WHITE BLOOD COUNT 7.1 10^3/uL (4.0-10.0)
[2017-06-19] MEDS: ASPIRIN 81 MG ENTERIC TAB PO (06:41)
[2017-06-19] MEDS: CLOPIDOGREL 75 MG TAB PO (06:41)
[2017-06-19] MEDS: CALCIUM ACETATE 667 MG GELCAP PO ×4 (06:41→18:19)
[2017-06-19] MEDS: METOPROLOL TART 25 MG TABLET PO ×2 (06:42→20:44)
[2017-06-19] MEDS: LevoFLOXacin 250 MG TABLET PO (06:42)
[2017-06-19 06:45] LABS: ANION GAP 7 MEQ/L (8-16); BLOOD UREA NITROGEN 25 MG/DL (7-18); CALCIUM LEVEL 9.6 MG/DL (8.5-10.1); CARBON DIOXIDE LEVEL 28 MEQ/L (21-32); CHLORIDE LEVEL 100 MEQ/L (98-107); CREATININE FOR GFR 4.35 MG/DL (0.70-1.30); GLUCOSE, FASTING 90 MG/DL (70-100); POTASSIUM SERUM 4.9 MEQ/L (3.5-5.1); SODIUM LEVEL 135 MEQ/L (136-145)
[2017-06-19] MEDS: EMLA CREAM 5GM (LIDOCAINE/PRILOCAINE) EXT (07:56)
[2017-06-19] MEDS: IPRATROPIUM 0.5MG/ALBUTEROL 2.5MG INH SOL UD 3ML (DUONEB)(J7620) NEB ×6 (08:00→20:00)
[2017-06-19] MEDS: HEPARIN 1,000 UNITS/ML 10ML VIAL (FOR RADIOLOGY& DIALYSIS ONLY) IV (09:30)
[2017-06-19] MEDS ORDERED: ONDANSETRON 4MG/2ML VIAL (J2405) As Ordered (14:32)
[2017-06-19] MEDS ORDERED: MIDAZOLAM INJ 2 MG/2 ML VIAL (J2250) As Ordered (14:32)
[2017-06-19] MEDS ORDERED: LIDOCAINE 2% INJ 100 MG/5 ML SDV (FOR ANES.) As Ordered (14:32)
[2017-06-19] MEDS ORDERED: PROPOFOL 200 MG/20 ML VIAL As Ordered (14:32)
[2017-06-19] MEDS ORDERED: fentaNYL 100 MCG/2 ML INJECTION (J3010) As Ordered (14:33)
[2017-06-19] MEDS: **VANCO AFTER HD** MISC XX (16:00)
[2017-06-19] MEDS: LIDOCAINE 2% MDV 20 ML VIAL As Ordered (16:05)
[2017-06-19] MEDS: ROPIvacaine 0.5% 30 ML INJECTION (J2795 PER 1MG) As Ordered (16:05)
[2017-06-19] MEDS: TOBRAMYCIN SULF 1.2 GM VIAL As Ordered (16:32)
[2017-06-19] MEDS ORDERED: PERCOCET 5MG/325MG TAB PO (17:15)
[2017-06-19] MEDS: LR 1,000 ML IV (17:15)
[2017-06-19] MEDS: VANCOMYCIN HCL 1,000 MG, VIAL MATE ADAPTER 1 EACH in D5W 250 ML IV (18:19)
[2017-06-19] MEDS: NORCO, ANEXSIA 5/325MG TABLET (HYDROcodone/ACETAMINOPHEN) PO (20:43)
[2017-06-19] MEDS: ATORVASTATIN 20 MG TAB PO (20:43)
[2017-06-20] MEDS: NORCO, ANEXSIA 5/325MG TABLET (HYDROcodone/ACETAMINOPHEN) PO ×5 (01:51→22:35)
[2017-06-20] MEDS: LevoFLOXacin 250 MG TABLET PO (05:35)
[2017-06-20] MEDS: ACETAMINOPHEN TAB 650MG DOSE (2X325MG) PO (05:36)
[2017-06-20] MEDS: HEPARIN SOD (PORCINE) 5000 UNITS/ML VIAL SC ×3 (05:36→22:35)
[2017-06-20 06:02] LABS: HEMATOCRIT 25.8 % (42.0-52.0); HEMOGLOBIN 8.2 g/dl (13.5-17.5); MEAN CORPUSCULAR HEMOGLOBIN 30.8 pg (27.0-33.0); MEAN CORPUSCULAR HGB CONC 31.8 g/dl (32.0-36.5); PLATELET COUNT, AUTOMATED 213 10^3/uL (150-450); RED BLOOD COUNT 2.66 10^6/uL (4.30-6.10); RED CELL DISTRIBUTION WIDTH 16.1 % (11.5-14.5)
[2017-06-20 06:18] LABS: ANION GAP 7 MEQ/L (8-16); BLOOD UREA NITROGEN 13 MG/DL (7-18); CALCIUM LEVEL 8.6 MG/DL (8.5-10.1); CARBON DIOXIDE LEVEL 29 MEQ/L (21-32); CHLORIDE LEVEL 100 MEQ/L (98-107); GLOMERULAR FILTRATION RATE 20.6 (>56); GLUCOSE, FASTING 89 MG/DL (70-100); POTASSIUM SERUM 4.2 MEQ/L (3.5-5.1); SODIUM LEVEL 136 MEQ/L (136-145)
[2017-06-20] MEDS: IPRATROPIUM 0.5MG/ALBUTEROL 2.5MG INH SOL UD 3ML (DUONEB)(J7620) NEB ×4 (07:58→20:00)
[2017-06-20] MEDS: ASPIRIN 81 MG ENTERIC TAB PO (08:18)
[2017-06-20] MEDS: CLOPIDOGREL 75 MG TAB PO (08:18)
[2017-06-20] MEDS: METOPROLOL TART 25 MG TABLET PO ×2 (08:19→22:34)
[2017-06-20] MEDS: CALCIUM ACETATE 667 MG GELCAP PO ×3 (08:19→17:05)
[2017-06-20 09:16] LABS: FERRITIN 2305 NG/ML (26-388); IRON (FE) 63 UG/DL (65-175); PERCENT SATURATION 42.3 % (19.7-50.0); TOTAL IRON BINDING CAPACITY 149 UG/DL (250-450)
[2017-06-20 11:08] LABS: VANCOMYCIN RANDOM 27.7 UG/ML
[2017-06-20 11:13] LABS: IMMEDIATE SPIN CROSSMATCH 1 1
[2017-06-20] MEDS: **VANCO AFTER HD** MISC XX (14:24)
[2017-06-20] MEDS: ATORVASTATIN 20 MG TAB PO (22:33)
[2017-06-21] MEDS: NORCO, ANEXSIA 5/325MG TABLET (HYDROcodone/ACETAMINOPHEN) PO ×4 (02:58→16:56)
[2017-06-21] MEDS: HEPARIN SOD (PORCINE) 5000 UNITS/ML VIAL SC ×3 (05:22→20:14)
[2017-06-21] MEDS: LevoFLOXacin 250 MG TABLET PO (05:22)
[2017-06-21] MEDS: CALCIUM ACETATE 667 MG GELCAP PO ×3 (07:21→17:00)
[2017-06-21] MEDS: CALCIUM CARBONATE 500 MG CHEW U/D PO ×2 (07:57→19:03)
[2017-06-21] MEDS: METOPROLOL TART 25 MG TABLET PO ×2 (07:58→20:14)
[2017-06-21] MEDS: ASPIRIN 81 MG ENTERIC TAB PO (07:58)
[2017-06-21] MEDS: CLOPIDOGREL 75 MG TAB PO (07:58)
[2017-06-21] MEDS: IPRATROPIUM 0.5MG/ALBUTEROL 2.5MG INH SOL UD 3ML (DUONEB)(J7620) NEB ×4 (08:05→20:00)
[2017-06-21 08:37] LABS: HEMATOCRIT 29.3 % (42.0-52.0); HEMOGLOBIN 9.5 g/dl (13.5-17.5); MEAN CORPUSCULAR HGB CONC 32.4 g/dl (32.0-36.5); MEAN CORPUSCULAR VOLUME 98.7 fl (80.0-96.0); PLATELET COUNT, AUTOMATED 206 10^3/uL (150-450); RED BLOOD COUNT 2.97 10^6/uL (4.30-6.10); RED CELL DISTRIBUTION WIDTH 16.4 % (11.5-14.5); WHITE BLOOD COUNT 7.4 10^3/uL (4.0-10.0)
[2017-06-21 09:06] LABS: ALBUMIN 2.4 GM/DL (3.2-5.2); ANION GAP 7 MEQ/L (8-16); BLOOD UREA NITROGEN 19 MG/DL (7-18); CALCIUM LEVEL 8.9 MG/DL (8.5-10.1); CARBON DIOXIDE LEVEL 31 MEQ/L (21-32); CHLORIDE LEVEL 97 MEQ/L (98-107); CREATININE FOR GFR 4.35 MG/DL (0.70-1.30); GLUCOSE, FASTING 88 MG/DL (70-100); PHOSPHORUS LEVEL 2.4 MG/DL (2.5-4.9); POTASSIUM SERUM 4.1 MEQ/L (3.5-5.1); SODIUM LEVEL 135 MEQ/L (136-145)
[2017-06-21] MEDS: **VANCO AFTER HD** MISC XX (15:22)
[2017-06-21] MEDS: ATORVASTATIN 20 MG TAB PO (20:13)
[2017-06-22] MEDS ORDERED: NS 1,000 ML IV (04:11)
[2017-06-22] MEDS: LevoFLOXacin 250 MG TABLET PO (05:49)
[2017-06-22] MEDS: CALCIUM CARBONATE 500 MG CHEW U/D PO ×2 (05:49→20:14)
[2017-06-22] MEDS: METOPROLOL TART 25 MG TABLET PO ×2 (05:50→20:14)
[2017-06-22] MEDS: HEPARIN SOD (PORCINE) 5000 UNITS/ML VIAL SC ×3 (05:50→20:15)
[2017-06-22 06:27] LABS: HEMATOCRIT 30.6 % (42.0-52.0); HEMOGLOBIN 9.8 g/dl (13.5-17.5); MEAN CORPUSCULAR HEMOGLOBIN 31.3 pg (27.0-33.0); MEAN CORPUSCULAR VOLUME 97.8 fl (80.0-96.0); PLATELET COUNT, AUTOMATED 216 10^3/uL (150-450); RED BLOOD COUNT 3.13 10^6/uL (4.30-6.10); RED CELL DISTRIBUTION WIDTH 16.8 % (11.5-14.5); WHITE BLOOD COUNT 7.9 10^3/uL (4.0-10.0)
[2017-06-22 07:03] LABS: ALBUMIN 2.3 GM/DL (3.2-5.2); ANION GAP 6 MEQ/L (8-16); BLOOD UREA NITROGEN 22 MG/DL (7-18); C REACTIVE PROTEIN QUANTITATIV 9.99 MG/DL (0.00-0.30); CALCIUM LEVEL 9.7 MG/DL (8.5-10.1); CARBON DIOXIDE LEVEL 30 MEQ/L (21-32); CHLORIDE LEVEL 97 MEQ/L (98-107); CREATININE FOR GFR 5.07 MG/DL (0.70-1.30); GLOMERULAR FILTRATION RATE 12.6 (>56); GLUCOSE, FASTING 69 MG/DL (70-100); PHOSPHORUS LEVEL 3.1 MG/DL (2.5-4.9); POTASSIUM SERUM 4.8 MEQ/L (3.5-5.1); SODIUM LEVEL 133 MEQ/L (136-145)
[2017-06-22] MEDS: IPRATROPIUM 0.5MG/ALBUTEROL 2.5MG INH SOL UD 3ML (DUONEB)(J7620) NEB ×4 (07:14→20:48)
[2017-06-22] MEDS: EMLA CREAM 5GM (LIDOCAINE/PRILOCAINE) EXT (07:57)
[2017-06-22] MEDS: NORCO, ANEXSIA 5/325MG TABLET (HYDROcodone/ACETAMINOPHEN) PO ×3 (07:57→20:14)
[2017-06-22] MEDS: CALCIUM ACETATE 667 MG GELCAP PO ×3 (07:57→19:04)
[2017-06-22] MEDS: HEPARIN 1,000 UNITS/ML 10ML VIAL (FOR RADIOLOGY& DIALYSIS ONLY) IV (12:22)
[2017-06-22] MEDS: ASPIRIN 81 MG ENTERIC TAB PO (12:41)
[2017-06-22] MEDS: CLOPIDOGREL 75 MG TAB PO (12:41)
[2017-06-22] MEDS ORDERED: ISOVUE-300 61% 50ML VIAL (Q9967) As Ordered (15:34)
[2017-06-22] MEDS: **VANCO AFTER HD** MISC XX (16:00)
[2017-06-22] MEDS ORDERED: MIDAZOLAM INJ 2 MG/2 ML VIAL (J2250) As Ordered (16:20)
[2017-06-22] MEDS ORDERED: fentaNYL 100 MCG/2 ML INJECTION (J3010) As Ordered (16:20)
[2017-06-22] MEDS ORDERED: LIDOCAINE 2% MDV 20 ML VIAL As Ordered (16:35)
[2017-06-22] MEDS: VANCOMYCIN HCL 1,000 MG, VIAL MATE ADAPTER 1 EACH in D5W 250 ML IV (19:04)
[2017-06-22] MEDS: ATORVASTATIN 20 MG TAB PO (20:13)
[2017-06-23] MEDS: HEPARIN SOD (PORCINE) 5000 UNITS/ML VIAL SC ×3 (06:00→21:25)
[2017-06-23] MEDS: LevoFLOXacin 250 MG TABLET PO (06:03)
[2017-06-23 06:44] LABS: HEMATOCRIT 30.5 % (42.0-52.0); HEMOGLOBIN 9.5 g/dl (13.5-17.5); MEAN CORPUSCULAR HEMOGLOBIN 30.5 pg (27.0-33.0); MEAN CORPUSCULAR HGB CONC 31.1 g/dl (32.0-36.5); MEAN CORPUSCULAR VOLUME 98.1 fl (80.0-96.0); PLATELET COUNT, AUTOMATED 181 10^3/uL (150-450); RED BLOOD COUNT 3.11 10^6/uL (4.30-6.10); RED CELL DISTRIBUTION WIDTH 17.3 % (11.5-14.5); WHITE BLOOD COUNT 6.3 10^3/uL (4.0-10.0)
[2017-06-23 07:10] LABS: ALBUMIN 2.3 GM/DL (3.2-5.2); ANION GAP 7 MEQ/L (8-16); BLOOD UREA NITROGEN 14 MG/DL (7-18); CALCIUM LEVEL 9.3 MG/DL (8.5-10.1); CARBON DIOXIDE LEVEL 29 MEQ/L (21-32); CHLORIDE LEVEL 99 MEQ/L (98-107); CREATININE FOR GFR 3.72 MG/DL (0.70-1.30); GLOMERULAR FILTRATION RATE 17.9 (>56); GLUCOSE, FASTING 74 MG/DL (70-100); MAGNESIUM LEVEL 1.9 MG/DL (1.8-2.4); PHOSPHORUS LEVEL 2.7 MG/DL (2.5-4.9); POTASSIUM SERUM 4.5 MEQ/L (3.5-5.1); SODIUM LEVEL 135 MEQ/L (136-145)
[2017-06-23] MEDS: IPRATROPIUM 0.5MG/ALBUTEROL 2.5MG INH SOL UD 3ML (DUONEB)(J7620) NEB ×4 (07:19→22:01)
[2017-06-23] MEDS: ACETAMINOPHEN TAB 650MG DOSE (2X325MG) PO (08:26)
[2017-06-23] MEDS: ASPIRIN 81 MG ENTERIC TAB PO (08:26)
[2017-06-23] MEDS: CALCIUM ACETATE 667 MG GELCAP PO ×3 (08:26→18:24)
[2017-06-23] MEDS: CLOPIDOGREL 75 MG TAB PO (08:26)
[2017-06-23] MEDS: METOPROLOL TART 25 MG TABLET PO ×2 (08:28→20:00)
[2017-06-23] MEDS: **VANCO AFTER HD** MISC XX (15:39)
[2017-06-23] MEDS: NORCO, ANEXSIA 5/325MG TABLET (HYDROcodone/ACETAMINOPHEN) PO (19:59)
[2017-06-23] MEDS: CALCIUM CARBONATE 500 MG CHEW U/D PO (19:59)
[2017-06-23] MEDS: ATORVASTATIN 20 MG TAB PO (19:59)
[2017-06-23] MEDS: diphenhydrAMINE 25 MG CAP PO (20:00)
[2017-06-24] MEDS: HEPARIN SOD (PORCINE) 5000 UNITS/ML VIAL SC ×3 (05:24→21:34)
[2017-06-24] MEDS: CLOPIDOGREL 75 MG TAB PO (06:34)
[2017-06-24] MEDS: NORCO, ANEXSIA 5/325MG TABLET (HYDROcodone/ACETAMINOPHEN) PO ×3 (06:35→21:43)
[2017-06-24] MEDS: ASPIRIN 81 MG ENTERIC TAB PO (06:35)
[2017-06-24] MEDS: METOPROLOL TART 25 MG TABLET PO ×2 (06:35→21:40)
[2017-06-24] MEDS: LevoFLOXacin 250 MG TABLET PO (06:35)
[2017-06-24 07:08] LABS: HEMATOCRIT 28.4 % (42.0-52.0); HEMOGLOBIN 8.9 g/dl (13.5-17.5); MEAN CORPUSCULAR HEMOGLOBIN 31.2 pg (27.0-33.0); MEAN CORPUSCULAR HGB CONC 31.3 g/dl (32.0-36.5); MEAN CORPUSCULAR VOLUME 99.6 fl (80.0-96.0); PLATELET COUNT, AUTOMATED 157 10^3/uL (150-450); RED BLOOD COUNT 2.85 10^6/uL (4.30-6.10); RED CELL DISTRIBUTION WIDTH 17.5 % (11.5-14.5); WHITE BLOOD COUNT 5.8 10^3/uL (4.0-10.0)
[2017-06-24] MEDS: IPRATROPIUM 0.5MG/ALBUTEROL 2.5MG INH SOL UD 3ML (DUONEB)(J7620) NEB ×4 (07:26→20:00)
[2017-06-24 07:31] LABS: ALBUMIN 2.3 GM/DL (3.2-5.2); ANION GAP 6 MEQ/L (8-16); BLOOD UREA NITROGEN 18 MG/DL (7-18); CALCIUM LEVEL 9.3 MG/DL (8.5-10.1); CARBON DIOXIDE LEVEL 29 MEQ/L (21-32); CHLORIDE LEVEL 99 MEQ/L (98-107); CREATININE FOR GFR 4.62 MG/DL (0.70-1.30); GLUCOSE, FASTING 82 MG/DL (70-100); MAGNESIUM LEVEL 1.9 MG/DL (1.8-2.4); PHOSPHORUS LEVEL 2.6 MG/DL (2.5-4.9); SODIUM LEVEL 134 MEQ/L (136-145)
[2017-06-24 07:39] LABS: ESTIMATED AVERAGE GLUCOSE 111 MG/DL (60-110); HEMOGLOBIN A1c 5.5 %
[2017-06-24] MEDS: CALCIUM ACETATE 667 MG GELCAP PO ×3 (07:43→18:00)
[2017-06-24] MEDS: EMLA CREAM 5GM (LIDOCAINE/PRILOCAINE) EXT (07:44)
[2017-06-24 09:50] LABS: VANCOMYCIN RANDOM 27.8 UG/ML
[2017-06-24] MEDS: HEPARIN 1,000 UNITS/ML 10ML VIAL (FOR RADIOLOGY& DIALYSIS ONLY) IV (13:20)
[2017-06-24] MEDS: EUCERIN 120GM CREAM TOP ×2 (14:13→21:40)
[2017-06-24] MEDS: diphenhydrAMINE 25 MG CAP PO ×2 (14:14→21:39)
[2017-06-24] MEDS: CALCIUM CARBONATE 500 MG CHEW U/D PO ×2 (14:14→21:43)
[2017-06-24] MEDS: VANCOMYCIN HCL 1,000 MG, VIAL MATE ADAPTER 1 EACH in D5W 250 ML IV (16:42)
[2017-06-24] MEDS: **VANCO AFTER HD** MISC XX (16:43)
[2017-06-24] MEDS: ATORVASTATIN 20 MG TAB PO (21:39)
[2017-06-25] MEDS: CALCIUM CARBONATE 500 MG CHEW U/D PO ×3 (05:08→20:59)
[2017-06-25] MEDS: HEPARIN SOD (PORCINE) 5000 UNITS/ML VIAL SC ×3 (05:24→21:01)
[2017-06-25] MEDS: LevoFLOXacin 250 MG TABLET PO (06:09)
[2017-06-25 06:46] LABS: HEMATOCRIT 28.2 % (42.0-52.0); HEMOGLOBIN 8.8 g/dl (13.5-17.5); MEAN CORPUSCULAR HGB CONC 31.2 g/dl (32.0-36.5); MEAN CORPUSCULAR VOLUME 99.3 fl (80.0-96.0); PLATELET COUNT, AUTOMATED 156 10^3/uL (150-450); RED BLOOD COUNT 2.84 10^6/uL (4.30-6.10); RED CELL DISTRIBUTION WIDTH 17.8 % (11.5-14.5)
[2017-06-25] MEDS: IPRATROPIUM 0.5MG/ALBUTEROL 2.5MG INH SOL UD 3ML (DUONEB)(J7620) NEB ×4 (07:05→20:00)
[2017-06-25 07:12] LABS: ALBUMIN 2.5 GM/DL (3.2-5.2); ANION GAP 7 MEQ/L (8-16); BLOOD UREA NITROGEN 12 MG/DL (7-18); CALCIUM LEVEL 9.7 MG/DL (8.5-10.1); CARBON DIOXIDE LEVEL 30 MEQ/L (21-32); CHLORIDE LEVEL 98 MEQ/L (98-107); CREATININE FOR GFR 3.58 MG/DL (0.70-1.30); GLOMERULAR FILTRATION RATE 18.8 (>56); GLUCOSE, FASTING 84 MG/DL (70-100); MAGNESIUM LEVEL 1.9 MG/DL (1.8-2.4); PHOSPHORUS LEVEL 1.9 MG/DL (2.5-4.9); POTASSIUM SERUM 4.1 MEQ/L (3.5-5.1); SODIUM LEVEL 135 MEQ/L (136-145)
[2017-06-25] MEDS: CALCIUM ACETATE 667 MG GELCAP PO ×3 (08:05→17:55)
[2017-06-25] MEDS: CLOPIDOGREL 75 MG TAB PO (08:05)
[2017-06-25] MEDS: diphenhydrAMINE 25 MG CAP PO ×2 (08:06→21:01)
[2017-06-25] MEDS: ASPIRIN 81 MG ENTERIC TAB PO (08:06)
[2017-06-25] MEDS: METOPROLOL TART 25 MG TABLET PO ×2 (08:06→20:59)
[2017-06-25] MEDS: NORCO, ANEXSIA 5/325MG TABLET (HYDROcodone/ACETAMINOPHEN) PO ×3 (08:07→21:00)
[2017-06-25] MEDS: EUCERIN 120GM CREAM TOP ×2 (08:08→21:02)
[2017-06-25] MEDS: **VANCO AFTER HD** MISC XX (15:47)
[2017-06-25] MEDS: ATORVASTATIN 20 MG TAB PO (20:58)
[2017-06-26] MEDS: diphenhydrAMINE 25 MG CAP PO ×2 (02:42→20:05)
[2017-06-26] MEDS: CLOPIDOGREL 75 MG TAB PO (05:59)
[2017-06-26] MEDS: LevoFLOXacin 250 MG TABLET PO (06:00)
[2017-06-26] MEDS: METOPROLOL TART 25 MG TABLET PO ×2 (06:00→20:05)
[2017-06-26] MEDS: ASPIRIN 81 MG ENTERIC TAB PO (06:00)
[2017-06-26] MEDS: CALCIUM ACETATE 667 MG GELCAP PO ×3 (06:01→17:49)
[2017-06-26] MEDS: HEPARIN SOD (PORCINE) 5000 UNITS/ML VIAL SC ×3 (06:01→20:43)
[2017-06-26] MEDS: EUCERIN 120GM CREAM TOP ×2 (06:02→20:05)
[2017-06-26] MEDS: EMLA CREAM 5GM (LIDOCAINE/PRILOCAINE) EXT (07:19)
[2017-06-26] MEDS: IPRATROPIUM 0.5MG/ALBUTEROL 2.5MG INH SOL UD 3ML (DUONEB)(J7620) NEB ×4 (07:29→20:13)
[2017-06-26 08:08] LABS: HEMATOCRIT 25.8 % (42.0-52.0); HEMOGLOBIN 8.2 g/dl (13.5-17.5); MEAN CORPUSCULAR HEMOGLOBIN 31.7 pg (27.0-33.0); MEAN CORPUSCULAR HGB CONC 31.8 g/dl (32.0-36.5); MEAN CORPUSCULAR VOLUME 99.6 fl (80.0-96.0); PLATELET COUNT, AUTOMATED 136 10^3/uL (150-450); RED BLOOD COUNT 2.59 10^6/uL (4.30-6.10); RED CELL DISTRIBUTION WIDTH 17.8 % (11.5-14.5); WHITE BLOOD COUNT 5.3 10^3/uL (4.0-10.0)
[2017-06-26 08:36] LABS: ERYTHROCYTE SEDIMENTATION RATE 91 mm/hr (0-20)
[2017-06-26 08:48] LABS: ALBUMIN 2.3 GM/DL (3.2-5.2); ANION GAP 6 MEQ/L (8-16); BLOOD UREA NITROGEN 16 MG/DL (7-18); C REACTIVE PROTEIN QUANTITATIV 7.89 MG/DL (0.00-0.30); CALCIUM LEVEL 9.4 MG/DL (8.5-10.1); CARBON DIOXIDE LEVEL 29 MEQ/L (21-32); CHLORIDE LEVEL 98 MEQ/L (98-107); CREATININE FOR GFR 4.48 MG/DL (0.70-1.30); GLOMERULAR FILTRATION RATE 14.5 (>56); GLUCOSE, FASTING 74 MG/DL (70-100); MAGNESIUM LEVEL 1.8 MG/DL (1.8-2.4); POTASSIUM SERUM 4.4 MEQ/L (3.5-5.1); SODIUM LEVEL 133 MEQ/L (136-145); VANCOMYCIN RANDOM 27.9 UG/ML
[2017-06-26] MEDS: HEPARIN 1,000 UNITS/ML 10ML VIAL (FOR RADIOLOGY& DIALYSIS ONLY) IV (13:11)
[2017-06-26] MEDS: CALCIUM CARBONATE 500 MG CHEW U/D PO (13:14)
[2017-06-26] MEDS: NORCO, ANEXSIA 5/325MG TABLET (HYDROcodone/ACETAMINOPHEN) PO (13:15)
[2017-06-26] MEDS: **VANCO AFTER HD** MISC XX (16:00)
[2017-06-26] MEDS: VANCOMYCIN HCL 750 MG, VIAL MATE ADAPTER 1 EACH in D5W 250 ML IV (16:40)
[2017-06-26] MEDS: ATORVASTATIN 20 MG TAB PO (20:04)
[2017-06-27] MEDS: CALCIUM CARBONATE 500 MG CHEW U/D PO ×3 (04:03→21:04)
[2017-06-27] MEDS: LevoFLOXacin 250 MG TABLET PO (05:28)
[2017-06-27 05:52] LABS: HEMATOCRIT 27.6 % (42.0-52.0); HEMOGLOBIN 8.6 g/dl (13.5-17.5); MEAN CORPUSCULAR HEMOGLOBIN 31.7 pg (27.0-33.0); MEAN CORPUSCULAR HGB CONC 31.2 g/dl (32.0-36.5); MEAN CORPUSCULAR VOLUME 101.8 fl (80.0-96.0); PLATELET COUNT, AUTOMATED 123 10^3/uL (150-450); RED BLOOD COUNT 2.71 10^6/uL (4.30-6.10); RED CELL DISTRIBUTION WIDTH 18.2 % (11.5-14.5)
[2017-06-27] MEDS: HEPARIN SOD (PORCINE) 5000 UNITS/ML VIAL SC ×3 (06:00→21:01)
[2017-06-27 06:19] LABS: ALBUMIN 2.3 GM/DL (3.2-5.2); ANION GAP 5 MEQ/L (8-16); BLOOD UREA NITROGEN 10 MG/DL (7-18); CALCIUM LEVEL 9.5 MG/DL (8.5-10.1); CARBON DIOXIDE LEVEL 31 MEQ/L (21-32); CHLORIDE LEVEL 100 MEQ/L (98-107); CREATININE FOR GFR 3.13 MG/DL (0.70-1.30); GLOMERULAR FILTRATION RATE 21.9 (>56); GLUCOSE, FASTING 77 MG/DL (70-100); MAGNESIUM LEVEL 1.9 MG/DL (1.8-2.4); POTASSIUM SERUM 4.6 MEQ/L (3.5-5.1); SODIUM LEVEL 136 MEQ/L (136-145)
[2017-06-27 06:31] LABS: PHOSPHORUS LEVEL 1.4 MG/DL (2.5-4.9)
[2017-06-27] MEDS: IPRATROPIUM 0.5MG/ALBUTEROL 2.5MG INH SOL UD 3ML (DUONEB)(J7620) NEB ×4 (07:36→19:31)
[2017-06-27] MEDS: CLOPIDOGREL 75 MG TAB PO (07:42)
[2017-06-27] MEDS: METOPROLOL TART 25 MG TABLET PO ×2 (07:42→21:00)
[2017-06-27] MEDS: CALCIUM ACETATE 667 MG GELCAP PO ×3 (07:42→17:56)
[2017-06-27] MEDS: ASPIRIN 81 MG ENTERIC TAB PO (07:42)
[2017-06-27] MEDS: EUCERIN 120GM CREAM TOP ×2 (07:43→21:01)
[2017-06-27] MEDS: **VANCO AFTER HD** MISC XX (15:35)
[2017-06-27] MEDS: NORCO, ANEXSIA 5/325MG TABLET (HYDROcodone/ACETAMINOPHEN) PO (21:00)
[2017-06-27] MEDS: ATORVASTATIN 20 MG TAB PO (21:00)
[2017-06-28] MEDS: CALCIUM CARBONATE 500 MG CHEW U/D PO ×2 (00:52→14:08)
[2017-06-28] MEDS: HEPARIN SOD (PORCINE) 5000 UNITS/ML VIAL SC ×3 (05:03→21:00)
[2017-06-28] MEDS: LevoFLOXacin 250 MG TABLET PO (05:39)
[2017-06-28] MEDS: diphenhydrAMINE 25 MG CAP PO (05:40)
[2017-06-28 06:23] LABS: HEMATOCRIT 26.9 % (42.0-52.0); HEMOGLOBIN 8.4 g/dl (13.5-17.5); MEAN CORPUSCULAR HEMOGLOBIN 31.6 pg (27.0-33.0); MEAN CORPUSCULAR HGB CONC 31.2 g/dl (32.0-36.5); MEAN CORPUSCULAR VOLUME 101.1 fl (80.0-96.0); PLATELET COUNT, AUTOMATED 104 10^3/uL (150-450); RED BLOOD COUNT 2.66 10^6/uL (4.30-6.10); RED CELL DISTRIBUTION WIDTH 18.4 % (11.5-14.5); WHITE BLOOD COUNT 4.3 10^3/uL (4.0-10.0)
[2017-06-28 06:41] LABS: ALBUMIN 2.2 GM/DL (3.2-5.2); ANION GAP 6 MEQ/L (8-16); BLOOD UREA NITROGEN 16 MG/DL (7-18); C REACTIVE PROTEIN QUANTITATIV 6.84 MG/DL (0.00-0.30); CALCIUM LEVEL 9.8 MG/DL (8.5-10.1); CARBON DIOXIDE LEVEL 27 MEQ/L (21-32); CHLORIDE LEVEL 99 MEQ/L (98-107); CREATININE FOR GFR 4.15 MG/DL (0.70-1.30); GLOMERULAR FILTRATION RATE 15.8 (>56); GLUCOSE, FASTING 73 MG/DL (70-100); MAGNESIUM LEVEL 1.9 MG/DL (1.8-2.4); PHOSPHORUS LEVEL 1.5 MG/DL (2.5-4.9); POTASSIUM SERUM 4.5 MEQ/L (3.5-5.1); SODIUM LEVEL 132 MEQ/L (136-145)
[2017-06-28] MEDS: IPRATROPIUM 0.5MG/ALBUTEROL 2.5MG INH SOL UD 3ML (DUONEB)(J7620) NEB ×4 (07:54→20:05)
[2017-06-28] MEDS ORDERED: DARBEPOETIN 100 MCG/0.5 ML *DIALYSIS* SYRINGE (J0882) IV (08:00)
[2017-06-28] MEDS: CALCIUM ACETATE 667 MG GELCAP PO ×3 (08:07→17:55)
[2017-06-28] MEDS: CLOPIDOGREL 75 MG TAB PO (08:07)
[2017-06-28] MEDS: ASPIRIN 81 MG ENTERIC TAB PO (08:07)
[2017-06-28] MEDS: METOPROLOL TART 25 MG TABLET PO ×2 (08:07→21:05)
[2017-06-28] MEDS: EUCERIN 120GM CREAM TOP ×2 (08:08→21:06)
[2017-06-28] MEDS: NORCO, ANEXSIA 5/325MG TABLET (HYDROcodone/ACETAMINOPHEN) PO ×2 (14:02→22:02)
[2017-06-28] MEDS: **VANCO AFTER HD** MISC XX (15:11)
[2017-06-28] MEDS: ATORVASTATIN 20 MG TAB PO (21:05)
[2017-06-29] MEDS: CALCIUM CARBONATE 500 MG CHEW U/D PO ×3 (01:53→23:21)
[2017-06-29 06:05] LABS: BASO # 0.1 10^3/uL (0.0-0.2); BASO % 1.9 % (0.0-1.0); EOS # 0.2 10^3/uL (0.0-0.50); EOS % 3.6 % (0.0-3.0); HEMATOCRIT 27.9 % (42.0-52.0); HEMOGLOBIN 8.8 g/dl (13.5-17.5); IMMATURE GRANULOCYTE % 0.2 % (0-3.0); LYMPH # 1.1 10^3/uL (1.5-4.5); LYMPH % 23.3 % (24.0-44.0); MEAN CORPUSCULAR HEMOGLOBIN 31.8 pg (27.0-33.0); MEAN CORPUSCULAR HGB CONC 31.5 g/dl (32.0-36.5); MEAN CORPUSCULAR VOLUME 100.7 fl (80.0-96.0); MONO # 0.6 10^3/uL (0.0-0.8); MONO % 13.4 % (0.0-5.0); NEUTROPHILS # 2.7 10^3/uL (1.8-7.7); NEUTROPHILS % 57.6 % (36.0-66.0); PLATELET COUNT, AUTOMATED 115 10^3/uL (150-450); RED BLOOD COUNT 2.77 10^6/uL (4.30-6.10); RED CELL DISTRIBUTION WIDTH 18.4 % (11.5-14.5); WHITE BLOOD COUNT 4.8 10^3/uL (4.0-10.0)
[2017-06-29] MEDS: LevoFLOXacin 250 MG TABLET PO (06:16)
[2017-06-29] MEDS: ASPIRIN 81 MG ENTERIC TAB PO (06:16)
[2017-06-29] MEDS: CLOPIDOGREL 75 MG TAB PO (06:16)
[2017-06-29] MEDS: METOPROLOL TART 25 MG TABLET PO ×2 (06:16→21:47)
[2017-06-29] MEDS: diphenhydrAMINE 25 MG CAP PO ×3 (06:16→21:48)
[2017-06-29] MEDS: HEPARIN SOD (PORCINE) 5000 UNITS/ML VIAL SC ×3 (06:17→21:46)
[2017-06-29 06:35] LABS: ALBUMIN 2.5 GM/DL (3.2-5.2); ANION GAP 7 MEQ/L (8-16); BLOOD UREA NITROGEN 21 MG/DL (7-18); CALCIUM LEVEL 10.2 MG/DL (8.5-10.1); CARBON DIOXIDE LEVEL 27 MEQ/L (21-32); CHLORIDE LEVEL 99 MEQ/L (98-107); CREATININE FOR GFR 5.05 MG/DL (0.70-1.30); GLOMERULAR FILTRATION RATE 12.6 (>56); GLUCOSE, FASTING 80 MG/DL (70-100); MAGNESIUM LEVEL 1.9 MG/DL (1.8-2.4); PHOSPHORUS LEVEL 1.9 MG/DL (2.5-4.9); POTASSIUM SERUM 4.7 MEQ/L (3.5-5.1); SODIUM LEVEL 133 MEQ/L (136-145); VANCOMYCIN RANDOM 27.3 UG/ML
[2017-06-29] MEDS: CALCIUM ACETATE 667 MG GELCAP PO ×3 (07:35→17:12)
[2017-06-29] MEDS: EMLA CREAM 5GM (LIDOCAINE/PRILOCAINE) EXT (07:35)
[2017-06-29] MEDS: EUCERIN 120GM CREAM TOP ×2 (07:36→21:48)
[2017-06-29] MEDS: IPRATROPIUM 0.5MG/ALBUTEROL 2.5MG INH SOL UD 3ML (DUONEB)(J7620) NEB ×4 (08:00→20:03)
[2017-06-29] MEDS: NORCO, ANEXSIA 5/325MG TABLET (HYDROcodone/ACETAMINOPHEN) PO (12:31)
[2017-06-29] MEDS: HEPARIN 1,000 UNITS/ML 10ML VIAL (FOR RADIOLOGY& DIALYSIS ONLY) IV (12:33)
[2017-06-29] MEDS: ATORVASTATIN 20 MG TAB PO (21:47)
[2017-06-30] MEDS: HYDROCORTISONE 1% OINTMENT 30GM TOP (02:00)
[2017-06-30] MEDS: HEPARIN SOD (PORCINE) 5000 UNITS/ML VIAL SC ×2 (06:02→14:47)
[2017-06-30] MEDS: LevoFLOXacin 250 MG TABLET PO (06:06)
[2017-06-30] MEDS: NORCO, ANEXSIA 5/325MG TABLET (HYDROcodone/ACETAMINOPHEN) PO (06:07)
[2017-06-30 06:25] LABS: BASO # 0.1 10^3/uL (0.0-0.2); BASO % 1.9 % (0.0-1.0); EOS # 0.1 10^3/uL (0.0-0.50); EOS % 3.7 % (0.0-3.0); HEMATOCRIT 27.1 % (42.0-52.0); HEMOGLOBIN 8.5 g/dl (13.5-17.5); IMMATURE GRANULOCYTE % 0.3 % (0-3.0); LYMPH # 0.8 10^3/uL (1.5-4.5); LYMPH % 22.4 % (24.0-44.0); MEAN CORPUSCULAR HEMOGLOBIN 32.1 pg (27.0-33.0); MEAN CORPUSCULAR HGB CONC 31.4 g/dl (32.0-36.5); MEAN CORPUSCULAR VOLUME 102.3 fl (80.0-96.0); MONO # 0.7 10^3/uL (0.0-0.8); MONO % 18.4 % (0.0-5.0); NEUTROPHILS % 53.3 % (36.0-66.0); PLATELET COUNT, AUTOMATED 100 10^3/uL (150-450); RED BLOOD COUNT 2.65 10^6/uL (4.30-6.10); RED CELL DISTRIBUTION WIDTH 19.1 % (11.5-14.5); WHITE BLOOD COUNT 3.8 10^3/uL (4.0-10.0)
[2017-06-30 06:41] LABS: ALBUMIN 2.3 GM/DL (3.2-5.2); ANION GAP 3 MEQ/L (8-16); BLOOD UREA NITROGEN 13 MG/DL (7-18); C REACTIVE PROTEIN QUANTITATIV 5.05 MG/DL (0.00-0.30); CALCIUM LEVEL 9.3 MG/DL (8.5-10.1); CARBON DIOXIDE LEVEL 31 MEQ/L (21-32); CHLORIDE LEVEL 101 MEQ/L (98-107); CREATININE FOR GFR 3.62 MG/DL (0.70-1.30); GLOMERULAR FILTRATION RATE 18.5 (>56); GLUCOSE, FASTING 84 MG/DL (70-100); MAGNESIUM LEVEL 1.9 MG/DL (1.8-2.4); PHOSPHORUS LEVEL 1.4 MG/DL (2.5-4.9); POTASSIUM SERUM 4.2 MEQ/L (3.5-5.1); SODIUM LEVEL 135 MEQ/L (136-145)
[2017-06-30] MEDS: CALCIUM ACETATE 667 MG GELCAP PO ×2 (07:39→13:27)
[2017-06-30] MEDS: IPRATROPIUM 0.5MG/ALBUTEROL 2.5MG INH SOL UD 3ML (DUONEB)(J7620) NEB ×4 (07:47→20:00)
[2017-06-30] MEDS: CLOPIDOGREL 75 MG TAB PO (07:50)
[2017-06-30] MEDS: ASPIRIN 81 MG ENTERIC TAB PO (07:50)
[2017-06-30] MEDS: METOPROLOL TART 25 MG TABLET PO ×2 (07:50→22:10)
[2017-06-30] MEDS: EUCERIN 120GM CREAM TOP ×2 (07:51→22:10)
[2017-06-30] MEDS ORDERED: MIDAZOLAM INJ 2 MG/2 ML VIAL (J2250) As Ordered ×2 (09:57→10:34)
[2017-06-30] MEDS ORDERED: ISOVUE-300 61% 50ML VIAL (Q9967) As Ordered (09:57)
[2017-06-30] MEDS ORDERED: fentaNYL 100 MCG/2 ML INJECTION (J3010) As Ordered ×2 (09:57→10:34)
[2017-06-30] MEDS ORDERED: HEPARIN 1,000 UNITS/ML 10ML VIAL (FOR RADIOLOGY& DIALYSIS ONLY) As Ordered (09:57)
[2017-06-30] MEDS: CALCIUM CARBONATE 500 MG CHEW U/D PO ×2 (14:27→22:10)
[2017-06-30] MEDS: diphenhydrAMINE 25 MG CAP PO ×2 (14:28→22:10)
[2017-06-30] MEDS: ACETAMINOPHEN TAB 650MG DOSE (2X325MG) PO (14:29)
[2017-06-30] MEDS: **VANCO AFTER HD** MISC XX (15:00)
[2017-06-30] MEDS: ATORVASTATIN 20 MG TAB PO (22:10)
[2017-07-01 05:41] LABS: BASO # 0.1 10^3/uL (0.0-0.2); BASO % 2.3 % (0.0-1.0); EOS # 0.3 10^3/uL (0.0-0.50); EOS % 6.6 % (0.0-3.0); HEMATOCRIT 28.9 % (42.0-52.0); IMMATURE GRANULOCYTE % 0.5 % (0-3.0); LYMPH # 1.1 10^3/uL (1.5-4.5); LYMPH % 24.9 % (24.0-44.0); MEAN CORPUSCULAR HEMOGLOBIN 32.1 pg (27.0-33.0); MEAN CORPUSCULAR HGB CONC 31.1 g/dl (32.0-36.5); MEAN CORPUSCULAR VOLUME 103.2 fl (80.0-96.0); MONO # 0.8 10^3/uL (0.0-0.8); MONO % 17.4 % (0.0-5.0); NEUTROPHILS # 2.1 10^3/uL (1.8-7.7); NEUTROPHILS % 48.3 % (36.0-66.0); PLATELET COUNT, AUTOMATED 131 10^3/uL (150-450); RED CELL DISTRIBUTION WIDTH 19.6 % (11.5-14.5); WHITE BLOOD COUNT 4.4 10^3/uL (4.0-10.0)
[2017-07-01] MEDS: NORCO, ANEXSIA 5/325MG TABLET (HYDROcodone/ACETAMINOPHEN) PO ×2 (05:50→20:14)
[2017-07-01 05:57] LABS: ALBUMIN 2.4 GM/DL (3.2-5.2); ANION GAP 4 MEQ/L (8-16); BLOOD UREA NITROGEN 18 MG/DL (7-18); CALCIUM LEVEL 9.2 MG/DL (8.5-10.1); CARBON DIOXIDE LEVEL 27 MEQ/L (21-32); CHLORIDE LEVEL 102 MEQ/L (98-107); CREATININE FOR GFR 4.57 MG/DL (0.70-1.30); GLOMERULAR FILTRATION RATE 14.1 (>56); GLUCOSE, FASTING 61 MG/DL (70-100); MAGNESIUM LEVEL 1.8 MG/DL (1.8-2.4); PHOSPHORUS LEVEL 1.5 MG/DL (2.5-4.9); SODIUM LEVEL 133 MEQ/L (136-145); VANCOMYCIN RANDOM 20.8 UG/ML
[2017-07-01 06:01] LABS: POTASSIUM SERUM 5.3 MEQ/L (3.5-5.1)
[2017-07-01] MEDS: LevoFLOXacin 250 MG TABLET PO (06:47)
[2017-07-01] MEDS: ASPIRIN 81 MG ENTERIC TAB PO (06:47)
[2017-07-01] MEDS: CLOPIDOGREL 75 MG TAB PO (06:48)
[2017-07-01] MEDS: METOPROLOL TART 25 MG TABLET PO ×2 (06:48→20:12)
[2017-07-01] MEDS: EUCERIN 120GM CREAM TOP ×2 (06:48→20:12)
[2017-07-01] MEDS: diphenhydrAMINE 25 MG CAP PO ×2 (06:48→20:12)
[2017-07-01] MEDS: HYDROCORTISONE 1% OINTMENT 30GM TOP (06:49)
[2017-07-01] MEDS: IPRATROPIUM 0.5MG/ALBUTEROL 2.5MG INH SOL UD 3ML (DUONEB)(J7620) NEB ×4 (07:15→17:01)
[2017-07-01] MEDS: EMLA CREAM 5GM (LIDOCAINE/PRILOCAINE) EXT (08:36)
[2017-07-01] MEDS: HEPARIN 1,000 UNITS/ML 10ML VIAL (FOR RADIOLOGY& DIALYSIS ONLY) IV (13:30)
[2017-07-01] MEDS: **VANCO AFTER HD** MISC XX (16:00)
[2017-07-01] MEDS: VANCOMYCIN HCL 500 MG in D5W MINI-BAG PLUS 100 ML IV (18:07)
[2017-07-01] MEDS: ATORVASTATIN 20 MG TAB PO (20:11)
[2017-07-01] MEDS: CALCIUM CARBONATE 500 MG CHEW U/D PO (20:12)
[2017-07-02] MEDS: LevoFLOXacin 250 MG TABLET PO (05:21)
[2017-07-02] MEDS: NORCO, ANEXSIA 5/325MG TABLET (HYDROcodone/ACETAMINOPHEN) PO ×2 (05:21→20:12)
[2017-07-02 06:18] LABS: BASO # 0.1 10^3/uL (0.0-0.2); BASO % 1.6 % (0.0-1.0); EOS # 0.2 10^3/uL (0.0-0.50); EOS % 4.7 % (0.0-3.0); HEMATOCRIT 28.9 % (42.0-52.0); HEMOGLOBIN 8.9 g/dl (13.5-17.5); IMMATURE GRANULOCYTE % 0.2 % (0-3.0); LYMPH # 1.2 10^3/uL (1.5-4.5); LYMPH % 24.5 % (24.0-44.0); MEAN CORPUSCULAR HEMOGLOBIN 31.2 pg (27.0-33.0); MEAN CORPUSCULAR HGB CONC 30.8 g/dl (32.0-36.5); MEAN CORPUSCULAR VOLUME 101.4 fl (80.0-96.0); MONO # 0.8 10^3/uL (0.0-0.8); MONO % 17.3 % (0.0-5.0); NEUTROPHILS # 2.5 10^3/uL (1.8-7.7); NEUTROPHILS % 51.7 % (36.0-66.0); PLATELET COUNT, AUTOMATED 124 10^3/uL (150-450); RED BLOOD COUNT 2.85 10^6/uL (4.30-6.10); RED CELL DISTRIBUTION WIDTH 19.3 % (11.5-14.5); WHITE BLOOD COUNT 4.9 10^3/uL (4.0-10.0)
[2017-07-02 06:42] LABS: ALBUMIN 2.3 GM/DL (3.2-5.2); ANION GAP 7 MEQ/L (8-16); BLOOD UREA NITROGEN 10 MG/DL (7-18); C REACTIVE PROTEIN QUANTITATIV 6.09 MG/DL (0.00-0.30); CALCIUM LEVEL 8.4 MG/DL (8.5-10.1); CARBON DIOXIDE LEVEL 29 MEQ/L (21-32); CHLORIDE LEVEL 97 MEQ/L (98-107); CREATININE FOR GFR 3.25 MG/DL (0.70-1.30); GLUCOSE, FASTING 73 MG/DL (70-100); MAGNESIUM LEVEL 1.9 MG/DL (1.8-2.4); PHOSPHORUS LEVEL 1.4 MG/DL (2.5-4.9); POTASSIUM SERUM 4.2 MEQ/L (3.5-5.1); SODIUM LEVEL 133 MEQ/L (136-145)
[2017-07-02] MEDS: IPRATROPIUM 0.5MG/ALBUTEROL 2.5MG INH SOL UD 3ML (DUONEB)(J7620) NEB ×4 (07:20→21:05)
[2017-07-02] MEDS ORDERED: ISOVUE-300 61% 50ML VIAL (Q9967) As Ordered (07:56)
[2017-07-02] MEDS ORDERED: fentaNYL 100 MCG/2 ML INJECTION (J3010) As Ordered (07:56)
[2017-07-02] MEDS ORDERED: MIDAZOLAM INJ 2 MG/2 ML VIAL (J2250) As Ordered (07:56)
[2017-07-02] MEDS: CLOPIDOGREL 75 MG TAB PO (10:38)
[2017-07-02] MEDS: EUCERIN 120GM CREAM TOP ×2 (10:39→20:11)
[2017-07-02] MEDS: ASPIRIN 81 MG ENTERIC TAB PO (10:39)
[2017-07-02] MEDS: METOPROLOL TART 25 MG TABLET PO ×2 (10:40→20:11)
[2017-07-02] MEDS: **VANCO AFTER HD** MISC XX (15:38)
[2017-07-02] MEDS: ATORVASTATIN 20 MG TAB PO (20:10)
[2017-07-02] MEDS: diphenhydrAMINE 25 MG CAP PO (20:10)
[2017-07-02] MEDS: CALCIUM CARBONATE 500 MG CHEW U/D PO (20:10)
[2017-07-03 00:07] LABS: HEPARIN INDUCED PLATELET ABY 0.252 OD (0.000-0.400)
[2017-07-03] MEDS: ASPIRIN 81 MG ENTERIC TAB PO (05:27)
[2017-07-03] MEDS: CLOPIDOGREL 75 MG TAB PO (05:27)
[2017-07-03] MEDS: METOPROLOL TART 25 MG TABLET PO ×2 (05:28→20:31)
[2017-07-03] MEDS: EUCERIN 120GM CREAM TOP ×2 (05:29→20:32)
[2017-07-03] MEDS: NORCO, ANEXSIA 5/325MG TABLET (HYDROcodone/ACETAMINOPHEN) PO ×3 (05:29→21:26)
[2017-07-03 07:04] LABS: BASO # 0.1 10^3/uL (0.0-0.2); BASO % 1.5 % (0.0-1.0); EOS # 0.2 10^3/uL (0.0-0.50); EOS % 4.7 % (0.0-3.0); HEMATOCRIT 27.5 % (42.0-52.0); HEMOGLOBIN 8.8 g/dl (13.5-17.5); IMMATURE GRANULOCYTE % 0.2 % (0-3.0); LYMPH # 1.1 10^3/uL (1.5-4.5); LYMPH % 22.9 % (24.0-44.0); MONO # 0.8 10^3/uL (0.0-0.8); MONO % 16.1 % (0.0-5.0); NEUTROPHILS # 2.6 10^3/uL (1.8-7.7); NEUTROPHILS % 54.6 % (36.0-66.0); PLATELET COUNT, AUTOMATED 122 10^3/uL (150-450); RED BLOOD COUNT 2.75 10^6/uL (4.30-6.10); RED CELL DISTRIBUTION WIDTH 18.8 % (11.5-14.5); WHITE BLOOD COUNT 4.7 10^3/uL (4.0-10.0)
[2017-07-03] MEDS: IPRATROPIUM 0.5MG/ALBUTEROL 2.5MG INH SOL UD 3ML (DUONEB)(J7620) NEB ×4 (07:18→19:42)
[2017-07-03 07:19] LABS: ALBUMIN 2.2 GM/DL (3.2-5.2); ANION GAP 7 MEQ/L (8-16); BLOOD UREA NITROGEN 17 MG/DL (7-18); CALCIUM LEVEL 8.1 MG/DL (8.5-10.1); CARBON DIOXIDE LEVEL 28 MEQ/L (21-32); CHLORIDE LEVEL 95 MEQ/L (98-107); CREATININE FOR GFR 4.32 MG/DL (0.70-1.30); GLOMERULAR FILTRATION RATE 15.1 (>56); GLUCOSE, FASTING 68 MG/DL (70-100); MAGNESIUM LEVEL 1.8 MG/DL (1.8-2.4); PHOSPHORUS LEVEL 1.7 MG/DL (2.5-4.9); POTASSIUM SERUM 4.4 MEQ/L (3.5-5.1); SODIUM LEVEL 130 MEQ/L (136-145)
[2017-07-03] MEDS ORDERED: fentaNYL 100 MCG/2 ML INJECTION (J3010) As Ordered (07:42)
[2017-07-03] MEDS ORDERED: PROPOFOL 200 MG/20 ML VIAL As Ordered (07:43)
[2017-07-03] MEDS: EMLA CREAM 5GM (LIDOCAINE/PRILOCAINE) EXT (08:38)
[2017-07-03] MEDS: LIDOCAINE 1% SDV INJ 30 ML VIAL As Ordered (09:27)
[2017-07-03] MEDS: BUPIVACAINE HCL 0.5% 30 ML VIAL As Ordered (09:27)
[2017-07-03] MEDS ORDERED: ONDANSETRON 4MG/2ML VIAL (J2405) IV (10:00)
[2017-07-03] MEDS ORDERED: fentaNYL 100 MCG/2 ML INJECTION (J3010) IV (10:00)
[2017-07-03] MEDS: LR 1,000 ML IV (10:47)
[2017-07-03 14:22] LABS: BEDSIDE GLUCOSE 66 MG/DL (70-105)
[2017-07-03 14:22] LABS: BEDSIDE GLUCOSE 76 MG/DL (70-105)
[2017-07-03] MEDS: **VANCO AFTER HD** MISC XX (16:01)
[2017-07-03] MEDS: CALCIUM CARBONATE 500 MG CHEW U/D PO (18:43)
[2017-07-03] MEDS: ATORVASTATIN 20 MG TAB PO (20:31)
[2017-07-04] MEDS: CALCIUM CARBONATE 500 MG CHEW U/D PO (01:21)
[2017-07-04] MEDS: NORCO, ANEXSIA 5/325MG TABLET (HYDROcodone/ACETAMINOPHEN) PO ×2 (01:22→07:57)
[2017-07-04 05:51] LABS: BASO # 0.1 10^3/uL (0.0-0.2); BASO % 1.2 % (0.0-1.0); EOS # 0.3 10^3/uL (0.0-0.50); EOS % 6.9 % (0.0-3.0); HEMATOCRIT 27.6 % (42.0-52.0); HEMOGLOBIN 8.9 g/dl (13.5-17.5); IMMATURE GRANULOCYTE % 0.2 % (0-3.0); LYMPH % 19.3 % (24.0-44.0); MEAN CORPUSCULAR HEMOGLOBIN 32.2 pg (27.0-33.0); MEAN CORPUSCULAR HGB CONC 32.2 g/dl (32.0-36.5); MONO # 0.9 10^3/uL (0.0-0.8); MONO % 17.4 % (0.0-5.0); NEUTROPHILS # 2.7 10^3/uL (1.8-7.7); PLATELET COUNT, AUTOMATED 125 10^3/uL (150-450); RED BLOOD COUNT 2.76 10^6/uL (4.30-6.10); RED CELL DISTRIBUTION WIDTH 18.9 % (11.5-14.5); WHITE BLOOD COUNT 4.9 10^3/uL (4.0-10.0)
[2017-07-04 06:09] LABS: ALBUMIN 2.3 GM/DL (3.2-5.2); ANION GAP 8 MEQ/L (8-16); BLOOD UREA NITROGEN 26 MG/DL (7-18); CALCIUM LEVEL 8.2 MG/DL (8.5-10.1); CARBON DIOXIDE LEVEL 28 MEQ/L (21-32); CHLORIDE LEVEL 92 MEQ/L (98-107); CREATININE FOR GFR 4.97 MG/DL (0.70-1.30); GLOMERULAR FILTRATION RATE 12.8 (>56); GLUCOSE, FASTING 80 MG/DL (70-100); MAGNESIUM LEVEL 1.7 MG/DL (1.8-2.4); PHOSPHORUS LEVEL 2.2 MG/DL (2.5-4.9); POTASSIUM SERUM 4.3 MEQ/L (3.5-5.1); SODIUM LEVEL 128 MEQ/L (136-145)
[2017-07-04] MEDS: CLOPIDOGREL 75 MG TAB PO (06:45)
[2017-07-04] MEDS: ASPIRIN 81 MG ENTERIC TAB PO (06:45)
[2017-07-04] MEDS: METOPROLOL TART 25 MG TABLET PO ×2 (06:45→21:12)
[2017-07-04] MEDS: EUCERIN 120GM CREAM TOP ×2 (06:45→21:00)
[2017-07-04] MEDS: IPRATROPIUM 0.5MG/ALBUTEROL 2.5MG INH SOL UD 3ML (DUONEB)(J7620) NEB ×4 (07:48→20:00)
[2017-07-04] MEDS: diphenhydrAMINE 25 MG CAP PO (07:56)
[2017-07-04] MEDS: ATORVASTATIN 20 MG TAB PO (21:11)
[2017-07-05] MEDS: NORCO, ANEXSIA 5/325MG TABLET (HYDROcodone/ACETAMINOPHEN) PO ×4 (02:43→21:58)
[2017-07-05 05:54] LABS: BASO # 0.1 10^3/uL (0.0-0.2); BASO % 1.7 % (0.0-1.0); EOS # 0.3 10^3/uL (0.0-0.50); EOS % 6.4 % (0.0-3.0); HEMATOCRIT 28.1 % (42.0-52.0); HEMOGLOBIN 8.9 g/dl (13.5-17.5); IMMATURE GRANULOCYTE % 0.2 % (0-3.0); LYMPH # 0.9 10^3/uL (1.5-4.5); LYMPH % 17.6 % (24.0-44.0); MEAN CORPUSCULAR HEMOGLOBIN 32.1 pg (27.0-33.0); MEAN CORPUSCULAR HGB CONC 31.7 g/dl (32.0-36.5); MEAN CORPUSCULAR VOLUME 101.4 fl (80.0-96.0); MONO # 0.8 10^3/uL (0.0-0.8); MONO % 14.9 % (0.0-5.0); NEUTROPHILS # 3.1 10^3/uL (1.8-7.7); NEUTROPHILS % 59.2 % (36.0-66.0); PLATELET COUNT, AUTOMATED 137 10^3/uL (150-450); RED BLOOD COUNT 2.77 10^6/uL (4.30-6.10); RED CELL DISTRIBUTION WIDTH 19.4 % (11.5-14.5); WHITE BLOOD COUNT 5.2 10^3/uL (4.0-10.0)
[2017-07-05 06:14] LABS: ALBUMIN 2.4 GM/DL (3.2-5.2); ANION GAP 7 MEQ/L (8-16); BLOOD UREA NITROGEN 14 MG/DL (7-18); CALCIUM LEVEL 8.7 MG/DL (8.5-10.1); CARBON DIOXIDE LEVEL 28 MEQ/L (21-32); CHLORIDE LEVEL 98 MEQ/L (98-107); CREATININE FOR GFR 3.47 MG/DL (0.70-1.30); GLOMERULAR FILTRATION RATE 19.4 (>56); GLUCOSE, FASTING 76 MG/DL (70-100); MAGNESIUM LEVEL 1.9 MG/DL (1.8-2.4); PHOSPHORUS LEVEL 1.3 MG/DL (2.5-4.9); POTASSIUM SERUM 4.1 MEQ/L (3.5-5.1); SODIUM LEVEL 133 MEQ/L (136-145)
[2017-07-05] MEDS: IPRATROPIUM 0.5MG/ALBUTEROL 2.5MG INH SOL UD 3ML (DUONEB)(J7620) NEB ×4 (07:37→20:18)
[2017-07-05] MEDS: ASPIRIN 81 MG ENTERIC TAB PO (09:23)
[2017-07-05] MEDS: CLOPIDOGREL 75 MG TAB PO (09:23)
[2017-07-05] MEDS: diphenhydrAMINE 25 MG CAP PO (09:24)
[2017-07-05] MEDS: METOPROLOL TART 25 MG TABLET PO ×2 (09:25→21:57)
[2017-07-05] MEDS: EUCERIN 120GM CREAM TOP ×2 (09:25→21:57)
[2017-07-05] MEDS: CALCIUM CARBONATE 500 MG CHEW U/D PO ×3 (11:07→22:04)
[2017-07-05] MEDS ORDERED: IRON SUCROSE 100MG 5ML VIAL (J1756 PER 1MG) IV (16:45)
[2017-07-05] MEDS: ATORVASTATIN 20 MG TAB PO (21:56)
[2017-07-06] MEDS: NORCO, ANEXSIA 5/325MG TABLET (HYDROcodone/ACETAMINOPHEN) PO ×2 (04:01→18:20)
[2017-07-06] MEDS: diphenhydrAMINE 25 MG CAP PO (06:24)
[2017-07-06] MEDS: CALCIUM CARBONATE 500 MG CHEW U/D PO (06:24)
[2017-07-06] MEDS: METOPROLOL TART 25 MG TABLET PO ×2 (06:25→21:44)
[2017-07-06] MEDS: CLOPIDOGREL 75 MG TAB PO (06:25)
[2017-07-06] MEDS: ASPIRIN 81 MG ENTERIC TAB PO (06:25)
[2017-07-06] MEDS: EUCERIN 120GM CREAM TOP ×2 (06:26→21:44)
[2017-07-06] MEDS: IPRATROPIUM 0.5MG/ALBUTEROL 2.5MG INH SOL UD 3ML (DUONEB)(J7620) NEB ×4 (07:49→20:04)
[2017-07-06] MEDS: EMLA CREAM 5GM (LIDOCAINE/PRILOCAINE) EXT (09:00)
[2017-07-06 13:42] LABS: HEMATOCRIT 26.8 % (42.0-52.0); HEMOGLOBIN 8.8 g/dl (13.5-17.5); MEAN CORPUSCULAR HEMOGLOBIN 33.1 pg (27.0-33.0); MEAN CORPUSCULAR HGB CONC 32.8 g/dl (32.0-36.5); MEAN CORPUSCULAR VOLUME 100.8 fl (80.0-96.0); PLATELET COUNT, AUTOMATED 131 10^3/uL (150-450); RED BLOOD COUNT 2.66 10^6/uL (4.30-6.10); RED CELL DISTRIBUTION WIDTH 19.5 % (11.5-14.5); WHITE BLOOD COUNT 4.6 10^3/uL (4.0-10.0)
[2017-07-06 13:59] LABS: ANION GAP 9 MEQ/L (8-16); BLOOD UREA NITROGEN 19 MG/DL (7-18); CALCIUM LEVEL 8.3 MG/DL (8.5-10.1); CARBON DIOXIDE LEVEL 26 MEQ/L (21-32); CHLORIDE LEVEL 93 MEQ/L (98-107); CREATININE FOR GFR 4.51 MG/DL (0.70-1.30); GLOMERULAR FILTRATION RATE 14.4 (>56); GLUCOSE, FASTING 91 MG/DL (70-100); POTASSIUM SERUM 3.9 MEQ/L (3.5-5.1); SODIUM LEVEL 128 MEQ/L (136-145)
[2017-07-06] MEDS: HEPARIN 1,000 UNITS/ML 10ML VIAL (FOR RADIOLOGY& DIALYSIS ONLY) IV (14:45)
[2017-07-06] MEDS: ATORVASTATIN 20 MG TAB PO (21:44)
[2017-07-07] MEDS: CALCIUM CARBONATE 500 MG CHEW U/D PO (00:58)
[2017-07-07 05:50] LABS: HEMATOCRIT 28.6 % (42.0-52.0); HEMOGLOBIN 9.2 g/dl (13.5-17.5); MEAN CORPUSCULAR HEMOGLOBIN 32.6 pg (27.0-33.0); MEAN CORPUSCULAR HGB CONC 32.2 g/dl (32.0-36.5); MEAN CORPUSCULAR VOLUME 101.4 fl (80.0-96.0); PLATELET COUNT, AUTOMATED 129 10^3/uL (150-450); RED BLOOD COUNT 2.82 10^6/uL (4.30-6.10); RED CELL DISTRIBUTION WIDTH 19.8 % (11.5-14.5); WHITE BLOOD COUNT 4.2 10^3/uL (4.0-10.0)
[2017-07-07 06:10] LABS: ALBUMIN 2.4 GM/DL (3.2-5.2); ANION GAP 5 MEQ/L (8-16); BLOOD UREA NITROGEN 13 MG/DL (7-18); CARBON DIOXIDE LEVEL 28 MEQ/L (21-32); CHLORIDE LEVEL 99 MEQ/L (98-107); CREATININE FOR GFR 3.07 MG/DL (0.70-1.30); GLOMERULAR FILTRATION RATE 22.4 (>56); GLUCOSE, FASTING 64 MG/DL (70-100); PHOSPHORUS LEVEL 1.8 MG/DL (2.5-4.9); POTASSIUM SERUM 4.3 MEQ/L (3.5-5.1); SODIUM LEVEL 132 MEQ/L (136-145)
[2017-07-07] MEDS: IPRATROPIUM 0.5MG/ALBUTEROL 2.5MG INH SOL UD 3ML (DUONEB)(J7620) NEB (07:20)
[2017-07-07] MEDS: ASPIRIN 81 MG ENTERIC TAB PO (10:13)
[2017-07-07] MEDS: CLOPIDOGREL 75 MG TAB PO (10:13)
[2017-07-07] MEDS: METOPROLOL TART 25 MG TABLET PO (10:13)
[2017-07-07] MEDS: NORCO, ANEXSIA 5/325MG TABLET (HYDROcodone/ACETAMINOPHEN) PO (10:13)
[2017-07-07] MEDS: EUCERIN 120GM CREAM TOP (10:14)
== END 2017-07-07 11:00 | DRG 853 ==
LOC: M ED INP 06-11 00:03 → M ED 19:18 → M MSPAV 06-11 13:40
PROC: 0Y6M0ZF Detachment at Right Foot, Partial 5th Ray, Open Approach (ICD-10-PCS; principal; 2017-06-15 13:55)
PROC: 0KBV0ZZ Excision of Right Foot Muscle, Open Approach (ICD-10-PCS; 2017-06-15 17:49)
PROC: 3E0U029 Introduction of Other Anti-infective into Joints, Open Approach (ICD-10-PCS; 2017-06-15 17:49)
PROC: 5A1D70Z Performance of Urinary Filtration, Intermittent, Less than 6 Hours Per Day (ICD-10-PCS; 2017-06-15 17:49)
PROC: 30233N1 Transfusion of Nonautologous Red Blood Cells into Peripheral Vein, Percutaneous Approach (ICD-10-PCS; 2017-06-15 17:49)
PROC: 047D3DZ Dilation of Left Common Iliac Artery with Intraluminal Device, Percutaneous Approach (ICD-10-PCS; 2017-06-15 17:49)
PROC: 047C3DZ Dilation of Right Common Iliac Artery with Intraluminal Device, Percutaneous Approach (ICD-10-PCS; 2017-06-15 17:49)
PROC: B41DYZZ Fluoroscopy of Aorta and Bilateral Lower Extremity Arteries using Other Contrast (ICD-10-PCS; 2017-06-15 17:49)
PROC: 047K3ZZ Dilation of Right Femoral Artery, Percutaneous Approach (ICD-10-PCS; 2017-06-15 17:49)
PROC: 047M3ZZ Dilation of Right Popliteal Artery, Percutaneous Approach (ICD-10-PCS; 2017-06-15 17:49)
PROC: B51WYZZ Fluoroscopy of Dialysis Shunt/Fistula using Other Contrast (ICD-10-PCS; 2017-06-15 17:49)
DX: A41.9 Sepsis, unspecified organism (principal); J18.9 Pneumonia, unspecified organism; G93.41 Metabolic encephalopathy; N18.6 End stage renal disease; E87.1 Hypo-osmolality and hyponatremia; T81.30XA Disruption of wound, unspecified, initial encounter; I50.22 Chronic systolic (congestive) heart failure; I13.2 Hypertensive heart and chronic kidney disease with heart failure and with stage 5 chronic kidney disease, or end stage renal disease; M86.671 Other chronic osteomyelitis, right ankle and foot; T82.898A Other specified complication of vascular prosthetic devices, implants and grafts, initial encounter; Z66 Do not resuscitate; E11.621 Type 2 diabetes mellitus with foot ulcer; B95.61 Methicillin susceptible Staphylococcus aureus infection as the cause of diseases classified elsewhere; L97.519 Non-pressure chronic ulcer of other part of right foot with unspecified severity; I70.235 Atherosclerosis of native arteries of right leg with ulceration of other part of foot; R41.82 Altered mental status, unspecified; I70.0 Atherosclerosis of aorta; E11.51 Type 2 diabetes mellitus with diabetic peripheral angiopathy without gangrene; E11.22 Type 2 diabetes mellitus with diabetic chronic kidney disease; B95.0 Streptococcus, group A, as the cause of diseases classified elsewhere; E11.40 Type 2 diabetes mellitus with diabetic neuropathy, unspecified; F17.210 Nicotine dependence, cigarettes, uncomplicated; I25.10 Atherosclerotic heart disease of native coronary artery without angina pectoris; I48.0 Paroxysmal atrial fibrillation; D63.1 Anemia in chronic kidney disease; J44.9 Chronic obstructive pulmonary disease, unspecified; R65.20 Severe sepsis without septic shock; K21.9 Gastro-esophageal reflux disease without esophagitis; Z95.1 Presence of aortocoronary bypass graft; Z95.828 Presence of other vascular implants and grafts; Z91.018 Allergy to other foods; Z91.048 Other nonmedicinal substance allergy status; Z88.8 Allergy status to other drugs, medicaments and biological substances; Z99.2 Dependence on renal dialysis; Z79.82 Long term (current) use of aspirin; Z79.02 Long term (current) use of antithrombotics/antiplatelets; Z86.73 Personal history of transient ischemic attack (TIA), and cerebral infarction without residual deficits; Z91.19 Patient's noncompliance with other medical treatment and regimen; Z89.411 Acquired absence of right great toe; Z91.14 Patient's other noncompliance with medication regimen; Y82.9 Unspecified medical devices associated with adverse incidents

== ENCOUNTER → 2017-07-08 | Outpatient (REF) ==
[2017-07-08 13:23] LABS: HEPATITIS B SURFACE ANTIBODY POSITIVE (POSITIVE)
[2017-07-08 13:34] LABS: HEPATITIS B SURFACE ANTIGEN NEGATIVE (NEGATIVE)
[2017-07-14 00:09] LABS: ANTINUCLEAR ANTIBODIES DIRECT Negative (Negative); LIVER-KIDNEY MICROSOMAL ABY 1.7 Units (0.0-20.0)
== END ==
LOC: SKLAB2 07:00
DX: D64.9 Anemia, unspecified (principal); N18.9 Chronic kidney disease, unspecified

== ENCOUNTER → 2017-07-15 | Outpatient (REF) ==
[2017-07-15 11:54] LABS: HEMATOCRIT 35.3 % (42.0-52.0); HEMOGLOBIN 11.3 g/dl (13.5-17.5); MEAN CORPUSCULAR HEMOGLOBIN 33.4 pg (27.0-33.0); MEAN CORPUSCULAR VOLUME 104.4 fl (80.0-96.0); RED BLOOD COUNT 3.38 10^6/uL (4.30-6.10); RED CELL DISTRIBUTION WIDTH 19.9 % (11.5-14.5); WHITE BLOOD COUNT 3.9 10^3/uL (4.0-10.0)
[2017-07-15 12:28] LABS: IMMATURE PLATELET FRACTION % 5.7 % (0.0-10.9); PLATELET COUNT, AUTOMATED 88 10^3/uL (150-450)
== END ==
LOC: SKLAB2 14:38
DX: D64.9 Anemia, unspecified (principal)

== ENCOUNTER → 2017-07-15 | Outpatient (REF) | LOC: SKLAB2 08:46 | DX: R06.02 Shortness of breath (principal) ==

== ENCOUNTER → 2017-07-15 | Outpatient (REF) | LOC: SKLAB2 15:11 | DX: Z22.322 Carrier or suspected carrier of Methicillin resistant Staphylococcus aureus (principal) ==

== ENCOUNTER 2017-07-22 03:37 | Inpatient (IN) | payer MEDICARE, MEDICAID ==
[2017-07-22 04:10] LABS: BASO # 0.1 10^3/uL (0.0-0.2); BASO % 1.3 % (0.0-1.0); EOS # 0.3 10^3/uL (0.0-0.50); HEMATOCRIT 32.2 % (42.0-52.0); HEMOGLOBIN 10.2 g/dl (13.5-17.5); IMMATURE GRANULOCYTE % 0.3 % (0-3.0); LYMPH # 0.8 10^3/uL (1.5-4.5); LYMPH % 13.2 % (24.0-44.0); MEAN CORPUSCULAR HEMOGLOBIN 32.9 pg (27.0-33.0); MEAN CORPUSCULAR HGB CONC 31.7 g/dl (32.0-36.5); MEAN CORPUSCULAR VOLUME 103.9 fl (80.0-96.0); MONO # 0.8 10^3/uL (0.0-0.8); MONO % 13.4 % (0.0-5.0); NEUTROPHILS # 4.1 10^3/uL (1.8-7.7); NEUTROPHILS % 66.8 % (36.0-66.0); PLATELET COUNT, AUTOMATED 194 10^3/uL (150-450); RED CELL DISTRIBUTION WIDTH 18.4 % (11.5-14.5); WHITE BLOOD COUNT 6.1 10^3/uL (4.0-10.0)
[2017-07-22 04:30] LABS: ANION GAP 10 MEQ/L (8-16); BLOOD UREA NITROGEN 41 MG/DL (7-18); CALCIUM LEVEL 8.7 MG/DL (8.5-10.1); CARBON DIOXIDE LEVEL 22 MEQ/L (21-32); CHLORIDE LEVEL 99 MEQ/L (98-107); CREATININE FOR GFR 6.24 MG/DL (0.70-1.30); GLOMERULAR FILTRATION RATE 9.9 (>56); GLUCOSE, FASTING 87 MG/DL (70-100); SODIUM LEVEL 131 MEQ/L (136-145)
[2017-07-22] MEDS: NS 500 ML IV (04:57)
[2017-07-22] MEDS ORDERED: ONDANSETRON 4MG/2ML VIAL (J2405) IV (10:30)
[2017-07-22] MEDS: VANCOMYCIN ORAL SOL 250MG/5ML ORAL SYRINGE PO ×2 (16:20→19:37)
[2017-07-22] MEDS: METOPROLOL TART 25 MG TABLET PO ×2 (16:20→20:27)
[2017-07-22] MEDS: CALCIUM ACETATE 667 MG GELCAP PO ×2 (16:21→18:23)
[2017-07-22] MEDS: ACETAMINOPHEN TAB 650MG DOSE (2X325MG) PO (18:23)
[2017-07-22] MEDS: CLOPIDOGREL 75 MG TAB PO (18:23)
[2017-07-22] MEDS: ASPIRIN 81 MG ENTERIC TAB PO (18:23)
[2017-07-22] MEDS: ATORVASTATIN 20 MG TAB PO (20:27)
[2017-07-23] MEDS: VANCOMYCIN ORAL SOL 250MG/5ML ORAL SYRINGE PO ×5 (00:46→23:14)
[2017-07-23 06:29] LABS: HEMATOCRIT 29.2 % (42.0-52.0); HEMOGLOBIN 9.4 g/dl (13.5-17.5); MEAN CORPUSCULAR HGB CONC 32.2 g/dl (32.0-36.5); MEAN CORPUSCULAR VOLUME 102.5 fl (80.0-96.0); PLATELET COUNT, AUTOMATED 159 10^3/uL (150-450); RED BLOOD COUNT 2.85 10^6/uL (4.30-6.10); RED CELL DISTRIBUTION WIDTH 18.2 % (11.5-14.5); WHITE BLOOD COUNT 4.5 10^3/uL (4.0-10.0)
[2017-07-23 06:47] LABS: ANION GAP 7 MEQ/L (8-16); BLOOD UREA NITROGEN 19 MG/DL (7-18); CALCIUM LEVEL 8.5 MG/DL (8.5-10.1); CARBON DIOXIDE LEVEL 27 MEQ/L (21-32); CHLORIDE LEVEL 101 MEQ/L (98-107); CREATININE FOR GFR 3.99 MG/DL (0.70-1.30); GLOMERULAR FILTRATION RATE 16.5 (>56); GLUCOSE, FASTING 75 MG/DL (70-100); POTASSIUM SERUM 3.7 MEQ/L (3.5-5.1); SODIUM LEVEL 135 MEQ/L (136-145)
[2017-07-23] MEDS: CLOPIDOGREL 75 MG TAB PO (09:23)
[2017-07-23] MEDS: CALCIUM ACETATE 667 MG GELCAP PO ×3 (09:23→18:13)
[2017-07-23] MEDS: ASPIRIN 81 MG ENTERIC TAB PO (09:24)
[2017-07-23] MEDS: METOPROLOL TART 25 MG TABLET PO ×2 (09:24→20:58)
[2017-07-23] MEDS: ATORVASTATIN 20 MG TAB PO (20:58)
[2017-07-23] MEDS: ACETAMINOPHEN TAB 650MG DOSE (2X325MG) PO (20:59)
[2017-07-24] MEDS ORDERED: LIDOCAINE 4% CREAM 5GM (LMX4) TOP (05:00)
[2017-07-24 06:22] LABS: HEMATOCRIT 30.2 % (42.0-52.0); HEMOGLOBIN 9.5 g/dl (13.5-17.5); MEAN CORPUSCULAR HEMOGLOBIN 33.2 pg (27.0-33.0); MEAN CORPUSCULAR HGB CONC 31.5 g/dl (32.0-36.5); MEAN CORPUSCULAR VOLUME 105.6 fl (80.0-96.0); PLATELET COUNT, AUTOMATED 158 10^3/uL (150-450); RED BLOOD COUNT 2.86 10^6/uL (4.30-6.10); RED CELL DISTRIBUTION WIDTH 18.1 % (11.5-14.5); WHITE BLOOD COUNT 5.1 10^3/uL (4.0-10.0)
[2017-07-24] MEDS: VANCOMYCIN ORAL SOL 250MG/5ML ORAL SYRINGE PO ×3 (06:46→17:48)
[2017-07-24] MEDS: CLOPIDOGREL 75 MG TAB PO (06:47)
[2017-07-24] MEDS: CALCIUM ACETATE 667 MG GELCAP PO ×3 (06:47→17:48)
[2017-07-24] MEDS: METOPROLOL TART 25 MG TABLET PO ×2 (06:47→20:26)
[2017-07-24] MEDS: ASPIRIN 81 MG ENTERIC TAB PO (06:47)
[2017-07-24 06:49] LABS: ANION GAP 6 MEQ/L (8-16); BLOOD UREA NITROGEN 29 MG/DL (7-18); CALCIUM LEVEL 8.7 MG/DL (8.5-10.1); CARBON DIOXIDE LEVEL 28 MEQ/L (21-32); CHLORIDE LEVEL 99 MEQ/L (98-107); CREATININE FOR GFR 4.71 MG/DL (0.70-1.30); GLOMERULAR FILTRATION RATE 13.6 (>56); GLUCOSE, FASTING 86 MG/DL (70-100); POTASSIUM SERUM 4.2 MEQ/L (3.5-5.1); SODIUM LEVEL 133 MEQ/L (136-145)
[2017-07-24] MEDS: HEPARIN 1,000 UNITS/ML 10ML VIAL (FOR RADIOLOGY& DIALYSIS ONLY) IV (10:45)
[2017-07-24] MEDS: DARBEPOETIN 100 MCG/0.5 ML *DIALYSIS* SYRINGE (J0882) IV (14:58)
[2017-07-24] MEDS: ATORVASTATIN 20 MG TAB PO (20:25)
[2017-07-25] MEDS: VANCOMYCIN ORAL SOL 250MG/5ML ORAL SYRINGE PO ×4 (00:17→17:37)
[2017-07-25 06:00] LABS: HEMATOCRIT 30.7 % (42.0-52.0); HEMOGLOBIN 9.6 g/dl (13.5-17.5); MEAN CORPUSCULAR HEMOGLOBIN 33.2 pg (27.0-33.0); MEAN CORPUSCULAR HGB CONC 31.3 g/dl (32.0-36.5); MEAN CORPUSCULAR VOLUME 106.2 fl (80.0-96.0); PLATELET COUNT, AUTOMATED 160 10^3/uL (150-450); RED BLOOD COUNT 2.89 10^6/uL (4.30-6.10); RED CELL DISTRIBUTION WIDTH 18.2 % (11.5-14.5); WHITE BLOOD COUNT 5.6 10^3/uL (4.0-10.0)
[2017-07-25 06:21] LABS: ANION GAP 6 MEQ/L (8-16); BLOOD UREA NITROGEN 20 MG/DL (7-18); CALCIUM LEVEL 9.3 MG/DL (8.5-10.1); CARBON DIOXIDE LEVEL 28 MEQ/L (21-32); CHLORIDE LEVEL 101 MEQ/L (98-107); CREATININE FOR GFR 2.92 MG/DL (0.70-1.30); GLOMERULAR FILTRATION RATE 23.6 (>56); GLUCOSE, FASTING 86 MG/DL (70-100); MAGNESIUM LEVEL 1.9 MG/DL (1.8-2.4); POTASSIUM SERUM 4.2 MEQ/L (3.5-5.1); SODIUM LEVEL 135 MEQ/L (136-145)
[2017-07-25] MEDS: CALCIUM ACETATE 667 MG GELCAP PO ×3 (08:58→17:37)
[2017-07-25] MEDS: CLOPIDOGREL 75 MG TAB PO (09:00)
[2017-07-25] MEDS: ASPIRIN 81 MG ENTERIC TAB PO (09:00)
[2017-07-25] MEDS: METOPROLOL TART 25 MG TABLET PO ×2 (09:02→20:34)
[2017-07-25] MEDS: ATORVASTATIN 20 MG TAB PO (20:33)
[2017-07-26] MEDS: VANCOMYCIN ORAL SOL 250MG/5ML ORAL SYRINGE PO ×5 (00:23→23:36)
[2017-07-26 05:52] LABS: HEMATOCRIT 31.2 % (42.0-52.0); HEMOGLOBIN 9.8 g/dl (13.5-17.5); MEAN CORPUSCULAR HGB CONC 31.4 g/dl (32.0-36.5); MEAN CORPUSCULAR VOLUME 105.1 fl (80.0-96.0); PLATELET COUNT, AUTOMATED 158 10^3/uL (150-450); RED BLOOD COUNT 2.97 10^6/uL (4.30-6.10); RED CELL DISTRIBUTION WIDTH 17.7 % (11.5-14.5); WHITE BLOOD COUNT 6.3 10^3/uL (4.0-10.0)
[2017-07-26 06:07] LABS: ANION GAP 7 MEQ/L (8-16); CALCIUM LEVEL 9.7 MG/DL (8.5-10.1); CARBON DIOXIDE LEVEL 26 MEQ/L (21-32); CHLORIDE LEVEL 99 MEQ/L (98-107); CREATININE FOR GFR 3.93 MG/DL (0.70-1.30); GLOMERULAR FILTRATION RATE 16.8 (>56); GLUCOSE, FASTING 98 MG/DL (70-100); MAGNESIUM LEVEL 1.9 MG/DL (1.8-2.4); PHOSPHORUS LEVEL 2.3 MG/DL (2.5-4.9); POTASSIUM SERUM 4.4 MEQ/L (3.5-5.1); SODIUM LEVEL 132 MEQ/L (136-145)
[2017-07-26 06:13] LABS: BLOOD UREA NITROGEN 33 MG/DL (7-18)
[2017-07-26] MEDS: CALCIUM ACETATE 667 MG GELCAP PO ×3 (08:36→17:28)
[2017-07-26] MEDS: METOPROLOL TART 25 MG TABLET PO ×2 (08:37→23:09)
[2017-07-26] MEDS: CLOPIDOGREL 75 MG TAB PO (08:37)
[2017-07-26] MEDS: ASPIRIN 81 MG ENTERIC TAB PO (08:38)
[2017-07-26] MEDS ORDERED: traMADol 50 MG TAB PO (11:00)
[2017-07-26] MEDS: raNITIdine SYRUP 150 MG/10 ML UDC PO ×2 (11:24→23:09)
[2017-07-26] MEDS: ATORVASTATIN 20 MG TAB PO (23:09)
[2017-07-26] MEDS: ACETAMINOPHEN TAB 650MG DOSE (2X325MG) PO (23:10)
[2017-07-27 06:30] LABS: HEMATOCRIT 30.5 % (42.0-52.0); HEMOGLOBIN 9.7 g/dl (13.5-17.5); MEAN CORPUSCULAR HEMOGLOBIN 33.1 pg (27.0-33.0); MEAN CORPUSCULAR HGB CONC 31.8 g/dl (32.0-36.5); MEAN CORPUSCULAR VOLUME 104.1 fl (80.0-96.0); PLATELET COUNT, AUTOMATED 171 10^3/uL (150-450); RED BLOOD COUNT 2.93 10^6/uL (4.30-6.10); RED CELL DISTRIBUTION WIDTH 17.2 % (11.5-14.5); WHITE BLOOD COUNT 5.9 10^3/uL (4.0-10.0)
[2017-07-27] MEDS: VANCOMYCIN ORAL SOL 250MG/5ML ORAL SYRINGE PO ×3 (06:42→17:18)
[2017-07-27] MEDS: ASPIRIN 81 MG ENTERIC TAB PO (06:43)
[2017-07-27] MEDS: CALCIUM ACETATE 667 MG GELCAP PO ×3 (06:43→17:18)
[2017-07-27] MEDS: METOPROLOL TART 25 MG TABLET PO ×2 (06:44→22:27)
[2017-07-27] MEDS: raNITIdine SYRUP 150 MG/10 ML UDC PO ×2 (06:44→22:27)
[2017-07-27] MEDS: CLOPIDOGREL 75 MG TAB PO (06:44)
[2017-07-27 07:00] LABS: ANION GAP 7 MEQ/L (8-16); BLOOD UREA NITROGEN 43 MG/DL (7-18); CALCIUM LEVEL 9.9 MG/DL (8.5-10.1); CARBON DIOXIDE LEVEL 25 MEQ/L (21-32); CHLORIDE LEVEL 97 MEQ/L (98-107); GLOMERULAR FILTRATION RATE 14.4 (>56); GLUCOSE, FASTING 86 MG/DL (70-100); MAGNESIUM LEVEL 1.9 MG/DL (1.8-2.4); POTASSIUM SERUM 5.1 MEQ/L (3.5-5.1); SODIUM LEVEL 129 MEQ/L (136-145)
[2017-07-27] MEDS: LIDOCAINE 4% CREAM 5GM (LMX4) TOP (08:08)
[2017-07-27] MEDS: HEPARIN 1,000 UNITS/ML 10ML VIAL (FOR RADIOLOGY& DIALYSIS ONLY) IV (11:00)
[2017-07-27] MEDS: ATORVASTATIN 20 MG TAB PO (22:26)
[2017-07-27] MEDS: diphenhydrAMINE 25 MG CAP PO (22:27)
[2017-07-27] MEDS: ACETAMINOPHEN TAB 650MG DOSE (2X325MG) PO (22:27)
[2017-07-28] MEDS: VANCOMYCIN ORAL SOL 250MG/5ML ORAL SYRINGE PO ×5 (00:44→23:58)
[2017-07-28 06:12] LABS: HEMOGLOBIN 9.8 g/dl (13.5-17.5); MEAN CORPUSCULAR HEMOGLOBIN 33.2 pg (27.0-33.0); MEAN CORPUSCULAR HGB CONC 31.6 g/dl (32.0-36.5); MEAN CORPUSCULAR VOLUME 105.1 fl (80.0-96.0); PLATELET COUNT, AUTOMATED 182 10^3/uL (150-450); RED BLOOD COUNT 2.95 10^6/uL (4.30-6.10); RED CELL DISTRIBUTION WIDTH 17.6 % (11.5-14.5); WHITE BLOOD COUNT 5.5 10^3/uL (4.0-10.0)
[2017-07-28 06:28] LABS: ANION GAP 5 MEQ/L (8-16); BLOOD UREA NITROGEN 22 MG/DL (7-18); CALCIUM LEVEL 9.4 MG/DL (8.5-10.1); CARBON DIOXIDE LEVEL 29 MEQ/L (21-32); CHLORIDE LEVEL 102 MEQ/L (98-107); CREATININE FOR GFR 3.09 MG/DL (0.70-1.30); GLOMERULAR FILTRATION RATE 22.1 (>56); GLUCOSE, FASTING 79 MG/DL (70-100); POTASSIUM SERUM 4.4 MEQ/L (3.5-5.1); SODIUM LEVEL 136 MEQ/L (136-145)
[2017-07-28] MEDS: METOPROLOL TART 25 MG TABLET PO ×2 (07:38→22:24)
[2017-07-28] MEDS: CALCIUM ACETATE 667 MG GELCAP PO ×3 (07:38→17:17)
[2017-07-28] MEDS: CLOPIDOGREL 75 MG TAB PO (07:38)
[2017-07-28] MEDS: raNITIdine SYRUP 150 MG/10 ML UDC PO ×2 (07:38→22:24)
[2017-07-28] MEDS: ASPIRIN 81 MG ENTERIC TAB PO (07:39)
[2017-07-28] MEDS: ATORVASTATIN 20 MG TAB PO (22:24)
[2017-07-28] MEDS: EUCERIN 120GM CREAM TOP (22:25)
[2017-07-28] MEDS: diphenhydrAMINE 25 MG CAP PO (23:57)
[2017-07-29 06:29] LABS: HEMOGLOBIN 9.3 g/dl (13.5-17.5); MEAN CORPUSCULAR HEMOGLOBIN 32.5 pg (27.0-33.0); MEAN CORPUSCULAR VOLUME 104.9 fl (80.0-96.0); PLATELET COUNT, AUTOMATED 173 10^3/uL (150-450); RED BLOOD COUNT 2.86 10^6/uL (4.30-6.10); RED CELL DISTRIBUTION WIDTH 17.3 % (11.5-14.5); WHITE BLOOD COUNT 6.3 10^3/uL (4.0-10.0)
[2017-07-29] MEDS: VANCOMYCIN ORAL SOL 250MG/5ML ORAL SYRINGE PO ×4 (06:29→23:57)
[2017-07-29] MEDS: LACTOBACILLUS ACIDOPHILUS CAP (BACID) PO ×3 (06:30→17:24)
[2017-07-29] MEDS: CALCIUM ACETATE 667 MG GELCAP PO ×3 (06:30→17:24)
[2017-07-29] MEDS: CLOPIDOGREL 75 MG TAB PO (06:31)
[2017-07-29] MEDS: ASPIRIN 81 MG ENTERIC TAB PO (06:31)
[2017-07-29] MEDS: METOPROLOL TART 25 MG TABLET PO ×2 (06:31→20:35)
[2017-07-29] MEDS: EUCERIN 120GM CREAM TOP ×2 (06:32→20:35)
[2017-07-29] MEDS: raNITIdine SYRUP 150 MG/10 ML UDC PO ×2 (06:32→20:35)
[2017-07-29] MEDS: ACETAMINOPHEN TAB 650MG DOSE (2X325MG) PO (06:33)
[2017-07-29 06:58] LABS: ANION GAP 6 MEQ/L (8-16); BLOOD UREA NITROGEN 31 MG/DL (7-18); CALCIUM LEVEL 9.3 MG/DL (8.5-10.1); CARBON DIOXIDE LEVEL 27 MEQ/L (21-32); CHLORIDE LEVEL 100 MEQ/L (98-107); GLOMERULAR FILTRATION RATE 17.4 (>56); GLUCOSE, FASTING 82 MG/DL (70-100); MAGNESIUM LEVEL 1.9 MG/DL (1.8-2.4); SODIUM LEVEL 133 MEQ/L (136-145)
[2017-07-29] MEDS: HEPARIN 1,000 UNITS/ML 10ML VIAL (FOR RADIOLOGY& DIALYSIS ONLY) IV (11:47)
[2017-07-29] MEDS: LIDOCAINE 1% SDV 5 ML VIAL SQ (11:47)
[2017-07-29] MEDS: ATORVASTATIN 20 MG TAB PO (20:35)
[2017-07-30] MEDS: VANCOMYCIN ORAL SOL 250MG/5ML ORAL SYRINGE PO ×2 (06:02→11:33)
[2017-07-30] MEDS: raNITIdine SYRUP 150 MG/10 ML UDC PO (08:14)
[2017-07-30] MEDS: ASPIRIN 81 MG ENTERIC TAB PO (08:14)
[2017-07-30] MEDS: LACTOBACILLUS ACIDOPHILUS CAP (BACID) PO ×2 (08:15→11:32)
[2017-07-30] MEDS: CLOPIDOGREL 75 MG TAB PO (08:15)
[2017-07-30] MEDS: EUCERIN 120GM CREAM TOP (08:15)
[2017-07-30] MEDS: METOPROLOL TART 25 MG TABLET PO (08:15)
[2017-07-30] MEDS: CALCIUM ACETATE 667 MG GELCAP PO ×2 (08:15→11:32)
== END 2017-07-30 12:24 | DRG 371 ==
LOC: M MSPAV 11:11 → M ED 03:37 → M ED INP 10:30 → M MSPAV 12:04
PROC: 5A1D70Z Performance of Urinary Filtration, Intermittent, Less than 6 Hours Per Day (ICD-10-PCS; principal; 2017-07-22)
DX: A04.72 Enterocolitis due to Clostridium difficile, not specified as recurrent (principal); N18.6 End stage renal disease; I50.22 Chronic systolic (congestive) heart failure; E87.1 Hypo-osmolality and hyponatremia; N25.81 Secondary hyperparathyroidism of renal origin; I13.2 Hypertensive heart and chronic kidney disease with heart failure and with stage 5 chronic kidney disease, or end stage renal disease; I25.10 Atherosclerotic heart disease of native coronary artery without angina pectoris; I48.0 Paroxysmal atrial fibrillation; E11.51 Type 2 diabetes mellitus with diabetic peripheral angiopathy without gangrene; D63.1 Anemia in chronic kidney disease; J44.9 Chronic obstructive pulmonary disease, unspecified; K21.9 Gastro-esophageal reflux disease without esophagitis; Z95.828 Presence of other vascular implants and grafts; Z87.891 Personal history of nicotine dependence; Z95.1 Presence of aortocoronary bypass graft; Z99.2 Dependence on renal dialysis; Z79.82 Long term (current) use of aspirin; Z79.02 Long term (current) use of antithrombotics/antiplatelets; Z79.899 Other long term (current) drug therapy; Z91.018 Allergy to other foods; Z91.048 Other nonmedicinal substance allergy status; Z88.8 Allergy status to other drugs, medicaments and biological substances; Z95.5 Presence of coronary angioplasty implant and graft

== ENCOUNTER → 2017-08-04 | Outpatient (REF) ==
[2017-08-04 09:27] LABS: HEMATOCRIT 30.3 % (42.0-52.0); HEMOGLOBIN 9.4 g/dl (13.5-17.5); MEAN CORPUSCULAR HEMOGLOBIN 32.2 pg (27.0-33.0); MEAN CORPUSCULAR VOLUME 103.8 fl (80.0-96.0); PLATELET COUNT, AUTOMATED 186 10^3/uL (150-450); RED BLOOD COUNT 2.92 10^6/uL (4.30-6.10); RED CELL DISTRIBUTION WIDTH 16.4 % (11.5-14.5); WHITE BLOOD COUNT 6.8 10^3/uL (4.0-10.0)
== END ==
DX: I25.10 Atherosclerotic heart disease of native coronary artery without angina pectoris (principal)

== ENCOUNTER → 2017-08-12 | Outpatient (REF) ==
[2017-08-12 13:29] LABS: HEMATOCRIT 32.9 % (42.0-52.0); HEMOGLOBIN 10.4 g/dl (13.5-17.5); MEAN CORPUSCULAR HEMOGLOBIN 32.8 pg (27.0-33.0); MEAN CORPUSCULAR HGB CONC 31.6 g/dl (32.0-36.5); MEAN CORPUSCULAR VOLUME 103.8 fl (80.0-96.0); PLATELET COUNT, AUTOMATED 213 10^3/uL (150-450); RED BLOOD COUNT 3.17 10^6/uL (4.30-6.10); RED CELL DISTRIBUTION WIDTH 15.2 % (11.5-14.5); WHITE BLOOD COUNT 5.1 10^3/uL (4.0-10.0)
[2017-08-12 13:57] LABS: ERYTHROCYTE SEDIMENTATION RATE 63 mm/hr (0-20)
[2017-08-12 13:59] LABS: C REACTIVE PROTEIN QUANTITATIV 6.48 MG/DL (0.00-0.30)
== END ==
DX: M86.9 Osteomyelitis, unspecified (principal)

== ENCOUNTER → 2017-08-18 | Outpatient (REF) ==
[2017-08-18 09:43] LABS: HEMATOCRIT 30.9 % (42.0-52.0); HEMOGLOBIN 9.8 g/dl (13.5-17.5); MEAN CORPUSCULAR HEMOGLOBIN 32.2 pg (27.0-33.0); MEAN CORPUSCULAR HGB CONC 31.7 g/dl (32.0-36.5); MEAN CORPUSCULAR VOLUME 101.6 fl (80.0-96.0); PLATELET COUNT, AUTOMATED 218 10^3/uL (150-450); RED BLOOD COUNT 3.04 10^6/uL (4.30-6.10); WHITE BLOOD COUNT 6.6 10^3/uL (4.0-10.0)
[2017-08-18 10:22] LABS: C REACTIVE PROTEIN QUANTITATIV 7.29 MG/DL (0.00-0.30)
[2017-08-18 10:40] LABS: ERYTHROCYTE SEDIMENTATION RATE 62 mm/hr (0-20)
== END ==
DX: M86.9 Osteomyelitis, unspecified (principal)

== ENCOUNTER → 2017-08-25 | Outpatient (REF) | DX: M86.171 Other acute osteomyelitis, right ankle and foot (principal) ==

== ENCOUNTER 2017-08-28 20:54 | Emergency (ER) | payer MEDICARE, MEDICAID ==
[2017-08-28] MEDS: PERCOCET 5MG/325MG TAB PO (23:01)
[2017-08-29] MEDS: OXYCODONE/APAP 5MG/325MG(BULK FOR ED) 1 TABLET PO (00:49)
== END 2017-08-29 01:16 | disposition home or self-care (01) ==
LOC: M ED 08-29 01:16
DX: M79.621 Pain in right upper arm (principal); I25.10 Atherosclerotic heart disease of native coronary artery without angina pectoris; N18.6 End stage renal disease; K21.9 Gastro-esophageal reflux disease without esophagitis; Z72.0 Tobacco use; Z79.82 Long term (current) use of aspirin; Z79.84 Long term (current) use of oral hypoglycemic drugs; Z79.899 Other long term (current) drug therapy; Z91.89 Other specified personal risk factors, not elsewhere classified; Z91.018 Allergy to other foods; Z88.8 Allergy status to other drugs, medicaments and biological substances
CPT/HCPCS: 73030

== ENCOUNTER 2017-09-10 04:12 | Emergency (ER) | payer MEDICARE, MEDICAID ==
[2017-09-10 05:31] LABS: BASO # 0.1 10^3/uL (0.0-0.2); BASO % 1.4 % (0.0-1.0); EOS # 0.8 10^3/uL (0.0-0.50); EOS % 14.3 % (0.0-3.0); HEMATOCRIT 30.2 % (42.0-52.0); IMMATURE GRANULOCYTE % 0.5 % (0-3.0); LYMPH # 1.1 10^3/uL (1.5-4.5); MEAN CORPUSCULAR HEMOGLOBIN 31.9 pg (27.0-33.0); MEAN CORPUSCULAR HGB CONC 33.1 g/dl (32.0-36.5); MEAN CORPUSCULAR VOLUME 96.5 fl (80.0-96.0); MONO # 0.8 10^3/uL (0.0-0.8); MONO % 14.1 % (0.0-5.0); NEUTROPHILS # 2.8 10^3/uL (1.8-7.7); NEUTROPHILS % 49.7 % (36.0-66.0); PLATELET COUNT, AUTOMATED 138 10^3/uL (150-450); RED BLOOD COUNT 3.13 10^6/uL (4.30-6.10); RED CELL DISTRIBUTION WIDTH 14.4 % (11.5-14.5); WHITE BLOOD COUNT 5.6 10^3/uL (4.0-10.0)
[2017-09-10] MEDS: methylPREDNISolone INJ 125 MG/2 ML VIAL (J2930) IV (05:53)
[2017-09-10] MEDS: IPRATROPIUM 0.5MG/ALBUTEROL 2.5MG INH SOL UD 3ML (DUONEB)(J7620) NEB ×3 (05:54)
[2017-09-10 05:56] LABS: INR 1.16
[2017-09-10 05:57] LABS: PARTIAL THROMBOPLASTIN TIME 42.1 SECONDS (25.4-37.6)
[2017-09-10 05:58] LABS: ALBUMIN 2.8 GM/DL (3.2-5.2); ALBUMIN/GLOBULIN RATIO 0.67 (1.00-1.93); ALKALINE PHOSPHATASE 490 U/L (45-117); ALT/SGPT 17 U/L (12-78); ANION GAP 11 MEQ/L (8-16); AST/SGOT 36 U/L (7-37); BLOOD UREA NITROGEN 35 MG/DL (7-18); CALCIUM LEVEL 8.2 MG/DL (8.5-10.1); CARBON DIOXIDE LEVEL 26 MEQ/L (21-32); CHLORIDE LEVEL 91 MEQ/L (98-107); CREATININE FOR GFR 5.51 MG/DL (0.70-1.30); GLOMERULAR FILTRATION RATE 11.4 (>56); GLUCOSE, FASTING 131 MG/DL (70-100); POTASSIUM SERUM 4.1 MEQ/L (3.5-5.1); SODIUM LEVEL 128 MEQ/L (136-145)
[2017-09-10 06:37] LABS: CK-MB VALUE MASS 2.4 NG/ML (<3.6); CPK CREATINE PHOSPHOKINASE 84 U/L (39-308); MB/CK RELATIVE INDEX 2.85 (< OR =4); TROPONIN I 0.02 NG/ML (< 0.10)
[2017-09-10 07:33] LABS: NT-PRO BNP > 175000 PG/ML (<125)
== END 2017-09-10 08:24 | disposition home or self-care (01) ==
LOC: M ED 04:12
DX: J44.9 Chronic obstructive pulmonary disease, unspecified (principal); N18.6 End stage renal disease; Z99.2 Dependence on renal dialysis; E11.9 Type 2 diabetes mellitus without complications; I11.0 Hypertensive heart disease with heart failure; I50.9 Heart failure, unspecified; I48.91 Unspecified atrial fibrillation; D64.9 Anemia, unspecified; Z79.899 Other long term (current) drug therapy; Z79.82 Long term (current) use of aspirin; Z79.01 Long term (current) use of anticoagulants; Z88.8 Allergy status to other drugs, medicaments and biological substances; Z91.018 Allergy to other foods; Z91.048 Other nonmedicinal substance allergy status; Z87.891 Personal history of nicotine dependence
CPT/HCPCS: J2930

== ENCOUNTER 2017-09-19 09:54 | Inpatient (IN) | payer MEDICARE, MEDICAID ==
[2017-09-19 10:28] LABS: BEDSIDE GLUCOSE 106 MG/DL (70-105)
[2017-09-19] MEDS: IPRATROPIUM 0.5MG/ALBUTEROL 2.5MG INH SOL UD 3ML (DUONEB)(J7620) NEB (10:32)
[2017-09-19 10:35] LABS: ABG BASE EXCESS 3.3 (-2.0-2.0); ABG O2 SATURATION 99.7 % (95.0-99.0); ABG PARTIAL PRESSURE CO2 37.8 mmHg (35.0-45.0); ABG PARTIAL PRESSURE O2 231.6 mmHg (75.0-100.0); ABG STANDARD HCO3 27.4 MEQ/L (22.0-26.0); ABG TOTAL CO2 28.1 MEQ/L (22.0-29.0); ABG pH (ARTERIAL) 7.471 UNITS (7.350-7.450)
[2017-09-19] MEDS: ACETAMINOPHEN 650 MG SUPP PR (10:40)
[2017-09-19 10:50] LABS: BASO # 0.1 10^3/uL (0.0-0.2); BASO % 0.4 % (0.0-1.0); EOS # 0.1 10^3/uL (0.0-0.50); EOS % 0.4 % (0.0-3.0); HEMATOCRIT 35.4 % (42.0-52.0); HEMOGLOBIN 11.7 g/dl (13.5-17.5); IMMATURE GRANULOCYTE % 0.4 % (0-3.0); LYMPH # 0.5 10^3/uL (1.5-4.5); LYMPH % 4.3 % (24.0-44.0); MEAN CORPUSCULAR HEMOGLOBIN 31.5 pg (27.0-33.0); MEAN CORPUSCULAR HGB CONC 33.1 g/dl (32.0-36.5); MEAN CORPUSCULAR VOLUME 95.2 fl (80.0-96.0); MONO # 1.4 10^3/uL (0.0-0.8); MONO % 10.7 % (0.0-5.0); NEUTROPHILS # 10.6 10^3/uL (1.8-7.7); NEUTROPHILS % 83.8 % (36.0-66.0); PLATELET COUNT, AUTOMATED 190 10^3/uL (150-450); RED BLOOD COUNT 3.72 10^6/uL (4.30-6.10); RED CELL DISTRIBUTION WIDTH 14.6 % (11.5-14.5); WHITE BLOOD COUNT 12.7 10^3/uL (4.0-10.0)
[2017-09-19] MEDS: NS 500 ML IV (10:50)
[2017-09-19 11:01] LABS: INR 1.31; PARTIAL THROMBOPLASTIN TIME 35.7 SECONDS (25.4-37.6); PROTHROMBIN TIME 16.5 SECONDS (12.1-14.4)
[2017-09-19 11:08] LABS: AMMONIA 35 uMOL/L (<32)
[2017-09-19 11:13] LABS: LACTIC ACID SEPSIS PROTOCOL 1.9 MMOL/L (0.4-2.0)
[2017-09-19 11:14] LABS: ALBUMIN 2.9 GM/DL (3.2-5.2); ALBUMIN/GLOBULIN RATIO 0.71 (1.00-1.93); ALKALINE PHOSPHATASE 510 U/L (45-117); ALT/SGPT 18 U/L (12-78); ANION GAP 10 MEQ/L (8-16); AST/SGOT 30 U/L (7-37); BILIRUBIN,DIRECT 1.2 MG/DL (0.0-0.2); BILIRUBIN,TOTAL 1.7 MG/DL (0.2-1.0); BLOOD UREA NITROGEN 25 MG/DL (7-18); CARBON DIOXIDE LEVEL 27 MEQ/L (21-32); CHLORIDE LEVEL 98 MEQ/L (98-107); CPK CREATINE PHOSPHOKINASE 51 U/L (39-308); CREATININE FOR GFR 3.81 MG/DL (0.70-1.30); ETHYL ALCOHOL (ETHANOL) < 0.003 % (0.000-0.010); GLOMERULAR FILTRATION RATE 17.4 (>56); GLUCOSE, FASTING 113 MG/DL (70-100); POTASSIUM SERUM 3.7 MEQ/L (3.5-5.1); SALICYLATE LEVEL < 1.7 MG/DL (5.0-30.0); SODIUM LEVEL 135 MEQ/L (136-145); TROPONIN I 1.34 NG/ML (< 0.10)
[2017-09-19 11:19] LABS: CK-MB VALUE MASS 1.3 NG/ML (<3.6); MB/CK RELATIVE INDEX 2.54 (< OR =4)
[2017-09-19 11:21] LABS: ACETAMINOPHEN LEVEL < 2.0 UG/ML (10.0-30.0)
[2017-09-19 11:46] LABS: AMORPHOUS SEDIMENT RFX SMALL (NEGATIVE); KETONE, URINE AUTO RFX NEGATIVE (NEGATIVE); LEUKOCYTE ESTERASE UR AUTO RFX NEGATIVE (NEGATIVE); MUCUS, URINE RFX SMALL (NEGATIVE); NITRITE, URINE AUTO RFX NEGATIVE (NEGATIVE); RBC, URINE AUTO RFX 7 /HPF (0-3); SPECIFIC GRAVITY UR AUTO RFX 1.014 (1.002-1.035); SQUAM EPITHELIAL CELL UR AURFX 0 /HPF (0-6); WBC, URINE AUTO RFX 10 /HPF (0-3)
[2017-09-19 12:02] LABS: AMPHETAMINES LEVEL URINE NEGATIVE (NEGATIVE); BARBITURATES URINE NEGATIVE (NEGATIVE); BENZODIAZEPINES URINE NEGATIVE (NEGATIVE); CANNABINOIDS URINE NEGATIVE (NEGATIVE); COCAINE METABOLITE URINE NEGATIVE (NEGATIVE); METHADONE URINE NEGATIVE (NEGATIVE); OPIATES URINE NEGATIVE (NEGATIVE); PHENCYCLIDINE URINE NEGATIVE (NEGATIVE)
[2017-09-19] MEDS: NS IV (13:00)
[2017-09-19] MEDS: DILUENT IV (13:00)
[2017-09-19 13:04] LABS: CSF RBC < 2 10^3/uL (<2); CSF TUBE# GLU TUBE 2; CSF TUBE# TP TUBE 2; CSF WBC 4 /uL (0-10); GLUCOSE CSF 68 MG/DL (40-75); TOTAL PROTEIN,CSF 69.9 MG/DL (15-45)
[2017-09-19 13:05] LABS: APPEARANCE, CSF CLEAR (CLEAR); COLOR, CSF COLORLESS (COLORLESS); CSF RBC < 2 10^3/uL (<2); CSF TUBE# CELL CNT TUBE 1
[2017-09-19 13:06] LABS: APPEARANCE, CSF CLEAR (CLEAR); COLOR, CSF COLORLESS (COLORLESS); CSF DIFF IF INDICATED? NO (NO); CSF TUBE# CELL CNT TUBE 4; CSF WBC 5 /uL (0-10)
[2017-09-19] MEDS: CEFEPIME HCL 2 GM in D5W MINI-BAG PLUS 50 ML IV (13:40)
[2017-09-19] MEDS ORDERED: ACETAMINOPHEN 650 MG SUPP PR (15:45)
[2017-09-19] MEDS ORDERED: IPRATROPIUM 0.5MG/ALBUTEROL 2.5MG INH SOL UD 3ML (DUONEB)(J7620) NEB (15:45)
[2017-09-19] MEDS ORDERED: ALBUTEROL 90 MCG/ACT 8GM HFA INHALER INH (16:00)
[2017-09-19] MEDS ORDERED: GLUCOSE 4 GM CHEW TABLET PO (16:00)
[2017-09-19] MEDS ORDERED: GLUCAGON FOR INJ 1 MG VIAL (J1610) SC (16:00)
[2017-09-19] MEDS: ASPIRIN 81 MG ENTERIC TAB PO (16:20)
[2017-09-19] MEDS: NS 1,000 ML IV (16:20)
[2017-09-19] MEDS: VANCOMYCIN HCL 1,000 MG, VIAL MATE ADAPTER 1 EACH in D5W 250 ML IV ×2 (16:20→20:14)
[2017-09-19] MEDS: CLOPIDOGREL 75 MG TAB PO (16:26)
[2017-09-19 16:46] LABS: FREE T4 1.17 NG/DL (0.76-1.46)
[2017-09-19 17:04] LABS: TROPONIN I 4.77 NG/ML (< 0.10)
[2017-09-19] MEDS: MEROPENEM INJ 500 MG in APPROPRIATE DILUENT 1 EA IV (17:48)
[2017-09-19] MEDS: HumaLOG INSULIN (NovoLOG) PER UNIT SC ×2 (17:51→22:00)
[2017-09-19 17:54] LABS: BEDSIDE GLUCOSE 136 MG/DL (70-105)
[2017-09-19] MEDS: **VANCO AFTER HD** MISC XX (19:00)
[2017-09-19] MEDS: ENOXAPARIN 30 MG/0.3 ML SYR (J1650) SC (19:00)
[2017-09-19] MEDS: METOPROLOL TART 25 MG TABLET PO (20:14)
[2017-09-19] MEDS ORDERED: PANTOPRAZOLE 40MG INJ (PROTONIX) (C9113) IV (21:00)
[2017-09-19] MEDS ORDERED: METOPROLOL TART 25 MG TABLET PO (21:00)
[2017-09-19 22:06] LABS: BEDSIDE GLUCOSE 100 MG/DL (70-105)
[2017-09-19 22:29] LABS: TROPONIN I 4.73 NG/ML (< 0.10)
[2017-09-20] MEDS: NS 1,000 ML IV (03:00)
[2017-09-20 04:47] LABS: BASO # 0.1 10^3/uL (0.0-0.2); BASO % 0.4 % (0.0-1.0); EOS % 0.4 % (0.0-3.0); HEMATOCRIT 35.8 % (42.0-52.0); HEMOGLOBIN 11.7 g/dl (13.5-17.5); IMMATURE GRANULOCYTE % 0.4 % (0-3.0); LYMPH # 0.6 10^3/uL (1.5-4.5); LYMPH % 5.5 % (24.0-44.0); MEAN CORPUSCULAR HEMOGLOBIN 31.1 pg (27.0-33.0); MEAN CORPUSCULAR HGB CONC 32.7 g/dl (32.0-36.5); MEAN CORPUSCULAR VOLUME 95.2 fl (80.0-96.0); MONO # 0.7 10^3/uL (0.0-0.8); MONO % 6.4 % (0.0-5.0); NEUTROPHILS # 9.8 10^3/uL (1.8-7.7); NEUTROPHILS % 86.9 % (36.0-66.0); PLATELET COUNT, AUTOMATED 136 10^3/uL (150-450); RED BLOOD COUNT 3.76 10^6/uL (4.30-6.10); RED CELL DISTRIBUTION WIDTH 14.9 % (11.5-14.5); WHITE BLOOD COUNT 11.2 10^3/uL (4.0-10.0)
[2017-09-20 05:08] LABS: ALBUMIN 2.7 GM/DL (3.2-5.2); ALKALINE PHOSPHATASE 393 U/L (45-117); ALT/SGPT 16 U/L (12-78); ANION GAP 10 MEQ/L (8-16); AST/SGOT 31 U/L (7-37); BILIRUBIN,TOTAL 1.4 MG/DL (0.2-1.0); BLOOD UREA NITROGEN 33 MG/DL (7-18); CALCIUM LEVEL 8.1 MG/DL (8.5-10.1); CARBON DIOXIDE LEVEL 24 MEQ/L (21-32); CHLORIDE LEVEL 99 MEQ/L (98-107); CREATININE FOR GFR 4.35 MG/DL (0.70-1.30); GLOMERULAR FILTRATION RATE 14.9 (>56); GLUCOSE, FASTING 86 MG/DL (70-100); PHOSPHORUS LEVEL 2.8 MG/DL (2.5-4.9); POTASSIUM SERUM 4.1 MEQ/L (3.5-5.1); SODIUM LEVEL 133 MEQ/L (136-145); TOTAL PROTEIN 7.2 GM/DL (6.4-8.2)
[2017-09-20] MEDS: METOPROLOL TART 25 MG TABLET PO ×5 (05:16→23:27)
[2017-09-20] MEDS: VANCOMYCIN ORAL SOL 250MG/5ML ORAL SYRINGE PO (05:17)
[2017-09-20] MEDS: HumaLOG INSULIN (NovoLOG) PER UNIT SC ×4 (07:30→20:08)
[2017-09-20 08:15] LABS: BEDSIDE GLUCOSE 86 MG/DL (70-105)
[2017-09-20 09:29] LABS: CPK CREATINE PHOSPHOKINASE 87 U/L (39-308); MB/CK RELATIVE INDEX 3.44 (< OR =4)
[2017-09-20] MEDS: ASPIRIN 81 MG ENTERIC TAB PO (09:32)
[2017-09-20] MEDS: ENOXAPARIN 30 MG/0.3 ML SYR (J1650) SC (09:32)
[2017-09-20] MEDS: CLOPIDOGREL 75 MG TAB PO (09:32)
[2017-09-20 09:33] LABS: TROPONIN I 4.72 NG/ML (< 0.10)
[2017-09-20] MEDS: PANTOPRAZOLE 40MG INJ (PROTONIX) (C9113) IV (09:33)
[2017-09-20] MEDS ORDERED: VANCOMYCIN ORAL SOL 250MG/5ML ORAL SYRINGE PO (12:00)
[2017-09-20 12:16] LABS: BEDSIDE GLUCOSE 144 MG/DL (70-105)
[2017-09-20] MEDS: IPRATROPIUM 0.5MG/ALBUTEROL 2.5MG INH SOL UD 3ML (DUONEB)(J7620) NEB ×2 (13:22→19:17)
[2017-09-20] MEDS: **VANCO AFTER HD** MISC XX (16:00)
[2017-09-20 16:26] LABS: BEDSIDE GLUCOSE 178 MG/DL (70-105)
[2017-09-20 17:27] LABS: CK-MB VALUE MASS 4.7 NG/ML (<3.6); CPK CREATINE PHOSPHOKINASE 121 U/L (39-308); MB/CK RELATIVE INDEX 3.88 (< OR =4)
[2017-09-20 17:29] LABS: TROPONIN I 5.38 NG/ML (< 0.10)
[2017-09-20] MEDS: FIDAXOMICIN 200 MG TAB (DIFICID) PO (20:07)
[2017-09-20 20:10] LABS: BEDSIDE GLUCOSE 163 MG/DL (70-105)
[2017-09-21 00:46] LABS: CK-MB VALUE MASS 4.7 NG/ML (<3.6); CPK CREATINE PHOSPHOKINASE 94 U/L (39-308)
[2017-09-21] MEDS: IPRATROPIUM 0.5MG/ALBUTEROL 2.5MG INH SOL UD 3ML (DUONEB)(J7620) NEB ×4 (02:24→19:26)
[2017-09-21 04:55] LABS: VANCOMYCIN RANDOM 18.3 UG/ML
[2017-09-21] MEDS: METOPROLOL TART 25 MG TABLET PO ×4 (05:09→22:41)
[2017-09-21 07:57] LABS: BEDSIDE GLUCOSE 111 MG/DL (70-105)
[2017-09-21] MEDS: HumaLOG INSULIN (NovoLOG) PER UNIT SC ×4 (08:00→21:00)
[2017-09-21] MEDS ORDERED: ISOVUE-370 76% 100ML VIAL (Q9967) As Ordered (08:05)
[2017-09-21 08:19] LABS: BASO # 0.1 10^3/uL (0.0-0.2); BASO % 0.7 % (0.0-1.0); EOS # 0.1 10^3/uL (0.0-0.50); EOS % 1.2 % (0.0-3.0); HEMATOCRIT 32.5 % (42.0-52.0); HEMOGLOBIN 10.7 g/dl (13.5-17.5); IMMATURE GRANULOCYTE % 0.2 % (0-3.0); LYMPH # 0.7 10^3/uL (1.5-4.5); LYMPH % 7.9 % (24.0-44.0); MEAN CORPUSCULAR HEMOGLOBIN 31.8 pg (27.0-33.0); MEAN CORPUSCULAR HGB CONC 32.9 g/dl (32.0-36.5); MEAN CORPUSCULAR VOLUME 96.4 fl (80.0-96.0); MONO # 0.7 10^3/uL (0.0-0.8); NEUTROPHILS # 6.7 10^3/uL (1.8-7.7); PLATELET COUNT, AUTOMATED 118 10^3/uL (150-450); RED BLOOD COUNT 3.37 10^6/uL (4.30-6.10); WHITE BLOOD COUNT 8.2 10^3/uL (4.0-10.0)
[2017-09-21 08:22] LABS: BLOOD UREA NITROGEN 45 MG/DL (7-18); CREATININE FOR GFR 5.11 MG/DL (0.70-1.30); GLOMERULAR FILTRATION RATE 12.4 (>56); GLUCOSE, FASTING 127 MG/DL (70-100)
[2017-09-21 08:23] LABS: ANION GAP 12 MEQ/L (8-16); CALCIUM LEVEL 8.2 MG/DL (8.5-10.1); CARBON DIOXIDE LEVEL 23 MEQ/L (21-32); CHLORIDE LEVEL 97 MEQ/L (98-107); PHOSPHORUS LEVEL 3.4 MG/DL (2.5-4.9); POTASSIUM SERUM 3.8 MEQ/L (3.5-5.1); SODIUM LEVEL 132 MEQ/L (136-145)
[2017-09-21 08:27] LABS: ALKALINE PHOSPHATASE 315 U/L (45-117); ALT/SGPT 18 U/L (12-78); AST/SGOT 30 U/L (7-37)
[2017-09-21 08:28] LABS: TOTAL PROTEIN 6.8 GM/DL (6.4-8.2)
[2017-09-21] MEDS: FIDAXOMICIN 200 MG TAB (DIFICID) PO ×2 (08:31→21:51)
[2017-09-21] MEDS: ASPIRIN 81 MG ENTERIC TAB PO (08:32)
[2017-09-21] MEDS: PANTOPRAZOLE 40MG TAB (PROTONIX) PO (08:32)
[2017-09-21] MEDS: CLOPIDOGREL 75 MG TAB PO (08:32)
[2017-09-21] MEDS: ENOXAPARIN 30 MG/0.3 ML SYR (J1650) SC (08:32)
[2017-09-21 08:35] LABS: ALBUMIN 2.6 GM/DL (3.2-5.2); ALBUMIN/GLOBULIN RATIO 0.62 (1.00-1.93)
[2017-09-21 11:46] LABS: BEDSIDE GLUCOSE 130 MG/DL (70-105)
[2017-09-21] MEDS: HEPARIN 1,000 UNITS/ML 10ML VIAL (FOR RADIOLOGY& DIALYSIS ONLY) IV (14:00)
[2017-09-21] MEDS: **VANCO AFTER HD** MISC XX (16:00)
[2017-09-21] MEDS: VANCOMYCIN HCL 1,000 MG, VIAL MATE ADAPTER 1 EACH in D5W 250 ML IV (16:56)
[2017-09-21 17:11] LABS: BEDSIDE GLUCOSE 136 MG/DL (70-105)
[2017-09-21 21:47] LABS: BEDSIDE GLUCOSE 167 MG/DL (70-105)
[2017-09-22] MEDS: DIGOXIN INJ 0.5 MG/2 ML AMP (J1160) IV ×4 (00:09→20:18)
[2017-09-22] MEDS: ACETAMINOPHEN TAB 650MG DOSE (2X325MG) PO (01:57)
[2017-09-22] MEDS: IPRATROPIUM 0.5MG/ALBUTEROL 2.5MG INH SOL UD 3ML (DUONEB)(J7620) NEB ×4 (02:14→19:35)
[2017-09-22 04:45] LABS: HEMATOCRIT 32.7 % (42.0-52.0); HEMOGLOBIN 10.5 g/dl (13.5-17.5); MEAN CORPUSCULAR HEMOGLOBIN 31.2 pg (27.0-33.0); MEAN CORPUSCULAR HGB CONC 32.1 g/dl (32.0-36.5); PLATELET COUNT, AUTOMATED 104 10^3/uL (150-450); RED BLOOD COUNT 3.37 10^6/uL (4.30-6.10); RED CELL DISTRIBUTION WIDTH 15.2 % (11.5-14.5); WHITE BLOOD COUNT 6.2 10^3/uL (4.0-10.0)
[2017-09-22] MEDS: METOPROLOL TART 25 MG TABLET PO ×4 (04:50→23:53)
[2017-09-22 05:00] LABS: ANION GAP 9 MEQ/L (8-16); BLOOD UREA NITROGEN 28 MG/DL (7-18); CALCIUM LEVEL 8.3 MG/DL (8.5-10.1); CARBON DIOXIDE LEVEL 27 MEQ/L (21-32); CHLORIDE LEVEL 100 MEQ/L (98-107); CREATININE FOR GFR 3.75 MG/DL (0.70-1.30); GLOMERULAR FILTRATION RATE 17.7 (>56); GLUCOSE, FASTING 159 MG/DL (70-100); POTASSIUM SERUM 4.1 MEQ/L (3.5-5.1); SODIUM LEVEL 136 MEQ/L (136-145)
[2017-09-22] MEDS: ASPIRIN 81 MG ENTERIC TAB PO (08:24)
[2017-09-22] MEDS: ENOXAPARIN 30 MG/0.3 ML SYR (J1650) SC (08:24)
[2017-09-22] MEDS: PANTOPRAZOLE 40MG TAB (PROTONIX) PO (08:24)
[2017-09-22] MEDS: HumaLOG INSULIN (NovoLOG) PER UNIT SC ×4 (08:24→21:00)
[2017-09-22] MEDS: FIDAXOMICIN 200 MG TAB (DIFICID) PO ×2 (08:24→20:18)
[2017-09-22] MEDS: CLOPIDOGREL 75 MG TAB PO (08:24)
[2017-09-22 12:26] LABS: BEDSIDE GLUCOSE 67 MG/DL (70-105)
[2017-09-22 12:29] LABS: BEDSIDE GLUCOSE 72 MG/DL (70-105)
[2017-09-22] MEDS ORDERED: AMIODARONE HCL 150 MG/100 ML PREMIXED BAG (NEXTERONE) As Ordered (13:41)
[2017-09-22] MEDS ORDERED: DIGOXIN INJ 0.5 MG/2 ML AMP (J1160) As Ordered (13:41)
[2017-09-22] MEDS: AMIODARONE HCL 150 MG in APPROPRIATE DILUENT 1 EA IV (13:47)
[2017-09-22] MEDS: **VANCO AFTER HD** MISC XX (16:00)
[2017-09-22 16:25] LABS: BEDSIDE GLUCOSE 119 MG/DL (70-105)
[2017-09-22 18:19] LABS: BEDSIDE GLUCOSE 104 MG/DL (70-105)
[2017-09-22] MEDS: EUCERIN 120GM CREAM EXT (18:19)
[2017-09-22 20:14] LABS: BEDSIDE GLUCOSE 113 MG/DL (70-105)
[2017-09-23] MEDS: IPRATROPIUM 0.5MG/ALBUTEROL 2.5MG INH SOL UD 3ML (DUONEB)(J7620) NEB ×4 (00:57→19:28)
[2017-09-23 05:03] LABS: HEMOGLOBIN 10.4 g/dl (13.5-17.5); MEAN CORPUSCULAR HEMOGLOBIN 31.4 pg (27.0-33.0); MEAN CORPUSCULAR HGB CONC 33.5 g/dl (32.0-36.5); MEAN CORPUSCULAR VOLUME 93.7 fl (80.0-96.0); RED BLOOD COUNT 3.31 10^6/uL (4.30-6.10); RED CELL DISTRIBUTION WIDTH 15.3 % (11.5-14.5); WHITE BLOOD COUNT 7.2 10^3/uL (4.0-10.0)
[2017-09-23 05:17] LABS: ANION GAP 10 MEQ/L (8-16); BLOOD UREA NITROGEN 36 MG/DL (7-18); CALCIUM LEVEL 8.5 MG/DL (8.5-10.1); CARBON DIOXIDE LEVEL 25 MEQ/L (21-32); CHLORIDE LEVEL 96 MEQ/L (98-107); CREATININE FOR GFR 4.73 MG/DL (0.70-1.30); GLOMERULAR FILTRATION RATE 13.6 (>56); GLUCOSE, FASTING 99 MG/DL (70-100); POTASSIUM SERUM 4.7 MEQ/L (3.5-5.1); SODIUM LEVEL 131 MEQ/L (136-145); VANCOMYCIN RANDOM 22.5 UG/ML
[2017-09-23 05:39] LABS: PLATELET COUNT, AUTOMATED 89 10^3/uL (150-450)
[2017-09-23] MEDS: METOPROLOL TART 25 MG TABLET PO ×4 (05:57→23:46)
[2017-09-23] MEDS: HumaLOG INSULIN (NovoLOG) PER UNIT SC ×4 (07:30→20:53)
[2017-09-23] MEDS: ASPIRIN 81 MG ENTERIC TAB PO (09:04)
[2017-09-23] MEDS: EUCERIN 120GM CREAM EXT (09:04)
[2017-09-23] MEDS: PANTOPRAZOLE 40MG TAB (PROTONIX) PO (09:04)
[2017-09-23] MEDS: ENOXAPARIN 30 MG/0.3 ML SYR (J1650) SC (09:04)
[2017-09-23] MEDS: CLOPIDOGREL 75 MG TAB PO (09:04)
[2017-09-23] MEDS: FIDAXOMICIN 200 MG TAB (DIFICID) PO ×2 (09:04→21:57)
[2017-09-23 11:43] LABS: BEDSIDE GLUCOSE 196 MG/DL (70-105)
[2017-09-23] MEDS: LIDOCAINE 1% SDV 5 ML VIAL SQ (15:39)
[2017-09-23] MEDS: **VANCO AFTER HD** MISC XX (16:00)
[2017-09-23 16:44] LABS: BEDSIDE GLUCOSE 122 MG/DL (70-105)
[2017-09-23] MEDS: VANCOMYCIN HCL 1,000 MG, VIAL MATE ADAPTER 1 EACH in D5W 250 ML IV (17:07)
[2017-09-23 20:42] LABS: BEDSIDE GLUCOSE 84 MG/DL (70-105)
[2017-09-23] MEDS: ACETAMINOPHEN TAB 650MG DOSE (2X325MG) PO (23:46)
[2017-09-24] MEDS: IPRATROPIUM 0.5MG/ALBUTEROL 2.5MG INH SOL UD 3ML (DUONEB)(J7620) NEB ×4 (03:04→20:00)
[2017-09-24 05:41] LABS: HEMATOCRIT 31.2 % (42.0-52.0); HEMOGLOBIN 10.5 g/dl (13.5-17.5); MEAN CORPUSCULAR HEMOGLOBIN 31.3 pg (27.0-33.0); MEAN CORPUSCULAR HGB CONC 33.7 g/dl (32.0-36.5); MEAN CORPUSCULAR VOLUME 93.1 fl (80.0-96.0); RED BLOOD COUNT 3.35 10^6/uL (4.30-6.10); RED CELL DISTRIBUTION WIDTH 15.3 % (11.5-14.5); WHITE BLOOD COUNT 6.8 10^3/uL (4.0-10.0)
[2017-09-24 05:44] LABS: PLATELET COUNT, AUTOMATED 85 10^3/uL (150-450)
[2017-09-24 05:45] LABS: IMMATURE PLATELET FRACTION % 7.5 % (0.0-10.9)
[2017-09-24] MEDS: METOPROLOL TART 25 MG TABLET PO ×3 (05:49→17:46)
[2017-09-24 05:57] LABS: ANION GAP 9 MEQ/L (8-16); BLOOD UREA NITROGEN 26 MG/DL (7-18); CALCIUM LEVEL 8.9 MG/DL (8.5-10.1); CARBON DIOXIDE LEVEL 27 MEQ/L (21-32); CHLORIDE LEVEL 100 MEQ/L (98-107); CREATININE FOR GFR 3.58 MG/DL (0.70-1.30); GLOMERULAR FILTRATION RATE 18.7 (>56); GLUCOSE, FASTING 78 MG/DL (70-100); POTASSIUM SERUM 4.3 MEQ/L (3.5-5.1); SODIUM LEVEL 136 MEQ/L (136-145)
[2017-09-24] MEDS: HumaLOG INSULIN (NovoLOG) PER UNIT SC ×4 (07:24→20:19)
[2017-09-24] MEDS: PANTOPRAZOLE 40MG TAB (PROTONIX) PO (08:53)
[2017-09-24] MEDS: FIDAXOMICIN 200 MG TAB (DIFICID) PO ×2 (08:53→20:20)
[2017-09-24] MEDS: CLOPIDOGREL 75 MG TAB PO (08:53)
[2017-09-24] MEDS: ASPIRIN 81 MG ENTERIC TAB PO (08:53)
[2017-09-24] MEDS: EUCERIN 120GM CREAM EXT (08:54)
[2017-09-24] MEDS: ENOXAPARIN 30 MG/0.3 ML SYR (J1650) SC (08:54)
[2017-09-24 11:36] LABS: BEDSIDE GLUCOSE 95 MG/DL (70-105)
[2017-09-24] MEDS: **VANCO AFTER HD** MISC XX (13:00)
[2017-09-24 17:42] LABS: BEDSIDE GLUCOSE 89 MG/DL (70-105)
[2017-09-24 20:24] LABS: BEDSIDE GLUCOSE 111 MG/DL (70-105)
[2017-09-25] MEDS: ACETAMINOPHEN TAB 650MG DOSE (2X325MG) PO ×2 (00:58→16:25)
[2017-09-25] MEDS: METOPROLOL TART 25 MG TABLET PO ×4 (00:58→18:43)
[2017-09-25] MEDS: IPRATROPIUM 0.5MG/ALBUTEROL 2.5MG INH SOL UD 3ML (DUONEB)(J7620) NEB ×4 (02:00→20:00)
[2017-09-25 05:52] LABS: HEMATOCRIT 32.3 % (42.0-52.0); HEMOGLOBIN 10.9 g/dl (13.5-17.5); MEAN CORPUSCULAR HEMOGLOBIN 31.8 pg (27.0-33.0); MEAN CORPUSCULAR HGB CONC 33.7 g/dl (32.0-36.5); MEAN CORPUSCULAR VOLUME 94.2 fl (80.0-96.0); RED BLOOD COUNT 3.43 10^6/uL (4.30-6.10); RED CELL DISTRIBUTION WIDTH 15.3 % (11.5-14.5); WHITE BLOOD COUNT 6.5 10^3/uL (4.0-10.0)
[2017-09-25 05:59] LABS: PLATELET COUNT, AUTOMATED 97 10^3/uL (150-450)
[2017-09-25 06:14] LABS: ANION GAP 9 MEQ/L (8-16); BLOOD UREA NITROGEN 33 MG/DL (7-18); CALCIUM LEVEL 8.2 MG/DL (8.5-10.1); CARBON DIOXIDE LEVEL 27 MEQ/L (21-32); CHLORIDE LEVEL 97 MEQ/L (98-107); CREATININE FOR GFR 4.44 MG/DL (0.70-1.30); GLOMERULAR FILTRATION RATE 14.6 (>56); GLUCOSE, FASTING 88 MG/DL (70-100); POTASSIUM SERUM 4.6 MEQ/L (3.5-5.1); SODIUM LEVEL 133 MEQ/L (136-145); VANCOMYCIN RANDOM 22.2 UG/ML
[2017-09-25 06:27] LABS: ERYTHROCYTE SEDIMENTATION RATE 55 mm/hr (0-20)
[2017-09-25] MEDS: HumaLOG INSULIN (NovoLOG) PER UNIT SC ×4 (07:30→21:00)
[2017-09-25] MEDS: FIDAXOMICIN 200 MG TAB (DIFICID) PO ×2 (10:56→21:36)
[2017-09-25] MEDS: ENOXAPARIN 30 MG/0.3 ML SYR (J1650) SC (10:56)
[2017-09-25] MEDS: ASPIRIN 81 MG ENTERIC TAB PO (10:56)
[2017-09-25] MEDS: CLOPIDOGREL 75 MG TAB PO (10:56)
[2017-09-25] MEDS: PANTOPRAZOLE 40MG TAB (PROTONIX) PO (10:56)
[2017-09-25 12:09] LABS: BEDSIDE GLUCOSE 87 MG/DL (70-105)
[2017-09-25] MEDS: EUCERIN 120GM CREAM EXT (12:10)
[2017-09-25 16:32] LABS: BEDSIDE GLUCOSE 71 MG/DL (70-105)
[2017-09-25] MEDS: NS 1,000 ML IV (17:00)
[2017-09-25 17:55] LABS: LACTIC ACID SEPSIS PROTOCOL 1.4 MMOL/L (0.4-2.0)
[2017-09-25] MEDS: DIGOXIN 0.25 MG TAB PO (21:36)
[2017-09-25 21:37] LABS: BEDSIDE GLUCOSE 77 MG/DL (70-105)
[2017-09-26] MEDS: IPRATROPIUM 0.5MG/ALBUTEROL 2.5MG INH SOL UD 3ML (DUONEB)(J7620) NEB ×4 (01:23→20:12)
[2017-09-26 05:57] LABS: HEMATOCRIT 32.8 % (42.0-52.0); HEMOGLOBIN 10.6 g/dl (13.5-17.5); MEAN CORPUSCULAR HEMOGLOBIN 30.9 pg (27.0-33.0); MEAN CORPUSCULAR HGB CONC 32.3 g/dl (32.0-36.5); MEAN CORPUSCULAR VOLUME 95.6 fl (80.0-96.0); RED BLOOD COUNT 3.43 10^6/uL (4.30-6.10); RED CELL DISTRIBUTION WIDTH 15.3 % (11.5-14.5); WHITE BLOOD COUNT 6.7 10^3/uL (4.0-10.0)
[2017-09-26] MEDS: METOPROLOL TART 25 MG TABLET PO ×5 (06:00→23:55)
[2017-09-26 06:25] LABS: ANION GAP 8 MEQ/L (8-16); BLOOD UREA NITROGEN 24 MG/DL (7-18); CALCIUM LEVEL 8.4 MG/DL (8.5-10.1); CARBON DIOXIDE LEVEL 27 MEQ/L (21-32); CHLORIDE LEVEL 101 MEQ/L (98-107); GLOMERULAR FILTRATION RATE 18.6 (>56); GLUCOSE, FASTING 114 MG/DL (70-100); POTASSIUM SERUM 4.2 MEQ/L (3.5-5.1); SODIUM LEVEL 136 MEQ/L (136-145)
[2017-09-26 06:33] LABS: PLATELET COUNT, AUTOMATED 86 10^3/uL (150-450)
[2017-09-26] MEDS: ENOXAPARIN 30 MG/0.3 ML SYR (J1650) SC (07:22)
[2017-09-26 07:24] LABS: ERYTHROCYTE SEDIMENTATION RATE 47 mm/hr (0-20)
[2017-09-26] MEDS: VANCOMYCIN HCL 750 MG, VIAL MATE ADAPTER 1 EACH in D5W 250 ML IV (07:55)
[2017-09-26] MEDS: **VANCO AFTER HD** MISC XX ×2 (07:55→16:00)
[2017-09-26] MEDS: HumaLOG INSULIN (NovoLOG) PER UNIT SC ×4 (07:56→20:27)
[2017-09-26] MEDS: FIDAXOMICIN 200 MG TAB (DIFICID) PO ×2 (07:56→20:18)
[2017-09-26] MEDS: PANTOPRAZOLE 40MG TAB (PROTONIX) PO (07:56)
[2017-09-26] MEDS: CLOPIDOGREL 75 MG TAB PO (07:56)
[2017-09-26] MEDS: ASPIRIN 81 MG ENTERIC TAB PO (07:57)
[2017-09-26] MEDS: EUCERIN 120GM CREAM EXT (08:08)
[2017-09-26 11:35] LABS: BEDSIDE GLUCOSE 77 MG/DL (70-105)
[2017-09-26 17:41] LABS: BEDSIDE GLUCOSE 136 MG/DL (70-105)
[2017-09-26 20:30] LABS: BEDSIDE GLUCOSE 122 MG/DL (70-105)
[2017-09-27] MEDS: IPRATROPIUM 0.5MG/ALBUTEROL 2.5MG INH SOL UD 3ML (DUONEB)(J7620) NEB ×4 (01:25→20:19)
[2017-09-27 05:32] LABS: HEMATOCRIT 31.8 % (42.0-52.0); HEMOGLOBIN 10.5 g/dl (13.5-17.5); MEAN CORPUSCULAR VOLUME 93.8 fl (80.0-96.0); PLATELET COUNT, AUTOMATED 108 10^3/uL (150-450); RED BLOOD COUNT 3.39 10^6/uL (4.30-6.10); RED CELL DISTRIBUTION WIDTH 15.4 % (11.5-14.5); WHITE BLOOD COUNT 7.3 10^3/uL (4.0-10.0)
[2017-09-27 05:47] LABS: ANION GAP 10 MEQ/L (8-16); BLOOD UREA NITROGEN 29 MG/DL (7-18); CALCIUM LEVEL 8.4 MG/DL (8.5-10.1); CARBON DIOXIDE LEVEL 27 MEQ/L (21-32); CHLORIDE LEVEL 97 MEQ/L (98-107); CREATININE FOR GFR 4.32 MG/DL (0.70-1.30); GLUCOSE, FASTING 89 MG/DL (70-100); POTASSIUM SERUM 4.1 MEQ/L (3.5-5.1); SODIUM LEVEL 134 MEQ/L (136-145)
[2017-09-27 05:55] LABS: ERYTHROCYTE SEDIMENTATION RATE 43 mm/hr (0-20)
[2017-09-27] MEDS: METOPROLOL TART 25 MG TABLET PO ×3 (06:39→18:20)
[2017-09-27] MEDS: HumaLOG INSULIN (NovoLOG) PER UNIT SC ×4 (07:30→20:43)
[2017-09-27] MEDS: ENOXAPARIN 30 MG/0.3 ML SYR (J1650) SC (09:33)
[2017-09-27] MEDS: ASPIRIN 81 MG ENTERIC TAB PO (09:34)
[2017-09-27] MEDS: FIDAXOMICIN 200 MG TAB (DIFICID) PO ×2 (09:34→20:40)
[2017-09-27] MEDS: PANTOPRAZOLE 40MG TAB (PROTONIX) PO (09:34)
[2017-09-27] MEDS: EUCERIN 120GM CREAM EXT (09:34)
[2017-09-27] MEDS: CLOPIDOGREL 75 MG TAB PO (09:34)
[2017-09-27] MEDS: ACETAMINOPHEN TAB 650MG DOSE (2X325MG) PO (09:39)
[2017-09-27 11:48] LABS: BEDSIDE GLUCOSE 93 MG/DL (70-105)
[2017-09-27] MEDS: GASTROGRAFIN SOLUTION 30ML PO ×2 (13:18→13:40)
[2017-09-27] MEDS ORDERED: ISOVUE-370 76% 100ML VIAL (Q9967) As Ordered (14:32)
[2017-09-27] MEDS: **VANCO AFTER HD** MISC XX (16:00)
[2017-09-27 17:21] LABS: BEDSIDE GLUCOSE 91 MG/DL (70-105)
[2017-09-27 20:44] LABS: BEDSIDE GLUCOSE 96 MG/DL (70-105)
[2017-09-28] MEDS: METOPROLOL TART 25 MG TABLET PO ×4 (01:46→18:00)
[2017-09-28] MEDS: IPRATROPIUM 0.5MG/ALBUTEROL 2.5MG INH SOL UD 3ML (DUONEB)(J7620) NEB ×4 (02:59→19:51)
[2017-09-28 05:10] LABS: BEDSIDE GLUCOSE 74 MG/DL (70-105)
[2017-09-28 05:25] LABS: HEMATOCRIT 32.1 % (42.0-52.0); HEMOGLOBIN 10.5 g/dl (13.5-17.5); MEAN CORPUSCULAR HEMOGLOBIN 30.7 pg (27.0-33.0); MEAN CORPUSCULAR HGB CONC 32.7 g/dl (32.0-36.5); MEAN CORPUSCULAR VOLUME 93.9 fl (80.0-96.0); PLATELET COUNT, AUTOMATED 117 10^3/uL (150-450); RED BLOOD COUNT 3.42 10^6/uL (4.30-6.10); RED CELL DISTRIBUTION WIDTH 15.4 % (11.5-14.5); WHITE BLOOD COUNT 6.2 10^3/uL (4.0-10.0)
[2017-09-28 05:44] LABS: ERYTHROCYTE SEDIMENTATION RATE 52 mm/hr (0-20)
[2017-09-28 05:51] LABS: ANION GAP 8 MEQ/L (8-16); BLOOD UREA NITROGEN 34 MG/DL (7-18); CALCIUM LEVEL 8.4 MG/DL (8.5-10.1); CARBON DIOXIDE LEVEL 27 MEQ/L (21-32); CHLORIDE LEVEL 97 MEQ/L (98-107); CREATININE FOR GFR 5.05 MG/DL (0.70-1.30); GLOMERULAR FILTRATION RATE 12.6 (>56); GLUCOSE, FASTING 75 MG/DL (70-100); POTASSIUM SERUM 4.6 MEQ/L (3.5-5.1); SODIUM LEVEL 132 MEQ/L (136-145)
[2017-09-28] MEDS: HumaLOG INSULIN (NovoLOG) PER UNIT SC ×4 (05:56→20:25)
[2017-09-28 07:35] LABS: ALBUMIN 2.3 GM/DL (3.2-5.2); VANCOMYCIN RANDOM 24.1 UG/ML
[2017-09-28] MEDS: ASPIRIN 81 MG ENTERIC TAB PO (08:19)
[2017-09-28] MEDS: PANTOPRAZOLE 40MG TAB (PROTONIX) PO (08:20)
[2017-09-28] MEDS: FIDAXOMICIN 200 MG TAB (DIFICID) PO ×2 (08:20→20:24)
[2017-09-28] MEDS: CLOPIDOGREL 75 MG TAB PO (08:21)
[2017-09-28] MEDS: ENOXAPARIN 30 MG/0.3 ML SYR (J1650) SC (08:23)
[2017-09-28] MEDS: EUCERIN 120GM CREAM EXT (08:24)
[2017-09-28] MEDS: ACETAMINOPHEN TAB 650MG DOSE (2X325MG) PO ×2 (08:30→16:00)
[2017-09-28 08:39] LABS: BEDSIDE GLUCOSE 73 MG/DL (70-105)
[2017-09-28] MEDS: DEXTROSE 50% 50 ML SYRINGE IV ×2 (08:45→13:42)
[2017-09-28] MEDS: HEPARIN 1,000 UNITS/ML 10ML VIAL (FOR RADIOLOGY& DIALYSIS ONLY) IV (11:30)
[2017-09-28 13:27] LABS: BEDSIDE GLUCOSE 64 MG/DL (70-105)
[2017-09-28] MEDS ORDERED: PROPOFOL 200 MG/20 ML VIAL As Ordered ×3 (13:34→15:16)
[2017-09-28] MEDS ORDERED: LIDOCAINE 2% INJ 100 MG/5 ML SDV (FOR ANES.) As Ordered (13:34)
[2017-09-28] MEDS: ACETAMINOPHEN 650 MG SUPP PR (13:47)
[2017-09-28] MEDS: CETACAINE SPRAY 5GM As Ordered (15:01)
[2017-09-28] MEDS ORDERED: PHENYLephrine HCL 500 MCG/5 ML (100MCG/ML) SYRINGE (J2370) As Ordered (15:16)
[2017-09-28] MEDS ORDERED: ACETAMINOPHEN SUSP DYE FREE 160 MG/5 ML UDC As Ordered (15:48)
[2017-09-28] MEDS: IBUPROFEN 100 MG/5 ML SUSP UDC DYE FREE PO (15:50)
[2017-09-28] MEDS ORDERED: IBUPROFEN 100 MG/5 ML SUSP UDC DYE FREE As Ordered (15:51)
[2017-09-28] MEDS ORDERED: VANCOMYCIN HCL 500 MG in D5W MINI-BAG PLUS 100 ML IV (16:00)
[2017-09-28 17:08] LABS: BEDSIDE GLUCOSE 69 MG/DL (70-105)
[2017-09-28] MEDS: **VANCO AFTER HD** MISC XX (17:30)
[2017-09-28] MEDS: DAPTOmycin 750 MG in NS 50 ML IV (18:56)
[2017-09-28] MEDS: DIGOXIN 0.25 MG TAB PO (20:25)
[2017-09-28 20:29] LABS: BEDSIDE GLUCOSE 150 MG/DL (70-105)
== END 2017-09-28 21:45 | disposition short-term general hospital (02) | DRG 871 ==
LOC: M PCU 09-23 16:10 → M ED 09:54 → M ED INP 13:43 → M ICU 15:36
PROVIDERS: Hospitalist
PROC: B24BZZ4 Ultrasonography of Heart with Aorta, Transesophageal (ICD-10-PCS; principal; 2017-09-28 14:00)
PROC: 5A1D70Z Performance of Urinary Filtration, Intermittent, Less than 6 Hours Per Day (ICD-10-PCS; 2017-09-28 14:53)
DX: A41.9 Sepsis, unspecified organism (principal); N18.6 End stage renal disease; I50.41 Acute combined systolic (congestive) and diastolic (congestive) heart failure; G93.41 Metabolic encephalopathy; I33.0 Acute and subacute infective endocarditis; A04.72 Enterocolitis due to Clostridium difficile, not specified as recurrent; L03.115 Cellulitis of right lower limb; I13.2 Hypertensive heart and chronic kidney disease with heart failure and with stage 5 chronic kidney disease, or end stage renal disease; N25.81 Secondary hyperparathyroidism of renal origin; R18.8 Other ascites; I25.10 Atherosclerotic heart disease of native coronary artery without angina pectoris; I48.0 Paroxysmal atrial fibrillation; E11.51 Type 2 diabetes mellitus with diabetic peripheral angiopathy without gangrene; E11.40 Type 2 diabetes mellitus with diabetic neuropathy, unspecified; J44.9 Chronic obstructive pulmonary disease, unspecified; I27.20 Pulmonary hypertension, unspecified; I51.89 Other ill-defined heart diseases; B95.61 Methicillin susceptible Staphylococcus aureus infection as the cause of diseases classified elsewhere; K21.9 Gastro-esophageal reflux disease without esophagitis; R59.1 Generalized enlarged lymph nodes; R65.20 Severe sepsis without septic shock; I35.1 Nonrheumatic aortic (valve) insufficiency; I34.0 Nonrheumatic mitral (valve) insufficiency; E78.00 Pure hypercholesterolemia, unspecified; B95.62 Methicillin resistant Staphylococcus aureus infection as the cause of diseases classified elsewhere; E11.649 Type 2 diabetes mellitus with hypoglycemia without coma; R94.6 Abnormal results of thyroid function studies; E11.22 Type 2 diabetes mellitus with diabetic chronic kidney disease; D63.1 Anemia in chronic kidney disease; Z98.62 Peripheral vascular angioplasty status; Z79.82 Long term (current) use of aspirin; Z79.4 Long term (current) use of insulin; Z79.02 Long term (current) use of antithrombotics/antiplatelets; Z99.2 Dependence on renal dialysis; Z95.828 Presence of other vascular implants and grafts; Z95.5 Presence of coronary angioplasty implant and graft; Z91.048 Other nonmedicinal substance allergy status; Z91.018 Allergy to other foods; Z88.8 Allergy status to other drugs, medicaments and biological substances; Z89.421 Acquired absence of other right toe(s); Z87.891 Personal history of nicotine dependence; Z98.41 Cataract extraction status, right eye; Z98.42 Cataract extraction status, left eye; I25.2 Old myocardial infarction